=== PATIENT | male | born 1940 | race Caucasian/White ===

== ENCOUNTER 2017-02-10 10:58 | Inpatient (IN) | payer OTHER, BC ==
[2017-02-10 11:03] VITALS: BMI 28.5
[2017-02-10] MEDS ORDERED: SODIUM CHLORIDE 2,000 ML IV STA (11:25)
--- NOTE | 2017-02-10 11:25 | PDOC ---
History of Present Illness - General History Source: Patient Exam Limitations: No Limitations - History of Present Illness Initial Comments: 02/10/17 11:32 The patient is a 76 year old male with a significant past medical history of asthma, and hypertension, sent from Urgent Care center presenting to the Emergency Department with low back pain, low blood pressure, and shortness of breath. The patient reports that he was golfing on Tuesday morning, and started experiencing low back pain afterward. He admits that he could not walk on Tuesday due to the pain. He describes the back pain as at his lower to mid back , nonradiating, and exacerbated by any movement. He reports that the pain has become worse since Tuesday, and that he only slept for two hours last night due to the pain. He also reports shortness of breath. He states going to Urgent Care , where his blood pressure was 70, and was sent here to the ED. He admits that this week he drove down to [place] for a . He states that he has never experienced this type of back pain. The patient denies chest pain, palpitations, and diaphoresis. Patient denies neck pain. Patient denies nausea, vomiting, and diarrhea. Patient denies abdominal pain. Patient denies dizziness, or headache. Patient denies numbness or tingling to the extremities. PCP: Dr. Galeano <Sera Edmonds - Last Filed: 02/10/17 15:25> <Marybel Diallo - Last Filed: 02/10/17 18:21> - General Chief Complaint: Pain Stated Complaint: BACK PAIN Time Seen by Provider: 02/10/17 11:13 Past History <Sera Edmonds - Last Filed: 02/10/17 15:25> - Past Medical History Asthma: Yes HTN: Yes - Surgical History Abdominal Surgery: Yes (HERNIA) - Psycho/Social/Smoking Cessation Hx Suicidal Ideation: No Smoking History: Never smoked Information on smoking cessation initiated: No <Marybel Diallo - Last Filed: 02/10/17 18:21> - Past Medical History Allergies/Adverse Reactions: Allergies Allergy/AdvReac Type Severity Reaction Status Date / Time No Known Allergies Allergy Verified 02/10/17 11:03 Home Medications: Ambulatory Orders Atenolol [Tenormin -] 50 mg PO DAILY 02/10/17 Diltiazem HCl [Diltiazem 24Hr Cd] 300 mg PO DAILY 02/10/17 Fluticasone/Salmeterol [Advair Hfa 230-21 Mcg Inhaler] 1 inh PO BID 02/10/17 Losartan/Hydrochlorothiazide [Hyzaar 50-12.5 Tablet] 2 each PO BID 02/10/17 Montelukast Na [Singulair -] 10 mg PO DAILY 02/10/17 Review of Systems - Review of Systems Able to Perform ROS?: Yes Comments:: 02/10/17 11:33 GENERAL/CONSTITUTIONAL: + low blood pressure. No fever or chills. No weakness. HEAD, EYES, EARS, NOSE AND THROAT: No change in vision. No ear pain or discharge. No sore throat. CARDIOVASCULAR: + shortness of breath. No chest pain. RESPIRATORY: No cough, wheezing, or hemoptysis. GASTROINTESTINAL: No nausea, vomiting, diarrhea or constipation. GENITOURINARY: No dysuria, frequency, or change in urination. MUSCULOSKELETAL: + low back pain. No joint or muscle swelling or pain. No neck pain. SKIN: No rash NEUROLOGIC: No headache, vertigo, loss of consciousness, or change in strength/ sensation. ENDOCRINE: No increased thirst. No abnormal weight change. HEMATOLOGIC/LYMPHATIC: No anemia, easy bleeding, or history of blood clots. ALLERGIC/IMMUNOLOGIC: No hives or skin allergy. <Sera Edmonds - Last Filed: 02/10/17 15:25> *Physical Exam - Vital Signs Last Vital Signs Temp Pulse Resp BP Pulse Ox 97.7 F 87 18 84/62 92 L 02/10/17 10:58 02/10/17 10:58 02/10/17 10:58 02/10/17 10:58 02/10/17 10:58 - Physical Exam Comments: 02/10/17 11:34 GENERAL: Awake, alert, appears uncomfortable. Mild pallor HEAD: No signs of trauma EYES: PERRLA, EOMI, sclera anicteric, conjunctiva clear ENT: Auricles normal inspection, hearing grossly normal, nares patent, oropharynx clear without exudates. Moist mucosa NECK: Normal ROM, supple, no lymphadenopathy, JVD, or masses LUNGS: Breath sounds equal, clear to auscultation bilaterally. No wheezes, and no crackles HEART: Regular rate and rhythm, normal S1 and S2, no murmurs, rubs or gallops ABDOMEN: Soft, nontender, normoactive bowel sounds. No guarding, no rebound. No masses EXTREMITIES: Normal range of motion, no edema. No clubbing or cyanosis. No cords, erythema, or tenderness NEUROLOGICAL: Cranial nerves II through XII grossly intact. Normal speech SKIN: Warm, Dry, normal turgor, no rashes or lesions noted. <Sera Edmonds - Last Filed: 02/10/17 15:25> - Vital Signs Last Vital Signs Temp Pulse Resp BP Pulse Ox 97.7 F 87 18 84/62 92 L 02/10/17 10:58 02/10/17 10:58 02/10/17 10:58 02/10/17 10:58 02/10/17 10:58 <Marybel Diallo - Last Filed: 02/10/17 18:21> ED Treatment Course - LABORATORY CBC & Chemistry Diagram: 02/10/17 11:30 02/10/17 11:30 - RADIOLOGY Radiograph Interpretation: 02/10/17 14:00 Chest XRay As reviewed by Dr. Nikita Carlin IMPRESSION: No acute chest pathology. Weak inspiration. Old skeletal trauma. Elevated right hemidiaphragm. Clear lungs. More prominent heart than 06/21/2016. 02/10/17 15:[address]/ Pelvis CT/ Chest CT As reviewed by Dr. Lona Reyes IMPRESSION: Mild aneurysmal dilation of the ascending and mild aneurysmal dilation of the distal abdominal aorta and right common iliac artery without evidence of dissection. Multiple calcified atheromatous plaques are present. <Sera Edmonds - Last Filed: 02/10/17 15:25> - LABORATORY CBC & Chemistry Diagram: 02/10/17 11:30 02/10/17 11:30 - RADIOLOGY Radiology Studies Ordered: Category Date Time Status CHEST X-RAY PORTABLE* [RAD] Stat Radiology 02/10/17 11:17 Ordered <Marybel Diallo - Last Filed: 02/10/17 18:21> Medical Decision Making - Medical Decision Making 02/10/17 12:48 Dr. Traore was called at his office at 12:41. Awaiting call back. 02/10/17 13:03 Dr. Traore was overhead paged at 12:53. Awaiting call back. 02/10/17 13:06 Dr. Morrow spoke to Dr. Diallo about the patient's care. 02/10/17 13:59 Dr. Traore returned call at 1:[address] Diallo about the patient' s care. <Sera Edmonds - Last Filed: 02/10/17 15:25> - Medical Decision Making Initial presentation concerning for PE vs dissection. Patient with PE risk factors- hypotensive, recent long car trip. However, he is not tachycardic, and pain localizes to low back. He also has history of HTN, which raises risk of dissection. The pain localizes to low back and is not reproducible. I obtained CTA to r/o dissection, as it was more likely based on this presentation. D/w Dr. Traore, will evaluate. CTA negative for dissection. Patient was desatting on arrival back from CT- improved with O2 via nasal cannula. Etiology of symptoms and vital sign findings is unclear at present. D/w Dr. Morrow, will admit. <Marybel Diallo - Last Filed: 02/10/17 18:21> *DC/Admit/Observation/Transfer - Attestations Scribe Attestion: 02/10/17 11:34 Documentation prepared by Sera Edmonds, acting as senior medical transcriptionist for Marybel Diallo MD. <Sera Edmonds - Last Filed: 02/10/17 15:25> - Discharge Dispostion Admit: Yes <Marybel Diallo - Last Filed: 02/10/17 18:21> Diagnosis at time of Disposition: Back pain Qualifiers: Back pain location: low back pain Chronicity: acute Back pain laterality: bilateral Sciatica presence: without sciatica Qualified Code(s): M54.5 - Low back pain Hypotension Qualifiers: Hypotension type: unspecified hypotension type Qualified Code(s): I95.9 - Hypotension, unspecified - Discharge Dispostion Condition at time of disposition: Guarded - Referrals
[2017-02-10 11:47] LABS: BASOPHIL 0.6 % (0-2.0); EOSINOPHIL 0.1 % (0-4.5); MCH 34.4 pg (25.7-33.7); MCHC 33.4 g/dl (32.0-35.9); MEAN PLT VOLUME 8.6 fl (7.5-11.1); NEUTROPHILS 94.6 % (42.8-82.8); PLATELET COUNT 116 K/MM3 (134-434); RDW 13.8 % (11.9-15.9); WHITE BLOOD COUNT 10.5 K/mm3 (4.0-10.0)
[2017-02-10 12:05] LABS: ALBUMIN 3.2 g/dl (3.4-5.0); ANION GAP 18 (8-16); CALCIUM 8.8 mg/dL (8.5-10.1); CO2 22 mmol/L (21-32); COCKROFT - GAULT 44.58; CREATININE 1.8 mg/dL (0.7-1.3); GLUCOSE,RANDOM 91 mg/dL (74-106); SGPT/ALT 36 U/L (12-78); TOT PROT 7.2 g/dl (6.4-8.2)
[2017-02-10 12:07] LABS: INR 1.32 (0.82-1.09); PROTHROMBIN TIME (PATIENT) 14.6 SEC (9.98-11.88)
[2017-02-10 12:08] LABS: ALK PHOS 77 U/L (45-117); SGOT/AST 53 U/L (15-37); TROPONIN I < 0.02 ng/ml (0.00-0.05)
--- NOTE | 2017-02-10 13:08 | EKG ---
Test Reason : Blood Pressure : / mmHG Vent. Rate : 078 BPM Atrial Rate : 078 BPM P-R Int : 192 ms QRS Dur : 098 ms QT Int : 404 ms P-R-T Axes : 031 -23 -01 degrees QTc Int : 460 ms NORMAL SINUS RHYTHM MINIMAL VOLTAGE CRITERIA FOR LVH, MAY BE NORMAL VARIANT BORDERLINE ECG WHEN COMPARED WITH ECG OF 21-JUN-2016 12:21, NO SIGNIFICANT CHANGE WAS FOUND Confirmed by MARIBELL LOPEZ, DARIUS ([id number]) on 02/10/2017 1:08:19 PM Referred By: Confirmed By:DARIUS REYNA MD
[2017-02-10] MEDS ORDERED: SODIUM CHLORIDE 1,000 ML IV STA (13:13)
--- NOTE | 2017-02-10 15:27 | CONSULT ---
Consult Consult Specialty:: Nephrology Reason for Consultation:: elevated creatinine - History of Present Illness Chief Complaint: lower back pain History of Present Illness: Pt is a 76 year old male with pmhx of HTN who presents to the ER with back pain. He has had the pain intermittently for several days. He feels that it is mostly in his lower back. He went on several long car rides over the last week. He went on a [address] for a and few days he went on a 80 mile ride for a family wedding. He went to urgent care to have his back evaluated and he had a blood pressure of about 70 systolic, after which he was sent to the ER. He was taken for CT scan and given contrast to rule out disseciton. I was called to evaluate him for elevated creatinine. He denies dysuria or hematuria. He takes naproxen on a daily basis. - History Source History Provided By: Patient, Medical Record - Past Medical History Cardio/Vascular: Yes: HTN Pulmonary: Yes: Asthma - Smoking History Smoking history: Never smoked Home Medications - Allergies Allergies/Adverse Reactions: Allergies Allergy/AdvReac Type Severity Reaction Status Date / Time No Known Allergies Allergy Verified 02/10/17 11:03 - Home Medications Home Medications: Ambulatory Orders Atenolol [Tenormin -] 50 mg PO DAILY 02/10/17 Diltiazem HCl [Diltiazem 24Hr Cd] 300 mg PO DAILY 02/10/17 Fluticasone/Salmeterol [Advair Hfa 230-21 Mcg Inhaler] 1 inh PO BID 02/10/17 Losartan/Hydrochlorothiazide [Hyzaar 50-12.5 Tablet] 2 each PO BID 02/10/17 Montelukast Na [Singulair -] 10 mg PO DAILY 02/10/17 Family Disease History - Family Disease History Family History: Denies Review of Systems - Review of Systems Constitutional: denies: Chills, Diaphoresis, Fever Eyes: reports: No Symptoms HENT: reports: No Symptoms Neck: reports: No Symptoms Cardiovascular: denies: Edema, Palpitations Respiratory: denies: SOB, SOB on Exertion Gastrointestinal: reports: No Symptoms Genitourinary: reports: No Symptoms Musculoskeletal: reports: Back Pain Integumentary: reports: No Symptoms Neurological: reports: No Symptoms Endocrine: reports: No Symptoms Hematology/Lymphatic: reports: No Symptoms Physical Exam Vital Signs: Vital Signs Temperature 97.7 F 02/10/17 10:58 Pulse Rate 78 02/10/17 15:25 Respiratory Rate 18 02/10/17 15:25 Blood Pressure 118/72 02/10/17 15:25 O2 Sat by Pulse Oximetry (%) 98 02/10/17 15:25 Constitutional: Yes: Calm Eyes: Yes: Conjunctiva Clear HENT: Yes: Atraumatic Neck: Yes: Supple Cardiovascular: Yes: S1, S2 Respiratory: Yes: CTA Bilaterally Gastrointestinal: Yes: Soft Renal/: Yes: WNL Musculoskeletal: Yes: Back Pain Extremities: Yes: WNL Edema: No Neurological: Yes: Oriented Psychiatric: Yes: Oriented Labs: Laboratory Tests 02/10/17 02/10/17 02/10/17 11:30 11:30 11:30 WBC 10.5 H Hgb 14.3 Plt Count 116 L Sodium 134 L Potassium 4.3 Chloride 94 L Carbon Dioxide 22 Anion Gap 18 H BUN 42 H Creatinine 1.8 H Lactic Acid 3.6 H* AST 53 H ALT 36 Alkaline Phosphatase 77 Creatine Kinase 235 Troponin I < 0.02 B-Natriuretic Peptide Total Protein 7.2 Albumin 3.2 L 02/10/17 02/10/17 14:28 15:45 WBC Hgb Plt Count Sodium Potassium Chloride Carbon Dioxide Anion Gap BUN Creatinine Lactic Acid 2.8 H* AST ALT Alkaline Phosphatase Creatine Kinase Troponin I B-Natriuretic Peptide 2359.99 H Total Protein Albumin Imaging - Results Cat Scan: Report Reviewed (abd aneurysm, negative for dissection) Problem List - Problems (1) Back pain Code(s): M54.9 - DORSALGIA, UNSPECIFIED Qualifiers: Back pain location: low back pain Chronicity: acute Back pain laterality: bilateral Sciatica presence: without sciatica Qualified Code(s): M54.5 - Low back pain (2) Hypotension Code(s): I95.9 - HYPOTENSION, UNSPECIFIED Qualifiers: Hypotension type: unspecified hypotension type Qualified Code(s): I95.9 - Hypotension, unspecified (3) ALBERTO (acute kidney injury) Code(s): N17.9 - ACUTE KIDNEY FAILURE, UNSPECIFIED Assessment/Plan Current Medications Generic Name Dose Route Start Last Admin Trade Name Freq PRN Reason Stop Dose Admin Acetaminophen 650 mg 02/10/17 15:43 Tylenol - PO Q4H PRN FEVER OR PAIN Docusate Sodium 100 mg 02/10/17 22:00 Colace - PO BID [facility] Heparin Sodium (Porcine) 5,000 unit 02/10/17 22:00 Heparin - SQ TID DOMITILA Hydromorphone HCl 1 mg 02/10/17 15:43 02/10/17 17:11 Dilaudid Injection - IVPB 1 mg Q4H PRN Administration PAIN Sodium Chloride 1,000 mls @ 75 mls/hr 02/10/17 15:45 02/10/17 17:10 Normal Saline - IV 75 mls/hr ASDIR DOMITILA Administration Montelukast Sodium 10 mg 02/10/17 22:00 Singulair - PO HS DOMITILA Non-Formulary Medication 1 inh 02/10/17 22:00 Fluticasone/Salmeterol [Advair Hfa 230-21 Mcg Inhaler] PO BID DOMITILA Ondansetron HCl 4 mg 02/10/17 15:43 Zofran Injection IVPB Q6H PRN NAUSEA Oxycodone HCl 5 mg 02/10/17 15:43 Roxicodone - PO Q4H PRN PAIN Polyethylene Glycol 17 gm 02/11/17 10:00 Miralax (For Daily Use) - PO DAILY [facility] Zolpidem Tartrate 5 mg 02/10/17 17:39 Ambien - PO HS PRN Impression 1. ALBERTO 2. lactic acidosis 3. hypotension 4. hx of HTN 5. asthma 6. back pain 7. r/o dissection Plan - will need to check renal function at 48 hours - pt came in with back pain and went for ct to r/o dissection. He does have aneurysms. - blood pressure is improving - hold all bp meds for now - lactic acid improving as well - send blood cultures - send urine cultures - renal and bladder ultrasound - check urine lytes and ua - will follow Dr Traore
[2017-02-10] MEDS ORDERED: ONDANSETRON 4 MG/2 ML VIAL IVPB PRN (15:43)
[2017-02-10] MEDS ORDERED: SODIUM CHLORIDE 1,000 ML IV SCH (15:45)
--- NOTE | 2017-02-10 15:48 | HP ---
Admitting History and Physical - Primary Care Physician PCP: Josh Galeano - Admission Chief Complaint: My back is hurting History of Present Illness: Mr Santacruz is a very pleasant 76 year old male who comes in with back pain and hypotension. He recently drove to [facility] and back this past weekend. He was doing well on Tuesday, but on Tuesday he developed severe back pain. The back pain is mainly located on the left side in the middle and lower back. It does not radiated. He took some aleve that day and slept in a chair. On Tuesday he felt fine and carried out his activities of daily living. However today he woke up with severe back pain. He presented to the urgent care center and was found to be hypotensive and was sent to the ER. He says the pain is a dull type of pain. It does not radiate. It is worsened by movements. He does not have incontinence associated with it. He did not have difficulty walking secondary to the back pain, however he said he frequently has difficulty walking secondary to a lesion on his left foot. He did not have trauma to his back recently. He denies fevers, chills, chest pain, shortness of breath, nausea , vomiting, diarrhea, constipation, difficulty or pain on urination, or swelling. He is still having back pain. History Source: Patient Limitations to Obtaining History: No Limitations - Past Medical History Cardiovascular: Yes: HTN Pulmonary: Yes: COPD - Past Surgical History Past Surgical History: Yes: Hernia Repair - Smoking History Smoking history: Never smoked - Alcohol/Substance Use Hx Alcohol Use: No History of Substance Use: reports: None - Social History ADL: Independent History of Recent Travel: Yes (as above) Home Medications - Allergies Allergies/Adverse Reactions: Allergies Allergy/AdvReac Type Severity Reaction Status Date / Time No Known Allergies Allergy Verified 02/10/17 11:03 - Home Medications Home Medications: Ambulatory Orders Atenolol [Tenormin -] 50 mg PO DAILY 02/10/17 Diltiazem HCl [Diltiazem 24Hr Cd] 300 mg PO DAILY 02/10/17 Fluticasone/Salmeterol [Advair Hfa 230-21 Mcg Inhaler] 1 inh PO BID 02/10/17 Losartan/Hydrochlorothiazide [Hyzaar 50-12.5 Tablet] 2 each PO BID 02/10/17 Montelukast Na [Singulair -] 10 mg PO DAILY 02/10/17 Review of Systems Findings/Remarks: full review of systems obtained, as per HPI and otherwise negative Physical Examination Vital Signs: Vital Signs Temperature 98.3 F 02/10/17 15:27 Pulse Rate 63 02/10/17 15:27 Respiratory Rate 18 02/10/17 15:27 Blood Pressure 118/72 02/10/17 15:27 O2 Sat by Pulse Oximetry (%) 100 02/10/17 15:27 Constitutional: Yes: No Distress, Calm, Obese Eyes: Yes: Conjunctiva Clear, EOM Intact, PERRL HENT: Yes: Atraumatic, Normocephalic Cardiovascular: Yes: Regular Rate and Rhythm. No: Gallop, Murmur, Rub Respiratory: Yes: Regular, CTA Bilaterally. No: Rales, Rhonchi, Wheezes Gastrointestinal: Yes: Normal Bowel Sounds, Soft. No: Distention, Tenderness Musculoskeletal: Yes: Back Pain Extremities: Yes: WNL Edema: No Labs: Laboratory Results - last 24 hr 02/10/17 02/10/17 02/10/17 11:30 11:30 11:30 WBC 10.5 H RBC 4.17 Hgb 14.3 Hct 42.9 MCV 103.0 H MCHC 33.4 RDW 13.8 Plt Count 116 L MPV 8.6 Neutrophils % 94.6 H Lymphocytes % 1.2 L Monocytes % 3.5 L Eosinophils % 0.1 Basophils % 0.6 INR 1.32 H Sodium 134 L Potassium 4.3 Chloride 94 L Carbon Dioxide 22 Anion Gap 18 H BUN 42 H Creatinine 1.8 H Creat Clearance w eGFR 37.07 Random Glucose 91 Lactic Acid Calcium 8.8 Total Bilirubin 1.0 AST 53 H ALT 36 Alkaline Phosphatase 77 Creatine Kinase 235 Creatine Kinase Index 2.3 CK-MB (CK-2) 5.217 H CK-MB (CK-2) Rel Index Troponin I < 0.02 B-Natriuretic Peptide Total Protein 7.2 Albumin 3.2 L Urine Color Urine Appearance Urine pH Urine Protein Urine Glucose (UA) Urine Ketones Urine Blood Urine Nitrite Urine Bilirubin Urine Urobilinogen Ur Leukocyte Esterase Urine RBC Urine WBC Ur Epithelial Cells Granular Casts Urine Mucus 02/10/17 02/10/17 02/10/17 11:30 11:30 14:28 WBC RBC Hgb Hct MCV MCHC RDW Plt Count MPV Neutrophils % Lymphocytes % Monocytes % Eosinophils % Basophils % INR Sodium Potassium Chloride Carbon Dioxide Anion Gap BUN Creatinine Creat Clearance w eGFR Random Glucose Lactic Acid 3.6 H* Calcium Total Bilirubin AST ALT Alkaline Phosphatase Creatine Kinase Creatine Kinase Index CK-MB (CK-2) CK-MB (CK-2) Rel Index Cancelled Troponin I B-Natriuretic Peptide 2359.99 H Total Protein Albumin Urine Color Urine Appearance Urine pH Urine Protein Urine Glucose (UA) Urine Ketones Urine Blood Urine Nitrite Urine Bilirubin Urine Urobilinogen Ur Leukocyte Esterase Urine RBC Urine WBC Ur Epithelial Cells Granular Casts Urine Mucus 02/10/17 02/10/17 15:45 18:40 WBC RBC Hgb Hct MCV MCHC RDW Plt Count MPV Neutrophils % Lymphocytes % Monocytes % Eosinophils % Basophils % INR Sodium Potassium Chloride Carbon Dioxide Anion Gap BUN Creatinine Creat Clearance w eGFR Random Glucose Lactic Acid 2.8 H* Calcium Total Bilirubin AST ALT Alkaline Phosphatase Creatine Kinase Creatine Kinase Index CK-MB (CK-2) CK-MB (CK-2) Rel Index Troponin I B-Natriuretic Peptide Total Protein Albumin Urine Color Yellow Urine Appearance Clear Urine pH 5.0 Urine Protein 1+ H Urine Glucose (UA) Negative Urine Ketones Negative Urine Blood 2+ H Urine Nitrite Negative Urine Bilirubin Negative Urine Urobilinogen Negative Ur Leukocyte Esterase 3+ H Urine RBC 4 Urine WBC 24 Ur Epithelial Cells Rare Granular Casts 15 Urine Mucus Rare Imaging - Results Chest X-ray: Report Reviewed, Image Reviewed Cat Scan: Report Reviewed, Image Reviewed Problem List - Problems (1) SIRS (systemic inflammatory response syndrome) Assessment/Plan: -patient presents with signs of SIRS -admit to the hospital -hydrate with IVF -check urinalysis, urine culture, and blood culture -ID consult Code(s): R65.10 - SIRS OF NON-INFECTIOUS ORIGIN W/O ACUTE ORGAN DYSFUNCTION (2) Lactic acidosis Assessment/Plan: -unclear source, ? dehydration if having severe pain -also evaluate for infection -labs as above -CT scan abdomen reviewed and with normal bowel sounds without abdominal pain, low suspicion for ischemic colitis -hydrate with IVF Code(s): E87.2 - ACIDOSIS (3) ALBERTO (acute kidney injury) Assessment/Plan: -secondary to NSAID use -nephrology consulted -hydration Code(s): N17.9 - ACUTE KIDNEY FAILURE, UNSPECIFIED (4) Back pain Assessment/Plan: -consult neurosurgery -appears musculoskeletal -PT consult -pain control Code(s): M54.9 - DORSALGIA, UNSPECIFIED Qualifiers: Back pain location: low back pain Chronicity: acute Back pain laterality: bilateral Sciatica presence: without sciatica Qualified Code(s): M54.5 - Low back pain (5) Hypotension Code(s): I95.9 - HYPOTENSION, UNSPECIFIED Qualifiers: Hypotension type: unspecified hypotension type Qualified Code(s): I95.9 - Hypotension, unspecified
[2017-02-10] MEDS: HYDROmorphone HCL CARPU-JECT 1 MG/1 ML DISP.SYRIN IVPB PRN ×2 (17:11→21:12)
[2017-02-10] MEDS ORDERED: ZOLPIDEM TARTRATE 5 MG TABLET PO PRN (17:39)
[2017-02-10 19:30] LABS: URINE APPEARANCE CLEAR; URINE BILIRUBIN NEGATIVE (NEGATIVE); URINE COLOR YELLOW; URINE GLUCOSE (UA) NEGATIVE (NEGATIVE); URINE KETONE NEGATIVE (NEGATIVE); URINE NITRITE NEGATIVE (NEGATIVE); URINE UROBILINOGEN NEGATIVE E.U./dl (0.2-1.0)
[2017-02-10 19:31] LABS: URINE BLOOD 2+ (NEGATIVE); URINE LEUK ESTERASE 3+ (NEGATIVE); URINE PROTEIN 1+ (NEGATIVE)
[2017-02-10 19:33] LABS: GRANULAR CASTS 15 /lpf; URINE MUCUS RARE; URINE RBC 4 /hpf (0-3); URINE WBC 24 /hpf (3-5)
[2017-02-10] MEDS: MONTELUKAST NA 10 MG TABLET PO SCH (21:09)
[2017-02-10] MEDS: HEPARIN NA (PORCINE) 5,000 UNITS/ML 1ML VIAL SQ SCH (21:09)
[2017-02-10] MEDS: DOCUSATE SODIUM 100 MG CAPSULE (FP) PO SCH (21:09)
[2017-02-10] MEDS ORDERED: PATIENT'S OWN MEDICATION (NON-FORMULARY) (Fluticasone/Salmeterol [Advair Hfa 230-21 Mcg In PO SCH (22:00)
[2017-02-11] MEDS: HEPARIN NA (PORCINE) 5,000 UNITS/ML 1ML VIAL SQ SCH ×3 (05:21→21:38)
[2017-02-11] MEDS: HYDROmorphone HCL CARPU-JECT 1 MG/1 ML DISP.SYRIN IVPB PRN ×4 (05:22→21:46)
--- NOTE | 2017-02-11 07:27 | PN ---
Progress Note (short form) - Note Progress Note: NEUROSURGERY CONSULT DICTATED H/o Htn and COPD c/o 2 days h/o severe back pain and hypotension. Increased gardening, lifting over past week and extensive driving. NO LE pain radiation. Intermittent L foot pain. No B/B/ incontinence, Denies leg weakness/numbness/ tingling. R/O'd for aortic dissection. PE: AF, VSS HEENT- NC/AT; Neck- supple; Cor- RR; Lungs- no wheezes; Abd- obese, benign; Ext - No sign of DVT CN- intact; Motor- 5/5 except L IP 4, L Quad/EHL/TA/gastroc/inv/ev 4-; Sensation - diminished PP/LL L L4-5; DTR- hyporeflexic B Back- tender L > R LS junction CT abd- atelectasis B bases, mild dilatation of abd aorta; ? L4-5 vs L5-S1 DDD/ anterolisthesis on sagittal views WBC 10.5.Hgb 14.3; INR 1.32; BUN 42, Cr 1.8; Lactic acid 3.6 - 2.8; blood and urine culture pending UA- 24 WBC and 3+ josefina esterase Probable L4-5 or L5-S1 spondylolisthesis with mechanical LBP UTI Renal insufficiency (prerenal), f/u BUN/Cr Noncontrast MRI recommended to assess alignment and canal PT Neurontin-lidoderm Consider pain management input
[2017-02-11] MEDS: GABAPENTIN 100 MG CAPSULE (FP) PO SCH ×3 (08:25→21:38)
[2017-02-11] MEDS: LIDOCAINE 5% TOPICAL PATCH TP SCH (09:13)
[2017-02-11] MEDS: DOCUSATE SODIUM 100 MG CAPSULE (FP) PO SCH ×2 (09:13→21:38)
[2017-02-11] MEDS: POLYETHYLENE GLYCOL 3350 119 GM BTL PO SCH (09:14)
--- NOTE | 2017-02-11 09:23 | PN ---
Progress Note, Physician Chief Complaint: Back pain better but he has received Opiod for pain relief. History of Present Illness: Patient with ER visit seemingly for left sided low back pain was noted in Urgent Care to be hypotensive and sent to our ER. past Hx: Hypertension and Choledocholithiasis. Had been taking long trips and doing a lot of gardening in the last week. No cough or nausea or dysuria. Workup in ER revealed non dissecting TAA of 4.1 cm and AAA of 2.8cm. Small lung nodule seen and Cholelithiasis on the scans. Urine: some WBC an RBC and renal lab mildly high on admission and he had contrast; await today's renal lab. Renal and bladder sono OK but a large urine residual noted. Just had both blood C/S reportd as +. ID has been consulted. ??source ?discitis ??UTI or prostatitis causing sepsis. Dr. Mirza suggested MRI. - Current Medication List Current Medications: Active Medications Acetaminophen (Tylenol -) 650 mg PO Q4H PRN PRN Reason: FEVER OR PAIN Docusate Sodium (Colace -) 100 mg PO BID [facility] Last Admin: 02/11/17 09:13 Dose: 100 mg Gabapentin (Neurontin -) 100 mg PO TID [facility] Last Admin: 02/11/17 08:25 Dose: 100 mg Heparin Sodium (Porcine) (Heparin -) 5,000 unit SQ TID [facility] Last Admin: 02/11/17 05:21 Dose: 5,000 unit Hydromorphone HCl (Dilaudid Injection -) 1 mg IVPB Q4H PRN PRN Reason: PAIN Last Admin: 02/11/17 09:14 Dose: 1 mg Sodium Chloride (Normal Saline -) 1,000 mls @ 75 mls/hr IV ASDIR [facility] Last Admin: 02/10/17 17:10 Dose: 75 mls/hr Lidocaine (Lidoderm Patch -) 1 patch TP DAILY [facility] Last Admin: 02/11/17 09:13 Dose: 1 patch Miscellaneous (Lidoderm Patch Removal) 1 each MC DAILY@2200 [facility] Montelukast Sodium (Singulair -) 10 mg PO HS [facility] Last Admin: 02/10/17 21:09 Dose: Not Given Non-Formulary Medication (Fluticasone/Salmeterol [Advair Hfa 230-21 Mcg Inhaler] ) 1 inh PO BID [facility] Ondansetron HCl (Zofran Injection) 4 mg IVPB Q6H PRN PRN Reason: NAUSEA Oxycodone HCl (Roxicodone -) 5 mg PO Q4H PRN PRN Reason: PAIN Polyethylene Glycol (Miralax (For Daily Use) -) 17 gm PO DAILY [facility] Last Admin: 02/11/17 09:14 Dose: 17 gm Zolpidem Tartrate (Ambien -) 5 mg PO HS PRN Last Admin: 02/10/17 21:10 Dose: 5 mg - Objective Vital Signs: Vital Signs Temperature 99.1 F 02/11/17 05:46 Pulse Rate 85 02/11/17 05:46 Respiratory Rate 20 02/11/17 05:46 Blood Pressure 128/81 02/11/17 05:46 O2 Sat by Pulse Oximetry (%) 94 L 02/10/17 21:00 Constitutional: Yes: Calm, Mild Distress (when turning) Eyes: Yes: Conjunctiva Clear Cardiovascular: Yes: Regular Rate and Rhythm Respiratory: Yes: Regular, Rales (at bases) Gastrointestinal: Yes: Soft, Hyperactive Bowel Sounds. No: Tenderness Genitourinary: No: CVA Tenderness - Left Edema: No Neurological: Yes: Alert, Oriented (slightly lethargic due to pain Rx.) Labs: INR, PTT INR 1.32 (0.82-1.09) H 02/10/17 11:30 - ....Imaging Cat Scan: Report Reviewed Problem List - Problems (1) ALBERTO (acute kidney injury) Assessment/Plan: await repeat Renal lab post IV contrast Seen by renal MD Code(s): N17.9 - ACUTE KIDNEY FAILURE, UNSPECIFIED (2) Back pain Assessment/Plan: Acute and persists even with Opiod Rx Code(s): M54.9 - DORSALGIA, UNSPECIFIED Qualifiers: Back pain location: low back pain Chronicity: acute Back pain laterality: bilateral Sciatica presence: without sciatica Qualified Code(s): M54.5 - Low back pain (3) Hypotension Assessment/Plan: Improved on IV fluids but rales now noted; to cut back on IV rate. Code(s): I95.9 - HYPOTENSION, UNSPECIFIED Qualifiers: Hypotension type: unspecified hypotension type Qualified Code(s): I95.9 - Hypotension, unspecified (4) Lactic acidosis Code(s): E87.2 - ACIDOSIS (5) Sepsis associated hypotension Assessment/Plan: Blood C/S X2 positive on preliminary report ID MD has been consulted. Code(s): A41.9 - SEPSIS, UNSPECIFIED ORGANISM (6) AAA (abdominal aortic aneurysm) without rupture Assessment/Plan: 2.8 cm AAA and 4.1CM TAA Code(s): I71.4 - ABDOMINAL AORTIC ANEURYSM, WITHOUT RUPTURE
--- NOTE | 2017-02-11 09:26 | CONS ---
DATE OF CONSULTATION: 02/11/2017 REQUESTING PHYSICIAN: Jeb Morrow MD AUDIT DIRECTOR: Josh Simpson MD, Neurosurgery. CHIEF COMPLAINT: Acute lower back pain. HISTORY OF PRESENT ILLNESS: The patient is a 76-year-old right-handed male with history of hypertension and COPD, who complains of 2-day history of severe sudden onset lower back pain. He has a history of intermittent lower back pain in the past, but it has always been mild and self-containing. He has been doing a lot of gardening work and lifting of bags of mulch for his gardening this past week and has driven long distances. After playing golf Tuesday, he started experiencing severe pain in the evening into the next day. The pain is in the lower back. It is nonradiating. He denies significant shortness of breath, and has no fever or chills. He was found to be hypotensive. Aortic dissection was ruled out by CTA. He was admitted for further management of his pain and evaluation of his condition. He denies any leg weakness, numbness, or tingling, and has no bowel/bladder dysfunction. He did initially have some constipation, which resolved. Pain is rated as 10 out of 1-10 scale. PAST MEDICAL HISTORY: Hypertension, COPD, and obesity. MEDICATIONS: Currently includes Advair, Zofran, Tylenol, subcutaneous heparin, Ambien, Colace, MiraLAX, Singulair, Dilaudid, and oxycodone. ALLERGIES: To ALOE. SOCIAL HISTORY: He used to be a smoker and quit several years ago. He last smoke a cigar about 2 years ago. He drinks alcohol socially. He is retired and lives at home with his . REVIEW OF SYSTEMS: Otherwise negative for other major cardiovascular, pulmonary , gastrointestinal, genitourinary, endocrinologic, neurologic, or psychologic problems except for the above. PHYSICAL EXAMINATION: Vital signs: Temperature is 99.1, blood pressure is 128/81 (upon initial evaluation in the emergency room, blood pressure was 84/62), O2 saturation is 94% on 2 L. HEENT: Examination shows him to be normocephalic, atraumatic, anicteric. Neck: Supple. Coronary: Examination demonstrated a regular rhythm. Lungs: Clear. There are no wheezes. He has decreased breath sounds at the bases. Abdomen: Benign, but obese. Extremities: Examination shows no signs of DVT. Neurologic: He is awake and alert and oriented x4. Cranial nerve examination is intact 2-12. Motor examination shows 5/5 strength except left iliopsoas, which is 4/5, and left quadriceps, tibialis anterior, foot eversion, foot inversion, extensor hallucis longus, and gastrocnemius, which are 4-. Sensory examination shows diminished pinprick and light touch sensation of left L4 and L5 distribution. Distal vibratory sensation is slightly diminished. Deep tendon reflexes are hyporeflexive throughout. There is no pathological long tract sign. Examination of the back shows paraspinal muscle spasm and tenderness at the lumbosacral junction, left greater than right. His gait was not tested for safety reasons. LABORATORY EXAMINATION: Shows sodium to be 134, potassium is 4.3, BUN is 42, creatinine is 1.8. INR is 1.32. White blood cell count is 10,500, hemoglobin is 14.3, and platelet count is 116,000. Initial lactic acid is 3.6 and subsequent followup was 2.8. Troponin was less than 0.02. Urinalysis shows 3+ leukocyte esterase with 24 WBCs and 4 RBCs. CTA of the chest and abdomen demonstrated mild dilatation of the abdominal aorta. There is no aortic dissection or true aortic aneurysm. On the periphery of the abdominal CTA, there appears to be spondylolisthesis either at the L4-L5 or the L5-S1 level with degenerative disc disease. Detail was difficult to visualize because it was at the periphery of the imaging. IMPRESSION: 1. Hypertension. 2. Chronic obstructive pulmonary disease. 3. Urinary tract infection. 4. Elevated BUN/creatinine with possible prerenal azotemia. 5. Probable L4-L5 versus L5-S1 spondylolisthesis with lower back pain exacerbation. RECOMMENDATIONS: The patient presents with 2-day history of acute onset lower back pain. He has had some intermittent lower back pain in the past. He has no fevers or chills, even though he has an abnormal urinalysis. Urine culture is pending. This might be the cause of his recent increase in pain or alternatively, it could be from his increased recent physical exertion. An MRI of the lumbar spine is recommended to assess the lumbosacral junction in terms of possible/probable spondylolisthesis and spinal stenosis. Additionally, Lidoderm patches for his pain management regimen in addition to Neurontin. If his pain persists, pain management consultation could be helpful for possible pain management injections. I did advise the patient to lose weight and to pursue a course of physical therapy with emphasis on core modality treatment and core strengthening exercises. All questions were answered. JOSH ISMPSON M.D. MISHEL/[id number] MTDD
[2017-02-11 09:29] LABS: MCH 34.3 pg (25.7-33.7); MCHC 33.6 g/dl (32.0-35.9); MEAN CELL VOLUME 102.1 fl (80-96); MEAN PLT VOLUME 8.6 fl (7.5-11.1); PLATELET COUNT 91 K/MM3 (134-434); RDW 13.8 % (11.9-15.9); WHITE BLOOD COUNT 8.2 K/mm3 (4.0-10.0)
[2017-02-11 09:55] LABS: CALCIUM 8.2 mg/dL (8.5-10.1); COCKROFT - GAULT 66.87; CREATININE 1.2 mg/dL (0.7-1.3); MAGNESIUM 1.8 mg/dL (1.8-2.4); PHOSPHOROUS 3.5 mg/dL (2.5-4.9)
[2017-02-11] MEDS: SODIUM CHLORIDE 1,000 ML IV SCH ×2 (10:00→21:39)
--- NOTE | 2017-02-11 11:16 | PN ---
Progress Note (short form) - Note Progress Note: ID Consult dictated 76 y/o male admitted with worsening low back pain Blood c/s + GPCCL x 3/4 bottles Staph bacteremia, possible endocarditis Possible discitis/ vertebral osteo/ paraspinal abscess R lower back rash ? portal of entry of staph Lactic acidosis Thrombocytopenia secondary to sepsis Azotemia Await c/s MRI Echo ESR, CRP Empiric vancomycin
[2017-02-11] MEDS ORDERED: POTASSIUM CHLORIDE ORAL LIQUID 20 MEQ/15 ML PO ONE (12:00)
--- NOTE | 2017-02-11 12:08 | CONS ---
DATE OF CONSULTATION: DATE OF DICTATION: 02/11/2017 HISTORY OF PRESENT ILLNESS: A 76-year-old male evaluated for positive blood cultures. The patient presents with worsening low back pain. He reports that over the past 2 to 3 weeks he has significantly increased his activities. He had been working on his 's garden and had been carrying heavy objects. In addition, he was golfing and had driven long distances within the past week. This past Tuesday, February 08, he developed worsening low back pain to the point where he was unable to ambulate. He had presented to an urgent care center where he was found to be hypotensive and was referred to the emergency room. Patient was noted to be hypotensive with an elevated lactic acid level and acute renal failure. He was admitted to the hospital. Blood cultures were obtained and are now positive, gram-positive cocci in clusters in all 4 bottles. He denies any traumatic injuries. He did apply a topical anesthetic to the low back area and had developed a blistering rash above the right buttock. No purulent drainage was reported. He denies any fever or chills. No recent skin infections. No recent dental work. PAST MEDICAL HISTORY: Positive for bronchial asthma, hypertension. ALLERGIES: No known drug allergies. MEDICATIONS: Include Lidoderm, Zofran, Neurontin, Ambien, Colace, Singulair, Dilaudid. SOCIAL HISTORY: He resides at home. He is a nonsmoker, nondrinker. SYSTEMS REVIEW: Neurologic: No loss of consciousness, seizure activity, focal weakness. Cardiac: Negative chest pain or palpitations. Respiratory: Negative cough or sputum production. Gastrointestinal: Negative vomiting or diarrhea. Genitourinary: Negative for urinary tract infection. LABORATORY DATA: White count on admission 10.2, presently 8.2, hematocrit 40.3, platelet count 91. BUN 39, creatinine 1.2. Lactic acid 2.8. Urinalysis: Red cells 4, 24 white cells. Chest x-ray: Negative for acute infiltrate. PHYSICAL EXAMINATION: General: He is out of bed to chair. He is awake and alert. He is in no acute distress. Vital Signs: Temperature 97.9, T-max 99.1, blood pressure 133/87, pulse 94 and regular, respiration 20 per minute. HEENT: Sclerae anicteric. No conjunctival hemorrhages. Cardiac: Heart sounds S1, S2. Tachycardic. No murmur. Lungs: Crepitations, bases bilaterally. Abdomen: Obese, soft, nontender. Extremities: Edema 1+. IMPRESSION: A 76-year-old male admitted with worsening low back pain, now with positive blood cultures for Staphylococcus. 1. Staphylococcal bacteremia, possible endocarditis. 2. Possible diskitis/vertebral osteomyelitis/paraspinal abscess. 3. Lactic acidosis. 4. Thrombocytopenia secondary to sepsis. 5. Azotemia. RECOMMENDATIONS: Source of Staphylococcal bacteremia not clear. He does have a blistering rash present on the right buttock area which may be the portal of entry. Await identification of blood isolate. Start empiric vancomycin. Obtain sedimentation rate, C-reactive protein, MRI of the lumbar spine, echocardiogram. Case discussed with Dr. Josh Mirza. Will follow. Thank you for the kind referral. MARIA TERESA HALL M.D. [id number]
[2017-02-11 12:52] LABS: PLATELET ESTIMATE DECREASED (NORMAL)
--- NOTE | 2017-02-11 13:01 | PN ---
Progress Note, Physician History of Present Illness: Pt seen and examined at bedside. He is awake and alert. He does have shortness of breath today. He was found to have bacteremia. - Current Medication List Current Medications: Active Medications Acetaminophen (Tylenol -) 650 mg PO Q4H PRN PRN Reason: FEVER OR PAIN Docusate Sodium (Colace -) 100 mg PO BID [facility] Last Admin: 02/11/17 09:13 Dose: 100 mg Gabapentin (Neurontin -) 100 mg PO TID [facility] Last Admin: 02/11/17 08:25 Dose: 100 mg Heparin Sodium (Porcine) (Heparin -) 5,000 unit SQ TID [facility] Last Admin: 02/11/17 05:21 Dose: 5,000 unit Hydromorphone HCl (Dilaudid Injection -) 1 mg IVPB Q4H PRN PRN Reason: PAIN Last Admin: 02/11/17 09:14 Dose: 1 mg Sodium Chloride (Normal Saline -) 1,000 mls @ 100 mls/hr IV ASDIR [facility] Last Admin: 02/11/17 10:00 Dose: 100 mls/hr Vancomycin HCl 1,250 mg/ (Dextrose) 250 mls @ 166.667 mls/hr IVPB BID@0100, 1300 [facility] Lidocaine (Lidoderm Patch -) 1 patch TP DAILY [facility] Last Admin: 02/11/17 09:13 Dose: 1 patch Miscellaneous (Lidoderm Patch Removal) 1 each MC DAILY@2200 [facility] Montelukast Sodium (Singulair -) 10 mg PO HS [facility] Last Admin: 02/10/17 21:09 Dose: Not Given Non-Formulary Medication (Fluticasone/Salmeterol [Advair Hfa 230-21 Mcg Inhaler] ) 1 inh PO BID [facility] Ondansetron HCl (Zofran Injection) 4 mg IVPB Q6H PRN PRN Reason: NAUSEA Oxycodone HCl (Roxicodone -) 5 mg PO Q4H PRN PRN Reason: PAIN Polyethylene Glycol (Miralax (For Daily Use) -) 17 gm PO DAILY [facility] Last Admin: 02/11/17 09:14 Dose: 17 gm Zolpidem Tartrate (Ambien -) 5 mg PO HS PRN Last Admin: 02/10/17 21:10 Dose: 5 mg - Objective Vital Signs: Vital Signs Temperature 97.9 F 02/11/17 09:50 Pulse Rate 94 H 02/11/17 09:50 Respiratory Rate 20 02/11/17 09:50 Blood Pressure 133/87 02/11/17 09:50 O2 Sat by Pulse Oximetry (%) 94 L 02/11/17 09:00 Constitutional: Yes: Calm Eyes: Yes: Conjunctiva Clear HENT: Yes: Atraumatic Cardiovascular: Yes: S1, S2 Respiratory: Yes: On Nasal O2, Wheezes Gastrointestinal: Yes: Soft, Abdomen, Obese Genitourinary: Yes: WNL Musculoskeletal: Yes: Back Pain Extremities: Yes: WNL Edema: No Neurological: Yes: Oriented Psychiatric: Yes: Oriented Labs: CBC, BMP 02/11/17 09:15 02/11/17 09:15 INR, PTT INR 1.32 (0.82-1.09) H 02/10/17 11:30 - ....Imaging Ultrasound: Report Reviewed Problem List - Problems (1) Back pain Code(s): M54.9 - DORSALGIA, UNSPECIFIED Qualifiers: Back pain location: low back pain Chronicity: acute Back pain laterality: bilateral Sciatica presence: without sciatica Qualified Code(s): M54.5 - Low back pain (2) Hypotension Code(s): I95.9 - HYPOTENSION, UNSPECIFIED Qualifiers: Hypotension type: unspecified hypotension type Qualified Code(s): I95.9 - Hypotension, unspecified (3) ALBERTO (acute kidney injury) Code(s): N17.9 - ACUTE KIDNEY FAILURE, UNSPECIFIED Assessment/Plan Current Medications Generic Name Dose Route Start Last Admin Trade Name Harshalq PRN Reason Stop Dose Admin Acetaminophen 650 mg 02/10/17 15:43 Tylenol - PO Q4H PRN FEVER OR PAIN Docusate Sodium 100 mg 02/10/17 22:00 02/11/17 09:13 Colace - PO 100 mg BID [facility] Administration Gabapentin 100 mg 02/11/17 08:00 02/11/17 08:25 Neurontin - PO 100 mg TID [facility] Administration Heparin Sodium (Porcine) 5,000 unit 02/10/17 22:00 02/11/17 05:21 Heparin - SQ 5,000 unit TID [facility] Administration Hydromorphone HCl 1 mg 02/10/17 15:43 02/11/17 09:14 Dilaudid Injection - IVPB 1 mg Q4H PRN Administration PAIN Sodium Chloride 1,000 mls @ 100 mls/hr 02/11/17 09:45 02/11/17 10:00 Normal Saline - IV 100 mls/hr ASDIR [facility] Administration Vancomycin HCl 1,250 mg/ 250 mls @ 166.667 mls/hr 02/11/17 13:00 Dextrose IVPB BID@0100,1300 [facility] Lidocaine 1 patch 02/11/17 10:00 02/11/17 09:13 Lidoderm Patch - TP 1 patch DAILY [facility] Administration Miscellaneous 1 each 02/11/17 22:00 Lidoderm Patch Removal MC DAILY@2200 [facility] Montelukast Sodium 10 mg 02/10/17 22:00 02/10/17 21:09 Singulair - PO Not Given HS [facility] Non-Formulary Medication 1 inh 02/10/17 22:00 Fluticasone/Salmeterol [Advair Hfa 230-21 Mcg Inhaler] PO BID [facility] Ondansetron HCl 4 mg 02/10/17 15:43 Zofran Injection IVPB Q6H PRN NAUSEA Oxycodone HCl 5 mg 02/10/17 15:43 Roxicodone - PO Q4H PRN PAIN Polyethylene Glycol 17 gm 02/11/17 10:00 02/11/17 09:14 Miralax (For Daily Use) - PO 17 gm DAILY [facility] Administration Zolpidem Tartrate 5 mg 02/10/17 17:39 02/10/17 21:10 Ambien - PO 5 mg HS PRN Administration Laboratory Tests 02/10/17 18:40 Urine Protein 1+ H Urine Blood 2+ H Ur Leukocyte Esterase 3+ H Impression 1. ALBERTO 2. lactic acidosis 3. hypotension 4. hx of HTN 5. asthma 6. back pain 7. r/o dissection 8. sepsis 9. bacteremia Plan - creatinine is improved - ID input appreciated, agree with abx. Pt is going for imaging to identify a possible source - decrease rate of fluids - replace potassium - check mag level - cont to follow cultures - restart asthma meds - will follow Dr Traore
[2017-02-11] MEDS: VANCOMYCIN 1,250 MG in DEXTROSE 5%-WATER - 250 ML IVPB SCH (13:48)
[2017-02-11] MEDS: ACETAMINOPHEN 325 MG TABLET (FP) PO PRN (14:37)
[2017-02-11] MEDS: oxyCODONE HCL 5 MG TABLET PO PRN (14:38)
[2017-02-11] MEDS: ALBUTEROL SO4 2.5/IPRATROPIUM 0.5 INH SOL 3 ML VIAL.NEB. NEB PRN ×2 (15:00→21:08)
[2017-02-11] MEDS: MONTELUKAST NA 10 MG TABLET PO SCH (21:38)
[2017-02-11] MEDS: LIDOCAINE PATCH REMOVAL MC SCH (22:00)
[2017-02-12] MEDS: VANCOMYCIN 1,250 MG in DEXTROSE 5%-WATER - 250 ML IVPB SCH (01:37)
[2017-02-12] MEDS: HYDROmorphone HCL CARPU-JECT 1 MG/1 ML DISP.SYRIN IVPB PRN ×3 (03:27→20:29)
[2017-02-12] MEDS: HEPARIN NA (PORCINE) 5,000 UNITS/ML 1ML VIAL SQ SCH ×3 (06:08→21:37)
[2017-02-12] MEDS: GABAPENTIN 100 MG CAPSULE (FP) PO SCH ×3 (06:09→21:38)
[2017-02-12] MEDS: oxyCODONE HCL 5 MG TABLET PO PRN ×2 (06:33→23:02)
[2017-02-12] MEDS: ACETAMINOPHEN 325 MG TABLET (FP) PO PRN (06:33)
[2017-02-12] MEDS ORDERED: dilTIAZem HCL 50 MG/10 ML - 10 ML VIAL IVPUSH ONE ×3 (06:51→08:30)
--- NOTE | 2017-02-12 07:23 | HOSP ---
Subjective - Review of Symptoms Events since last encounter: patient develops a new a fib with RVR 130's no chest pain, sob; BP 140's systolic EKG no ACS, afib RVR 130, l axis div, no st changes compared to admission ekg No history of a fib per family A fib RVR -cardizem 10 IV; no effect of heart rate, start toprol xl 25 d and add PRN cardizem -start full dose a/c with Hep -Cardio consult -troponin, TFTs Physical Examination Vital Signs: Vital Signs Temperature 97.8 F 02/12/17 02:09 Pulse Rate 109 H 02/12/17 02:09 Respiratory Rate 20 02/12/17 02:09 Blood Pressure 145/89 02/12/17 02:09 O2 Sat by Pulse Oximetry (%) 94 L 02/11/17 21:00 Visit type - Emergency Visit Emergency Visit: Yes ED Registration Date: 02/10/17 Care time: The patient presented to the Emergency Department on the above date and was hospitalized for further evaluation of their emergent condition. - New Patient This patient is new to me today: Yes Date on this admission: 02/12/17 - Critical Care Critical Care patient: No
[2017-02-12 07:30] LABS: MCH 33.6 pg (25.7-33.7); MEAN CELL VOLUME 101.9 fl (80-96); MEAN PLT VOLUME 9.1 fl (7.5-11.1); PLATELET COUNT 55 K/MM3 (134-434); RDW 14.1 % (11.9-15.9)
[2017-02-12 07:44] LABS: INR 1.2 (0.82-1.09); PROTHROMBIN TIME (PATIENT) 13.2 SEC (9.98-11.88)
--- NOTE | 2017-02-12 08:13 | PN ---
Progress Note (short form) - Note Progress Note: NEUROSURGERY Some LBP ON vanco for gram + bacteremia PE: Tmax 100.2, VSS HEENT- NC/AT; Neck- supple; Cor- RR; Lungs- no wheezes; Abd- obese, benign; Ext - No sign of DVT CN- intact; Motor- 5/5 except L IP 4, L Quad/EHL/TA/gastroc/inv/ev 4-; Sensation - diminished PP/LT L L4-5; DTR- hyporeflexic B Back- tender L > R LS junction CT abd- atelectasis B lung bases, mild dilatation of abd aorta; ? L4-5 vs L5-S1 DDD/anterolisthesis on sagittal views WBC 7; CRP 30.9; ESR pending Blood culture - + staph (gram + cocci in clusters) sensitivity pending Probable L4-5 or L5-S1 spondylolisthesis with mechanical LBP UTI Renal insufficiency (prerenal), f/u BUN/Cr Noncontrast LS spine MRI recommended to assess alignment and canal PT Neurontin-lidoderm D/w Dr Herrera
[2017-02-12] MEDS ORDERED: ALPRAZolam 0.25 MG TABLET PO ONE (08:30)
[2017-02-12] MEDS ORDERED: dilTIAZem HCL 30 MG TABLET (FP) PO ONE (08:30)
[2017-02-12] MEDS: HEPARIN - 25,000 UNIT in SODIUM CHLORIDE 495 ML IV SCH (08:55)
--- NOTE | 2017-02-12 09:29 | PN ---
Progress Note, Physician Chief Complaint: ID IN Severe pain due to low back pain tachcardic Vancomycin Dilaudid - Current Medication List Current Medications: Active Medications Acetaminophen (Tylenol -) 650 mg PO Q4H PRN PRN Reason: FEVER OR PAIN Last Admin: 02/12/17 06:33 Dose: 650 mg Albuterol/Ipratropium (Duoneb -) 1 amp NEB Q6H PRN PRN Reason: SHORTNESS OF BREATH Last Admin: 02/11/17 21:08 Dose: 1 amp Diltiazem HCl (Cardizem Injection -) 10 mg IVPUSH Q4H PRN PRN Reason: TACHYCARDIA Docusate Sodium (Colace -) 100 mg PO BID [facility] Last Admin: 02/11/17 21:38 Dose: 100 mg Gabapentin (Neurontin -) 100 mg PO TID [facility] Last Admin: 02/12/17 06:09 Dose: 100 mg Heparin Sodium (Porcine) (Heparin -) 5,000 unit SQ TID [facility] Last Admin: 02/12/17 06:08 Dose: 5,000 unit Heparin Sodium (Porcine) (Heparin -) 1,000 unit IVPUSH PRN PRN PRN Reason: Heparin Heparin Sodium (Porcine) (Heparin -) 5,000 unit IVPUSH PRN PRN PRN Reason: Heparin Hydromorphone HCl (Dilaudid Injection -) 1 mg IVPB Q4H PRN PRN Reason: PAIN Last Admin: 02/12/17 03:27 Dose: 1 mg Vancomycin HCl 1,250 mg/ (Dextrose) 250 mls @ 166.667 mls/hr IVPB BID@0100, 1300 [facility] Last Admin: 02/12/17 01:37 Dose: 166.667 mls/hr Heparin Sodium (Porcine) 25, (000 unit/ Sodium Chloride) 500 mls @ 20 mls/hr IV TITR [facility]; 1,000 UNIT/HR PRN Reason: Protocol Last Admin: 02/12/17 08:55 Dose: 20 mls/hr Lidocaine (Lidoderm Patch -) 1 patch TP DAILY [facility] Last Admin: 02/11/17 09:13 Dose: 1 patch Metoprolol Succinate (Toprol Xl -) 25 mg PO DAILY [facility] Miscellaneous (Lidoderm Patch Removal) 1 each [facility] DAILY@2200 [facility] Last Admin: 02/11/17 22:00 Dose: Not Given Montelukast Sodium (Singulair -) 10 mg PO HS [facility] Last Admin: 02/11/17 21:38 Dose: 10 mg Non-Formulary Medication (Fluticasone/Salmeterol [Advair Hfa 230-21 Mcg Inhaler] ) 1 inh PO BID [facility] Ondansetron HCl (Zofran Injection) 4 mg IVPB Q6H PRN PRN Reason: NAUSEA Oxycodone HCl (Roxicodone -) 5 mg PO Q4H PRN PRN Reason: PAIN Last Admin: 02/12/17 06:33 Dose: 5 mg Polyethylene Glycol (Miralax (For Daily Use) -) 17 gm PO DAILY [facility] Last Admin: 02/11/17 09:14 Dose: 17 gm Zolpidem Tartrate (Ambien -) 5 mg PO HS PRN Last Admin: 02/10/17 21:10 Dose: 5 mg - Objective Vital Signs: Vital Signs Temperature 97.9 F 02/12/17 06:30 Pulse Rate 135 H 02/12/17 06:30 Respiratory Rate 20 02/12/17 06:30 Blood Pressure 113/69 02/12/17 06:30 O2 Sat by Pulse Oximetry (%) 94 L 02/11/17 21:00 Constitutional: Yes: Moderate Distress, Other (Distress) Eyes: Yes: Other (No petechiae) Neck: Yes: WNL, Supple Cardiovascular: Yes: Tachycardia, S1. No: Murmur Respiratory: Yes: WNL, Regular, CTA Bilaterally Gastrointestinal: Yes: WNL, Normal Bowel Sounds, Soft. No: Tenderness, Tenderness, Epigastrium Edema: No Neurological: Yes: WNL Labs: CBC, BMP 02/12/17 06:00 INR, PTT INR 1.20 (0.82-1.09) H 02/12/17 06:00 Assessment/Plan Microbiology 02/10/17 18:40 Urine - Urine Clean Catch Urine Culture - Final NO GROWTH OBTAINED 02/10/17 20:30 Blood - Peripheral Venous Blood Culture - Preliminary Presumptive Mssa (Pbp2a Neg) 02/10/17 20:25 Blood - Peripheral Venous Blood Culture - Preliminary Presumptive Mssa (Pbp2a Neg) Laboratory Tests 02/10/17 02/11/17 02/11/17 18:40 09:15 09:55 WBC Hgb Plt Count BUN 39 H Creatinine 1.2 D C-Reactive Protein 30.9 H Urine RBC 4 Urine WBC 24 02/12/ 06:00 WBC 7.0 Hgb 13.4 Plt Count 55 L D BUN Creatinine C-Reactive Protein Urine RBC Urine WBC Assessment 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
[2017-02-12 09:42] LABS: ALBUMIN 2.2 g/dl (3.4-5.0); BILIRUBIN,TOTAL 0.7 mg/dL (0.2-1.0); CALCIUM 7.8 mg/dL (8.5-10.1); COCKROFT - GAULT 72.95; CREATININE 1.1 mg/dL (0.7-1.3); GLUCOSE,RANDOM 80 mg/dL (74-106); SGOT/AST 36 U/L (15-37); TOT PROT 5.7 g/dl (6.4-8.2)
--- NOTE | 2017-02-12 09:52 | CON.CARD ---
Consult Consult Specialty:: Cardiology Referred by:: Josh Galeano MD Reason for Consultation:: Rapid afib - History of Present Illness Chief Complaint: Back pain History of Present Illness: Mr Santacruz is a 76 year old male h/o HTN, 4.1 cm TAA admitted with severe lower back pain and hypotension without fevers or chills, noted to have MSSA bacteremia with concern for possible discitis/ vertebral osteo/ paraspinal abscess, he developed rapid afib in 140's, reports dyspnea, but denies chest pain, near or true syncope, palpitations, orthopnea, PND or LE edema, given Cardizem for rate control, started on heparin gtt, reports left foot pain and parasthesias. - History Source History Provided By: Patient Limitations to Obtaining History: No Limitations - Past Medical History Cardio/Vascular: Yes: HTN Pulmonary: Yes: COPD - Past Surgical History Past Surgical History: Yes: Hernia Repair - Alcohol/Substance Use Hx Alcohol Use: No History of Substance Use: reports: None - Smoking History Smoking history: Never smoked - Social History ADL: Independent History of Recent Travel: Yes (as above) Home Medications - Allergies Allergies/Adverse Reactions: Allergies Allergy/AdvReac Type Severity Reaction Status Date / Time aloe Allergy Verified 02/10/17 22:58 aloe vera Allergy Verified 02/10/17 22:58 - Home Medications Home Medications: Ambulatory Orders Atenolol [Tenormin -] 50 mg PO DAILY 02/10/17 Diltiazem HCl [Diltiazem 24Hr Cd] 300 mg PO DAILY 02/10/17 Fluticasone/Salmeterol [Advair Hfa 230-21 Mcg Inhaler] 1 inh PO BID 02/10/17 Losartan/Hydrochlorothiazide [Hyzaar 50-12.5 Tablet] 2 each PO BID 02/10/17 Montelukast Na [Singulair -] 10 mg PO DAILY 02/10/17 Review of Systems - Review of Systems Musculoskeletal: reports: Back Pain Neurological: reports: Parasthesia (Left foot) Vital Signs: Vital Signs Temperature 97.9 F 02/12/17 06:30 Pulse Rate 135 H 02/12/17 06:30 Respiratory Rate 20 02/12/17 06:30 Blood Pressure 113/69 02/12/17 06:30 O2 Sat by Pulse Oximetry (%) 94 L 02/11/17 21:00 Constitutional: Yes: No Distress, Calm Neck: Yes: Supple Respiratory: Yes: Regular, Diminished Gastrointestinal: Yes: Normal Bowel Sounds, Soft Cardiovascular: Yes: Tachycardia, Pulse Irregular JVD: No Carotid Bruit: No Heart Sounds: Yes: S1, S2 Murmur: Yes: Systolic Murmur, Grade 1 Edema: No - Other Data Labs, Other Data: CBC, BMP 02/12/17 06:00 02/12/17 06:00 INR, PTT INR 1.20 (0.82-1.09) H 02/12/17 06:00 Troponin, BNP 02/12/17 06:00 Troponin I Cancelled Troponin, BNP 02/12/17 06:00 Troponin I Cancelled Rapid afib @ 142 Problem List - Problems (1) ALBERTO (acute kidney injury) Code(s): N17.9 - ACUTE KIDNEY FAILURE, UNSPECIFIED (2) Lactic acidosis Code(s): E87.2 - ACIDOSIS (3) Sepsis associated hypotension Code(s): A41.9 - SEPSIS, UNSPECIFIED ORGANISM (4) MSSA (methicillin susceptible Staphylococcus aureus) septicemia Code(s): A41.01 - SEPSIS DUE TO METHICILLIN SUSCEPTIBLE STAPHYLOCOCCUS AUREUS (5) Paroxysmal atrial fibrillation with RVR Code(s): I48.0 - PAROXYSMAL ATRIAL FIBRILLATION (6) Thrombocytopenia Code(s): D69.6 - THROMBOCYTOPENIA, UNSPECIFIED (7) Hypokalemia Code(s): E87.6 - HYPOKALEMIA (8) Back pain Code(s): M54.9 - DORSALGIA, UNSPECIFIED Qualifiers: Back pain location: low back pain Chronicity: acute Back pain laterality: bilateral Sciatica presence: without sciatica Qualified Code(s): M54.5 - Low back pain (9) Thoracic aortic aneurysm without rupture Code(s): I71.2 - THORACIC AORTIC ANEURYSM, WITHOUT RUPTURE Assessment/Plan 02/11/2017 Echo: Mildly decreased LV fxn with mild-mod anterior, anteroseptal HK with mild RV dysfunction, mild MR, TR, AR, ND, mildly dilated ascending aortic root 1. MSSA bacteremia with possible endocarditis, possible discitis/vertebral osteo /paraspinal abscess 2. Paroxysmal atrial fibrillation with RVR [id number] with possible left foot thromboembolism vs septic emboli 3. ALBERTO and lactic acidosis due to hemodynamic alterations improved 4. 4.1 cm TAA 5. Thrombocytopenia due to sepsis P:1. Rate control Toprol XL 25 qd as hemodynamics tolerate, hep gtt with caution given thrombocytropenia pending noncontrast L-S spinal MRI 2. Replete K, analgesia as needed, f/u surveillance bld cx, Ancef per sensitivities, check esr and crp 3. May be candidate for FABIOLA if persistently bacteremic despite abx course 4. Thank you for consultative opportunity
[2017-02-12 10:17] LABS: ANION GAP 14 (8-16); CO2 22 mmol/L (21-32); SGPT/ALT 24 U/L (12-78); URIC ACID 4.7 mg/dL (2.6-7.2)
[2017-02-12 10:24] LABS: ALK PHOS 78 U/L (45-117); FREE T4 1.31 ng/dl (0.76-1.16); THYROID STIMULATING HORMONE 0.85 uIU/ml (0.358-3.74); TROPONIN I < 0.02 ng/ml (0.00-0.05)
[2017-02-12] MEDS ORDERED: POTASSIUM CHLORIDE ORAL LIQUID 20 MEQ/15 ML PO ONE (10:24)
[2017-02-12] MEDS: CEFAZOLIN 2 GM/D5W 50 ML IVPB SCH ×2 (10:31→17:24)
[2017-02-12] MEDS: METOPROLOL SUCCINATE 25 MG TAB.SR.24H (FP) PO SCH (10:31)
[2017-02-12] MEDS: DOCUSATE SODIUM 100 MG CAPSULE (FP) PO SCH ×2 (10:31→21:38)
[2017-02-12] MEDS: LIDOCAINE 5% TOPICAL PATCH TP SCH (10:32)
[2017-02-12] MEDS: POLYETHYLENE GLYCOL 3350 119 GM BTL PO SCH (10:36)
--- NOTE | 2017-02-12 11:06 | PN ---
Progress Note, Physician Chief Complaint: Severe pain dorsum of left foot with paresthesia and low back in oscar of left sacroiliac and LS spine. History of Present Illness: Patient admitted with severe low back pain and left foot pain with hypotension. It was thought that this was an acute low back injury from recent gardening and prolonged travel but with hypotension and severe pain and + Blood C/S the working Dx. is Acute Osteomyelitis/ Discitis; R/O SBE. LS CAT Scan noted and we await todays MRI of LS spine. Also Acute A. Fib and renal failure which was not exacerbated by IV contrast in ER. Seen by Cardiology this AM. PH of hypertension and Choledocholithiasis. - Current Medication List Current Medications: Active Medications Acetaminophen (Tylenol -) 650 mg PO Q4H PRN PRN Reason: FEVER OR PAIN Last Admin: 02/12/17 06:33 Dose: 650 mg Albuterol/Ipratropium (Duoneb -) 1 amp NEB Q6H PRN PRN Reason: SHORTNESS OF BREATH Last Admin: 02/11/17 21:08 Dose: 1 amp Diltiazem HCl (Cardizem Injection -) 10 mg IVPUSH Q4H PRN PRN Reason: TACHYCARDIA Docusate Sodium (Colace -) 100 mg PO BID [facility] Last Admin: 02/12/17 10:31 Dose: 100 mg Gabapentin (Neurontin -) 100 mg PO TID [facility] Last Admin: 02/12/17 06:09 Dose: 100 mg Heparin Sodium (Porcine) (Heparin -) 5,000 unit SQ TID [facility] Last Admin: 02/12/17 06:08 Dose: 5,000 unit Heparin Sodium (Porcine) (Heparin -) 1,000 unit IVPUSH PRN PRN PRN Reason: Heparin Heparin Sodium (Porcine) (Heparin -) 5,000 unit IVPUSH PRN PRN PRN Reason: Heparin Hydromorphone HCl (Dilaudid Injection -) 1 mg IVPB Q4H PRN PRN Reason: PAIN Last Admin: 02/12/17 03:27 Dose: 1 mg Heparin Sodium (Porcine) 25, (000 unit/ Sodium Chloride) 500 mls @ 20 mls/hr IV TITR [facility]; 1,000 UNIT/HR PRN Reason: Protocol Last Admin: 02/12/17 08:55 Dose: 20 mls/hr Cefazolin Sodium/Dextrose (Ancef 2 Gm Premixed Ivpb -) 50 mls @ 100 mls/hr IVPB Q8H-IV [facility] Last Admin: 02/12/17 10:31 Dose: 100 mls/hr Lidocaine (Lidoderm Patch -) 1 patch TP DAILY [facility] Last Admin: 02/12/17 10:32 Dose: 1 patch Metoprolol Succinate (Toprol Xl -) 25 mg PO DAILY [facility] Last Admin: 02/12/17 10:31 Dose: 25 mg Miscellaneous (Lidoderm Patch Removal) 1 each MC DAILY@2200 [facility] Last Admin: 02/11/17 22:00 Dose: Not Given Montelukast Sodium (Singulair -) 10 mg PO HS [facility] Last Admin: 02/11/17 21:38 Dose: 10 mg Non-Formulary Medication (Fluticasone/Salmeterol [Advair Hfa 230-21 Mcg Inhaler] ) 1 inh PO BID [facility] Ondansetron HCl (Zofran Injection) 4 mg IVPB Q6H PRN PRN Reason: NAUSEA Oxycodone HCl (Roxicodone -) 5 mg PO Q4H PRN PRN Reason: PAIN Last Admin: 02/12/17 06:33 Dose: 5 mg Polyethylene Glycol (Miralax (For Daily Use) -) 17 gm PO DAILY [facility] Last Admin: 02/12/17 10:36 Dose: 17 gm Potassium Chloride (Potassium Chloride Oral Liquid) 40 meq PO ONCE ONE Stop: 02/12/17 10:25 Last Admin: 02/12/17 10:36 Dose: 40 meq Zolpidem Tartrate (Ambien -) 5 mg PO HS PRN Last Admin: 02/10/17 21:10 Dose: 5 mg - Objective Vital Signs: Vital Signs Temperature 97.9 F 02/12/17 06:30 Pulse Rate 135 H 02/12/17 06:30 Respiratory Rate 20 02/12/17 06:30 Blood Pressure 113/69 02/12/17 06:30 O2 Sat by Pulse Oximetry (%) 94 L 02/11/17 21:00 Constitutional: Yes: Anxious, Moderate Distress Eyes: Yes: Conjunctiva Clear Cardiovascular: Yes: Tachycardia, Pulse Irregular Respiratory: Yes: Diminished, Rales (left base > right base) Gastrointestinal: Yes: Soft, Abdomen, Obese Genitourinary: No: Bladder Distention Musculoskeletal: Yes: Back Pain Extremities: Yes: Other (Pain dorsum left foot but no redness or warmth noted.) . No: Cold Edema: LLE: Trace, RLE: Trace Wound/Incision: Yes: Other (some excoriations left buttock but I dont think they are blisters) Neurological: Yes: Alert, Oriented (slightly lethargic from IV Meds) Labs: CBC, BMP 02/12/17 06:00 02/12/17 06:00 INR, PTT INR 1.20 (0.82-1.09) H 02/12/17 06:00 - ....Imaging Chest X-ray: Report Reviewed Cat Scan: Report Reviewed Problem List - Problems (1) Atrial fibrillation with rapid ventricular response Assessment/Plan: Seen by Cardiology and on IV Heparin and Cardizem Echo noted. Code(s): I48.91 - UNSPECIFIED ATRIAL FIBRILLATION (2) Back pain Code(s): M54.9 - DORSALGIA, UNSPECIFIED Qualifiers: Back pain location: low back pain Chronicity: acute Back pain laterality: bilateral Sciatica presence: without sciatica Qualified Code(s): M54.5 - Low back pain (3) Sepsis Assessment/Plan: Blood C/S + for MSSA Seen by ID and on IV antibiotics Code(s): A41.9 - SEPSIS, UNSPECIFIED ORGANISM (4) ALBERTO (acute kidney injury) Assessment/Plan: Stable ; will follow Code(s): N17.9 - ACUTE KIDNEY FAILURE, UNSPECIFIED (5) Hypotension Assessment/Plan: Improved with IV fluids Code(s): I95.9 - HYPOTENSION, UNSPECIFIED Qualifiers: Hypotension type: unspecified hypotension type Qualified Code(s): I95.9 - Hypotension, unspecified (6) Lactic acidosis Code(s): E87.2 - ACIDOSIS (7) Sepsis associated hypotension Assessment/Plan: On IV antibiotics and IV fluid Code(s): A41.9 - SEPSIS, UNSPECIFIED ORGANISM (8) AAA (abdominal aortic aneurysm) without rupture Assessment/Plan: Will follow Code(s): I71.4 - ABDOMINAL AORTIC ANEURYSM, WITHOUT RUPTURE (9) Pain Assessment/Plan: On IV and oral opiods and gabapentin for neuropathic effects and Lidoderm. Will consult Pain MD for further advice. Code(s): R52 - PAIN, UNSPECIFIED
[2017-02-12] MEDS ORDERED: FUROSEMIDE 40 MG/4 ML INJECTABLE VIAL IVPUSH ONE ×2 (12:30→23:13)
--- NOTE | 2017-02-12 12:58 | PN ---
Progress Note (short form) - Note Progress Note: RENAL Pt is awake and alert has been weak and says he is dry Asked me to givehim water which I did Last Vital Signs Temp Pulse Resp BP Pulse Ox 97.9 F 135 H 20 113/69 94 L 02/12/17 06:30 02/12/17 06:30 02/12/17 06:30 02/12/17 06:30 02/11/17 21:00 lungs rhonchi cvs s1s2 tachycardic irreg abd soft ext +edema neuro a+ox3 skin has some erythema on left AC area and right arm CBC, BMP 02/12/17 06:00 02/12/17 06:00 Current Medications Generic Name Dose Route Start Last Admin Trade Name Freq PRN Reason Stop Dose Admin Acetaminophen 650 mg 02/10/17 15:43 02/12/17 06:33 Tylenol - PO 650 mg Q4H PRN Administration FEVER OR PAIN Albuterol/Ipratropium 1 amp 02/11/17 14:36 02/11/17 21:08 Duoneb - NEB 1 amp Q6H PRN Administration SHORTNESS OF BREATH Diltiazem HCl 10 mg 02/12/17 07:18 Cardizem Injection - IVPUSH Q4H PRN TACHYCARDIA Docusate Sodium 100 mg 02/10/17 22:00 02/12/17 10:31 Colace - PO 100 mg BID [facility] Administration Gabapentin 100 mg 02/11/17 08:00 02/12/17 06:09 Neurontin - PO 100 mg TID DOM[facility] Administration Heparin Sodium (Porcine) 5,000 unit 02/10/17 22:00 02/12/17 06:08 Heparin - SQ 5,000 unit TID [facility] Administration Heparin Sodium (Porcine) 1,000 unit 02/12/17 06:55 Heparin - IVPUSH PRN PRN Heparin Heparin Sodium (Porcine) 5,000 unit 02/12/17 06:55 Heparin - IVPUSH PRN PRN Heparin Hydromorphone HCl 1 mg 02/10/17 15:43 02/12/17 03:27 Dilaudid Injection - IVPB 1 mg Q4H PRN Administration PAIN Heparin Sodium (Porcine) 25, 500 mls @ 20 mls/hr 02/12/17 07:00 02/12/17 08:55 000 unit/ Sodium Chloride IV 20 mls/hr TITR DOMITIL[facility] Administration Protocol 1,000 UNIT/HR Cefazolin Sodium/Dextrose 50 mls @ 100 mls/hr 02/12/17 10:00 02/12/17 10:31 Ancef 2 Gm Premixed Ivpb - IVPB 100 mls/hr Q8H-IV [facility] Administration Lidocaine 1 patch 02/11/17 10:00 02/12/17 10:32 Lidoderm Patch - TP 1 patch DAILY [facility] Administration Metoprolol Succinate 25 mg 02/12/17 10:00 02/12/17 10:31 Toprol Xl - PO 25 mg DAILY [facility] Administration Miscellaneous 1 each 02/11/17 22:00 02/11/17 22:00 Lidoderm Patch Removal MC Not Given DAILY@2200 [facility] Montelukast Sodium 10 mg 02/10/17 22:00 02/11/17 21:38 Singulair - PO 10 mg HS [facility] Administration Non-Formulary Medication 1 inh 02/10/17 22:00 Fluticasone/Salmeterol [Advair Hfa 230-21 Mcg Inhaler] PO BID [facility] Ondansetron HCl 4 mg 02/10/17 15:43 Zofran Injection IVPB Q6H PRN NAUSEA Oxycodone HCl 5 mg 02/10/17 15:43 02/12/17 06:33 Roxicodone - PO 5 mg Q4H PRN Administration PAIN Polyethylene Glycol 17 gm 02/11/17 10:00 02/12/17 10:36 Miralax (For Daily Use) - PO 17 gm DAILY [facility] Administration Zolpidem Tartrate 5 mg 02/10/17 17:39 02/10/17 21:10 Ambien - PO 5 mg HS PRN Administration Impression 1. ALBERTO 2. lactic acidosis 3. hypotension 4. hx of HTN 5. asthma 6. back pain 7. r/o dissection 8. sepsis, MSSA 9. bacteremia 10 atrial fibrillation on heparin Plan monitor creatinine since he received contrast continue heparin and antibiotics replace k MV
[2017-02-12] MEDS: dilTIAZem HCL 50 MG/10 ML - 10 ML VIAL IVPUSH PRN ×2 (14:39→18:53)
[2017-02-12] MEDS ORDERED: PT OWN MED DRAWER 7, Y5N ONE (17:12)
[2017-02-12] MEDS: HEPARIN NA (PORCINE) 5,000 UNITS/ML 1ML VIAL IVPUSH PRN (17:21)
[2017-02-12] MEDS: MONTELUKAST NA 10 MG TABLET PO SCH (21:38)
[2017-02-12] MEDS: LIDOCAINE PATCH REMOVAL MC SCH (21:38)
[2017-02-12] MEDS ORDERED: METOPROLOL TARTRATE 25 MG TABLET (FP) PO ONE (22:48)
[2017-02-12] MEDS: METOPROLOL TARTRATE 5 MG/5 ML VIAL IVPUSH ONE ×2 (23:02→23:20)
--- NOTE | 2017-02-12 23:16 | HOSP ---
Subjective - Review of Symptoms Events since last encounter: Was called by nurse to assess a 76 year old male with pmh HTN, COPD of admitted for Sepsis with MRSA bacteremia, ALBERTO, new onset afib with RVR now with complaint of shortness and palpitation. Pt has AFIB on monitor with RVR heart rate 140's 150's , pt received Cardizem 10IV 2 hours ago which temprarily controlled the rate but now the rate is up again. In addition pt is having shortness of breath with tachypnea and hypoxemia with O2 sat in Mid 80's. Pt also have orthopnea. ON physical exam pt has trace edema lower ext and b/l lung crackles. Impression AFIB with RVR SOB with volume overload r/o CHF exacerbation and Pulmonary edema Plan Venti-mask EKg Cardiac profile BMP Mg Phos CXR Lopressor PO once Lasix IV 40mg once Metoprolol 5mg IV prn once Duoneb Inh Contact PCP and cardiology. Dr Galeano to follow up all labs, imaging and further care of the patient Pulmonary: Yes: Dyspnea Cardiovascular: Yes: Orthopnea Physical Examination Vital Signs: Vital Signs Temperature 97.9 F 02/12/17 20:35 Pulse Rate 130 H 02/12/17 20:35 Respiratory Rate 24 02/12/17 20:35 Blood Pressure 99/58 02/12/17 20:35 O2 Sat by Pulse Oximetry (%) 94 L 02/12/17 10:00 Constitutional: Yes: Anxious, Mild Distress HENT: Yes: Atraumatic Neck: Yes: Supple Cardiovascular: Yes: Regular Rate and Rhythm, Tachycardia, S1, S2, Varicosities Respiratory: Yes: On Venti-Mask, Orthopnea, Rales, SOB, Tachypnea Gastrointestinal: Yes: Normal Bowel Sounds, Soft, Abdomen, Obese Extremities: Yes: WNL Edema: Yes Edema: LLE: Trace, RLE: Trace Peripheral Pulses WNL: Yes Neurological: Yes: Alert, Oriented Psychiatric: Yes: Alert, Oriented Labs: CBC, BMP 02/12/17 06:00 02/12/17 06:00 Visit type - Emergency Visit Emergency Visit: Yes ED Registration Date: 02/10/17 Care time: The patient presented to the Emergency Department on the above date and was hospitalized for further evaluation of their emergent condition. - New Patient This patient is new to me today: Yes Date on this admission: 02/13/17 - Critical Care Critical Care patient: No
[2017-02-12] MEDS: METOPROLOL TARTRATE 25 MG TABLET (FP) PO ONE ×2 (23:21→23:58)
[2017-02-12] MEDS: ALBUTEROL SO4 2.5/IPRATROPIUM 0.5 INH SOL 3 ML VIAL.NEB. NEB PRN (23:30)
[2017-02-12] MEDS: METOPROLOL TARTRATE 5 MG/5 ML VIAL IVPUSH PRN (23:52)
[2017-02-13 00:32] LABS: ANION GAP 13 (8-16); CO2 23 mmol/L (21-32); COCKROFT - GAULT 50.15; CREATININE 1.6 mg/dL (0.7-1.3); GLUCOSE,RANDOM 83 mg/dL (74-106); MAGNESIUM 1.9 mg/dL (1.8-2.4); PHOSPHOROUS 2.4 mg/dL (2.5-4.9)
[2017-02-13 00:35] LABS: TROPONIN I < 0.02 ng/ml (0.00-0.05)
[2017-02-13] MEDS: HEPARIN NA (PORCINE) 5,000 UNITS/ML 1ML VIAL IVPUSH PRN (01:20)
[2017-02-13] MEDS: CEFAZOLIN 2 GM/D5W 50 ML IVPB SCH ×3 (01:21→17:03)
[2017-02-13] MEDS ORDERED: LEVOFLOXACIN 500 MG IVPB 100 ML IVPB ONE (02:30)
[2017-02-13] MEDS: POTASSIUM CHLORIDE TABS 20 MEQ TABLET.ER (FP) PO SCH ×2 (03:15→09:22)
[2017-02-13] MEDS: dilTIAZem HCL 50 MG/10 ML - 10 ML VIAL IVPUSH PRN ×3 (03:15→12:13)
[2017-02-13] MEDS: HYDROmorphone HCL CARPU-JECT 1 MG/1 ML DISP.SYRIN IVPB PRN ×4 (03:59→22:52)
[2017-02-13] MEDS: ACETAMINOPHEN 325 MG TABLET (FP) PO PRN ×2 (06:17→20:41)
[2017-02-13] MEDS: GABAPENTIN 100 MG CAPSULE (FP) PO SCH ×4 (06:17→22:05)
[2017-02-13] MEDS ORDERED: PT OWN MED DRAWER 7, Y5N ONE ×4 (07:02→16:54)
[2017-02-13] MEDS: HEPARIN - 25,000 UNIT in SODIUM CHLORIDE 495 ML IV SCH (07:04)
[2017-02-13] MEDS: LIDOCAINE 5% TOPICAL PATCH TP SCH (09:18)
[2017-02-13] MEDS: METOPROLOL SUCCINATE 25 MG TAB.SR.24H (FP) PO SCH (09:22)
[2017-02-13] MEDS: DOCUSATE SODIUM 100 MG CAPSULE (FP) PO SCH ×3 (09:22→22:05)
[2017-02-13] MEDS: POLYETHYLENE GLYCOL 3350 119 GM BTL PO SCH (09:40)
--- NOTE | 2017-02-13 10:21 | PN ---
Progress Note, Physician Chief Complaint: Severe pain left foot; also low back. History of Present Illness: Patient admitted with severe low back pain, left foot pain with some numbness there and hypotension after a grueling week of garden work and long distance travel. Also new onset A. Fib yesterday and seen by Cardiology. 4+ blood cultures for MSSA have been reported but the thought that it was an acute discitis or osteomyelitis of the spine are not confirmed by his LS MRI scan. Today he is mor SOB with congestion on his CXR possibly due to CHF and fluid load on admission. Also today the dorsum of his left foot is swollen, warm and very tender. ?? source of infection. Maybe CAT scan of foot and chest and Abd are indicated. Will add uric acid and call Pulmonary consult. - Current Medication List Current Medications: Active Medications Acetaminophen (Tylenol -) 650 mg PO Q4H PRN PRN Reason: FEVER OR PAIN Last Admin: 02/13/17 06:17 Dose: 650 mg Albuterol/Ipratropium (Duoneb -) 1 amp NEB Q6H PRN PRN Reason: SHORTNESS OF BREATH Last Admin: 02/12/17 23:30 Dose: 1 amp Alprazolam (Xanax -) 0.25 mg PO Q6H PRN Diltiazem HCl (Cardizem Injection -) 10 mg IVPUSH Q4H PRN PRN Reason: TACHYCARDIA Last Admin: 02/13/17 07:03 Dose: 10 mg Docusate Sodium (Colace -) 100 mg PO BID [facility] Last Admin: 02/13/17 09:22 Dose: 100 mg Gabapentin (Neurontin -) 100 mg PO TID [facility] Last Admin: 02/13/17 06:17 Dose: 100 mg Heparin Sodium (Porcine) (Heparin -) 1,000 unit IVPUSH PRN PRN PRN Reason: Heparin Last Admin: 02/13/17 01:20 Dose: 1,000 unit Heparin Sodium (Porcine) (Heparin -) 5,000 unit IVPUSH PRN PRN PRN Reason: Heparin Hydromorphone HCl (Dilaudid Injection -) 1 mg IVPB Q4H PRN PRN Reason: PAIN Last Admin: 02/13/17 03:59 Dose: 1 mg Heparin Sodium (Porcine) 25, (000 unit/ Sodium Chloride) 500 mls @ 20 mls/hr IV TITR [facility]IL[facility]; 1,000 UNIT/HR PRN Reason: Protocol Last Admin: 02/13/17 07:04 Dose: 24 mls/hr Cefazolin Sodium/Dextrose (Ancef 2 Gm Premixed Ivpb -) 50 mls @ 100 mls/hr IVPB Q8H-IV [facility] Last Admin: 02/13/17 09:19 Dose: 100 mls/hr Lidocaine (Lidoderm Patch -) 1 patch TP DAILY [facility] Last Admin: 02/13/17 09:18 Dose: 1 patch Metoprolol Succinate (Toprol Xl -) 25 mg PO DAILY [facility] Last Admin: 02/13/17 09:22 Dose: 25 mg Metoprolol Tartrate (Lopressor Injection -) 5 mg IVPUSH Q4H PRN Last Admin: 02/12/17 23:52 Dose: 5 mg Miscellaneous (Lidoderm Patch Removal) 1 each MC DAILY@2200 [facility] Last Admin: 02/12/17 21:38 Dose: 1 each Montelukast Sodium (Singulair -) 10 mg PO HS [facility] Last Admin: 02/12/17 21:38 Dose: 10 mg Non-Formulary Medication (Fluticasone/Salmeterol [Advair Hfa 230-21 Mcg Inhaler] ) 1 inh PO BID [facility] Ondansetron HCl (Zofran Injection) 4 mg IVPB Q6H PRN PRN Reason: NAUSEA Oxycodone HCl (Roxicodone -) 5 mg PO Q4H PRN PRN Reason: PAIN Last Admin: 02/12/17 23:02 Dose: 5 mg Polyethylene Glycol (Miralax (For Daily Use) -) 17 gm PO DAILY [facility] Last Admin: 02/13/17 09:40 Dose: 17 gm Potassium Chloride (K-Dur -) 20 meq PO DAILY [facility] Last Admin: 02/13/17 09:22 Dose: 20 meq Zolpidem Tartrate (Ambien -) 5 mg PO HS PRN Last Admin: 02/10/17 21:10 Dose: 5 mg - Objective Vital Signs: Vital Signs Temperature 98.1 F 02/13/17 06:23 Pulse Rate 116 H 02/13/17 06:23 Respiratory Rate 20 02/13/17 09:00 Blood Pressure 124/70 02/13/17 06:23 O2 Sat by Pulse Oximetry (%) 96 02/13/17 09:00 Constitutional: Yes: Moderate Distress Eyes: Yes: Conjunctiva Clear Cardiovascular: Yes: Tachycardia, Pulse Irregular Respiratory: Yes: Diminished, Rales (bases) Gastrointestinal: Yes: Soft, Abdomen, Obese Musculoskeletal: Yes: Other (Erythema, warmth swelling dorsum of left foot.) Edema: LLE: 1+, RLE: 1+ Peripheral Pulses: Right Femoral: 0 Neurological: Yes: Alert, Oriented Labs: CBC, BMP 02/12/17 06:00 02/12/17 23:45 INR, PTT INR 1.20 (0.82-1.09) H 02/12/17 06:00 Problem List - Problems (1) Atrial fibrillation with rapid ventricular response Assessment/Plan: On Heparin and Cardizem but still tachycardia Cardiology to revisit. Code(s): I48.91 - UNSPECIFIED ATRIAL FIBRILLATION (2) Back pain Assessment/Plan: Still in pain especially on turning. Code(s): M54.9 - DORSALGIA, UNSPECIFIED Qualifiers: Back pain location: low back pain Chronicity: acute Back pain laterality: bilateral Sciatica presence: without sciatica Qualified Code(s): M54.5 - Low back pain (3) Sepsis Assessment/Plan: 4 Blood C/S + MSSA ID MD has prescribed IV antibiotics Code(s): A41.9 - SEPSIS, UNSPECIFIED ORGANISM (4) ALBERTO (acute kidney injury) Assessment/Plan: Slightly higher lab today. will follow Code(s): N17.9 - ACUTE KIDNEY FAILURE, UNSPECIFIED (5) Hypotension Assessment/Plan: BP stable today. Code(s): I95.9 - HYPOTENSION, UNSPECIFIED Qualifiers: Hypotension type: unspecified hypotension type Qualified Code(s): I95.9 - Hypotension, unspecified (6) Lactic acidosis Code(s): E87.2 - ACIDOSIS (7) Sepsis associated hypotension Assessment/Plan: BP stable on on IV antibiotics. Code(s): A41.9 - SEPSIS, UNSPECIFIED ORGANISM (8) AAA (abdominal aortic aneurysm) without rupture Assessment/Plan: Noted on CTA from ER. Code(s): I71.4 - ABDOMINAL AORTIC ANEURYSM, WITHOUT RUPTURE (9) Pain Assessment/Plan: Rx ordered. Code(s): R52 - PAIN, UNSPECIFIED (10) Foot pain, left Assessment/Plan: Erythema and warmth and tender to touch. Code(s): M79.672 - PAIN IN LEFT FOOT
[2017-02-13] MEDS: ALBUTEROL SO4 2.5/IPRATROPIUM 0.5 INH SOL 3 ML VIAL.NEB. NEB PRN (10:51)
--- NOTE | 2017-02-13 11:10 | PN ---
Progress Note, Physician Chief Complaint: ID Remains tachypneic ill appearing SOB Cefazolin now MSSA Repeat blood cultures positive - Current Medication List Current Medications: Active Medications Acetaminophen (Tylenol -) 650 mg PO Q4H PRN PRN Reason: FEVER OR PAIN Last Admin: 02/13/17 06:17 Dose: 650 mg Albuterol/Ipratropium (Duoneb -) 1 amp NEB Q6H PRN PRN Reason: SHORTNESS OF BREATH Last Admin: 02/13/17 10:51 Dose: 1 amp Alprazolam (Xanax -) 0.25 mg PO Q6H PRN Diltiazem HCl (Cardizem Injection -) 10 mg IVPUSH Q4H PRN PRN Reason: TACHYCARDIA Last Admin: 02/13/17 07:03 Dose: 10 mg Docusate Sodium (Colace -) 100 mg PO BID DOMITILA Last Admin: 02/13/17 09:22 Dose: 100 mg Gabapentin (Neurontin -) 100 mg PO TID DOMITILA Last Admin: 02/13/17 06:17 Dose: 100 mg Heparin Sodium (Porcine) (Heparin -) 1,000 unit IVPUSH PRN PRN PRN Reason: Heparin Last Admin: 02/13/17 01:20 Dose: 1,000 unit Heparin Sodium (Porcine) (Heparin -) 5,000 unit IVPUSH PRN PRN PRN Reason: Heparin Hydromorphone HCl (Dilaudid Injection -) 1 mg IVPB Q4H PRN PRN Reason: PAIN Last Admin: 02/13/17 03:59 Dose: 1 mg Heparin Sodium (Porcine) 25, (000 unit/ Sodium Chloride) 500 mls @ 20 mls/hr IV TITR DOMITILA; 1,000 UNIT/HR PRN Reason: Protocol Last Admin: 02/13/17 07:04 Dose: 24 mls/hr Cefazolin Sodium/Dextrose (Ancef 2 Gm Premixed Ivpb -) 50 mls @ 100 mls/hr IVPB Q8H-IV DOMITILA Last Admin: 02/13/17 09:19 Dose: 100 mls/hr Lidocaine (Lidoderm Patch -) 1 patch TP DAILY [facility] Last Admin: 02/13/17 09:18 Dose: 1 patch Metoprolol Succinate (Toprol Xl -) 25 mg PO DAILY DOMITILA Last Admin: 05/28/17 09:22 Dose: 25 mg Metoprolol Tartrate (Lopressor Injection -) 5 mg IVPUSH Q4H PRN Last Admin: 02/12/17 23:52 Dose: 5 mg Miscellaneous (Lidoderm Patch Removal) 1 each MC DAILY@2200 [facility] Last Admin: 02/12/17 21:38 Dose: 1 each Montelukast Sodium (Singulair -) 10 mg PO HS [facility] Last Admin: 02/12/17 21:38 Dose: 10 mg Non-Formulary Medication (Fluticasone/Salmeterol [Advair Hfa 230-21 Mcg Inhaler] ) 1 inh PO BID [facility] Ondansetron HCl (Zofran Injection) 4 mg IVPB Q6H PRN PRN Reason: NAUSEA Oxycodone HCl (Roxicodone -) 5 mg PO Q4H PRN PRN Reason: PAIN Last Admin: 02/12/17 23:02 Dose: 5 mg Polyethylene Glycol (Miralax (For Daily Use) -) 17 gm PO DAILY [facility] Last Admin: 02/13/17 09:40 Dose: 17 gm Potassium Chloride (K-Dur -) 20 meq PO DAILY [facility] Last Admin: 02/13/17 09:22 Dose: 20 meq Zolpidem Tartrate (Ambien -) 5 mg PO HS PRN Last Admin: 02/10/17 21:10 Dose: 5 mg - Objective Vital Signs: Vital Signs Temperature 98.1 F 02/13/17 06:23 Pulse Rate 116 H 02/13/17 06:23 Respiratory Rate 20 02/13/17 09:00 Blood Pressure 124/70 02/13/17 06:23 O2 Sat by Pulse Oximetry (%) 96 02/13/17 09:00 Constitutional: Yes: Moderate Distress Neck: Yes: WNL, Supple Cardiovascular: Yes: S1, S2. No: Murmur Respiratory: Yes: WNL, Regular, CTA Bilaterally. No: Rales Gastrointestinal: Yes: Soft. No: Tenderness Extremities: Yes: Erythema, Other (Left foot erythema dorsum) Labs: CBC, BMP 02/12/17 06:00 02/12/17 23:45 INR, PTT INR 1.20 (0.82-1.09) H 02/12/17 06:00 Assessment/Plan Laboratory Tests 02/10/17 02/11/17 02/12/17 18:40 09:55 06:00 WBC 7.0 Hgb 13.4 Plt Count 55 L D ESR BUN C-Reactive Protein 30.9 H Ur Leukocyte Esterase 3+ H Urine RBC 4 Urine WBC 24 02/12/17 02/12/17 06:00 23:45 WBC Hgb Plt Count ESR 75 H BUN 39 H C-Reactive Protein Ur Leukocyte Esterase Urine RBC Urine WBC Assessment Looks acutely ill. Good news is no evidence for spinal osteomyelitis. However remains bacteremic with possible psoas muscle involvement. He could still have endocarditis. May have hematogenous cellulitis of the left foot. Gout considered Plan Discussed with Dr Galeano and family CT abd look for psoas muscle abscess and CT lung to look for septic pulmonary emboli Continue Cefazolin Blood culture again tomorrow FABIOLA Is patient developing heart failure ?? Krupa LOPEZ
--- NOTE | 2017-02-13 12:07 | PN ---
Progress Note, Physician History of Present Illness: Continued back pain, LS spine negative for spinal osteo or diskitis, but concern for psoas phlegmon. Remains in rapid afib with dyspnea and hypoxia, CXR shows new congestion and pleural effusions. - Current Medication List Current Medications: Active Medications Acetaminophen (Tylenol -) 650 mg PO Q4H PRN PRN Reason: FEVER OR PAIN Last Admin: 02/13/17 06:17 Dose: 650 mg Albuterol/Ipratropium (Duoneb -) 1 amp NEB Q6H PRN PRN Reason: SHORTNESS OF BREATH Last Admin: 02/13/17 10:51 Dose: 1 amp Alprazolam (Xanax -) 0.25 mg PO Q6H PRN Diltiazem HCl (Cardizem Injection -) 10 mg IVPUSH Q4H PRN PRN Reason: TACHYCARDIA Last Admin: 02/13/17 07:03 Dose: 10 mg Docusate Sodium (Colace -) 100 mg PO BID DOMITILA Last Admin: 02/13/17 09:22 Dose: 100 mg Gabapentin (Neurontin -) 100 mg PO TID DOMITILA Last Admin: 02/13/17 06:17 Dose: 100 mg Heparin Sodium (Porcine) (Heparin -) 1,000 unit IVPUSH PRN PRN PRN Reason: Heparin Last Admin: 02/13/17 01:20 Dose: 1,000 unit Heparin Sodium (Porcine) (Heparin -) 5,000 unit IVPUSH PRN PRN PRN Reason: Heparin Hydromorphone HCl (Dilaudid Injection -) 1 mg IVPB Q4H PRN PRN Reason: PAIN Last Admin: 02/13/17 03:59 Dose: 1 mg Heparin Sodium (Porcine) 25, (000 unit/ Sodium Chloride) 500 mls @ 20 mls/hr IV TITR DOMITILA; 1,000 UNIT/HR PRN Reason: Protocol Last Admin: 02/13/17 07:04 Dose: 24 mls/hr Cefazolin Sodium/Dextrose (Ancef 2 Gm Premixed Ivpb -) 50 mls @ 100 mls/hr IVPB Q8H-IV DOMITILA Last Admin: 02/13/17 09:19 Dose: 100 mls/hr Lidocaine (Lidoderm Patch -) 1 patch TP DAILY DOMITILA Last Admin: 02/13/17 09:18 Dose: 1 patch Metoprolol Succinate (Toprol Xl -) 25 mg PO DAILY [facility] Last Admin: 02/13/17 09:22 Dose: 25 mg Metoprolol Tartrate (Lopressor Injection -) 5 mg IVPUSH Q4H PRN Last Admin: 02/12/17 23:52 Dose: 5 mg Miscellaneous (Lidoderm Patch Removal) 1 each MC DAILY@2200 [facility] Last Admin: 02/12/17 21:38 Dose: 1 each Montelukast Sodium (Singulair -) 10 mg PO HS [facility] Last Admin: 02/12/17 21:38 Dose: 10 mg Non-Formulary Medication (Fluticasone/Salmeterol [Advair Hfa 230-21 Mcg Inhaler] ) 1 inh PO BID [facility] Ondansetron HCl (Zofran Injection) 4 mg IVPB Q6H PRN PRN Reason: NAUSEA Oxycodone HCl (Roxicodone -) 5 mg PO Q4H PRN PRN Reason: PAIN Last Admin: 02/12/17 23:02 Dose: 5 mg Polyethylene Glycol (Miralax (For Daily Use) -) 17 gm PO DAILY [facility] Last Admin: 02/13/17 09:40 Dose: 17 gm Potassium Chloride (K-Dur -) 20 meq PO DAILY [facility] Last Admin: 02/13/17 09:22 Dose: 20 meq Zolpidem Tartrate (Ambien -) 5 mg PO HS PRN Last Admin: 02/10/17 21:10 Dose: 5 mg - Objective Vital Signs: Vital Signs Temperature 98.4 F 02/13/17 10:00 Pulse Rate 128 H 02/13/17 10:00 Respiratory Rate 20 02/13/17 10:00 Blood Pressure 142/74 02/13/17 10:00 O2 Sat by Pulse Oximetry (%) 96 02/13/17 09:00 Constitutional: Yes: No Distress, Calm Cardiovascular: Yes: Tachycardia, Pulse Irregular Respiratory: Yes: Regular, Diminished, On Nasal O2 Gastrointestinal: Yes: Normal Bowel Sounds, Soft Edema: No Labs: CBC, BMP 02/12/17 06:00 02/12/17 23:45 INR, PTT INR 1.20 (0.82-1.09) H 02/12/17 06:00 - ....Imaging Chest X-ray: Report Reviewed (CHF) Problem List - Problems (1) ALBERTO (acute kidney injury) Code(s): N17.9 - ACUTE KIDNEY FAILURE, UNSPECIFIED (2) Lactic acidosis Code(s): E87.2 - ACIDOSIS (3) Sepsis associated hypotension Code(s): A41.9 - SEPSIS, UNSPECIFIED ORGANISM (4) MSSA (methicillin susceptible Staphylococcus aureus) septicemia Code(s): A41.01 - SEPSIS DUE TO METHICILLIN SUSCEPTIBLE STAPHYLOCOCCUS AUREUS (5) Paroxysmal atrial fibrillation with RVR Code(s): I48.0 - PAROXYSMAL ATRIAL FIBRILLATION (6) Thrombocytopenia Code(s): D69.6 - THROMBOCYTOPENIA, UNSPECIFIED (7) Hypokalemia Code(s): E87.6 - HYPOKALEMIA (8) Back pain Code(s): M54.9 - DORSALGIA, UNSPECIFIED Qualifiers: Back pain location: low back pain Chronicity: acute Back pain laterality: bilateral Sciatica presence: without sciatica Qualified Code(s): M54.5 - Low back pain (9) Thoracic aortic aneurysm without rupture Code(s): I71.2 - THORACIC AORTIC ANEURYSM, WITHOUT RUPTURE Assessment/Plan 02/11/2017 Echo: Mildly decreased LV fxn with mild-mod anterior, anteroseptal HK with mild RV dysfunction, mild MR, TR, AR, DC, mildly dilated ascending aortic root 1. Persistent MSSA bacteremia with possible endocarditis, possible psoas abscess 2. Paroxysmal atrial fibrillation with RVR [id number] with possible left foot thromboembolism vs septic emboli 3. ALBERTO and lactic acidosis due to hemodynamic alterations 4. 4.1 cm TAA 5. Thrombocytopenia due to sepsis 6. Acute on chronic diastolic failure 7. Possible gout vs septic emboli to left foot P:1. Cardizem and Lopressor as hemodynamics tolerate for rate-control, hep gtt with caution given thrombocytropenia 2. Replete K, analgesia as needed, f/u surveillance bld cx, Ancef per sensitivities 3. May be candidate for FABIOLA if persistently bacteremic despite appropriate abx course 4. F/u CT abd look for psoas muscle abscess and CT lung to look for septic pulmonary emboli 5. Lasix 40 mg IV x 1 now and monitor diuretic response, renal fxn and electrolytes
--- NOTE | 2017-02-13 12:07 | PN ---
Progress Note (short form) - Note Progress Note: RENAL Pt is awake and alert has been very uncomfortable has back and left dorsum of foot pain Last Vital Signs Temp Pulse Resp BP Pulse Ox 98.4 F 128 H 20 142/74 96 02/13/17 10:00 02/13/17 10:00 02/13/17 10:00 02/13/17 10:00 02/13/17 09:00 lungs rhonchi cvs s1s2 tachycardic irreg abd soft ext +edema, left foot is tender and swolllen over left first tarsal metatarsal joint neuro a+ox3 skin has some erythema on left AC area and right arm CBC, BMP 02/12/17 06:00 02/12/17 23:45 Current Medications Generic Name Dose Route Start Last Admin Trade Name Freq PRN Reason Stop Dose Admin Acetaminophen 650 mg 02/10/17 15:43 02/13/17 06:17 Tylenol - PO 650 mg Q4H PRN Administration FEVER OR PAIN Albuterol/Ipratropium 1 amp 02/11/17 14:36 02/13/17 10:51 Duoneb - NEB 1 amp Q6H PRN Administration SHORTNESS OF BREATH Alprazolam 0.25 mg 02/13/17 02:25 Xanax - PO Q6H PRN Diltiazem HCl 10 mg 02/12/17 07:18 02/13/17 07:03 Cardizem Injection - IVPUSH 10 mg Q4H PRN Administration TACHYCARDIA Docusate Sodium 100 mg 02/10/17 22:00 02/13/17 09:22 Colace - PO 100 mg BID DOMITILA Administration Gabapentin 100 mg 02/11/17 08:00 02/13/17 06:17 Neurontin - PO 100 mg TID DOMITILA Administration Heparin Sodium (Porcine) 1,000 unit 02/12/17 06:55 02/13/17 01:20 Heparin - IVPUSH 1,000 unit PRN PRN Administration Heparin Heparin Sodium (Porcine) 5,000 unit 02/12/17 06:55 Heparin - IVPUSH PRN PRN Heparin Hydromorphone HCl 1 mg 02/10/17 15:43 02/13/17 03:59 Dilaudid Injection - IVPB 1 mg Q4H PRN Administration PAIN Heparin Sodium (Porcine) 25, 500 mls @ 20 mls/hr 02/12/17 07:00 02/13/17 07:04 000 unit/ Sodium Chloride IV 24 mls/hr TITR DOMITILA Administration Protocol 1,000 UNIT/HR Cefazolin Sodium/Dextrose 50 mls @ 100 mls/hr 02/12/17 10:00 02/13/17 09:19 Ancef 2 Gm Premixed Ivpb - IVPB 100 mls/hr Q8H-IV DOMITILA Administration Lidocaine 1 patch 02/11/17 10:00 02/13/17 09:18 Lidoderm Patch - TP 1 patch DAILY DOMITILA Administration Metoprolol Succinate 25 mg 02/12/17 10:00 02/13/17 09:22 Toprol Xl - PO 25 mg DAILY DOMITILA Administration Metoprolol Tartrate 5 mg 02/12/17 23:16 02/12/17 23:52 Lopressor Injection - IVPUSH 5 mg Q4H PRN Administration Miscellaneous 1 each 02/11/17 22:00 02/12/17 21:38 Lidoderm Patch Removal MC 1 each DAILY@2200 DOMITILA Administration Montelukast Sodium 10 mg 02/10/17 22:00 02/12/17 21:38 Singulair - PO 10 mg HS DOMITILA Administration Non-Formulary Medication 1 inh 02/10/17 22:00 Fluticasone/Salmeterol [Advair Hfa 230-21 Mcg Inhaler] PO BID DOMITILA Ondansetron HCl 4 mg 02/10/17 15:43 Zofran Injection IVPB Q6H PRN NAUSEA Oxycodone HCl 5 mg 02/10/17 15:43 02/12/17 23:02 Roxicodone - PO 5 mg Q4H PRN Administration PAIN Polyethylene Glycol 17 gm 02/11/17 10:00 02/13/17 09:40 Miralax (For Daily Use) - PO 17 gm DAILY DOMITILA Administration Potassium Chloride 20 meq 02/13/17 02:30 02/13/17 09:22 K-Dur - PO 20 meq DAILY DOMITILA Administration Zolpidem Tartrate 5 mg 02/10/17 17:39 02/10/17 21:10 Ambien - PO 5 mg HS PRN Administration Impression 1. ALBERTO- r/o urine retention. Had a bladder scan that showed 145 cc of urine. May also be due to contrast 2. lactic acidosis 3. hypotension 4. hx of HTN 5. asthma 6. back pain 7. r/o dissection 8. sepsis, MSSA 9. bacteremia 10 atrial fibrillation on heparin 11 r/o gout Plan monitor creatinine since he received contrast continue heparin and antibiotics replace k uric acid level insert guzmán for 24 hours r/o endocarditis MV
[2017-02-13] MEDS ORDERED: FUROSEMIDE 40 MG/4 ML INJECTABLE VIAL ONE (12:26)
[2017-02-13] MEDS ORDERED: dilTIAZem HCL 30 MG TABLET (FP) ONE (12:26)
[2017-02-13 12:35] LABS: CALCIUM 8.1 mg/dL (8.5-10.1); COCKROFT - GAULT 47.2; CREATININE 1.7 mg/dL (0.7-1.3)
[2017-02-13] MEDS ORDERED: dilTIAZem HCL 50 MG/10 ML - 10 ML VIAL IVPUSH ONE (13:00)
[2017-02-13] MEDS ORDERED: FUROSEMIDE 40 MG/4 ML INJECTABLE VIAL IVPB ONE (13:00)
[2017-02-13] MEDS ORDERED: dilTIAZem HCL 30 MG TABLET (FP) PO ONE (13:00)
[2017-02-13 15:27] LABS: MCH 33.3 pg (25.7-33.7); MEAN PLT VOLUME 10.2 fl (7.5-11.1); PLATELET COUNT 63 K/MM3 (134-434); RDW 14.5 % (11.9-15.9); WHITE BLOOD COUNT 13.7 K/mm3 (4.0-10.0)
[2017-02-13 15:55] LABS: DOHLE BODIES 1+; PLATELET ESTIMATE DECREASED (NORMAL); TOXIC GRANULATION 1+
--- NOTE | 2017-02-13 16:03 | CON.PULM ---
Consult Consult Specialty:: PULM/CCM Referred by:: ISAAC Reason for Consultation:: Abnormal CXR - History of Present Illness Chief Complaint: low BP/ SOB/ leg swelling History of Present Illness: 76 M, HTN and a known history of a 4.1 cm TAA. Sent from an urgent care center due to Sepsis like symptoms. Patient noted to have persistently (+) blood cultures for MSSA. No travel history or sick contacts. Called for SOB requiring the use of VM O2 overnight. He is currently awake and alert and mildly tachypneic on 4 L NC O2 saturating 96%. He does report some dry cough. No hemoptysis. He reports back pain along the spine that has gotten worse. He will be going for further CT evaluation. - History Source History Provided By: Patient Limitations to Obtaining History: No Limitations - Past Medical History Cardio/Vascular: Yes: HTN Pulmonary: Yes: COPD - Past Surgical History Past Surgical History: Yes: Hernia Repair - Alcohol/Substance Use Hx Alcohol Use: No History of Substance Use: reports: None - Smoking History Smoking history: Never smoked - Social History ADL: Independent History of Recent Travel: Yes (as above) Home Medications - Allergies Allergies/Adverse Reactions: Allergies Allergy/AdvReac Type Severity Reaction Status Date / Time aloe Allergy Verified 02/10/17 22:58 aloe vera Allergy Verified 02/10/17 22:58 - Home Medications Home Medications: Ambulatory Orders Atenolol [Tenormin -] 50 mg PO DAILY 02/10/17 Diltiazem HCl [Diltiazem 24Hr Cd] 300 mg PO DAILY 02/10/17 Fluticasone/Salmeterol [Advair Hfa 230-21 Mcg Inhaler] 1 inh PO BID 02/10/17 Losartan/Hydrochlorothiazide [Hyzaar 50-12.5 Tablet] 2 each PO BID 02/10/17 Montelukast Na [Singulair -] 10 mg PO DAILY 02/10/17 Review of Systems - Review of Systems Constitutional: reports: Chills, Fever, Lethargy, Malaise, Weakness. denies: Night Sweats, Unintentional Wgt. Loss Eyes: reports: No Symptoms HENT: reports: No Symptoms Neck: reports: No Symptoms Cardiovascular: reports: Edema, Palpitations, Shortness of Breath. denies: Chest Pain Respiratory: reports: Cough, Orthopnea, Snoring, SOB, SOB on Exertion. denies: Hemoptysis, Wheezing Gastrointestinal: reports: No Symptoms Genitourinary: reports: No Symptoms Musculoskeletal: reports: Back Pain, Extremity Pain, Joint Swelling, Muscle Cramps Integumentary: reports: Bruising, Change in Color, Rash Neurological: reports: No Symptoms Endocrine: reports: No Symptoms Hematology/Lymphatic: reports: No Symptoms Psychiatric: reports: No Symptoms Physical Exam Vital Sings: Vital Signs Temperature 98.4 F 02/13/17 10:00 Pulse Rate 104 H 02/13/17 13:34 Respiratory Rate 20 02/13/17 13:34 Blood Pressure 113/67 02/13/17 13:34 O2 Sat by Pulse Oximetry (%) 96 02/13/17 09:00 Constitutional: Yes: Mild Distress Eyes: Yes: Conjunctiva Clear, EOM Intact HENT: Yes: Atraumatic, Normocephalic Neck: Yes: Supple, Trachea Midline Cardiovascular: Yes: Pulse Irregular Respiratory: Yes: Cough, Diminished, On Nasal O2, Rhonchi, Tachypnea. No: Accessory Muscle Use, Rales, Stridor, Wheezes ...Inspection: Yes: WNL ...Clubbing: No Gastrointestinal: Yes: Normal Bowel Sounds, Soft Musculoskeletal: Yes: Back Pain Extremities: Yes: Erythema. No: Cold, Cyanosis Edema: Yes Peripheral Pulses WNL: Yes Integumentary: Yes: Bruising, Erythema, Venous Stasis Changes Neurological: Yes: WNL, Alert, Oriented ...Motor Strength: WNL Psychiatric: Yes: WNL, Alert, Oriented Labs: CBC, BMP 02/13/17 15:20 02/13/17 12:15 Imaging - Results Chest X-ray: Report Reviewed, Image Reviewed Cat Scan: Report Reviewed, Image Reviewed Problem List - Problems (1) AAA (abdominal aortic aneurysm) without rupture Code(s): I71.4 - ABDOMINAL AORTIC ANEURYSM, WITHOUT RUPTURE (2) ALBERTO (acute kidney injury) Code(s): N17.9 - ACUTE KIDNEY FAILURE, UNSPECIFIED (3) Atrial fibrillation with rapid ventricular response Code(s): I48.91 - UNSPECIFIED ATRIAL FIBRILLATION (4) Back pain Code(s): M54.9 - DORSALGIA, UNSPECIFIED Qualifiers: Back pain location: low back pain Chronicity: acute Back pain laterality: bilateral Sciatica presence: without sciatica Qualified Code(s): M54.5 - Low back pain (5) Foot pain, left Code(s): M79.672 - PAIN IN LEFT FOOT (6) Hypotension Code(s): I95.9 - HYPOTENSION, UNSPECIFIED Qualifiers: Hypotension type: unspecified hypotension type Qualified Code(s): I95.9 - Hypotension, unspecified (7) MSSA (methicillin susceptible Staphylococcus aureus) septicemia Code(s): A41.01 - SEPSIS DUE TO METHICILLIN SUSCEPTIBLE STAPHYLOCOCCUS AUREUS (8) Paroxysmal atrial fibrillation with RVR Code(s): I48.0 - PAROXYSMAL ATRIAL FIBRILLATION (9) Sepsis Code(s): A41.9 - SEPSIS, UNSPECIFIED ORGANISM (10) Thoracic aortic aneurysm without rupture Code(s): I71.2 - THORACIC AORTIC ANEURYSM, WITHOUT RUPTURE Assessment/Plan For CT evaluation Need to exclude endocarditis O2 as needed ABX Per ID AC with IV Heparin Strict I&O BD TX If any worsening of his condition -> will move to a higher level of monitoring. Will follow closely Thank you. Dr Montoya
--- NOTE | 2017-02-13 16:08 | PN ---
Progress Note (short form) - Note Progress Note: NEUROSURGERY Some LBP MSSA on blood culture x4 PE: AF, VSS HEENT- NC/AT; Neck- supple; Cor- RR; Lungs- no wheezes; Abd- obese, benign; Ext - No sign of DVT CN- intact; Motor- 5/5 except L IP 4, L Quad/EHL/TA/gastroc/inv/ev 4-; Sensation - diminished PP/LT L L4-5; DTR- hyporeflexic B Back- tender L > R LS junction CT abd- atelectasis B lung bases, mild dilatation of abd aorta; ? 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
[2017-02-13] MEDS ORDERED: POTASSIUM CHLORIDE TABS 20 MEQ TABLET.ER (FP) PO ONE (16:56)
--- NOTE | 2017-02-13 19:04 | CONSULT ---
Consult Consult Specialty:: Hematology Reason for Consultation:: Thrombocytopenia - History of Present Illness Chief Complaint: Patient previously well, presented 3 days ago with back pain and malaise, found to be hypotensive and pre-renal, with MSSA bacteremia, started on Abics. Yesterday found to be in rapid AF, started on heparin gtt. Present consult for thrombocytopenia, progressive over last 3 days. Patient denies any prior hematological issues. No stigmata of bleeding reported. - History Source History Provided By: Patient, Medical Record Limitations to Obtaining History: No Limitations - Past Medical History Cardio/Vascular: Yes: HTN Pulmonary: Yes: COPD - Past Surgical History Past Surgical History: Yes: Hernia Repair - Alcohol/Substance Use Hx Alcohol Use: No History of Substance Use: reports: None - Smoking History Smoking history: Never smoked - Social History ADL: Independent History of Recent Travel: Yes (as above) Home Medications - Allergies Allergies/Adverse Reactions: Allergies Allergy/AdvReac Type Severity Reaction Status Date / Time aloe Allergy Verified 02/10/17 22:58 aloe vera Allergy Verified 02/10/17 22:58 - Home Medications Home Medications: Ambulatory Orders Atenolol [Tenormin -] 50 mg PO DAILY 02/10/17 Diltiazem HCl [Diltiazem 24Hr Cd] 300 mg PO DAILY 02/10/17 Fluticasone/Salmeterol [Advair Hfa 230-21 Mcg Inhaler] 1 inh PO BID 02/10/17 Losartan/Hydrochlorothiazide [Hyzaar 50-12.5 Tablet] 2 each PO BID 02/10/17 Montelukast Na [Singulair -] 10 mg PO DAILY 02/10/17 Physical Exam Vital Signs: Vital Signs Temperature 98.4 F 02/13/17 18:13 Pulse Rate 105 H 02/13/17 18:13 Respiratory Rate 18 02/13/17 18:13 Blood Pressure 117/78 02/13/17 18:13 O2 Sat by Pulse Oximetry (%) 96 02/13/17 09:00 Constitutional: Yes: Well Nourished, Anxious Eyes: Yes: Conjunctiva Clear. No: Sclera Icterus HENT: Yes: Normocephalic Neck: Yes: Supple, Trachea Midline Cardiovascular: Yes: S1, S2. No: Murmur Respiratory: Yes: Regular, CTA Bilaterally Gastrointestinal: Yes: Normal Bowel Sounds, Soft. No: Hepatomegaly Edema: No Neurological: Yes: Alert, Oriented Psychiatric: Yes: Alert, Oriented Labs: CBC, BMP 02/13/17 15:20 02/13/17 12:15 Assessment/Plan Progressive thrombocytopenia over last 3 hospital days likely attributable to sepsis, with documented MSSA bacteremia, possible endocarditis. Today platelet count improved. Pattern of platelet fall precludes HIT. Reasonable to continue anticoagulation with heparin gtt while platelet count > 50K. Would expect ongoing improvement in platelet count with successful treatment of sepsis. Call with questions - will follow with you.
[2017-02-13] MEDS: oxyCODONE HCL 5 MG TABLET PO PRN (20:40)
[2017-02-13] MEDS: MONTELUKAST NA 10 MG TABLET PO SCH ×2 (20:42→22:05)
[2017-02-13] MEDS: METOPROLOL TARTRATE 25 MG TABLET (FP) PO SCH ×2 (20:45→22:05)
[2017-02-13] MEDS: LIDOCAINE PATCH REMOVAL MC SCH (22:53)
[2017-02-13] MEDS: ALPRAZolam 0.25 MG TABLET PO PRN (23:17)
[2017-02-14] MEDS ORDERED: PT OWN MED DRAWER 7, Y5N ONE ×3 (02:05→16:34)
[2017-02-14] MEDS: CEFAZOLIN 2 GM/D5W 50 ML IVPB SCH ×3 (02:17→17:21)
[2017-02-14] MEDS: HYDROmorphone HCL CARPU-JECT 1 MG/1 ML DISP.SYRIN IVPB PRN ×3 (03:32→18:20)
[2017-02-14] MEDS: GABAPENTIN 100 MG CAPSULE (FP) PO SCH ×3 (06:37→21:45)
[2017-02-14] MEDS: oxyCODONE HCL 5 MG TABLET PO PRN ×2 (06:37→21:44)
[2017-02-14] MEDS: ACETAMINOPHEN 325 MG TABLET (FP) PO PRN (06:38)
[2017-02-14 07:16] LABS: MCHC 33.8 g/dl (32.0-35.9); MEAN CELL VOLUME 100.4 fl (80-96); MEAN PLT VOLUME 9.3 fl (7.5-11.1); PLATELET COUNT 67 K/MM3 (134-434); RDW 14.5 % (11.9-15.9); WHITE BLOOD COUNT 16.1 K/mm3 (4.0-10.0)
[2017-02-14 07:22] LABS: MCHC 33.7 g/dl (32.0-35.9); MEAN CELL VOLUME 100.8 fl (80-96); MEAN PLT VOLUME 9.6 fl (7.5-11.1); PLATELET COUNT 67 K/MM3 (134-434); RDW 14.6 % (11.9-15.9); WHITE BLOOD COUNT 17.1 K/mm3 (4.0-10.0)
[2017-02-14 07:34] LABS: ALBUMIN 1.8 g/dl (3.4-5.0); CALCIUM 8.6 mg/dL (8.5-10.1); MAGNESIUM 1.9 mg/dL (1.8-2.4)
[2017-02-14 07:37] LABS: BILIRUBIN,TOTAL 0.5 mg/dL (0.2-1.0); COCKROFT - GAULT 53.49; CREATININE 1.5 mg/dL (0.7-1.3); TOT PROT 5.4 g/dl (6.4-8.2)
[2017-02-14] MEDS: HEPARIN - 25,000 UNIT in SODIUM CHLORIDE 495 ML IV SCH (08:39)
[2017-02-14 09:10] LABS: URIC ACID 6.7 mg/dL (2.6-7.2)
--- NOTE | 2017-02-14 09:35 | PN ---
Progress Note (short form) - Note Progress Note: NEUROSURGERY Some LBP but better today MSSA on blood culture x4 as of 02-12 specimen PE: Tmax 99.2, AF, VSS HEENT- NC/AT; Neck- supple; Cor- RR; Lungs- no wheezes; Abd- obese, benign; Ext - No sign of DVT CN- intact; Motor- 5/5 except L IP 4, L Quad/EHL/TA/gastroc/inv/ev 4-; Sensation - diminished PP/LT L L4-5; DTR- hyporeflexic B MRI- L4-5 grade I spondylolisthesis with facet hypertrophy and moderate canal stenosis and moderate-marked foramenal stenosis; L4-5 disc T2 hyperinstensity; mild L4-5 facet joint effusion/hypertrophy; severe L5-S1 DDD; mild psoas edema B WBC 16.1, platelet 67k; Cr 1.5 L4-5 spondylolisthesis with stenosis and mechanical LBP and L L4-5 radiculopathy Renal insufficiency MSSA bacteremia with possible L4-5 discitis senior care iv abx assuming it is MSSA discitis/psoas inflammation as well Hematology input noted D/W ID yesterday Care d/w family at bedside
[2017-02-14] MEDS: DOCUSATE SODIUM 100 MG CAPSULE (FP) PO SCH ×2 (09:40→21:44)
[2017-02-14] MEDS: LIDOCAINE 5% TOPICAL PATCH TP SCH (09:41)
[2017-02-14] MEDS: METOPROLOL TARTRATE 25 MG TABLET (FP) PO SCH (09:41)
[2017-02-14] MEDS: POTASSIUM CHLORIDE TABS 20 MEQ TABLET.ER (FP) PO SCH (09:41)
[2017-02-14] MEDS: POLYETHYLENE GLYCOL 3350 119 GM BTL PO SCH ×2 (09:42→21:45)
--- NOTE | 2017-02-14 10:25 | EKG ---
Test Reason : Blood Pressure : / mmHG Vent. Rate : 142 BPM Atrial Rate : 156 BPM P-R Int : 000 ms QRS Dur : 098 ms QT Int : 268 ms P-R-T Axes : 000 -24 073 degrees QTc Int : 412 ms ATRIAL FIBRILLATION WITH RAPID VENTRICULAR RESPONSE MINIMAL VOLTAGE CRITERIA FOR LVH, MAY BE NORMAL VARIANT INFERIOR INFARCT , AGE UNDETERMINED ABNORMAL ECG WHEN COMPARED WITH ECG OF 10-FEB-2017 11:19, ATRIAL FIBRILLATION HAS REPLACED SINUS RHYTHM VENT. RATE HAS INCREASED BY 64 BPM NON-SPECIFIC CHANGE IN ST SEGMENT IN LATERAL LEADS Confirmed by JOHN LOPEZ, SHEY ([id number]) on 02/14/2017 10:24:56 AM Referred By: Confirmed By:SHEY LOPEZ MD
[2017-02-14 11:00] LABS: METAMYELOCYTE 3 % (0-2)
[2017-02-14 11:01] LABS: PLATELET ESTIMATE DECREASED (NORMAL)
[2017-02-14] MEDS: HEPARIN NA (PORCINE) 5,000 UNITS/ML 1ML VIAL IVPUSH PRN ×2 (11:09→18:30)
--- NOTE | 2017-02-14 11:14 | PN ---
Progress Note, Physician History of Present Illness: PULMONARY AWAKE,FEELING WEAK,LESS DYSPNEIC - Current Medication List Current Medications: Active Medications Acetaminophen (Tylenol -) 650 mg PO Q4H PRN PRN Reason: FEVER OR PAIN Last Admin: 02/14/17 06:38 Dose: 650 mg Albuterol/Ipratropium (Duoneb -) 1 amp NEB Q6H PRN PRN Reason: SHORTNESS OF BREATH Last Admin: 02/13/17 10:51 Dose: 1 amp Alprazolam (Xanax -) 0.25 mg PO Q6H PRN Last Admin: 02/13/17 23:17 Dose: 0.25 mg Diltiazem HCl (Cardizem Injection -) 10 mg IVPUSH Q4H PRN PRN Reason: TACHYCARDIA Last Admin: 02/13/17 12:13 Dose: 10 mg Docusate Sodium (Colace -) 100 mg PO BID [facility] Last Admin: 02/14/17 09:40 Dose: 100 mg Gabapentin (Neurontin -) 100 mg PO TID [facility] Last Admin: 02/14/17 06:37 Dose: 100 mg Heparin Sodium (Porcine) (Heparin -) 1,000 unit IVPUSH PRN PRN PRN Reason: Heparin Last Admin: 02/13/17 01:20 Dose: 1,000 unit Heparin Sodium (Porcine) (Heparin -) 5,000 unit IVPUSH PRN PRN PRN Reason: Heparin Hydromorphone HCl (Dilaudid Injection -) 1 mg IVPB Q4H PRN PRN Reason: PAIN Last Admin: 02/14/17 03:32 Dose: 1 mg Heparin Sodium (Porcine) 25, (000 unit/ Sodium Chloride) 500 mls @ 20 mls/hr IV TITR DOMITILA; 1,000 UNIT/HR PRN Reason: Protocol Last Admin: 02/14/17 08:39 Dose: 24 mls/hr Cefazolin Sodium/Dextrose (Ancef 2 Gm Premixed Ivpb -) 50 mls @ 100 mls/hr IVPB Q8H-IV DOMITILA Last Admin: 02/14/17 09:53 Dose: 100 mls/hr Lidocaine (Lidoderm Patch -) 1 patch TP DAILY [facility] Last Admin: 02/14/17 09:41 Dose: 1 patch Metoprolol Tartrate (Lopressor Injection -) 5 mg IVPUSH Q4H PRN Last Admin: 02/12/17 23:52 Dose: 5 mg Metoprolol Tartrate (Lopressor -) 25 mg PO BID [facility] Last Admin: 02/14/17 09:41 Dose: 25 mg Miscellaneous (Lidoderm Patch Removal) 1 each MC DAILY@2200 [facility] Last Admin: 02/13/17 22:53 Dose: 1 each Montelukast Sodium (Singulair -) 10 mg PO HS [facility] Last Admin: 02/13/17 22:05 Dose: Not Given Non-Formulary Medication (Fluticasone/Salmeterol [Advair Hfa 230-21 Mcg Inhaler] ) 1 inh PO BID [facility] Ondansetron HCl (Zofran Injection) 4 mg IVPB Q6H PRN PRN Reason: NAUSEA Oxycodone HCl (Roxicodone -) 5 mg PO Q4H PRN PRN Reason: PAIN Last Admin: 02/14/17 06:37 Dose: 5 mg Polyethylene Glycol (Miralax (For Daily Use) -) 17 gm PO DAILY [facility] Last Admin: 02/14/17 09:42 Dose: 17 gm Potassium Chloride (K-Dur -) 20 meq PO DAILY [facility] Last Admin: 02/14/17 09:41 Dose: 20 meq Zolpidem Tartrate (Ambien -) 5 mg PO HS PRN Last Admin: 02/10/17 21:10 Dose: 5 mg - Objective Vital Signs: Vital Signs Temperature 98.4 F 02/14/17 08:42 Pulse Rate 94 H 02/14/17 08:42 Respiratory Rate 20 02/14/17 08:43 Blood Pressure 137/84 02/14/17 08:42 O2 Sat by Pulse Oximetry (%) 97 02/13/17 22:00 Constitutional: Yes: Well Nourished, Other (MILDLY DYSPNEIC) Eyes: Yes: WNL HENT: Yes: WNL Neck: Yes: WNL Cardiovascular: Yes: Pulse Irregular, S1, S2 Respiratory: Yes: Rhonchi (SCATTERED CANDICE RHONCHI) Gastrointestinal: Yes: Normal Bowel Sounds, Soft Extremities: Yes: WNL Edema: No Labs: CBC, BMP 02/14/17 06:00 02/14/17 06:00 INR, PTT INR 1.20 (0.82-1.09) H 02/12/17 06:00 - ....Imaging Cat Scan: Report Reviewed, Image Reviewed (SMALL CANDICE EFFUSIONS,ATELECTASIS) Assessment/Plan Problem List - Problems (1) AAA (abdominal aortic aneurysm) without rupture Code(s): I71.4 - ABDOMINAL AORTIC ANEURYSM, WITHOUT RUPTURE (2) ALBERTO (acute kidney injury) Code(s): N17.9 - ACUTE KIDNEY FAILURE, UNSPECIFIED (3) Atrial fibrillation with rapid ventricular response Code(s): I48.91 - UNSPECIFIED ATRIAL FIBRILLATION (4) Back pain Code(s): M54.9 - DORSALGIA, UNSPECIFIED Qualifiers: Back pain location: low back pain Chronicity: acute Back pain laterality: bilateral Sciatica presence: without sciatica Qualified Code(s): M54.5 - Low back pain (5) Foot pain, left Code(s): M79.672 - PAIN IN LEFT FOOT (6) Hypotension Code(s): I95.9 - HYPOTENSION, UNSPECIFIED Qualifiers: Hypotension type: unspecified hypotension type Qualified Code(s): I95.9 - Hypotension, unspecified (7) MSSA (methicillin susceptible Staphylococcus aureus) septicemia Code(s): A41.01 - SEPSIS DUE TO METHICILLIN SUSCEPTIBLE STAPHYLOCOCCUS AUREUS (8) Paroxysmal atrial fibrillation with RVR Code(s): I48.0 - PAROXYSMAL ATRIAL FIBRILLATION (9) Sepsis Code(s): A41.9 - SEPSIS, UNSPECIFIED ORGANISM (10) Thoracic aortic aneurysm without rupture Code(s): I71.2 - THORACIC AORTIC ANEURYSM, WITHOUT RUPTURE Assessment/Plan Need to exclude endocarditis O2 at maintain sat 90% ABX Per ID Inhaled bronchodilators AC with IV Heparin Strict I&O BD TX FABIOLA DR MARTE
--- NOTE | 2017-02-14 11:28 | PN ---
Progress Note, Physician Chief Complaint: Slept better; less SOB and pain. History of Present Illness: Patient with MSSA Scepticemia and pain in the back and left foot complicated by rapid A. Fibrillation and pleural effusions with acute on chronic renal failure appears improved today with NSR, less pain and SOB. Abdominal,Pelvic and Chest CAT scans noted and there is some psoas muscle inflammation and pleural effusions with enlarged prostate and some pelvic nodes but no acute mass or abscess noted. Patient and family notified. - Current Medication List Current Medications: Active Medications Acetaminophen (Tylenol -) 650 mg PO Q4H PRN PRN Reason: FEVER OR PAIN Last Admin: 02/14/17 06:38 Dose: 650 mg Albuterol/Ipratropium (Duoneb -) 1 amp NEB Q6H PRN PRN Reason: SHORTNESS OF BREATH Last Admin: 02/13/17 10:51 Dose: 1 amp Alprazolam (Xanax -) 0.25 mg PO Q6H PRN Last Admin: 02/13/17 23:17 Dose: 0.25 mg Diltiazem HCl (Cardizem Injection -) 10 mg IVPUSH Q4H PRN PRN Reason: TACHYCARDIA Last Admin: 02/13/17 12:13 Dose: 10 mg Docusate Sodium (Colace -) 100 mg PO BID [facility] Last Admin: 02/14/17 09:40 Dose: 100 mg Gabapentin (Neurontin -) 100 mg PO TID [facility] Last Admin: 02/14/17 06:37 Dose: 100 mg Heparin Sodium (Porcine) (Heparin -) 1,000 unit IVPUSH PRN PRN PRN Reason: Heparin Last Admin: 02/13/17 01:20 Dose: 1,000 unit Heparin Sodium (Porcine) (Heparin -) 5,000 unit IVPUSH PRN PRN PRN Reason: Heparin Last Admin: 02/14/17 11:09 Dose: 5,000 unit Hydromorphone HCl (Dilaudid Injection -) 1 mg IVPB Q4H PRN PRN Reason: PAIN Last Admin: 02/14/17 03:32 Dose: 1 mg Heparin Sodium (Porcine) 25, (000 unit/ Sodium Chloride) 500 mls @ 20 mls/hr IV TITR DOMITILA; 1,000 UNIT/HR PRN Reason: Protocol Last Titration: 02/14/17 11:11 Dose: 1,350 unit/hr Cefazolin Sodium/Dextrose (Ancef 2 Gm Premixed Ivpb -) 50 mls @ 100 mls/hr IVPB Q8H-IV [facility] Last Admin: 02/14/17 09:53 Dose: 100 mls/hr Lidocaine (Lidoderm Patch -) 1 patch TP DAILY [facility] Last Admin: 02/14/17 09:41 Dose: 1 patch Metoprolol Tartrate (Lopressor Injection -) 5 mg IVPUSH Q4H PRN Last Admin: 02/12/17 23:52 Dose: 5 mg Metoprolol Tartrate (Lopressor -) 25 mg PO BID [facility] Last Admin: 02/14/17 09:41 Dose: 25 mg Miscellaneous (Lidoderm Patch Removal) 1 each MC DAILY@2200 [facility] Last Admin: 02/13/17 22:53 Dose: 1 each Montelukast Sodium (Singulair -) 10 mg PO HS [facility] Last Admin: 02/13/17 22:05 Dose: Not Given Non-Formulary Medication (Fluticasone/Salmeterol [Advair Hfa 230-21 Mcg Inhaler] ) 1 inh PO BID [facility] Ondansetron HCl (Zofran Injection) 4 mg IVPB Q6H PRN PRN Reason: NAUSEA Oxycodone HCl (Roxicodone -) 5 mg PO Q4H PRN PRN Reason: PAIN Last Admin: 02/14/17 06:37 Dose: 5 mg Polyethylene Glycol (Miralax (For Daily Use) -) 17 gm PO BID [facility] Potassium Chloride (K-Dur -) 20 meq PO DAILY [facility] Last Admin: 02/14/17 09:41 Dose: 20 meq Zolpidem Tartrate (Ambien -) 5 mg PO HS PRN Last Admin: 02/10/17 21:10 Dose: 5 mg - Objective Vital Signs: Vital Signs Temperature 98.4 F 02/14/17 08:42 Pulse Rate 94 H 02/14/17 08:42 Respiratory Rate 20 02/14/17 08:43 Blood Pressure 137/84 02/14/17 08:42 O2 Sat by Pulse Oximetry (%) 97 02/13/17 22:00 Constitutional: Yes: Calm. No: Pallor Cardiovascular: Yes: Regular Rate and Rhythm Respiratory: Yes: Diminished, Rales (few aty bases) Gastrointestinal: Yes: Soft. No: Tenderness Genitourinary: Yes: Fragoso Present Edema: LLE: Trace Integumentary: Yes: Erythema (dorsum left foot but less tender today.), Rash Neurological: Yes: Alert, Oriented, Weakness Labs: CBC, BMP 02/14/17 06:00 02/14/17 06:00 INR, PTT INR 1.20 (0.82-1.09) H 02/12/17 06:00 - ....Imaging Cat Scan: Report Reviewed Problem List - Problems (1) Atrial fibrillation with rapid ventricular response Assessment/Plan: Back in Sinus Rhythm with addition of beta jacquelin. Code(s): I48.91 - UNSPECIFIED ATRIAL FIBRILLATION (2) Back pain Assessment/Plan: Present but tolerated with the current pain Rx Code(s): M54.9 - DORSALGIA, UNSPECIFIED Qualifiers: Back pain location: low back pain Chronicity: acute Back pain laterality: bilateral Sciatica presence: without sciatica Qualified Code(s): M54.5 - Low back pain (3) Sepsis Assessment/Plan: MSSA in all 4 Blood C/S; On Ancef as per ID MD Code(s): A41.9 - SEPSIS, UNSPECIFIED ORGANISM (4) ALBERTO (acute kidney injury) Assessment/Plan: Stable and followed by Renal MD Code(s): N17.9 - ACUTE KIDNEY FAILURE, UNSPECIFIED (5) Hypotension Assessment/Plan: Stable with NSR. Code(s): I95.9 - HYPOTENSION, UNSPECIFIED Qualifiers: Hypotension type: unspecified hypotension type Qualified Code(s): I95.9 - Hypotension, unspecified (6) Lactic acidosis Code(s): E87.2 - ACIDOSIS (7) Sepsis associated hypotension Assessment/Plan: Improved Code(s): A41.9 - SEPSIS, UNSPECIFIED ORGANISM (8) AAA (abdominal aortic aneurysm) without rupture Code(s): I71.4 - ABDOMINAL AORTIC ANEURYSM, WITHOUT RUPTURE (9) Pain Code(s): R52 - PAIN, UNSPECIFIED (10) Foot pain, left Assessment/Plan: Improved but still some swelling and erythema dorsum of foot. Code(s): M79.672 - PAIN IN LEFT FOOT
--- NOTE | 2017-02-14 12:34 | PN ---
Progress Note (short form) - Note Progress Note: RENAL Pt is awake and alert has been very uncomfortable has back and left dorsum of foot pain more comfortable with guzmán catheter in. Nurse said he had 180 cc in bladder when initially inserted Last Vital Signs Temp Pulse Resp BP Pulse Ox 98.4 F 94 H 20 137/84 97 02/14/17 08:42 02/14/17 08:42 02/14/17 08:43 02/14/17 08:42 02/13/17 22:00 lungs rhonchi cvs s1s2 rr abd soft ext +edema, left foot is tender and swolllen over left first tarsal metatarsal joint neuro a+ox3 skin has some erythema on left AC area and right arm gu guzmán in place CBC, BMP 02/14/17 06:00 02/14/17 06:00 Current Medications Generic Name Dose Route Start Last Admin Trade Name Freq PRN Reason Stop Dose Admin Acetaminophen 650 mg 02/10/17 15:43 02/14/17 06:38 Tylenol - PO 650 mg Q4H PRN Administration FEVER OR PAIN Albuterol/Ipratropium 1 amp 02/11/17 14:36 02/13/17 10:51 Duoneb - NEB 1 amp Q6H PRN Administration SHORTNESS OF BREATH Alprazolam 0.25 mg 02/13/17 02:25 02/13/17 23:17 Xanax - PO 0.25 mg Q6H PRN Administration Diltiazem HCl 10 mg 02/12/17 07:18 02/13/17 12:13 Cardizem Injection - IVPUSH 10 mg Q4H PRN Administration TACHYCARDIA Docusate Sodium 100 mg 02/10/17 22:00 02/14/17 09:40 Colace - PO 100 mg BID DOMITILA Administration Gabapentin 100 mg 02/11/17 08:00 02/14/17 06:37 Neurontin - PO 100 mg TID DOMITILA Administration Heparin Sodium (Porcine) 1,000 unit 02/12/17 06:55 02/13/17 01:20 Heparin - IVPUSH 1,000 unit PRN PRN Administration Heparin Heparin Sodium (Porcine) 5,000 unit 02/12/17 06:55 02/14/17 11:09 Heparin - IVPUSH 5,000 unit PRN PRN Administration Heparin Hydromorphone HCl 1 mg 02/10/17 15:43 02/14/17 03:32 Dilaudid Injection - IVPB 1 mg Q4H PRN Administration PAIN Heparin Sodium (Porcine) 25, 500 mls @ 20 mls/hr 02/12/17 07:00 02/14/17 11:11 000 unit/ Sodium Chloride IV 1,350 unit/hr TITR DOMITILA Titration Protocol 1,000 UNIT/HR Cefazolin Sodium/Dextrose 50 mls @ 100 mls/hr 02/12/17 10:00 02/14/17 09:53 Ancef 2 Gm Premixed Ivpb - IVPB 100 mls/hr Q8H-IV [facility]ILA Administration Lidocaine 1 patch 02/11/17 10:00 02/14/17 09:41 Lidoderm Patch - TP 1 patch DAILY [facility] Administration Metoprolol Tartrate 5 mg 02/12/17 23:16 02/12/17 23:52 Lopressor Injection - IVPUSH 5 mg Q4H PRN Administration Metoprolol Tartrate 25 mg 02/13/17 22:00 02/14/17 09:41 Lopressor - PO 25 mg BID [facility]ILA Administration Miscellaneous 1 each 02/11/17 22:00 02/13/17 22:53 Lidoderm Patch Removal MC 1 each DAILY@2200 [facility] Administration Montelukast Sodium 10 mg 02/10/17 22:00 02/13/17 22:05 Singulair - PO Not Given HS [facility]A Non-Formulary Medication 1 inh 02/10/17 22:00 Fluticasone/Salmeterol [Advair Hfa 230-21 Mcg Inhaler] PO BID [facility] Ondansetron HCl 4 mg 02/10/17 15:43 Zofran Injection IVPB Q6H PRN NAUSEA Oxycodone HCl 5 mg 02/10/17 15:43 02/14/17 06:37 Roxicodone - PO 5 mg Q4H PRN Administration PAIN Polyethylene Glycol 17 gm 02/14/17 22:00 Miralax (For Daily Use) - PO BID [facility] Potassium Chloride 20 meq 02/13/17 02:30 02/14/17 09:41 K-Dur - PO 20 meq DAILY [facility] Administration Zolpidem Tartrate 5 mg 02/10/17 17:39 02/10/17 21:10 Ambien - PO 5 mg HS PRN Administration Impression 1. ALBERTO- r/o urine retention. Had a bladder scan that showed 145 cc of urine. May also be due to contrast 2. lactic acidosis 3. hypotension 4. hx of HTN 5. asthma 6. back pain 7. r/o dissection 8. sepsis, MSSA 9. bacteremia r/o discitis 10 atrial fibrillation on heparin 11 r/o gout Plan continue heparin and antibiotics replace k uric acid level is normal but that does not exclude gout would keep guzmán another 24 hours. If his pain is better would dc guzmán MV
--- NOTE | 2017-02-14 12:42 | PN ---
Progress Note, Physician History of Present Illness: Back pain improved, LS spine negative for spinal osteo or diskitis, CT scan neg for iliopsoas abscess, but does show inflammatory changes. Back in sinus rhythm. Chest CT shows bilateral lower lobe consolidation, trace effusions. - Current Medication List Current Medications: Active Medications Acetaminophen (Tylenol -) 650 mg PO Q4H PRN PRN Reason: FEVER OR PAIN Last Admin: 02/14/17 06:38 Dose: 650 mg Albuterol/Ipratropium (Duoneb -) 1 amp NEB Q6H PRN PRN Reason: SHORTNESS OF BREATH Last Admin: 02/13/17 10:51 Dose: 1 amp Alprazolam (Xanax -) 0.25 mg PO Q6H PRN Last Admin: 02/13/17 23:17 Dose: 0.25 mg Diltiazem HCl (Cardizem Injection -) 10 mg IVPUSH Q4H PRN PRN Reason: TACHYCARDIA Last Admin: 02/13/17 12:13 Dose: 10 mg Docusate Sodium (Colace -) 100 mg PO BID [facility] Last Admin: 02/14/17 09:40 Dose: 100 mg Gabapentin (Neurontin -) 100 mg PO TID [facility] Last Admin: 02/14/17 06:37 Dose: 100 mg Heparin Sodium (Porcine) (Heparin -) 1,000 unit IVPUSH PRN PRN PRN Reason: Heparin Last Admin: 02/13/17 01:20 Dose: 1,000 unit Heparin Sodium (Porcine) (Heparin -) 5,000 unit IVPUSH PRN PRN PRN Reason: Heparin Last Admin: 02/14/17 11:09 Dose: 5,000 unit Hydromorphone HCl (Dilaudid Injection -) 1 mg IVPB Q4H PRN PRN Reason: PAIN Last Admin: 02/14/17 03:32 Dose: 1 mg Heparin Sodium (Porcine) 25, (000 unit/ Sodium Chloride) 500 mls @ 20 mls/hr IV TITR [facility]ILA; 1,000 UNIT/HR PRN Reason: Protocol Last Titration: 02/14/17 11:11 Dose: 1,350 unit/hr Cefazolin Sodium/Dextrose (Ancef 2 Gm Premixed Ivpb -) 50 mls @ 100 mls/hr IVPB Q8H-IV [facility] Last Admin: 02/14/17 09:53 Dose: 100 mls/hr Lidocaine (Lidoderm Patch -) 1 patch TP DAILY [facility] Last Admin: 02/14/17 09:41 Dose: 1 patch Metoprolol Tartrate (Lopressor Injection -) 5 mg IVPUSH Q4H PRN Last Admin: 02/12/17 23:52 Dose: 5 mg Metoprolol Tartrate (Lopressor -) 25 mg PO BID [facility] Last Admin: 02/14/17 09:41 Dose: 25 mg Miscellaneous (Lidoderm Patch Removal) 1 each MC DAILY@2200 [facility] Last Admin: 02/13/17 22:53 Dose: 1 each Montelukast Sodium (Singulair -) 10 mg PO HS [facility] Last Admin: 02/13/17 22:05 Dose: Not Given Non-Formulary Medication (Fluticasone/Salmeterol [Advair Hfa 230-21 Mcg Inhaler] ) 1 inh PO BID [facility] Ondansetron HCl (Zofran Injection) 4 mg IVPB Q6H PRN PRN Reason: NAUSEA Oxycodone HCl (Roxicodone -) 5 mg PO Q4H PRN PRN Reason: PAIN Last Admin: 02/14/17 06:37 Dose: 5 mg Polyethylene Glycol (Miralax (For Daily Use) -) 17 gm PO BID [facility] Potassium Chloride (K-Dur -) 20 meq PO DAILY [facility] Last Admin: 02/14/17 09:41 Dose: 20 meq Zolpidem Tartrate (Ambien -) 5 mg PO HS PRN Last Admin: 02/10/17 21:10 Dose: 5 mg - Objective Vital Signs: Vital Signs Temperature 98.4 F 02/14/17 08:42 Pulse Rate 94 H 02/14/17 08:42 Respiratory Rate 20 02/14/17 08:43 Blood Pressure 137/84 02/14/17 08:42 O2 Sat by Pulse Oximetry (%) 97 02/13/17 22:00 Constitutional: Yes: No Distress, Calm Neck: Yes: Supple Cardiovascular: Yes: Regular Rate and Rhythm Respiratory: Yes: Regular, Diminished, On Nasal O2 Gastrointestinal: Yes: Normal Bowel Sounds, Soft, Abdomen, Obese Edema: No Labs: CBC, BMP 02/14/17 06:00 02/14/17 06:00 INR, PTT INR 1.20 (0.82-1.09) H 02/12/17 06:00 Problem List - Problems (1) ALBERTO (acute kidney injury) Code(s): N17.9 - ACUTE KIDNEY FAILURE, UNSPECIFIED (2) Lactic acidosis Code(s): E87.2 - ACIDOSIS (3) Sepsis associated hypotension Code(s): A41.9 - SEPSIS, UNSPECIFIED ORGANISM (4) MSSA (methicillin susceptible Staphylococcus aureus) septicemia Code(s): A41.01 - SEPSIS DUE TO METHICILLIN SUSCEPTIBLE STAPHYLOCOCCUS AUREUS (5) Paroxysmal atrial fibrillation with RVR Code(s): I48.0 - PAROXYSMAL ATRIAL FIBRILLATION (6) Thrombocytopenia Code(s): D69.6 - THROMBOCYTOPENIA, UNSPECIFIED (7) Hypokalemia Code(s): E87.6 - HYPOKALEMIA (8) Back pain Code(s): M54.9 - DORSALGIA, UNSPECIFIED Qualifiers: Back pain location: low back pain Chronicity: acute Back pain laterality: bilateral Sciatica presence: without sciatica Qualified Code(s): M54.5 - Low back pain (9) Thoracic aortic aneurysm without rupture Code(s): I71.2 - THORACIC AORTIC ANEURYSM, WITHOUT RUPTURE Assessment/Plan 02/11/2017 Echo: Mildly decreased LV fxn with mild-mod anterior, anteroseptal HK with mild RV dysfunction, mild MR, TR, AR, AL, mildly dilated ascending aortic root 1. Persistent MSSA bacteremia with possible endocarditis, early left iliopsoas inflammation 2. Paroxysmal atrial fibrillation with RVR [id number] with possible left foot thromboembolism vs septic emboli 3. ALBERTO and lactic acidosis due to hemodynamic alterations resolving 4. 4.1 cm TAA 5. Thrombocytopenia due to sepsis 6. Acute on chronic diastolic failure improved 7. Possible gout vs septic emboli to left foot P:1. Cardizem IV and Lopressor 50 bid as hemodynamics tolerate for rate-control , hep gtt with caution given thrombocytropenia 2. Replete K as you are, analgesia as needed, f/u surveillance bld cx, Ancef per sensitivities 3. Plan for FABIOLA given persistent bacteremia despite appropriate abx course
--- NOTE | 2017-02-14 12:46 | PN ---
Progress Note, Physician History of Present Illness: No c/o back pain Family at bedside report he is more comfortable today Afebrile WBC remains elevated Repeat BC pending - Current Medication List Current Medications: Active Medications Acetaminophen (Tylenol -) 650 mg PO Q4H PRN PRN Reason: FEVER OR PAIN Last Admin: 02/14/17 06:38 Dose: 650 mg Albuterol/Ipratropium (Duoneb -) 1 amp NEB Q6H PRN PRN Reason: SHORTNESS OF BREATH Last Admin: 02/13/17 10:51 Dose: 1 amp Alprazolam (Xanax -) 0.25 mg PO Q6H PRN Last Admin: 02/13/17 23:17 Dose: 0.25 mg Diltiazem HCl (Cardizem Injection -) 10 mg IVPUSH Q4H PRN PRN Reason: TACHYCARDIA Last Admin: 02/13/17 12:13 Dose: 10 mg Docusate Sodium (Colace -) 100 mg PO BID [facility] Last Admin: 02/14/17 09:40 Dose: 100 mg Gabapentin (Neurontin -) 100 mg PO TID [facility] Last Admin: 02/14/17 06:37 Dose: 100 mg Heparin Sodium (Porcine) (Heparin -) 1,000 unit IVPUSH PRN PRN PRN Reason: Heparin Last Admin: 02/13/17 01:20 Dose: 1,000 unit Heparin Sodium (Porcine) (Heparin -) 5,000 unit IVPUSH PRN PRN PRN Reason: Heparin Last Admin: 02/14/17 11:09 Dose: 5,000 unit Hydromorphone HCl (Dilaudid Injection -) 1 mg IVPB Q4H PRN PRN Reason: PAIN Last Admin: 02/14/17 03:32 Dose: 1 mg Heparin Sodium (Porcine) 25, (000 unit/ Sodium Chloride) 500 mls @ 20 mls/hr IV TITR [facility]; 1,000 UNIT/HR PRN Reason: Protocol Last Titration: 02/14/17 11:11 Dose: 1,350 unit/hr Cefazolin Sodium/Dextrose (Ancef 2 Gm Premixed Ivpb -) 50 mls @ 100 mls/hr IVPB Q8H-IV [facility] Last Admin: 02/14/17 09:53 Dose: 100 mls/hr Lidocaine (Lidoderm Patch -) 1 patch TP DAILY [facility] Last Admin: 02/14/17 09:41 Dose: 1 patch Metoprolol Tartrate (Lopressor Injection -) 5 mg IVPUSH Q4H PRN Last Admin: 02/12/17 23:52 Dose: 5 mg Metoprolol Tartrate (Lopressor -) 25 mg PO BID [facility] Last Admin: 02/14/17 09:41 Dose: 25 mg Miscellaneous (Lidoderm Patch Removal) 1 each MC DAILY@2200 [facility] Last Admin: 02/13/17 22:53 Dose: 1 each Montelukast Sodium (Singulair -) 10 mg PO HS [facility] Last Admin: 02/13/17 22:05 Dose: Not Given Non-Formulary Medication (Fluticasone/Salmeterol [Advair Hfa 230-21 Mcg Inhaler] ) 1 inh PO BID [facility] Ondansetron HCl (Zofran Injection) 4 mg IVPB Q6H PRN PRN Reason: NAUSEA Oxycodone HCl (Roxicodone -) 5 mg PO Q4H PRN PRN Reason: PAIN Last Admin: 02/14/17 06:37 Dose: 5 mg Polyethylene Glycol (Miralax (For Daily Use) -) 17 gm PO BID [facility] Potassium Chloride (K-Dur -) 20 meq PO DAILY [facility] Last Admin: 02/14/17 09:41 Dose: 20 meq Zolpidem Tartrate (Ambien -) 5 mg PO HS PRN Last Admin: 02/10/17 21:10 Dose: 5 mg - Objective Vital Signs: Vital Signs Temperature 98.4 F 02/14/17 08:42 Pulse Rate 94 H 02/14/17 08:42 Respiratory Rate 20 02/14/17 08:43 Blood Pressure 137/84 02/14/17 08:42 O2 Sat by Pulse Oximetry (%) 97 02/13/17 22:00 Constitutional: Yes: No Distress, Obese Cardiovascular: Yes: Regular Rate and Rhythm, S1, S2 Respiratory: Yes: CTA Bilaterally Gastrointestinal: Yes: Normal Bowel Sounds, Soft, Abdomen, Obese. No: Tenderness Extremities: Yes: Other (erythema, dorsum L foot) Edema: Yes Labs: CBC, BMP 02/14/17 06:00 02/14/17 06:00 INR, PTT INR 1.20 (0.82-1.09) H 02/12/17 06:00 Assessment/Plan MSSA bacteremia/possible endocarditis Possible early psoas abscess Possible cellulitis L foot Thrombocytopenia secondary to sepsis Azotemia Check repeat BC Continue cefazolin Discussed with family at bedside
[2017-02-14] MEDS ORDERED: METOPROLOL TARTRATE 25 MG TABLET (FP) PO ONE (12:57)
[2017-02-14] MEDS: LIDOCAINE PATCH REMOVAL MC SCH (21:45)
[2017-02-14] MEDS: MONTELUKAST NA 10 MG TABLET PO SCH (21:45)
[2017-02-14] MEDS: ALPRAZolam 0.25 MG TABLET PO PRN (21:45)
[2017-02-14] MEDS: METOPROLOL TARTRATE 50 MG TABLET (FP) PO SCH (21:45)
[2017-02-15] MEDS ORDERED: PT OWN MED DRAWER 7, Y5N ONE ×5 (00:56→21:49)
[2017-02-15] MEDS: HYDROmorphone HCL CARPU-JECT 1 MG/1 ML DISP.SYRIN IVPB PRN ×4 (01:48→17:51)
[2017-02-15] MEDS: HEPARIN NA (PORCINE) 5,000 UNITS/ML 1ML VIAL IVPUSH PRN ×2 (01:54→21:45)
[2017-02-15] MEDS: HEPARIN - 25,000 UNIT in SODIUM CHLORIDE 495 ML IV SCH ×3 (01:55→21:45)
[2017-02-15] MEDS: METOPROLOL TARTRATE 5 MG/5 ML VIAL IVPUSH PRN (01:55)
[2017-02-15] MEDS: CEFAZOLIN 2 GM/D5W 50 ML IVPB SCH ×3 (02:13→17:09)
[2017-02-15] MEDS: GABAPENTIN 100 MG CAPSULE (FP) PO SCH ×3 (05:56→21:08)
[2017-02-15 07:08] LABS: MCH 33.7 pg (25.7-33.7); MCHC 33.7 g/dl (32.0-35.9); MEAN CELL VOLUME 99.7 fl (80-96); MEAN PLT VOLUME 9.4 fl (7.5-11.1); PLATELET COUNT 86 K/MM3 (134-434); RDW 14.4 % (11.9-15.9)
[2017-02-15 07:29] LABS: CALCIUM 8.7 mg/dL (8.5-10.1); COCKROFT - GAULT 72.95; CREATININE 1.1 mg/dL (0.7-1.3)
[2017-02-15 07:36] LABS: C-REACTIVE PROTEIN 23.8 MG/DL (0.00-0.3)
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
[2017-02-15 08:49] LABS: INR 1.28 (0.82-1.09); PROTHROMBIN TIME (PATIENT) 14.2 SEC (9.98-11.88)
[2017-02-15] MEDS: METOPROLOL TARTRATE 50 MG TABLET (FP) PO SCH ×2 (09:58→21:08)
[2017-02-15] MEDS: LIDOCAINE 5% TOPICAL PATCH TP SCH (09:58)
[2017-02-15] MEDS: DOCUSATE SODIUM 100 MG CAPSULE (FP) PO SCH ×2 (09:58→21:08)
[2017-02-15] MEDS: POLYETHYLENE GLYCOL 3350 119 GM BTL PO SCH ×2 (09:59→21:09)
[2017-02-15] MEDS: POTASSIUM CHLORIDE TABS 20 MEQ TABLET.ER (FP) PO SCH ×2 (09:59→21:08)
--- NOTE | 2017-02-15 10:18 | PN ---
Progress Note, Physician Chief Complaint: Events noted. Spoke with regarding planned FABIOLA today. Risk and benefits informed Patient is NPO History of Present Illness: Patient was seen and examined. Arousable. Chart was reviewed Does not appear to be in distress - Current Medication List Current Medications: Active Medications Acetaminophen (Tylenol -) 650 mg PO Q4H PRN PRN Reason: FEVER OR PAIN Last Admin: 02/14/17 06:38 Dose: 650 mg Albuterol/Ipratropium (Duoneb -) 1 amp NEB Q6H PRN PRN Reason: SHORTNESS OF BREATH Last Admin: 02/13/17 10:51 Dose: 1 amp Alprazolam (Xanax -) 0.25 mg PO Q6H PRN Last Admin: 02/14/17 21:45 Dose: 0.25 mg Diltiazem HCl (Cardizem Injection -) 10 mg IVPUSH Q4H PRN PRN Reason: TACHYCARDIA Last Admin: 02/13/17 12:13 Dose: 10 mg Docusate Sodium (Colace -) 100 mg PO BID [facility] Last Admin: 02/15/17 09:58 Dose: Not Given Gabapentin (Neurontin -) 100 mg PO TID [facility] Last Admin: 02/15/17 05:56 Dose: Not Given Heparin Sodium (Porcine) (Heparin -) 1,000 unit IVPUSH PRN PRN PRN Reason: Heparin Last Admin: 02/15/17 01:54 Dose: 1,000 unit Heparin Sodium (Porcine) (Heparin -) 5,000 unit IVPUSH PRN PRN PRN Reason: Heparin Last Admin: 02/14/17 11:09 Dose: 5,000 unit Hydromorphone HCl (Dilaudid Injection -) 1 mg IVPB Q4H PRN PRN Reason: PAIN Last Admin: 02/15/17 06:58 Dose: 1 mg Heparin Sodium (Porcine) 25, (000 unit/ Sodium Chloride) 500 mls @ 20 mls/hr IV TITR DOMITILA; 1,000 UNIT/HR PRN Reason: Protocol Last Admin: 02/15/17 09:59 Dose: 33 mls/hr Cefazolin Sodium/Dextrose (Ancef 2 Gm Premixed Ivpb -) 50 mls @ 100 mls/hr IVPB Q8H-IV [facility] Last Admin: 02/15/17 02:13 Dose: 100 mls/hr Lidocaine (Lidoderm Patch -) 1 patch TP DAILY [facility] Last Admin: 02/15/17 09:58 Dose: 1 patch Metoprolol Tartrate (Lopressor Injection -) 5 mg IVPUSH Q4H PRN Last Admin: 02/15/17 01:55 Dose: 5 mg Metoprolol Tartrate (Lopressor -) 50 mg PO BID [facility] Last Admin: 02/15/17 09:58 Dose: 50 mg Miscellaneous (Lidoderm Patch Removal) 1 each MC DAILY@2200 [facility] Last Admin: 02/14/17 21:45 Dose: 1 each Montelukast Sodium (Singulair -) 10 mg PO HS [facility] Last Admin: 02/14/17 21:45 Dose: 10 mg Non-Formulary Medication (Fluticasone/Salmeterol [Advair Hfa 230-21 Mcg Inhaler] ) 1 inh PO BID [facility] Ondansetron HCl (Zofran Injection) 4 mg IVPB Q6H PRN PRN Reason: NAUSEA Oxycodone HCl (Roxicodone -) 5 mg PO Q4H PRN PRN Reason: PAIN Last Admin: 02/14/17 21:44 Dose: 5 mg Polyethylene Glycol (Miralax (For Daily Use) -) 17 gm PO BID [facility] Last Admin: 02/15/17 09:59 Dose: Not Given Potassium Chloride (K-Dur -) 20 meq PO DAILY [facility] Last Admin: 02/15/17 09:59 Dose: Not Given Zolpidem Tartrate (Ambien -) 5 mg PO HS PRN Last Admin: 02/10/17 21:10 Dose: 5 mg - Objective Vital Signs: Vital Signs Temperature 98 F 02/15/17 06:42 Pulse Rate 101 H 02/15/17 06:42 Respiratory Rate 22 02/15/17 06:42 Blood Pressure 159/78 02/15/17 06:42 O2 Sat by Pulse Oximetry (%) 94 L 02/14/17 22:00 Neck: Yes: Supple Cardiovascular: Yes: Regular Rate and Rhythm, S1, S2 Respiratory: Yes: CTA Bilaterally Gastrointestinal: Yes: Normal Bowel Sounds, Soft. No: Tenderness Edema: No Labs: 02/15/17 06:00 INR, PTT INR 1.28 (0.82-1.09) H 02/15/17 06:00 Fibrinogen 668.0 mg/dL (238-498) H 02/15/17 06:00 Assessment/Plan 1. Persistent MSSA bacteremia - rule out endocarditis in addition to early left iliopsoas inflammation 2. Paroxysmal atrial fibrillation with RVR [id number] of 2 with possible left foot thromboembolism vs septic emboli 3. ALBERTO and lactic acidosis 4. 4.1 cm TAA 5. Thrombocytopenia due to sepsis 6. Acute on chronic diastolic failure improved 7. Possible gout vs septic emboli to left foot PLAN: 1. Cardizem IV PRN and Lopressor 50 mg bid as hemodynamics tolerate for rate- control. Continue Hepatin drip with caution given thrombocytopenia 2. Replete K and monitor BMP. Continue antibiotic coverage 3. Plan for FABIOLA given persistent bacteremia Further plans are to follow Jaquan Calvert MD
[2017-02-15 11:02] LABS: ERYTHROCYTE SEDIMENTATION RATE 98 mm/hr (0-20)
[2017-02-15 11:43] LABS: PLATELET ESTIMATE DECREASED (NORMAL); TOXIC GRANULATION 4+
[2017-02-15] MEDS ORDERED: LIDOCAINE VISCOUS 2% ORAL/TOP 20 ML UNIT-DOSE CUP MM ONE (12:06)
--- NOTE | 2017-02-15 13:12 | PN ---
Progress Note, Physician History of Present Illness: Pt seen and examined at bedside. He is currently in endoscopy and is still sedated. - Current Medication List Current Medications: Active Medications Acetaminophen (Tylenol -) 650 mg PO Q4H PRN PRN Reason: FEVER OR PAIN Last Admin: 02/14/17 06:38 Dose: 650 mg Albuterol/Ipratropium (Duoneb -) 1 amp NEB Q6H PRN PRN Reason: SHORTNESS OF BREATH Last Admin: 02/13/17 10:51 Dose: 1 amp Alprazolam (Xanax -) 0.25 mg PO Q6H PRN Last Admin: 02/14/17 21:45 Dose: 0.25 mg Diltiazem HCl (Cardizem Injection -) 10 mg IVPUSH Q4H PRN PRN Reason: TACHYCARDIA Last Admin: 02/13/17 12:13 Dose: 10 mg Docusate Sodium (Colace -) 100 mg PO BID [facility] Last Admin: 02/15/17 09:58 Dose: Not Given Gabapentin (Neurontin -) 100 mg PO TID [facility] Last Admin: 02/15/17 05:56 Dose: Not Given Heparin Sodium (Porcine) (Heparin -) 1,000 unit IVPUSH PRN PRN PRN Reason: Heparin Last Admin: 02/15/17 01:54 Dose: 1,000 unit Heparin Sodium (Porcine) (Heparin -) 5,000 unit IVPUSH PRN PRN PRN Reason: Heparin Last Admin: 02/14/17 11:09 Dose: 5,000 unit Hydromorphone HCl (Dilaudid Injection -) 1 mg IVPB Q4H PRN PRN Reason: PAIN Last Admin: 02/15/17 06:58 Dose: 1 mg Heparin Sodium (Porcine) 25, (000 unit/ Sodium Chloride) 500 mls @ 20 mls/hr IV TITR [facility]; 1,000 UNIT/HR PRN Reason: Protocol Last Admin: 02/15/17 09:59 Dose: 33 mls/hr Cefazolin Sodium/Dextrose (Ancef 2 Gm Premixed Ivpb -) 50 mls @ 100 mls/hr IVPB Q8H-IV [facility] Last Admin: 02/15/17 10:17 Dose: 100 mls/hr Lidocaine (Lidoderm Patch -) 1 patch TP DAILY [facility] Last Admin: 02/15/17 09:58 Dose: 1 patch Metoprolol Tartrate (Lopressor Injection -) 5 mg IVPUSH Q4H PRN Last Admin: 02/15/17 01:55 Dose: 5 mg Metoprolol Tartrate (Lopressor -) 50 mg PO BID [facility] Last Admin: 02/15/17 09:58 Dose: 50 mg Miscellaneous (Lidoderm Patch Removal) 1 each MC DAILY@2200 [facility] Last Admin: 02/14/17 21:45 Dose: 1 each Montelukast Sodium (Singulair -) 10 mg PO HS [facility] Last Admin: 02/14/17 21:45 Dose: 10 mg Non-Formulary Medication (Fluticasone/Salmeterol [Advair Hfa 230-21 Mcg Inhaler] ) 1 inh PO BID [facility] Ondansetron HCl (Zofran Injection) 4 mg IVPB Q6H PRN PRN Reason: NAUSEA Oxycodone HCl (Roxicodone -) 5 mg PO Q4H PRN PRN Reason: PAIN Last Admin: 02/14/17 21:44 Dose: 5 mg Polyethylene Glycol (Miralax (For Daily Use) -) 17 gm PO BID [facility] Last Admin: 02/15/17 09:59 Dose: Not Given Potassium Chloride (K-Dur -) 20 meq PO DAILY [facility] Last Admin: 02/15/17 09:59 Dose: Not Given Zolpidem Tartrate (Ambien -) 5 mg PO HS PRN Last Admin: 02/10/17 21:10 Dose: 5 mg - Objective Vital Signs: Vital Signs Temperature 97.8 F 02/15/17 12:50 Pulse Rate 98 H 02/15/17 12:50 Respiratory Rate 20 02/15/17 12:50 Blood Pressure 157/88 02/15/17 12:50 O2 Sat by Pulse Oximetry (%) 95 02/15/17 12:50 Constitutional: Yes: Calm Eyes: Yes: Conjunctiva Clear HENT: Yes: Atraumatic Neck: Yes: Supple Cardiovascular: Yes: S1, S2 Respiratory: Yes: CTA Bilaterally Gastrointestinal: Yes: Normal Bowel Sounds, Soft Genitourinary: Yes: Fragoso Present Musculoskeletal: Yes: WNL Neurological: Yes: Other (sedated) Labs: CBC, BMP 02/15/17 06:00 02/15/17 06:00 INR, PTT INR 1.28 (0.82-1.09) H 02/15/17 06:00 Fibrinogen 668.0 mg/dL (238-498) H 02/15/17 06:00 Problem List - Problems (1) Back pain Code(s): M54.9 - DORSALGIA, UNSPECIFIED Qualifiers: Back pain location: low back pain Chronicity: acute Back pain laterality: bilateral Sciatica presence: without sciatica Qualified Code(s): M54.5 - Low back pain (2) Hypotension Code(s): I95.9 - HYPOTENSION, UNSPECIFIED Qualifiers: Hypotension type: unspecified hypotension type Qualified Code(s): I95.9 - Hypotension, unspecified (3) ALBERTO (acute kidney injury) Code(s): N17.9 - ACUTE KIDNEY FAILURE, UNSPECIFIED Assessment/Plan Current Medications Generic Name Dose Route Start Last Admin Trade Name Freq PRN Reason Stop Dose Admin Acetaminophen 650 mg 02/10/17 15:43 02/14/17 06:38 Tylenol - PO 650 mg Q4H PRN Administration FEVER OR PAIN Albuterol/Ipratropium 1 amp 02/11/17 14:36 02/13/17 10:51 Duoneb - NEB 1 amp Q6H PRN Administration SHORTNESS OF BREATH Alprazolam 0.25 mg 02/13/17 02:25 02/14/17 21:45 Xanax - PO 0.25 mg Q6H PRN Administration Diltiazem HCl 10 mg 02/12/17 07:18 02/13/17 12:13 Cardizem Injection - IVPUSH 10 mg Q4H PRN Administration TACHYCARDIA Docusate Sodium 100 mg 02/10/17 22:00 02/15/17 09:58 Colace - PO Not Given BID [facility] Gabapentin 100 mg 02/11/17 08:00 02/15/17 05:56 Neurontin - PO Not Given TID [facility] Heparin Sodium (Porcine) 1,000 unit 02/12/17 06:55 02/15/17 01:54 Heparin - IVPUSH 1,000 unit PRN PRN Administration Heparin Heparin Sodium (Porcine) 5,000 unit 02/12/17 06:55 02/14/17 11:09 Heparin - IVPUSH 5,000 unit PRN PRN Administration Heparin Hydromorphone HCl 1 mg 02/10/17 15:43 02/15/17 06:58 Dilaudid Injection - IVPB 1 mg Q4H PRN Administration PAIN Heparin Sodium (Porcine) 25, 500 mls @ 20 mls/hr 02/12/17 07:00 02/15/17 09:59 000 unit/ Sodium Chloride IV 33 mls/hr TITR [facility] Administration Protocol 1,000 UNIT/HR Cefazolin Sodium/Dextrose 50 mls @ 100 mls/hr 02/12/17 10:00 02/15/17 10:17 Ancef 2 Gm Premixed Ivpb - IVPB 100 mls/hr Q8H-IV [facility] Administration Lidocaine 1 patch 02/11/17 10:00 02/15/17 09:58 Lidoderm Patch - TP 1 patch DAILY [facility] Administration Metoprolol Tartrate 5 mg 02/12/17 23:16 02/15/17 01:55 Lopressor Injection - IVPUSH 5 mg Q4H PRN Administration Metoprolol Tartrate 50 mg 02/14/17 22:00 02/15/17 09:58 Lopressor - PO 50 mg BID [facility] Administration Miscellaneous 1 each 02/11/17 22:00 02/14/17 21:45 Lidoderm Patch Removal MC 1 each DAILY@2200 [facility] Administration Montelukast Sodium 10 mg 02/10/17 22:00 02/14/17 21:45 Singulair - PO 10 mg HS [facility] Administration Non-Formulary Medication 1 inh 02/10/17 22:00 Fluticasone/Salmeterol [Advair Hfa 230-21 Mcg Inhaler] PO BID [facility] Ondansetron HCl 4 mg 02/10/17 15:43 Zofran Injection IVPB Q6H PRN NAUSEA Oxycodone HCl 5 mg 02/10/17 15:43 02/14/17 21:44 Roxicodone - PO 5 mg Q4H PRN Administration PAIN Polyethylene Glycol 17 gm 02/14/17 22:00 02/15/17 09:59 Miralax (For Daily Use) - PO Not Given BID [facility] Potassium Chloride 20 meq 02/13/17 02:30 02/15/17 09:59 K-Dur - PO Not Given DAILY [facility] Zolpidem Tartrate 5 mg 02/10/17 17:39 02/10/17 21:10 Ambien - PO 5 mg HS PRN Administration Impression 1. ALBERTO 2. lactic acidosis 3. hypotension 4. hx of HTN 5. asthma 6. back pain 7. r/o dissection 8. sepsis 9. bacteremia Plan - renal function is improving - repeat labs in am - replace potassium - check mag and phos - follow up FABIOLA - follow cultures from 02/14. no growth to date - will follow Dr Traore
--- NOTE | 2017-02-15 13:46 | PN ---
Progress Note, Physician Chief Complaint: Patient had FABIOLA this AM. Lethargic due to sedation for the precedure. Still having back and left foot pain. On IV Antibiotics for MSSA bacteremia. On Exam: Vital Signs Temp 97.8 F 02/15/17 12:50 Pulse 98 H 02/15/17 12:50 Resp 20 02/15/17 12:50 BP 157/88 02/15/17 12:50 Pulse Ox 95 02/15/17 12:50 Intake & Output 02/14/17 02/15/17 02/15/17 23:59 11:59 23:59 Intake Total 135 662 Output Total 1100 650 Balance -965 12 Intake: IV 10 612 Heparin - 25,000 Unit In 412 Normal Saline - 495 ml @ 1,000 UNIT/HR 20 mls/hr IV TITR [facility] Rx#: [id number] LH #22 02/13/17 10 IVPB 50 Oral 125 Output: Urine 1100 650 Guzmán 1100 650 Other: Voiding Method Indwelling Catheter Bowel Movement No Lethargic Chest rhonchi Heart; regular Ext: Still erythema and swelling dorsum left foot. Abnormal Lab Results 02/14/17 02/15/17 02/15/17 17:10 00:30 06:00 WBC RBC MCV Plt Count Neutrophils % Lymphocytes % ESR INR PTT (Actin FS) 42.6 H 41.1 H 45.1 H Fibrinogen Potassium BUN C-Reactive Protein 02/15/17 02/15/17 02/15/17 06:00 06:00 06:00 WBC 20.0 H RBC 3.87 L MCV 99.7 H Plt Count 86 L D Neutrophils % 84.0 H Lymphocytes % 6.0 L ESR 98 H INR 1.28 H PTT (Actin FS) Fibrinogen 668.0 H Potassium 3.3 L BUN 44 H C-Reactive Protein 23.8 H D IMP: MSSA Sepsis with probable septic emboli A. Fib - NSR on anticoagulation Low Back and Left Foot Pain Hx: Hypertension Psoas inflammatory changes Cholelithiasis TAA and AAA Plan: Await report of FABIOLA F/U lab Anticoagulation Maintain guzmán cath due to pain when urinating and documenting I and O - Current Medication List Current Medications: Active Medications Acetaminophen (Tylenol -) 650 mg PO Q4H PRN PRN Reason: FEVER OR PAIN Last Admin: 02/14/17 06:38 Dose: 650 mg Albuterol/Ipratropium (Duoneb -) 1 amp NEB Q6H PRN PRN Reason: SHORTNESS OF BREATH Last Admin: 02/13/17 10:51 Dose: 1 amp Alprazolam (Xanax -) 0.25 mg PO Q6H PRN Last Admin: 02/14/17 21:45 Dose: 0.25 mg Diltiazem HCl (Cardizem Injection -) 10 mg IVPUSH Q4H PRN PRN Reason: TACHYCARDIA Last Admin: 02/13/17 12:13 Dose: 10 mg Docusate Sodium (Colace -) 100 mg PO BID [facility] Last Admin: 02/15/17 09:58 Dose: Not Given Gabapentin (Neurontin -) 100 mg PO TID [facility] Last Admin: 02/15/17 13:34 Dose: 100 mg Heparin Sodium (Porcine) (Heparin -) 1,000 unit IVPUSH PRN PRN PRN Reason: Heparin Last Admin: 02/15/17 01:54 Dose: 1,000 unit Heparin Sodium (Porcine) (Heparin -) 5,000 unit IVPUSH PRN PRN PRN Reason: Heparin Last Admin: 02/14/17 11:09 Dose: 5,000 unit Hydromorphone HCl (Dilaudid Injection -) 1 mg IVPB Q4H PRN PRN Reason: PAIN Last Admin: 02/15/17 13:31 Dose: 1 mg Heparin Sodium (Porcine) 25, (000 unit/ Sodium Chloride) 500 mls @ 20 mls/hr IV TITR [facility]; 1,000 UNIT/HR PRN Reason: Protocol Last Admin: 02/15/17 09:59 Dose: 33 mls/hr Cefazolin Sodium/Dextrose (Ancef 2 Gm Premixed Ivpb -) 50 mls @ 100 mls/hr IVPB Q8H-IV [facility] Last Admin: 02/15/17 10:17 Dose: 100 mls/hr Lidocaine (Lidoderm Patch -) 1 patch TP DAILY [facility] Last Admin: 02/15/17 09:58 Dose: 1 patch Metoprolol Tartrate (Lopressor Injection -) 5 mg IVPUSH Q4H PRN Last Admin: 02/15/17 01:55 Dose: 5 mg Metoprolol Tartrate (Lopressor -) 50 mg PO BID [facility] Last Admin: 02/15/17 09:58 Dose: 50 mg Miscellaneous (Lidoderm Patch Removal) 1 each MC DAILY@2200 [facility] Last Admin: 02/14/17 21:45 Dose: 1 each Montelukast Sodium (Singulair -) 10 mg PO HS [facility] Last Admin: 02/14/17 21:45 Dose: 10 mg Non-Formulary Medication (Fluticasone/Salmeterol [Advair Hfa 230-21 Mcg Inhaler] ) 1 inh PO BID [facility] Ondansetron HCl (Zofran Injection) 4 mg IVPB Q6H PRN PRN Reason: NAUSEA Oxycodone HCl (Roxicodone -) 5 mg PO Q4H PRN PRN Reason: PAIN Last Admin: 02/14/17 21:44 Dose: 5 mg Polyethylene Glycol (Miralax (For Daily Use) -) 17 gm PO BID [facility] Last Admin: 02/15/17 09:59 Dose: Not Given Potassium Chloride (K-Dur -) 20 meq PO BID [facility] Zolpidem Tartrate (Ambien -) 5 mg PO HS PRN Last Admin: 02/10/17 21:10 Dose: 5 mg - Objective Vital Signs: Vital Signs Temperature 97.8 F 02/15/17 12:50 Pulse Rate 98 H 02/15/17 12:50 Respiratory Rate 20 02/15/17 12:50 Blood Pressure 157/88 02/15/17 12:50 O2 Sat by Pulse Oximetry (%) 95 02/15/17 12:50 Labs: CBC, BMP 02/15/17 06:00 02/15/17 06:00 INR, PTT INR 1.28 (0.82-1.09) H 02/15/17 06:00 Fibrinogen 668.0 mg/dL (238-498) H 02/15/17 06:00 Problem List - Problems (1) Atrial fibrillation with rapid ventricular response Code(s): I48.91 - UNSPECIFIED ATRIAL FIBRILLATION (2) Back pain Code(s): M54.9 - DORSALGIA, UNSPECIFIED Qualifiers: Back pain location: low back pain Chronicity: acute Back pain laterality: bilateral Sciatica presence: without sciatica Qualified Code(s): M54.5 - Low back pain (3) Sepsis Code(s): A41.9 - SEPSIS, UNSPECIFIED ORGANISM (4) ALBERTO (acute kidney injury) Code(s): N17.9 - ACUTE KIDNEY FAILURE, UNSPECIFIED (5) Hypotension Code(s): I95.9 - HYPOTENSION, UNSPECIFIED Qualifiers: Hypotension type: unspecified hypotension type Qualified Code(s): I95.9 - Hypotension, unspecified (6) Lactic acidosis Code(s): E87.2 - ACIDOSIS (7) Sepsis associated hypotension Code(s): A41.9 - SEPSIS, UNSPECIFIED ORGANISM (8) AAA (abdominal aortic aneurysm) without rupture Code(s): I71.4 - ABDOMINAL AORTIC ANEURYSM, WITHOUT RUPTURE (9) Pain Code(s): R52 - PAIN, UNSPECIFIED (10) Foot pain, left Code(s): M79.672 - PAIN IN LEFT FOOT
--- NOTE | 2017-02-15 14:42 | PN ---
Progress Note, Physician History of Present Illness: S/P FABIOLA Verbal report-no vegetations Lethargic Afebrile WBC increased BC (02/14) prelim no growth - Current Medication List Current Medications: Active Medications Acetaminophen (Tylenol -) 650 mg PO Q4H PRN PRN Reason: FEVER OR PAIN Last Admin: 02/14/17 06:38 Dose: 650 mg Albuterol/Ipratropium (Duoneb -) 1 amp NEB Q6H PRN PRN Reason: SHORTNESS OF BREATH Last Admin: 02/13/17 10:51 Dose: 1 amp Alprazolam (Xanax -) 0.25 mg PO Q6H PRN Last Admin: 02/14/17 21:45 Dose: 0.25 mg Diltiazem HCl (Cardizem Injection -) 10 mg IVPUSH Q4H PRN PRN Reason: TACHYCARDIA Last Admin: 02/13/17 12:13 Dose: 10 mg Docusate Sodium (Colace -) 100 mg PO BID [facility] Last Admin: 02/15/17 09:58 Dose: Not Given Gabapentin (Neurontin -) 100 mg PO TID [facility] Last Admin: 02/15/17 13:34 Dose: 100 mg Heparin Sodium (Porcine) (Heparin -) 1,000 unit IVPUSH PRN PRN PRN Reason: Heparin Last Admin: 02/15/17 01:54 Dose: 1,000 unit Heparin Sodium (Porcine) (Heparin -) 5,000 unit IVPUSH PRN PRN PRN Reason: Heparin Last Admin: 02/14/17 11:09 Dose: 5,000 unit Hydromorphone HCl (Dilaudid Injection -) 1 mg IVPB Q4H PRN PRN Reason: PAIN Last Admin: 02/15/17 13:31 Dose: 1 mg Heparin Sodium (Porcine) 25, (000 unit/ Sodium Chloride) 500 mls @ 20 mls/hr IV TITR [facility]; 1,000 UNIT/HR PRN Reason: Protocol Last Admin: 02/15/17 09:59 Dose: 33 mls/hr Cefazolin Sodium/Dextrose (Ancef 2 Gm Premixed Ivpb -) 50 mls @ 100 mls/hr IVPB Q8H-IV [facility] Last Admin: 02/15/17 10:17 Dose: 100 mls/hr Lidocaine (Lidoderm Patch -) 1 patch TP DAILY [facility] Last Admin: 02/15/17 09:58 Dose: 1 patch Metoprolol Tartrate (Lopressor Injection -) 5 mg IVPUSH Q4H PRN Last Admin: 02/15/17 01:55 Dose: 5 mg Metoprolol Tartrate (Lopressor -) 50 mg PO BID [facility] Last Admin: 02/15/17 09:58 Dose: 50 mg Miscellaneous (Lidoderm Patch Removal) 1 each MC DAILY@2200 [facility] Last Admin: 02/14/17 21:45 Dose: 1 each Montelukast Sodium (Singulair -) 10 mg PO HS [facility] Last Admin: 02/14/17 21:45 Dose: 10 mg Non-Formulary Medication (Fluticasone/Salmeterol [Advair Hfa 230-21 Mcg Inhaler] ) 1 inh PO BID [facility] Ondansetron HCl (Zofran Injection) 4 mg IVPB Q6H PRN PRN Reason: NAUSEA Oxycodone HCl (Roxicodone -) 5 mg PO Q4H PRN PRN Reason: PAIN Last Admin: 02/14/17 21:44 Dose: 5 mg Polyethylene Glycol (Miralax (For Daily Use) -) 17 gm PO BID [facility] Last Admin: 02/15/17 09:59 Dose: Not Given Potassium Chloride (K-Dur -) 20 meq PO BID [facility] Zolpidem Tartrate (Ambien -) 5 mg PO HS PRN Last Admin: 02/10/17 21:10 Dose: 5 mg - Objective Vital Signs: Vital Signs Temperature 97.8 F 02/15/17 12:50 Pulse Rate 98 H 02/15/17 12:50 Respiratory Rate 20 02/15/17 12:50 Blood Pressure 157/88 02/15/17 12:50 O2 Sat by Pulse Oximetry (%) 95 02/15/17 12:50 Constitutional: Yes: No Distress Cardiovascular: Yes: Regular Rate and Rhythm, S1, S2 Respiratory: Yes: CTA Bilaterally Gastrointestinal: Yes: Normal Bowel Sounds, Soft, Abdomen, Obese Extremities: Yes: Other (+ erythema, dorsum L foot) Labs: CBC, BMP 02/15/17 06:00 02/15/17 06:00 INR, PTT INR 1.28 (0.82-1.09) H 02/15/17 06:00 Fibrinogen 668.0 mg/dL (238-498) H 02/15/17 06:00 Assessment/Plan MSSA bacteremia/possible endocarditis Possible early psoas abscess Possible cellulitis L foot Leukocytosis- worsened Thrombocytopenia secondary to sepsis Azotemia- resolved Check repeat BC Continue cefazolin
[2017-02-15] MEDS: oxyCODONE HCL 5 MG TABLET PO PRN (21:08)
[2017-02-15] MEDS: MONTELUKAST NA 10 MG TABLET PO SCH (21:08)
[2017-02-15] MEDS: ALPRAZolam 0.25 MG TABLET PO PRN (21:09)
[2017-02-15] MEDS: LIDOCAINE PATCH REMOVAL MC SCH (21:10)
[2017-02-15] MEDS: ALBUTEROL SO4 2.5/IPRATROPIUM 0.5 INH SOL 3 ML VIAL.NEB. NEB PRN (23:52)
[2017-02-16] MEDS: HYDROmorphone HCL CARPU-JECT 1 MG/1 ML DISP.SYRIN IVPB PRN ×2 (00:12→16:41)
[2017-02-16] MEDS ORDERED: PT OWN MED DRAWER 7, Y5N ONE ×4 (02:25→18:49)
[2017-02-16] MEDS: CEFAZOLIN 2 GM/D5W 50 ML IVPB SCH ×3 (02:26→18:54)
[2017-02-16] MEDS: HEPARIN NA (PORCINE) 5,000 UNITS/ML 1ML VIAL IVPUSH PRN (05:00)
[2017-02-16] MEDS: HEPARIN - 25,000 UNIT in SODIUM CHLORIDE 495 ML IV SCH ×2 (05:02→22:19)
[2017-02-16] MEDS: oxyCODONE HCL 5 MG TABLET PO PRN ×2 (05:03→22:17)
[2017-02-16] MEDS: ALBUTEROL SO4 2.5/IPRATROPIUM 0.5 INH SOL 3 ML VIAL.NEB. NEB PRN (05:13)
[2017-02-16] MEDS: GABAPENTIN 100 MG CAPSULE (FP) PO SCH ×3 (05:36→22:20)
[2017-02-16] MEDS: METOPROLOL TARTRATE 5 MG/5 ML VIAL IVPUSH PRN (05:48)
[2017-02-16 07:23] LABS: MCHC 33.5 g/dl (32.0-35.9); MEAN CELL VOLUME 101.3 fl (80-96); MEAN PLT VOLUME 9.3 fl (7.5-11.1); PLATELET COUNT 128 K/MM3 (134-434); RDW 14.8 % (11.9-15.9); WHITE BLOOD COUNT 21.2 K/mm3 (4.0-10.0)
[2017-02-16 08:25] LABS: CALCIUM 8.8 mg/dL (8.5-10.1); COCKROFT - GAULT 89.16; CREATININE 0.9 mg/dL (0.7-1.3); MAGNESIUM 2.2 mg/dL (1.8-2.4); PHOSPHOROUS 2.6 mg/dL (2.5-4.9)
--- NOTE | 2017-02-16 08:38 | PN ---
Progress Note (short form) - Note Progress Note: Patient lethargic but occ delirious during the nite shift. FABIOLA: No vegetations. Still with higher WBC 21,000 but platelets better. Pain: mostly left foot and back. On Exam: Vital Signs Period Temp Pulse Resp BP Sys/Cat Pulse Ox Last 24 Hr 97.5 F-99 F 97-104 18-20 135-168/74-114 94-98 Vital Signs Temp 99 F 02/16/17 01:46 Pulse 103 H 02/16/17 05:48 Resp 18 02/16/17 01:46 BP 166/114 02/16/17 05:48 Pulse Ox 94 L 02/15/17 21:21 Intake & Output 02/15/17 02/15/17 02/16/17 11:59 23:59 11:59 Intake Total 662 35 402 Output Total 650 1250 550 Balance 121 -148 Intake: IV 612 10 352 Heparin - 25,000 Unit In 412 352 Normal Saline - 495 ml @ 1,000 UNIT/HR 20 mls/hr IV TITR [facility] Rx#: [id number] LH #22 02/13/17 10 IVPB 50 50 Oral 25 Output: Urine 650 1250 550 Fragoso 650 1250 550 Other: Voiding Method Indwelling Catheter Indwelling Catheter Bowel Movement No Lethargic Pupils equal Chest: Rhonchi And : Soft Left foot: Still erythema and tender dorsum Blister right buttock Abnormal Lab Results 02/15/17 02/15/17 02/15/17 06:00 06:00 19:40 WBC RBC MCV Plt Count Neutrophils % 84.0 H Lymphocytes % 6.0 L ESR 98 H INR 1.28 H PTT (Actin FS) 43.8 H Fibrinogen 668.0 H Sodium Potassium Chloride BUN 02/16/17 02/16/17 02/16/17 04:00 06:20 06:20 WBC 21.2 H RBC 3.82 L MCV 101.3 H Plt Count 128 L D Neutrophils % Lymphocytes % ESR INR PTT (Actin FS) 46.8 H Fibrinogen Sodium 147 H Potassium 3.2 L Chloride 108 H BUN 46 H IMP: MSSA Sepsis Hypertension A. Fib now in NSR Probable septic Emboli Lethargy ? Pain Meds and sepsis Hypokalemia Plan: CAT Head ?Drain Blister right Buttock K replacement F/U lab and ID MD's Plan Problem List - Problems (1) Atrial fibrillation with rapid ventricular response Code(s): I48.91 - UNSPECIFIED ATRIAL FIBRILLATION (2) Back pain Code(s): M54.9 - DORSALGIA, UNSPECIFIED Qualifiers: Back pain location: low back pain Chronicity: acute Back pain laterality: bilateral Sciatica presence: without sciatica Qualified Code(s): M54.5 - Low back pain (3) Sepsis Code(s): A41.9 - SEPSIS, UNSPECIFIED ORGANISM (4) ALBERTO (acute kidney injury) Code(s): N17.9 - ACUTE KIDNEY FAILURE, UNSPECIFIED (5) Hypotension Code(s): I95.9 - HYPOTENSION, UNSPECIFIED Qualifiers: Hypotension type: unspecified hypotension type Qualified Code(s): I95.9 - Hypotension, unspecified (6) Lactic acidosis Code(s): E87.2 - ACIDOSIS (7) Sepsis associated hypotension Code(s): A41.9 - SEPSIS, UNSPECIFIED ORGANISM (8) AAA (abdominal aortic aneurysm) without rupture Code(s): I71.4 - ABDOMINAL AORTIC ANEURYSM, WITHOUT RUPTURE (9) Pain Code(s): R52 - PAIN, UNSPECIFIED (10) Foot pain, left Code(s): M79.672 - PAIN IN LEFT FOOT
[2017-02-16 08:58] LABS: METAMYELOCYTE 1 % (0-2)
[2017-02-16 08:59] LABS: PLATELET ESTIMATE DECREASED (NORMAL)
[2017-02-16] MEDS ORDERED: POTASSIUM CHLORIDE 20 MEQ in DEXTROSE 5%-WATER - 1,000 ML IVPB SCH (09:00)
[2017-02-16] MEDS: LIDOCAINE 5% TOPICAL PATCH TP SCH (09:10)
[2017-02-16] MEDS: METOPROLOL TARTRATE 50 MG TABLET (FP) PO SCH ×2 (09:11→22:18)
[2017-02-16] MEDS: POLYETHYLENE GLYCOL 3350 119 GM BTL PO SCH ×2 (09:11→22:20)
[2017-02-16] MEDS: DOCUSATE SODIUM 100 MG CAPSULE (FP) PO SCH ×2 (09:11→22:19)
[2017-02-16] MEDS: POTASSIUM CHLORIDE TABS 20 MEQ TABLET.ER (FP) PO SCH ×2 (09:11→22:18)
--- NOTE | 2017-02-16 10:39 | PN ---
Progress Note, Physician Chief Complaint: ID Confused Ill appearing Back pain severe Cefazolin 2 grs q 8 maximal dose - Current Medication List Current Medications: Active Medications Acetaminophen (Tylenol -) 650 mg PO Q4H PRN PRN Reason: FEVER OR PAIN Last Admin: 02/14/17 06:38 Dose: 650 mg Albuterol/Ipratropium (Duoneb -) 1 amp NEB Q6H PRN PRN Reason: SHORTNESS OF BREATH Last Admin: 02/16/17 05:13 Dose: 1 amp Alprazolam (Xanax -) 0.25 mg PO Q6H PRN Last Admin: 02/15/17 21:09 Dose: 0.25 mg Diltiazem HCl (Cardizem Injection -) 10 mg IVPUSH Q4H PRN PRN Reason: TACHYCARDIA Last Admin: 02/13/17 12:13 Dose: 10 mg Diltiazem HCl (Cardizem Cd -) 180 mg PO DAILY DOMITILA Last Admin: 02/16/17 09:11 Dose: 180 mg Docusate Sodium (Colace -) 100 mg PO BID DOM[facility]A Last Admin: 02/16/17 09:11 Dose: 100 mg Gabapentin (Neurontin -) 100 mg PO TID [facility] Last Admin: 02/16/17 05:36 Dose: 100 mg Heparin Sodium (Porcine) (Heparin -) 1,000 unit IVPUSH PRN PRN PRN Reason: Heparin Last Admin: 02/16/17 05:00 Dose: 1,000 unit Heparin Sodium (Porcine) (Heparin -) 5,000 unit IVPUSH PRN PRN PRN Reason: Heparin Last Admin: 02/14/17 11:09 Dose: 5,000 unit Hydromorphone HCl (Dilaudid Injection -) 1 mg IVPB Q4H PRN PRN Reason: PAIN Last Admin: 02/16/17 00:12 Dose: 1 mg Heparin Sodium (Porcine) 25, (000 unit/ Sodium Chloride) 500 mls @ 20 mls/hr IV TITR DOMITILA; 1,000 UNIT/HR PRN Reason: Protocol Last Admin: 02/16/17 05:02 Dose: 37 mls/hr Cefazolin Sodium/Dextrose (Ancef 2 Gm Premixed Ivpb -) 50 mls @ 100 mls/hr IVPB Q8H-IV DOMITILA Last Admin: 02/16/17 09:10 Dose: 100 mls/hr Potassium Chloride 20 meq/ (Dextrose) 1,010 mls @ 42 mls/hr IVPB Q24H [facility] Last Admin: 02/16/17 09:21 Dose: 42 mls/hr Lidocaine (Lidoderm Patch -) 1 patch TP DAILY [facility] Last Admin: 02/16/17 09:10 Dose: 1 patch Metoprolol Tartrate (Lopressor Injection -) 5 mg IVPUSH Q4H PRN Last Admin: 02/16/17 05:48 Dose: 5 mg Metoprolol Tartrate (Lopressor -) 50 mg PO BID [facility] Last Admin: 02/16/17 09:11 Dose: 50 mg Miscellaneous (Lidoderm Patch Removal) 1 each MC DAILY@2200 [facility] Last Admin: 02/15/17 21:10 Dose: 1 each Montelukast Sodium (Singulair -) 10 mg PO HS [facility] Last Admin: 02/15/17 21:08 Dose: 10 mg Non-Formulary Medication (Fluticasone/Salmeterol [Advair Hfa 230-21 Mcg Inhaler] ) 1 inh PO BID [facility] Ondansetron HCl (Zofran Injection) 4 mg IVPB Q6H PRN PRN Reason: NAUSEA Oxycodone HCl (Roxicodone -) 5 mg PO Q4H PRN PRN Reason: PAIN Last Admin: 02/16/17 05:03 Dose: 5 mg Polyethylene Glycol (Miralax (For Daily Use) -) 17 gm PO BID [facility] Last Admin: 02/16/17 09:11 Dose: 17 gm Potassium Chloride (K-Dur -) 20 meq PO BID [facility] Last Admin: 02/16/17 09:11 Dose: 20 meq Zolpidem Tartrate (Ambien -) 5 mg PO HS PRN Last Admin: 02/10/17 21:10 Dose: 5 mg - Objective Vital Signs: Vital Signs Temperature 99 F 02/16/17 01:46 Pulse Rate 103 H 02/16/17 05:48 Respiratory Rate 18 02/16/17 01:46 Blood Pressure 166/114 02/16/17 05:48 O2 Sat by Pulse Oximetry (%) 94 L 02/15/17 21:21 Constitutional: Yes: Moderate Distress, Other (Confused) Neck: Yes: WNL, Supple Cardiovascular: Yes: Regular Rate and Rhythm, S1, S2. No: Murmur Respiratory: Yes: WNL, Regular, CTA Bilaterally Gastrointestinal: Yes: WNL, Normal Bowel Sounds, Soft. No: Tenderness, Tenderness, Epigastrium Edema: No Integumentary: Yes: Other (Blistering rash right flank) Labs: CBC, BMP 02/16/17 06:20 02/16/17 06:20 INR, PTT INR 1.28 (0.82-1.09) H 02/15/17 06:00 Fibrinogen 668.0 mg/dL (238-498) H 02/15/17 06:00 Assessment/Plan Microbiology 02/12/17 10:58 Blood - Peripheral Venous Blood Culture - Final Staphylococcus Aureus 02/12/17 10:48 Blood - Peripheral Venous Blood Culture - Final Staphylococcus Aureus 02/10/17 20:30 Blood - Peripheral Venous Blood Culture - Final Staphylococcus Aureus 02/10/17 20:25 Blood - Peripheral Venous Blood Culture - Final Staphylococcus Aureus 02/14/17 11:15 Blood - Peripheral Venous Blood Culture - Preliminary Presumptive Mssa (Pbp2a Neg) Laboratory Tests 02/15/17 02/16/17 02/16/17 06:00 06:20 06:20 WBC 21.2 H Hgb 13.0 Hct 38.7 MCV 101.3 H Plt Count 128 L D ESR 98 H BUN 46 H Creatinine 0.9 Assessment MSSA bacteremia NO evidence for endocarditits Patent foramen ovale noted 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 Persistent WBC elevation suggests focus of infection I would guess the psoas muscle. Additionally still bacteremic as of 02/14. INcidentally he has shingles that his rash. Confusion ? stroke related Plan Continue Cefazolin Repeat blood cultures Discuss with Dr Guardado drainage of collection psoas though no discrete abscess seen Add Valtrex [address] Contact isolation Krupa LOPEZ
[2017-02-16] MEDS ORDERED: valACYclovir HCL 1000 MG TABLET PO SCH (10:45)
[2017-02-16] MEDS ORDERED: valACYclovir HCL 500 MG TABLET (FP) PO SCH (10:59)
--- NOTE | 2017-02-16 11:35 | PN ---
Progress Note, Physician History of Present Illness: Pt seen and examined at bedside. Pt complains of back pain and is not talkative. - Current Medication List Current Medications: Active Medications Acetaminophen (Tylenol -) 650 mg PO Q4H PRN PRN Reason: FEVER OR PAIN Last Admin: 02/14/17 06:38 Dose: 650 mg Albuterol/Ipratropium (Duoneb -) 1 amp NEB Q6H PRN PRN Reason: SHORTNESS OF BREATH Last Admin: 02/16/17 05:13 Dose: 1 amp Alprazolam (Xanax -) 0.25 mg PO Q6H PRN Last Admin: 02/15/17 21:09 Dose: 0.25 mg Diltiazem HCl (Cardizem Injection -) 10 mg IVPUSH Q4H PRN PRN Reason: TACHYCARDIA Last Admin: 02/13/17 12:13 Dose: 10 mg Diltiazem HCl (Cardizem Cd -) 180 mg PO DAILY [facility] Last Admin: 02/16/17 09:11 Dose: 180 mg Docusate Sodium (Colace -) 100 mg PO BID [facility] Last Admin: 02/16/17 09:11 Dose: 100 mg Gabapentin (Neurontin -) 100 mg PO TID [facility] Last Admin: 02/16/17 05:36 Dose: 100 mg Heparin Sodium (Porcine) (Heparin -) 1,000 unit IVPUSH PRN PRN PRN Reason: Heparin Last Admin: 02/16/17 05:00 Dose: 1,000 unit Heparin Sodium (Porcine) (Heparin -) 5,000 unit IVPUSH PRN PRN PRN Reason: Heparin Last Admin: 02/14/17 11:09 Dose: 5,000 unit Hydromorphone HCl (Dilaudid Injection -) 1 mg IVPB Q4H PRN PRN Reason: PAIN Last Admin: 02/16/17 00:12 Dose: 1 mg Heparin Sodium (Porcine) 25, (000 unit/ Sodium Chloride) 500 mls @ 20 mls/hr IV TITR DOMITILA; 1,000 UNIT/HR PRN Reason: Protocol Last Admin: 02/16/17 05:02 Dose: 37 mls/hr Cefazolin Sodium/Dextrose (Ancef 2 Gm Premixed Ivpb -) 50 mls @ 100 mls/hr IVPB Q8H-IV [facility] Last Admin: 02/16/17 09:10 Dose: 100 mls/hr Potassium Chloride 20 meq/ (Dextrose) 1,010 mls @ 42 mls/hr IVPB Q24H [facility] Last Admin: 02/16/17 09:21 Dose: 42 mls/hr Lidocaine (Lidoderm Patch -) 1 patch TP DAILY [facility] Last Admin: 02/16/17 09:10 Dose: 1 patch Metoprolol Tartrate (Lopressor Injection -) 5 mg IVPUSH Q4H PRN Last Admin: 02/16/17 05:48 Dose: 5 mg Metoprolol Tartrate (Lopressor -) 50 mg PO BID [facility] Last Admin: 02/16/17 09:11 Dose: 50 mg Miscellaneous (Lidoderm Patch Removal) 1 each MC DAILY@2200 [facility] Last Admin: 02/15/17 21:10 Dose: 1 each Montelukast Sodium (Singulair -) 10 mg PO HS [facility] Last Admin: 02/15/17 21:08 Dose: 10 mg Non-Formulary Medication (Fluticasone/Salmeterol [Advair Hfa 230-21 Mcg Inhaler] ) 1 inh PO BID [facility] Ondansetron HCl (Zofran Injection) 4 mg IVPB Q6H PRN PRN Reason: NAUSEA Oxycodone HCl (Roxicodone -) 5 mg PO Q4H PRN PRN Reason: PAIN Last Admin: 02/16/17 05:03 Dose: 5 mg Polyethylene Glycol (Miralax (For Daily Use) -) 17 gm PO BID [facility] Last Admin: 02/16/17 09:11 Dose: 17 gm Potassium Chloride (K-Dur -) 20 meq PO BID [facility] Last Admin: 02/16/17 09:11 Dose: 20 meq Valacyclovir HCl (Valtrex -) 1,000 mg PO BID [facility] Zolpidem Tartrate (Ambien -) 5 mg PO HS PRN Last Admin: 02/10/17 21:10 Dose: 5 mg - Objective Vital Signs: Vital Signs Temperature 99 F 02/16/17 01:46 Pulse Rate 103 H 02/16/17 05:48 Respiratory Rate 18 02/16/17 01:46 Blood Pressure 166/114 02/16/17 05:48 O2 Sat by Pulse Oximetry (%) 94 L 02/15/17 21:21 Constitutional: Yes: Anxious Eyes: Yes: Conjunctiva Clear HENT: Yes: Atraumatic Neck: Yes: Supple Cardiovascular: Yes: S1, S2 Respiratory: Yes: On Nasal O2, Tachypnea Gastrointestinal: Yes: Soft, Abdomen, Obese Genitourinary: Yes: Fragoso Present Musculoskeletal: Yes: Muscle Weakness Edema: No Neurological: Yes: Confusion Labs: CBC, BMP 02/16/17 06:20 02/16/17 06:20 INR, PTT INR 1.28 (0.82-1.09) H 02/15/17 06:00 Fibrinogen 668.0 mg/dL (238-498) H 02/15/17 06:00 - ....Imaging Other: Report Reviewed (fabiola shows PFO) Problem List - Problems (1) Back pain Code(s): M54.9 - DORSALGIA, UNSPECIFIED Qualifiers: Back pain location: low back pain Chronicity: acute Back pain laterality: bilateral Sciatica presence: without sciatica Qualified Code(s): M54.5 - Low back pain (2) Hypotension Code(s): I95.9 - HYPOTENSION, UNSPECIFIED Qualifiers: Hypotension type: unspecified hypotension type Qualified Code(s): I95.9 - Hypotension, unspecified (3) ALBERTO (acute kidney injury) Code(s): N17.9 - ACUTE KIDNEY FAILURE, UNSPECIFIED Assessment/Plan Current Medications Generic Name Dose Route Start Last Admin Trade Name Freq PRN Reason Stop Dose Admin Acetaminophen 650 mg 02/10/17 15:43 02/14/17 06:38 Tylenol - PO 650 mg Q4H PRN Administration FEVER OR PAIN Albuterol/Ipratropium 1 amp 02/11/17 14:36 02/16/17 05:13 Duoneb - NEB 1 amp Q6H PRN Administration SHORTNESS OF BREATH Alprazolam 0.25 mg 02/13/17 02:25 02/15/17 21:09 Xanax - PO 0.25 mg Q6H PRN Administration Diltiazem HCl 10 mg 02/12/17 07:18 02/13/17 12:13 Cardizem Injection - IVPUSH 10 mg Q4H PRN Administration TACHYCARDIA Diltiazem HCl 180 mg 02/16/17 10:00 02/16/17 09:11 Cardizem Cd - PO 180 mg DAILY DOMITILA Administration Docusate Sodium 100 mg 02/10/17 22:00 02/16/17 09:11 Colace - PO 100 mg BID [facility] Administration Gabapentin 100 mg 02/11/17 08:00 02/16/17 05:36 Neurontin - PO 100 mg TID [facility] Administration Heparin Sodium (Porcine) 1,000 unit 02/12/17 06:55 02/16/17 05:00 Heparin - IVPUSH 1,000 unit PRN PRN Administration Heparin Heparin Sodium (Porcine) 5,000 unit 02/12/17 06:55 02/14/17 11:09 Heparin - IVPUSH 5,000 unit PRN PRN Administration Heparin Hydromorphone HCl 1 mg 02/10/17 15:43 02/16/17 00:12 Dilaudid Injection - IVPB 1 mg Q4H PRN Administration PAIN Heparin Sodium (Porcine) 25, 500 mls @ 20 mls/hr 02/12/17 07:00 02/16/17 05:02 000 unit/ Sodium Chloride IV 37 mls/hr TITR DOM[facility]ILA Administration Protocol 1,000 UNIT/HR Cefazolin Sodium/Dextrose 50 mls @ 100 mls/hr 02/12/17 10:00 02/16/17 09:10 Ancef 2 Gm Premixed Ivpb - IVPB 100 mls/hr Q8H-IV [facility] Administration Potassium Chloride 20 meq/ 1,010 mls @ 42 mls/hr 02/16/17 09:00 02/16/17 09:21 Dextrose IVPB 42 mls/hr Q24H [facility] Administration Lidocaine 1 patch 02/11/17 10:00 02/16/17 09:10 Lidoderm Patch - TP 1 patch DAILY [facility] Administration Metoprolol Tartrate 5 mg 02/12/17 23:16 02/16/17 05:48 Lopressor Injection - IVPUSH 5 mg Q4H PRN Administration Metoprolol Tartrate 50 mg 02/14/17 22:00 02/16/17 09:11 Lopressor - PO 50 mg BID [facility] Administration Miscellaneous 1 each 02/11/17 22:00 02/15/17 21:10 Lidoderm Patch Removal MC 1 each DAILY@2200 [facility] Administration Montelukast Sodium 10 mg 02/10/17 22:00 02/15/17 21:08 Singulair - PO 10 mg HS [facility] Administration Non-Formulary Medication 1 inh 05/25/17 22:00 Fluticasone/Salmeterol [Advair Hfa 230-21 Mcg Inhaler] PO BID [facility] Ondansetron HCl 4 mg 02/10/17 15:43 Zofran Injection IVPB Q6H PRN NAUSEA Oxycodone HCl 5 mg 02/10/17 15:43 02/16/17 05:03 Roxicodone - PO 5 mg Q4H PRN Administration PAIN Polyethylene Glycol 17 gm 02/14/17 22:00 02/16/17 09:11 Miralax (For Daily Use) - PO 17 gm BID [facility] Administration Potassium Chloride 20 meq 02/15/17 22:00 02/16/17 09:11 K-Dur - PO 20 meq BID [facility] Administration Potassium Chloride 40 meq 02/16/17 11:29 K-Dur - PO 02/16/17 11:30 ONCE ONE Valacyclovir HCl 1,000 mg 02/16/17 11:00 Valtrex - PO BID [facility] Zolpidem Tartrate 5 mg 02/10/17 17:39 02/10/17 21:10 Ambien - PO 5 mg HS PRN Administration Laboratory Tests 02/16/17 06:20 Potassium 3.2 L Phosphorus 2.6 Magnesium 2.2 Impression 1. ALBERTO 2. lactic acidosis 3. hypotension 4. hx of HTN 5. asthma 6. back pain 7. r/o dissection 8. sepsis 9. bacteremia 10. PFO Plan - replace potassium - gentle hydration with hypotonic fluid - one of the bottles is positive from 02/14 - ID follow up - FABIOLA report reviewed, no obvious vegitations, there was a PFO - mag is normal range - will follow Dr Traore
[2017-02-16] MEDS ORDERED: POTASSIUM CHLORIDE TABS 20 MEQ TABLET.ER (FP) PO ONE (12:00)
[2017-02-16] MEDS ORDERED: HEPARIN INFUSION - 500 ML IVPB ONE (12:31)
[2017-02-16] MEDS: valACYclovir HCL 500 MG TABLET (FP) PO SCH ×2 (13:24→22:17)
--- NOTE | 2017-02-16 13:32 | PN ---
Progress Note, Physician History of Present Illness: pulmonary lethargic,confused,dyspneic,+mild congestion,. echo no evidence of endocarditis - Current Medication List Current Medications: Active Medications Acetaminophen (Tylenol -) 650 mg PO Q4H PRN PRN Reason: FEVER OR PAIN Last Admin: 02/14/17 06:38 Dose: 650 mg Albuterol/Ipratropium (Duoneb -) 1 amp NEB Q6H PRN PRN Reason: SHORTNESS OF BREATH Last Admin: 02/16/17 05:13 Dose: 1 amp Alprazolam (Xanax -) 0.25 mg PO Q6H PRN Last Admin: 02/15/17 21:09 Dose: 0.25 mg Diltiazem HCl (Cardizem Injection -) 10 mg IVPUSH Q4H PRN PRN Reason: TACHYCARDIA Last Admin: 02/13/17 12:13 Dose: 10 mg Diltiazem HCl (Cardizem Cd -) 180 mg PO DAILY [facility] Last Admin: 02/16/17 09:11 Dose: 180 mg Docusate Sodium (Colace -) 100 mg PO BID [facility] Last Admin: 02/16/17 09:11 Dose: 100 mg Gabapentin (Neurontin -) 100 mg PO TID [facility] Last Admin: 02/16/17 13:24 Dose: 100 mg Heparin Sodium (Porcine) (Heparin -) 1,000 unit IVPUSH PRN PRN PRN Reason: Heparin Last Admin: 02/16/17 05:00 Dose: 1,000 unit Heparin Sodium (Porcine) (Heparin -) 5,000 unit IVPUSH PRN PRN PRN Reason: Heparin Last Admin: 02/14/17 11:09 Dose: 5,000 unit Hydromorphone HCl (Dilaudid Injection -) 1 mg IVPB Q4H PRN PRN Reason: PAIN Last Admin: 02/16/17 00:12 Dose: 1 mg Heparin Sodium (Porcine) 25, (000 unit/ Sodium Chloride) 500 mls @ 20 mls/hr IV TITR [facility]ILA; 1,000 UNIT/HR PRN Reason: Protocol Last Admin: 02/16/17 05:02 Dose: 37 mls/hr Cefazolin Sodium/Dextrose (Ancef 2 Gm Premixed Ivpb -) 50 mls @ 100 mls/hr IVPB Q8H-IV [facility] Last Admin: 02/16/17 09:10 Dose: 100 mls/hr Potassium Chloride 20 meq/ (Dextrose) 1,010 mls @ 42 mls/hr IVPB Q24H [facility] Last Admin: 02/16/17 09:21 Dose: 42 mls/hr Lidocaine (Lidoderm Patch -) 1 patch TP DAILY [facility] Last Admin: 02/16/17 09:10 Dose: 1 patch Metoprolol Tartrate (Lopressor Injection -) 5 mg IVPUSH Q4H PRN Last Admin: 02/16/17 05:48 Dose: 5 mg Metoprolol Tartrate (Lopressor -) 50 mg PO BID [facility] Last Admin: 02/16/17 09:11 Dose: 50 mg Miscellaneous (Lidoderm Patch Removal) 1 each MC DAILY@2200 [facility] Last Admin: 02/15/17 21:10 Dose: 1 each Montelukast Sodium (Singulair -) 10 mg PO HS [facility] Last Admin: 02/15/17 21:08 Dose: 10 mg Non-Formulary Medication (Fluticasone/Salmeterol [Advair Hfa 230-21 Mcg Inhaler] ) 1 inh PO BID [facility] Ondansetron HCl (Zofran Injection) 4 mg IVPB Q6H PRN PRN Reason: NAUSEA Oxycodone HCl (Roxicodone -) 5 mg PO Q4H PRN PRN Reason: PAIN Last Admin: 02/16/17 05:03 Dose: 5 mg Polyethylene Glycol (Miralax (For Daily Use) -) 17 gm PO BID [facility] Last Admin: 02/16/17 09:11 Dose: 17 gm Potassium Chloride (K-Dur -) 20 meq PO BID [facility] Last Admin: 02/16/17 09:11 Dose: 20 meq Valacyclovir HCl (Valtrex -) 1,000 mg PO BID [facility] Last Admin: 02/16/17 13:24 Dose: 1,000 mg Zolpidem Tartrate (Ambien -) 5 mg PO HS PRN Last Admin: 02/10/17 21:10 Dose: 5 mg - Objective Vital Signs: Vital Signs Temperature 98.9 F 02/16/17 09:00 Pulse Rate 104 H 02/16/17 09:00 Respiratory Rate 18 02/16/17 09:00 Blood Pressure 161/93 02/16/17 09:00 O2 Sat by Pulse Oximetry (%) 95 02/16/17 09:00 Constitutional: Yes: Well Nourished, Other (confused) Eyes: Yes: WNL HENT: Yes: WNL Neck: Yes: WNL Cardiovascular: Yes: Pulse Irregular, S1, S2 Respiratory: Yes: Rhonchi (jes rhonchi) Gastrointestinal: Yes: Normal Bowel Sounds, Soft Extremities: Yes: WNL Edema: No Labs: CBC, BMP 02/16/17 06:20 02/16/17 06:20 INR, PTT INR 1.28 (0.82-1.09) H 02/15/17 06:00 Fibrinogen 668.0 mg/dL (238-498) H 02/15/17 06:00 Assessment/Plan Problem List - Problems (1) AAA (abdominal aortic aneurysm) without rupture Code(s): I71.4 - ABDOMINAL AORTIC ANEURYSM, WITHOUT RUPTURE (2) ALBERTO (acute kidney injury) Code(s): N17.9 - ACUTE KIDNEY FAILURE, UNSPECIFIED (3) Atrial fibrillation with rapid ventricular response Code(s): I48.91 - UNSPECIFIED ATRIAL FIBRILLATION (4) Back pain Code(s): M54.9 - DORSALGIA, UNSPECIFIED Qualifiers: Back pain location: low back pain Chronicity: acute Back pain laterality: bilateral Sciatica presence: without sciatica Qualified Code(s): M54.5 - Low back pain (5) Foot pain, left Code(s): M79.672 - PAIN IN LEFT FOOT (6) Hypotension Code(s): I95.9 - HYPOTENSION, UNSPECIFIED Qualifiers: Hypotension type: unspecified hypotension type Qualified Code(s): I95.9 - Hypotension, unspecified (7) MSSA (methicillin susceptible Staphylococcus aureus) septicemia Code(s): A41.01 - SEPSIS DUE TO METHICILLIN SUSCEPTIBLE STAPHYLOCOCCUS AUREUS (8) Paroxysmal atrial fibrillation with RVR Code(s): I48.0 - PAROXYSMAL ATRIAL FIBRILLATION (9) Sepsis Code(s): A41.9 - SEPSIS, UNSPECIFIED ORGANISM (10) Thoracic aortic aneurysm without rupture Code(s): I71.2 - THORACIC AORTIC ANEURYSM, WITHOUT RUPTURE Assessment/Plan O2 at maintain sat 90% ABX Per ID Inhaled bronchodilators AC with IV Heparin Strict I&O BD TX chest x-ray today DR MARTE
--- NOTE | 2017-02-16 14:10 | PN ---
Progress Note, Physician History of Present Illness: Persistent back pain, FABIOLA neg for vegetations, reveals PFO. - Current Medication List Current Medications: Active Medications Acetaminophen (Tylenol -) 650 mg PO Q4H PRN PRN Reason: FEVER OR PAIN Last Admin: 02/14/17 06:38 Dose: 650 mg Albuterol/Ipratropium (Duoneb -) 1 amp NEB Q6H PRN PRN Reason: SHORTNESS OF BREATH Last Admin: 02/16/17 05:13 Dose: 1 amp Alprazolam (Xanax -) 0.25 mg PO Q6H PRN Last Admin: 02/15/17 21:09 Dose: 0.25 mg Diltiazem HCl (Cardizem Injection -) 10 mg IVPUSH Q4H PRN PRN Reason: TACHYCARDIA Last Admin: 02/13/17 12:13 Dose: 10 mg Diltiazem HCl (Cardizem Cd -) 180 mg PO DAILY [facility] Last Admin: 02/16/17 09:11 Dose: 180 mg Docusate Sodium (Colace -) 100 mg PO BID [facility] Last Admin: 02/16/17 09:11 Dose: 100 mg Gabapentin (Neurontin -) 100 mg PO TID [facility] Last Admin: 02/16/17 13:24 Dose: 100 mg Heparin Sodium (Porcine) (Heparin -) 1,000 unit IVPUSH PRN PRN PRN Reason: Heparin Last Admin: 02/16/17 05:00 Dose: 1,000 unit Heparin Sodium (Porcine) (Heparin -) 5,000 unit IVPUSH PRN PRN PRN Reason: Heparin Last Admin: 02/14/17 11:09 Dose: 5,000 unit Hydromorphone HCl (Dilaudid Injection -) 1 mg IVPB Q4H PRN PRN Reason: PAIN Last Admin: 02/16/17 00:12 Dose: 1 mg Heparin Sodium (Porcine) 25, (000 unit/ Sodium Chloride) 500 mls @ 20 mls/hr IV TITR DOMITILA; 1,000 UNIT/HR PRN Reason: Protocol Last Admin: 02/16/17 05:02 Dose: 37 mls/hr Cefazolin Sodium/Dextrose (Ancef 2 Gm Premixed Ivpb -) 50 mls @ 100 mls/hr IVPB Q8H-IV [facility] Last Admin: 02/16/17 09:10 Dose: 100 mls/hr Potassium Chloride 20 meq/ (Dextrose) 1,010 mls @ 42 mls/hr IVPB Q24H [facility] Last Admin: 02/16/17 09:21 Dose: 42 mls/hr Lidocaine (Lidoderm Patch -) 1 patch TP DAILY [facility] Last Admin: 02/16/17 09:10 Dose: 1 patch Metoprolol Tartrate (Lopressor Injection -) 5 mg IVPUSH Q4H PRN Last Admin: 02/16/17 05:48 Dose: 5 mg Metoprolol Tartrate (Lopressor -) 50 mg PO BID [facility] Last Admin: 02/16/17 09:11 Dose: 50 mg Miscellaneous (Lidoderm Patch Removal) 1 each MC DAILY@2200 [facility] Last Admin: 02/15/17 21:10 Dose: 1 each Montelukast Sodium (Singulair -) 10 mg PO HS [facility] Last Admin: 02/15/17 21:08 Dose: 10 mg Non-Formulary Medication (Fluticasone/Salmeterol [Advair Hfa 230-21 Mcg Inhaler] ) 1 inh PO BID [facility] Ondansetron HCl (Zofran Injection) 4 mg IVPB Q6H PRN PRN Reason: NAUSEA Oxycodone HCl (Roxicodone -) 5 mg PO Q4H PRN PRN Reason: PAIN Last Admin: 02/16/17 05:03 Dose: 5 mg Polyethylene Glycol (Miralax (For Daily Use) -) 17 gm PO BID [facility] Last Admin: 02/16/17 09:11 Dose: 17 gm Potassium Chloride (K-Dur -) 20 meq PO BID [facility] Last Admin: 02/16/17 09:11 Dose: 20 meq Valacyclovir HCl (Valtrex -) 1,000 mg PO BID [facility] Last Admin: 02/16/17 13:24 Dose: 1,000 mg Zolpidem Tartrate (Ambien -) 5 mg PO HS PRN Last Admin: 02/10/17 21:10 Dose: 5 mg - Objective Vital Signs: Vital Signs Temperature 98.9 F 02/16/17 09:00 Pulse Rate 104 H 02/16/17 09:00 Respiratory Rate 18 02/16/17 09:00 Blood Pressure 161/93 02/16/17 09:00 O2 Sat by Pulse Oximetry (%) 95 02/16/17 09:00 Constitutional: Yes: No Distress, Calm Neck: Yes: Supple Cardiovascular: Yes: Regular Rate and Rhythm Respiratory: Yes: Regular, Diminished, On Nasal O2 Gastrointestinal: Yes: Normal Bowel Sounds, Soft, Abdomen, Obese Edema: No Labs: CBC, BMP 02/16/17 06:20 02/16/17 06:20 INR, PTT INR 1.28 (0.82-1.09) H 02/15/17 06:00 Fibrinogen 668.0 mg/dL (238-498) H 02/15/17 06:00 Problem List - Problems (1) ALBERTO (acute kidney injury) Code(s): N17.9 - ACUTE KIDNEY FAILURE, UNSPECIFIED (2) Lactic acidosis Code(s): E87.2 - ACIDOSIS (3) Sepsis associated hypotension Code(s): A41.9 - SEPSIS, UNSPECIFIED ORGANISM (4) MSSA (methicillin susceptible Staphylococcus aureus) septicemia Code(s): A41.01 - SEPSIS DUE TO METHICILLIN SUSCEPTIBLE STAPHYLOCOCCUS AUREUS (5) Paroxysmal atrial fibrillation with RVR Code(s): I48.0 - PAROXYSMAL ATRIAL FIBRILLATION (6) Thrombocytopenia Code(s): D69.6 - THROMBOCYTOPENIA, UNSPECIFIED (7) Hypokalemia Code(s): E87.6 - HYPOKALEMIA (8) Back pain Code(s): M54.9 - DORSALGIA, UNSPECIFIED Qualifiers: Back pain location: low back pain Chronicity: acute Back pain laterality: bilateral Sciatica presence: without sciatica Qualified Code(s): M54.5 - Low back pain (9) Thoracic aortic aneurysm without rupture Code(s): I71.2 - THORACIC AORTIC ANEURYSM, WITHOUT RUPTURE Assessment/Plan 02/11/2017 Echo: Mildly decreased LV fxn with mild-mod anterior, anteroseptal HK with mild RV dysfunction, mild MR, [place], [place], [place], mildly dilated ascending aortic root 02/15/2017 FABIOLA: Normal LV fxn, no clots LIANNA, mild-mod MR, [place], no vegetations, PFO seen 1. Persistent MSSA bacteremia with early left iliopsoas phlegmon 2. Paroxysmal atrial fibrillation with RVR [id number] with possible left foot thromboembolism vs septic emboli 3. ALBERTO and lactic acidosis due to hemodynamic alterations resolving 4. 4.1 cm TAA 5. Thrombocytopenia due to sepsis improving 6. Acute on chronic diastolic failure improved 7. Possible gout vs septic emboli to left foot P:1. Continue Cardizem IV, Cardizem CD 180 qd and Lopressor 50 bid as hemodynamics tolerate for rate-control, hep gtt with caution given thrombocytropenia 2. Replete K as you are, analgesia as needed, f/u surveillance bld cx, Ancef per sensitivities, possible drainage attempt?
--- NOTE | 2017-02-16 15:01 | PN ---
Progress Note (short form) - Note Progress Note: NEUROSURGERY MSSA on blood culture + 1/2 as of 02-16 specimen new blood culture pending PE: Tmax 99, VSS HEENT- NC/AT; Neck- supple; Cor- RR; Lungs- no wheezes; Abd- obese, benign; Ext - No sign of DVT CN- intact; Motor- 5/5 except L IP 4-, L Quad/EHL/TA/gastroc/inv/ev 3-4-; Sensation- diminished PP/LT L L4-5; DTR- hyporeflexic B MRI- L4-5 grade I spondylolisthesis with facet hypertrophy and moderate canal stenosis and moderate-marked foramenal stenosis; L4-5 disc T2 hyperinstensity; mild L4-5 facet joint effusion/hypertrophy; severe L5-S1 DDD; mild psoas edema B WBC 21.2k and trending up still L4-5 spondylolisthesis with stenosis and mechanical LBP and L L4-5 radiculopathy MSSA bacteremia with possible L4-5 discitis/psoas inflammatory changes MCFP iv abx assuming it is MSSA discitis/psoas inflammation Care d/w ID Re-image with claude if no improvement or temp spike and GFR acceptable
[2017-02-16] MEDS: ALPRAZolam 0.25 MG TABLET PO PRN (22:17)
[2017-02-16] MEDS: MONTELUKAST NA 10 MG TABLET PO SCH (22:18)
[2017-02-17] MEDS: HYDROmorphone HCL CARPU-JECT 1 MG/1 ML DISP.SYRIN IVPB PRN ×2 (00:52→22:22)
[2017-02-17] MEDS: LIDOCAINE PATCH REMOVAL MC SCH ×2 (00:53→22:21)
[2017-02-17] MEDS ORDERED: PT OWN MED DRAWER 7, Y5N ONE (01:25)
[2017-02-17] MEDS: CEFAZOLIN 2 GM/D5W 50 ML IVPB SCH ×3 (02:06→17:38)
[2017-02-17] MEDS ORDERED: HEPARIN INFUSION - 500 ML IVPB ONE ×2 (06:30→22:16)
[2017-02-17] MEDS: HEPARIN - 25,000 UNIT in SODIUM CHLORIDE 495 ML IV SCH ×2 (06:38→20:14)
[2017-02-17] MEDS: GABAPENTIN 100 MG CAPSULE (FP) PO SCH ×3 (06:39→22:21)
[2017-02-17 07:11] LABS: MCH 33.6 pg (25.7-33.7); MCHC 33.4 g/dl (32.0-35.9); MEAN CELL VOLUME 100.7 fl (80-96); MEAN PLT VOLUME 9.6 fl (7.5-11.1); PLATELET COUNT 163 K/MM3 (134-434); RDW 14.5 % (11.9-15.9); WHITE BLOOD COUNT 17.6 K/mm3 (4.0-10.0)
[2017-02-17 07:36] LABS: CALCIUM 8.2 mg/dL (8.5-10.1); COCKROFT - GAULT 89.16; CREATININE 0.9 mg/dL (0.7-1.3)
[2017-02-17] MEDS ORDERED: HALOPERIDOL LACTATE 5 MG/ML IM PRN (08:22)
--- NOTE | 2017-02-17 08:32 | PN ---
Progress Note (short form) - Note Progress Note: Patient able to talk to me this AM; knows he is in hospital but restless and delirious off and on during the nite and may need more 1 on1 nursing if this is not improved.. He tells me he has no pain this AM and I dont think giving opiods for delirium is helping if his pain is improved. Will order PRN haldol. Today at least his WBC is improved to 17,600 and he is afebrile. I spoke to Dr. Krupa Polo about his visit to Radiology to review the Scans the patient has had. Seen by multiple consultants. On Exam: Vital Signs Temp 98 F 02/17/17 05:54 Pulse 72 02/17/17 05:54 Resp 20 02/17/17 05:54 BP 142/84 02/17/17 05:54 Pulse Ox 94 L 02/16/17 21:00 Intake & Output 02/16/17 02/16/17 02/17/17 11:59 23:59 11:59 Intake Total 402 Output Total 550 1400 600 Balance -148 -1400 -600 Intake: IV 352 Heparin - 25,000 Unit In 352 Normal Saline - 495 ml @ 1,000 UNIT/HR 20 mls/hr IV TITR DOMITILA Rx#: [id number] IVPB 50 Output: Urine 550 1400 600 Fragoso 550 1400 600 Other: Voiding Method Indwelling Catheter Indwelling Catheter Bowel Movement Yes No More aware Chest: Decreased breath sounds Heart regular Abd: Soft Slightly less erythema and swelling dorsum of left foot. Abnormal Lab Results 02/16/17 02/16/17 02/17/17 06:20 11:20 05:35 WBC RBC MCV Nucleated RBCs 1 H PTT (Actin FS) 50.8 H 42.2 H Sodium Potassium Chloride BUN Random Glucose Calcium 02/17/17 02/17/17 05:35 05:35 WBC 17.6 H RBC 3.60 L MCV 100.7 H Nucleated RBCs PTT (Actin FS) Sodium 150 H Potassium 3.2 L Chloride 109 H BUN 35 H D Random Glucose 121 H Calcium 8.2 L IMP: MSSA Bacteremia Atrial Fib: Now NSR Probable Septic Embole Delirium Pain improved Hypokalemia Plan: F/U Lab Rx: prn for delirium Continue Antibiotics ? tranfer to ICU for monitoring and management of acute symptoms Problem List - Problems (1) Atrial fibrillation with rapid ventricular response Code(s): I48.91 - UNSPECIFIED ATRIAL FIBRILLATION (2) Back pain Code(s): M54.9 - DORSALGIA, UNSPECIFIED Qualifiers: Back pain location: low back pain Chronicity: acute Back pain laterality: bilateral Sciatica presence: without sciatica Qualified Code(s): M54.5 - Low back pain (3) Sepsis Code(s): A41.9 - SEPSIS, UNSPECIFIED ORGANISM (4) ALBERTO (acute kidney injury) Code(s): N17.9 - ACUTE KIDNEY FAILURE, UNSPECIFIED (5) Hypotension Code(s): I95.9 - HYPOTENSION, UNSPECIFIED Qualifiers: Hypotension type: unspecified hypotension type Qualified Code(s): I95.9 - Hypotension, unspecified (6) Lactic acidosis Code(s): E87.2 - ACIDOSIS (7) Sepsis associated hypotension Code(s): A41.9 - SEPSIS, UNSPECIFIED ORGANISM (8) AAA (abdominal aortic aneurysm) without rupture Code(s): I71.4 - ABDOMINAL AORTIC ANEURYSM, WITHOUT RUPTURE (9) Pain Code(s): R52 - PAIN, UNSPECIFIED (10) Foot pain, left Code(s): M79.672 - PAIN IN LEFT FOOT
[2017-02-17 09:15] LABS: METAMYELOCYTE 1 % (0-2)
[2017-02-17 09:16] LABS: PLATELET ESTIMATE ADEQUATE (NORMAL)
--- NOTE | 2017-02-17 09:27 | PN ---
Progress Note (short form) - Note Progress Note: NEUROSURGERY at bedside MSSA on blood culture + 1/2 from 02/14; 02-16 specimen still negative/pending PE: Tmax 98.6, VSS HEENT- NC/AT; Neck- supple; Cor- RR; Lungs- no wheezes; Abd- obese, benign; Ext - No sign of DVT CN- intact; Motor- 5/5 except L IP/Quad/EHL/TA/gastroc/inv/ev 4-; Sensation- diminished LT L L4-5 MRI- L4-5 grade I spondylolisthesis with facet hypertrophy and moderate canal stenosis and moderate-marked foramenal stenosis; L4-5 disc T2 hyperinstensity; mild L4-5 facet joint effusion/hypertrophy; severe L5-S1 DDD; mild psoas edema B WBC 17.6, trending lower L4-5 spondylolisthesis with stenosis and mechanical LBP and L L4-5 radiculopathy MSSA bacteremia with possible L4-5 discitis/psoas inflammatory changes retirement iv abx assuming it is MSSA discitis/psoas inflammation Care d/w Dr Gentile
[2017-02-17] MEDS: LIDOCAINE 5% TOPICAL PATCH TP SCH (10:06)
[2017-02-17] MEDS: POTASSIUM CHLORIDE TABS 20 MEQ TABLET.ER (FP) PO SCH ×2 (10:06→22:21)
[2017-02-17] MEDS: DOCUSATE SODIUM 100 MG CAPSULE (FP) PO SCH ×2 (10:07→22:24)
[2017-02-17] MEDS: valACYclovir HCL 500 MG TABLET (FP) PO SCH ×2 (10:07→22:21)
[2017-02-17] MEDS: METOPROLOL TARTRATE 50 MG TABLET (FP) PO SCH ×2 (10:07→22:21)
[2017-02-17] MEDS: POLYETHYLENE GLYCOL 3350 119 GM BTL PO SCH ×2 (10:09→22:24)
[2017-02-17] MEDS: HEPARIN NA (PORCINE) 5,000 UNITS/ML 1ML VIAL IVPUSH PRN ×2 (10:13→20:13)
--- NOTE | 2017-02-17 11:22 | PN ---
Progress Note, Physician History of Present Illness: Awake, more responsive today No c/o back pain Afebrile WBC sligthly lower today @17K - Current Medication List Current Medications: Active Medications Acetaminophen (Tylenol -) 650 mg PO Q4H PRN PRN Reason: FEVER OR PAIN Last Admin: 02/14/17 06:38 Dose: 650 mg Albuterol/Ipratropium (Duoneb -) 1 amp NEB Q6H PRN PRN Reason: SHORTNESS OF BREATH Last Admin: 02/16/17 05:13 Dose: 1 amp Alprazolam (Xanax -) 0.25 mg PO Q6H PRN Last Admin: 02/16/17 22:17 Dose: 0.25 mg Diltiazem HCl (Cardizem Injection -) 10 mg IVPUSH Q4H PRN PRN Reason: TACHYCARDIA Last Admin: 02/13/17 12:13 Dose: 10 mg Diltiazem HCl (Cardizem Cd -) 180 mg PO DAILY [facility] Last Admin: 02/17/17 10:07 Dose: 180 mg Docusate Sodium (Colace -) 100 mg PO BID [facility] Last Admin: 02/17/17 10:07 Dose: 100 mg Gabapentin (Neurontin -) 100 mg PO TID [facility] Last Admin: 02/17/17 06:39 Dose: 100 mg Haloperidol (Haldol Injection (Fast Acting) -) 2 mg IM Q4H PRN PRN Reason: AGITATION Heparin Sodium (Porcine) (Heparin -) 1,000 unit IVPUSH PRN PRN PRN Reason: Heparin Last Admin: 02/17/17 10:13 Dose: 1,000 unit Heparin Sodium (Porcine) (Heparin -) 5,000 unit IVPUSH PRN PRN PRN Reason: Heparin Last Admin: 02/14/17 11:09 Dose: 5,000 unit Hydromorphone HCl (Dilaudid Injection -) 1 mg IVPB Q4H PRN PRN Reason: PAIN Last Admin: 02/17/17 00:52 Dose: 1 mg Heparin Sodium (Porcine) 25, (000 unit/ Sodium Chloride) 500 mls @ 20 mls/hr IV TITR DOM[facility]A; 1,000 UNIT/HR PRN Reason: Protocol Last Titration: 02/17/17 10:12 Dose: 1,950 unit/hr Cefazolin Sodium/Dextrose (Ancef 2 Gm Premixed Ivpb -) 50 mls @ 100 mls/hr IVPB Q8H-IV [facility] Last Admin: 02/17/17 10:05 Dose: 100 mls/hr Potassium Chloride 20 meq/ (Dextrose) 1,010 mls @ 100 mls/hr IVPB Q10H [facility] Lidocaine (Lidoderm Patch -) 1 patch TP DAILY [facility] Last Admin: 02/17/17 10:06 Dose: 1 patch Metoprolol Tartrate (Lopressor Injection -) 5 mg IVPUSH Q4H PRN Last Admin: 02/16/17 05:48 Dose: 5 mg Metoprolol Tartrate (Lopressor -) 50 mg PO BID [facility] Last Admin: 02/17/17 10:07 Dose: 50 mg Miscellaneous (Lidoderm Patch Removal) 1 each MC DAILY@2200 [facility] Last Admin: 02/17/17 00:53 Dose: 1 each Montelukast Sodium (Singulair -) 10 mg PO HS [facility] Last Admin: 02/16/17 22:18 Dose: 10 mg Non-Formulary Medication (Fluticasone/Salmeterol [Advair Hfa 230-21 Mcg Inhaler] ) 1 inh PO BID [facility] Ondansetron HCl (Zofran Injection) 4 mg IVPB Q6H PRN PRN Reason: NAUSEA Oxycodone HCl (Roxicodone -) 5 mg PO Q4H PRN PRN Reason: PAIN Last Admin: 02/16/17 22:17 Dose: 5 mg Polyethylene Glycol (Miralax (For Daily Use) -) 17 gm PO BID [facility] Last Admin: 02/17/17 10:09 Dose: 17 gm Potassium Chloride (K-Dur -) 20 meq PO BID [facility] Last Admin: 02/17/17 10:06 Dose: 20 meq Valacyclovir HCl (Valtrex -) 1,000 mg PO BID [facility] Last Admin: 02/17/17 10:07 Dose: 1,000 mg - Objective Vital Signs: Vital Signs Temperature 98.6 F 02/17/17 10:00 Pulse Rate 78 02/17/17 10:00 Respiratory Rate 20 02/17/17 10:00 Blood Pressure 143/84 02/17/17 10:00 O2 Sat by Pulse Oximetry (%) 94 L 02/16/17 21:00 Constitutional: Yes: No Distress Eyes: Yes: Conjunctiva Clear Cardiovascular: Yes: Regular Rate and Rhythm, S1, S2 Respiratory: Yes: CTA Bilaterally Gastrointestinal: Yes: Normal Bowel Sounds, Soft, Abdomen, Obese. No: Tenderness Extremities: Yes: Other (decreased erythema/ warmth , dorsum L foot) Labs: CBC, BMP 02/17/17 05:35 02/17/17 05:35 INR, PTT INR 1.28 (0.82-1.09) H 02/15/17 06:00 Fibrinogen 668.0 mg/dL (238-498) H 02/15/17 06:00 Assessment/Plan MSSA bacteremia/possible endocarditis Possible early psoas abscess Possible cellulitis L foot Leukocytosis- improved Thrombocytopenia resolved Azotemia- resolved Check repeat BC Continue cefazolin Repeat imaging to R/O development of psoas abscess/ drainable collection
[2017-02-17] MEDS: POTASSIUM CHLORIDE 20 MEQ in DEXTROSE 5%-WATER - 1,000 ML IVPB SCH ×2 (12:00→22:24)
--- NOTE | 2017-02-17 12:28 | PN ---
Progress Note, Physician History of Present Illness: Back and left foot pain improved, FABIOLA neg for vegetations, reveals PFO. Remains in SR. - Current Medication List Current Medications: Active Medications Acetaminophen (Tylenol -) 650 mg PO Q4H PRN PRN Reason: FEVER OR PAIN Last Admin: 02/14/17 06:38 Dose: 650 mg Albuterol/Ipratropium (Duoneb -) 1 amp NEB Q6H PRN PRN Reason: SHORTNESS OF BREATH Last Admin: 02/16/17 05:13 Dose: 1 amp Alprazolam (Xanax -) 0.25 mg PO Q6H PRN Last Admin: 02/16/17 22:17 Dose: 0.25 mg Diltiazem HCl (Cardizem Injection -) 10 mg IVPUSH Q4H PRN PRN Reason: TACHYCARDIA Last Admin: 02/13/17 12:13 Dose: 10 mg Diltiazem HCl (Cardizem Cd -) 180 mg PO DAILY [facility] Last Admin: 02/17/17 10:07 Dose: 180 mg Docusate Sodium (Colace -) 100 mg PO BID [facility] Last Admin: 02/17/17 10:07 Dose: 100 mg Gabapentin (Neurontin -) 100 mg PO TID [facility] Last Admin: 02/17/17 06:39 Dose: 100 mg Haloperidol (Haldol Injection (Fast Acting) -) 2 mg IM Q4H PRN PRN Reason: AGITATION Heparin Sodium (Porcine) (Heparin -) 1,000 unit IVPUSH PRN PRN PRN Reason: Heparin Last Admin: 02/17/17 10:13 Dose: 1,000 unit Heparin Sodium (Porcine) (Heparin -) 5,000 unit IVPUSH PRN PRN PRN Reason: Heparin Last Admin: 02/14/17 11:09 Dose: 5,000 unit Hydromorphone HCl (Dilaudid Injection -) 1 mg IVPB Q4H PRN PRN Reason: PAIN Last Admin: 02/17/17 00:52 Dose: 1 mg Heparin Sodium (Porcine) 25, (000 unit/ Sodium Chloride) 500 mls @ 20 mls/hr IV TITR [facility]A; 1,000 UNIT/HR PRN Reason: Protocol Last Titration: 02/17/17 10:12 Dose: 1,950 unit/hr Cefazolin Sodium/Dextrose (Ancef 2 Gm Premixed Ivpb -) 50 mls @ 100 mls/hr IVPB Q8H-IV [facility] Last Admin: 02/17/17 10:05 Dose: 100 mls/hr Potassium Chloride 20 meq/ (Dextrose) 1,010 mls @ 100 mls/hr IVPB Q10H [facility] Last Admin: 02/17/17 12:00 Dose: 100 mls/hr Lidocaine (Lidoderm Patch -) 1 patch TP DAILY [facility] Last Admin: 02/17/17 10:06 Dose: 1 patch Metoprolol Tartrate (Lopressor Injection -) 5 mg IVPUSH Q4H PRN Last Admin: 02/16/17 05:48 Dose: 5 mg Metoprolol Tartrate (Lopressor -) 50 mg PO BID [facility] Last Admin: 02/17/17 10:07 Dose: 50 mg Miscellaneous (Lidoderm Patch Removal) 1 each MC DAILY@2200 [facility] Last Admin: 02/17/17 00:53 Dose: 1 each Montelukast Sodium (Singulair -) 10 mg PO HS [facility] Last Admin: 02/16/17 22:18 Dose: 10 mg Non-Formulary Medication (Fluticasone/Salmeterol [Advair Hfa 230-21 Mcg Inhaler] ) 1 inh PO BID [facility] Ondansetron HCl (Zofran Injection) 4 mg IVPB Q6H PRN PRN Reason: NAUSEA Oxycodone HCl (Roxicodone -) 5 mg PO Q4H PRN PRN Reason: PAIN Last Admin: 02/16/17 22:17 Dose: 5 mg Polyethylene Glycol (Miralax (For Daily Use) -) 17 gm PO BID [facility] Last Admin: 02/17/17 10:09 Dose: 17 gm Potassium Chloride (K-Dur -) 20 meq PO BID [facility] Last Admin: 02/17/17 10:06 Dose: 20 meq Valacyclovir HCl (Valtrex -) 1,000 mg PO BID [facility] Last Admin: 02/17/17 10:07 Dose: 1,000 mg - Objective Vital Signs: Vital Signs Temperature 98.6 F 02/17/17 10:00 Pulse Rate 78 02/17/17 10:00 Respiratory Rate 20 02/17/17 10:00 Blood Pressure 143/84 02/17/17 10:00 O2 Sat by Pulse Oximetry (%) 94 L 02/16/17 21:00 Constitutional: Yes: No Distress, Calm Neck: Yes: Supple Cardiovascular: Yes: Regular Rate and Rhythm Respiratory: Yes: Regular, Diminished, On Nasal O2 Gastrointestinal: Yes: Normal Bowel Sounds, Soft, Abdomen, Obese Edema: No Labs: CBC, BMP 02/17/17 05:35 02/17/17 05:35 INR, PTT INR 1.28 (0.82-1.09) H 02/15/17 06:00 Fibrinogen 668.0 mg/dL (238-498) H 02/15/17 06:00 Problem List - Problems (1) ALBERTO (acute kidney injury) Code(s): N17.9 - ACUTE KIDNEY FAILURE, UNSPECIFIED (2) Lactic acidosis Code(s): E87.2 - ACIDOSIS (3) Sepsis associated hypotension Code(s): A41.9 - SEPSIS, UNSPECIFIED ORGANISM (4) MSSA (methicillin susceptible Staphylococcus aureus) septicemia Code(s): A41.01 - SEPSIS DUE TO METHICILLIN SUSCEPTIBLE STAPHYLOCOCCUS AUREUS (5) Paroxysmal atrial fibrillation with RVR Code(s): I48.0 - PAROXYSMAL ATRIAL FIBRILLATION (6) Thrombocytopenia Code(s): D69.6 - THROMBOCYTOPENIA, UNSPECIFIED (7) Hypokalemia Code(s): E87.6 - HYPOKALEMIA (8) Back pain Code(s): M54.9 - DORSALGIA, UNSPECIFIED Qualifiers: Back pain location: low back pain Chronicity: acute Back pain laterality: bilateral Sciatica presence: without sciatica Qualified Code(s): M54.5 - Low back pain (9) Thoracic aortic aneurysm without rupture Code(s): I71.2 - THORACIC AORTIC ANEURYSM, WITHOUT RUPTURE Assessment/Plan 02/11/2017 Echo: Mildly decreased LV fxn with mild-mod anterior, anteroseptal HK with mild RV dysfunction, mild MR, [place], [place], [place], mildly dilated ascending aortic root 02/15/2017 FABIOLA: Normal LV fxn, no clots LIANNA, mild-mod MR, [place], no vegetations, PFO seen 1. Persistent MSSA bacteremia with early left iliopsoas phlegmon with improved leukocytosis 2. Paroxysmal atrial fibrillation with RVR [id number] with possible left foot thromboembolism vs septic emboli, cellulitis 3. ALBERTO and lactic acidosis due to hemodynamic alterations resolving 4. 4.1 cm TAA 5. Thrombocytopenia due to sepsis improving 6. Acute on chronic diastolic failure improved 7. Hypernatremia P:1. Continue Cardizem CD 180 qd and Lopressor 50 bid as hemodynamics tolerate for rate-control, hep gtt pending procedures 2. Replete K as you are, free water repletion analgesia as needed, f/u surveillance bld cx, Ancef per sensitivities, repeat imaging to R/O development of psoas abscess/ drainable collection
[2017-02-17] MEDS ORDERED: POTASSIUM CHLORIDE TABS 20 MEQ TABLET.ER (FP) PO ONE (14:27)
--- NOTE | 2017-02-17 14:27 | PN ---
Progress Note, Physician History of Present Illness: Pt seen and examined at bedside. He is more awake and alert today. He denies shortness of breath. - Current Medication List Current Medications: Active Medications Acetaminophen (Tylenol -) 650 mg PO Q4H PRN PRN Reason: FEVER OR PAIN Last Admin: 02/14/17 06:38 Dose: 650 mg Albuterol/Ipratropium (Duoneb -) 1 amp NEB Q6H PRN PRN Reason: SHORTNESS OF BREATH Last Admin: 02/16/17 05:13 Dose: 1 amp Alprazolam (Xanax -) 0.25 mg PO Q6H PRN Last Admin: 02/16/17 22:17 Dose: 0.25 mg Diltiazem HCl (Cardizem Injection -) 10 mg IVPUSH Q4H PRN PRN Reason: TACHYCARDIA Last Admin: 02/13/17 12:13 Dose: 10 mg Diltiazem HCl (Cardizem Cd -) 180 mg PO DAILY [facility] Last Admin: 02/17/17 10:07 Dose: 180 mg Docusate Sodium (Colace -) 100 mg PO BID [facility] Last Admin: 02/17/17 10:07 Dose: 100 mg Gabapentin (Neurontin -) 100 mg PO TID [facility] Last Admin: 02/17/17 06:39 Dose: 100 mg Haloperidol (Haldol Injection (Fast Acting) -) 2 mg IM Q4H PRN PRN Reason: AGITATION Heparin Sodium (Porcine) (Heparin -) 1,000 unit IVPUSH PRN PRN PRN Reason: Heparin Last Admin: 02/17/17 10:13 Dose: 1,000 unit Heparin Sodium (Porcine) (Heparin -) 5,000 unit IVPUSH PRN PRN PRN Reason: Heparin Last Admin: 02/14/17 11:09 Dose: 5,000 unit Hydromorphone HCl (Dilaudid Injection -) 1 mg IVPB Q4H PRN PRN Reason: PAIN Last Admin: 02/17/17 00:52 Dose: 1 mg Heparin Sodium (Porcine) 25, (000 unit/ Sodium Chloride) 500 mls @ 20 mls/hr IV TITR [facility]; 1,000 UNIT/HR PRN Reason: Protocol Last Titration: 02/17/17 10:12 Dose: 1,950 unit/hr Cefazolin Sodium/Dextrose (Ancef 2 Gm Premixed Ivpb -) 50 mls @ 100 mls/hr IVPB Q8H-IV [facility] Last Admin: 02/17/17 10:05 Dose: 100 mls/hr Potassium Chloride 20 meq/ (Dextrose) 1,010 mls @ 100 mls/hr IVPB Q10H [facility] Last Admin: 02/17/17 12:00 Dose: 100 mls/hr Lidocaine (Lidoderm Patch -) 1 patch TP DAILY [facility] Last Admin: 02/17/17 10:06 Dose: 1 patch Metoprolol Tartrate (Lopressor Injection -) 5 mg IVPUSH Q4H PRN Last Admin: 02/16/17 05:48 Dose: 5 mg Metoprolol Tartrate (Lopressor -) 50 mg PO BID [facility] Last Admin: 02/17/17 10:07 Dose: 50 mg Miscellaneous (Lidoderm Patch Removal) 1 each MC DAILY@2200 [facility] Last Admin: 02/17/17 00:53 Dose: 1 each Montelukast Sodium (Singulair -) 10 mg PO HS [facility] Last Admin: 02/16/17 22:18 Dose: 10 mg Non-Formulary Medication (Fluticasone/Salmeterol [Advair Hfa 230-21 Mcg Inhaler] ) 1 inh PO BID [facility] Ondansetron HCl (Zofran Injection) 4 mg IVPB Q6H PRN PRN Reason: NAUSEA Oxycodone HCl (Roxicodone -) 5 mg PO Q4H PRN PRN Reason: PAIN Last Admin: 02/16/17 22:17 Dose: 5 mg Polyethylene Glycol (Miralax (For Daily Use) -) 17 gm PO BID [facility] Last Admin: 02/17/17 10:09 Dose: 17 gm Potassium Chloride (K-Dur -) 20 meq PO BID [facility] Last Admin: 02/17/17 10:06 Dose: 20 meq Valacyclovir HCl (Valtrex -) 1,000 mg PO BID [facility] Last Admin: 02/17/17 10:07 Dose: 1,000 mg - Objective Vital Signs: Vital Signs Temperature 98.6 F 02/17/17 10:00 Pulse Rate 78 02/17/17 10:00 Respiratory Rate 20 02/17/17 10:00 Blood Pressure 143/84 02/17/17 10:00 O2 Sat by Pulse Oximetry (%) 94 L 02/17/17 09:00 Constitutional: Yes: Calm Eyes: Yes: Conjunctiva Clear HENT: Yes: Atraumatic Neck: Yes: Supple Cardiovascular: Yes: S1, S2 Respiratory: Yes: On Nasal O2, Tachypnea Gastrointestinal: Yes: Soft, Abdomen, Obese Genitourinary: Yes: Fragoso Present Musculoskeletal: Yes: Muscle Weakness Edema: No Neurological: Yes: Oriented Psychiatric: Yes: Oriented Labs: CBC, BMP 02/17/17 05:35 02/17/17 05:35 INR, PTT INR 1.28 (0.82-1.09) H 02/15/17 06:00 Fibrinogen 668.0 mg/dL (238-498) H 02/15/17 06:00 Problem List - Problems (1) Back pain Code(s): M54.9 - DORSALGIA, UNSPECIFIED Qualifiers: Back pain location: low back pain Chronicity: acute Back pain laterality: bilateral Sciatica presence: without sciatica Qualified Code(s): M54.5 - Low back pain (2) Hypotension Code(s): I95.9 - HYPOTENSION, UNSPECIFIED Qualifiers: Hypotension type: unspecified hypotension type Qualified Code(s): I95.9 - Hypotension, unspecified (3) ALBERTO (acute kidney injury) Code(s): N17.9 - ACUTE KIDNEY FAILURE, UNSPECIFIED Assessment/Plan Current Medications Generic Name Dose Route Start Last Admin Trade Name Freq PRN Reason Stop Dose Admin Acetaminophen 650 mg 02/10/17 15:43 02/14/17 06:38 Tylenol - PO 650 mg Q4H PRN Administration FEVER OR PAIN Albuterol/Ipratropium 1 amp 02/11/17 14:36 02/16/17 05:13 Duoneb - NEB 1 amp Q6H PRN Administration SHORTNESS OF BREATH Alprazolam 0.25 mg 02/13/17 02:25 02/16/17 22:17 Xanax - PO 0.25 mg Q6H PRN Administration Diltiazem HCl 10 mg 02/12/17 07:18 02/13/17 12:13 Cardizem Injection - IVPUSH 10 mg Q4H PRN Administration TACHYCARDIA Diltiazem HCl 180 mg 02/16/17 10:00 02/17/17 10:07 Cardizem Cd - PO 180 mg DAILY [facility] Administration Docusate Sodium 100 mg 02/10/17 22:00 02/17/17 10:07 Colace - PO 100 mg BID [facility] Administration Gabapentin 100 mg 02/11/17 08:00 02/17/17 06:39 Neurontin - PO 100 mg TID [facility] Administration Haloperidol 2 mg 02/17/17 08:22 Haldol Injection (Fast Acting) - IM Q4H PRN AGITATION Heparin Sodium (Porcine) 1,000 unit 02/12/17 06:55 02/17/17 10:13 Heparin - IVPUSH 1,000 unit PRN PRN Administration Heparin Heparin Sodium (Porcine) 5,000 unit 02/12/17 06:55 02/14/17 11:09 Heparin - IVPUSH 5,000 unit PRN PRN Administration Heparin Hydromorphone HCl 1 mg 02/10/17 15:43 02/17/17 00:52 Dilaudid Injection - IVPB 1 mg Q4H PRN Administration PAIN Heparin Sodium (Porcine) 25, 500 mls @ 20 mls/hr 02/12/17 07:00 02/17/17 10:12 000 unit/ Sodium Chloride IV 1,950 unit/hr TITR DOM[facility] Titration Protocol 1,000 UNIT/HR Cefazolin Sodium/Dextrose 50 mls @ 100 mls/hr 02/12/17 10:00 02/17/17 10:05 Ancef 2 Gm Premixed Ivpb - IVPB 100 mls/hr Q8H-IV [facility] Administration Potassium Chloride 20 meq/ 1,010 mls @ 100 mls/hr 02/17/17 10:15 02/17/17 12:00 Dextrose IVPB 100 mls/hr Q10H [facility] Administration Lidocaine 1 patch 02/11/17 10:00 02/17/17 10:06 Lidoderm Patch - TP 1 patch DAILY [facility] Administration Metoprolol Tartrate 5 mg 02/12/17 23:16 02/16/17 05:48 Lopressor Injection - IVPUSH 5 mg Q4H PRN Administration Metoprolol Tartrate 50 mg 02/14/17 22:00 02/17/17 10:07 Lopressor - PO 50 mg BID [facility] Administration Miscellaneous 1 each 02/11/17 22:00 02/17/17 00:53 Lidoderm Patch Removal MC 1 each DAILY@2200 [facility] Administration Montelukast Sodium 10 mg 05/25/17 22:00 02/16/17 22:18 Singulair - PO 10 mg HS [facility] Administration Non-Formulary Medication 1 inh 02/10/17 22:00 Fluticasone/Salmeterol [Advair Hfa 230-21 Mcg Inhaler] PO BID [facility] Ondansetron HCl 4 mg 02/10/17 15:43 Zofran Injection IVPB Q6H PRN NAUSEA Oxycodone HCl 5 mg 02/10/17 15:43 02/16/17 22:17 Roxicodone - PO 5 mg Q4H PRN Administration PAIN Polyethylene Glycol 17 gm 02/14/17 22:00 02/17/17 10:09 Miralax (For Daily Use) - PO 17 gm BID [facility] Administration Potassium Chloride 20 meq 02/15/17 22:00 02/17/17 10:06 K-Dur - PO 20 meq BID [facility] Administration Valacyclovir HCl 1,000 mg 02/16/17 11:00 02/17/17 10:07 Valtrex - PO 1,000 mg BID [facility] Administration Impression 1. ALBERTO 2. lactic acidosis 3. hypotension 4. hx of HTN 5. asthma 6. back pain 7. r/o dissection 8. sepsis 9. bacteremia 10. PFO Plan - cont with d5 with potassium - replace potassium - check mag - encourage free water intake - pt had all of his breakfast today - follow up blood cultures - abx per ID - will follow Dr Traore
[2017-02-17] MEDS: oxyCODONE HCL 5 MG TABLET PO PRN (16:14)
[2017-02-17] MEDS ORDERED: ALBUTEROL SO4 0.083% IH SOL 2.5 MG/3 ML VIAL.NEB. NEB PRN (16:46)
--- NOTE | 2017-02-17 16:48 | PN ---
Progress Note (short form) - Note Progress Note: PULMONARY Lethargic but arousable, falls asleep easily. Confused when awake. Last Vital Signs Temp Pulse Resp BP Pulse Ox 99.9 F H 85 20 161/102 94 L 02/17/17 14:24 02/17/17 14:24 02/17/17 14:24 02/17/17 14:24 02/17/17 09:00 Gen: lethargic, arousable Heart: RRR Lung: scattered rhonchi, wheezes Abd: soft, nontender Ext: no edema CBC, BMP 02/17/17 05:35 02/17/17 05:35 Active Medications Acetaminophen (Tylenol -) 650 mg PO Q4H PRN PRN Reason: FEVER OR PAIN Last Admin: 02/14/17 06:38 Dose: 650 mg Albuterol/Ipratropium (Duoneb -) 1 amp NEB Q6H PRN PRN Reason: SHORTNESS OF BREATH Last Admin: 02/16/17 05:13 Dose: 1 amp Alprazolam (Xanax -) 0.25 mg PO Q6H PRN Last Admin: 02/16/17 22:17 Dose: 0.25 mg Diltiazem HCl (Cardizem Injection -) 10 mg IVPUSH Q4H PRN PRN Reason: TACHYCARDIA Last Admin: 02/13/17 12:13 Dose: 10 mg Diltiazem HCl (Cardizem Cd -) 180 mg PO DAILY [facility] Last Admin: 02/17/17 10:07 Dose: 180 mg Docusate Sodium (Colace -) 100 mg PO BID [facility] Last Admin: 02/17/17 10:07 Dose: 100 mg Gabapentin (Neurontin -) 100 mg PO TID [facility] Last Admin: 02/17/17 15:22 Dose: 100 mg Haloperidol (Haldol Injection (Fast Acting) -) 2 mg IM Q4H PRN PRN Reason: AGITATION Heparin Sodium (Porcine) (Heparin -) 1,000 unit IVPUSH PRN PRN PRN Reason: Heparin Last Admin: 02/17/17 10:13 Dose: 1,000 unit Heparin Sodium (Porcine) (Heparin -) 5,000 unit IVPUSH PRN PRN PRN Reason: Heparin Last Admin: 02/14/17 11:09 Dose: 5,000 unit Hydromorphone HCl (Dilaudid Injection -) 1 mg IVPB Q4H PRN PRN Reason: PAIN Last Admin: 02/17/17 00:52 Dose: 1 mg Heparin Sodium (Porcine) 25, (000 unit/ Sodium Chloride) 500 mls @ 20 mls/hr IV TITR [facility]; 1,000 UNIT/HR PRN Reason: Protocol Last Titration: 02/17/17 10:12 Dose: 1,950 unit/hr Cefazolin Sodium/Dextrose (Ancef 2 Gm Premixed Ivpb -) 50 mls @ 100 mls/hr IVPB Q8H-IV [facility] Last Admin: 02/17/17 10:05 Dose: 100 mls/hr Potassium Chloride 20 meq/ (Dextrose) 1,010 mls @ 100 mls/hr IVPB Q10H [facility] Last Admin: 02/17/17 12:00 Dose: 100 mls/hr Lidocaine (Lidoderm Patch -) 1 patch TP DAILY [facility] Last Admin: 02/17/17 10:06 Dose: 1 patch Metoprolol Tartrate (Lopressor Injection -) 5 mg IVPUSH Q4H PRN Last Admin: 02/16/17 05:48 Dose: 5 mg Metoprolol Tartrate (Lopressor -) 50 mg PO BID [facility] Last Admin: 02/17/17 10:07 Dose: 50 mg Miscellaneous (Lidoderm Patch Removal) 1 each MC DAILY@2200 [facility] Last Admin: 02/17/17 00:53 Dose: 1 each Montelukast Sodium (Singulair -) 10 mg PO HS [facility] Last Admin: 02/16/17 22:18 Dose: 10 mg Non-Formulary Medication (Fluticasone/Salmeterol [Advair Hfa 230-21 Mcg Inhaler] ) 1 inh PO BID [facility] Ondansetron HCl (Zofran Injection) 4 mg IVPB Q6H PRN PRN Reason: NAUSEA Oxycodone HCl (Roxicodone -) 5 mg PO Q4H PRN PRN Reason: PAIN Last Admin: 02/17/17 16:14 Dose: 5 mg Polyethylene Glycol (Miralax (For Daily Use) -) 17 gm PO BID [facility] Last Admin: 02/17/17 10:09 Dose: 17 gm Potassium Chloride (K-Dur -) 20 meq PO BID [facility] Last Admin: 02/17/17 10:06 Dose: 20 meq Valacyclovir HCl (Valtrex -) 1,000 mg PO BID [facility] Last Admin: 02/17/17 10:07 Dose: 1,000 mg A/P Altered Mental Status Toxic-Metabolic Encephalopathy Persistent MSSA Bacteremia Sepsis r/o Psoas Abscess Paroxysmal Atrial Fibrillation r/o Septic Emboli Acute Kidney Injury improving LV Diastolic Dysfunction - continue antibiotics - replete lytes - increase free water - f/u pending cultures, if positive would repeat CT A/P - aspiration precuations - will make bronchodilators standing - rate controlled - continue anticoagulation - minimize sedatives - aspiration precautions - will monitor closely on telemetry, if any changes can transfer to ICU for closer monitoring
[2017-02-17] MEDS: ALPRAZolam 0.25 MG TABLET PO PRN (22:21)
[2017-02-17] MEDS: MONTELUKAST NA 10 MG TABLET PO SCH (22:21)
[2017-02-17] MEDS: ALBUTEROL SO4 2.5/IPRATROPIUM 0.5 INH SOL 3 ML VIAL.NEB. NEB SCH (22:34)
[2017-02-18] MEDS: CEFAZOLIN 2 GM/D5W 50 ML IVPB SCH ×3 (01:39→17:08)
[2017-02-18] MEDS: GABAPENTIN 100 MG CAPSULE (FP) PO SCH ×3 (06:03→22:25)
[2017-02-18] MEDS: POTASSIUM CHLORIDE 20 MEQ in DEXTROSE 5%-WATER - 1,000 ML IVPB SCH ×2 (06:03→15:50)
[2017-02-18 06:06] LABS: MCH 32.8 pg (25.7-33.7); MCHC 32.7 g/dl (32.0-35.9); MEAN CELL VOLUME 100.4 fl (80-96); MEAN PLT VOLUME 9.6 fl (7.5-11.1); PLATELET COUNT 219 K/MM3 (134-434); RDW 14.9 % (11.9-15.9); WHITE BLOOD COUNT 17.6 K/mm3 (4.0-10.0)
[2017-02-18] MEDS: ALBUTEROL SO4 2.5/IPRATROPIUM 0.5 INH SOL 3 ML VIAL.NEB. NEB SCH ×3 (06:57→22:35)
[2017-02-18 07:07] LABS: ALBUMIN 1.8 g/dl (3.4-5.0); ALK PHOS 90 U/L (45-117); ANION GAP 8 (8-16); BILIRUBIN,TOTAL 0.7 mg/dL (0.2-1.0); CO2 29 mmol/L (21-32); COCKROFT - GAULT 87.81; CREATININE 0.9 mg/dL (0.7-1.3); GLUCOSE,RANDOM 103 mg/dL (74-106); MAGNESIUM 1.8 mg/dL (1.8-2.4); SGOT/AST 35 U/L (15-37); SGPT/ALT 11 U/L (12-78); TOT PROT 6.3 g/dl (6.4-8.2)
--- NOTE | 2017-02-18 07:39 | PN ---
Progress Note (short form) - Note Progress Note: NEUROSURGERY Back pain "better" PE: Tmax 99.9, VSS Still sleepy HEENT- NC/AT; Neck- supple; Cor- RR; Lungs- no wheezes; Abd- obese, benign; Ext - No sign of DVT CN- intact; Motor- 4/5 B UE/LE except L IP/Quad/EHL/TA/gastroc/inv/ev 3 pain/ sleepines limited; Sensation- diminished LT L L4-5 WBC 17.6 last MSSA on blood culture + 1/2 from 02/14; 02-16 specimen negative x 4 days L4-5 spondylolisthesis with stenosis and mechanical LBP and L L4-5 radiculopathy MSSA bacteremia with possible L4-5 discitis/psoas inflammatory changes Temperature trend, blood culture, WBC trend, and pain all have improved somewhat On Ancef per ID Further diagnostic study per medical team
[2017-02-18 08:42] LABS: METAMYELOCYTE 1 % (0-2)
[2017-02-18 08:43] LABS: PLATELET ESTIMATE ADEQUATE (NORMAL)
[2017-02-18] MEDS: HEPARIN - 25,000 UNIT in SODIUM CHLORIDE 495 ML IV SCH ×2 (09:00→23:43)
[2017-02-18] MEDS ORDERED: PT OWN MED DRAWER 7, Y5N ONE ×3 (09:01→22:17)
[2017-02-18] MEDS: valACYclovir HCL 500 MG TABLET (FP) PO SCH ×2 (09:03→22:26)
[2017-02-18] MEDS: DOCUSATE SODIUM 100 MG CAPSULE (FP) PO SCH ×2 (09:03→22:26)
[2017-02-18] MEDS: POTASSIUM CHLORIDE TABS 20 MEQ TABLET.ER (FP) PO SCH ×2 (09:03→22:25)
[2017-02-18] MEDS: METOPROLOL TARTRATE 50 MG TABLET (FP) PO SCH ×2 (09:04→22:26)
[2017-02-18] MEDS: oxyCODONE HCL 5 MG TABLET PO PRN (09:09)
[2017-02-18] MEDS: ACETAMINOPHEN 325 MG TABLET (FP) PO PRN (09:17)
[2017-02-18] MEDS: POLYETHYLENE GLYCOL 3350 119 GM BTL PO SCH ×2 (09:18→23:42)
[2017-02-18] MEDS: LIDOCAINE 5% TOPICAL PATCH TP SCH (09:18)
--- NOTE | 2017-02-18 10:31 | PN ---
Progress Note (short form) - Note Progress Note: Patient seen and examined. Patient is smiling and talking more coherently this morning. Still having pain in his back and his left foot. Unfortunately blood cultures even from February 16 are now showing MSSA. Being followed by infectious disease cardiology and pulmonary physicians. White count 17,600 similar to yesterday. On exam: Vital Signs Temp 99.0 F 02/18/17 14:00 Pulse 78 02/18/17 14:00 Resp 22 02/18/17 14:00 BP 113/67 02/18/17 14:00 Pulse Ox 92 L 02/18/17 09:00 Intake & Output 02/17/17 02/18/17 02/18/17 23:59 11:59 23:59 Intake Total 1040 Output Total 900 400 Balance 140 -400 Intake: IV 750 Heparin - 25,000 Unit In 250 Normal Saline - 495 ml @ 1,000 UNIT/HR 20 mls/hr IV TITR [facility] Rx#: [id number] LH #22 02/13/17 500 IVPB 50 Oral 240 Output: Urine 900 400 Fragoso 900 400 Other: Voiding Method Indwelling Catheter Indwelling Catheter Bowel Movement Yes # Bowel Movements 1 patient more alert Tongue dry and speech a little difficult Neck supple. Chest decreased breath sounds and a few rales. Heart tachycardia but regular. Abdomen soft Erythema or and swelling left foot looks improved. Abnormal Lab Results 02/18/17 02/18/17 02/18/17 02:00 05:35 05:35 WBC 17.6 H RBC 3.47 L Hgb 11.4 L Hct 34.8 L MCV 100.4 H Neutrophils % 89.0 H Lymphocytes % 3.0 L D PTT (Actin FS) 54.5 H 74.2 H D BUN Calcium ALT Total Protein Albumin 02/18/17 05:35 WBC RBC Hgb Hct MCV Neutrophils % Lymphocytes % PTT (Actin FS) BUN 28 H Calcium 8.0 L ALT 11 L D Total Protein 6.3 L Albumin 1.8 L impression: Persistent bacteremia with MSSA. Low back pain and left foot pain continues. Elevated WBC 17,600 Atrial fibrillation to normal sinus rhythm on anticoagulant. Periods of confusion slightly improved. Plan: MRI with contrast as kidney lab is improved. Followup lab and multiple consultants. Problem List - Problems (1) Atrial fibrillation with rapid ventricular response Code(s): I48.91 - UNSPECIFIED ATRIAL FIBRILLATION (2) Back pain Code(s): M54.9 - DORSALGIA, UNSPECIFIED Qualifiers: Back pain location: low back pain Chronicity: acute Back pain laterality: bilateral Sciatica presence: without sciatica Qualified Code(s): M54.5 - Low back pain (3) Sepsis Code(s): A41.9 - SEPSIS, UNSPECIFIED ORGANISM (4) ALBERTO (acute kidney injury) Code(s): N17.9 - ACUTE KIDNEY FAILURE, UNSPECIFIED (5) Hypotension Code(s): I95.9 - HYPOTENSION, UNSPECIFIED Qualifiers: Hypotension type: unspecified hypotension type Qualified Code(s): I95.9 - Hypotension, unspecified (6) Lactic acidosis Code(s): E87.2 - ACIDOSIS (7) Sepsis associated hypotension Code(s): A41.9 - SEPSIS, UNSPECIFIED ORGANISM (8) AAA (abdominal aortic aneurysm) without rupture Code(s): I71.4 - ABDOMINAL AORTIC ANEURYSM, WITHOUT RUPTURE (9) Pain Code(s): R52 - PAIN, UNSPECIFIED (10) Foot pain, left Code(s): M79.672 - PAIN IN LEFT FOOT
--- NOTE | 2017-02-18 11:48 | PN ---
Progress Note, Physician History of Present Illness: Lethargic, persistently bacteremic. Remains in SR. - Current Medication List Current Medications: Active Medications Acetaminophen (Tylenol -) 650 mg PO Q4H PRN PRN Reason: FEVER OR PAIN Last Admin: 02/18/17 09:17 Dose: 650 mg Albuterol Sulfate (Ventolin 0.083% Nebulizer Soln -) 1 amp NEB Q4H PRN PRN Reason: SHORT OF BREATH/WHEEZING Albuterol/Ipratropium (Duoneb -) 1 amp NEB TIDR [facility] Last Admin: 02/18/17 06:57 Dose: 1 amp Alprazolam (Xanax -) 0.25 mg PO Q6H PRN Last Admin: 02/17/17 22:21 Dose: 0.25 mg Diltiazem HCl (Cardizem Injection -) 10 mg IVPUSH Q4H PRN PRN Reason: TACHYCARDIA Last Admin: 02/13/17 12:13 Dose: 10 mg Diltiazem HCl (Cardizem Cd -) 180 mg PO DAILY [facility] Last Admin: 02/18/17 09:03 Dose: 180 mg Docusate Sodium (Colace -) 100 mg PO BID [facility] Last Admin: 02/18/17 09:03 Dose: 100 mg Gabapentin (Neurontin -) 100 mg PO TID [facility] Last Admin: 02/18/17 06:03 Dose: 100 mg Haloperidol (Haldol Injection (Fast Acting) -) 2 mg IM Q4H PRN PRN Reason: AGITATION Heparin Sodium (Porcine) (Heparin -) 1,000 unit IVPUSH PRN PRN PRN Reason: Heparin Last Admin: 02/17/17 20:13 Dose: 1,000 unit Heparin Sodium (Porcine) (Heparin -) 5,000 unit IVPUSH PRN PRN PRN Reason: Heparin Last Admin: 02/14/17 11:09 Dose: 5,000 unit Hydromorphone HCl (Dilaudid Injection -) 1 mg IVPB Q4H PRN PRN Reason: PAIN Last Admin: 02/17/17 22:22 Dose: 1 mg Heparin Sodium (Porcine) 25, (000 unit/ Sodium Chloride) 500 mls @ 20 mls/hr IV TITR [facility]; 1,000 UNIT/HR PRN Reason: Protocol Last Admin: 02/18/17 09:00 Dose: 41 mls/hr Cefazolin Sodium/Dextrose (Ancef 2 Gm Premixed Ivpb -) 50 mls @ 100 mls/hr IVPB Q8H-IV [facility] Last Admin: 02/18/17 09:04 Dose: 100 mls/hr Potassium Chloride 20 meq/ (Dextrose) 1,010 mls @ 100 mls/hr IVPB Q10H [facility] Last Admin: 02/18/17 06:03 Dose: 100 mls/hr Lidocaine (Lidoderm Patch -) 1 patch TP DAILY [facility] Last Admin: 02/18/17 09:18 Dose: 1 patch Metoprolol Tartrate (Lopressor Injection -) 5 mg IVPUSH Q4H PRN Last Admin: 02/16/17 05:48 Dose: 5 mg Metoprolol Tartrate (Lopressor -) 50 mg PO BID [facility] Last Admin: 02/18/17 09:04 Dose: 50 mg Miscellaneous (Lidoderm Patch Removal) 1 each MC DAILY@2200 [facility] Last Admin: 02/17/17 22:21 Dose: 1 each Montelukast Sodium (Singulair -) 10 mg PO HS [facility] Last Admin: 02/17/17 22:21 Dose: 10 mg Non-Formulary Medication (Fluticasone/Salmeterol [Advair Hfa 230-21 Mcg Inhaler] ) 1 inh PO BID [facility] Ondansetron HCl (Zofran Injection) 4 mg IVPB Q6H PRN PRN Reason: NAUSEA Oxycodone HCl (Roxicodone -) 5 mg PO Q4H PRN PRN Reason: PAIN Last Admin: 02/18/17 09:09 Dose: 5 mg Polyethylene Glycol (Miralax (For Daily Use) -) 17 gm PO BID [facility] Last Admin: 02/18/17 09:18 Dose: 17 gm Potassium Chloride (K-Dur -) 20 meq PO BID [facility] Last Admin: 02/18/17 09:03 Dose: 20 meq Valacyclovir HCl (Valtrex -) 1,000 mg PO BID [facility] Last Admin: 02/18/17 09:03 Dose: 1,000 mg - Objective Vital Signs: Vital Signs Temperature 99.2 F 02/18/17 09:00 Pulse Rate 80 02/18/17 09:00 Respiratory Rate 22 02/18/17 09:00 Blood Pressure 137/80 02/18/17 09:00 O2 Sat by Pulse Oximetry (%) 92 L 02/18/17 09:00 Constitutional: Yes: No Distress, Calm Neck: Yes: Supple Cardiovascular: Yes: Regular Rate and Rhythm Respiratory: Yes: Regular, Diminished, On Nasal O2 Gastrointestinal: Yes: Normal Bowel Sounds, Soft, Abdomen, Obese Edema: No Labs: CBC, BMP 02/18/17 05:35 02/18/17 05:35 INR, PTT INR 1.28 (0.82-1.09) H 02/15/17 06:00 Fibrinogen 668.0 mg/dL (238-498) H 02/15/17 06:00 Problem List - Problems (1) MSSA (methicillin susceptible Staphylococcus aureus) septicemia Code(s): A41.01 - SEPSIS DUE TO METHICILLIN SUSCEPTIBLE STAPHYLOCOCCUS AUREUS (2) Paroxysmal atrial fibrillation with RVR Code(s): I48.0 - PAROXYSMAL ATRIAL FIBRILLATION (3) Back pain Code(s): M54.9 - DORSALGIA, UNSPECIFIED Qualifiers: Back pain location: low back pain Chronicity: acute Back pain laterality: bilateral Sciatica presence: without sciatica Qualified Code(s): M54.5 - Low back pain (4) Thoracic aortic aneurysm without rupture Code(s): I71.2 - THORACIC AORTIC ANEURYSM, WITHOUT RUPTURE (5) 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 Code(s): K68.12 - PSOAS MUSCLE ABSCESS (6) Toxic metabolic encephalopathy Code(s): G92 - TOXIC ENCEPHALOPATHY Assessment/Plan 02/11/2017 Echo: Mildly decreased LV fxn with mild-mod anterior, anteroseptal HK with mild RV dysfunction, mild MR, [place], [place], [place], mildly dilated ascending aortic root 02/15/2017 FABIOLA: Normal LV fxn, no clots LIANNA, mild-mod MR, AR, no vegetations, PFO seen 1. Persistent MSSA bacteremia with early left iliopsoas phlegmon with improved leukocytosis 2. Paroxysmal atrial fibrillation with RVR [id number] with possible left foot thromboembolism vs septic emboli, cellulitis 3. ALBERTO and lactic acidosis due to hemodynamic alterations resolved 4. 4.1 cm TAA 5. Thrombocytopenia due to sepsis resolved 6. Acute on chronic diastolic failure resolved 7. Hypernatremia resolved 8. Toxic metabolic encephelopathy P:1. Continue Cardizem CD 180 qd and Lopressor 50 bid as hemodynamics tolerate for rate-control, hep gtt pending procedures 2. Replete K as you are, free water repletion, analgesia as needed, f/u surveillance bld cx, Ancef per sensitivities, plan for repeat imaging to R/O interval development of psoas abscess/ drainable collection
--- NOTE | 2017-02-18 13:14 | PN ---
Progress Note, Physician History of Present Illness: pulmonary alert,feeling better,-resp distress - Current Medication List Current Medications: Active Medications Acetaminophen (Tylenol -) 650 mg PO Q4H PRN PRN Reason: FEVER OR PAIN Last Admin: 02/18/17 09:17 Dose: 650 mg Albuterol Sulfate (Ventolin 0.083% Nebulizer Soln -) 1 amp NEB Q4H PRN PRN Reason: SHORT OF BREATH/WHEEZING Albuterol/Ipratropium (Duoneb -) 1 amp NEB TIDR [facility] Last Admin: 02/18/17 06:57 Dose: 1 amp Alprazolam (Xanax -) 0.25 mg PO Q6H PRN Last Admin: 02/17/17 22:21 Dose: 0.25 mg Diltiazem HCl (Cardizem Injection -) 10 mg IVPUSH Q4H PRN PRN Reason: TACHYCARDIA Last Admin: 02/13/17 12:13 Dose: 10 mg Diltiazem HCl (Cardizem Cd -) 180 mg PO DAILY [facility] Last Admin: 02/18/17 09:03 Dose: 180 mg Docusate Sodium (Colace -) 100 mg PO BID [facility] Last Admin: 02/18/17 09:03 Dose: 100 mg Gabapentin (Neurontin -) 100 mg PO TID [facility] Last Admin: 02/18/17 06:03 Dose: 100 mg Haloperidol (Haldol Injection (Fast Acting) -) 2 mg IM Q4H PRN PRN Reason: AGITATION Heparin Sodium (Porcine) (Heparin -) 1,000 unit IVPUSH PRN PRN PRN Reason: Heparin Last Admin: 02/17/17 20:13 Dose: 1,000 unit Heparin Sodium (Porcine) (Heparin -) 5,000 unit IVPUSH PRN PRN PRN Reason: Heparin Last Admin: 02/14/17 11:09 Dose: 5,000 unit Hydromorphone HCl (Dilaudid Injection -) 1 mg IVPB Q4H PRN PRN Reason: PAIN Last Admin: 02/17/17 22:22 Dose: 1 mg Heparin Sodium (Porcine) 25, (000 unit/ Sodium Chloride) 500 mls @ 20 mls/hr IV TITR [facility]; 1,000 UNIT/HR PRN Reason: Protocol Last Admin: 02/18/17 09:00 Dose: 41 mls/hr Cefazolin Sodium/Dextrose (Ancef 2 Gm Premixed Ivpb -) 50 mls @ 100 mls/hr IVPB Q8H-IV [facility] Last Admin: 02/18/17 09:04 Dose: 100 mls/hr Potassium Chloride 20 meq/ (Dextrose) 1,010 mls @ 100 mls/hr IVPB Q10H [facility] Last Admin: 02/18/17 06:03 Dose: 100 mls/hr Lidocaine (Lidoderm Patch -) 1 patch TP DAILY [facility] Last Admin: 02/18/17 09:18 Dose: 1 patch Metoprolol Tartrate (Lopressor Injection -) 5 mg IVPUSH Q4H PRN Last Admin: 02/16/17 05:48 Dose: 5 mg Metoprolol Tartrate (Lopressor -) 50 mg PO BID [facility] Last Admin: 02/18/17 09:04 Dose: 50 mg Miscellaneous (Lidoderm Patch Removal) 1 each MC DAILY@2200 [facility] Last Admin: 02/17/17 22:21 Dose: 1 each Montelukast Sodium (Singulair -) 10 mg PO HS [facility] Last Admin: 02/17/17 22:21 Dose: 10 mg Non-Formulary Medication (Fluticasone/Salmeterol [Advair Hfa 230-21 Mcg Inhaler] ) 1 inh PO BID [facility] Ondansetron HCl (Zofran Injection) 4 mg IVPB Q6H PRN PRN Reason: NAUSEA Oxycodone HCl (Roxicodone -) 5 mg PO Q4H PRN PRN Reason: PAIN Last Admin: 02/18/17 09:09 Dose: 5 mg Polyethylene Glycol (Miralax (For Daily Use) -) 17 gm PO BID [facility] Last Admin: 02/18/17 09:18 Dose: 17 gm Potassium Chloride (K-Dur -) 20 meq PO BID [facility] Last Admin: 02/18/17 09:03 Dose: 20 meq Valacyclovir HCl (Valtrex -) 1,000 mg PO BID [facility] Last Admin: 02/18/17 09:03 Dose: 1,000 mg - Objective Vital Signs: Vital Signs Temperature 99.2 F 02/18/17 09:00 Pulse Rate 80 02/18/17 09:00 Respiratory Rate 22 02/18/17 09:00 Blood Pressure 137/80 02/18/17 09:00 O2 Sat by Pulse Oximetry (%) 92 L 02/18/17 09:00 Constitutional: Yes: Well Nourished, Calm Eyes: Yes: WNL HENT: Yes: WNL Neck: Yes: WNL Cardiovascular: Yes: Pulse Irregular, S1, S2 Respiratory: Yes: Rhonchi (few scttered rhonchi) Gastrointestinal: Yes: Normal Bowel Sounds, Soft Extremities: Yes: WNL Edema: No Labs: CBC, BMP 02/18/17 05:35 02/18/17 05:35 INR, PTT INR 1.28 (0.82-1.09) H 02/15/17 06:00 Fibrinogen 668.0 mg/dL (238-498) H 02/15/17 06:00 Assessment/Plan Problem List - Problems (1) AAA (abdominal aortic aneurysm) without rupture Code(s): I71.4 - ABDOMINAL AORTIC ANEURYSM, WITHOUT RUPTURE (2) ALBERTO (acute kidney injury) Code(s): N17.9 - ACUTE KIDNEY FAILURE, UNSPECIFIED (3) Atrial fibrillation with rapid ventricular response Code(s): I48.91 - UNSPECIFIED ATRIAL FIBRILLATION (4) Back pain Code(s): M54.9 - DORSALGIA, UNSPECIFIED Qualifiers: Back pain location: low back pain Chronicity: acute Back pain laterality: bilateral Sciatica presence: without sciatica Qualified Code(s): M54.5 - Low back pain (5) Foot pain, left Code(s): M79.672 - PAIN IN LEFT FOOT (6) Hypotension Code(s): I95.9 - HYPOTENSION, UNSPECIFIED Qualifiers: Hypotension type: unspecified hypotension type Qualified Code(s): I95.9 - Hypotension, unspecified (7) MSSA (methicillin susceptible Staphylococcus aureus) septicemia Code(s): A41.01 - SEPSIS DUE TO METHICILLIN SUSCEPTIBLE STAPHYLOCOCCUS AUREUS (8) Paroxysmal atrial fibrillation with RVR Code(s): I48.0 - PAROXYSMAL ATRIAL FIBRILLATION (9) Sepsis Code(s): A41.9 - SEPSIS, UNSPECIFIED ORGANISM (10) Thoracic aortic aneurysm without rupture Code(s): I71.2 - THORACIC AORTIC ANEURYSM, WITHOUT RUPTURE Assessment/Plan O2 at maintain sat 90% ABX Per ID Inhaled bronchodilators AC with IV Heparin Strict I&O BD TX DR MARTE
--- NOTE | 2017-02-18 15:10 | PN ---
Progress Note, Physician History of Present Illness: Pt seen and examined at bedside. He is awake and alert. He says that he feels better than he did yesterday. - Current Medication List Current Medications: Active Medications Acetaminophen (Tylenol -) 650 mg PO Q4H PRN PRN Reason: FEVER OR PAIN Last Admin: 02/18/17 09:17 Dose: 650 mg Albuterol Sulfate (Ventolin 0.083% Nebulizer Soln -) 1 amp NEB Q4H PRN PRN Reason: SHORT OF BREATH/WHEEZING Albuterol/Ipratropium (Duoneb -) 1 amp NEB TIDR [facility] Last Admin: 02/18/17 06:57 Dose: 1 amp Alprazolam (Xanax -) 0.25 mg PO Q6H PRN Last Admin: 02/17/17 22:21 Dose: 0.25 mg Diltiazem HCl (Cardizem Injection -) 10 mg IVPUSH Q4H PRN PRN Reason: TACHYCARDIA Last Admin: 02/13/17 12:13 Dose: 10 mg Diltiazem HCl (Cardizem Cd -) 180 mg PO DAILY [facility] Last Admin: 02/18/17 09:03 Dose: 180 mg Docusate Sodium (Colace -) 100 mg PO BID [facility] Last Admin: 02/18/17 09:03 Dose: 100 mg Gabapentin (Neurontin -) 100 mg PO TID [facility] Last Admin: 02/18/17 13:14 Dose: 100 mg Haloperidol (Haldol Injection (Fast Acting) -) 2 mg IM Q4H PRN PRN Reason: AGITATION Heparin Sodium (Porcine) (Heparin -) 1,000 unit IVPUSH PRN PRN PRN Reason: Heparin Last Admin: 02/17/17 20:13 Dose: 1,000 unit Heparin Sodium (Porcine) (Heparin -) 5,000 unit IVPUSH PRN PRN PRN Reason: Heparin Last Admin: 02/14/17 11:09 Dose: 5,000 unit Hydromorphone HCl (Dilaudid Injection -) 1 mg IVPB Q4H PRN PRN Reason: PAIN Last Admin: 02/17/17 22:22 Dose: 1 mg Heparin Sodium (Porcine) 25, (000 unit/ Sodium Chloride) 500 mls @ 20 mls/hr IV TITR DOMITILA; 1,000 UNIT/HR PRN Reason: Protocol Last Admin: 02/18/17 09:00 Dose: 41 mls/hr Cefazolin Sodium/Dextrose (Ancef 2 Gm Premixed Ivpb -) 50 mls @ 100 mls/hr IVPB Q8H-IV [facility] Last Admin: 02/18/17 09:04 Dose: 100 mls/hr Potassium Chloride 20 meq/ (Dextrose) 1,010 mls @ 100 mls/hr IVPB Q10H [facility] Last Admin: 02/18/17 06:03 Dose: 100 mls/hr Lidocaine (Lidoderm Patch -) 1 patch TP DAILY [facility] Last Admin: 02/18/17 09:18 Dose: 1 patch Metoprolol Tartrate (Lopressor Injection -) 5 mg IVPUSH Q4H PRN Last Admin: 02/16/17 05:48 Dose: 5 mg Metoprolol Tartrate (Lopressor -) 50 mg PO BID [facility] Last Admin: 02/18/17 09:04 Dose: 50 mg Miscellaneous (Lidoderm Patch Removal) 1 each MC DAILY@2200 [facility] Last Admin: 02/17/17 22:21 Dose: 1 each Montelukast Sodium (Singulair -) 10 mg PO HS [facility] Last Admin: 02/17/17 22:21 Dose: 10 mg Non-Formulary Medication (Fluticasone/Salmeterol [Advair Hfa 230-21 Mcg Inhaler] ) 1 inh PO BID [facility] Ondansetron HCl (Zofran Injection) 4 mg IVPB Q6H PRN PRN Reason: NAUSEA Oxycodone HCl (Roxicodone -) 5 mg PO Q4H PRN PRN Reason: PAIN Last Admin: 02/18/17 09:09 Dose: 5 mg Polyethylene Glycol (Miralax (For Daily Use) -) 17 gm PO BID [facility] Last Admin: 02/18/17 09:18 Dose: 17 gm Potassium Chloride (K-Dur -) 20 meq PO BID [facility] Last Admin: 02/18/17 09:03 Dose: 20 meq Valacyclovir HCl (Valtrex -) 1,000 mg PO BID [facility] Last Admin: 02/18/17 09:03 Dose: 1,000 mg - Objective Vital Signs: Vital Signs Temperature 99.2 F 02/18/17 09:00 Pulse Rate 80 02/18/17 09:00 Respiratory Rate 22 02/18/17 09:00 Blood Pressure 137/80 02/18/17 09:00 O2 Sat by Pulse Oximetry (%) 92 L 02/18/17 09:00 Constitutional: Yes: Calm Eyes: Yes: Conjunctiva Clear HENT: Yes: Atraumatic Neck: Yes: Supple Cardiovascular: Yes: S1, S2 Respiratory: Yes: On Nasal O2 Gastrointestinal: Yes: Normal Bowel Sounds, Soft Genitourinary: Yes: Fragoso Present Musculoskeletal: Yes: Muscle Weakness Edema: No Neurological: Yes: Oriented Psychiatric: Yes: Oriented Labs: CBC, BMP 02/18/17 05:35 02/18/17 05:35 INR, PTT INR 1.28 (0.82-1.09) H 02/15/17 06:00 Fibrinogen 668.0 mg/dL (238-498) H 02/15/17 06:00 Problem List - Problems (1) Back pain Code(s): M54.9 - DORSALGIA, UNSPECIFIED Qualifiers: Back pain location: low back pain Chronicity: acute Back pain laterality: bilateral Sciatica presence: without sciatica Qualified Code(s): M54.5 - Low back pain (2) Hypotension Code(s): I95.9 - HYPOTENSION, UNSPECIFIED Qualifiers: Hypotension type: unspecified hypotension type Qualified Code(s): I95.9 - Hypotension, unspecified (3) ALBERTO (acute kidney injury) Code(s): N17.9 - ACUTE KIDNEY FAILURE, UNSPECIFIED Assessment/Plan Current Medications Generic Name Dose Route Start Last Admin Trade Name Freq PRN Reason Stop Dose Admin Acetaminophen 650 mg 02/10/17 15:43 02/18/17 09:17 Tylenol - PO 650 mg Q4H PRN Administration FEVER OR PAIN Albuterol Sulfate 1 amp 02/17/17 16:46 Ventolin 0.083% Nebulizer Soln - NEB Q4H PRN SHORT OF BREATH/WHEEZING Albuterol/Ipratropium 1 amp 02/17/17 22:00 02/18/17 06:57 Duoneb - NEB 1 amp TIDR DOMITILA Administration Alprazolam 0.25 mg 02/13/17 02:25 02/17/17 22:21 Xanax - PO 0.25 mg Q6H PRN Administration Diltiazem HCl 10 mg 02/12/17 07:18 02/13/17 12:13 Cardizem Injection - IVPUSH 10 mg Q4H PRN Administration TACHYCARDIA Diltiazem HCl 180 mg 02/16/17 10:00 02/18/17 09:03 Cardizem Cd - PO 180 mg DAILY [facility] Administration Docusate Sodium 100 mg 02/10/17 22:00 02/18/17 09:03 Colace - PO 100 mg BID [facility] Administration Gabapentin 100 mg 02/11/17 08:00 02/18/17 13:14 Neurontin - PO 100 mg TID [facility] Administration Haloperidol 2 mg 02/17/17 08:22 Haldol Injection (Fast Acting) - IM Q4H PRN AGITATION Heparin Sodium (Porcine) 1,000 unit 02/12/17 06:55 02/17/17 20:13 Heparin - IVPUSH 1,000 unit PRN PRN Administration Heparin Heparin Sodium (Porcine) 5,000 unit 02/12/17 06:55 02/14/17 11:09 Heparin - IVPUSH 5,000 unit PRN PRN Administration Heparin Hydromorphone HCl 1 mg 02/10/17 15:43 02/17/17 22:22 Dilaudid Injection - IVPB 1 mg Q4H PRN Administration PAIN Heparin Sodium (Porcine) 25, 500 mls @ 20 mls/hr 02/12/17 07:00 02/18/17 09:00 000 unit/ Sodium Chloride IV 41 mls/hr TITR [facility] Administration Protocol 1,000 UNIT/HR Cefazolin Sodium/Dextrose 50 mls @ 100 mls/hr 02/12/17 10:00 02/18/17 09:04 Ancef 2 Gm Premixed Ivpb - IVPB 100 mls/hr Q8H-IV [facility] Administration Potassium Chloride 20 meq/ 1,010 mls @ 100 mls/hr 02/17/17 10:15 02/18/17 06:03 Dextrose IVPB 100 mls/hr Q10H [facility] Administration Lidocaine 1 patch 02/11/17 10:00 02/18/17 09:18 Lidoderm Patch - TP 1 patch DAILY [facility] Administration Metoprolol Tartrate 5 mg 02/12/17 23:16 02/16/17 05:48 Lopressor Injection - IVPUSH 5 mg Q4H PRN Administration Metoprolol Tartrate 50 mg 02/14/17 22:00 02/18/17 09:04 Lopressor - PO 50 mg BID [facility] Administration Miscellaneous 1 each 02/11/17 22:00 02/17/17 22:21 Lidoderm Patch Removal MC 1 each DAILY@2200 [facility] Administration Montelukast Sodium 10 mg 02/10/17 22:00 02/17/17 22:21 Singulair - PO 10 mg HS [facility] Administration Non-Formulary Medication 1 inh 02/10/17 22:00 Fluticasone/Salmeterol [Advair Hfa 230-21 Mcg Inhaler] PO BID [facility] Ondansetron HCl 4 mg 02/10/17 15:43 Zofran Injection IVPB Q6H PRN NAUSEA Oxycodone HCl 5 mg 02/10/17 15:43 02/18/17 09:09 Roxicodone - PO 5 mg Q4H PRN Administration PAIN Polyethylene Glycol 17 gm 02/14/17 22:00 02/18/17 09:18 Miralax (For Daily Use) - PO 17 gm BID [facility] Administration Potassium Chloride 20 meq 02/15/17 22:00 02/18/17 09:03 K-Dur - PO 20 meq BID [facility] Administration Valacyclovir HCl 1,000 mg 02/16/17 11:00 02/18/17 09:03 Valtrex - PO 1,000 mg BID [facility] Administration Impression 1. ALBERTO 2. lactic acidosis 3. hypotension 4. hx of HTN 5. asthma 6. back pain 7. r/o dissection 8. sepsis 9. bacteremia 10. PFO 11. hypernatremia - resolving Plan - renal function is stabilizing - potassium improved - sodium is improved - pt is tolerating diet - can decrease rate of fluids - repeat labs in am Dr Traore
--- NOTE | 2017-02-18 16:22 | PN ---
Progress Note, Physician History of Present Illness: More awake and responsive Slightly confused No c/o back pain Afebrile WBC 17.6 BC (02/16)+ Follow up MRI ordered - Current Medication List Current Medications: Active Medications Acetaminophen (Tylenol -) 650 mg PO Q4H PRN PRN Reason: FEVER OR PAIN Last Admin: 02/18/17 09:17 Dose: 650 mg Albuterol Sulfate (Ventolin 0.083% Nebulizer Soln -) 1 amp NEB Q4H PRN PRN Reason: SHORT OF BREATH/WHEEZING Albuterol/Ipratropium (Duoneb -) 1 amp NEB TIDR [facility] Last Admin: 02/18/17 13:45 Dose: 1 amp Alprazolam (Xanax -) 0.25 mg PO Q6H PRN Last Admin: 02/17/17 22:21 Dose: 0.25 mg Diltiazem HCl (Cardizem Injection -) 10 mg IVPUSH Q4H PRN PRN Reason: TACHYCARDIA Last Admin: 02/13/17 12:13 Dose: 10 mg Diltiazem HCl (Cardizem Cd -) 180 mg PO DAILY [facility] Last Admin: 02/18/17 09:03 Dose: 180 mg Docusate Sodium (Colace -) 100 mg PO BID [facility] Last Admin: 02/18/17 09:03 Dose: 100 mg Gabapentin (Neurontin -) 100 mg PO TID [facility] Last Admin: 02/18/17 13:14 Dose: 100 mg Haloperidol (Haldol Injection (Fast Acting) -) 2 mg IM Q4H PRN PRN Reason: AGITATION Heparin Sodium (Porcine) (Heparin -) 1,000 unit IVPUSH PRN PRN PRN Reason: Heparin Last Admin: 02/17/17 20:13 Dose: 1,000 unit Heparin Sodium (Porcine) (Heparin -) 5,000 unit IVPUSH PRN PRN PRN Reason: Heparin Last Admin: 02/14/17 11:09 Dose: 5,000 unit Hydromorphone HCl (Dilaudid Injection -) 1 mg IVPB Q4H PRN PRN Reason: PAIN Last Admin: 02/17/17 22:22 Dose: 1 mg Heparin Sodium (Porcine) 25, (000 unit/ Sodium Chloride) 500 mls @ 20 mls/hr IV TITR [facility]; 1,000 UNIT/HR PRN Reason: Protocol Last Admin: 02/18/17 09:00 Dose: 41 mls/hr Cefazolin Sodium/Dextrose (Ancef 2 Gm Premixed Ivpb -) 50 mls @ 100 mls/hr IVPB Q8H-IV [facility] Last Admin: 02/18/17 09:04 Dose: 100 mls/hr Potassium Chloride 20 meq/ (Dextrose) 1,010 mls @ 42 mls/hr IVPB Q24H [facility] Lidocaine (Lidoderm Patch -) 1 patch TP DAILY [facility] Last Admin: 02/18/17 09:18 Dose: 1 patch Metoprolol Tartrate (Lopressor Injection -) 5 mg IVPUSH Q4H PRN Last Admin: 02/16/17 05:48 Dose: 5 mg Metoprolol Tartrate (Lopressor -) 50 mg PO BID [facility] Last Admin: 02/18/17 09:04 Dose: 50 mg Miscellaneous (Lidoderm Patch Removal) 1 each MC DAILY@2200 [facility] Last Admin: 02/17/17 22:21 Dose: 1 each Montelukast Sodium (Singulair -) 10 mg PO HS [facility] Last Admin: 02/17/17 22:21 Dose: 10 mg Non-Formulary Medication (Fluticasone/Salmeterol [Advair Hfa 230-21 Mcg Inhaler] ) 1 inh PO BID [facility] Ondansetron HCl (Zofran Injection) 4 mg IVPB Q6H PRN PRN Reason: NAUSEA Oxycodone HCl (Roxicodone -) 5 mg PO Q4H PRN PRN Reason: PAIN Last Admin: 02/18/17 09:09 Dose: 5 mg Polyethylene Glycol (Miralax (For Daily Use) -) 17 gm PO BID [facility] Last Admin: 02/18/17 09:18 Dose: 17 gm Potassium Chloride (K-Dur -) 20 meq PO BID [facility] Last Admin: 02/18/17 09:03 Dose: 20 meq Valacyclovir HCl (Valtrex -) 1,000 mg PO BID [facility] Last Admin: 02/18/17 09:03 Dose: 1,000 mg - Objective Vital Signs: Vital Signs Temperature 99.0 F 02/18/17 14:00 Pulse Rate 78 02/18/17 14:00 Respiratory Rate 22 02/18/17 14:00 Blood Pressure 113/67 02/18/17 14:00 O2 Sat by Pulse Oximetry (%) 92 L 02/18/17 09:00 Constitutional: Yes: No Distress Eyes: Yes: Conjunctiva Clear Cardiovascular: Yes: Regular Rate and Rhythm, S1, S2 Respiratory: Yes: CTA Bilaterally Gastrointestinal: Yes: Normal Bowel Sounds, Soft. No: Tenderness Extremities: Yes: Other (decreased erythema/ warmth, dorsum L foot) Labs: CBC, BMP 02/18/17 05:35 02/18/17 05:35 INR, PTT INR 1.28 (0.82-1.09) H 02/15/17 06:00 Fibrinogen 668.0 mg/dL (238-498) H 02/15/17 06:00 Assessment/Plan MSSA bacteremia/possible endocarditis Possible early psoas abscess Possible cellulitis L foot Leukocytosis- improved Thrombocytopenia resolved Azotemia- resolved Check repeat BC am Continue cefazolin Repeat imaging to R/O development of psoas abscess/ drainable collection ordered
[2017-02-18] MEDS: ALPRAZolam 0.25 MG TABLET PO PRN (22:25)
[2017-02-18] MEDS: MONTELUKAST NA 10 MG TABLET PO SCH (22:26)
[2017-02-18] MEDS: LIDOCAINE PATCH REMOVAL MC SCH (23:42)
[2017-02-19] MEDS: CEFAZOLIN 2 GM/D5W 50 ML IVPB SCH ×3 (02:28→17:52)
[2017-02-19] MEDS: ALBUTEROL SO4 2.5/IPRATROPIUM 0.5 INH SOL 3 ML VIAL.NEB. NEB SCH ×3 (05:28→22:15)
[2017-02-19] MEDS: GABAPENTIN 100 MG CAPSULE (FP) PO SCH ×3 (06:13→23:05)
[2017-02-19] MEDS ORDERED: PT OWN MED DRAWER 7, Y5N ONE ×3 (06:51→16:23)
[2017-02-19 07:19] LABS: MCH 33.7 pg (25.7-33.7); MCHC 33.5 g/dl (32.0-35.9); MEAN CELL VOLUME 100.7 fl (80-96); PLATELET COUNT 241 K/MM3 (134-434); RDW 14.5 % (11.9-15.9); WHITE BLOOD COUNT 19.5 K/mm3 (4.0-10.0)
[2017-02-19 07:53] LABS: PLATELET ESTIMATE ADEQUATE (NORMAL)
[2017-02-19 07:54] LABS: POLYCHROMASIA 1+
[2017-02-19 09:08] LABS: ALBUMIN 1.8 g/dl (3.4-5.0); ALK PHOS 90 U/L (45-117); ANION GAP 11 (8-16); BILIRUBIN,TOTAL 0.9 mg/dL (0.2-1.0); CALCIUM 7.9 mg/dL (8.5-10.1); CO2 26 mmol/L (21-32); COCKROFT - GAULT 87.81; CREATININE 0.9 mg/dL (0.7-1.3); GLUCOSE,RANDOM 83 mg/dL (74-106); MAGNESIUM 1.9 mg/dL (1.8-2.4); SGOT/AST 32 U/L (15-37); SGPT/ALT 13 U/L (12-78); TOT PROT 6.3 g/dl (6.4-8.2)
--- NOTE | 2017-02-19 09:09 | PN ---
Progress Note (short form) - Note Progress Note: NEUROSURGERY Back pain unchanged PE: Tmax 99.5, VSS Still sleepy Being cleaned by aides HEENT- NC/AT; Neck- supple; Cor- RR; Lungs- no wheezes; Abd- obese, benign; Ext - No sign of DVT CN- intact; Motor- 4/5 B UE/LE except L IP/Quad/EHL/TA/gastroc/inv/ev 3 pain/ sleepines limited; Sensation- diminished LT L L4-5 WBC 19.5 MSSA on blood culture + 1/2 from 02/14; 02-16 specimen + 1/2 MSSA L4-5 spondylolisthesis with stenosis and mechanical LBP and L L4-5 radiculopathy MSSA bacteremia with possible L4-5 discitis/psoas inflammatory changes Care d/w Dr Herrera On Ancef per ID Repeat MRI ordered to assess potentially psoas collection?
[2017-02-19] MEDS: HEPARIN - 25,000 UNIT in SODIUM CHLORIDE 495 ML IV SCH ×2 (09:27→13:15)
[2017-02-19] MEDS: METOPROLOL TARTRATE 50 MG TABLET (FP) PO SCH ×2 (09:29→23:05)
[2017-02-19] MEDS: LIDOCAINE 5% TOPICAL PATCH TP SCH (09:29)
[2017-02-19] MEDS: POTASSIUM CHLORIDE TABS 20 MEQ TABLET.ER (FP) PO SCH ×2 (09:29→23:05)
[2017-02-19] MEDS: DOCUSATE SODIUM 100 MG CAPSULE (FP) PO SCH ×2 (09:29→22:42)
[2017-02-19] MEDS: valACYclovir HCL 500 MG TABLET (FP) PO SCH ×2 (09:30→23:05)
[2017-02-19] MEDS: POLYETHYLENE GLYCOL 3350 119 GM BTL PO SCH ×2 (09:30→22:42)
--- NOTE | 2017-02-19 11:40 | PN ---
Progress Note (short form) - Note Progress Note: Patient seen and examined. Chart reviewed at length. Events reviewed. Currently sitting up in bed, nasal O2 in place. Alert and responsive, but appears mildly lethargic with some persistence of confusion. Denies new chest discomfort or palpitations. Labs, telemetry and internal controls consultant notes reviewed. Selected Entries 02/19/17 02/19/17 08:57 09:04 Temperature 98.2 F Pulse Rate 79 Respiratory 20 Rate Blood Pressure 144/8 O2 Sat by Pulse 94 L Oximetry (%) Oxygen Delivery Nasal Cannula Method Oxygen Flow 3 Rate Laboratory Tests 02/19/17 02/19/17 02/19/17 06:00 06:00 06:00 WBC 19.5 H Hgb 10.9 L Hct 32.5 L Plt Count 241 PTT (Actin FS) 60.9 H Sodium 137 Potassium 4.3 Chloride 100 Carbon Dioxide 26 BUN 20 H D Creatinine 0.9 Random Glucose 83 Calcium 7.9 L Magnesium 1.9 Total Bilirubin 0.9 D AST 32 ALT 13 Alkaline Phosphatase 90 Total Protein 6.3 L Albumin 1.8 L Chest Clear No wheezing noted No rhonchi Cor Irregular with occasional ectopic Telemetry Sinus rhythm with unifocal PVCs Abd Obese No mass or tenderness BS positive Ext No edema No phlebitis Neuro No new focal deficit Periods of confusion Fragoso catheter in place Assessment and Plan MSSA septicemia On Rx Back Pain Possible discitis or psoas muscle abscess Reassess Leukocytosis Noted Recheck Anemia 10.9/32.5 Likely multifactorial with contribution of acute/chronic disease Hypoalbuminemia Severe 1.8 Multifactorial related to acute/chronic disease and nutritional factors On Heparin PTT noted Osteoarthritis H/O L4-5 radiculitis H/O Left foot pain and cellulitis Stable Thrombocytopenia 241K Resolved Likely related to septicemia Monitor while on heparin Hypotension H/O Hypertension Monitor fluid status Renal insufficiency 20/0.9 Monitor Diastolic CHF Stable Toxic/metabolic Encephalopathy Still demonstrating periods of confusion but improved according to daily notes AAA and TAA Monitor carefully as patient is on A/C H/O Afib with RVR Currently in NSR with PVCs Hypernatremia Stable 137 COPD As described in previous notes Stable On O2 PFO Seen on FABIOLA Discussed with Dr Calvert No new Rx required H/O Hernia repair Continue current Rx as outlined Case discussed at length with patient's .
--- NOTE | 2017-02-19 12:08 | PN ---
Progress Note, Physician Chief Complaint: Events noted. Periods of confusion History of Present Illness: Patient was seen and examined. Awake. Chart was reviewed Spoke with his by bedside regarding his intermittent confusion - Current Medication List Current Medications: Active Medications Acetaminophen (Tylenol -) 650 mg PO Q4H PRN PRN Reason: FEVER OR PAIN Last Admin: 02/18/17 09:17 Dose: 650 mg Albuterol Sulfate (Ventolin 0.083% Nebulizer Soln -) 1 amp NEB Q4H PRN PRN Reason: SHORT OF BREATH/WHEEZING Albuterol/Ipratropium (Duoneb -) 1 amp NEB TIDR [facility] Last Admin: 02/19/17 05:28 Dose: 1 amp Alprazolam (Xanax -) 0.25 mg PO Q6H PRN Last Admin: 02/18/17 22:25 Dose: 0.25 mg Diltiazem HCl (Cardizem Injection -) 10 mg IVPUSH Q4H PRN PRN Reason: TACHYCARDIA Last Admin: 02/13/17 12:13 Dose: 10 mg Diltiazem HCl (Cardizem Cd -) 180 mg PO DAILY [facility] Last Admin: 02/19/17 09:29 Dose: 180 mg Docusate Sodium (Colace -) 100 mg PO BID [facility] Last Admin: 02/19/17 09:29 Dose: 100 mg Gabapentin (Neurontin -) 100 mg PO TID [facility] Last Admin: 02/19/17 06:13 Dose: 100 mg Haloperidol (Haldol Injection (Fast Acting) -) 2 mg IM Q4H PRN PRN Reason: AGITATION Heparin Sodium (Porcine) (Heparin -) 1,000 unit IVPUSH PRN PRN PRN Reason: Heparin Last Admin: 02/17/17 20:13 Dose: 1,000 unit Heparin Sodium (Porcine) (Heparin -) 5,000 unit IVPUSH PRN PRN PRN Reason: Heparin Last Admin: 02/14/17 11:09 Dose: 5,000 unit Hydromorphone HCl (Dilaudid Injection -) 1 mg IVPB Q4H PRN PRN Reason: PAIN Last Admin: 02/17/17 22:22 Dose: 1 mg Heparin Sodium (Porcine) 25, (000 unit/ Sodium Chloride) 500 mls @ 20 mls/hr IV TITR [facility]; 1,000 UNIT/HR PRN Reason: Protocol Last Admin: 02/19/17 09:27 Dose: 41 mls/hr Cefazolin Sodium/Dextrose (Ancef 2 Gm Premixed Ivpb -) 50 mls @ 100 mls/hr IVPB Q8H-IV [facility] Last Admin: 02/19/17 09:28 Dose: 100 mls/hr Potassium Chloride 20 meq/ (Dextrose) 1,010 mls @ 42 mls/hr IVPB Q24H [facility] Last Admin: 02/18/17 15:50 Dose: 42 mls/hr Lidocaine (Lidoderm Patch -) 1 patch TP DAILY [facility] Last Admin: 02/19/17 09:29 Dose: 1 patch Metoprolol Tartrate (Lopressor Injection -) 5 mg IVPUSH Q4H PRN Last Admin: 02/16/17 05:48 Dose: 5 mg Metoprolol Tartrate (Lopressor -) 50 mg PO BID [facility] Last Admin: 02/19/17 09:29 Dose: 50 mg Miscellaneous (Lidoderm Patch Removal) 1 each MC DAILY@2200 [facility] Last Admin: 02/18/17 23:42 Dose: 1 each Montelukast Sodium (Singulair -) 10 mg PO HS [facility] Last Admin: 02/18/17 22:26 Dose: 10 mg Non-Formulary Medication (Fluticasone/Salmeterol [Advair Hfa 230-21 Mcg Inhaler] ) 1 inh PO BID [facility] Ondansetron HCl (Zofran Injection) 4 mg IVPB Q6H PRN PRN Reason: NAUSEA Oxycodone HCl (Roxicodone -) 5 mg PO Q4H PRN PRN Reason: PAIN Last Admin: 02/18/17 09:09 Dose: 5 mg Polyethylene Glycol (Miralax (For Daily Use) -) 17 gm PO BID [facility] Last Admin: 02/19/17 09:30 Dose: Not Given Potassium Chloride (K-Dur -) 20 meq PO BID [facility] Last Admin: 02/19/17 09:29 Dose: 20 meq Valacyclovir HCl (Valtrex -) 1,000 mg PO BID [facility] Last Admin: 02/19/17 09:30 Dose: 1,000 mg - Objective Vital Signs: Vital Signs Temperature 98.2 F 02/19/17 09:04 Pulse Rate 79 02/19/17 09:04 Respiratory Rate 20 02/19/17 09:04 Blood Pressure 144/80 02/19/17 09:04 O2 Sat by Pulse Oximetry (%) 94 L 02/19/17 08:57 Neck: Yes: Supple Cardiovascular: Yes: Regular Rate and Rhythm, S1, S2 Respiratory: Yes: Diminished Gastrointestinal: Yes: Normal Bowel Sounds, Soft. 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 Code(s): K68.12 - PSOAS MUSCLE ABSCESS (4) Lactic acidosis Code(s): E87.2 - ACIDOSIS (5) MSSA (methicillin susceptible Staphylococcus aureus) septicemia Code(s): A41.01 - SEPSIS DUE TO METHICILLIN SUSCEPTIBLE STAPHYLOCOCCUS AUREUS (6) SIRS (systemic inflammatory response syndrome) Code(s): R65.10 - SIRS OF NON-INFECTIOUS ORIGIN W/O ACUTE ORGAN DYSFUNCTION (7) Sepsis Code(s): A41.9 - SEPSIS, UNSPECIFIED ORGANISM (8) Thoracic aortic aneurysm without rupture Code(s): I71.2 - THORACIC AORTIC ANEURYSM, WITHOUT RUPTURE (9) Thrombocytopenia Code(s): D69.6 - THROMBOCYTOPENIA, UNSPECIFIED (10) Toxic metabolic encephalopathy Code(s): G92 - TOXIC ENCEPHALOPATHY Assessment/Plan 1. Persistent MSSA bacteremia - rule out endocarditis in addition to early left iliopsoas inflammation 2. Paroxysmal atrial fibrillation [id number] of 2 with possible left foot thromboembolism vs septic emboli 3. ALBERTO and lactic acidosis 4. 4.1 cm TAA 5. Thrombocytopenia due to sepsis 6. Acute on chronic diastolic failure improved 7. Toxic metabolic encephalopathy 8. PFO PLAN: 1. Cardizem CD and Lopressor as hemodynamics tolerate for rate-control. Continue Heparin drip with caution given thrombocytopenia. Eventually oral anticoagulation is to be started if not contraindicated 2. Monitor BMP. Continue antibiotic coverage 3. Await repeat imaging to rule out psoas abscess. 4. Follow mental status Further plans are to follow Jaquan Calvert MD
--- NOTE | 2017-02-19 12:40 | PN ---
Progress Note, Physician History of Present Illness: Renal f/u Pt c/o some back pain For MRI to R/O a Discitis since pt has a bacteremia - Current Medication List Current Medications: Active Medications Acetaminophen (Tylenol -) 650 mg PO Q4H PRN PRN Reason: FEVER OR PAIN Last Admin: 02/18/17 09:17 Dose: 650 mg Albuterol Sulfate (Ventolin 0.083% Nebulizer Soln -) 1 amp NEB Q4H PRN PRN Reason: SHORT OF BREATH/WHEEZING Albuterol/Ipratropium (Duoneb -) 1 amp NEB TIDR [facility] Last Admin: 02/19/17 05:28 Dose: 1 amp Alprazolam (Xanax -) 0.25 mg PO Q6H PRN Last Admin: 02/18/17 22:25 Dose: 0.25 mg Diltiazem HCl (Cardizem Injection -) 10 mg IVPUSH Q4H PRN PRN Reason: TACHYCARDIA Last Admin: 02/13/17 12:13 Dose: 10 mg Diltiazem HCl (Cardizem Cd -) 180 mg PO DAILY [facility] Last Admin: 02/19/17 09:29 Dose: 180 mg Docusate Sodium (Colace -) 100 mg PO BID [facility] Last Admin: 02/19/17 09:29 Dose: 100 mg Gabapentin (Neurontin -) 100 mg PO TID [facility] Last Admin: 02/19/17 06:13 Dose: 100 mg Haloperidol (Haldol Injection (Fast Acting) -) 2 mg IM Q4H PRN PRN Reason: AGITATION Heparin Sodium (Porcine) (Heparin -) 1,000 unit IVPUSH PRN PRN PRN Reason: Heparin Last Admin: 02/17/17 20:13 Dose: 1,000 unit Heparin Sodium (Porcine) (Heparin -) 5,000 unit IVPUSH PRN PRN PRN Reason: Heparin Last Admin: 02/14/17 11:09 Dose: 5,000 unit Hydromorphone HCl (Dilaudid Injection -) 1 mg IVPB Q4H PRN PRN Reason: PAIN Last Admin: 02/17/17 22:22 Dose: 1 mg Heparin Sodium (Porcine) 25, (000 unit/ Sodium Chloride) 500 mls @ 20 mls/hr IV TITR [facility]A; 1,000 UNIT/HR PRN Reason: Protocol Last Admin: 02/19/17 09:27 Dose: 41 mls/hr Cefazolin Sodium/Dextrose (Ancef 2 Gm Premixed Ivpb -) 50 mls @ 100 mls/hr IVPB Q8H-IV [facility] Last Admin: 02/19/17 09:28 Dose: 100 mls/hr Potassium Chloride 20 meq/ (Dextrose) 1,010 mls @ 42 mls/hr IVPB Q24H [facility] Last Admin: 02/18/17 15:50 Dose: 42 mls/hr Lidocaine (Lidoderm Patch -) 1 patch TP DAILY [facility] Last Admin: 02/19/17 09:29 Dose: 1 patch Metoprolol Tartrate (Lopressor Injection -) 5 mg IVPUSH Q4H PRN Last Admin: 02/16/17 05:48 Dose: 5 mg Metoprolol Tartrate (Lopressor -) 50 mg PO BID [facility] Last Admin: 02/19/17 09:29 Dose: 50 mg Miscellaneous (Lidoderm Patch Removal) 1 each MC DAILY@2200 [facility] Last Admin: 02/18/17 23:42 Dose: 1 each Montelukast Sodium (Singulair -) 10 mg PO HS [facility] Last Admin: 02/18/17 22:26 Dose: 10 mg Non-Formulary Medication (Fluticasone/Salmeterol [Advair Hfa 230-21 Mcg Inhaler] ) 1 inh PO BID [facility] Ondansetron HCl (Zofran Injection) 4 mg IVPB Q6H PRN PRN Reason: NAUSEA Oxycodone HCl (Roxicodone -) 5 mg PO Q4H PRN PRN Reason: PAIN Last Admin: 02/18/17 09:09 Dose: 5 mg Polyethylene Glycol (Miralax (For Daily Use) -) 17 gm PO BID [facility] Last Admin: 02/19/17 09:30 Dose: Not Given Potassium Chloride (K-Dur -) 20 meq PO BID [facility] Last Admin: 02/19/17 09:29 Dose: 20 meq Valacyclovir HCl (Valtrex -) 1,000 mg PO BID [facility] Last Admin: 02/19/17 09:30 Dose: 1,000 mg - Objective Vital Signs: Vital Signs Temperature 98.2 F 02/19/17 09:04 Pulse Rate 79 02/19/17 09:04 Respiratory Rate 20 02/19/17 09:04 Blood Pressure 144/8 02/19/17 09:04 O2 Sat by Pulse Oximetry (%) 94 L 02/19/17 08:57 Constitutional: Yes: No Distress Cardiovascular: Yes: S1, S2. No: JVD Respiratory: Yes: CTA Bilaterally Gastrointestinal: Yes: Soft. No: Tenderness, Rebound Genitourinary: No: Bladder Distention Edema: LLE: Trace, RLE: Trace Labs: CBC, BMP 02/19/17 06:00 02/19/17 06:00 INR, PTT INR 1.28 (0.82-1.09) H 02/15/17 06:00 Fibrinogen 668.0 mg/dL (238-498) H 02/15/17 06:00 Assessment/Plan Impression 1. ALBERTO resolved as has the hypernatremia 2. Back pain R/O Discitis 3. Hypotension 4. Hx of HTN 5. Asthma 6. PAF 7. S/P Hypernatremia Plan - Taper off the IVF - MRI of LSS to be done - Abx as per ID - Anticoagulation as per PMD - Rpt labs in am as ordered Dr Nunez
--- NOTE | 2017-02-19 13:03 | PN ---
Progress Note, Physician History of Present Illness: Afebrile No c/o back pain No c/o fever/ chills Alternating episodes of confusion and lucency per - Current Medication List Current Medications: Active Medications Acetaminophen (Tylenol -) 650 mg PO Q4H PRN PRN Reason: FEVER OR PAIN Last Admin: 02/18/17 09:17 Dose: 650 mg Albuterol Sulfate (Ventolin 0.083% Nebulizer Soln -) 1 amp NEB Q4H PRN PRN Reason: SHORT OF BREATH/WHEEZING Albuterol/Ipratropium (Duoneb -) 1 amp NEB TIDR [facility] Last Admin: 02/19/17 05:28 Dose: 1 amp Alprazolam (Xanax -) 0.25 mg PO Q6H PRN Last Admin: 02/18/17 22:25 Dose: 0.25 mg Diltiazem HCl (Cardizem Injection -) 10 mg IVPUSH Q4H PRN PRN Reason: TACHYCARDIA Last Admin: 02/13/17 12:13 Dose: 10 mg Diltiazem HCl (Cardizem Cd -) 180 mg PO DAILY [facility] Last Admin: 02/19/17 09:29 Dose: 180 mg Docusate Sodium (Colace -) 100 mg PO BID [facility] Last Admin: 02/19/17 09:29 Dose: 100 mg Gabapentin (Neurontin -) 100 mg PO TID [facility] Last Admin: 02/19/17 06:13 Dose: 100 mg Haloperidol (Haldol Injection (Fast Acting) -) 2 mg IM Q4H PRN PRN Reason: AGITATION Heparin Sodium (Porcine) (Heparin -) 1,000 unit IVPUSH PRN PRN PRN Reason: Heparin Last Admin: 02/17/17 20:13 Dose: 1,000 unit Heparin Sodium (Porcine) (Heparin -) 5,000 unit IVPUSH PRN PRN PRN Reason: Heparin Last Admin: 02/14/17 11:09 Dose: 5,000 unit Hydromorphone HCl (Dilaudid Injection -) 1 mg IVPB Q4H PRN PRN Reason: PAIN Last Admin: 02/17/17 22:22 Dose: 1 mg Heparin Sodium (Porcine) 25, (000 unit/ Sodium Chloride) 500 mls @ 20 mls/hr IV TITR [facility]; 1,000 UNIT/HR PRN Reason: Protocol Last Admin: 02/19/17 09:27 Dose: 41 mls/hr Cefazolin Sodium/Dextrose (Ancef 2 Gm Premixed Ivpb -) 50 mls @ 100 mls/hr IVPB Q8H-IV [facility] Last Admin: 02/19/17 09:28 Dose: 100 mls/hr Potassium Chloride 20 meq/ (Dextrose) 1,010 mls @ 42 mls/hr IVPB Q24H [facility] Last Admin: 02/18/17 15:50 Dose: 42 mls/hr Lidocaine (Lidoderm Patch -) 1 patch TP DAILY [facility] Last Admin: 02/19/17 09:29 Dose: 1 patch Metoprolol Tartrate (Lopressor Injection -) 5 mg IVPUSH Q4H PRN Last Admin: 02/16/17 05:48 Dose: 5 mg Metoprolol Tartrate (Lopressor -) 50 mg PO BID [facility] Last Admin: 02/19/17 09:29 Dose: 50 mg Miscellaneous (Lidoderm Patch Removal) 1 each MC DAILY@2200 [facility] Last Admin: 02/18/17 23:42 Dose: 1 each Montelukast Sodium (Singulair -) 10 mg PO HS [facility] Last Admin: 02/18/17 22:26 Dose: 10 mg Non-Formulary Medication (Fluticasone/Salmeterol [Advair Hfa 230-21 Mcg Inhaler] ) 1 inh PO BID [facility] Ondansetron HCl (Zofran Injection) 4 mg IVPB Q6H PRN PRN Reason: NAUSEA Oxycodone HCl (Roxicodone -) 5 mg PO Q4H PRN PRN Reason: PAIN Last Admin: 02/18/17 09:09 Dose: 5 mg Polyethylene Glycol (Miralax (For Daily Use) -) 17 gm PO BID [facility] Last Admin: 02/19/17 09:30 Dose: Not Given Potassium Chloride (K-Dur -) 20 meq PO BID [facility] Last Admin: 02/19/17 09:29 Dose: 20 meq Valacyclovir HCl (Valtrex -) 1,000 mg PO BID [facility] Last Admin: 02/19/17 09:30 Dose: 1,000 mg - Objective Vital Signs: Vital Signs Temperature 98.2 F 02/19/17 09:04 Pulse Rate 79 02/19/17 09:04 Respiratory Rate 20 02/19/17 09:04 Blood Pressure 144/8 02/19/17 09:04 O2 Sat by Pulse Oximetry (%) 94 L 02/19/17 08:57 Constitutional: Yes: No Distress Eyes: Yes: Conjunctiva Clear Cardiovascular: Yes: Regular Rate and Rhythm, S1, S2 Respiratory: Yes: CTA Bilaterally Gastrointestinal: Yes: Normal Bowel Sounds, Soft, Abdomen, Obese. No: Tenderness Labs: CBC, BMP 02/19/17 06:00 02/19/17 06:00 INR, PTT INR 1.28 (0.82-1.09) H 02/15/17 06:00 Fibrinogen 668.0 mg/dL (238-498) H 02/15/17 06:00 Assessment/Plan MSSA bacteremia/probable endocarditis Possible early psoas abscess Possible cellulitis L foot Leukocytosis- improved Thrombocytopenia resolved Azotemia- resolved Check repeat BC Continue cefazolin Repeat imaging to R/O development of psoas abscess/ drainable collection ordered
[2017-02-19] MEDS: POTASSIUM CHLORIDE 20 MEQ in DEXTROSE 5%-WATER - 1,000 ML IVPB SCH ×2 (13:14→15:25)
--- NOTE | 2017-02-19 21:57 | HOSP ---
Subjective - Review of Symptoms Events since last encounter: Rapid response called duet o patient found kneeling on floor at side of bed. Nurse states she did not her a thump or loud noise that would indicate a fall. Nurse states patient was attempting to walk tot he bathroom, although patient has not been ambulating and has not been able to stand up on his own. Upon entering room patient was kneeling on floor asking for help to get up. Patient denies loss of consciousness, tripping, head injury or any other bodily injury. Patient denies chest pain, shortness of breath, [place], lightheadedness. General: No: Chills, Night Sweats, Fatigue, Malaise, Appetite HEENT: No: Head Aches, Visual Changes, Eye Pain, Ear Pain, Post Nasal Drip Pulmonary: No: Dyspnea, Cough Cardiovascular: No: Chest Pain, Palpitations, Orthopnea, Light Headedness Gastrointestinal: No: Nausea, Vomiting, Abdominal Pain Genitourinary: No: Dysuria, Frequency Musculoskeletal: Yes: Back Pain, Decreased ROM, Joint Pain, Muscle Weakness ( bilateral leg weakness) Neurological: Yes: Weakness, Confusion (nurse states that he has been confused since been in hospital ), Other (unsteady gait) Physical Examination Vital Signs: Vital Signs Temperature 98.8 F 02/19/17 14:00 Pulse Rate 84 02/19/17 14:00 Respiratory Rate 20 02/19/17 14:00 Blood Pressure 133/78 02/19/17 14:00 O2 Sat by Pulse Oximetry (%) 94 L 02/19/17 08:57 Findings/Remarks: Patient kneeling on floor, actively having a BM. No acute distress Constitutional: Yes: No Distress, Calm Eyes: Yes: Conjunctiva Clear, EOM Intact HENT: Yes: Atraumatic, Normocephalic Neck: Yes: WNL Cardiovascular: Yes: Regular Rate and Rhythm Respiratory: Yes: Regular, CTA Bilaterally Gastrointestinal: Yes: Normal Bowel Sounds Extremities: Yes: Erythema. No: Calf Tenderness Edema: No Peripheral Pulses: Left Doralis Pedis: 0, Right Dorsalis Pedis: 0 Labs: CBC, BMP 02/19/17 06:00 02/19/17 06:00 Hospitalist Encounter Assessment: 77 year old male with HTN, new onset paroxysmal a fib, with L4-5 spondylolisthesis with stenosis and mechanical LBP and L L4-5 radiculopathy, and MSSA + bacteremia with bilateral leg weakness, fell on knees after attempting to got he the bathroom. THer was not any head trauma or bodily injury. Upon examination patient was at mental baseline since he has been in hospital, ( not oriented to place), no head trauma or other bodily injury. There were not any skin lacerations or tenderness to palpation extremity exam. #s/p fall: -CT/other imaging not indicated -initiate fall precaution/ bed alarm -secondary fall protocol -restrain mittens ordered due to patient pulling at lines/catheters -vital signs wnl; glucose normal Outcome: 77 year old male with PMHx HTN, paroxysmal afib, admitted Visit type - Emergency Visit Emergency Visit: Yes ED Registration Date: 02/10/17 Care time: The patient presented to the Emergency Department on the above date and was hospitalized for further evaluation of their emergent condition. - New Patient This patient is new to me today: Yes Date on this admission: 02/19/17 - Critical Care Critical Care patient: No
[2017-02-19] MEDS: LIDOCAINE PATCH REMOVAL MC SCH (22:42)
[2017-02-19] MEDS: ALPRAZolam 0.25 MG TABLET PO PRN (23:05)
[2017-02-19] MEDS: MONTELUKAST NA 10 MG TABLET PO SCH (23:05)
[2017-02-20] MEDS ORDERED: PT OWN MED DRAWER 7, Y5N ONE ×3 (02:06→17:09)
[2017-02-20] MEDS: CEFAZOLIN 2 GM/D5W 50 ML IVPB SCH ×3 (02:08→17:47)
[2017-02-20] MEDS: HEPARIN - 25,000 UNIT in SODIUM CHLORIDE 495 ML IV SCH ×3 (05:00→17:48)
[2017-02-20] MEDS: NYSTATIN 100,000 UNIT/GM TOPICAL CREAM 15 GM TUBE TP SCH ×3 (06:12→21:08)
[2017-02-20] MEDS: GABAPENTIN 100 MG CAPSULE (FP) PO SCH ×3 (06:12→21:08)
[2017-02-20] MEDS: ALBUTEROL SO4 2.5/IPRATROPIUM 0.5 INH SOL 3 ML VIAL.NEB. NEB SCH ×3 (06:24→21:22)
[2017-02-20 08:10] LABS: ALBUMIN 1.7 g/dl (3.4-5.0); ANION GAP 6 (8-16); CALCIUM 7.7 mg/dL (8.5-10.1); CO2 30 mmol/L (21-32); COCKROFT - GAULT 98.78; CREATININE 0.8 mg/dL (0.7-1.3); GLUCOSE,RANDOM 85 mg/dL (74-106); MAGNESIUM 1.9 mg/dL (1.8-2.4); SGOT/AST 26 U/L (15-37); SGPT/ALT 9 U/L (12-78)
[2017-02-20 08:12] LABS: ALK PHOS 79 U/L (45-117); BILIRUBIN,TOTAL 0.7 mg/dL (0.2-1.0); TOT PROT 6.2 g/dl (6.4-8.2)
[2017-02-20 08:22] LABS: BASOPHIL 0.2 % (0-2.0); EOSINOPHIL 0.8 % (0-4.5); MCH 33.8 pg (25.7-33.7); MCHC 33.5 g/dl (32.0-35.9); MEAN CELL VOLUME 101.1 fl (80-96); NEUTROPHILS 86.2 % (42.8-82.8); PLATELET COUNT 269 K/MM3 (134-434); RDW 14.5 % (11.9-15.9); WHITE BLOOD COUNT 15.7 K/mm3 (4.0-10.0)
[2017-02-20] MEDS: DOCUSATE SODIUM 100 MG CAPSULE (FP) PO SCH ×2 (09:37→21:07)
[2017-02-20] MEDS: POTASSIUM CHLORIDE TABS 20 MEQ TABLET.ER (FP) PO SCH (09:37)
[2017-02-20] MEDS: LIDOCAINE 5% TOPICAL PATCH TP SCH (09:38)
[2017-02-20] MEDS: METOPROLOL TARTRATE 50 MG TABLET (FP) PO SCH ×2 (09:38→21:07)
[2017-02-20] MEDS: POLYETHYLENE GLYCOL 3350 119 GM BTL PO SCH ×2 (09:38→21:07)
[2017-02-20] MEDS: valACYclovir HCL 500 MG TABLET (FP) PO SCH ×2 (09:39→21:08)
--- NOTE | 2017-02-20 10:05 | PN ---
Progress Note, Physician Chief Complaint: Events noted. More awake Episode of confusion last night. Resident note reviewed History of Present Illness: Patient was seen and examined. Awake. Chart was reviewed Spoke with his by bedside regarding his intermittent confusion MRI report reviewed - Current Medication List Current Medications: Active Medications Acetaminophen (Tylenol -) 650 mg PO Q4H PRN PRN Reason: FEVER OR PAIN Last Admin: 02/18/17 09:17 Dose: 650 mg Albuterol Sulfate (Ventolin 0.083% Nebulizer Soln -) 1 amp NEB Q4H PRN PRN Reason: SHORT OF BREATH/WHEEZING Albuterol/Ipratropium (Duoneb -) 1 amp NEB TIDR DOMITILA Last Admin: 02/20/17 06:24 Dose: 1 amp Alprazolam (Xanax -) 0.25 mg PO Q6H PRN Last Admin: 02/19/17 23:05 Dose: 0.25 mg Diltiazem HCl (Cardizem Injection -) 10 mg IVPUSH Q4H PRN PRN Reason: TACHYCARDIA Last Admin: 02/13/17 12:13 Dose: 10 mg Diltiazem HCl (Cardizem Cd -) 180 mg PO DAILY [facility] Last Admin: 02/20/17 09:37 Dose: 180 mg Docusate Sodium (Colace -) 100 mg PO BID [facility] Last Admin: 02/20/17 09:37 Dose: Not Given Gabapentin (Neurontin -) 100 mg PO TID [facility] Last Admin: 02/20/17 06:12 Dose: Not Given Haloperidol (Haldol Injection (Fast Acting) -) 2 mg IM Q4H PRN PRN Reason: AGITATION Heparin Sodium (Porcine) (Heparin -) 1,000 unit IVPUSH PRN PRN PRN Reason: Heparin Last Admin: 02/17/17 20:13 Dose: 1,000 unit Heparin Sodium (Porcine) (Heparin -) 5,000 unit IVPUSH PRN PRN PRN Reason: Heparin Last Admin: 02/14/17 11:09 Dose: 5,000 unit Hydromorphone HCl (Dilaudid Injection -) 1 mg IVPB Q4H PRN PRN Reason: PAIN Last Admin: 02/17/17 22:22 Dose: 1 mg Heparin Sodium (Porcine) 25, (000 unit/ Sodium Chloride) 500 mls @ 20 mls/hr IV TITR [facility]; 1,000 UNIT/HR PRN Reason: Protocol Last Admin: 02/20/17 05:00 Dose: 41 mls/hr Cefazolin Sodium/Dextrose (Ancef 2 Gm Premixed Ivpb -) 50 mls @ 100 mls/hr IVPB Q8H-IV [facility] Last Admin: 02/20/17 09:35 Dose: 100 mls/hr Potassium Chloride 20 meq/ (Dextrose) 1,010 mls @ 42 mls/hr IVPB Q24H [facility] Last Admin: 02/19/17 15:25 Dose: Not Given Lidocaine (Lidoderm Patch -) 1 patch TP DAILY [facility] Last Admin: 02/20/17 09:38 Dose: 1 patch Metoprolol Tartrate (Lopressor Injection -) 5 mg IVPUSH Q4H PRN Last Admin: 02/16/17 05:48 Dose: 5 mg Metoprolol Tartrate (Lopressor -) 50 mg PO BID [facility] Last Admin: 02/20/17 09:38 Dose: 50 mg Miscellaneous (Lidoderm Patch Removal) 1 each MC DAILY@2200 [facility] Last Admin: 02/19/17 22:42 Dose: 1 each Montelukast Sodium (Singulair -) 10 mg PO HS [facility] Last Admin: 02/19/17 23:05 Dose: 10 mg Non-Formulary Medication (Fluticasone/Salmeterol [Advair Hfa 230-21 Mcg Inhaler] ) 1 inh PO BID [facility] Nystatin (Mycostatin Cream -) 1 applic TP BID [facility] Last Admin: 02/20/17 09:38 Dose: 1 applic Ondansetron HCl (Zofran Injection) 4 mg IVPB Q6H PRN PRN Reason: NAUSEA Oxycodone HCl (Roxicodone -) 5 mg PO Q4H PRN PRN Reason: PAIN Last Admin: 02/18/17 09:09 Dose: 5 mg Polyethylene Glycol (Miralax (For Daily Use) -) 17 gm PO BID [facility] Last Admin: 02/20/17 09:38 Dose: Not Given Potassium Chloride (K-Dur -) 20 meq PO BID [facility] Last Admin: 02/20/17 09:37 Dose: 20 meq Valacyclovir HCl (Valtrex -) 1,000 mg PO BID [facility] Last Admin: 02/20/17 09:39 Dose: 1,000 mg - Objective Vital Signs: Vital Signs Temperature 97.4 F L 02/20/17 05:30 Pulse Rate 82 02/20/17 05:30 Respiratory Rate 20 02/20/17 05:30 Blood Pressure 148/84 02/20/17 05:30 O2 Sat by Pulse Oximetry (%) 99 02/19/17 21:00 Neck: Yes: Supple Cardiovascular: Yes: Regular Rate and Rhythm, S1, S2 Respiratory: Yes: Diminished Gastrointestinal: Yes: Normal Bowel Sounds, Soft. 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 Code(s): K68.12 - PSOAS MUSCLE ABSCESS (4) Lactic acidosis Code(s): E87.2 - ACIDOSIS (5) MSSA (methicillin susceptible Staphylococcus aureus) septicemia Code(s): A41.01 - SEPSIS DUE TO METHICILLIN SUSCEPTIBLE STAPHYLOCOCCUS AUREUS (6) SIRS (systemic inflammatory response syndrome) Code(s): R65.10 - SIRS OF NON-INFECTIOUS ORIGIN W/O ACUTE ORGAN DYSFUNCTION (7) Sepsis Code(s): A41.9 - SEPSIS, UNSPECIFIED ORGANISM (8) Thoracic aortic aneurysm without rupture Code(s): I71.2 - THORACIC AORTIC ANEURYSM, WITHOUT RUPTURE (9) Thrombocytopenia Code(s): D69.6 - THROMBOCYTOPENIA, UNSPECIFIED (10) Toxic metabolic encephalopathy Code(s): G92 - TOXIC ENCEPHALOPATHY Assessment/Plan 1. Persistent MSSA bacteremia - septic discitis, osteomyelitis and eipural abscess lumbar spine 2. Paroxysmal atrial fibrillation [id number] of 2 with possible left foot thromboembolism vs septic emboli 3. ALBERTO and lactic acidosis 4. 4.1 cm TAA 5. Thrombocytopenia due to sepsis 6. Acute on chronic diastolic failure improved 7. Toxic metabolic encephalopathy 8. PFO PLAN: 1. Cardizem CD and Lopressor as hemodynamics tolerate for rate-control. Continue Heparin drip with caution given thrombocytopenia. Eventually oral anticoagulation is to be considered. Consider NOAC such as Eliquis if tolerated. Fall precaution is a concern and should be closely assessed 2. Monitor BMP. Continue antibiotic coverage 3. MRI report was reviewed. ID input to follow 4. Follow neuro status Further plans are to follow Jaquan Calvert MD
--- NOTE | 2017-02-20 10:08 | PN ---
Progress Note (short form) - Note Progress Note: NEUROSURGERY Back pain better overall More awake than previously PE: Tmax 97.8, VSS HEENT- NC/AT; Neck- supple; Cor- RR; Lungs- no wheezes; Abd- obese, benign; Ext - No sign of DVT except mild chronic B edema CN- intact; Motor- 4/5 B UE/LE except L IP/Quad/EHL/TA/gastroc/inv/ev 3 pain/ sleepines limited; Sensation- diminished LT L L4-5 WBC 15.1 MSSA on blood culture + 1/2 from 02/14; 02-16 specimen + 1/2 MSSA; 6-3 cultures pending MRI- L4-5 discitis/osteomyelitis; anterior epidural enhancement w/ mild anterior thecal sac impingement; L4-5 spondylolisthesis with underlying stenosis ; no distinctively drainable fluid collection L4-5 spondylolisthesis with stenosis and mechanical LBP and L L4-5 radiculopathy L4-5 discitis/osteomyelitis and not easily drainable anterior epidural soft tissue infection Clinically somewhat improved (radiographic findings lag behind clinical progress ) On Ancef per ID Pros and cons of tx approaches d/w pt and does not wish for him to have any surgery anyway (which will necessarily be extremely high risk)
--- NOTE | 2017-02-20 10:45 | PN ---
Progress Note, Physician History of Present Illness: Renal f/u Still has some back pain Discitis confirmed by the MRI Has some nausea but no vomiting or diarrhea Serum Na now 135 on D5W - Current Medication List Current Medications: Active Medications Acetaminophen (Tylenol -) 650 mg PO Q4H PRN PRN Reason: FEVER OR PAIN Last Admin: 02/18/17 09:17 Dose: 650 mg Albuterol Sulfate (Ventolin 0.083% Nebulizer Soln -) 1 amp NEB Q4H PRN PRN Reason: SHORT OF BREATH/WHEEZING Albuterol/Ipratropium (Duoneb -) 1 amp NEB TIDR [facility] Last Admin: 02/20/17 06:24 Dose: 1 amp Alprazolam (Xanax -) 0.25 mg PO Q6H PRN Last Admin: 02/19/17 23:05 Dose: 0.25 mg Diltiazem HCl (Cardizem Injection -) 10 mg IVPUSH Q4H PRN PRN Reason: TACHYCARDIA Last Admin: 02/13/17 12:13 Dose: 10 mg Diltiazem HCl (Cardizem Cd -) 180 mg PO DAILY [facility] Last Admin: 02/20/17 09:37 Dose: 180 mg Docusate Sodium (Colace -) 100 mg PO BID [facility] Last Admin: 02/20/17 09:37 Dose: Not Given Gabapentin (Neurontin -) 100 mg PO TID [facility] Last Admin: 02/20/17 06:12 Dose: Not Given Haloperidol (Haldol Injection (Fast Acting) -) 2 mg IM Q4H PRN PRN Reason: AGITATION Heparin Sodium (Porcine) (Heparin -) 1,000 unit IVPUSH PRN PRN PRN Reason: Heparin Last Admin: 02/17/17 20:13 Dose: 1,000 unit Heparin Sodium (Porcine) (Heparin -) 5,000 unit IVPUSH PRN PRN PRN Reason: Heparin Last Admin: 02/14/17 11:09 Dose: 5,000 unit Hydromorphone HCl (Dilaudid Injection -) 1 mg IVPB Q4H PRN PRN Reason: PAIN Last Admin: 02/17/17 22:22 Dose: 1 mg Heparin Sodium (Porcine) 25, (000 unit/ Sodium Chloride) 500 mls @ 20 mls/hr IV TITR [facility]; 1,000 UNIT/HR PRN Reason: Protocol Last Admin: 02/20/17 10:32 Dose: 44 mls/hr Cefazolin Sodium/Dextrose (Ancef 2 Gm Premixed Ivpb -) 50 mls @ 100 mls/hr IVPB Q8H-IV [facility] Last Admin: 02/20/17 09:35 Dose: 100 mls/hr Potassium Chloride 20 meq/ (Dextrose) 1,010 mls @ 42 mls/hr IVPB Q24H [facility] Last Admin: 02/19/17 15:25 Dose: Not Given Lidocaine (Lidoderm Patch -) 1 patch TP DAILY [facility] Last Admin: 02/20/17 09:38 Dose: 1 patch Metoprolol Tartrate (Lopressor Injection -) 5 mg IVPUSH Q4H PRN Last Admin: 02/16/17 05:48 Dose: 5 mg Metoprolol Tartrate (Lopressor -) 50 mg PO BID [facility] Last Admin: 02/20/17 09:38 Dose: 50 mg Miscellaneous (Lidoderm Patch Removal) 1 each MC DAILY@2200 [facility] Last Admin: 02/19/17 22:42 Dose: 1 each Montelukast Sodium (Singulair -) 10 mg PO HS [facility] Last Admin: 02/19/17 23:05 Dose: 10 mg Non-Formulary Medication (Fluticasone/Salmeterol [Advair Hfa 230-21 Mcg Inhaler] ) 1 inh PO BID [facility] Nystatin (Mycostatin Cream -) 1 applic TP BID [facility] Last Admin: 02/20/17 09:38 Dose: 1 applic Ondansetron HCl (Zofran Injection) 4 mg IVPB Q6H PRN PRN Reason: NAUSEA Oxycodone HCl (Roxicodone -) 5 mg PO Q4H PRN PRN Reason: PAIN Last Admin: 02/18/17 09:09 Dose: 5 mg Polyethylene Glycol (Miralax (For Daily Use) -) 17 gm PO BID [facility] Last Admin: 02/20/17 09:38 Dose: Not Given Potassium Chloride (K-Dur -) 20 meq PO BID [facility] Last Admin: 02/20/17 09:37 Dose: 20 meq Valacyclovir HCl (Valtrex -) 1,000 mg PO BID [facility] Last Admin: 02/20/17 09:39 Dose: 1,000 mg - Objective Vital Signs: Vital Signs Temperature 97.4 F L 06/04/17 05:30 Pulse Rate 82 02/20/17 05:30 Respiratory Rate 20 02/20/17 05:30 Blood Pressure 148/84 02/20/17 05:30 O2 Sat by Pulse Oximetry (%) 99 02/19/17 21:00 Constitutional: Yes: No Distress Cardiovascular: Yes: S1, S2 Respiratory: Yes: CTA Bilaterally Gastrointestinal: Yes: Soft, Abdomen, Obese. No: Tenderness, Rebound Edema: LLE: 2+, RLE: Trace Labs: CBC, BMP 02/20/17 06:20 02/20/17 06:20 INR, PTT INR 1.28 (0.82-1.09) H 02/15/17 06:00 Fibrinogen 668.0 mg/dL (238-498) H 02/15/17 06:00 Laboratory Tests 02/20/17 06:20 PTT (Actin FS) 37.5 H D - ....Imaging MRI: Report Reviewed Assessment/Plan Impression 1. ALBERTO resolved as has the hypernatremia- pt now with borderline hyponatremia 2. Back pain R/O Discitis 3. Hypotension 4. Hx of HTN 5. Asthma 6. PAF Plan - D/C the IVF - Abx as per ID - Anticoagulation as per protocol - Rpt labs in am as ordered Discussed with PMD Dr Nunez
--- NOTE | 2017-02-20 10:55 | PN ---
Progress Note (short form) - Note Progress Note: Patient seen and examined. Chart reviewed at length. Events reviewed. Currently lying supine in bed, nasal O2 in place. Remains lethargic with some periods of clarity. Mental status improved overall based on reports of , nurses and physicians who have seen him more frequently. Denies new chest discomfort or palpitations. Labs, telemetry and staffing consultant notes reviewed. MRI report reviewed and discussed with Dr Mirza Evidence of septic discitis with osteomyelitis and anterior epidural abscess, described by Dr Mirza as more of a" phlegmon" at L3 - L5 and not likely able to be successfully or effectively incised and drained Patient sustained a fall and was found kneeling at the side of the bed Assessed by Hospital MD No obvious injury Fall precautions reviewed Selected Entries 02/20/17 05:30 Temperature 97.4 F L Pulse Rate 82 Respiratory 20 Rate Blood Pressure 148/84 Laboratory Tests 02/20/17 02/20/17 02/20/17 06:20 06:20 06:20 WBC 15.7 H Hgb 10.5 L Hct 31.4 L Plt Count 269 PTT (Actin FS) 37.5 H D Sodium 135 L Potassium 4.6 Chloride 99 Carbon Dioxide 30 BUN 17 Creatinine 0.8 Random Glucose 85 Calcium 7.7 L Magnesium 1.9 Total Bilirubin 0.7 D AST 26 ALT 9 L D Alkaline Phosphatase 79 Total Protein 6.2 L Albumin 1.7 L Chest Clear No wheezing noted No rhonchi Some cough noted Cor Irregular with occasional ectopic Telemetry Sinus rhythm with unifocal PVCs Occasional couplet Abd Obese No mass or tenderness BS positive Ext No edema No phlebitis Open area right elbow and right lower back/upper buttock area Fullness distal to left elbow extensor surface Neuro No new focal deficit Periods of confusion and lethargy Fragoso catheter in place Skin Open area right elbow area Fullness lest elbow area Open areas right low back aobve waistline Assessment and Plan MSSA septicemia On Rx Will require treatment c/w SBE/Endovascular focus Back Pain Possible discitis or psoas muscle abscess Reassessed with MRI as discussed above No obvious abscess Discitis with osteomyelitis L3-5 felt not to be amenable to I+D Leukocytosis Noted Recheck Fall Observe Anemia 10.9/32.5>>10.5/31.4 Likely multifactorial with contribution of acute/ chronic disease Hypoalbuminemia Severe 1.8>>1.7 Multifactorial related to acute/chronic disease and nutritional factors On Heparin PTT noted Now that he will not be a candidate for I+D, we can transition to warfarin or a NOAC for embolic and DVT precautions Dr Calvert notified Osteoarthritis H/O L4-5 radiculitis Chronic See recent MRI H/O Left foot pain and cellulitis Stable Doppler study at bedside revealed adequate pedal pulses on left foot Open areas on skin Bacitracin Empiric treatment previously started for HVZ ( renal dosing) Thrombocytopenia 241K>>269K Resolved Likely related to septicemia Monitor while on heparin Hypotension H/O Hypertension Monitor fluid status Renal insufficiency 20/0.9 Monitor Diastolic CHF Stable Toxic/metabolic Encephalopathy Still demonstrating periods of confusion but improved according to daily notes AAA and TAA Monitor carefully as patient is on A/C H/O Afib with RVR Currently in NSR with PVCs On heparin To transition to oral Rx Hypernatremia Stable 137>>135 Now trending to Hyponatremia on D5W (hypotonic ) replacement D/C iv Discussed with Dr Nunez COPD As described in previous notes Stable On O2 PFO Seen on FABIOLA Discussed with Dr Calvert No new Rx required H/O Hernia repair Continue current Rx as outlined Case discussed at length with patient's .
[2017-02-20] MEDS: BACITRACIN 30 GM TUBE TOPICAL OINTMENT TP SCH ×2 (12:18→21:07)
[2017-02-20] MEDS: ACETAMINOPHEN 325 MG TABLET (FP) PO PRN ×2 (13:40→20:51)
[2017-02-20] MEDS: ALPRAZolam 0.25 MG TABLET PO PRN (20:51)
[2017-02-20] MEDS: LIDOCAINE PATCH REMOVAL MC SCH (21:07)
[2017-02-20] MEDS: MONTELUKAST NA 10 MG TABLET PO SCH (21:08)
[2017-02-21] MEDS ORDERED: PT OWN MED DRAWER 7, Y5N ONE ×2 (00:38→08:36)
[2017-02-21] MEDS: CEFAZOLIN 2 GM/D5W 50 ML IVPB SCH ×3 (01:20→18:30)
[2017-02-21] MEDS: GABAPENTIN 100 MG CAPSULE (FP) PO SCH ×3 (05:11→21:08)
[2017-02-21] MEDS: HEPARIN - 25,000 UNIT in SODIUM CHLORIDE 495 ML IV SCH ×2 (06:01→23:43)
[2017-02-21] MEDS: ALBUTEROL SO4 2.5/IPRATROPIUM 0.5 INH SOL 3 ML VIAL.NEB. NEB SCH ×3 (06:20→22:10)
[2017-02-21 07:15] LABS: BASOPHIL 0.2 % (0-2.0); EOSINOPHIL 0.4 % (0-4.5); MCH 33.9 pg (25.7-33.7); MCHC 33.5 g/dl (32.0-35.9); MEAN CELL VOLUME 101.2 fl (80-96); MEAN PLT VOLUME 10.1 fl (7.5-11.1); NEUTROPHILS 87.4 % (42.8-82.8); PLATELET COUNT 321 K/MM3 (134-434); RDW 14.1 % (11.9-15.9); WHITE BLOOD COUNT 16.4 K/mm3 (4.0-10.0)
[2017-02-21 07:44] LABS: ALBUMIN 1.7 g/dl (3.4-5.0); ALK PHOS 84 U/L (45-117); ANION GAP 10 (8-16); BILIRUBIN,TOTAL 0.8 mg/dL (0.2-1.0); CO2 28 mmol/L (21-32); CREATININE 0.7 mg/dL (0.7-1.3); GLUCOSE,RANDOM 74 mg/dL (74-106); SGOT/AST 24 U/L (15-37); SGPT/ALT 9 U/L (12-78); TOT PROT 6.6 g/dl (6.4-8.2)
--- NOTE | 2017-02-21 07:58 | PN ---
Progress Note (short form) - Note Progress Note: NEUROSURGERY Back pain better More awake PE: Tmax 99.7, VSS HEENT- NC/AT; Neck- supple; Cor- RR; Lungs- no wheezes; Abd- obese, benign; Ext - No sign of DVT except mild chronic B edema CN- intact; Motor- 4+/5 B UE/LE except L IP/Quad/EHL/TA/gastroc/inv/ev 4- pain; Sensation- diminished LT L L4-5 WBC 16.4 MSSA on blood culture + 1/2 from 02/14; 02-16 specimen + 1/2 MSSA; 6-3 cultures negative to date L4-5 spondylolisthesis with stenosis and mechanical LBP and L L4-5 radiculopathy L4-5 discitis/osteomyelitis with anterior epidural soft tissue infection Clinically somewhat improved (radiographic findings tend to lag behind clinical progress) On Ancef per ID D/w Dr Gentile
[2017-02-21] MEDS: HEPARIN NA (PORCINE) 5,000 UNITS/ML 1ML VIAL IVPUSH PRN ×3 (08:45→23:43)
[2017-02-21] MEDS: valACYclovir HCL 500 MG TABLET (FP) PO SCH ×2 (09:48→21:08)
[2017-02-21] MEDS: ACETAMINOPHEN 325 MG TABLET (FP) PO PRN ×2 (09:49→21:08)
[2017-02-21] MEDS: METOPROLOL TARTRATE 50 MG TABLET (FP) PO SCH ×2 (09:49→21:08)
[2017-02-21] MEDS: DOCUSATE SODIUM 100 MG CAPSULE (FP) PO SCH ×2 (09:49→21:06)
[2017-02-21] MEDS: NYSTATIN 100,000 UNIT/GM TOPICAL CREAM 15 GM TUBE TP SCH ×2 (09:51→21:08)
[2017-02-21] MEDS: LIDOCAINE 5% TOPICAL PATCH TP SCH (09:51)
[2017-02-21] MEDS: BACITRACIN 30 GM TUBE TOPICAL OINTMENT TP SCH ×2 (09:52→21:07)
--- NOTE | 2017-02-21 10:14 | PN ---
Progress Note (short form) - Note Progress Note: Patient had repeat MRI spine and it showed Osteomyelitis and possible psoas abscess. Dr. Mirza has seen patient; I still question when there is a need for IR or Neurosurgery drainage. Blood C/S from 02/19/17 are also +. Patient more alert but periods of confusion and he also slipped to floor on weekend but no obvious injury. Continues in pain especially in back and foot. On Exam: Vital Signs Temp 101.6 F H 02/21/17 09:46 Pulse 102 H 02/21/17 09:46 Resp 22 02/21/17 09:46 BP 172/85 02/21/17 09:46 Pulse Ox 98 02/20/17 21:00 Intake & Output 02/20/17 02/20/17 02/21/17 11:59 23:59 11:59 Intake Total 631 460 358 Output Total 600 600 600 Balance 31 -140 -242 Intake: IV 581 210 308 Heparin - 25,000 Unit In 287 308 Normal Saline - 495 ml @ 1,000 UNIT/HR 20 mls/hr IV TITR [facility] Rx#: [id number] D5 with 20meq KCL @42 294 210 IVPB 50 50 50 Oral 200 Output: Urine 600 600 600 Fragoso 600 600 600 Other: Voiding Method Indwelling Catheter Indwelling Catheter # Unmeasured Voids Void 2 Bowel Movement No No # Bowel Movements 0 Alert now Cor regular Chest: decreased antibiotics Ext: Large corn left foot which is also bothering him Erythema left foot with tenderness and swelling. IMP: MSSA Sepsis Acute Osteomyelitis of Spine Psoas Abscess VS inflammation A. Fib to NSR Mild hypokalemia cute Pain on rx. PLan: Have IR MD review MRI F/U lab F/U ID MD Foot Doctor to evaluate patient. Pepeat Blood C/S. Problem List - Problems (1) Atrial fibrillation with rapid ventricular response Code(s): I48.91 - UNSPECIFIED ATRIAL FIBRILLATION (2) Back pain Code(s): M54.9 - DORSALGIA, UNSPECIFIED Qualifiers: Back pain location: low back pain Chronicity: acute Back pain laterality: bilateral Sciatica presence: without sciatica Qualified Code(s): M54.5 - Low back pain (3) Sepsis Code(s): A41.9 - SEPSIS, UNSPECIFIED ORGANISM (4) ALBERTO (acute kidney injury) Code(s): N17.9 - ACUTE KIDNEY FAILURE, UNSPECIFIED (5) Hypotension Code(s): I95.9 - HYPOTENSION, UNSPECIFIED Qualifiers: Hypotension type: unspecified hypotension type Qualified Code(s): I95.9 - Hypotension, unspecified (6) Lactic acidosis Code(s): E87.2 - ACIDOSIS (7) Sepsis associated hypotension Code(s): A41.9 - SEPSIS, UNSPECIFIED ORGANISM (8) AAA (abdominal aortic aneurysm) without rupture Code(s): I71.4 - ABDOMINAL AORTIC ANEURYSM, WITHOUT RUPTURE (9) Pain Code(s): R52 - PAIN, UNSPECIFIED (10) Foot pain, left Code(s): M79.672 - PAIN IN LEFT FOOT
[2017-02-21] MEDS: POLYETHYLENE GLYCOL 3350 119 GM BTL PO SCH ×2 (10:23→21:06)
--- NOTE | 2017-02-21 10:38 | PN ---
Progress Note, Physician Chief Complaint: Events noted. More awake and alert History of Present Illness: Patient was seen and examined. Awake. Chart was reviewedn Neurosurgery and ID input noted Febrile Blood cultures sent - Current Medication List Current Medications: Active Medications Acetaminophen (Tylenol -) 650 mg PO Q4H PRN PRN Reason: FEVER OR PAIN Last Admin: 02/21/17 09:49 Dose: 650 mg Acetaminophen (Tylenol -) 650 mg PO Q4H PRN PRN Reason: PAIN Albuterol Sulfate (Ventolin 0.083% Nebulizer Soln -) 1 amp NEB Q4H PRN PRN Reason: SHORT OF BREATH/WHEEZING Albuterol/Ipratropium (Duoneb -) 1 amp NEB TIDR [facility] Last Admin: 02/21/17 06:20 Dose: 1 amp Alprazolam (Xanax -) 0.25 mg PO Q6H PRN Last Admin: 02/20/17 20:51 Dose: 0.25 mg Bacitracin (Bacitracin -) 1 applic TP BID [facility] Last Admin: 02/21/17 09:52 Dose: 1 applic Diltiazem HCl (Cardizem Injection -) 10 mg IVPUSH Q4H PRN PRN Reason: TACHYCARDIA Last Admin: 02/13/17 12:13 Dose: 10 mg Diltiazem HCl (Cardizem Cd -) 180 mg PO DAILY [facility] Last Admin: 02/21/17 09:49 Dose: 180 mg Docusate Sodium (Colace -) 100 mg PO BID [facility] Last Admin: 02/21/17 09:49 Dose: 100 mg Gabapentin (Neurontin -) 100 mg PO TID [facility] Last Admin: 02/21/17 05:11 Dose: 100 mg Haloperidol (Haldol Injection (Fast Acting) -) 2 mg IM Q4H PRN PRN Reason: AGITATION Heparin Sodium (Porcine) (Heparin -) 1,000 unit IVPUSH PRN PRN PRN Reason: Heparin Last Admin: 02/17/17 20:13 Dose: 1,000 unit Heparin Sodium (Porcine) (Heparin -) 5,000 unit IVPUSH PRN PRN PRN Reason: Heparin Last Admin: 02/21/17 08:45 Dose: 5,000 unit Hydromorphone HCl (Dilaudid Injection -) 1 mg IVPB Q4H PRN PRN Reason: PAIN Last Admin: 02/17/17 22:22 Dose: 1 mg Heparin Sodium (Porcine) 25, (000 unit/ Sodium Chloride) 500 mls @ 20 mls/hr IV TITR DOMITILA; 1,000 UNIT/HR PRN Reason: Protocol Last Titration: 02/21/17 08:45 Dose: 2,350 unit/hr Cefazolin Sodium/Dextrose (Ancef 2 Gm Premixed Ivpb -) 50 mls @ 100 mls/hr IVPB Q8H-IV [facility] Last Admin: 02/21/17 01:20 Dose: 100 mls/hr Lidocaine (Lidoderm Patch -) 1 patch TP DAILY [facility] Last Admin: 02/21/17 09:51 Dose: 1 patch Metoprolol Tartrate (Lopressor Injection -) 5 mg IVPUSH Q4H PRN Last Admin: 02/16/17 05:48 Dose: 5 mg Metoprolol Tartrate (Lopressor -) 50 mg PO BID [facility] Last Admin: 02/21/17 09:49 Dose: 50 mg Miscellaneous (Lidoderm Patch Removal) 1 each MC DAILY@2200 [facility] Last Admin: 02/20/17 21:07 Dose: 1 each Montelukast Sodium (Singulair -) 10 mg PO HS [facility] Last Admin: 02/20/17 21:08 Dose: 10 mg Non-Formulary Medication (Fluticasone/Salmeterol [Advair Hfa 230-21 Mcg Inhaler] ) 1 inh PO BID [facility] Nystatin (Mycostatin Cream -) 1 applic TP BID [facility] Last Admin: 02/21/17 09:51 Dose: 1 applic Ondansetron HCl (Zofran Injection) 4 mg IVPB Q6H PRN PRN Reason: NAUSEA Oxycodone HCl (Roxicodone -) 5 mg PO Q4H PRN PRN Reason: PAIN Last Admin: 02/18/17 09:09 Dose: 5 mg Polyethylene Glycol (Miralax (For Daily Use) -) 17 gm PO BID [facility] Last Admin: 02/21/17 10:23 Dose: Not Given Valacyclovir HCl (Valtrex -) 1,000 mg PO BID [facility] Last Admin: 02/21/17 09:48 Dose: 1,000 mg - Objective Vital Signs: Vital Signs Temperature 101.6 F H 02/21/17 09:46 Pulse Rate 102 H 02/21/17 09:46 Respiratory Rate 22 02/21/17 09:46 Blood Pressure 172/85 02/21/17 09:46 O2 Sat by Pulse Oximetry (%) 98 02/20/17 21:00 Neck: Yes: Supple Cardiovascular: Yes: Regular Rate and Rhythm, S1, S2 Respiratory: Yes: Diminished Gastrointestinal: Yes: Normal Bowel Sounds, Soft. 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 Code(s): K68.12 - PSOAS MUSCLE ABSCESS (4) Lactic acidosis Code(s): E87.2 - ACIDOSIS (5) MSSA (methicillin susceptible Staphylococcus aureus) septicemia Code(s): A41.01 - SEPSIS DUE TO METHICILLIN SUSCEPTIBLE STAPHYLOCOCCUS AUREUS (6) SIRS (systemic inflammatory response syndrome) Code(s): R65.10 - SIRS OF NON-INFECTIOUS ORIGIN W/O ACUTE ORGAN DYSFUNCTION (7) Sepsis Code(s): A41.9 - SEPSIS, UNSPECIFIED ORGANISM (8) Thoracic aortic aneurysm without rupture Code(s): I71.2 - THORACIC AORTIC ANEURYSM, WITHOUT RUPTURE (9) Thrombocytopenia Code(s): D69.6 - THROMBOCYTOPENIA, UNSPECIFIED (10) Toxic metabolic encephalopathy Code(s): G92 - TOXIC ENCEPHALOPATHY Assessment/Plan 1. Persistent MSSA bacteremia - septic discitis, osteomyelitis and eipural abscess lumbar spine 2. Paroxysmal atrial fibrillation [id number] of 2 with possible left foot thromboembolism vs septic emboli 3. ALBERTO and lactic acidosis 4. 4.1 cm TAA 5. Thrombocytopenia due to sepsis 6. Acute on chronic diastolic failure improved 7. Toxic metabolic encephalopathy 8. PFO PLAN: 1. Cardizem CD and Lopressor as hemodynamics tolerate for rate-control. Continue Heparin drip with caution given thrombocytopenia. Eventually oral anticoagulation is to be considered. Consider NOAC such as Eliquis if tolerated. Fall precaution may limit its use. Decision is to be followed 2. Monitor BMP. Continue antibiotic coverage. Blood culture pending 3. ID input noted 4. Follow neuro status Further plans are to follow Sang H. Nehal MD
--- NOTE | 2017-02-21 10:40 | PN ---
Progress Note, Physician Chief Complaint: ID Subjective improvement pain and mental status. However now febrile 101 and his last set of blood cultures still positive ! Cefazolin - Current Medication List Current Medications: Active Medications Acetaminophen (Tylenol -) 650 mg PO Q4H PRN PRN Reason: FEVER OR PAIN Last Admin: 02/21/17 09:49 Dose: 650 mg Acetaminophen (Tylenol -) 650 mg PO Q4H PRN PRN Reason: PAIN Albuterol Sulfate (Ventolin 0.083% Nebulizer Soln -) 1 amp NEB Q4H PRN PRN Reason: SHORT OF BREATH/WHEEZING Albuterol/Ipratropium (Duoneb -) 1 amp NEB TIDR [facility] Last Admin: 02/21/17 06:20 Dose: 1 amp Alprazolam (Xanax -) 0.25 mg PO Q6H PRN Last Admin: 02/20/17 20:51 Dose: 0.25 mg Bacitracin (Bacitracin -) 1 applic TP BID [facility] Last Admin: 02/21/17 09:52 Dose: 1 applic Diltiazem HCl (Cardizem Injection -) 10 mg IVPUSH Q4H PRN PRN Reason: TACHYCARDIA Last Admin: 02/13/17 12:13 Dose: 10 mg Diltiazem HCl (Cardizem Cd -) 180 mg PO DAILY [facility] Last Admin: 02/21/17 09:49 Dose: 180 mg Docusate Sodium (Colace -) 100 mg PO BID [facility] Last Admin: 02/21/17 09:49 Dose: 100 mg Gabapentin (Neurontin -) 100 mg PO TID [facility] Last Admin: 02/21/17 05:11 Dose: 100 mg Haloperidol (Haldol Injection (Fast Acting) -) 2 mg IM Q4H PRN PRN Reason: AGITATION Heparin Sodium (Porcine) (Heparin -) 1,000 unit IVPUSH PRN PRN PRN Reason: Heparin Last Admin: 02/17/17 20:13 Dose: 1,000 unit Heparin Sodium (Porcine) (Heparin -) 5,000 unit IVPUSH PRN PRN PRN Reason: Heparin Last Admin: 02/21/17 08:45 Dose: 5,000 unit Hydromorphone HCl (Dilaudid Injection -) 1 mg IVPB Q4H PRN PRN Reason: PAIN Last Admin: 02/17/17 22:22 Dose: 1 mg Heparin Sodium (Porcine) 25, (000 unit/ Sodium Chloride) 500 mls @ 20 mls/hr IV TITR DOMITILA; 1,000 UNIT/HR PRN Reason: Protocol Last Titration: 02/21/17 08:45 Dose: 2,350 unit/hr Cefazolin Sodium/Dextrose (Ancef 2 Gm Premixed Ivpb -) 50 mls @ 100 mls/hr IVPB Q8H-IV [facility] Last Admin: 02/21/17 01:20 Dose: 100 mls/hr Lidocaine (Lidoderm Patch -) 1 patch TP DAILY [facility] Last Admin: 02/21/17 09:51 Dose: 1 patch Metoprolol Tartrate (Lopressor Injection -) 5 mg IVPUSH Q4H PRN Last Admin: 02/16/17 05:48 Dose: 5 mg Metoprolol Tartrate (Lopressor -) 50 mg PO BID [facility] Last Admin: 02/21/17 09:49 Dose: 50 mg Miscellaneous (Lidoderm Patch Removal) 1 each MC DAILY@2200 [facility] Last Admin: 02/20/17 21:07 Dose: 1 each Montelukast Sodium (Singulair -) 10 mg PO HS [facility] Last Admin: 02/20/17 21:08 Dose: 10 mg Non-Formulary Medication (Fluticasone/Salmeterol [Advair Hfa 230-21 Mcg Inhaler] ) 1 inh PO BID [facility] Nystatin (Mycostatin Cream -) 1 applic TP BID [facility] Last Admin: 02/21/17 09:51 Dose: 1 applic Ondansetron HCl (Zofran Injection) 4 mg IVPB Q6H PRN PRN Reason: NAUSEA Oxycodone HCl (Roxicodone -) 5 mg PO Q4H PRN PRN Reason: PAIN Last Admin: 02/18/17 09:09 Dose: 5 mg Polyethylene Glycol (Miralax (For Daily Use) -) 17 gm PO BID [facility] Last Admin: 02/21/17 10:23 Dose: Not Given Valacyclovir HCl (Valtrex -) 1,000 mg PO BID [facility] Last Admin: 02/21/17 09:48 Dose: 1,000 mg - Objective Vital Signs: Vital Signs Temperature 101.6 F H 02/21/17 09:46 Pulse Rate 102 H 02/21/17 09:46 Respiratory Rate 22 02/21/17 09:46 Blood Pressure 172/85 02/21/17 09:46 O2 Sat by Pulse Oximetry (%) 98 02/20/17 21:00 Constitutional: Yes: No Distress HENT: Yes: WNL, Atraumatic Neck: Yes: WNL, Supple Cardiovascular: Yes: Regular Rate and Rhythm, S1, S2. No: Murmur Respiratory: Yes: WNL, Regular, CTA Bilaterally Gastrointestinal: Yes: WNL, Normal Bowel Sounds, Soft. No: Tenderness, Tenderness, Epigastrium Extremities: Yes: Erythema, Other (Right foot and toe middle tender) Labs: CBC, BMP 02/21/17 05:38 02/21/17 05:38 INR, PTT INR 1.28 (0.82-1.09) H 02/15/17 06:00 Fibrinogen 668.0 mg/dL (238-498) H 02/15/17 06:00 Assessment/Plan Microbiology 02/16/17 13:15 Blood - Peripheral Venous Blood Culture - Final Staphylococcus Aureus 02/14/17 11:15 Blood - Peripheral Venous Blood Culture - Final Staphylococcus Aureus 02/12/17 10:58 Blood - Peripheral Venous Blood Culture - Final Staphylococcus Aureus 02/12/17 10:48 Blood - Peripheral Venous Blood Culture - Final Staphylococcus Aureus 02/10/17 20:30 Blood - Peripheral Venous Blood Culture - Final Staphylococcus Aureus 02/10/17 20:25 Blood - Peripheral Venous Blood Culture - Final Staphylococcus Aureus 02/19/17 06:00 Blood - Peripheral Venous Blood Culture - Preliminary Pending Organism 02/19/17 06:00 Blood - Peripheral Venous Blood Culture - Preliminary NO GROWTH OBTAINED AFTER 48 HOURS, INCUBATION TO CONTINUE FOR 3 DAYS. Laboratory Tests 02/21/17 02/21/17 05:38 05:38 WBC 16.4 H Hgb 10.7 L Hct 32.0 L Plt Count 321 BUN 15 Creatinine 0.7 Creat Clearance w eGFR > 60 Assessment MSSA bacteremia persistant Refractory bacteremia !! Plan Based on literature will add synergy from combination of Cefazolin and Ertepenem Repeat blood cultures tomorrow Krupa LOPEZ
--- NOTE | 2017-02-21 12:14 | PN ---
Progress Note, Physician History of Present Illness: pulmononary alert,-resp distress,remains febrile,bacteremic - Current Medication List Current Medications: Active Medications Acetaminophen (Tylenol -) 650 mg PO Q4H PRN PRN Reason: FEVER OR PAIN Last Admin: 02/21/17 09:49 Dose: 650 mg Acetaminophen (Tylenol -) 650 mg PO Q4H PRN PRN Reason: PAIN Albuterol Sulfate (Ventolin 0.083% Nebulizer Soln -) 1 amp NEB Q4H PRN PRN Reason: SHORT OF BREATH/WHEEZING Albuterol/Ipratropium (Duoneb -) 1 amp NEB TIDR [facility] Last Admin: 02/21/17 06:20 Dose: 1 amp Alprazolam (Xanax -) 0.25 mg PO Q6H PRN Last Admin: 02/20/17 20:51 Dose: 0.25 mg Bacitracin (Bacitracin -) 1 applic TP BID [facility] Last Admin: 02/21/17 09:52 Dose: 1 applic Diltiazem HCl (Cardizem Injection -) 10 mg IVPUSH Q4H PRN PRN Reason: TACHYCARDIA Last Admin: 02/13/17 12:13 Dose: 10 mg Diltiazem HCl (Cardizem Cd -) 180 mg PO DAILY [facility] Last Admin: 02/21/17 09:49 Dose: 180 mg Docusate Sodium (Colace -) 100 mg PO BID [facility] Last Admin: 02/21/17 09:49 Dose: 100 mg Gabapentin (Neurontin -) 100 mg PO TID [facility] Last Admin: 02/21/17 05:11 Dose: 100 mg Haloperidol (Haldol Injection (Fast Acting) -) 2 mg IM Q4H PRN PRN Reason: AGITATION Heparin Sodium (Porcine) (Heparin -) 1,000 unit IVPUSH PRN PRN PRN Reason: Heparin Last Admin: 02/17/17 20:13 Dose: 1,000 unit Heparin Sodium (Porcine) (Heparin -) 5,000 unit IVPUSH PRN PRN PRN Reason: Heparin Last Admin: 02/21/17 08:45 Dose: 5,000 unit Hydromorphone HCl (Dilaudid Injection -) 1 mg IVPB Q4H PRN PRN Reason: PAIN Last Admin: 02/17/17 22:22 Dose: 1 mg Heparin Sodium (Porcine) 25, (000 unit/ Sodium Chloride) 500 mls @ 20 mls/hr IV TITR [facility]; 1,000 UNIT/HR PRN Reason: Protocol Last Titration: 02/21/17 08:45 Dose: 2,350 unit/hr Cefazolin Sodium/Dextrose (Ancef 2 Gm Premixed Ivpb -) 50 mls @ 100 mls/hr IVPB Q8H-IV [facility] Last Admin: 02/21/17 11:31 Dose: 100 mls/hr Ertapenem 1 gm/ Sodium (Chloride) 50 mls @ 50 mls/hr IVPB DAILY [facility] PRN Reason: Protocol Lidocaine (Lidoderm Patch -) 1 patch TP DAILY [facility] Last Admin: 02/21/17 09:51 Dose: 1 patch Metoprolol Tartrate (Lopressor Injection -) 5 mg IVPUSH Q4H PRN Last Admin: 02/16/17 05:48 Dose: 5 mg Metoprolol Tartrate (Lopressor -) 50 mg PO BID [facility] Last Admin: 02/21/17 09:49 Dose: 50 mg Miscellaneous (Lidoderm Patch Removal) 1 each MC DAILY@2200 [facility] Last Admin: 02/20/17 21:07 Dose: 1 each Montelukast Sodium (Singulair -) 10 mg PO HS [facility] Last Admin: 02/20/17 21:08 Dose: 10 mg Non-Formulary Medication (Fluticasone/Salmeterol [Advair Hfa 230-21 Mcg Inhaler] ) 1 inh PO BID [facility] Nystatin (Mycostatin Cream -) 1 applic TP BID [facility] Last Admin: 02/21/17 09:51 Dose: 1 applic Ondansetron HCl (Zofran Injection) 4 mg IVPB Q6H PRN PRN Reason: NAUSEA Oxycodone HCl (Roxicodone -) 5 mg PO Q4H PRN PRN Reason: PAIN Last Admin: 02/18/17 09:09 Dose: 5 mg Polyethylene Glycol (Miralax (For Daily Use) -) 17 gm PO BID [facility] Last Admin: 02/21/17 10:23 Dose: Not Given Valacyclovir HCl (Valtrex -) 1,000 mg PO BID [facility] Last Admin: 02/21/17 09:48 Dose: 1,000 mg - Objective Vital Signs: Vital Signs Temperature 101.6 F H 02/21/17 09:46 Pulse Rate 102 H 02/21/17 09:46 Respiratory Rate 22 02/21/17 09:46 Blood Pressure 172/85 02/21/17 09:46 O2 Sat by Pulse Oximetry (%) 98 02/20/17 21:00 Constitutional: Yes: Well Nourished, Calm Eyes: Yes: WNL HENT: Yes: WNL Neck: Yes: WNL Cardiovascular: Yes: Pulse Irregular, S1, S2 Respiratory: Yes: Diminished Gastrointestinal: Yes: Normal Bowel Sounds, Soft Extremities: Yes: WNL Edema: No Labs: CBC, BMP 02/21/17 05:38 02/21/17 05:38 INR, PTT INR 1.28 (0.82-1.09) H 02/15/17 06:00 Fibrinogen 668.0 mg/dL (238-498) H 02/15/17 06:00 Assessment/Plan Problem List - Problems (1) AAA (abdominal aortic aneurysm) without rupture Code(s): I71.4 - ABDOMINAL AORTIC ANEURYSM, WITHOUT RUPTURE (2) ALBERTO (acute kidney injury) Code(s): N17.9 - ACUTE KIDNEY FAILURE, UNSPECIFIED (3) Atrial fibrillation with rapid ventricular response Code(s): I48.91 - UNSPECIFIED ATRIAL FIBRILLATION (4) Back pain Code(s): M54.9 - DORSALGIA, UNSPECIFIED Qualifiers: Back pain location: low back pain Chronicity: acute Back pain laterality: bilateral Sciatica presence: without sciatica Qualified Code(s): M54.5 - Low back pain (5) Foot pain, left Code(s): M79.672 - PAIN IN LEFT FOOT (6) Hypotension Code(s): I95.9 - HYPOTENSION, UNSPECIFIED Qualifiers: Hypotension type: unspecified hypotension type Qualified Code(s): I95.9 - Hypotension, unspecified (7) MSSA (methicillin susceptible Staphylococcus aureus) septicemia Code(s): A41.01 - SEPSIS DUE TO METHICILLIN SUSCEPTIBLE STAPHYLOCOCCUS AUREUS (8) Paroxysmal atrial fibrillation with RVR Code(s): I48.0 - PAROXYSMAL ATRIAL FIBRILLATION (9) Sepsis Code(s): A41.9 - SEPSIS, UNSPECIFIED ORGANISM (10) Thoracic aortic aneurysm without rupture Code(s): I71.2 - THORACIC AORTIC ANEURYSM, WITHOUT RUPTURE Assessment/Plan O2 at maintain sat 90% ABX Per ID Inhaled bronchodilators AC with IV Heparin Strict I&O BD TX chest x-ray today DR MARTE
[2017-02-21] MEDS: ERTAPENEM SODIUM 1 GM in SODIUM CHLORIDE 50 ML IVPB SCH (13:36)
[2017-02-21] MEDS ORDERED: FUROSEMIDE 40 MG TABLET (FP) PO ONE (16:23)
--- NOTE | 2017-02-21 16:23 | PN ---
Progress Note, Physician History of Present Illness: Pt seen and examined at bedside. He is awake and alert. He does have some shortness of breath and lower extremity edema. - Current Medication List Current Medications: Active Medications Acetaminophen (Tylenol -) 650 mg PO Q4H PRN PRN Reason: FEVER OR PAIN Last Admin: 02/21/17 09:49 Dose: 650 mg Acetaminophen (Tylenol -) 650 mg PO Q4H PRN PRN Reason: PAIN Albuterol Sulfate (Ventolin 0.083% Nebulizer Soln -) 1 amp NEB Q4H PRN PRN Reason: SHORT OF BREATH/WHEEZING Albuterol/Ipratropium (Duoneb -) 1 amp NEB TIDR [facility]ITILA Last Admin: 02/21/17 14:20 Dose: 1 amp Alprazolam (Xanax -) 0.25 mg PO Q6H PRN Last Admin: 02/20/17 20:51 Dose: 0.25 mg Bacitracin (Bacitracin -) 1 applic TP BID [facility] Last Admin: 02/21/17 09:52 Dose: 1 applic Diltiazem HCl (Cardizem Injection -) 10 mg IVPUSH Q4H PRN PRN Reason: TACHYCARDIA Last Admin: 02/13/17 12:13 Dose: 10 mg Diltiazem HCl (Cardizem Cd -) 180 mg PO DAILY [facility] Last Admin: 02/21/17 09:49 Dose: 180 mg Docusate Sodium (Colace -) 100 mg PO BID [facility] Last Admin: 02/21/17 09:49 Dose: 100 mg Gabapentin (Neurontin -) 100 mg PO TID [facility] Last Admin: 02/21/17 13:36 Dose: 100 mg Haloperidol (Haldol Injection (Fast Acting) -) 2 mg IM Q4H PRN PRN Reason: AGITATION Heparin Sodium (Porcine) (Heparin -) 1,000 unit IVPUSH PRN PRN PRN Reason: Heparin Last Admin: 02/17/17 20:13 Dose: 1,000 unit Heparin Sodium (Porcine) (Heparin -) 5,000 unit IVPUSH PRN PRN PRN Reason: Heparin Last Admin: 02/21/17 08:45 Dose: 5,000 unit Hydromorphone HCl (Dilaudid Injection -) 1 mg IVPB Q4H PRN PRN Reason: PAIN Last Admin: 02/17/17 22:22 Dose: 1 mg Heparin Sodium (Porcine) 25, (000 unit/ Sodium Chloride) 500 mls @ 20 mls/hr IV TITR DOMITILA; 1,000 UNIT/HR PRN Reason: Protocol Last Titration: 02/21/17 08:45 Dose: 2,350 unit/hr Cefazolin Sodium/Dextrose (Ancef 2 Gm Premixed Ivpb -) 50 mls @ 100 mls/hr IVPB Q8H-IV [facility]A Last Admin: 02/21/17 11:31 Dose: 100 mls/hr Ertapenem 1 gm/ Sodium (Chloride) 50 mls @ 50 mls/hr IVPB DAILY [facility] PRN Reason: Protocol Last Admin: 02/21/17 13:36 Dose: 50 mls/hr Lidocaine (Lidoderm Patch -) 1 patch TP DAILY [facility] Last Admin: 02/21/17 09:51 Dose: 1 patch Metoprolol Tartrate (Lopressor Injection -) 5 mg IVPUSH Q4H PRN Last Admin: 02/16/17 05:48 Dose: 5 mg Metoprolol Tartrate (Lopressor -) 50 mg PO BID [facility] Last Admin: 02/21/17 09:49 Dose: 50 mg Miscellaneous (Lidoderm Patch Removal) 1 each MC DAILY@2200 [facility] Last Admin: 02/20/17 21:07 Dose: 1 each Montelukast Sodium (Singulair -) 10 mg PO HS [facility] Last Admin: 02/20/17 21:08 Dose: 10 mg Non-Formulary Medication (Fluticasone/Salmeterol [Advair Hfa 230-21 Mcg Inhaler] ) 1 inh PO BID [facility] Nystatin (Mycostatin Cream -) 1 applic TP BID [facility] Last Admin: 02/21/17 09:51 Dose: 1 applic Ondansetron HCl (Zofran Injection) 4 mg IVPB Q6H PRN PRN Reason: NAUSEA Oxycodone HCl (Roxicodone -) 5 mg PO Q4H PRN PRN Reason: PAIN Last Admin: 02/18/17 09:09 Dose: 5 mg Polyethylene Glycol (Miralax (For Daily Use) -) 17 gm PO BID [facility] Last Admin: 02/21/17 10:23 Dose: Not Given Valacyclovir HCl (Valtrex -) 1,000 mg PO BID [facility] Last Admin: 02/21/17 09:48 Dose: 1,000 mg - Objective Vital Signs: Vital Signs Temperature 99.5 F 02/21/17 14:30 Pulse Rate 87 02/21/17 14:30 Respiratory Rate 20 02/21/17 14:30 Blood Pressure 142/79 02/21/17 14:30 O2 Sat by Pulse Oximetry (%) 98 02/20/17 21:00 Constitutional: Yes: Calm Eyes: Yes: Conjunctiva Clear Cardiovascular: Yes: S1, S2 Respiratory: Yes: On Nasal O2, Rhonchi Gastrointestinal: Yes: Soft, Abdomen, Obese Genitourinary: Yes: Fragoso Present Musculoskeletal: Yes: WNL Edema: Yes Edema: LLE: 1+, RLE: 1+ Neurological: Yes: Oriented Psychiatric: Yes: Oriented Labs: CBC, BMP 02/21/17 05:38 02/21/17 05:38 INR, PTT INR 1.28 (0.82-1.09) H 02/15/17 06:00 Fibrinogen 668.0 mg/dL (238-498) H 02/15/17 06:00 Problem List - Problems (1) Back pain Code(s): M54.9 - DORSALGIA, UNSPECIFIED Qualifiers: Back pain location: low back pain Chronicity: acute Back pain laterality: bilateral Sciatica presence: without sciatica Qualified Code(s): M54.5 - Low back pain (2) Hypotension Code(s): I95.9 - HYPOTENSION, UNSPECIFIED Qualifiers: Hypotension type: unspecified hypotension type Qualified Code(s): I95.9 - Hypotension, unspecified (3) ALBERTO (acute kidney injury) Code(s): N17.9 - ACUTE KIDNEY FAILURE, UNSPECIFIED Assessment/Plan Current Medications Generic Name Dose Route Start Last Admin Trade Name Freq PRN Reason Stop Dose Admin Acetaminophen 650 mg 02/10/17 15:43 02/21/17 09:49 Tylenol - PO 650 mg Q4H PRN Administration FEVER OR PAIN Acetaminophen 650 mg 02/20/17 13:25 Tylenol - PO Q4H PRN PAIN Albuterol Sulfate 1 amp 02/17/17 16:46 Ventolin 0.083% Nebulizer Soln - NEB Q4H PRN SHORT OF BREATH/WHEEZING Albuterol/Ipratropium 1 amp 02/17/17 22:00 02/21/17 14:20 Duoneb - NEB 1 amp TIDR DOMITILA Administration Alprazolam 0.25 mg 02/13/17 02:25 02/20/17 20:51 Xanax - PO 0.25 mg Q6H PRN Administration Bacitracin 1 applic 02/20/17 12:00 02/21/17 09:52 Bacitracin - TP 1 applic BID DOMITILA Administration Diltiazem HCl 10 mg 02/12/17 07:18 02/13/17 12:13 Cardizem Injection - IVPUSH 10 mg Q4H PRN Administration TACHYCARDIA Diltiazem HCl 180 mg 02/16/17 10:00 02/21/17 09:49 Cardizem Cd - PO 180 mg DAILY [facility]ILA Administration Docusate Sodium 100 mg 02/10/17 22:00 02/21/17 09:49 Colace - PO 100 mg BID DOM[facility]ILA Administration Gabapentin 100 mg 02/11/17 08:00 02/21/17 13:36 Neurontin - PO 100 mg TID [facility]ILA Administration Haloperidol 2 mg 02/17/17 08:22 Haldol Injection (Fast Acting) - IM Q4H PRN AGITATION Heparin Sodium (Porcine) 1,000 unit 02/12/17 06:55 02/17/17 20:13 Heparin - IVPUSH 1,000 unit PRN PRN Administration Heparin Heparin Sodium (Porcine) 5,000 unit 02/12/17 06:55 02/21/17 08:45 Heparin - IVPUSH 5,000 unit PRN PRN Administration Heparin Hydromorphone HCl 1 mg 02/10/17 15:43 02/17/17 22:22 Dilaudid Injection - IVPB 1 mg Q4H PRN Administration PAIN Heparin Sodium (Porcine) 25, 500 mls @ 20 mls/hr 02/12/17 07:00 02/21/17 08:45 000 unit/ Sodium Chloride IV 2,350 unit/hr TITR DOMITILA Titration Protocol 1,000 UNIT/HR Cefazolin Sodium/Dextrose 50 mls @ 100 mls/hr 02/12/17 10:00 02/21/17 11:31 Ancef 2 Gm Premixed Ivpb - IVPB 100 mls/hr Q8H-IV DOMITILA Administration Ertapenem 1 gm/ Sodium 50 mls @ 50 mls/hr 02/21/17 12:00 02/21/17 13:36 Chloride IVPB 50 mls/hr DAILY [facility]ILA Administration Protocol Lidocaine 1 patch 02/11/17 10:00 02/21/17 09:51 Lidoderm Patch - TP 1 patch DAILY [facility] Administration Metoprolol Tartrate 5 mg 02/12/17 23:16 02/16/17 05:48 Lopressor Injection - IVPUSH 5 mg Q4H PRN Administration Metoprolol Tartrate 50 mg 02/14/17 22:00 02/21/17 09:49 Lopressor - PO 50 mg BID [facility] Administration Miscellaneous 1 each 02/11/17 22:00 02/20/17 21:07 Lidoderm Patch Removal MC 1 each DAILY@2200 [facility] Administration Montelukast Sodium 10 mg 02/10/17 22:00 02/20/17 21:08 Singulair - PO 10 mg HS [facility]A Administration Non-Formulary Medication 1 inh 02/10/17 22:00 Fluticasone/Salmeterol [Advair Hfa 230-21 Mcg Inhaler] PO BID [facility] Nystatin 1 applic 02/19/17 23:00 02/21/17 09:51 Mycostatin Cream - TP 1 applic BID [facility] Administration Ondansetron HCl 4 mg 02/10/17 15:43 Zofran Injection IVPB Q6H PRN NAUSEA Oxycodone HCl 5 mg 02/10/17 15:43 02/18/17 09:09 Roxicodone - PO 5 mg Q4H PRN Administration PAIN Polyethylene Glycol 17 gm 02/14/17 22:00 02/21/17 10:23 Miralax (For Daily Use) - PO Not Given BID [facility] Valacyclovir HCl 1,000 mg 02/16/17 11:00 02/21/17 09:48 Valtrex - PO 1,000 mg BID [facility] Administration Impression 1. ALEBRTO 2. lactic acidosis 3. hypotension 4. hx of HTN 5. asthma 6. back pain 7. r/o dissection 8. sepsis 9. bacteremia 10. PFO 11. hypernatremia - resolving Plan - renal function is stable - will give 40 mg of furosemide PO - repeat labs in am - abx per ID - monitor cultures - pt is now off of fluids and tolerating diet Dr Traore
[2017-02-21] MEDS: LIDOCAINE PATCH REMOVAL MC SCH (21:08)
[2017-02-21] MEDS: MONTELUKAST NA 10 MG TABLET PO SCH (21:08)
[2017-02-22] MEDS ORDERED: PT OWN MED DRAWER 7, Y5N ONE ×3 (01:06→17:43)
[2017-02-22] MEDS: CEFAZOLIN 2 GM/D5W 50 ML IVPB SCH ×3 (01:08→18:07)
[2017-02-22] MEDS: oxyCODONE HCL 5 MG TABLET PO PRN ×2 (04:42→21:38)
[2017-02-22] MEDS: ACETAMINOPHEN 325 MG TABLET (FP) PO PRN ×2 (04:44→20:21)
[2017-02-22] MEDS: GABAPENTIN 100 MG CAPSULE (FP) PO SCH ×3 (05:05→21:23)
[2017-02-22] MEDS: ALBUTEROL SO4 2.5/IPRATROPIUM 0.5 INH SOL 3 ML VIAL.NEB. NEB SCH ×3 (06:15→21:42)
[2017-02-22 06:52] LABS: MCH 33.6 pg (25.7-33.7); MCHC 33.4 g/dl (32.0-35.9); MEAN CELL VOLUME 100.7 fl (80-96); MEAN PLT VOLUME 9.5 fl (7.5-11.1); PLATELET COUNT 371 K/MM3 (134-434); RDW 14.4 % (11.9-15.9); WHITE BLOOD COUNT 20.1 K/mm3 (4.0-10.0)
[2017-02-22 07:20] LABS: ALBUMIN 1.6 g/dl (3.4-5.0); ANION GAP 8 (8-16); CALCIUM 7.7 mg/dL (8.5-10.1); CO2 32 mmol/L (21-32); CREATININE 0.7 mg/dL (0.7-1.3); GLUCOSE,RANDOM 73 mg/dL (74-106); SGOT/AST 23 U/L (15-37); SGPT/ALT 8 U/L (12-78)
[2017-02-22 07:22] LABS: ALK PHOS 85 U/L (45-117); BILIRUBIN,TOTAL 1.1 mg/dL (0.2-1.0); TOT PROT 6.4 g/dl (6.4-8.2)
--- NOTE | 2017-02-22 07:34 | PN ---
Progress Note (short form) - Note Progress Note: Chief Complaint: Events noted, notes reviewed, denies any chest pain or dyspnea History of Present Illness: Seen and examined on telemetry. Events noted, notes reviewed, denies any chest pain or dyspnea Sub-therapeutic Heparin - Current Medication List Current Medications Acetaminophen (Tylenol -) 650 mg PO Q4H PRN PRN Reason: FEVER OR PAIN Last Admin: 02/22/17 04:44 Dose: 650 mg Acetaminophen (Tylenol -) 650 mg PO Q4H PRN PRN Reason: PAIN Albuterol Sulfate (Ventolin 0.083% Nebulizer Soln -) 1 amp NEB Q4H PRN PRN Reason: SHORT OF BREATH/WHEEZING Albuterol/Ipratropium (Duoneb -) 1 amp NEB TIDR ON LICENSE OF [facility] Last Admin: 02/22/17 06:15 Dose: 1 amp Alprazolam (Xanax -) 0.25 mg PO Q6H PRN Last Admin: 02/20/17 20:51 Dose: 0.25 mg Bacitracin (Bacitracin -) 1 applic TP BID [facility] Last Admin: 02/21/17 21:07 Dose: 1 applic Diltiazem HCl (Cardizem Injection -) 10 mg IVPUSH Q4H PRN PRN Reason: TACHYCARDIA Last Admin: 02/13/17 12:13 Dose: 10 mg Diltiazem HCl (Cardizem Cd -) 180 mg PO DAILY [facility] Last Admin: 02/21/17 09:49 Dose: 180 mg Docusate Sodium (Colace -) 100 mg PO BID [facility] Last Admin: 02/21/17 21:06 Dose: Not Given Gabapentin (Neurontin -) 100 mg PO TID [facility] Last Admin: 02/22/17 05:05 Dose: 100 mg Haloperidol (Haldol Injection (Fast Acting) -) 2 mg IM Q4H PRN PRN Reason: AGITATION Heparin Sodium (Porcine) (Heparin -) 1,000 unit IVPUSH PRN PRN PRN Reason: Heparin Last Admin: 02/21/17 17:35 Dose: 1,000 unit Heparin Sodium (Porcine) (Heparin -) 5,000 unit IVPUSH PRN PRN PRN Reason: Heparin Last Admin: 02/22/17 07:44 Dose: 5,000 unit Hydromorphone HCl (Dilaudid Injection -) 1 mg IVPB Q4H PRN PRN Reason: PAIN Last Admin: 02/17/17 22:22 Dose: 1 mg Heparin Sodium (Porcine) 25, (000 unit/ Sodium Chloride) 500 mls @ 20 mls/hr IV TITR DOMITILA; 1,000 UNIT/HR PRN Reason: Protocol Last Admin: 02/21/17 23:43 Dose: 52 mls/hr Cefazolin Sodium/Dextrose (Ancef 2 Gm Premixed Ivpb -) 50 mls @ 100 mls/hr IVPB Q8H-IV [facility] Last Admin: 02/22/17 01:08 Dose: 100 mls/hr Ertapenem 1 gm/ Sodium (Chloride) 50 mls @ 50 mls/hr IVPB DAILY [facility] PRN Reason: Protocol Last Admin: 02/21/17 13:36 Dose: 50 mls/hr Lidocaine (Lidoderm Patch -) 1 patch TP DAILY [facility] Last Admin: 02/21/17 09:51 Dose: 1 patch Metoprolol Tartrate (Lopressor Injection -) 5 mg IVPUSH Q4H PRN Last Admin: 02/16/17 05:48 Dose: 5 mg Metoprolol Tartrate (Lopressor -) 50 mg PO BID [facility] Last Admin: 02/21/17 21:08 Dose: 50 mg Miscellaneous (Lidoderm Patch Removal) 1 each MC DAILY@2200 [facility] Last Admin: 02/21/17 21:08 Dose: 1 each Montelukast Sodium (Singulair -) 10 mg PO HS [facility] Last Admin: 02/21/17 21:08 Dose: 10 mg Non-Formulary Medication (Fluticasone/Salmeterol [Advair Hfa 230-21 Mcg Inhaler] ) 1 inh PO BID [facility] Nystatin (Mycostatin Cream -) 1 applic TP BID [facility] Last Admin: 02/21/17 21:08 Dose: 1 applic Ondansetron HCl (Zofran Injection) 4 mg IVPB Q6H PRN PRN Reason: NAUSEA Oxycodone HCl (Roxicodone -) 5 mg PO Q4H PRN PRN Reason: PAIN Last Admin: 02/22/17 04:42 Dose: 5 mg Polyethylene Glycol (Miralax (For Daily Use) -) 17 gm PO BID [facility] Last Admin: 02/21/17 21:06 Dose: Not Given Valacyclovir HCl (Valtrex -) 1,000 mg PO BID [facility] Last Admin: 02/21/17 21:08 Dose: 1,000 mg Review of Systems Cardiovascular: As noted above Respiratory: denies: Cough or Sputum Production Gastrointestinal: denies: Nausea, Vomiting, Diarrhea, Constipation or Abdominal Discomfort Musculoskeletal: Back Pain Endocrine: No Symptoms Reported - Objective Vital Signs: Last Vital Signs Temp Pulse Resp BP Pulse Ox 98.2 F 83 20 141/83 95 02/22/17 06:00 02/22/17 06:00 02/22/17 06:00 02/22/17 06:00 02/21/17 21:00 Neck: Supple Negative JVD Cardiovascular: S1 S2 Regular Rate and Rhythm Respiratory: Diminished Breath Sounds at the Bases Gastrointestinal: Soft Benign Normal Bowel Sounds Ext: Edema Labs: CBC, BMP 02/22/17 05:35 02/22/17 05:35 Hepatic Panel Total Bilirubin 1.1 mg/dL (0.2-1.0) H D 02/22/17 05:35 AST 23 U/L (15-37) 02/22/17 05:35 ALT 8 U/L (12-78) L 02/22/17 05:35 Alkaline Phosphatase 85 U/L (45-117) 02/22/17 05:35 Albumin 1.6 g/dl (3.4-5.0) L 02/22/17 05:35 Assessment/Plan ASSESSMENT: 1. Persistent MSSA bacteremia - septic discitis, osteomyelitis and epidural abscess lumbar spine 2. Paroxysmal atrial fibrillation [id number] of 2 with possible left foot thrombo-embolism vs septic emboli, Heparin sub-therapeutic dose 3. Acute on chronic exacerbation of diastolic failure, improved 4. Thoracic aortic aneurysm 5. Toxic metabolic encephalopathy, resolved 6. ALBERTO and lactic acidosis, resolved 7. Thrombocytopenia due to sepsis, resolved 8. Acute on chronic diastolic failure improved PLAN: 1. Continue Cardizem CD, hemodynamics permitting 2. Continue Lopressor, hemodynamics permitting 3. Continue Heparin drip with caution given recent thrombocytopenia and if no intervention is planned recommend initiating NOAC's, considering patient has already had an embolic event ([id number] score is probably 4) 4. Continue antibiotic coverage as per the primary/ID teams Grayson Burkett MD
--- NOTE | 2017-02-22 07:42 | PN ---
Progress Note (short form) - Note Progress Note: NEUROSURGERY "A lot better" More awake PE: Tmax 101.6 now 98.2, VSS HEENT- NC/AT; Neck- supple; Cor- RR; Lungs- no wheezes; Abd- obese, benign; Ext - No sign of DVT except mild chronic B edema CN- intact; Motor- 4+/5 B UE/LE except L IP/Quad/EHL/TA/gastroc/inv/ev 4- pain; Sensation- diminished LT L L4-5 WBC 20K MSSA on blood culture + 1/2 from 02/14; 02-16 specimen + 1/2 MSSA; 6-3 cultures 1 /2 +; re-cultured L4-5 spondylolisthesis with stenosis and mechanical LBP and L L4-5 radiculopathy L4-5 discitis/osteomyelitis with anterior epidural soft tissue infection Clinically somewhat improved, though re-spiked yesterday On combination iv abx tx (inc ertepenem) per ID D/w Dr Genitle yesterday not interested in surgical intervention (laminectomies unlikely to adequately debride the phlegmon anterior to thecal sac L3-5 anyway)
[2017-02-22] MEDS: HEPARIN NA (PORCINE) 5,000 UNITS/ML 1ML VIAL IVPUSH PRN (07:44)
[2017-02-22] MEDS: HEPARIN - 25,000 UNIT in SODIUM CHLORIDE 495 ML IV SCH (07:50)
[2017-02-22 08:51] LABS: PLATELET ESTIMATE ADEQUATE (NORMAL)
[2017-02-22] MEDS: POLYETHYLENE GLYCOL 3350 119 GM BTL PO SCH ×2 (09:55→21:21)
[2017-02-22] MEDS: DOCUSATE SODIUM 100 MG CAPSULE (FP) PO SCH ×2 (09:56→21:21)
[2017-02-22] MEDS ORDERED: ERTAPENEM SODIUM 1 GM in SODIUM CHLORIDE 50 ML IVPB SCH (10:00)
[2017-02-22] MEDS: ERTAPENEM SODIUM 1 GM in SODIUM CHLORIDE 50 ML IVPB SCH (10:00)
[2017-02-22] MEDS: valACYclovir HCL 500 MG TABLET (FP) PO SCH ×2 (10:01→21:22)
[2017-02-22] MEDS: METOPROLOL TARTRATE 50 MG TABLET (FP) PO SCH ×2 (10:01→21:22)
[2017-02-22] MEDS: LIDOCAINE 5% TOPICAL PATCH TP SCH (10:03)
[2017-02-22] MEDS: NYSTATIN 100,000 UNIT/GM TOPICAL CREAM 15 GM TUBE TP SCH ×2 (10:04→21:22)
[2017-02-22] MEDS: BACITRACIN 30 GM TUBE TOPICAL OINTMENT TP SCH ×2 (10:04→21:22)
--- NOTE | 2017-02-22 11:34 | PN ---
Progress Note, Physician History of Present Illness: pulmonary alert,-resp distress,afebrile - Current Medication List Current Medications: Active Medications Acetaminophen (Tylenol -) 650 mg PO Q4H PRN PRN Reason: FEVER OR PAIN Last Admin: 02/22/17 04:44 Dose: 650 mg Acetaminophen (Tylenol -) 650 mg PO Q4H PRN PRN Reason: PAIN Albuterol Sulfate (Ventolin 0.083% Nebulizer Soln -) 1 amp NEB Q4H PRN PRN Reason: SHORT OF BREATH/WHEEZING Albuterol/Ipratropium (Duoneb -) 1 amp NEB TIDR [facility] Last Admin: 02/22/17 06:15 Dose: 1 amp Alprazolam (Xanax -) 0.25 mg PO Q6H PRN Last Admin: 02/20/17 20:51 Dose: 0.25 mg Bacitracin (Bacitracin -) 1 applic TP BID [facility] Last Admin: 02/22/17 10:04 Dose: 1 applic Diltiazem HCl (Cardizem Injection -) 10 mg IVPUSH Q4H PRN PRN Reason: TACHYCARDIA Last Admin: 02/13/17 12:13 Dose: 10 mg Diltiazem HCl (Cardizem Cd -) 180 mg PO DAILY [facility] Last Admin: 02/22/17 10:01 Dose: 180 mg Docusate Sodium (Colace -) 100 mg PO BID [facility] Last Admin: 02/22/17 09:56 Dose: Not Given Gabapentin (Neurontin -) 100 mg PO TID [facility] Last Admin: 02/22/17 05:05 Dose: 100 mg Haloperidol (Haldol Injection (Fast Acting) -) 2 mg IM Q4H PRN PRN Reason: AGITATION Heparin Sodium (Porcine) (Heparin -) 1,000 unit IVPUSH PRN PRN PRN Reason: Heparin Last Admin: 02/21/17 17:35 Dose: 1,000 unit Heparin Sodium (Porcine) (Heparin -) 5,000 unit IVPUSH PRN PRN PRN Reason: Heparin Last Admin: 02/22/17 07:44 Dose: 5,000 unit Hydromorphone HCl (Dilaudid Injection -) 1 mg IVPB Q4H PRN PRN Reason: PAIN Last Admin: 02/17/17 22:22 Dose: 1 mg Heparin Sodium (Porcine) 25, (000 unit/ Sodium Chloride) 500 mls @ 20 mls/hr IV TITR DOMITILA; 1,000 UNIT/HR PRN Reason: Protocol Last Admin: 02/22/17 07:50 Dose: 55 mls/hr Cefazolin Sodium/Dextrose (Ancef 2 Gm Premixed Ivpb -) 50 mls @ 100 mls/hr IVPB Q8H-IV [facility] Last Admin: 02/22/17 01:08 Dose: 100 mls/hr Ertapenem 1 gm/ Sodium (Chloride) 50 mls @ 50 mls/hr IVPB DAILY [facility] PRN Reason: Protocol Last Admin: 02/22/17 10:00 Dose: 50 mls/hr Lidocaine (Lidoderm Patch -) 1 patch TP DAILY [facility] Last Admin: 02/22/17 10:03 Dose: 1 patch Metoprolol Tartrate (Lopressor Injection -) 5 mg IVPUSH Q4H PRN Last Admin: 02/16/17 05:48 Dose: 5 mg Metoprolol Tartrate (Lopressor -) 50 mg PO BID [facility] Last Admin: 02/22/17 10:01 Dose: 50 mg Miscellaneous (Lidoderm Patch Removal) 1 each MC DAILY@2200 [facility] Last Admin: 02/21/17 21:08 Dose: 1 each Montelukast Sodium (Singulair -) 10 mg PO HS [facility] Last Admin: 02/21/17 21:08 Dose: 10 mg Non-Formulary Medication (Fluticasone/Salmeterol [Advair Hfa 230-21 Mcg Inhaler] ) 1 inh PO BID [facility] Nystatin (Mycostatin Cream -) 1 applic TP BID [facility] Last Admin: 02/22/17 10:04 Dose: 1 applic Ondansetron HCl (Zofran Injection) 4 mg IVPB Q6H PRN PRN Reason: NAUSEA Oxycodone HCl (Roxicodone -) 5 mg PO Q4H PRN PRN Reason: PAIN Last Admin: 02/22/17 04:42 Dose: 5 mg Polyethylene Glycol (Miralax (For Daily Use) -) 17 gm PO BID [facility] Last Admin: 02/22/17 09:55 Dose: Not Given Valacyclovir HCl (Valtrex -) 1,000 mg PO BID [facility] Last Admin: 02/22/17 10:01 Dose: 1,000 mg - Objective Vital Signs: Vital Signs Temperature 98.2 F 02/22/17 06:00 Pulse Rate 83 02/22/17 06:00 Respiratory Rate 20 02/22/17 06:00 Blood Pressure 141/83 02/22/17 06:00 O2 Sat by Pulse Oximetry (%) 95 02/21/17 21:00 Constitutional: Yes: Well Nourished, Calm Eyes: Yes: WNL HENT: Yes: WNL Neck: Yes: WNL Cardiovascular: Yes: Pulse Irregular, S1, S2 Respiratory: Yes: Rhonchi (few scattered jes rhonchi) Gastrointestinal: Yes: Normal Bowel Sounds, Soft Extremities: Yes: WNL Edema: Yes Labs: CBC, BMP 02/22/17 05:35 02/22/17 05:35 INR, PTT INR 1.28 (0.82-1.09) H 02/15/17 06:00 Fibrinogen 668.0 mg/dL (238-498) H 02/15/17 06:00 Assessment/Plan Problem List - Problems (1) AAA (abdominal aortic aneurysm) without rupture Code(s): I71.4 - ABDOMINAL AORTIC ANEURYSM, WITHOUT RUPTURE (2) ALBERTO (acute kidney injury) Code(s): N17.9 - ACUTE KIDNEY FAILURE, UNSPECIFIED improved (3) Atrial fibrillation with rapid ventricular response Code(s): I48.91 - UNSPECIFIED ATRIAL FIBRILLATION (4) Back pain Code(s): M54.9 - DORSALGIA, UNSPECIFIED Qualifiers: Back pain location: low back pain Chronicity: acute Back pain laterality: bilateral Sciatica presence: without sciatica Qualified Code(s): M54.5 - Low back pain (5) Foot pain, left Code(s): M79.672 - PAIN IN LEFT FOOT (6) Hypotension Code(s): I95.9 - HYPOTENSION, UNSPECIFIED Qualifiers: Hypotension type: unspecified hypotension type Qualified Code(s): I95.9 - Hypotension, unspecified (7) MSSA (methicillin susceptible Staphylococcus aureus) septicemia Code(s): A41.01 - SEPSIS DUE TO METHICILLIN SUSCEPTIBLE STAPHYLOCOCCUS AUREUS (8) Paroxysmal atrial fibrillation with RVR Code(s): I48.0 - PAROXYSMAL ATRIAL FIBRILLATION (9) Sepsis Code(s): A41.9 - SEPSIS, UNSPECIFIED ORGANISM (10) Thoracic aortic aneurysm without rupture Code(s): I71.2 - THORACIC AORTIC ANEURYSM, WITHOUT RUPTURE Assessment/Plan O2 at maintain sat 90% ABX Per ID Inhaled bronchodilators AC with IV Heparin Strict I&O BD TX monitor wbc DR MARTE
--- NOTE | 2017-02-22 13:06 | PN ---
Progress Note, Physician History of Present Illness: Pt seen and examined at bedside. He feels that his breathing is a little better today. He denies chest pain. - Current Medication List Current Medications: Active Medications Acetaminophen (Tylenol -) 650 mg PO Q4H PRN PRN Reason: FEVER OR PAIN Last Admin: 02/22/17 04:44 Dose: 650 mg Acetaminophen (Tylenol -) 650 mg PO Q4H PRN PRN Reason: PAIN Albuterol Sulfate (Ventolin 0.083% Nebulizer Soln -) 1 amp NEB Q4H PRN PRN Reason: SHORT OF BREATH/WHEEZING Albuterol/Ipratropium (Duoneb -) 1 amp NEB TIDR [facility] Last Admin: 02/22/17 06:15 Dose: 1 amp Alprazolam (Xanax -) 0.25 mg PO Q6H PRN Last Admin: 02/20/17 20:51 Dose: 0.25 mg Bacitracin (Bacitracin -) 1 applic TP BID [facility] Last Admin: 02/22/17 10:04 Dose: 1 applic Diltiazem HCl (Cardizem Injection -) 10 mg IVPUSH Q4H PRN PRN Reason: TACHYCARDIA Last Admin: 02/13/17 12:13 Dose: 10 mg Diltiazem HCl (Cardizem Cd -) 180 mg PO DAILY [facility] Last Admin: 02/22/17 10:01 Dose: 180 mg Docusate Sodium (Colace -) 100 mg PO BID [facility] Last Admin: 02/22/17 09:56 Dose: Not Given Gabapentin (Neurontin -) 100 mg PO TID [facility] Last Admin: 02/22/17 05:05 Dose: 100 mg Haloperidol (Haldol Injection (Fast Acting) -) 2 mg IM Q4H PRN PRN Reason: AGITATION Heparin Sodium (Porcine) (Heparin -) 1,000 unit IVPUSH PRN PRN PRN Reason: Heparin Last Admin: 02/21/17 17:35 Dose: 1,000 unit Heparin Sodium (Porcine) (Heparin -) 5,000 unit IVPUSH PRN PRN PRN Reason: Heparin Last Admin: 02/22/17 07:44 Dose: 5,000 unit Hydromorphone HCl (Dilaudid Injection -) 1 mg IVPB Q4H PRN PRN Reason: PAIN Last Admin: 02/17/17 22:22 Dose: 1 mg Heparin Sodium (Porcine) 25, (000 unit/ Sodium Chloride) 500 mls @ 20 mls/hr IV TITR [facility]; 1,000 UNIT/HR PRN Reason: Protocol Last Admin: 02/22/17 07:50 Dose: 55 mls/hr Cefazolin Sodium/Dextrose (Ancef 2 Gm Premixed Ivpb -) 50 mls @ 100 mls/hr IVPB Q8H-IV [facility] Last Admin: 02/22/17 12:08 Dose: 100 mls/hr Ertapenem 1 gm/ Sodium (Chloride) 50 mls @ 50 mls/hr IVPB DAILY [facility] PRN Reason: Protocol Last Admin: 02/22/17 10:00 Dose: 50 mls/hr Lidocaine (Lidoderm Patch -) 1 patch TP DAILY [facility] Last Admin: 02/22/17 10:03 Dose: 1 patch Metoprolol Tartrate (Lopressor Injection -) 5 mg IVPUSH Q4H PRN Last Admin: 02/16/17 05:48 Dose: 5 mg Metoprolol Tartrate (Lopressor -) 50 mg PO BID [facility] Last Admin: 02/22/17 10:01 Dose: 50 mg Miscellaneous (Lidoderm Patch Removal) 1 each MC DAILY@2200 [facility] Last Admin: 02/21/17 21:08 Dose: 1 each Montelukast Sodium (Singulair -) 10 mg PO HS [facility] Last Admin: 02/21/17 21:08 Dose: 10 mg Non-Formulary Medication (Fluticasone/Salmeterol [Advair Hfa 230-21 Mcg Inhaler] ) 1 inh PO BID [facility] Nystatin (Mycostatin Cream -) 1 applic TP BID [facility] Last Admin: 02/22/17 10:04 Dose: 1 applic Ondansetron HCl (Zofran Injection) 4 mg IVPB Q6H PRN PRN Reason: NAUSEA Oxycodone HCl (Roxicodone -) 5 mg PO Q4H PRN PRN Reason: PAIN Last Admin: 02/22/17 04:42 Dose: 5 mg Polyethylene Glycol (Miralax (For Daily Use) -) 17 gm PO BID [facility] Last Admin: 02/22/17 09:55 Dose: Not Given Valacyclovir HCl (Valtrex -) 1,000 mg PO BID [facility] Last Admin: 02/22/17 10:01 Dose: 1,000 mg - Objective Vital Signs: Vital Signs Temperature 98.2 F 02/22/17 06:00 Pulse Rate 83 02/22/17 06:00 Respiratory Rate 20 02/22/17 06:00 Blood Pressure 141/83 02/22/17 06:00 O2 Sat by Pulse Oximetry (%) 95 02/21/17 21:00 Constitutional: Yes: Calm Eyes: Yes: Conjunctiva Clear HENT: Yes: Atraumatic Neck: Yes: Supple Cardiovascular: Yes: S1, S2 Respiratory: Yes: On Nasal O2 Gastrointestinal: Yes: Soft, Abdomen, Obese Genitourinary: Yes: Fragoso Present Musculoskeletal: Yes: Muscle Weakness Edema: Yes Edema: LLE: 1+, RLE: 1+ Neurological: Yes: Oriented Psychiatric: Yes: Oriented Labs: CBC, BMP 02/22/17 05:35 02/22/17 05:35 INR, PTT INR 1.28 (0.82-1.09) H 02/15/17 06:00 Fibrinogen 668.0 mg/dL (238-498) H 02/15/17 06:00 Problem List - Problems (1) Back pain Code(s): M54.9 - DORSALGIA, UNSPECIFIED Qualifiers: Back pain location: low back pain Chronicity: acute Back pain laterality: bilateral Sciatica presence: without sciatica Qualified Code(s): M54.5 - Low back pain (2) Hypotension Code(s): I95.9 - HYPOTENSION, UNSPECIFIED Qualifiers: Hypotension type: unspecified hypotension type Qualified Code(s): I95.9 - Hypotension, unspecified (3) ALBERTO (acute kidney injury) Code(s): N17.9 - ACUTE KIDNEY FAILURE, UNSPECIFIED Assessment/Plan Current Medications Generic Name Dose Route Start Last Admin Trade Name Freq PRN Reason Stop Dose Admin Acetaminophen 650 mg 02/10/17 15:43 02/22/17 04:44 Tylenol - PO 650 mg Q4H PRN Administration FEVER OR PAIN Acetaminophen 650 mg 02/20/17 13:25 Tylenol - PO Q4H PRN PAIN Albuterol Sulfate 1 amp 02/17/17 16:46 Ventolin 0.083% Nebulizer Soln - NEB Q4H PRN SHORT OF BREATH/WHEEZING Albuterol/Ipratropium 1 amp 02/17/17 22:00 02/22/17 06:15 Duoneb - NEB 1 amp TIDR [facility] Administration Alprazolam 0.25 mg 02/13/17 02:25 02/20/17 20:51 Xanax - PO 0.25 mg Q6H PRN Administration Bacitracin 1 applic 02/20/17 12:00 02/22/17 10:04 Bacitracin - TP 1 applic BID [facility] Administration Diltiazem HCl 10 mg 02/12/17 07:18 02/13/17 12:13 Cardizem Injection - IVPUSH 10 mg Q4H PRN Administration TACHYCARDIA Diltiazem HCl 180 mg 02/16/17 10:00 02/22/17 10:01 Cardizem Cd - PO 180 mg DAILY [facility] Administration Docusate Sodium 100 mg 02/10/17 22:00 02/22/17 09:56 Colace - PO Not Given BID [facility] Gabapentin 100 mg 02/11/17 08:00 02/22/17 05:05 Neurontin - PO 100 mg TID [facility] Administration Haloperidol 2 mg 02/17/17 08:22 Haldol Injection (Fast Acting) - IM Q4H PRN AGITATION Heparin Sodium (Porcine) 1,000 unit 02/12/17 06:55 02/21/17 17:35 Heparin - IVPUSH 1,000 unit PRN PRN Administration Heparin Heparin Sodium (Porcine) 5,000 unit 02/12/17 06:55 02/22/17 07:44 Heparin - IVPUSH 5,000 unit PRN PRN Administration Heparin Hydromorphone HCl 1 mg 02/10/17 15:43 02/17/17 22:22 Dilaudid Injection - IVPB 1 mg Q4H PRN Administration PAIN Heparin Sodium (Porcine) 25, 500 mls @ 20 mls/hr 02/12/17 07:00 02/22/17 07:50 000 unit/ Sodium Chloride IV 55 mls/hr TITR [facility] Administration Protocol 1,000 UNIT/HR Cefazolin Sodium/Dextrose 50 mls @ 100 mls/hr 02/12/17 10:00 02/22/17 12:08 Ancef 2 Gm Premixed Ivpb - IVPB 100 mls/hr Q8H-IV [facility] Administration Ertapenem 1 gm/ Sodium 50 mls @ 50 mls/hr 02/21/17 12:00 02/22/17 10:00 Chloride IVPB 50 mls/hr DAILY [facility] Administration Protocol Lidocaine 1 patch 02/11/17 10:00 02/22/17 10:03 Lidoderm Patch - TP 1 patch DAILY [facility] Administration Metoprolol Tartrate 5 mg 02/12/17 23:16 02/16/17 05:48 Lopressor Injection - IVPUSH 5 mg Q4H PRN Administration Metoprolol Tartrate 50 mg 02/14/17 22:00 02/22/17 10:01 Lopressor - PO 50 mg BID [facility] Administration Miscellaneous 1 each 02/11/17 22:00 02/21/17 21:08 Lidoderm Patch Removal MC 1 each DAILY@2200 [facility] Administration Montelukast Sodium 10 mg 02/10/17 22:00 02/21/17 21:08 Singulair - PO 10 mg HS [facility] Administration Non-Formulary Medication 1 inh 02/10/17 22:00 Fluticasone/Salmeterol [Advair Hfa 230-21 Mcg Inhaler] PO BID [facility] Nystatin 1 applic 02/19/17 23:00 02/22/17 10:04 Mycostatin Cream - TP 1 applic BID [facility] Administration Ondansetron HCl 4 mg 02/10/17 15:43 Zofran Injection IVPB Q6H PRN NAUSEA Oxycodone HCl 5 mg 02/10/17 15:43 02/22/17 04:42 Roxicodone - PO 5 mg Q4H PRN Administration PAIN Polyethylene Glycol 17 gm 02/14/17 22:00 02/22/17 09:55 Miralax (For Daily Use) - PO Not Given BID [facility] Valacyclovir HCl 1,000 mg 02/16/17 11:00 02/22/17 10:01 Valtrex - PO 1,000 mg BID [facility] Administration Impression 1. ALBRETO 2. lactic acidosis 3. hypotension 4. hx of HTN 5. asthma 6. back pain 7. r/o dissection 8. sepsis 9. bacteremia 10. PFO 11. hypernatremia - resolving Plan - repeat bmp in am - follow up cultures - will give another dose of lasix today - will follow pt - follow up cxr, pulmonary input appreciated Dr Traore
--- NOTE | 2017-02-22 13:32 | PN ---
Progress Note (short form) - Note Progress Note: Patient was on his cell phone this AM but off and on sleepy and lethargic. I reviewed his most recent MRI scan with radiology today and there is inflammation of vertebral bodies, discs and an epidural collection. The latter collection was not something IR could drain. I reviewed Dr. Mirza's note today and although he seems skeptical about a surgical procedure helping the patient , with a rising WBC count of 20,000, 8+ blood cultures and sed rate of 100 and CRP of 39 we are at at crossroad of decision making. He iis clinically more alert and aware but I believe we have to think of an alternative or additional mode of treatment. ??Tertiary care center. On Exam: Vital Signs Temp 98.2 F 02/22/17 06:00 Pulse 83 02/22/17 06:00 Resp 20 02/22/17 06:00 BP 141/83 02/22/17 06:00 Pulse Ox 95 02/21/17 21:00 Intake & Output 02/21/17 02/22/17 02/22/17 23:59 11:59 23:59 Intake Total 925 764 Output Total 2600 450 Balance -1675 314 Intake: IV 805 364 Heparin - 25,000 Unit In 560 Normal Saline - 495 ml @ 1,000 UNIT/HR 20 mls/hr IV TITR [facility] Rx#: [id number] Lft Hand #22 02/21/17 364 Rt Wrist #22 02/21/17 245 IVPB 50 Oral 120 350 Output: Urine 2600 450 Fragoso 2600 450 Other: Voiding Method Indwelling Catheter Indwelling Catheter Bowel Movement Yes Alert Chest: decreased breath sounds Cor: Reg Abdomen soft Ext: Left foot still has erythema and swelling especially in dorsum of foot. 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 Fib to NSR Acute pain on Rx Intermittent Delirium Hypertension IMP: Continue both IV antibiotics F/U Neurosurgeon and ID F/U CBC and basic and sed rate.profile Problem List - Problems (1) Atrial fibrillation with rapid ventricular response Code(s): I48.91 - UNSPECIFIED ATRIAL FIBRILLATION (2) Back pain Code(s): M54.9 - DORSALGIA, UNSPECIFIED Qualifiers: Back pain location: low back pain Chronicity: acute Back pain laterality: bilateral Sciatica presence: without sciatica Qualified Code(s): M54.5 - Low back pain (3) Sepsis Code(s): A41.9 - SEPSIS, UNSPECIFIED ORGANISM (4) ALBERTO (acute kidney injury) Code(s): N17.9 - ACUTE KIDNEY FAILURE, UNSPECIFIED (5) Hypotension Code(s): I95.9 - HYPOTENSION, UNSPECIFIED Qualifiers: Hypotension type: unspecified hypotension type Qualified Code(s): I95.9 - Hypotension, unspecified (6) Lactic acidosis Code(s): E87.2 - ACIDOSIS (7) Sepsis associated hypotension Code(s): A41.9 - SEPSIS, UNSPECIFIED ORGANISM (8) AAA (abdominal aortic aneurysm) without rupture Code(s): I71.4 - ABDOMINAL AORTIC ANEURYSM, WITHOUT RUPTURE (9) Pain Code(s): R52 - PAIN, UNSPECIFIED (10) Foot pain, left Code(s): M79.672 - PAIN IN LEFT FOOT
[2017-02-22] MEDS ORDERED: FUROSEMIDE 40 MG TABLET (FP) PO ONE (14:30)
--- NOTE | 2017-02-22 16:22 | CONSULT ---
Consult - text type - Consultation Consultation Note: Podiatry Consultation: 77 year old M presents to hospital for admission for severe back, foot pain of several days duration. Patient has been inpatient for almost two weeks. He is noted to have discitis and osteomyelitis lower back. Podiatry consultation requested for severe L foot pain/redness/swelling. Patient denies trauma to the foot. He denies stepping on a foreign body. Has had intermittent fevers, however currently is afebrile. PMHx: HTN, asthma Meds: noted in chart ALL: aloe SEN: Pedal pulses palpable, TG wnl, CFT brisk to all toes bilaterally. On the right foot, there is a 4th digit distal tuft ulcer with hyperkeratotic borders, mixed fibrogranular base, no probing to bone, no purulence, no fluctuance, no periwound erythema, no ascending cellulitis, no signs of active infection. On the left foot, there is moderate edema and erythema to the rearfoot and ankle. There is no appreciable fluctuant collection on palpation. There is no open wound noted. There is no signficant tenderness on ROM of ankle and subtalar joint. There is no soft tissue crepitus appreciated. WBC: 20.1 Blood Cx: staph aureus, most recently no growth x 24 hrs Imp: 77 year old M with R 4th digit ulcer, L foot swelling 1. No acute infectious process appreciated in the foot to suggest source of sepsis. 2. There is swelling/redness to the left foot, however given clinical impression I do not suspect an acute process such as abscess or septic arthritis. 3. Would continue with IV abx per ID. 4. L foot XR ordered. 5. Thank you for the courtesy of this consultation. Mini Lugo DPM
--- NOTE | 2017-02-22 17:32 | PN ---
Progress Note, Physician History of Present Illness: Awake, responsive No c/o back pain Temp spike, elevated WBC noted Ertapenem added to cefazolin - Current Medication List Current Medications: Active Medications Acetaminophen (Tylenol -) 650 mg PO Q4H PRN PRN Reason: FEVER OR PAIN Last Admin: 02/22/17 04:44 Dose: 650 mg Acetaminophen (Tylenol -) 650 mg PO Q4H PRN PRN Reason: PAIN Albuterol Sulfate (Ventolin 0.083% Nebulizer Soln -) 1 amp NEB Q4H PRN PRN Reason: SHORT OF BREATH/WHEEZING Albuterol/Ipratropium (Duoneb -) 1 amp NEB TIDR [facility] Last Admin: 02/22/17 14:37 Dose: 1 amp Alprazolam (Xanax -) 0.25 mg PO Q6H PRN Last Admin: 02/20/17 20:51 Dose: 0.25 mg Amino Acids (Prosource No Carb Liquid Pkt) 30 ml PO BID@0800,1730 [facility] Bacitracin (Bacitracin -) 1 applic TP BID [facility] Last Admin: 02/22/17 10:04 Dose: 1 applic Diltiazem HCl (Cardizem Injection -) 10 mg IVPUSH Q4H PRN PRN Reason: TACHYCARDIA Last Admin: 02/13/17 12:13 Dose: 10 mg Diltiazem HCl (Cardizem Cd -) 180 mg PO DAILY [facility] Last Admin: 02/22/17 10:01 Dose: 180 mg Docusate Sodium (Colace -) 100 mg PO BID [facility] Last Admin: 02/22/17 09:56 Dose: Not Given Gabapentin (Neurontin -) 100 mg PO TID [facility] Last Admin: 02/22/17 14:48 Dose: 100 mg Haloperidol (Haldol Injection (Fast Acting) -) 2 mg IM Q4H PRN PRN Reason: AGITATION Heparin Sodium (Porcine) (Heparin -) 1,000 unit IVPUSH PRN PRN PRN Reason: Heparin Last Admin: 02/21/17 17:35 Dose: 1,000 unit Heparin Sodium (Porcine) (Heparin -) 5,000 unit IVPUSH PRN PRN PRN Reason: Heparin Last Admin: 02/22/17 07:44 Dose: 5,000 unit Hydromorphone HCl (Dilaudid Injection -) 1 mg IVPB Q4H PRN PRN Reason: PAIN Last Admin: 02/17/17 22:22 Dose: 1 mg Heparin Sodium (Porcine) 25, (000 unit/ Sodium Chloride) 500 mls @ 20 mls/hr IV TITR [facility]; 1,000 UNIT/HR PRN Reason: Protocol Last Admin: 02/22/17 07:50 Dose: 55 mls/hr Cefazolin Sodium/Dextrose (Ancef 2 Gm Premixed Ivpb -) 50 mls @ 100 mls/hr IVPB Q8H-IV [facility] Last Admin: 02/22/17 12:08 Dose: 100 mls/hr Ertapenem 1 gm/ Sodium (Chloride) 50 mls @ 50 mls/hr IVPB DAILY [facility] PRN Reason: Protocol Last Admin: 02/22/17 10:00 Dose: 50 mls/hr Lidocaine (Lidoderm Patch -) 1 patch TP DAILY [facility] Last Admin: 02/22/17 10:03 Dose: 1 patch Metoprolol Tartrate (Lopressor Injection -) 5 mg IVPUSH Q4H PRN Last Admin: 02/16/17 05:48 Dose: 5 mg Metoprolol Tartrate (Lopressor -) 50 mg PO BID [facility] Last Admin: 02/22/17 10:01 Dose: 50 mg Miscellaneous (Lidoderm Patch Removal) 1 each MC DAILY@2200 [facility] Last Admin: 02/21/17 21:08 Dose: 1 each Montelukast Sodium (Singulair -) 10 mg PO HS [facility] Last Admin: 02/21/17 21:08 Dose: 10 mg Non-Formulary Medication (Fluticasone/Salmeterol [Advair Hfa 230-21 Mcg Inhaler] ) 1 inh PO BID [facility] Nystatin (Mycostatin Cream -) 1 applic TP BID [facility] Last Admin: 02/22/17 10:04 Dose: 1 applic Ondansetron HCl (Zofran Injection) 4 mg IVPB Q6H PRN PRN Reason: NAUSEA Oxycodone HCl (Roxicodone -) 5 mg PO Q4H PRN PRN Reason: PAIN Last Admin: 02/22/17 04:42 Dose: 5 mg Polyethylene Glycol (Miralax (For Daily Use) -) 17 gm PO BID [facility] Last Admin: 02/22/17 09:55 Dose: Not Given Valacyclovir HCl (Valtrex -) 1,000 mg PO BID [facility] Last Admin: 02/22/17 10:01 Dose: 1,000 mg - Objective Vital Signs: Vital Signs Temperature 99.1 F 02/22/17 14:15 Pulse Rate 92 H 02/22/17 14:37 Respiratory Rate 22 02/22/17 14:15 Blood Pressure 144/63 02/22/17 14:15 O2 Sat by Pulse Oximetry (%) 93 L 02/22/17 14:37 Constitutional: Yes: No Distress Cardiovascular: Yes: Regular Rate and Rhythm, S1, S2 Respiratory: Yes: CTA Bilaterally Gastrointestinal: Yes: Normal Bowel Sounds, Soft. 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
[2017-02-22] MEDS: AMINO ACIDS/PROTEIN HYDROLYS 30 ML LIQUID.PKT PO SCH (18:10)
[2017-02-22] MEDS: MONTELUKAST NA 10 MG TABLET PO SCH (21:23)
[2017-02-22] MEDS: LIDOCAINE PATCH REMOVAL MC SCH (21:23)
[2017-02-23] MEDS: ALBUTEROL SO4 2.5/IPRATROPIUM 0.5 INH SOL 3 ML VIAL.NEB. NEB SCH ×3 (01:00→22:11)
[2017-02-23] MEDS: CEFAZOLIN 2 GM/D5W 50 ML IVPB SCH ×3 (01:37→17:22)
[2017-02-23] MEDS: GABAPENTIN 100 MG CAPSULE (FP) PO SCH ×3 (05:12→22:25)
[2017-02-23 07:14] LABS: BASOPHIL 0.4 % (0-2.0); EOSINOPHIL 1.3 % (0-4.5); MCHC 33.4 g/dl (32.0-35.9); MEAN CELL VOLUME 101.6 fl (80-96); MEAN PLT VOLUME 9.4 fl (7.5-11.1); NEUTROPHILS 82.4 % (42.8-82.8); PLATELET COUNT 417 K/MM3 (134-434); RDW 14.3 % (11.9-15.9); WHITE BLOOD COUNT 15.7 K/mm3 (4.0-10.0)
[2017-02-23 07:44] LABS: CALCIUM 7.5 mg/dL (8.5-10.1); COCKROFT - GAULT 98.78; CREATININE 0.8 mg/dL (0.7-1.3)
--- NOTE | 2017-02-23 08:51 | PN ---
Progress Note (short form) - Note Progress Note: Very aware and alert today with improved WBC to 15,700 and less back pain. On IV Ancef and Ertapenem. Still temp to 100.6 overnite. Able to take some steps with PT sideways. Seen by ID, Neurosurgery and Foot Doctors. Tolerated diet better and protein supplement ordered. On Exam: Vital Signs Temp 89.0 F L 02/23/17 06:00 Pulse 79 02/23/17 06:00 Resp 20 02/23/17 06:00 BP 127/71 02/23/17 06:00 Pulse Ox 94 L 02/22/17 21:00 Intake & Output 02/22/17 02/22/17 02/23/17 11:59 23:59 11:59 Intake Total 1014 935 435 Output Total 450 500 Balance 564 435 435 Intake: IV 364 935 385 Lft Hand #22 02/21/17 364 935 385 IVPB 50 50 Oral 600 Output: Urine 450 500 Fragoso 450 500 Other: Voiding Method Indwelling Catheter Incontinent # Unmeasured Voids Void 1 2 Bowel Movement No Alert tongue slightly coated Chest: Few rhonchi at both bases Cor Reg Ext: Still some edema but less erythema dorsum left foot. Abnormal Lab Results 02/22/17 02/22/17 02/23/17 05:35 13:50 05:38 WBC 15.7 H RBC 2.90 L Hgb 9.9 L Hct 29.5 L MCV 101.6 H Neutrophils % 84.0 H Lymphocytes % 6.0 L PTT (Actin FS) 70.8 H D Chloride Calcium 02/23/17 02/23/17 05:38 05:38 WBC RBC Hgb Hct MCV Neutrophils % Lymphocytes % PTT (Actin FS) 123.7 H D Chloride 97 L Calcium 7.5 L IMP: Acute Osteomyelitis Acute Discitis L3-5 Epidural collection R/O abscess Hypertension Acute Sepsis Hypertension A. Fib to NSR Thrush Improved acute delirium Plan: Continue IV Antibiotics F/U Lab PT at bedside Problem List - Problems (1) Atrial fibrillation with rapid ventricular response Code(s): I48.91 - UNSPECIFIED ATRIAL FIBRILLATION (2) Back pain Code(s): M54.9 - DORSALGIA, UNSPECIFIED Qualifiers: Back pain location: low back pain Chronicity: acute Back pain laterality: bilateral Sciatica presence: without sciatica Qualified Code(s): M54.5 - Low back pain (3) Sepsis Code(s): A41.9 - SEPSIS, UNSPECIFIED ORGANISM (4) ALBERTO (acute kidney injury) Code(s): N17.9 - ACUTE KIDNEY FAILURE, UNSPECIFIED (5) Hypotension Code(s): I95.9 - HYPOTENSION, UNSPECIFIED Qualifiers: Hypotension type: unspecified hypotension type Qualified Code(s): I95.9 - Hypotension, unspecified (6) Lactic acidosis Code(s): E87.2 - ACIDOSIS (7) Sepsis associated hypotension Code(s): A41.9 - SEPSIS, UNSPECIFIED ORGANISM (8) AAA (abdominal aortic aneurysm) without rupture Code(s): I71.4 - ABDOMINAL AORTIC ANEURYSM, WITHOUT RUPTURE (9) Pain Code(s): R52 - PAIN, UNSPECIFIED (10) Foot pain, left Code(s): M79.672 - PAIN IN LEFT FOOT
--- NOTE | 2017-02-23 09:01 | PN ---
Progress Note, Physician Chief Complaint: ID Cefazolin Ertepenem day 2 Rx Looks much better today - Current Medication List Current Medications: Active Medications Acetaminophen (Tylenol -) 650 mg PO Q4H PRN PRN Reason: FEVER OR PAIN Last Admin: 02/22/17 04:44 Dose: 650 mg Acetaminophen (Tylenol -) 650 mg PO Q4H PRN PRN Reason: PAIN Last Admin: 02/22/17 20:21 Dose: 650 mg Albuterol Sulfate (Ventolin 0.083% Nebulizer Soln -) 1 amp NEB Q4H PRN PRN Reason: SHORT OF BREATH/WHEEZING Albuterol/Ipratropium (Duoneb -) 1 amp NEB TIDR [facility] Last Admin: 02/23/17 06:25 Dose: 1 amp Alprazolam (Xanax -) 0.25 mg PO Q6H PRN Last Admin: 02/20/17 20:51 Dose: 0.25 mg Amino Acids (Prosource No Carb Liquid Pkt) 30 ml PO BID@0800,1730 [facility] Last Admin: 02/22/17 18:10 Dose: 30 ml Bacitracin (Bacitracin -) 1 applic TP BID [facility] Last Admin: 02/22/17 21:22 Dose: 1 applic Diltiazem HCl (Cardizem Injection -) 10 mg IVPUSH Q4H PRN PRN Reason: TACHYCARDIA Last Admin: 02/13/17 12:13 Dose: 10 mg Diltiazem HCl (Cardizem Cd -) 180 mg PO DAILY [facility] Last Admin: 02/22/17 10:01 Dose: 180 mg Docusate Sodium (Colace -) 100 mg PO BID [facility] Last Admin: 02/22/17 21:21 Dose: Not Given Gabapentin (Neurontin -) 100 mg PO TID [facility] Last Admin: 02/23/17 05:12 Dose: 100 mg Haloperidol (Haldol Injection (Fast Acting) -) 2 mg IM Q4H PRN PRN Reason: AGITATION Heparin Sodium (Porcine) (Heparin -) 1,000 unit IVPUSH PRN PRN PRN Reason: Heparin Last Admin: 02/21/17 17:35 Dose: 1,000 unit Heparin Sodium (Porcine) (Heparin -) 5,000 unit IVPUSH PRN PRN PRN Reason: Heparin Last Admin: 02/22/17 07:44 Dose: 5,000 unit Hydromorphone HCl (Dilaudid Injection -) 1 mg IVPB Q4H PRN PRN Reason: PAIN Last Admin: 02/17/17 22:22 Dose: 1 mg Heparin Sodium (Porcine) 25, (000 unit/ Sodium Chloride) 500 mls @ 20 mls/hr IV TITR [facility]; 1,000 UNIT/HR PRN Reason: Protocol Last Admin: 02/22/17 07:50 Dose: 55 mls/hr Cefazolin Sodium/Dextrose (Ancef 2 Gm Premixed Ivpb -) 50 mls @ 100 mls/hr IVPB Q8H-IV [facility] Last Admin: 02/23/17 01:37 Dose: 100 mls/hr Ertapenem 1 gm/ Sodium (Chloride) 50 mls @ 50 mls/hr IVPB DAILY [facility] PRN Reason: Protocol Last Admin: 02/22/17 10:00 Dose: 50 mls/hr Lidocaine (Lidoderm Patch -) 1 patch TP DAILY [facility] Last Admin: 02/22/17 10:03 Dose: 1 patch Metoprolol Tartrate (Lopressor Injection -) 5 mg IVPUSH Q4H PRN Last Admin: 02/16/17 05:48 Dose: 5 mg Metoprolol Tartrate (Lopressor -) 50 mg PO BID [facility] Last Admin: 02/22/17 21:22 Dose: 50 mg Miscellaneous (Lidoderm Patch Removal) 1 each MC DAILY@2200 [facility] Last Admin: 02/22/17 21:23 Dose: 1 each Montelukast Sodium (Singulair -) 10 mg PO HS [facility] Last Admin: 02/22/17 21:23 Dose: 10 mg Non-Formulary Medication (Fluticasone/Salmeterol [Advair Hfa 230-21 Mcg Inhaler] ) 1 inh PO BID [facility] Nystatin (Mycostatin Cream -) 1 applic TP BID [facility] Last Admin: 02/22/17 21:22 Dose: 1 applic Ondansetron HCl (Zofran Injection) 4 mg IVPB Q6H PRN PRN Reason: NAUSEA Oxycodone HCl (Roxicodone -) 5 mg PO Q4H PRN PRN Reason: PAIN Last Admin: 02/22/17 21:38 Dose: 5 mg Polyethylene Glycol (Miralax (For Daily Use) -) 17 gm PO BID [facility] Last Admin: 02/22/17 21:21 Dose: Not Given Valacyclovir HCl (Valtrex -) 1,000 mg PO BID [facility] Last Admin: 02/22/17 21:22 Dose: 1,000 mg - Objective Vital Signs: Vital Signs Temperature 89.0 F L 02/23/17 06:00 Pulse Rate 79 02/23/17 06:00 Respiratory Rate 20 02/23/17 06:00 Blood Pressure 127/71 02/23/17 06:00 O2 Sat by Pulse Oximetry (%) 94 L 02/22/17 21:00 Constitutional: Yes: Well Nourished, No Distress HENT: Yes: WNL, Atraumatic Neck: Yes: WNL, Supple Cardiovascular: Yes: S1, S2 Respiratory: Yes: WNL, Regular, CTA Bilaterally Gastrointestinal: Yes: WNL, Normal Bowel Sounds, Soft Labs: CBC, BMP 02/23/17 05:38 02/23/17 05:38 INR, PTT INR 1.28 (0.82-1.09) H 02/15/17 06:00 Fibrinogen 668.0 mg/dL (238-498) H 02/15/17 06:00 Assessment/Plan Laboratory Tests 02/23/17 05:38 WBC 15.7 H Hgb 9.9 L Hct 29.5 L Plt Count 417 ASsessment MSSA bacteremia refractory with disciiitis and psoas abscesses Plan Nay be turning the corner for the better Check ESR and CRP Last positive blood culture 02/19 as of this notation Discussed with Dr Waleska Gentile MD
[2017-02-23] MEDS: HEPARIN - 25,000 UNIT in SODIUM CHLORIDE 495 ML IV SCH ×3 (09:35→18:54)
[2017-02-23] MEDS: BACITRACIN 30 GM TUBE TOPICAL OINTMENT TP SCH ×2 (09:38→22:26)
[2017-02-23] MEDS: AMINO ACIDS/PROTEIN HYDROLYS 30 ML LIQUID.PKT PO SCH ×2 (09:38→16:52)
[2017-02-23] MEDS: METOPROLOL TARTRATE 50 MG TABLET (FP) PO SCH ×2 (09:39→22:26)
[2017-02-23] MEDS: DOCUSATE SODIUM 100 MG CAPSULE (FP) PO SCH ×2 (09:39→22:25)
[2017-02-23] MEDS: LIDOCAINE 5% TOPICAL PATCH TP SCH (09:39)
[2017-02-23] MEDS: POLYETHYLENE GLYCOL 3350 119 GM BTL PO SCH ×2 (09:40→22:27)
[2017-02-23] MEDS: valACYclovir HCL 500 MG TABLET (FP) PO SCH ×2 (09:40→22:26)
[2017-02-23] MEDS: NYSTATIN 100,000 UNIT/GM TOPICAL CREAM 15 GM TUBE TP SCH ×2 (09:40→22:27)
[2017-02-23] MEDS: ERTAPENEM SODIUM 1 GM in SODIUM CHLORIDE 50 ML IVPB SCH (09:45)
--- NOTE | 2017-02-23 10:15 | PN ---
Progress Note (short form) - Note Progress Note: S: 77 year old male, with history of hypertension and aneurismal dilation of the ascending aorta, distal abdominal aorta, admitted with severe back pain associated with hypotension and parosyxmal atrial fibrillation. 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 Which extends to the psoas muscle on the left. Currently on intravenous antibiotics. Patient continues to have low grade fever. No recurrence of palpitations have been reported, no chest pain or discomfort, no history of shortness of breath. Patient has difficulty in ambulating. Active Medications Generic Name Dose Route Start Last Admin Trade Name Freq PRN Reason Stop Dose Admin Acetaminophen 650 mg 02/10/17 15:43 02/22/17 04:44 Tylenol - PO 650 mg Q4H PRN Administration FEVER OR PAIN Acetaminophen 650 mg 02/20/17 13:25 02/22/17 20:21 Tylenol - PO 650 mg Q4H PRN Administration PAIN Albuterol Sulfate 1 amp 02/17/17 16:46 Ventolin 0.083% Nebulizer Soln - NEB Q4H PRN SHORT OF BREATH/WHEEZING Albuterol/Ipratropium 1 amp 02/17/17 22:00 02/23/17 06:25 Duoneb - NEB 1 amp TIDR [facility] Administration Alprazolam 0.25 mg 02/13/17 02:25 02/20/17 20:51 Xanax - PO 0.25 mg Q6H PRN Administration Amino Acids 30 ml 02/22/17 17:30 02/23/17 09:38 Prosource No Carb Liquid Pkt PO 30 ml BID@0800,1730 [facility] Administration Bacitracin 1 applic 02/20/17 12:00 02/23/17 09:38 Bacitracin - TP 1 applic BID [facility] Administration Diltiazem HCl 10 mg 02/12/17 07:18 02/13/17 12:13 Cardizem Injection - IVPUSH 10 mg Q4H PRN Administration TACHYCARDIA Diltiazem HCl 180 mg 02/16/17 10:00 02/23/17 09:38 Cardizem Cd - PO 180 mg DAILY [facility] Administration Docusate Sodium 100 mg 02/10/17 22:00 02/23/17 09:39 Colace - PO Not Given BID [facility] Gabapentin 100 mg 02/11/17 08:00 02/23/17 05:12 Neurontin - PO 100 mg TID [facility] Administration Haloperidol 2 mg 02/17/17 08:22 Haldol Injection (Fast Acting) - IM Q4H PRN AGITATION Heparin Sodium (Porcine) 1,000 unit 02/12/17 06:55 02/21/17 17:35 Heparin - IVPUSH 1,000 unit PRN PRN Administration Heparin Heparin Sodium (Porcine) 5,000 unit 02/12/17 06:55 02/22/17 07:44 Heparin - IVPUSH 5,000 unit PRN PRN Administration Heparin Hydromorphone HCl 1 mg 02/10/17 15:43 02/17/17 22:22 Dilaudid Injection - IVPB 1 mg Q4H PRN Administration PAIN Heparin Sodium (Porcine) 25, 500 mls @ 20 mls/hr 02/12/17 07:00 02/23/17 09:35 000 unit/ Sodium Chloride IV 52 mls/hr TITR [facility] Administration Protocol 1,000 UNIT/HR Cefazolin Sodium/Dextrose 50 mls @ 100 mls/hr 02/12/17 10:00 02/23/17 09:45 Ancef 2 Gm Premixed Ivpb - IVPB 100 mls/hr Q8H-IV [facility] Administration Ertapenem 1 gm/ Sodium 50 mls @ 50 mls/hr 02/21/17 12:00 02/23/17 09:45 Chloride IVPB 50 mls/hr DAILY [facility] Administration Protocol Lidocaine 1 patch 02/11/17 10:00 02/23/17 09:39 Lidoderm Patch - TP 1 patch DAILY [facility] Administration Metoprolol Tartrate 5 mg 02/12/17 23:16 02/16/17 05:48 Lopressor Injection - IVPUSH 5 mg Q4H PRN Administration Metoprolol Tartrate 50 mg 02/14/17 22:00 02/23/17 09:39 Lopressor - PO 50 mg BID [facility] Administration Miscellaneous 1 each 02/11/17 22:00 02/22/17 21:23 Lidoderm Patch Removal MC 1 each DAILY@2200 [facility] Administration Montelukast Sodium 10 mg 02/10/17 22:00 02/22/17 21:23 Singulair - PO 10 mg HS [facility] Administration Non-Formulary Medication 1 inh 02/10/17 22:00 Fluticasone/Salmeterol [Advair Hfa 230-21 Mcg Inhaler] PO BID [facility] Nystatin 1 applic 02/19/17 23:00 02/23/17 09:40 Mycostatin Cream - TP 1 applic BID [facility] Administration Ondansetron HCl 4 mg 02/10/17 15:43 Zofran Injection IVPB Q6H PRN NAUSEA Oxycodone HCl 5 mg 02/10/17 15:43 02/22/17 21:38 Roxicodone - PO 5 mg Q4H PRN Administration PAIN Polyethylene Glycol 17 gm 02/14/17 22:00 02/23/17 09:40 Miralax (For Daily Use) - PO Not Given BID [facility] Valacyclovir HCl 1,000 mg 02/16/17 11:00 02/23/17 09:40 Valtrex - PO 1,000 mg BID [facility] Administration O: 77 year old male was in no acute distress, no pallor, cyanosis, clubbing, or jaundice. Last Vital Signs Temp Pulse Resp BP Pulse Ox 89.0 F L 79 20 127/71 94 L 02/23/17 06:00 02/23/17 06:00 02/23/17 06:00 02/23/17 06:00 02/22/17 21:00 Neck: Supple, no JVD, negative HJR, carotids were equal and upstrokes were normal, no thyromegaly appreciated. Heart: PMI was in the 5th intercostal space, no heaves or thrills, S1 and S2 were normal. No murmurs or gallops were appreciated. Lungs: Clear on auscultation bilaterally. Abdomen: Soft, obese and nontender, no hepatosplenomegaly appreciated, and no palpable masses were felt. Extremities: No calf tenderness or dependent edema. Pulses are normal. CBC, BMP 02/23/17 05:38 02/23/17 05:38 Laboratory Results - last 24 hr 02/22/17 02/23/17 02/23/17 13:50 05:38 05:38 WBC 15.7 H RBC 2.90 L Hgb 9.9 L Hct 29.5 L MCV 101.6 H MCHC 33.4 RDW 14.3 Plt Count 417 MPV 9.4 Neutrophils % 82.4 Lymphocytes % 8.1 D Monocytes % 7.8 Eosinophils % 1.3 D Basophils % 0.4 PTT (Actin FS) 70.8 H D Sodium 136 Potassium 3.5 Chloride 97 L Carbon Dioxide 31 Anion Gap 8 BUN 16 Creatinine 0.8 Random Glucose 86 Calcium 7.5 L 02/23/17 05:38 WBC RBC Hgb Hct MCV MCHC RDW Plt Count MPV Neutrophils % Lymphocytes % Monocytes % Eosinophils % Basophils % PTT (Actin FS) 123.7 H D Sodium Potassium Chloride Carbon Dioxide Anion Gap BUN Creatinine Random Glucose Calcium Impression: (1) Atrial fibrillation with rapid ventricular response Code(s): I48.91 - UNSPECIFIED ATRIAL FIBRILLATION (2) MSSA (methicillin susceptible Staphylococcus aureus) septicemia Code(s): A41.01 - SEPSIS DUE TO METHICILLIN SUSCEPTIBLE STAPHYLOCOCCUS AUREUS (3) Osteomyolitis of the lumbar spine Code(s): M86.9 - OSTEOMYELITIS, UNSPECIFIED (3) 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 Close neurological follow up and evaluation. 2. Close follow up of PTT especially as patient has epidural (abscess) involvement. Prognosis: Critical Attestation: Documentation prepared by Braulio Vance, acting as medical assisting instructor for Mack Noland MD.
[2017-02-23] MEDS ORDERED: FUROSEMIDE 20 MG TABLET (FP) PO ONE (10:57)
--- NOTE | 2017-02-23 10:57 | PN ---
Progress Note, Physician History of Present Illness: Pt seen and examined at bedside. He is awake and alert. - Current Medication List Current Medications: Active Medications Acetaminophen (Tylenol -) 650 mg PO Q4H PRN PRN Reason: FEVER OR PAIN Last Admin: 02/22/17 04:44 Dose: 650 mg Acetaminophen (Tylenol -) 650 mg PO Q4H PRN PRN Reason: PAIN Last Admin: 02/22/17 20:21 Dose: 650 mg Albuterol Sulfate (Ventolin 0.083% Nebulizer Soln -) 1 amp NEB Q4H PRN PRN Reason: SHORT OF BREATH/WHEEZING Albuterol/Ipratropium (Duoneb -) 1 amp NEB TIDR [facility] Last Admin: 02/23/17 06:25 Dose: 1 amp Alprazolam (Xanax -) 0.25 mg PO Q6H PRN Last Admin: 02/20/17 20:51 Dose: 0.25 mg Amino Acids (Prosource No Carb Liquid Pkt) 30 ml PO BID@0800,1730 [facility] Last Admin: 02/23/17 09:38 Dose: 30 ml Bacitracin (Bacitracin -) 1 applic TP BID [facility] Last Admin: 02/23/17 09:38 Dose: 1 applic Diltiazem HCl (Cardizem Injection -) 10 mg IVPUSH Q4H PRN PRN Reason: TACHYCARDIA Last Admin: 02/13/17 12:13 Dose: 10 mg Diltiazem HCl (Cardizem Cd -) 180 mg PO DAILY [facility] Last Admin: 02/23/17 09:38 Dose: 180 mg Docusate Sodium (Colace -) 100 mg PO BID [facility] Last Admin: 02/23/17 09:39 Dose: Not Given Gabapentin (Neurontin -) 100 mg PO TID [facility] Last Admin: 02/23/17 05:12 Dose: 100 mg Haloperidol (Haldol Injection (Fast Acting) -) 2 mg IM Q4H PRN PRN Reason: AGITATION Heparin Sodium (Porcine) (Heparin -) 1,000 unit IVPUSH PRN PRN PRN Reason: Heparin Last Admin: 02/21/17 17:35 Dose: 1,000 unit Heparin Sodium (Porcine) (Heparin -) 5,000 unit IVPUSH PRN PRN PRN Reason: Heparin Last Admin: 02/22/17 07:44 Dose: 5,000 unit Hydromorphone HCl (Dilaudid Injection -) 1 mg IVPB Q4H PRN PRN Reason: PAIN Last Admin: 02/17/17 22:22 Dose: 1 mg Heparin Sodium (Porcine) 25, (000 unit/ Sodium Chloride) 500 mls @ 20 mls/hr IV TITR [facility]; 1,000 UNIT/HR PRN Reason: Protocol Last Admin: 02/23/17 09:35 Dose: 52 mls/hr Cefazolin Sodium/Dextrose (Ancef 2 Gm Premixed Ivpb -) 50 mls @ 100 mls/hr IVPB Q8H-IV [facility] Last Admin: 02/23/17 09:45 Dose: 100 mls/hr Ertapenem 1 gm/ Sodium (Chloride) 50 mls @ 50 mls/hr IVPB DAILY [facility] PRN Reason: Protocol Last Admin: 02/23/17 09:45 Dose: 50 mls/hr Lidocaine (Lidoderm Patch -) 1 patch TP DAILY [facility] Last Admin: 02/23/17 09:39 Dose: 1 patch Metoprolol Tartrate (Lopressor Injection -) 5 mg IVPUSH Q4H PRN Last Admin: 02/16/17 05:48 Dose: 5 mg Metoprolol Tartrate (Lopressor -) 50 mg PO BID [facility] Last Admin: 02/23/17 09:39 Dose: 50 mg Miscellaneous (Lidoderm Patch Removal) 1 each MC DAILY@2200 [facility] Last Admin: 02/22/17 21:23 Dose: 1 each Montelukast Sodium (Singulair -) 10 mg PO HS [facility] Last Admin: 02/22/17 21:23 Dose: 10 mg Non-Formulary Medication (Fluticasone/Salmeterol [Advair Hfa 230-21 Mcg Inhaler] ) 1 inh PO BID [facility] Nystatin (Mycostatin Cream -) 1 applic TP BID [facility] Last Admin: 02/23/17 09:40 Dose: 1 applic Ondansetron HCl (Zofran Injection) 4 mg IVPB Q6H PRN PRN Reason: NAUSEA Oxycodone HCl (Roxicodone -) 5 mg PO Q4H PRN PRN Reason: PAIN Last Admin: 02/22/17 21:38 Dose: 5 mg Polyethylene Glycol (Miralax (For Daily Use) -) 17 gm PO BID [facility] Last Admin: 02/23/17 09:40 Dose: Not Given Valacyclovir HCl (Valtrex -) 1,000 mg PO BID [facility] Last Admin: 02/23/17 09:40 Dose: 1,000 mg - Objective Vital Signs: Vital Signs Temperature 89.0 F L 02/23/17 06:00 Pulse Rate 79 02/23/17 06:00 Respiratory Rate 20 02/23/17 06:00 Blood Pressure 127/71 02/23/17 06:00 O2 Sat by Pulse Oximetry (%) 94 L 02/22/17 21:00 Constitutional: Yes: Calm Eyes: Yes: Conjunctiva Clear HENT: Yes: Atraumatic Neck: Yes: Supple Cardiovascular: Yes: S1, S2 Respiratory: Yes: Diminished, On Nasal O2 Gastrointestinal: Yes: Soft, Abdomen, Obese Genitourinary: Yes: Incontinence Musculoskeletal: Yes: Muscle Weakness Edema: Yes Edema: LLE: Trace, RLE: Trace Neurological: Yes: Oriented Psychiatric: Yes: Oriented Labs: CBC, BMP 02/23/17 05:38 02/23/17 05:38 INR, PTT INR 1.28 (0.82-1.09) H 02/15/17 06:00 Fibrinogen 668.0 mg/dL (238-498) H 02/15/17 06:00 Problem List - Problems (1) Back pain Code(s): M54.9 - DORSALGIA, UNSPECIFIED Qualifiers: Qualified Code(s): M54.5 - Low back pain (2) Hypotension Code(s): I95.9 - HYPOTENSION, UNSPECIFIED Qualifiers: Qualified Code(s): I95.9 - Hypotension, unspecified (3) ALBERTO (acute kidney injury) Code(s): N17.9 - ACUTE KIDNEY FAILURE, UNSPECIFIED Assessment/Plan Current Medications Generic Name Dose Route Start Last Admin Trade Name Freq PRN Reason Stop Dose Admin Acetaminophen 650 mg 02/10/17 15:43 02/22/17 04:44 Tylenol - PO 650 mg Q4H PRN Administration FEVER OR PAIN Acetaminophen 650 mg 02/20/17 13:25 02/22/17 20:21 Tylenol - PO 650 mg Q4H PRN Administration PAIN Albuterol Sulfate 1 amp 02/17/17 16:46 Ventolin 0.083% Nebulizer Soln - NEB Q4H PRN SHORT OF BREATH/WHEEZING Albuterol/Ipratropium 1 amp 02/17/17 22:00 02/23/17 06:25 Duoneb - NEB 1 amp TIDR [facility] Administration Alprazolam 0.25 mg 02/13/17 02:25 02/20/17 20:51 Xanax - PO 0.25 mg Q6H PRN Administration Amino Acids 30 ml 02/22/17 17:30 02/23/17 09:38 Prosource No Carb Liquid Pkt PO 30 ml BID@0800,1730 [facility] Administration Bacitracin 1 applic 02/20/17 12:00 02/23/17 09:38 Bacitracin - TP 1 applic BID [facility] Administration Diltiazem HCl 10 mg 02/12/17 07:18 02/13/17 12:13 Cardizem Injection - IVPUSH 10 mg Q4H PRN Administration TACHYCARDIA Diltiazem HCl 180 mg 02/16/17 10:00 02/23/17 09:38 Cardizem Cd - PO 180 mg DAILY [facility] Administration Docusate Sodium 100 mg 02/10/17 22:00 02/23/17 09:39 Colace - PO Not Given BID [facility] Gabapentin 100 mg 02/11/17 08:00 02/23/17 05:12 Neurontin - PO 100 mg TID [facility] Administration Haloperidol 2 mg 02/17/17 08:22 Haldol Injection (Fast Acting) - IM Q4H PRN AGITATION Heparin Sodium (Porcine) 1,000 unit 02/12/17 06:55 02/21/17 17:35 Heparin - IVPUSH 1,000 unit PRN PRN Administration Heparin Heparin Sodium (Porcine) 5,000 unit 02/12/17 06:55 02/22/17 07:44 Heparin - IVPUSH 5,000 unit PRN PRN Administration Heparin Hydromorphone HCl 1 mg 02/10/17 15:43 02/17/17 22:22 Dilaudid Injection - IVPB 1 mg Q4H PRN Administration PAIN Heparin Sodium (Porcine) 25, 500 mls @ 20 mls/hr 02/12/17 07:00 02/23/17 09:35 000 unit/ Sodium Chloride IV 52 mls/hr TITR [facility] Administration Protocol 1,000 UNIT/HR Cefazolin Sodium/Dextrose 50 mls @ 100 mls/hr 02/12/17 10:00 02/23/17 09:45 Ancef 2 Gm Premixed Ivpb - IVPB 100 mls/hr Q8H-IV [facility] Administration Ertapenem 1 gm/ Sodium 50 mls @ 50 mls/hr 02/21/17 12:00 02/23/17 09:45 Chloride IVPB 50 mls/hr DAILY [facility] Administration Protocol Lidocaine 1 patch 02/11/17 10:00 02/23/17 09:39 Lidoderm Patch - TP 1 patch DAILY [facility] Administration Metoprolol Tartrate 5 mg 02/12/17 23:16 02/16/17 05:48 Lopressor Injection - IVPUSH 5 mg Q4H PRN Administration Metoprolol Tartrate 50 mg 02/14/17 22:00 02/23/17 09:39 Lopressor - PO 50 mg BID [facility] Administration Miscellaneous 1 each 02/11/17 22:00 02/22/17 21:23 Lidoderm Patch Removal MC 1 each DAILY@2200 [facility] Administration Montelukast Sodium 10 mg 02/10/17 22:00 02/22/17 21:23 Singulair - PO 10 mg HS [facility] Administration Non-Formulary Medication 1 inh 02/10/17 22:00 Fluticasone/Salmeterol [Advair Hfa 230-21 Mcg Inhaler] PO BID [facility] Nystatin 1 applic 02/19/17 23:00 02/23/17 09:40 Mycostatin Cream - TP 1 applic BID [facility] Administration Ondansetron HCl 4 mg 02/10/17 15:43 Zofran Injection IVPB Q6H PRN NAUSEA Oxycodone HCl 5 mg 02/10/17 15:43 02/22/17 21:38 Roxicodone - PO 5 mg Q4H PRN Administration PAIN Polyethylene Glycol 17 gm 02/14/17 22:00 02/23/17 09:40 Miralax (For Daily Use) - PO Not Given BID [facility] Valacyclovir HCl 1,000 mg 02/16/17 11:00 02/23/17 09:40 Valtrex - PO 1,000 mg BID [facility] Administration Impression 1. ALBERTO 2. lactic acidosis 3. hypotension 4. hx of HTN 5. asthma 6. back pain 7. r/o dissection 8. sepsis 9. bacteremia 10. PFO 11. hypernatremia - resolving Plan - renal function is stabilizing - will give a dose of lasix - will supplement potassium as it is on the low side - ID follow up - follow up cxr report - monitor pulse ox Dr Traore
[2017-02-23] MEDS ORDERED: POTASSIUM CHLORIDE TABS 20 MEQ TABLET.ER (FP) PO ONE (12:00)
[2017-02-23 12:35] LABS: ERYTHROCYTE SEDIMENTATION RATE 126 mm/hr (0-20)
[2017-02-23] MEDS ORDERED: PT OWN MED DRAWER 7, Y5N ONE (16:48)
[2017-02-23] MEDS: LIDOCAINE PATCH REMOVAL MC SCH (22:00)
[2017-02-23] MEDS: ALPRAZolam 0.25 MG TABLET PO PRN (22:25)
[2017-02-23] MEDS: MONTELUKAST NA 10 MG TABLET PO SCH (22:26)
[2017-02-23] MEDS: ACETAMINOPHEN 325 MG TABLET (FP) PO PRN (22:26)
[2017-02-24] MEDS ORDERED: PT OWN MED DRAWER 7, Y5N ONE ×4 (01:07→18:54)
[2017-02-24] MEDS: CEFAZOLIN 2 GM/D5W 50 ML IVPB SCH ×3 (01:28→17:01)
[2017-02-24] MEDS: GABAPENTIN 100 MG CAPSULE (FP) PO SCH ×3 (06:21→22:29)
[2017-02-24] MEDS: ALBUTEROL SO4 2.5/IPRATROPIUM 0.5 INH SOL 3 ML VIAL.NEB. NEB SCH ×3 (06:26→22:00)
[2017-02-24] MEDS: HEPARIN - 25,000 UNIT in SODIUM CHLORIDE 495 ML IV SCH ×2 (06:29→14:34)
[2017-02-24 07:22] LABS: MCH 33.6 pg (25.7-33.7); MCHC 33.1 g/dl (32.0-35.9); MEAN CELL VOLUME 101.5 fl (80-96); MEAN PLT VOLUME 8.7 fl (7.5-11.1); PLATELET COUNT 492 K/MM3 (134-434); RDW 14.2 % (11.9-15.9); WHITE BLOOD COUNT 12.8 K/mm3 (4.0-10.0)
[2017-02-24 07:41] LABS: CALCIUM 7.9 mg/dL (8.5-10.1)
[2017-02-24 07:45] LABS: COCKROFT - GAULT 112.9; CREATININE 0.7 mg/dL (0.7-1.3)
--- NOTE | 2017-02-24 08:52 | PN ---
Progress Note (short form) - Note Progress Note: Patient woke up with some confusion this AM and wasn't aware he was in the hospital. Now more alert and clearheaded. Not complaining as much about back or left foot pain. WBC lower to 12,800 and All blood C/S since 02/19/17 are negative to this point but he still has low grade temps and sed was higher at 125 yesterday. On Exam: Vital Signs Temp 98.6 F 02/24/17 06:00 Pulse 89 02/24/17 06:00 Resp 18 02/24/17 08:32 BP 152/87 02/24/17 06:00 Pulse Ox 96 02/24/17 08:32 Intake & Output 02/23/17 02/23/17 02/24/17 11:59 23:59 11:59 Intake Total 435 554 408 Output Total 450 Balance 435 554 -42 Intake: IV 385 204 408 Lft Hand #22 02/21/17 385 LFA #22 02/22/17 204 408 IVPB 50 100 Oral 250 Output: Urine 450 Fragoso 450 Other: Voiding Method Incontinent Diaper Diaper # Unmeasured Voids Void 2 Fragoso 2 Bowel Movement Yes Yes: 3 # Bowel Movements 1 3 Alert slightly confused Tongue dry but not coated today. Chest:Decreased breath sounds and some rhonchi Cor Reg Abd: slightly distended but non tender Ext; No edema and less erythema left foot Abnormal Lab Results 02/23/17 02/23/17 02/24/17 05:38 16:30 05:35 WBC 12.8 H RBC 2.97 L Hgb 10.0 L Hct 30.2 L MCV 101.5 H Plt Count 492 H ESR 126 H PTT (Actin FS) 80.9 H D Chloride Calcium 02/24/17 02/24/17 05:35 05:35 WBC RBC Hgb Hct MCV Plt Count ESR PTT (Actin FS) 73.5 H Chloride 97 L Calcium 7.9 L IMP: Acute septicemia Acute Discitis LS spine Acute Osteomyelitis L3-5 A. Fib to NSR Delirium acute Epidural collection/abscess Hypertension Plan: Continue both IV antibiotics F/U Lab F/U ID Saliva Substiute PT to continue Problem List - Problems (1) Atrial fibrillation with rapid ventricular response Code(s): I48.91 - UNSPECIFIED ATRIAL FIBRILLATION (2) Back pain Code(s): M54.9 - DORSALGIA, UNSPECIFIED Qualifiers: Back pain location: low back pain Chronicity: acute Back pain laterality: bilateral Sciatica presence: without sciatica Qualified Code(s): M54.5 - Low back pain (3) Sepsis Code(s): A41.9 - SEPSIS, UNSPECIFIED ORGANISM (4) ALBERTO (acute kidney injury) Code(s): N17.9 - ACUTE KIDNEY FAILURE, UNSPECIFIED (5) Hypotension Code(s): I95.9 - HYPOTENSION, UNSPECIFIED Qualifiers: Hypotension type: unspecified hypotension type Qualified Code(s): I95.9 - Hypotension, unspecified (6) Lactic acidosis Code(s): E87.2 - ACIDOSIS (7) Sepsis associated hypotension Code(s): A41.9 - SEPSIS, UNSPECIFIED ORGANISM (8) AAA (abdominal aortic aneurysm) without rupture Code(s): I71.4 - ABDOMINAL AORTIC ANEURYSM, WITHOUT RUPTURE (9) Pain Code(s): R52 - PAIN, UNSPECIFIED (10) Foot pain, left Code(s): M79.672 - PAIN IN LEFT FOOT
[2017-02-24 09:03] LABS: PLATELET ESTIMATE ADEQUATE (NORMAL)
[2017-02-24] MEDS: AMINO ACIDS/PROTEIN HYDROLYS 30 ML LIQUID.PKT PO SCH ×2 (09:22→17:01)
[2017-02-24] MEDS: NYSTATIN 100,000 UNIT/GM TOPICAL CREAM 15 GM TUBE TP SCH ×2 (09:22→22:39)
[2017-02-24] MEDS: valACYclovir HCL 500 MG TABLET (FP) PO SCH ×2 (09:22→22:29)
[2017-02-24] MEDS: METOPROLOL TARTRATE 50 MG TABLET (FP) PO SCH ×2 (09:23→22:28)
[2017-02-24] MEDS: LIDOCAINE 5% TOPICAL PATCH TP SCH (09:23)
[2017-02-24] MEDS: DOCUSATE SODIUM 100 MG CAPSULE (FP) PO SCH ×2 (09:23→22:29)
[2017-02-24] MEDS: BACITRACIN 30 GM TUBE TOPICAL OINTMENT TP SCH ×2 (09:23→22:29)
[2017-02-24] MEDS: ERTAPENEM SODIUM 1 GM in SODIUM CHLORIDE 50 ML IVPB SCH (09:48)
[2017-02-24] MEDS: POLYETHYLENE GLYCOL 3350 119 GM BTL PO SCH ×2 (09:49→22:29)
--- NOTE | 2017-02-24 10:12 | PN ---
Progress Note, Physician History of Present Illness: Low grade fevers, MSSA bacteremia has cleared, LBP and left foot pain improved. Remains in SR. - Current Medication List Current Medications: Active Medications Acetaminophen (Tylenol -) 650 mg PO Q4H PRN PRN Reason: FEVER OR PAIN Last Admin: 02/23/17 22:26 Dose: 650 mg Acetaminophen (Tylenol -) 650 mg PO Q4H PRN PRN Reason: PAIN Last Admin: 02/22/17 20:21 Dose: 650 mg Albuterol Sulfate (Ventolin 0.083% Nebulizer Soln -) 1 amp NEB Q4H PRN PRN Reason: SHORT OF BREATH/WHEEZING Last Admin: 02/23/17 17:17 Dose: 1 amp Albuterol/Ipratropium (Duoneb -) 1 amp NEB TIDR [facility] Last Admin: 02/24/17 06:26 Dose: 1 amp Alprazolam (Xanax -) 0.25 mg PO Q6H PRN Last Admin: 02/23/17 22:25 Dose: 0.25 mg Amino Acids (Prosource No Carb Liquid Pkt) 30 ml PO BID@0800,1730 [facility] Last Admin: 02/24/17 09:22 Dose: 30 ml Bacitracin (Bacitracin -) 1 applic TP BID [facility] Last Admin: 02/24/17 09:23 Dose: 1 applic Diltiazem HCl (Cardizem Injection -) 10 mg IVPUSH Q4H PRN PRN Reason: TACHYCARDIA Last Admin: 02/13/17 12:13 Dose: 10 mg Diltiazem HCl (Cardizem Cd -) 180 mg PO DAILY [facility] Last Admin: 02/24/17 09:22 Dose: 180 mg Docusate Sodium (Colace -) 100 mg PO BID [facility] Last Admin: 02/24/17 09:23 Dose: 100 mg Gabapentin (Neurontin -) 100 mg PO TID [facility] Last Admin: 02/24/17 06:21 Dose: 100 mg Haloperidol (Haldol Injection (Fast Acting) -) 2 mg IM Q4H PRN PRN Reason: AGITATION Heparin Sodium (Porcine) (Heparin -) 1,000 unit IVPUSH PRN PRN PRN Reason: Heparin Last Admin: 02/21/17 17:35 Dose: 1,000 unit Heparin Sodium (Porcine) (Heparin -) 5,000 unit IVPUSH PRN PRN PRN Reason: Heparin Last Admin: 02/22/17 07:44 Dose: 5,000 unit Hydromorphone HCl (Dilaudid Injection -) 1 mg IVPB Q4H PRN PRN Reason: PAIN Last Admin: 02/17/17 22:22 Dose: 1 mg Heparin Sodium (Porcine) 25, (000 unit/ Sodium Chloride) 500 mls @ 20 mls/hr IV TITR [facility]; 1,000 UNIT/HR PRN Reason: Protocol Last Titration: 02/24/17 09:27 Dose: 2,550 unit/hr Cefazolin Sodium/Dextrose (Ancef 2 Gm Premixed Ivpb -) 50 mls @ 100 mls/hr IVPB Q8H-IV [facility] Last Admin: 02/24/17 09:48 Dose: 100 mls/hr Ertapenem 1 gm/ Sodium (Chloride) 50 mls @ 50 mls/hr IVPB DAILY [facility] PRN Reason: Protocol Last Admin: 02/24/17 09:48 Dose: 50 mls/hr Lidocaine (Lidoderm Patch -) 1 patch TP DAILY [facility] Last Admin: 02/24/17 09:23 Dose: 1 patch Metoprolol Tartrate (Lopressor Injection -) 5 mg IVPUSH Q4H PRN Last Admin: 02/16/17 05:48 Dose: 5 mg Metoprolol Tartrate (Lopressor -) 50 mg PO BID [facility] Last Admin: 02/24/17 09:23 Dose: 50 mg Miscellaneous (Lidoderm Patch Removal) 1 each MC DAILY@2200 [facility] Last Admin: 02/23/17 22:00 Dose: 1 each Montelukast Sodium (Singulair -) 10 mg PO HS [facility] Last Admin: 02/23/17 22:26 Dose: 10 mg Non-Formulary Medication (Fluticasone/Salmeterol [Advair Hfa 230-21 Mcg Inhaler] ) 1 inh PO BID [facility] Nystatin (Mycostatin Cream -) 1 applic TP BID [facility] Last Admin: 02/24/17 09:22 Dose: 1 applic Ondansetron HCl (Zofran Injection) 4 mg IVPB Q6H PRN PRN Reason: NAUSEA Oxycodone HCl (Roxicodone -) 5 mg PO Q4H PRN PRN Reason: PAIN Last Admin: 02/22/17 21:38 Dose: 5 mg Polyethylene Glycol (Miralax (For Daily Use) -) 17 gm PO BID [facility] Last Admin: 02/24/17 09:49 Dose: 17 gm Saliva Substitute (Mouthkote Solution -) 1 applic MM DAILY [facility] Valacyclovir HCl (Valtrex -) 1,000 mg PO BID [facility] Last Admin: 02/24/17 09:22 Dose: 1,000 mg - Objective Vital Signs: Vital Signs Temperature 98.6 F 02/24/17 06:00 Pulse Rate 89 02/24/17 06:00 Respiratory Rate 18 02/24/17 08:32 Blood Pressure 152/87 02/24/17 06:00 O2 Sat by Pulse Oximetry (%) 96 02/24/17 08:32 Constitutional: Yes: No Distress, Calm Neck: Yes: Supple Cardiovascular: Yes: Regular Rate and Rhythm Respiratory: Yes: Regular, Diminished Gastrointestinal: Yes: Normal Bowel Sounds, Soft Edema: No Labs: CBC, BMP 02/24/17 05:35 02/24/17 05:35 INR, PTT INR 1.28 (0.82-1.09) H 02/15/17 06:00 Fibrinogen 668.0 mg/dL (238-498) H 02/15/17 06:00 Problem List - Problems (1) MSSA (methicillin susceptible Staphylococcus aureus) septicemia Code(s): A41.01 - SEPSIS DUE TO METHICILLIN SUSCEPTIBLE STAPHYLOCOCCUS AUREUS (2) Paroxysmal atrial fibrillation with RVR Code(s): I48.0 - PAROXYSMAL ATRIAL FIBRILLATION (3) Back pain Code(s): M54.9 - DORSALGIA, UNSPECIFIED Qualifiers: Back pain location: low back pain Chronicity: acute Back pain laterality: bilateral Sciatica presence: without sciatica Qualified Code(s): M54.5 - Low back pain (4) Thoracic aortic aneurysm without rupture Code(s): I71.2 - THORACIC AORTIC ANEURYSM, WITHOUT RUPTURE (5) Toxic metabolic encephalopathy Code(s): G92 - TOXIC ENCEPHALOPATHY (6) Osteomyelitis Code(s): M86.9 - OSTEOMYELITIS, UNSPECIFIED Qualifiers: Osteomyelitis type: acute hematogenous Osteomyelitis location: unspecified site Qualified Code(s): M86.00 - Acute hematogenous osteomyelitis, unspecified site (7) Epidural abscess Code(s): G06.2 - EXTRADURAL AND SUBDURAL ABSCESS, UNSPECIFIED (8) Septic discitis of lumbosacral region Code(s): M46.46 - DISCITIS, UNSPECIFIED, LUMBAR REGION Assessment/Plan 1. Improving MSSA bacteremia - septic discitis, osteomyelitis and epidural abscess lumbar spine with improving WBC 2. Paroxysmal atrial fibrillation [id number] of 2 with possible left foot thrombo-embolism vs septic emboli, PTT therapeutic 3. Acute on chronic exacerbation of diastolic failure, improved 4. Thoracic aortic aneurysm 5. Toxic metabolic encephalopathy, resolved 6. ALBERTO and lactic acidosis, resolved 7. Thrombocytopenia due to sepsis, resolved 8. Acute on chronic diastolic failure improved PLAN: 1. Continue Cardizem CD 180 qd, hemodynamics permitting 2. Continue Lopressor 50 bid, hemodynamics permitting 3. Continue Heparin drip and if no intervention is planned recommend initiating NOAC's, considering patient has already had an embolic event ([id number] score is probably 4) 4. Ancef/ertapanem course as per the primary/ID teams
[2017-02-24 11:14] LABS: ERYTHROCYTE SEDIMENTATION RATE > 130 mm/hr (0-20)
--- NOTE | 2017-02-24 12:27 | PN ---
Progress Note (short form) - Note Progress Note: NEUROSURGERY Pain "A lot better" More awake at bedside PE: Tmax 100.5, VSS HEENT- NC/AT; Neck- supple; Cor- RR; Lungs- no wheezes; Abd- obese, benign; Ext - No sign of DVT except mild chronic B edema CN- intact; Motor- 4+/5 B UE/LE except L IP/Quad/EHL/TA/gastroc/inv/ev 4- pain; Sensation- diminished LT L L4-5 WBC 12.8 MSSA on blood culture + 1/2 from 02/14; 02-16 specimen + 1/2 MSSA; 6-3 cultures 1 /2 + Blood culture 6-5 and 6-6 no growth as yet L4-5 spondylolisthesis with stenosis and mechanical LBP and L L4-5 radiculopathy L4-5 discitis/osteomyelitis with anterior epidural soft tissue infection Clinically improved, though with low grade temp On combination iv abx tx (inc ertepenem) per ID Care and pt progress d/w Dr Gentile yesterday, including tx to tertiary institution if persistent bacteremia
--- NOTE | 2017-02-24 13:10 | PN ---
Progress Note, Physician History of Present Illness: Awake but lethargic No c/o back pain at rest in bed Low grade temps WBC improved - Current Medication List Current Medications: Active Medications Acetaminophen (Tylenol -) 650 mg PO Q4H PRN PRN Reason: FEVER OR PAIN Last Admin: 02/23/17 22:26 Dose: 650 mg Acetaminophen (Tylenol -) 650 mg PO Q4H PRN PRN Reason: PAIN Last Admin: 02/22/17 20:21 Dose: 650 mg Albuterol Sulfate (Ventolin 0.083% Nebulizer Soln -) 1 amp NEB Q4H PRN PRN Reason: SHORT OF BREATH/WHEEZING Last Admin: 02/23/17 17:17 Dose: 1 amp Albuterol/Ipratropium (Duoneb -) 1 amp NEB TIDR [facility] Last Admin: 02/24/17 06:26 Dose: 1 amp Alprazolam (Xanax -) 0.25 mg PO Q6H PRN Last Admin: 02/23/17 22:25 Dose: 0.25 mg Amino Acids (Prosource No Carb Liquid Pkt) 30 ml PO BID@0800,1730 [facility] Last Admin: 02/24/17 09:22 Dose: 30 ml Bacitracin (Bacitracin -) 1 applic TP BID [facility] Last Admin: 02/24/17 09:23 Dose: 1 applic Diltiazem HCl (Cardizem Injection -) 10 mg IVPUSH Q4H PRN PRN Reason: TACHYCARDIA Last Admin: 02/13/17 12:13 Dose: 10 mg Diltiazem HCl (Cardizem Cd -) 180 mg PO DAILY [facility] Last Admin: 02/24/17 09:22 Dose: 180 mg Docusate Sodium (Colace -) 100 mg PO BID [facility] Last Admin: 02/24/17 09:23 Dose: 100 mg Gabapentin (Neurontin -) 100 mg PO TID [facility] Last Admin: 02/24/17 06:21 Dose: 100 mg Haloperidol (Haldol Injection (Fast Acting) -) 2 mg IM Q4H PRN PRN Reason: AGITATION Heparin Sodium (Porcine) (Heparin -) 1,000 unit IVPUSH PRN PRN PRN Reason: Heparin Last Admin: 02/21/17 17:35 Dose: 1,000 unit Heparin Sodium (Porcine) (Heparin -) 5,000 unit IVPUSH PRN PRN PRN Reason: Heparin Last Admin: 02/22/17 07:44 Dose: 5,000 unit Hydromorphone HCl (Dilaudid Injection -) 1 mg IVPB Q4H PRN PRN Reason: PAIN Last Admin: 02/17/17 22:22 Dose: 1 mg Heparin Sodium (Porcine) 25, (000 unit/ Sodium Chloride) 500 mls @ 20 mls/hr IV TITR [facility]; 1,000 UNIT/HR PRN Reason: Protocol Last Titration: 02/24/17 09:27 Dose: 2,550 unit/hr Cefazolin Sodium/Dextrose (Ancef 2 Gm Premixed Ivpb -) 50 mls @ 100 mls/hr IVPB Q8H-IV [facility] Last Admin: 02/24/17 09:48 Dose: 100 mls/hr Ertapenem 1 gm/ Sodium (Chloride) 50 mls @ 50 mls/hr IVPB DAILY [facility] PRN Reason: Protocol Last Admin: 02/24/17 09:48 Dose: 50 mls/hr Lidocaine (Lidoderm Patch -) 1 patch TP DAILY [facility] Last Admin: 02/24/17 09:23 Dose: 1 patch Metoprolol Tartrate (Lopressor Injection -) 5 mg IVPUSH Q4H PRN Last Admin: 02/16/17 05:48 Dose: 5 mg Metoprolol Tartrate (Lopressor -) 50 mg PO BID [facility] Last Admin: 02/24/17 09:23 Dose: 50 mg Miscellaneous (Lidoderm Patch Removal) 1 each MC DAILY@2200 [facility] Last Admin: 02/23/17 22:00 Dose: 1 each Montelukast Sodium (Singulair -) 10 mg PO HS [facility] Last Admin: 02/23/17 22:26 Dose: 10 mg Non-Formulary Medication (Fluticasone/Salmeterol [Advair Hfa 230-21 Mcg Inhaler] ) 1 inh PO BID [facility] Nystatin (Mycostatin Cream -) 1 applic TP BID [facility] Last Admin: 02/24/17 09:22 Dose: 1 applic Ondansetron HCl (Zofran Injection) 4 mg IVPB Q6H PRN PRN Reason: NAUSEA Oxycodone HCl (Roxicodone -) 5 mg PO Q4H PRN PRN Reason: PAIN Last Admin: 02/22/17 21:38 Dose: 5 mg Polyethylene Glycol (Miralax (For Daily Use) -) 17 gm PO BID [facility] Last Admin: 02/24/17 09:49 Dose: 17 gm Saliva Substitute (Mouthkote Solution -) 1 applic MM DAILY [facility] Valacyclovir HCl (Valtrex -) 1,000 mg PO BID [facility] Last Admin: 02/24/17 09:22 Dose: 1,000 mg - Objective Vital Signs: Vital Signs Temperature 98.4 F 02/24/17 10:00 Pulse Rate 98 H 02/24/17 10:00 Respiratory Rate 18 02/24/17 10:00 Blood Pressure 151/86 02/24/17 10:00 O2 Sat by Pulse Oximetry (%) 96 02/24/17 08:32 Constitutional: Yes: No Distress Eyes: Yes: Conjunctiva Clear Cardiovascular: Yes: Regular Rate and Rhythm, S1, S2 Respiratory: Yes: CTA Bilaterally Gastrointestinal: Yes: Normal Bowel Sounds, Soft. No: Tenderness Edema: Yes Edema: LLE: 1+, RLE: 1+ Labs: CBC, BMP 02/24/17 05:35 02/24/17 05:35 INR, PTT INR 1.28 (0.82-1.09) H 02/15/17 06:00 Fibrinogen 668.0 mg/dL (238-498) H 02/15/17 06:00 Assessment/Plan MSSA bacteremia/probable endocarditis Possible early psoas abscess Leukocytosis -improved Thrombocytopenia resolved Azotemia- resolved repeat BC ( 02/21, 02/22 ) no growth Continue cefazolin/ ertapenem
[2017-02-24] MEDS: LYTES/YERBA SANTA 240 ML BOTTLE MM SCH (14:33)
--- NOTE | 2017-02-24 14:36 | CONSULT ---
Consult Consult Specialty:: PM&R Reason for Consultation:: LBP - History of Present Illness Chief Complaint: LBP History of Present Illness: This is a 77 year old man with a medical history of obesity, HTN, COPD, who presented to the ED 02/10/17 with 2 days worsening LBP. He's had a prolonged hospitalization now for MSSA bacteremia and possible endocarditis, with MRI lumbar spine showing L4-5 spondylolisthesis with stenosis, as well as L4-5 disciitis/ osteomyelitis and anterior epidural soft tissue infection. Neurosurgery and ID have been managing the LBP. Physiatry is being consulted for further recommendations. - History Source History Provided By: Patient, Medical Record - Past Medical History Cardio/Vascular: Yes: HTN Pulmonary: Yes: COPD - Past Surgical History Past Surgical History: Yes: Hernia Repair - Alcohol/Substance Use Hx Alcohol Use: No History of Substance Use: reports: None - Smoking History Smoking history: Never smoked - Social History Usual Living Arrangement: With Spouse (lives in house with , 2 steps to enter and 1 step inside) ADL: Independent History of Recent Travel: Yes (as above) Home Medications - Allergies Allergies/Adverse Reactions: Allergies Allergy/AdvReac Type Severity Reaction Status Date / Time aloe Allergy Verified 02/10/17 22:58 aloe vera Allergy Verified 02/10/17 22:58 - Home Medications Home Medications: Ambulatory Orders Atenolol [Tenormin -] 50 mg PO DAILY 02/10/17 Diltiazem HCl [Diltiazem 24Hr Cd] 300 mg PO DAILY 02/10/17 Fluticasone/Salmeterol [Advair Hfa 230-21 Mcg Inhaler] 1 inh PO BID 02/10/17 Losartan/Hydrochlorothiazide [Hyzaar 50-12.5 Tablet] 2 each PO BID 02/10/17 Montelukast Na [Singulair -] 10 mg PO DAILY 02/10/17 Review of Systems Findings/Remarks: denies fevers, chills, changes in vision/ hearing/ mood, CP, SOB on supplemental O2, abdominal pain, nausea, vomiting, constipation, diarrhea, dysuria, numbness/ paresthesias. He notes ongoing LBP down LLE which is improving. Physical Exam Vital Signs: Vital Signs Temperature 98.4 F 02/24/17 10:00 Pulse Rate 98 H 02/24/17 10:00 Respiratory Rate 18 02/24/17 10:00 Blood Pressure 151/86 02/24/17 10:00 O2 Sat by Pulse Oximetry (%) 96 02/24/17 08:32 Musculoskeletal: Yes: Other (General: calm elderly M sitting in bed, continuously falling asleep but easily awoken N/M: B shoulder flexion to 100 degrees, 4+/5 BUE; 4-/5 R HF, 2/5 L HF, 4/5 B KE then 4+/5 B DF; Pinprick Intact BUE/ BLE, diffusely hyporeflexic BUE/ BLE, negative B Castro's sign, B plantars equivocal Extremities: 2+ BLE pitting edema, no B calf tenderness) Labs: CBC, BMP 02/24/17 05:35 02/24/17 05:35 Imaging - Results MRI: Report Reviewed (per HPI) Assessment/Plan Impression: 1) Deficits mobility/ ADLs 2) Deconditioning 3) Gait abnormality 4) LBP 2/2 disciitis/ OM 5) L L4-5 radiculopathy 6) MSSA bacteremia and possible endocarditis 7) Anemia 8) Thrombocytosis 9) ALEBRTO and lactic acidosis, improving 10) pA fib and acute on chronic heart failure 11) Overweight 12) Up to date flu/ pneumovax Recommendations: 1) PT for core/ BLE stretching strengthening ROM bed mobility transfers balance ambulation, stairs if tolerated 2) Falls, safety precautions 3) Cardiopulmonary precautions: breathing techniques, energy conservation, endurance 4) Heat/ ice low back prn, no US given infection 5) Trial lumbar corset prn 6) DVT ppx: on hep 7) Continue gabapentin and Lidoderm- would not increase gabapentin as pt falling asleep continuously during exam 8) Denies constipation on current bowel regimen 9) Skin protection: float heels, frequent turning 10) Nutrition consult for overweight 11) Discharge planning: depends on improvement in mental status and progress with therapy, but will benefit from inpatient rehabilitation at discharge Thank you for this referral.
--- NOTE | 2017-02-24 15:05 | PN ---
Progress Note (short form) - Note Progress Note: PULMONARY Much more alert, awake. Low grade temp overnight. Last Vital Signs Temp Pulse Resp BP Pulse Ox 98.4 F 98 H 18 151/86 96 02/24/17 10:00 02/24/17 10:00 02/24/17 10:00 02/24/17 10:00 02/24/17 08:32 Gen: NAD at rest Heart: RRR Lung: distant breath sounds Abd: soft, nontender Ext: no edema CBC, BMP 02/24/17 05:35 02/24/17 05:35 Active Medications Acetaminophen (Tylenol -) 650 mg PO Q4H PRN PRN Reason: FEVER OR PAIN Last Admin: 02/23/17 22:26 Dose: 650 mg Acetaminophen (Tylenol -) 650 mg PO Q4H PRN PRN Reason: PAIN Last Admin: 02/22/17 20:21 Dose: 650 mg Albuterol Sulfate (Ventolin 0.083% Nebulizer Soln -) 1 amp NEB Q4H PRN PRN Reason: SHORT OF BREATH/WHEEZING Last Admin: 02/23/17 17:17 Dose: 1 amp Albuterol/Ipratropium (Duoneb -) 1 amp NEB TIDR [facility] Last Admin: 02/24/17 14:11 Dose: 1 amp Alprazolam (Xanax -) 0.25 mg PO Q6H PRN Last Admin: 02/23/17 22:25 Dose: 0.25 mg Amino Acids (Prosource No Carb Liquid Pkt) 30 ml PO BID@0800,1730 [facility] Last Admin: 02/24/17 09:22 Dose: 30 ml Bacitracin (Bacitracin -) 1 applic TP BID [facility] Last Admin: 02/24/17 09:23 Dose: 1 applic Diltiazem HCl (Cardizem Injection -) 10 mg IVPUSH Q4H PRN PRN Reason: TACHYCARDIA Last Admin: 02/13/17 12:13 Dose: 10 mg Diltiazem HCl (Cardizem Cd -) 180 mg PO DAILY [facility] Last Admin: 02/24/17 09:22 Dose: 180 mg Docusate Sodium (Colace -) 100 mg PO BID [facility] Last Admin: 02/24/17 09:23 Dose: 100 mg Gabapentin (Neurontin -) 100 mg PO TID [facility] Last Admin: 02/24/17 14:33 Dose: 100 mg Haloperidol (Haldol Injection (Fast Acting) -) 2 mg IM Q4H PRN PRN Reason: AGITATION Heparin Sodium (Porcine) (Heparin -) 1,000 unit IVPUSH PRN PRN PRN Reason: Heparin Last Admin: 02/21/17 17:35 Dose: 1,000 unit Heparin Sodium (Porcine) (Heparin -) 5,000 unit IVPUSH PRN PRN PRN Reason: Heparin Last Admin: 02/22/17 07:44 Dose: 5,000 unit Hydromorphone HCl (Dilaudid Injection -) 1 mg IVPB Q4H PRN PRN Reason: PAIN Last Admin: 02/17/17 22:22 Dose: 1 mg Heparin Sodium (Porcine) 25, (000 unit/ Sodium Chloride) 500 mls @ 20 mls/hr IV TITR [facility]; 1,000 UNIT/HR PRN Reason: Protocol Last Admin: 02/24/17 14:34 Dose: 51 mls/hr Cefazolin Sodium/Dextrose (Ancef 2 Gm Premixed Ivpb -) 50 mls @ 100 mls/hr IVPB Q8H-IV [facility] Last Admin: 02/24/17 09:48 Dose: 100 mls/hr Ertapenem 1 gm/ Sodium (Chloride) 50 mls @ 50 mls/hr IVPB DAILY [facility] PRN Reason: Protocol Last Admin: 02/24/17 09:48 Dose: 50 mls/hr Lidocaine (Lidoderm Patch -) 1 patch TP DAILY [facility] Last Admin: 02/24/17 09:23 Dose: 1 patch Metoprolol Tartrate (Lopressor Injection -) 5 mg IVPUSH Q4H PRN Last Admin: 02/16/17 05:48 Dose: 5 mg Metoprolol Tartrate (Lopressor -) 50 mg PO BID [facility] Last Admin: 02/24/17 09:23 Dose: 50 mg Miscellaneous (Lidoderm Patch Removal) 1 each MC DAILY@2200 [facility] Last Admin: 02/23/17 22:00 Dose: 1 each Montelukast Sodium (Singulair -) 10 mg PO HS [facility] Last Admin: 02/23/17 22:26 Dose: 10 mg Non-Formulary Medication (Fluticasone/Salmeterol [Advair Hfa 230-21 Mcg Inhaler] ) 1 inh PO BID [facility] Nystatin (Mycostatin Cream -) 1 applic TP BID [facility] Last Admin: 02/24/17 09:22 Dose: 1 applic Ondansetron HCl (Zofran Injection) 4 mg IVPB Q6H PRN PRN Reason: NAUSEA Oxycodone HCl (Roxicodone -) 5 mg PO Q4H PRN PRN Reason: PAIN Last Admin: 02/22/17 21:38 Dose: 5 mg Polyethylene Glycol (Miralax (For Daily Use) -) 17 gm PO BID [facility] Last Admin: 02/24/17 09:49 Dose: 17 gm Saliva Substitute (Mouthkote Solution -) 1 applic MM DAILY [facility] Last Admin: 02/24/17 14:33 Dose: 1 applic Valacyclovir HCl (Valtrex -) 1,000 mg PO BID [facility] Last Admin: 02/24/17 09:22 Dose: 1,000 mg A/P Altered Mental Status improving Toxic-Metabolic Encephalopathy Persistent MSSA Bacteremia Sepsis Psoas Abscess Paroxysmal Atrial Fibrillation r/o Septic Emboli Acute Kidney Injury improving LV Diastolic Dysfunction - continue antibiotics - aspiration precuations - inhaled bronchodilators as needed - rate controlled - continue anticoagulation - minimize sedatives - aspiration precautions
--- NOTE | 2017-02-24 15:22 | PN ---
Progress Note, Physician History of Present Illness: Pt seen and examined at bedside. He is awake and alert. He denies shortness of breath. - Current Medication List Current Medications: Active Medications Acetaminophen (Tylenol -) 650 mg PO Q4H PRN PRN Reason: FEVER OR PAIN Last Admin: 02/23/17 22:26 Dose: 650 mg Acetaminophen (Tylenol -) 650 mg PO Q4H PRN PRN Reason: PAIN Last Admin: 02/22/17 20:21 Dose: 650 mg Albuterol Sulfate (Ventolin 0.083% Nebulizer Soln -) 1 amp NEB Q4H PRN PRN Reason: SHORT OF BREATH/WHEEZING Last Admin: 02/23/17 17:17 Dose: 1 amp Albuterol/Ipratropium (Duoneb -) 1 amp NEB TIDR [facility] Last Admin: 02/24/17 14:11 Dose: 1 amp Alprazolam (Xanax -) 0.25 mg PO Q6H PRN Last Admin: 02/23/17 22:25 Dose: 0.25 mg Amino Acids (Prosource No Carb Liquid Pkt) 30 ml PO BID@0800,1730 [facility] Last Admin: 02/24/17 09:22 Dose: 30 ml Bacitracin (Bacitracin -) 1 applic TP BID [facility] Last Admin: 02/24/17 09:23 Dose: 1 applic Diltiazem HCl (Cardizem Injection -) 10 mg IVPUSH Q4H PRN PRN Reason: TACHYCARDIA Last Admin: 02/13/17 12:13 Dose: 10 mg Diltiazem HCl (Cardizem Cd -) 180 mg PO DAILY [facility] Last Admin: 02/24/17 09:22 Dose: 180 mg Docusate Sodium (Colace -) 100 mg PO BID [facility] Last Admin: 02/24/17 09:23 Dose: 100 mg Gabapentin (Neurontin -) 100 mg PO TID [facility] Last Admin: 02/24/17 14:33 Dose: 100 mg Haloperidol (Haldol Injection (Fast Acting) -) 2 mg IM Q4H PRN PRN Reason: AGITATION Heparin Sodium (Porcine) (Heparin -) 1,000 unit IVPUSH PRN PRN PRN Reason: Heparin Last Admin: 02/21/17 17:35 Dose: 1,000 unit Heparin Sodium (Porcine) (Heparin -) 5,000 unit IVPUSH PRN PRN PRN Reason: Heparin Last Admin: 02/22/17 07:44 Dose: 5,000 unit Hydromorphone HCl (Dilaudid Injection -) 1 mg IVPB Q4H PRN PRN Reason: PAIN Last Admin: 02/17/17 22:22 Dose: 1 mg Heparin Sodium (Porcine) 25, (000 unit/ Sodium Chloride) 500 mls @ 20 mls/hr IV TITR [facility]; 1,000 UNIT/HR PRN Reason: Protocol Last Admin: 02/24/17 14:34 Dose: 51 mls/hr Cefazolin Sodium/Dextrose (Ancef 2 Gm Premixed Ivpb -) 50 mls @ 100 mls/hr IVPB Q8H-IV [facility] Last Admin: 02/24/17 09:48 Dose: 100 mls/hr Ertapenem 1 gm/ Sodium (Chloride) 50 mls @ 50 mls/hr IVPB DAILY [facility] PRN Reason: Protocol Last Admin: 02/24/17 09:48 Dose: 50 mls/hr Lidocaine (Lidoderm Patch -) 1 patch TP DAILY [facility] Last Admin: 02/24/17 09:23 Dose: 1 patch Metoprolol Tartrate (Lopressor Injection -) 5 mg IVPUSH Q4H PRN Last Admin: 02/16/17 05:48 Dose: 5 mg Metoprolol Tartrate (Lopressor -) 50 mg PO BID [facility] Last Admin: 02/24/17 09:23 Dose: 50 mg Miscellaneous (Lidoderm Patch Removal) 1 each MC DAILY@2200 [facility] Last Admin: 02/23/17 22:00 Dose: 1 each Montelukast Sodium (Singulair -) 10 mg PO HS [facility] Last Admin: 02/23/17 22:26 Dose: 10 mg Non-Formulary Medication (Fluticasone/Salmeterol [Advair Hfa 230-21 Mcg Inhaler] ) 1 inh PO BID [facility] Nystatin (Mycostatin Cream -) 1 applic TP BID [facility] Last Admin: 02/24/17 09:22 Dose: 1 applic Ondansetron HCl (Zofran Injection) 4 mg IVPB Q6H PRN PRN Reason: NAUSEA Oxycodone HCl (Roxicodone -) 5 mg PO Q4H PRN PRN Reason: PAIN Last Admin: 02/22/17 21:38 Dose: 5 mg Polyethylene Glycol (Miralax (For Daily Use) -) 17 gm PO BID [facility] Last Admin: 02/24/17 09:49 Dose: 17 gm Saliva Substitute (Mouthkote Solution -) 1 applic MM DAILY [facility] Last Admin: 02/24/17 14:33 Dose: 1 applic Valacyclovir HCl (Valtrex -) 1,000 mg PO BID [facility] Last Admin: 02/24/17 09:22 Dose: 1,000 mg - Objective Vital Signs: Vital Signs Temperature 98.2 F 02/24/17 14:18 Pulse Rate 85 02/24/17 14:18 Respiratory Rate 22 02/24/17 14:18 Blood Pressure 147/86 02/24/17 14:18 O2 Sat by Pulse Oximetry (%) 96 02/24/17 08:32 Constitutional: Yes: Calm Eyes: Yes: Conjunctiva Clear HENT: Yes: Atraumatic Neck: Yes: Supple Cardiovascular: Yes: S1, S2 Respiratory: Yes: On Nasal O2 Gastrointestinal: Yes: Soft Genitourinary: Yes: Incontinence Musculoskeletal: Yes: Back Pain Edema: Yes Edema: LLE: Trace, RLE: Trace Neurological: Yes: Oriented Psychiatric: Yes: Oriented Labs: CBC, BMP 02/24/17 05:35 02/24/17 05:35 INR, PTT INR 1.28 (0.82-1.09) H 02/15/17 06:00 Fibrinogen 668.0 mg/dL (238-498) H 02/15/17 06:00 Problem List - Problems (1) Back pain Code(s): M54.9 - DORSALGIA, UNSPECIFIED Qualifiers: Back pain location: low back pain Chronicity: acute Back pain laterality: bilateral Sciatica presence: without sciatica Qualified Code(s): M54.5 - Low back pain (2) Hypotension Code(s): I95.9 - HYPOTENSION, UNSPECIFIED Qualifiers: Hypotension type: unspecified hypotension type Qualified Code(s): I95.9 - Hypotension, unspecified (3) ALBERTO (acute kidney injury) Code(s): N17.9 - ACUTE KIDNEY FAILURE, UNSPECIFIED Assessment/Plan Current Medications Generic Name Dose Route Start Last Admin Trade Name Freq PRN Reason Stop Dose Admin Acetaminophen 650 mg 02/10/17 15:43 02/23/17 22:26 Tylenol - PO 650 mg Q4H PRN Administration FEVER OR PAIN Acetaminophen 650 mg 02/20/17 13:25 02/22/17 20:21 Tylenol - PO 650 mg Q4H PRN Administration PAIN Albuterol Sulfate 1 amp 02/17/17 16:46 02/23/17 17:17 Ventolin 0.083% Nebulizer Soln - NEB 1 amp Q4H PRN Administration SHORT OF BREATH/WHEEZING Albuterol/Ipratropium 1 amp 02/17/17 22:00 02/24/17 14:11 Duoneb - NEB 1 amp TIDR [facility] Administration Alprazolam 0.25 mg 02/13/17 02:25 02/23/17 22:25 Xanax - PO 0.25 mg Q6H PRN Administration Amino Acids 30 ml 02/22/17 17:30 02/24/17 09:22 Prosource No Carb Liquid Pkt PO 30 ml BID@0800,1730 [facility] Administration Bacitracin 1 applic 02/20/17 12:00 02/24/17 09:23 Bacitracin - TP 1 applic BID [facility] Administration Diltiazem HCl 10 mg 02/12/17 07:18 02/13/17 12:13 Cardizem Injection - IVPUSH 10 mg Q4H PRN Administration TACHYCARDIA Diltiazem HCl 180 mg 02/16/17 10:00 02/24/17 09:22 Cardizem Cd - PO 180 mg DAILY [facility] Administration Docusate Sodium 100 mg 02/10/17 22:00 02/24/17 09:23 Colace - PO 100 mg BID [facility] Administration Gabapentin 100 mg 02/11/17 08:00 02/24/17 14:33 Neurontin - PO 100 mg TID [facility] Administration Haloperidol 2 mg 02/17/17 08:22 Haldol Injection (Fast Acting) - IM Q4H PRN AGITATION Heparin Sodium (Porcine) 1,000 unit 02/12/17 06:55 02/21/17 17:35 Heparin - IVPUSH 1,000 unit PRN PRN Administration Heparin Heparin Sodium (Porcine) 5,000 unit 02/12/17 06:55 02/22/17 07:44 Heparin - IVPUSH 5,000 unit PRN PRN Administration Heparin Hydromorphone HCl 1 mg 02/10/17 15:43 02/17/17 22:22 Dilaudid Injection - IVPB 1 mg Q4H PRN Administration PAIN Heparin Sodium (Porcine) 25, 500 mls @ 20 mls/hr 02/12/17 07:00 02/24/17 14:34 000 unit/ Sodium Chloride IV 51 mls/hr TITR [facility] Administration Protocol 1,000 UNIT/HR Cefazolin Sodium/Dextrose 50 mls @ 100 mls/hr 02/12/17 10:00 02/24/17 09:48 Ancef 2 Gm Premixed Ivpb - IVPB 100 mls/hr Q8H-IV [facility] Administration Ertapenem 1 gm/ Sodium 50 mls @ 50 mls/hr 02/21/17 12:00 02/24/17 09:48 Chloride IVPB 50 mls/hr DAILY [facility] Administration Protocol Lidocaine 1 patch 02/11/17 10:00 02/24/17 09:23 Lidoderm Patch - TP 1 patch DAILY [facility] Administration Metoprolol Tartrate 5 mg 02/12/17 23:16 02/16/17 05:48 Lopressor Injection - IVPUSH 5 mg Q4H PRN Administration Metoprolol Tartrate 50 mg 02/14/17 22:00 02/24/17 09:23 Lopressor - PO 50 mg BID [facility] Administration Miscellaneous 1 each 02/11/17 22:00 02/23/17 22:00 Lidoderm Patch Removal MC 1 each DAILY@2200 [facility] Administration Montelukast Sodium 10 mg 02/10/17 22:00 02/23/17 22:26 Singulair - PO 10 mg HS [facility] Administration Non-Formulary Medication 1 inh 02/10/17 22:00 Fluticasone/Salmeterol [Advair Hfa 230-21 Mcg Inhaler] PO BID [facility] Nystatin 1 applic 02/19/17 23:00 02/24/17 09:22 Mycostatin Cream - TP 1 applic BID [facility] Administration Ondansetron HCl 4 mg 02/10/17 15:43 Zofran Injection IVPB Q6H PRN NAUSEA Oxycodone HCl 5 mg 02/10/17 15:43 02/22/17 21:38 Roxicodone - PO 5 mg Q4H PRN Administration PAIN Polyethylene Glycol 17 gm 02/14/17 22:00 02/24/17 09:49 Miralax (For Daily Use) - PO 17 gm BID [facility] Administration Saliva Substitute 1 applic 02/24/17 10:00 02/24/17 14:33 Mouthkote Solution - MM 1 applic DAILY [facility] Administration Valacyclovir HCl 1,000 mg 02/16/17 11:00 02/24/17 09:22 Valtrex - PO 1,000 mg BID [facility] Administration Impression 1. ALBERTO 2. lactic acidosis 3. hypotension 4. hx of HTN 5. asthma 6. back pain 7. r/o dissection 8. sepsis 9. bacteremia 10. PFO 11. hypernatremia - resolving Plan - renal function is stabilizing, continue to monitor - he tolerated dose of lasix yesterday - volumes status is improved - will follow PRN - cxr report reviewed Dr Traore
[2017-02-24] MEDS: MONTELUKAST NA 10 MG TABLET PO SCH (22:28)
[2017-02-24] MEDS: LIDOCAINE PATCH REMOVAL MC SCH (22:29)
[2017-02-25] MEDS: CEFAZOLIN 2 GM/D5W 50 ML IVPB SCH ×3 (01:30→17:17)
[2017-02-25] MEDS: GABAPENTIN 100 MG CAPSULE (FP) PO SCH ×3 (05:48→22:47)
[2017-02-25] MEDS: ALBUTEROL SO4 2.5/IPRATROPIUM 0.5 INH SOL 3 ML VIAL.NEB. NEB SCH ×3 (06:40→21:37)
[2017-02-25 06:49] LABS: MCH 33.9 pg (25.7-33.7); MCHC 33.4 g/dl (32.0-35.9); MEAN CELL VOLUME 101.3 fl (80-96); MEAN PLT VOLUME 8.3 fl (7.5-11.1); PLATELET COUNT 501 K/MM3 (134-434); RDW 14.1 % (11.9-15.9); WHITE BLOOD COUNT 12.5 K/mm3 (4.0-10.0)
[2017-02-25 07:17] LABS: CALCIUM 8.2 mg/dL (8.5-10.1); COCKROFT - GAULT 131.71; CREATININE 0.6 mg/dL (0.7-1.3); MAGNESIUM 1.7 mg/dL (1.8-2.4)
--- NOTE | 2017-02-25 07:39 | PN ---
Progress Note (short form) - Note Progress Note: NEUROSURGERY Pain "A lot better" PE: AF, VSS Sleepy but easily arousable HEENT- NC/AT; Neck- supple; Cor- RR; Lungs- no wheezes; Abd- obese, benign; Ext - No sign of DVT except mild chronic B edema CN- intact; Motor- 4+/5 B UE/LE except L IP/Quad/EHL/TA/gastroc/inv/ev 4- pain; Sensation- diminished LT L L4-5 WBC 12.5 MSSA on blood culture + 1/2 from 02/14; 02-16 specimen + 1/2 MSSA; 6-3 cultures 1 /2 +; Blood culture 6-5 and 6-6 no growth as yet L4-5 spondylolisthesis with stenosis and mechanical LBP and L L4-5 radiculopathy L4-5 discitis/osteomyelitis with anterior epidural soft tissue infection Clinically improved On combination iv abx tx (inc ertepenem) per ID Care and pt progress d/w Dr Gentile yesterday
[2017-02-25] MEDS: AMINO ACIDS/PROTEIN HYDROLYS 30 ML LIQUID.PKT PO SCH ×2 (08:39→17:16)
[2017-02-25] MEDS: NYSTATIN 100,000 UNIT/GM TOPICAL CREAM 15 GM TUBE TP SCH ×2 (09:03→23:03)
[2017-02-25] MEDS ORDERED: PT OWN MED DRAWER 7, Y5N ONE ×5 (09:15→22:59)
[2017-02-25 09:18] LABS: ERYTHROCYTE SEDIMENTATION RATE > 130 mm/hr (0-20)
[2017-02-25 09:26] LABS: HYPOCHROMIA 1+; PLATELET ESTIMATE INCREASED (NORMAL); POLYCHROMASIA FEW
[2017-02-25] MEDS: valACYclovir HCL 500 MG TABLET (FP) PO SCH ×2 (09:37→22:47)
[2017-02-25] MEDS: LYTES/YERBA SANTA 240 ML BOTTLE MM SCH (09:37)
[2017-02-25] MEDS: METOPROLOL TARTRATE 50 MG TABLET (FP) PO SCH ×2 (09:37→22:47)
[2017-02-25] MEDS: ERTAPENEM SODIUM 1 GM in SODIUM CHLORIDE 50 ML IVPB SCH (09:37)
[2017-02-25] MEDS: DOCUSATE SODIUM 100 MG CAPSULE (FP) PO SCH ×2 (09:37→22:47)
[2017-02-25] MEDS: BACITRACIN 30 GM TUBE TOPICAL OINTMENT TP SCH ×2 (09:38→23:03)
[2017-02-25] MEDS: POLYETHYLENE GLYCOL 3350 119 GM BTL PO SCH ×2 (09:38→23:03)
[2017-02-25] MEDS: LIDOCAINE 5% TOPICAL PATCH TP SCH (09:38)
[2017-02-25] MEDS: HEPARIN - 25,000 UNIT in SODIUM CHLORIDE 495 ML IV SCH ×2 (09:40→11:47)
--- NOTE | 2017-02-25 09:54 | PN ---
Progress Note (short form) - Note Progress Note: Patient is more alert today and anxious to see if he is better with PT. Back and left foot pain are noted more when he stands so the nurse will medicate before the PT session. WBC 12,500 and Blood C/S all negative since the positive 02/19 blood cultures. On Exam: Vital Signs Temp 97.9 F 02/25/17 05:56 Pulse 95 H 02/25/17 09:16 Resp 20 02/25/17 09:00 BP 155/81 02/25/17 05:56 Pulse Ox 94 L 02/25/17 09:16 Intake & Output 02/24/17 02/24/17 02/25/17 11:59 23:59 11:59 Intake Total 608 150 600 Output Total 450 Balance 158 150 600 Intake: IV 408 550 LFA #22 02/22/17 408 550 IVPB 50 Oral 200 150 Output: Urine 450 Fragoso 450 Other: Voiding Method Incontinent Incontinent Incontinent # Unmeasured Voids Void 2 Fragoso 2 Bowel Movement Yes No # Bowel Movements 1 Alert Chest: Few rhonchi at the bases Cor Reg Ext: 1+ edema with erythema left leg about the same. Abd: slightly distended; no tender. Abnormal Lab Results 02/24/17 02/25/17 02/25/17 05:35 05:35 05:35 WBC 12.5 H RBC 2.89 L Hgb 9.8 L Hct 29.3 L MCV 101.3 H Plt Count 501 H Neutrophils % 84.0 H ESR > 130 H > 130 H PTT (Actin FS) Chloride 97 L Creatinine 0.6 L Calcium 8.2 L Magnesium 1.7 L 02/25/17 05:35 WBC RBC Hgb Hct MCV Plt Count Neutrophils % ESR PTT (Actin FS) 54.4 H Chloride Creatinine Calcium Magnesium IMP: MSSA Sepsis acute Acute Discitis Lumbar spine Acute Osteomyelitis L3-L5 Epidural abscess A. Fib to NSR Hypertension Deconditioned Acute Pain Plan: Continue both IV antibiotics PT Incentive spirometry nutritional support F/U Lab Pain Rx Problem List - Problems (1) Atrial fibrillation with rapid ventricular response Code(s): I48.91 - UNSPECIFIED ATRIAL FIBRILLATION (2) Back pain Code(s): M54.9 - DORSALGIA, UNSPECIFIED Qualifiers: Back pain location: low back pain Chronicity: acute Back pain laterality: bilateral Sciatica presence: without sciatica Qualified Code(s): M54.5 - Low back pain (3) Sepsis Code(s): A41.9 - SEPSIS, UNSPECIFIED ORGANISM (4) ALBERTO (acute kidney injury) Code(s): N17.9 - ACUTE KIDNEY FAILURE, UNSPECIFIED (5) Hypotension Code(s): I95.9 - HYPOTENSION, UNSPECIFIED Qualifiers: Hypotension type: unspecified hypotension type Qualified Code(s): I95.9 - Hypotension, unspecified (6) Lactic acidosis Code(s): E87.2 - ACIDOSIS (7) Sepsis associated hypotension Code(s): A41.9 - SEPSIS, UNSPECIFIED ORGANISM (8) AAA (abdominal aortic aneurysm) without rupture Code(s): I71.4 - ABDOMINAL AORTIC ANEURYSM, WITHOUT RUPTURE (9) Pain Code(s): R52 - PAIN, UNSPECIFIED (10) Foot pain, left Code(s): M79.672 - PAIN IN LEFT FOOT
--- NOTE | 2017-02-25 11:36 | PN ---
Progress Note, Physician History of Present Illness: Awake and alert C/O back pain with movement Was able to stand today Temps, WBC improved Blood c/s 02/21, 02/22 no growth - Current Medication List Current Medications: Active Medications Acetaminophen (Tylenol -) 650 mg PO Q4H PRN PRN Reason: FEVER OR PAIN Last Admin: 02/23/17 22:26 Dose: 650 mg Acetaminophen (Tylenol -) 650 mg PO Q4H PRN PRN Reason: PAIN Last Admin: 02/22/17 20:21 Dose: 650 mg Albuterol Sulfate (Ventolin 0.083% Nebulizer Soln -) 1 amp NEB Q4H PRN PRN Reason: SHORT OF BREATH/WHEEZING Last Admin: 02/23/17 17:17 Dose: 1 amp Albuterol/Ipratropium (Duoneb -) 1 amp NEB TIDR [facility] Last Admin: 02/25/17 06:40 Dose: 1 amp Alprazolam (Xanax -) 0.25 mg PO Q6H PRN Last Admin: 02/23/17 22:25 Dose: 0.25 mg Amino Acids (Prosource No Carb Liquid Pkt) 30 ml PO BID@0800,1730 [facility] Last Admin: 02/25/17 08:39 Dose: 30 ml Bacitracin (Bacitracin -) 1 applic TP BID [facility] Last Admin: 02/25/17 09:38 Dose: 1 applic Diltiazem HCl (Cardizem Injection -) 10 mg IVPUSH Q4H PRN PRN Reason: TACHYCARDIA Last Admin: 02/13/17 12:13 Dose: 10 mg Diltiazem HCl (Cardizem Cd -) 180 mg PO DAILY [facility] Last Admin: 02/25/17 09:37 Dose: 180 mg Docusate Sodium (Colace -) 100 mg PO BID [facility] Last Admin: 02/25/17 09:37 Dose: 100 mg Gabapentin (Neurontin -) 100 mg PO TID [facility] Last Admin: 02/25/17 05:48 Dose: 100 mg Haloperidol (Haldol Injection (Fast Acting) -) 2 mg IM Q4H PRN PRN Reason: AGITATION Heparin Sodium (Porcine) (Heparin -) 1,000 unit IVPUSH PRN PRN PRN Reason: Heparin Last Admin: 02/21/17 17:35 Dose: 1,000 unit Heparin Sodium (Porcine) (Heparin -) 5,000 unit IVPUSH PRN PRN PRN Reason: Heparin Last Admin: 02/22/17 07:44 Dose: 5,000 unit Hydromorphone HCl (Dilaudid Injection -) 1 mg IVPB Q4H PRN PRN Reason: PAIN Last Admin: 02/17/17 22:22 Dose: 1 mg Heparin Sodium (Porcine) 25, (000 unit/ Sodium Chloride) 500 mls @ 20 mls/hr IV TITR [facility]; 1,000 UNIT/HR PRN Reason: Protocol Last Titration: 02/25/17 09:40 Dose: 2,550 unit/hr Cefazolin Sodium/Dextrose (Ancef 2 Gm Premixed Ivpb -) 50 mls @ 100 mls/hr IVPB Q8H-IV [facility] Last Admin: 02/25/17 09:37 Dose: 100 mls/hr Ertapenem 1 gm/ Sodium (Chloride) 50 mls @ 50 mls/hr IVPB DAILY [facility] PRN Reason: Protocol Last Admin: 02/25/17 09:37 Dose: 50 mls/hr Lidocaine (Lidoderm Patch -) 1 patch TP DAILY [facility] Last Admin: 02/25/17 09:38 Dose: 1 patch Magnesium Sulfate (Magnesium Sulfate) 1 gm IVPB ONCE ONE Stop: 02/25/17 09:55 Metoprolol Tartrate (Lopressor Injection -) 5 mg IVPUSH Q4H PRN Last Admin: 02/16/17 05:48 Dose: 5 mg Metoprolol Tartrate (Lopressor -) 50 mg PO BID [facility] Last Admin: 02/25/17 09:37 Dose: 50 mg Miscellaneous (Lidoderm Patch Removal) 1 each MC DAILY@2200 [facility] Last Admin: 02/24/17 22:29 Dose: 1 each Montelukast Sodium (Singulair -) 10 mg PO HS [facility] Last Admin: 02/24/17 22:28 Dose: 10 mg Non-Formulary Medication (Fluticasone/Salmeterol [Advair Hfa 230-21 Mcg Inhaler] ) 1 inh PO BID [facility] Nystatin (Mycostatin Cream -) 1 applic TP BID [facility] Last Admin: 02/24/17 22:39 Dose: 1 applic Ondansetron HCl (Zofran Injection) 4 mg IVPB Q6H PRN PRN Reason: NAUSEA Oxycodone HCl (Roxicodone -) 5 mg PO Q4H PRN PRN Reason: PAIN Last Admin: 02/22/17 21:38 Dose: 5 mg Polyethylene Glycol (Miralax (For Daily Use) -) 17 gm PO BID [facility] Last Admin: 02/25/17 09:38 Dose: Not Given Saliva Substitute (Mouthkote Solution -) 1 applic MM DAILY [facility] Last Admin: 02/25/17 09:37 Dose: 1 applic Valacyclovir HCl (Valtrex -) 1,000 mg PO BID [facility] Last Admin: 02/25/17 09:37 Dose: 1,000 mg - Objective Vital Signs: Vital Signs Temperature 98.2 F 02/25/17 10:00 Pulse Rate 95 H 02/25/17 10:00 Respiratory Rate 18 02/25/17 10:00 Blood Pressure 143/84 02/25/17 10:00 O2 Sat by Pulse Oximetry (%) 94 L 02/25/17 09:16 Constitutional: Yes: No Distress Eyes: Yes: Conjunctiva Clear Cardiovascular: Yes: Regular Rate and Rhythm, S1, S2 Respiratory: Yes: CTA Bilaterally Gastrointestinal: Yes: Normal Bowel Sounds, Soft, Abdomen, Obese. No: Tenderness Extremities: Yes: Other (decreased erythema, dorsum L foot) Edema: Yes Edema: LLE: 2+, RLE: 2+ Integumentary: Yes: Other (dry rash R buttock) Labs: CBC, BMP 02/25/17 05:35 02/25/17 05:35 INR, PTT INR 1.28 (0.82-1.09) H 02/15/17 06:00 Fibrinogen 668.0 mg/dL (238-498) H 02/15/17 06:00 Assessment/Plan MSSA bacteremia/probable endocarditis Possible early psoas abscess Leukocytosis -improved Thrombocytopenia resolved Azotemia- resolved repeat BC ( 02/21, 02/22 ) no growth Continue cefazolin/ ertapenem
[2017-02-25] MEDS: oxyCODONE HCL 5 MG TABLET PO PRN ×2 (11:41→22:48)
[2017-02-25] MEDS: ACETAMINOPHEN 325 MG TABLET (FP) PO PRN ×2 (11:42→22:48)
[2017-02-25] MEDS ORDERED: MAGNESIUM SULF 50% (8.12 MEQ/2 ML-1 GM VIAL) IVPB ONE (12:45)
--- NOTE | 2017-02-25 13:06 | PN ---
Progress Note, Physician History of Present Illness: Low grade fevers, MSSA bacteremia has cleared, LBP and left foot pain improved. Remains in SR. - Current Medication List Current Medications: Active Medications Acetaminophen (Tylenol -) 650 mg PO Q4H PRN PRN Reason: FEVER OR PAIN Last Admin: 02/25/17 11:42 Dose: 650 mg Acetaminophen (Tylenol -) 650 mg PO Q4H PRN PRN Reason: PAIN Last Admin: 02/22/17 20:21 Dose: 650 mg Albuterol Sulfate (Ventolin 0.083% Nebulizer Soln -) 1 amp NEB Q4H PRN PRN Reason: SHORT OF BREATH/WHEEZING Last Admin: 02/23/17 17:17 Dose: 1 amp Albuterol/Ipratropium (Duoneb -) 1 amp NEB TIDR [facility] Last Admin: 02/25/17 06:40 Dose: 1 amp Alprazolam (Xanax -) 0.25 mg PO Q6H PRN Last Admin: 02/23/17 22:25 Dose: 0.25 mg Amino Acids (Prosource No Carb Liquid Pkt) 30 ml PO BID@0800,1730 [facility] Last Admin: 02/25/17 08:39 Dose: 30 ml Bacitracin (Bacitracin -) 1 applic TP BID [facility] Last Admin: 02/25/17 09:38 Dose: 1 applic Diltiazem HCl (Cardizem Injection -) 10 mg IVPUSH Q4H PRN PRN Reason: TACHYCARDIA Last Admin: 02/13/17 12:13 Dose: 10 mg Diltiazem HCl (Cardizem Cd -) 180 mg PO DAILY [facility] Last Admin: 02/25/17 09:37 Dose: 180 mg Docusate Sodium (Colace -) 100 mg PO BID [facility] Last Admin: 02/25/17 09:37 Dose: 100 mg Gabapentin (Neurontin -) 100 mg PO TID [facility] Last Admin: 02/25/17 05:48 Dose: 100 mg Haloperidol (Haldol Injection (Fast Acting) -) 2 mg IM Q4H PRN PRN Reason: AGITATION Heparin Sodium (Porcine) (Heparin -) 1,000 unit IVPUSH PRN PRN PRN Reason: Heparin Last Admin: 02/21/17 17:35 Dose: 1,000 unit Heparin Sodium (Porcine) (Heparin -) 5,000 unit IVPUSH PRN PRN PRN Reason: Heparin Last Admin: 02/22/17 07:44 Dose: 5,000 unit Hydromorphone HCl (Dilaudid Injection -) 1 mg IVPB Q4H PRN PRN Reason: PAIN Last Admin: 02/17/17 22:22 Dose: 1 mg Heparin Sodium (Porcine) 25, (000 unit/ Sodium Chloride) 500 mls @ 20 mls/hr IV TITR [facility]; 1,000 UNIT/HR PRN Reason: Protocol Last Admin: 02/25/17 11:47 Dose: 51 mls/hr Cefazolin Sodium/Dextrose (Ancef 2 Gm Premixed Ivpb -) 50 mls @ 100 mls/hr IVPB Q8H-IV [facility] Last Admin: 02/25/17 09:37 Dose: 100 mls/hr Ertapenem 1 gm/ Sodium (Chloride) 50 mls @ 50 mls/hr IVPB DAILY [facility] PRN Reason: Protocol Last Admin: 02/25/17 09:37 Dose: 50 mls/hr Lidocaine (Lidoderm Patch -) 1 patch TP DAILY [facility] Last Admin: 02/25/17 09:38 Dose: 1 patch Metoprolol Tartrate (Lopressor Injection -) 5 mg IVPUSH Q4H PRN Last Admin: 02/16/17 05:48 Dose: 5 mg Metoprolol Tartrate (Lopressor -) 50 mg PO BID [facility] Last Admin: 02/25/17 09:37 Dose: 50 mg Miscellaneous (Lidoderm Patch Removal) 1 each MC DAILY@2200 [facility] Last Admin: 02/24/17 22:29 Dose: 1 each Montelukast Sodium (Singulair -) 10 mg PO HS [facility] Last Admin: 02/24/17 22:28 Dose: 10 mg Non-Formulary Medication (Fluticasone/Salmeterol [Advair Hfa 230-21 Mcg Inhaler] ) 1 inh PO BID [facility] Nystatin (Mycostatin Cream -) 1 applic TP BID [facility] Last Admin: 02/24/17 22:39 Dose: 1 applic Ondansetron HCl (Zofran Injection) 4 mg IVPB Q6H PRN PRN Reason: NAUSEA Oxycodone HCl (Roxicodone -) 5 mg PO Q4H PRN PRN Reason: PAIN Last Admin: 02/25/17 11:41 Dose: 5 mg Polyethylene Glycol (Miralax (For Daily Use) -) 17 gm PO BID [facility] Last Admin: 02/25/17 09:38 Dose: Not Given Saliva Substitute (Mouthkote Solution -) 1 applic MM DAILY [facility] Last Admin: 02/25/17 09:37 Dose: 1 applic Valacyclovir HCl (Valtrex -) 1,000 mg PO BID [facility] Last Admin: 02/25/17 09:37 Dose: 1,000 mg - Objective Vital Signs: Vital Signs Temperature 98.2 F 02/25/17 10:00 Pulse Rate 95 H 02/25/17 10:00 Respiratory Rate 18 02/25/17 10:00 Blood Pressure 143/84 02/25/17 10:00 O2 Sat by Pulse Oximetry (%) 94 L 02/25/17 09:16 Constitutional: Yes: No Distress, Calm Neck: Yes: Supple Cardiovascular: Yes: Regular Rate and Rhythm Respiratory: Yes: Regular, Diminished Gastrointestinal: Yes: Normal Bowel Sounds, Soft Edema: Yes Edema: LLE: 2+, RLE: 1+ Labs: CBC, BMP 02/25/17 05:35 02/25/17 05:35 INR, PTT INR 1.28 (0.82-1.09) H 02/15/17 06:00 Fibrinogen 668.0 mg/dL (238-498) H 02/15/17 06:00 - ....Imaging EKG: Report Reviewed (Tele: SR) Problem List - Problems (1) MSSA (methicillin susceptible Staphylococcus aureus) septicemia Code(s): A41.01 - SEPSIS DUE TO METHICILLIN SUSCEPTIBLE STAPHYLOCOCCUS AUREUS (2) Paroxysmal atrial fibrillation with RVR Code(s): I48.0 - PAROXYSMAL ATRIAL FIBRILLATION (3) Back pain Code(s): M54.9 - DORSALGIA, UNSPECIFIED Qualifiers: Back pain location: low back pain Chronicity: acute Back pain laterality: bilateral Sciatica presence: without sciatica Qualified Code(s): M54.5 - Low back pain (4) Thoracic aortic aneurysm without rupture Code(s): I71.2 - THORACIC AORTIC ANEURYSM, WITHOUT RUPTURE (5) Toxic metabolic encephalopathy Code(s): G92 - TOXIC ENCEPHALOPATHY (6) Osteomyelitis Code(s): M86.9 - OSTEOMYELITIS, UNSPECIFIED Qualifiers: Osteomyelitis type: acute hematogenous Osteomyelitis location: unspecified site Qualified Code(s): M86.00 - Acute hematogenous osteomyelitis, unspecified site (7) Epidural abscess Code(s): G06.2 - EXTRADURAL AND SUBDURAL ABSCESS, UNSPECIFIED (8) Septic discitis of lumbosacral region Code(s): M46.46 - DISCITIS, UNSPECIFIED, LUMBAR REGION Assessment/Plan 1. Improving MSSA bacteremia - septic discitis, osteomyelitis and epidural abscess lumbar spine with improving WBC 2. Paroxysmal atrial fibrillation [id number] of 2 with possible left foot thrombo-embolism vs septic emboli, PTT therapeutic 3. Acute on chronic exacerbation of diastolic failure, resolved 4. Thoracic aortic aneurysm 5. Toxic metabolic encephalopathy, resolved 6. ALBERTO and lactic acidosis, resolved 7. Thrombocytopenia due to sepsis, resolved 8. Acute on chronic diastolic failure improved PLAN: 1. Continue Cardizem CD 180 qd, hemodynamics permitting 2. Continue Lopressor 50 bid, hemodynamics permitting 3. Continue Heparin drip and if no intervention is planned recommend initiating NOAC's, considering patient has already had an embolic event ([id number] score is probably 4) 4. Ancef/ertapanem course as per the primary/ID teams
--- NOTE | 2017-02-25 13:28 | PN ---
Progress Note, Physician History of Present Illness: pulmonary awake,more confused today,-resp distress,+c/o back pain - Current Medication List Current Medications: Active Medications Acetaminophen (Tylenol -) 650 mg PO Q4H PRN PRN Reason: FEVER OR PAIN Last Admin: 02/25/17 11:42 Dose: 650 mg Acetaminophen (Tylenol -) 650 mg PO Q4H PRN PRN Reason: PAIN Last Admin: 02/22/17 20:21 Dose: 650 mg Albuterol Sulfate (Ventolin 0.083% Nebulizer Soln -) 1 amp NEB Q4H PRN PRN Reason: SHORT OF BREATH/WHEEZING Last Admin: 02/23/17 17:17 Dose: 1 amp Albuterol/Ipratropium (Duoneb -) 1 amp NEB TIDR [facility] Last Admin: 02/25/17 06:40 Dose: 1 amp Alprazolam (Xanax -) 0.25 mg PO Q6H PRN Last Admin: 02/23/17 22:25 Dose: 0.25 mg Amino Acids (Prosource No Carb Liquid Pkt) 30 ml PO BID@0800,1730 [facility] Last Admin: 02/25/17 08:39 Dose: 30 ml Bacitracin (Bacitracin -) 1 applic TP BID [facility] Last Admin: 02/25/17 09:38 Dose: 1 applic Diltiazem HCl (Cardizem Injection -) 10 mg IVPUSH Q4H PRN PRN Reason: TACHYCARDIA Last Admin: 02/13/17 12:13 Dose: 10 mg Diltiazem HCl (Cardizem Cd -) 180 mg PO DAILY [facility] Last Admin: 02/25/17 09:37 Dose: 180 mg Docusate Sodium (Colace -) 100 mg PO BID [facility] Last Admin: 02/25/17 09:37 Dose: 100 mg Gabapentin (Neurontin -) 100 mg PO TID [facility] Last Admin: 02/25/17 05:48 Dose: 100 mg Haloperidol (Haldol Injection (Fast Acting) -) 2 mg IM Q4H PRN PRN Reason: AGITATION Heparin Sodium (Porcine) (Heparin -) 1,000 unit IVPUSH PRN PRN PRN Reason: Heparin Last Admin: 02/21/17 17:35 Dose: 1,000 unit Heparin Sodium (Porcine) (Heparin -) 5,000 unit IVPUSH PRN PRN PRN Reason: Heparin Last Admin: 02/22/17 07:44 Dose: 5,000 unit Hydromorphone HCl (Dilaudid Injection -) 1 mg IVPB Q4H PRN PRN Reason: PAIN Last Admin: 02/17/17 22:22 Dose: 1 mg Heparin Sodium (Porcine) 25, (000 unit/ Sodium Chloride) 500 mls @ 20 mls/hr IV TITR [facility]; 1,000 UNIT/HR PRN Reason: Protocol Last Admin: 02/25/17 11:47 Dose: 51 mls/hr Cefazolin Sodium/Dextrose (Ancef 2 Gm Premixed Ivpb -) 50 mls @ 100 mls/hr IVPB Q8H-IV [facility] Last Admin: 02/25/17 09:37 Dose: 100 mls/hr Ertapenem 1 gm/ Sodium (Chloride) 50 mls @ 50 mls/hr IVPB DAILY [facility] PRN Reason: Protocol Last Admin: 02/25/17 09:37 Dose: 50 mls/hr Lidocaine (Lidoderm Patch -) 1 patch TP DAILY [facility] Last Admin: 02/25/17 09:38 Dose: 1 patch Metoprolol Tartrate (Lopressor Injection -) 5 mg IVPUSH Q4H PRN Last Admin: 02/16/17 05:48 Dose: 5 mg Metoprolol Tartrate (Lopressor -) 50 mg PO BID [facility] Last Admin: 02/25/17 09:37 Dose: 50 mg Miscellaneous (Lidoderm Patch Removal) 1 each MC DAILY@2200 [facility] Last Admin: 02/24/17 22:29 Dose: 1 each Montelukast Sodium (Singulair -) 10 mg PO HS [facility] Last Admin: 02/24/17 22:28 Dose: 10 mg Non-Formulary Medication (Fluticasone/Salmeterol [Advair Hfa 230-21 Mcg Inhaler] ) 1 inh PO BID [facility] Nystatin (Mycostatin Cream -) 1 applic TP BID [facility] Last Admin: 02/24/17 22:39 Dose: 1 applic Ondansetron HCl (Zofran Injection) 4 mg IVPB Q6H PRN PRN Reason: NAUSEA Oxycodone HCl (Roxicodone -) 5 mg PO Q4H PRN PRN Reason: PAIN Last Admin: 02/25/17 11:41 Dose: 5 mg Polyethylene Glycol (Miralax (For Daily Use) -) 17 gm PO BID [facility] Last Admin: 02/25/17 09:38 Dose: Not Given Saliva Substitute (Mouthkote Solution -) 1 applic MM DAILY [facility] Last Admin: 02/25/17 09:37 Dose: 1 applic Valacyclovir HCl (Valtrex -) 1,000 mg PO BID [facility] Last Admin: 02/25/17 09:37 Dose: 1,000 mg - Objective Vital Signs: Vital Signs Temperature 98.2 F 02/25/17 10:00 Pulse Rate 95 H 02/25/17 10:00 Respiratory Rate 18 02/25/17 10:00 Blood Pressure 143/84 02/25/17 10:00 O2 Sat by Pulse Oximetry (%) 94 L 02/25/17 09:16 Constitutional: Yes: Well Nourished, Calm, Other (confused) Eyes: Yes: WNL HENT: Yes: WNL Neck: Yes: WNL Cardiovascular: Yes: Pulse Irregular, S1, S2 Respiratory: Yes: Rhonchi (few scattered rhonchi) Gastrointestinal: Yes: Normal Bowel Sounds, Soft Extremities: Yes: WNL Edema: Yes Labs: CBC, BMP 02/25/17 05:35 02/25/17 05:35 INR, PTT INR 1.28 (0.82-1.09) H 02/15/17 06:00 Fibrinogen 668.0 mg/dL (238-498) H 02/15/17 06:00 Assessment/Plan Problem List - Problems (1) AAA (abdominal aortic aneurysm) without rupture Code(s): I71.4 - ABDOMINAL AORTIC ANEURYSM, WITHOUT RUPTURE (2) ALBERTO (acute kidney injury) Code(s): N17.9 - ACUTE KIDNEY FAILURE, UNSPECIFIED improved (3) Atrial fibrillation with rapid ventricular response Code(s): I48.91 - UNSPECIFIED ATRIAL FIBRILLATION (4) Back pain Code(s): M54.9 - DORSALGIA, UNSPECIFIED Qualifiers: Back pain location: low back pain Chronicity: acute Back pain laterality: bilateral Sciatica presence: without sciatica Qualified Code(s): M54.5 - Low back pain (5) Foot pain, left Code(s): M79.672 - PAIN IN LEFT FOOT (6) Hypotension Code(s): I95.9 - HYPOTENSION, UNSPECIFIED Qualifiers: Hypotension type: unspecified hypotension type Qualified Code(s): I95.9 - Hypotension, unspecified (7) MSSA (methicillin susceptible Staphylococcus aureus) septicemia Code(s): A41.01 - SEPSIS DUE TO METHICILLIN SUSCEPTIBLE STAPHYLOCOCCUS AUREUS (8) Paroxysmal atrial fibrillation with RVR Code(s): I48.0 - PAROXYSMAL ATRIAL FIBRILLATION (9) Sepsis Code(s): A41.9 - SEPSIS, UNSPECIFIED ORGANISM (10) Thoracic aortic aneurysm without rupture Code(s): I71.2 - THORACIC AORTIC ANEURYSM, WITHOUT RUPTURE Assessment/Plan O2 at maintain sat 90% continue ABX Per ID Inhaled bronchodilators AC with IV Heparin Strict I&O BD TX monitor wbc DR MARTE
[2017-02-25] MEDS: MONTELUKAST NA 10 MG TABLET PO SCH (22:47)
[2017-02-25] MEDS: ALPRAZolam 0.25 MG TABLET PO PRN (22:47)
[2017-02-25] MEDS: LIDOCAINE PATCH REMOVAL MC SCH (23:03)
[2017-02-26] MEDS ORDERED: PT OWN MED DRAWER 7, Y5N ONE ×2 (01:10→08:48)
[2017-02-26] MEDS: CEFAZOLIN 2 GM/D5W 50 ML IVPB SCH ×3 (01:50→17:32)
[2017-02-26] MEDS: ALBUTEROL SO4 2.5/IPRATROPIUM 0.5 INH SOL 3 ML VIAL.NEB. NEB SCH ×3 (06:36→22:40)
[2017-02-26] MEDS: HEPARIN - 25,000 UNIT in SODIUM CHLORIDE 495 ML IV SCH (06:59)
[2017-02-26] MEDS: GABAPENTIN 100 MG CAPSULE (FP) PO SCH ×3 (06:59→22:08)
[2017-02-26 07:32] LABS: MCH 33.5 pg (25.7-33.7); MCHC 32.9 g/dl (32.0-35.9); MEAN CELL VOLUME 101.7 fl (80-96); MEAN PLT VOLUME 8.3 fl (7.5-11.1); PLATELET COUNT 477 K/MM3 (134-434); WHITE BLOOD COUNT 13.6 K/mm3 (4.0-10.0)
[2017-02-26] MEDS: AMINO ACIDS/PROTEIN HYDROLYS 30 ML LIQUID.PKT PO SCH ×2 (08:31→17:32)
[2017-02-26] MEDS: oxyCODONE HCL 5 MG TABLET PO PRN ×2 (08:35→15:33)
[2017-02-26] MEDS: ACETAMINOPHEN 325 MG TABLET (FP) PO PRN ×2 (08:36→15:32)
[2017-02-26 08:55] LABS: ANISOCYTOSIS 1+; PLATELET ESTIMATE INCREASED (NORMAL)
[2017-02-26] MEDS: valACYclovir HCL 500 MG TABLET (FP) PO SCH ×2 (09:11→22:23)
[2017-02-26] MEDS: METOPROLOL TARTRATE 50 MG TABLET (FP) PO SCH ×2 (09:11→22:08)
[2017-02-26] MEDS: LYTES/YERBA SANTA 240 ML BOTTLE MM SCH (09:11)
[2017-02-26] MEDS: ERTAPENEM SODIUM 1 GM in SODIUM CHLORIDE 50 ML IVPB SCH (09:11)
[2017-02-26] MEDS: LIDOCAINE 5% TOPICAL PATCH TP SCH (09:12)
[2017-02-26] MEDS: BACITRACIN 30 GM TUBE TOPICAL OINTMENT TP SCH ×2 (09:12→22:13)
[2017-02-26] MEDS: DOCUSATE SODIUM 100 MG CAPSULE (FP) PO SCH ×2 (09:12→22:05)
[2017-02-26] MEDS ORDERED: ZOLPIDEM TARTRATE 5 MG TABLET PO PRN (09:21)
--- NOTE | 2017-02-26 09:21 | PN ---
Progress Note (short form) - Note Progress Note: NEUROSURGERY SOme LBP with movement PE: Tmax 99, AF, VSS Sleepy but easily arousable HEENT- NC/AT; Neck- supple; Cor- RR; Lungs- no wheezes; Abd- obese, benign; Ext - No sign of DVT except mild chronic B edema CN- intact; Motor- 4+/5 B UE/LE except L IP/Quad/EHL/TA/gastroc/inv/ev 4 ( chronic); Sensation- diminished LT L L4-5 WBC 13.6 MSSA on blood culture + 1/2 from 02/14; 02-16 specimen + 1/2 MSSA; 6-3 cultures 1 /2 +; Blood cultures 6-5 and 6-6 no growth L4-5 spondylolisthesis with stenosis and mechanical LBP and chronic L L4-5 radiculopathy L4-5 discitis/osteomyelitis with anterior epidural soft tissue infection Clinically stable On combination iv abx tx (cefazolin and ertepenem) per ID Medical tx only
[2017-02-26 09:30] LABS: ERYTHROCYTE SEDIMENTATION RATE > 130 mm/hr (0-20)
--- NOTE | 2017-02-26 10:08 | PN ---
Progress Note, Physician History of Present Illness: Notes back pain that comes and goes, but leg pain feeling OK. No fevers overnight. Notes unable to sleep at night, would like something for sleep. - Current Medication List Current Medications: Active Medications Acetaminophen (Tylenol -) 650 mg PO Q4H PRN PRN Reason: FEVER OR PAIN Last Admin: 02/26/17 08:36 Dose: 650 mg Acetaminophen (Tylenol -) 650 mg PO Q4H PRN PRN Reason: PAIN Last Admin: 02/22/17 20:21 Dose: 650 mg Albuterol Sulfate (Ventolin 0.083% Nebulizer Soln -) 1 amp NEB Q4H PRN PRN Reason: SHORT OF BREATH/WHEEZING Last Admin: 02/23/17 17:17 Dose: 1 amp Albuterol/Ipratropium (Duoneb -) 1 amp NEB TIDR [facility] Last Admin: 02/26/17 06:36 Dose: 1 amp Alprazolam (Xanax -) 0.25 mg PO Q6H PRN Last Admin: 02/25/17 22:47 Dose: 0.25 mg Amino Acids (Prosource No Carb Liquid Pkt) 30 ml PO BID@0800,1730 [facility] Last Admin: 02/26/17 08:31 Dose: 30 ml Bacitracin (Bacitracin -) 1 applic TP BID [facility] Last Admin: 02/26/17 09:12 Dose: 1 applic Diltiazem HCl (Cardizem Injection -) 10 mg IVPUSH Q4H PRN PRN Reason: TACHYCARDIA Last Admin: 02/13/17 12:13 Dose: 10 mg Diltiazem HCl (Cardizem Cd -) 180 mg PO DAILY [facility] Last Admin: 02/26/17 09:11 Dose: 180 mg Docusate Sodium (Colace -) 100 mg PO BID [facility] Last Admin: 02/26/17 09:12 Dose: 100 mg Gabapentin (Neurontin -) 100 mg PO TID [facility] Last Admin: 02/26/17 06:59 Dose: Not Given Haloperidol (Haldol Injection (Fast Acting) -) 2 mg IM Q4H PRN PRN Reason: AGITATION Heparin Sodium (Porcine) (Heparin -) 1,000 unit IVPUSH PRN PRN PRN Reason: Heparin Last Admin: 02/21/17 17:35 Dose: 1,000 unit Heparin Sodium (Porcine) (Heparin -) 5,000 unit IVPUSH PRN PRN PRN Reason: Heparin Last Admin: 02/22/17 07:44 Dose: 5,000 unit Hydromorphone HCl (Dilaudid Injection -) 1 mg IVPB Q4H PRN PRN Reason: PAIN Last Admin: 02/17/17 22:22 Dose: 1 mg Heparin Sodium (Porcine) 25, (000 unit/ Sodium Chloride) 500 mls @ 20 mls/hr IV TITR [facility]; 1,000 UNIT/HR PRN Reason: Protocol Last Admin: 02/26/17 06:59 Dose: Not Given Cefazolin Sodium/Dextrose (Ancef 2 Gm Premixed Ivpb -) 50 mls @ 100 mls/hr IVPB Q8H-IV [facility] Last Admin: 02/26/17 09:12 Dose: 100 mls/hr Ertapenem 1 gm/ Sodium (Chloride) 50 mls @ 50 mls/hr IVPB DAILY [facility] PRN Reason: Protocol Last Admin: 02/26/17 09:11 Dose: 50 mls/hr Lidocaine (Lidoderm Patch -) 1 patch TP DAILY [facility] Last Admin: 02/26/17 09:12 Dose: 1 patch Metoprolol Tartrate (Lopressor Injection -) 5 mg IVPUSH Q4H PRN Last Admin: 02/16/17 05:48 Dose: 5 mg Metoprolol Tartrate (Lopressor -) 50 mg PO BID [facility] Last Admin: 02/26/17 09:11 Dose: 50 mg Miscellaneous (Lidoderm Patch Removal) 1 each MC DAILY@2200 [facility] Last Admin: 02/25/17 23:03 Dose: 1 each Montelukast Sodium (Singulair -) 10 mg PO HS [facility] Last Admin: 02/25/17 22:47 Dose: 10 mg Nystatin (Mycostatin Cream -) 1 applic TP BID [facility] Last Admin: 02/25/17 23:03 Dose: 1 applic Ondansetron HCl (Zofran Injection) 4 mg IVPB Q6H PRN PRN Reason: NAUSEA Oxycodone HCl (Roxicodone -) 5 mg PO Q4H PRN PRN Reason: PAIN Last Admin: 02/26/17 08:35 Dose: 5 mg Polyethylene Glycol (Miralax (For Daily Use) -) 17 gm PO BID [facility] Last Admin: 02/25/17 23:03 Dose: 17 gm Saliva Substitute (Mouthkote Solution -) 1 applic MM DAILY [facility] Last Admin: 02/26/17 09:11 Dose: 1 applic Valacyclovir HCl (Valtrex -) 1,000 mg PO BID [facility] Last Admin: 02/26/17 09:11 Dose: 1,000 mg Zolpidem Tartrate (Ambien -) 5 mg PO HS PRN PRN Reason: INSOMNIA - Objective Vital Signs: Vital Signs Temperature 97.5 F L 02/26/17 06:21 Pulse Rate 77 02/26/17 06:21 Respiratory Rate 18 02/26/17 06:21 Blood Pressure 140/71 02/26/17 06:21 O2 Sat by Pulse Oximetry (%) 94 L 02/25/17 21:42 Constitutional: Yes: No Distress, Calm Neck: Yes: Supple, Trachea Midline Cardiovascular: Yes: Regular Rate and Rhythm, Murmur, S1, S2 Respiratory: Yes: Regular, CTA Bilaterally. No: Rales, Rhonchi, Wheezes Gastrointestinal: Yes: Normal Bowel Sounds, Soft. 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
[2017-02-26] MEDS: POLYETHYLENE GLYCOL 3350 119 GM BTL PO SCH ×2 (11:26→22:05)
[2017-02-26] MEDS: HYDROmorphone HCL CARPU-JECT 1 MG/1 ML DISP.SYRIN IVPB PRN (11:47)
--- NOTE | 2017-02-26 11:58 | PN ---
Progress Note (short form) - Note Progress Note: Chief Complaint: Events noted, notes reviewed, denies any chest pain or dyspnea , complaining of weakness and joint and muscle stiffness History of Present Illness: Seen and examined on telemetry. Events noted, notes reviewed, denies any chest pain or dyspnea, complaining of weakness and joint and muscle stiffness Since no additional intervention is planned recommend transitioning to NOAC's from Heparin discussed with the primary team, Dr. Prem Nieves - Current Medication List Current Medications Acetaminophen (Tylenol -) 650 mg PO Q4H PRN PRN Reason: FEVER OR PAIN Last Admin: 02/26/17 08:36 Dose: 650 mg Acetaminophen (Tylenol -) 650 mg PO Q4H PRN PRN Reason: PAIN Last Admin: 02/22/17 20:21 Dose: 650 mg Albuterol Sulfate (Ventolin 0.083% Nebulizer Soln -) 1 amp NEB Q4H PRN PRN Reason: SHORT OF BREATH/WHEEZING Last Admin: 02/23/17 17:17 Dose: 1 amp Albuterol/Ipratropium (Duoneb -) 1 amp NEB TIDR [facility] Last Admin: 02/26/17 06:36 Dose: 1 amp Alprazolam (Xanax -) 0.25 mg PO Q6H PRN Last Admin: 02/25/17 22:47 Dose: 0.25 mg Amino Acids (Prosource No Carb Liquid Pkt) 30 ml PO BID@0800,1730 [facility] Last Admin: 02/26/17 08:31 Dose: 30 ml Bacitracin (Bacitracin -) 1 applic TP BID [facility] Last Admin: 02/26/17 09:12 Dose: 1 applic Diltiazem HCl (Cardizem Injection -) 10 mg IVPUSH Q4H PRN PRN Reason: TACHYCARDIA Last Admin: 02/13/17 12:13 Dose: 10 mg Diltiazem HCl (Cardizem Cd -) 180 mg PO DAILY [facility] Last Admin: 02/26/17 09:11 Dose: 180 mg Docusate Sodium (Colace -) 100 mg PO BID [facility] Last Admin: 02/26/17 09:12 Dose: 100 mg Gabapentin (Neurontin -) 100 mg PO TID [facility] Last Admin: 02/26/17 06:59 Dose: Not Given Haloperidol (Haldol Injection (Fast Acting) -) 2 mg IM Q4H PRN PRN Reason: AGITATION Heparin Sodium (Porcine) (Heparin -) 1,000 unit IVPUSH PRN PRN PRN Reason: Heparin Last Admin: 02/21/17 17:35 Dose: 1,000 unit Heparin Sodium (Porcine) (Heparin -) 5,000 unit IVPUSH PRN PRN PRN Reason: Heparin Last Admin: 02/22/17 07:44 Dose: 5,000 unit Hydromorphone HCl (Dilaudid Injection -) 1 mg IVPB Q4H PRN PRN Reason: PAIN Last Admin: 02/26/17 11:47 Dose: 1 mg Heparin Sodium (Porcine) 25, (000 unit/ Sodium Chloride) 500 mls @ 20 mls/hr IV TITR [facility]; 1,000 UNIT/HR PRN Reason: Protocol Last Admin: 02/26/17 06:59 Dose: Not Given Cefazolin Sodium/Dextrose (Ancef 2 Gm Premixed Ivpb -) 50 mls @ 100 mls/hr IVPB Q8H-IV [facility] Last Admin: 02/26/17 09:12 Dose: 100 mls/hr Ertapenem 1 gm/ Sodium (Chloride) 50 mls @ 50 mls/hr IVPB DAILY [facility] PRN Reason: Protocol Last Admin: 02/26/17 09:11 Dose: 50 mls/hr Lidocaine (Lidoderm Patch -) 1 patch TP DAILY [facility] Last Admin: 02/26/17 09:12 Dose: 1 patch Metoprolol Tartrate (Lopressor Injection -) 5 mg IVPUSH Q4H PRN Last Admin: 02/16/17 05:48 Dose: 5 mg Metoprolol Tartrate (Lopressor -) 50 mg PO BID [facility] Last Admin: 02/26/17 09:11 Dose: 50 mg Miscellaneous (Lidoderm Patch Removal) 1 each MC DAILY@2200 [facility] Last Admin: 02/25/17 23:03 Dose: 1 each Montelukast Sodium (Singulair -) 10 mg PO HS [facility] Last Admin: 02/25/17 22:47 Dose: 10 mg Nystatin (Mycostatin Cream -) 1 applic TP BID [facility] Last Admin: 02/25/17 23:03 Dose: 1 applic Ondansetron HCl (Zofran Injection) 4 mg IVPB Q6H PRN PRN Reason: NAUSEA Oxycodone HCl (Roxicodone -) 5 mg PO Q4H PRN PRN Reason: PAIN Last Admin: 02/26/17 08:35 Dose: 5 mg Polyethylene Glycol (Miralax (For Daily Use) -) 17 gm PO BID [facility] Last Admin: 02/26/17 11:26 Dose: Not Given Saliva Substitute (Mouthkote Solution -) 1 applic MM DAILY [facility] Last Admin: 02/26/17 09:11 Dose: 1 applic Valacyclovir HCl (Valtrex -) 1,000 mg PO BID [facility] Last Admin: 02/26/17 09:11 Dose: 1,000 mg Zolpidem Tartrate (Ambien -) 5 mg PO HS PRN PRN Reason: INSOMNIA Review of Systems Cardiovascular: As noted above Respiratory: denies: Cough or Sputum Production Gastrointestinal: denies: Nausea, Vomiting, Diarrhea, Constipation or Abdominal Discomfort Musculoskeletal: Back Pain Endocrine: No Symptoms Reported - Objective Vital Signs: Last Vital Signs Temp Pulse Resp BP Pulse Ox 97.5 F L 77 18 140/71 95 02/26/17 06:21 02/26/17 06:21 02/26/17 09:00 02/26/17 06:21 02/26/17 09:00 Neck: Supple Negative JVD Cardiovascular: S1 S2 Regular Rate and Rhythm Respiratory: Diminished Breath Sounds at the Bases Gastrointestinal: Soft Benign Normal Bowel Sounds Ext: Trace Edema Labs: CBC, BMP 02/26/17 06:00 02/25/17 05:35 Assessment/Plan ASSESSMENT: 1. Persistent MSSA bacteremia - septic discitis, osteomyelitis and epidural abscess lumbar spine 2. Paroxysmal atrial fibrillation [id number] of 24 with possible left foot thrombo-embolism vs septic emboli 3. Acute on chronic exacerbation of diastolic failure, improved 4. Thoracic aortic aneurysm 5. Toxic metabolic encephalopathy, resolved 6. ALBERTO and lactic acidosis, resolved 7. Thrombocytopenia due to sepsis, resolved PLAN: 1. Continue Cardizem CD, hemodynamics permitting 2. Continue Lopressor, hemodynamics permitting 3. Initiate Eliquis at 5 mg twice daily and D/C Heparin drip since no intervention is planned, considering patient has already had an embolic event [id number] score is probably 4 4. Continue antibiotic coverage as per the primary/ID teams Grayson Burkett MD
[2017-02-26] MEDS ORDERED: APIXABAN 5 MG TABLET PO SCH (13:30)
--- NOTE | 2017-02-26 13:52 | PN ---
Progress Note (short form) - Note Progress Note: PULMONARY Somnolent but arousable. Denies shortness of breath or chest pain. Last Vital Signs Temp Pulse Resp BP Pulse Ox 97.9 F 90 18 138/76 95 02/26/17 10:00 02/26/17 10:00 02/26/17 10:00 02/26/17 10:00 02/26/17 09:00 Gen: NAD at rest Heart: RRR Lung: distant breath sounds Abd: soft, nontender Ext: no edema CBC, BMP 02/26/17 06:00 02/25/17 05:35 Active Medications Acetaminophen (Tylenol -) 650 mg PO Q4H PRN PRN Reason: FEVER OR PAIN Last Admin: 02/26/17 08:36 Dose: 650 mg Acetaminophen (Tylenol -) 650 mg PO Q4H PRN PRN Reason: PAIN Last Admin: 02/22/17 20:21 Dose: 650 mg Albuterol Sulfate (Ventolin 0.083% Nebulizer Soln -) 1 amp NEB Q4H PRN PRN Reason: SHORT OF BREATH/WHEEZING Last Admin: 02/23/17 17:17 Dose: 1 amp Albuterol/Ipratropium (Duoneb -) 1 amp NEB TIDR [facility] Last Admin: 02/26/17 13:47 Dose: 1 amp Alprazolam (Xanax -) 0.25 mg PO Q6H PRN Last Admin: 02/25/17 22:47 Dose: 0.25 mg Amino Acids (Prosource No Carb Liquid Pkt) 30 ml PO BID@0800,1730 [facility] Last Admin: 02/26/17 08:31 Dose: 30 ml Apixaban (Eliquis -) 5 mg PO BID [facility] Bacitracin (Bacitracin -) 1 applic TP BID [facility] Last Admin: 02/26/17 09:12 Dose: 1 applic Diltiazem HCl (Cardizem Injection -) 10 mg IVPUSH Q4H PRN PRN Reason: TACHYCARDIA Last Admin: 02/13/17 12:13 Dose: 10 mg Diltiazem HCl (Cardizem Cd -) 180 mg PO DAILY [facility] Last Admin: 02/26/17 09:11 Dose: 180 mg Docusate Sodium (Colace -) 100 mg PO BID [facility] Last Admin: 02/26/17 09:12 Dose: 100 mg Gabapentin (Neurontin -) 100 mg PO TID [facility] Last Admin: 02/26/17 06:59 Dose: Not Given Haloperidol (Haldol Injection (Fast Acting) -) 2 mg IM Q4H PRN PRN Reason: AGITATION Heparin Sodium (Porcine) (Heparin -) 1,000 unit IVPUSH PRN PRN PRN Reason: Heparin Last Admin: 02/21/17 17:35 Dose: 1,000 unit Heparin Sodium (Porcine) (Heparin -) 5,000 unit IVPUSH PRN PRN PRN Reason: Heparin Last Admin: 02/22/17 07:44 Dose: 5,000 unit Hydromorphone HCl (Dilaudid Injection -) 1 mg IVPB Q4H PRN PRN Reason: PAIN Last Admin: 02/26/17 11:47 Dose: 1 mg Heparin Sodium (Porcine) 25, (000 unit/ Sodium Chloride) 500 mls @ 20 mls/hr IV TITR [facility]; 1,000 UNIT/HR PRN Reason: Protocol Last Admin: 02/26/17 06:59 Dose: Not Given Cefazolin Sodium/Dextrose (Ancef 2 Gm Premixed Ivpb -) 50 mls @ 100 mls/hr IVPB Q8H-IV [facility] Last Admin: 02/26/17 09:12 Dose: 100 mls/hr Ertapenem 1 gm/ Sodium (Chloride) 50 mls @ 50 mls/hr IVPB DAILY [facility] PRN Reason: Protocol Last Admin: 02/26/17 09:11 Dose: 50 mls/hr Lidocaine (Lidoderm Patch -) 1 patch TP DAILY [facility] Last Admin: 02/26/17 09:12 Dose: 1 patch Metoprolol Tartrate (Lopressor Injection -) 5 mg IVPUSH Q4H PRN Last Admin: 02/16/17 05:48 Dose: 5 mg Metoprolol Tartrate (Lopressor -) 50 mg PO BID [facility] Last Admin: 02/26/17 09:11 Dose: 50 mg Miscellaneous (Lidoderm Patch Removal) 1 each MC DAILY@2200 [facility] Last Admin: 02/25/17 23:03 Dose: 1 each Montelukast Sodium (Singulair -) 10 mg PO HS [facility] Last Admin: 02/25/17 22:47 Dose: 10 mg Nystatin (Mycostatin Cream -) 1 applic TP BID [facility] Last Admin: 02/25/17 23:03 Dose: 1 applic Ondansetron HCl (Zofran Injection) 4 mg IVPB Q6H PRN PRN Reason: NAUSEA Oxycodone HCl (Roxicodone -) 5 mg PO Q4H PRN PRN Reason: PAIN Last Admin: 02/26/17 08:35 Dose: 5 mg Polyethylene Glycol (Miralax (For Daily Use) -) 17 gm PO BID [facility] Last Admin: 02/26/17 11:26 Dose: Not Given Saliva Substitute (Mouthkote Solution -) 1 applic MM DAILY [facility] Last Admin: 02/26/17 09:11 Dose: 1 applic Valacyclovir HCl (Valtrex -) 1,000 mg PO BID [facility] Last Admin: 02/26/17 09:11 Dose: 1,000 mg Zolpidem Tartrate (Ambien -) 5 mg PO HS PRN PRN Reason: INSOMNIA A/P Altered Mental Status improving Toxic-Metabolic Encephalopathy resolving Persistent MSSA Bacteremia Sepsis Psoas Abscess Paroxysmal Atrial Fibrillation r/o Septic Emboli Acute Kidney Injury improving LV Diastolic Dysfunction - continue antibiotics - aspiration precuations - inhaled bronchodilators as needed - rate controlled - continue anticoagulation - minimize sedatives - aspiration precautions
--- NOTE | 2017-02-26 13:56 | CONSULT ---
Consult Consult Specialty:: Hematology-onclology Referred by:: Dr. Galeano Reason for Consultation:: Anemia, leucocytosis,thrombocytosis - History of Present Illness Chief Complaint: MSSA bacteremia , possible endocarditis - History Source History Provided By: Medical Record Limitations to Obtaining History: No Limitations - Past Medical History Cardio/Vascular: Yes: HTN Pulmonary: Yes: COPD Infectious Disease: Yes: Other (MSSA, discitis) - Past Surgical History Past Surgical History: Yes: Hernia Repair - Alcohol/Substance Use Hx Alcohol Use: No History of Substance Use: reports: None - Smoking History Smoking history: Never smoked - Social History Usual Living Arrangement: With Spouse (lives in house with , 2 steps to enter and 1 step inside) ADL: Independent History of Recent Travel: Yes (as above) Home Medications - Allergies Allergies/Adverse Reactions: Allergies Allergy/AdvReac Type Severity Reaction Status Date / Time aloe Allergy Verified 02/10/17 22:58 aloe vera Allergy Verified 02/10/17 22:58 - Home Medications Home Medications: Ambulatory Orders Atenolol [Tenormin -] 50 mg PO DAILY 02/10/17 Diltiazem HCl [Diltiazem 24Hr Cd] 300 mg PO DAILY 02/10/17 Fluticasone/Salmeterol [Advair Hfa 230-21 Mcg Inhaler] 1 inh PO BID 02/10/17 Losartan/Hydrochlorothiazide [Hyzaar 50-12.5 Tablet] 2 each PO BID 02/10/17 Montelukast Na [Singulair -] 10 mg PO DAILY 02/10/17 Review of Systems - Review of Systems Constitutional: reports: Lethargy, Loss of Appetite, Weakness Eyes: denies: Blind Spots, Double Vision, Eye Pain HENT: denies: Epistaxis, Hearing Loss, Nasal Congestion, Throat Pain Neck: denies: Pain on Movement, Stiffness, Tenderness Cardiovascular: denies: Chest Pain, Shortness of Breath Respiratory: denies: SOB, SOB on Exertion Gastrointestinal: denies: Constipation, Diarrhea, Melena, Nausea, Vomiting Genitourinary: denies: Dysuria, Flank Pain Musculoskeletal: reports: Back Pain Integumentary: denies: Eczema, Erythema Neurological: reports: Weakness Endocrine: reports: No Symptoms Hematology/Lymphatic: denies: Easily Bruised, Excessive Bleeding, Swollen Glands Psychiatric: reports: No Symptoms Physical Exam Vital Signs: Vital Signs Temperature 97.9 F 02/26/17 10:00 Pulse Rate 90 02/26/17 10:00 Respiratory Rate 18 02/26/17 10:00 Blood Pressure 138/76 02/26/17 10:00 O2 Sat by Pulse Oximetry (%) 95 02/26/17 09:00 Constitutional: Yes: Moderate Distress Eyes: Yes: PERRL. No: Ptosis, Sclera Icterus HENT: Yes: Normocephalic. No: Hoarseness, Thrush Neck: Yes: Trachea Midline. No: Lymphadenopathy, Tenderness Cardiovascular: Yes: Regular Rate and Rhythm Respiratory: Yes: Diminished Gastrointestinal: Yes: Normal Bowel Sounds, Soft. No: Hepatomegaly, Splenomegaly Renal/: No: CVA Tenderness - Left, CVA Tenderness - Right Musculoskeletal: Yes: Back Pain, Muscle Pain, Muscle Weakness Extremities: Yes: Other (scd). No: Calf Tenderness Edema: LLE: 2+, RLE: 2+ Integumentary: No: Erythema, Jaundice Neurological: Yes: Weakness ...Motor Strength: WNL Psychiatric: Yes: WNL Labs: CBC, BMP 02/26/17 06:00 02/25/17 05:35 Assessment/Plan Impression: MSSA bacteremia/probable endocarditis sepsis-improved psoas abscess discitis thrombocytopenia Anemia likely multifactorial - with chronic disease /reverse A/G ratio and with macrocytosis leucocytosis and thrombocytosis- likely reactive Plan: Screening tests, protein studies
[2017-02-26] MEDS: NYSTATIN 100,000 UNIT/GM TOPICAL CREAM 15 GM TUBE TP SCH ×2 (14:38→22:13)
[2017-02-26] MEDS: APIXABAN 5 MG TABLET PO SCH ×2 (14:38→22:08)
--- NOTE | 2017-02-26 16:38 | PN ---
Progress Note (short form) - Note Progress Note: no complaints Vital Signs Period Temp Pulse Resp BP Sys/Cat Pulse Ox Last 24 Hr 97.5 F-99.0 F 77-96 18-18 129-145/71-78 94-95 cor-rrr lungs clear abd soft,nt ext no edema CBC, BMP 02/26/17 06:00 02/25/17 05:35 Microbiology 02/21/17 10:30 Blood - Peripheral Venous Blood Culture - Final NO GROWTH AFTER 5 DAYS INCUBATION 02/21/17 10:42 Blood - Peripheral Venous Blood Culture - Final NO GROWTH AFTER 5 DAYS INCUBATION 02/22/17 10:44 Blood - Peripheral Venous Blood Culture - Preliminary NO GROWTH OBTAINED AFTER 96 HOURS, INCUBATION TO CONTINUE FOR 1 DAYS. 02/22/17 10:32 Blood - Peripheral Venous Blood Culture - Preliminary NO GROWTH OBTAINED AFTER 96 HOURS, INCUBATION TO CONTINUE FOR 1 DAYS. Current Medications Acetaminophen (Tylenol -) 650 mg PO Q4H PRN PRN Reason: FEVER OR PAIN Last Admin: 02/26/17 15:32 Dose: 650 mg Acetaminophen (Tylenol -) 650 mg PO Q4H PRN PRN Reason: PAIN Last Admin: 02/22/17 20:21 Dose: 650 mg Albuterol Sulfate (Ventolin 0.083% Nebulizer Soln -) 1 amp NEB Q4H PRN PRN Reason: SHORT OF BREATH/WHEEZING Last Admin: 02/23/17 17:17 Dose: 1 amp Albuterol/Ipratropium (Duoneb -) 1 amp NEB TIDR [facility] Last Admin: 02/26/17 13:47 Dose: 1 amp Alprazolam (Xanax -) 0.25 mg PO Q6H PRN Last Admin: 02/25/17 22:47 Dose: 0.25 mg Amino Acids (Prosource No Carb Liquid Pkt) 30 ml PO BID@0800,1730 [facility] Last Admin: 02/26/17 08:31 Dose: 30 ml Apixaban (Eliquis -) 5 mg PO BID [facility] Last Admin: 02/26/17 14:38 Dose: 5 mg Bacitracin (Bacitracin -) 1 applic TP BID [facility] Last Admin: 02/26/17 09:12 Dose: 1 applic Diltiazem HCl (Cardizem Injection -) 10 mg IVPUSH Q4H PRN PRN Reason: TACHYCARDIA Last Admin: 02/13/17 12:13 Dose: 10 mg Diltiazem HCl (Cardizem Cd -) 180 mg PO DAILY [facility] Last Admin: 02/26/17 09:11 Dose: 180 mg Docusate Sodium (Colace -) 100 mg PO BID [facility] Last Admin: 02/26/17 09:12 Dose: 100 mg Gabapentin (Neurontin -) 100 mg PO TID [facility] Last Admin: 02/26/17 14:38 Dose: 100 mg Haloperidol (Haldol Injection (Fast Acting) -) 2 mg IM Q4H PRN PRN Reason: AGITATION Heparin Sodium (Porcine) (Heparin -) 1,000 unit IVPUSH PRN PRN PRN Reason: Heparin Stop: 02/26/17 18:00 Last Admin: 02/21/17 17:35 Dose: 1,000 unit Heparin Sodium (Porcine) (Heparin -) 5,000 unit IVPUSH PRN PRN PRN Reason: Heparin Stop: 02/26/17 18:00 Last Admin: 02/22/17 07:44 Dose: 5,000 unit Hydromorphone HCl (Dilaudid Injection -) 1 mg IVPB Q4H PRN PRN Reason: PAIN Last Admin: 02/26/17 11:47 Dose: 1 mg Heparin Sodium (Porcine) 25, (000 unit/ Sodium Chloride) 500 mls @ 20 mls/hr IV TITR [facility]; 1,000 UNIT/HR PRN Reason: Protocol Stop: 02/26/17 18:00 Last Admin: 02/26/17 06:59 Dose: Not Given Cefazolin Sodium/Dextrose (Ancef 2 Gm Premixed Ivpb -) 50 mls @ 100 mls/hr IVPB Q8H-IV [facility] Last Admin: 02/26/17 09:12 Dose: 100 mls/hr Ertapenem 1 gm/ Sodium (Chloride) 50 mls @ 50 mls/hr IVPB DAILY [facility] PRN Reason: Protocol Last Admin: 02/26/17 09:11 Dose: 50 mls/hr Lidocaine (Lidoderm Patch -) 1 patch TP DAILY [facility] Last Admin: 02/26/17 09:12 Dose: 1 patch Metoprolol Tartrate (Lopressor Injection -) 5 mg IVPUSH Q4H PRN Last Admin: 02/16/17 05:48 Dose: 5 mg Metoprolol Tartrate (Lopressor -) 50 mg PO BID [facility] Last Admin: 02/26/17 09:11 Dose: 50 mg Miscellaneous (Lidoderm Patch Removal) 1 each MC DAILY@2200 [facility] Last Admin: 02/25/17 23:03 Dose: 1 each Montelukast Sodium (Singulair -) 10 mg PO HS [facility] Last Admin: 02/25/17 22:47 Dose: 10 mg Nystatin (Mycostatin Cream -) 1 applic TP BID [facility] Last Admin: 02/26/17 14:38 Dose: 1 applic Ondansetron HCl (Zofran Injection) 4 mg IVPB Q6H PRN PRN Reason: NAUSEA Oxycodone HCl (Roxicodone -) 5 mg PO Q4H PRN PRN Reason: PAIN Last Admin: 02/26/17 15:33 Dose: 5 mg Polyethylene Glycol (Miralax (For Daily Use) -) 17 gm PO BID [facility] Last Admin: 02/26/17 11:26 Dose: Not Given Saliva Substitute (Mouthkote Solution -) 1 applic MM DAILY [facility] Last Admin: 02/26/17 09:11 Dose: 1 applic Valacyclovir HCl (Valtrex -) 1,000 mg PO BID [facility] Last Admin: 02/26/17 09:11 Dose: 1,000 mg Zolpidem Tartrate (Ambien -) 5 mg PO HS PRN PRN Reason: INSOMNIA a/p MSSA bacteremia iliopsoas abscesses/phlegmon L4-5 discitis/osteomyelitis continue cefazolin/ertapenem repeat bloood cultures 02/21 and 02/22 are negative repeat crp -
[2017-02-26] MEDS: MONTELUKAST NA 10 MG TABLET PO SCH (22:08)
[2017-02-26] MEDS: ALPRAZolam 0.25 MG TABLET PO PRN (22:08)
[2017-02-26] MEDS: LIDOCAINE PATCH REMOVAL MC SCH (22:09)
[2017-02-27] MEDS ORDERED: PT OWN MED DRAWER 7, Y5N ONE ×3 (01:40→09:28)
[2017-02-27] MEDS: CEFAZOLIN 2 GM/D5W 50 ML IVPB SCH ×3 (01:50→17:20)
[2017-02-27] MEDS: oxyCODONE HCL 5 MG TABLET PO PRN ×2 (03:58→14:10)
[2017-02-27] MEDS: ACETAMINOPHEN 325 MG TABLET (FP) PO PRN ×2 (03:58→14:10)
[2017-02-27] MEDS: ALBUTEROL SO4 2.5/IPRATROPIUM 0.5 INH SOL 3 ML VIAL.NEB. NEB SCH ×3 (05:27→22:17)
[2017-02-27] MEDS: GABAPENTIN 100 MG CAPSULE (FP) PO SCH ×3 (05:57→22:50)
[2017-02-27 07:29] LABS: MCH 34.2 pg (25.7-33.7); MCHC 33.7 g/dl (32.0-35.9); MEAN CELL VOLUME 101.7 fl (80-96); MEAN PLT VOLUME 7.8 fl (7.5-11.1); PLATELET COUNT 469 K/MM3 (134-434); WHITE BLOOD COUNT 12.9 K/mm3 (4.0-10.0)
[2017-02-27 08:28] LABS: METAMYELOCYTE 2 % (0-2)
[2017-02-27 08:29] LABS: PLATELET ESTIMATE SLT INCREASED (NORMAL)
[2017-02-27 08:45] LABS: ALBUMIN 1.4 g/dl (3.4-5.0); ALK PHOS 75 U/L (45-117); ANION GAP 5 (8-16); BILIRUBIN,TOTAL 0.4 mg/dL (0.2-1.0); C-REACTIVE PROTEIN 23.3 MG/DL (0.00-0.3); CALCIUM 8.4 mg/dL (8.5-10.1); CO2 34 mmol/L (21-32); COCKROFT - GAULT 131.71; CREATININE 0.6 mg/dL (0.7-1.3); GLUCOSE,RANDOM 87 mg/dL (74-106); LDH 152 U/L (87-241); SGOT/AST 15 U/L (15-37); SGPT/ALT < 6 U/L (12-78); THYROID STIMULATING HORMONE 2.95 uIU/ml (0.358-3.74); TOT PROT 6.6 g/dl (6.4-8.2)
[2017-02-27] MEDS: AMINO ACIDS/PROTEIN HYDROLYS 30 ML LIQUID.PKT PO SCH ×2 (08:54→17:20)
[2017-02-27] MEDS: METOPROLOL TARTRATE 50 MG TABLET (FP) PO SCH ×2 (09:13→22:50)
[2017-02-27] MEDS: valACYclovir HCL 500 MG TABLET (FP) PO SCH ×2 (09:13→22:50)
[2017-02-27] MEDS: APIXABAN 5 MG TABLET PO SCH ×2 (09:13→22:51)
[2017-02-27] MEDS: LYTES/YERBA SANTA 240 ML BOTTLE MM SCH (09:14)
[2017-02-27] MEDS: BACITRACIN 30 GM TUBE TOPICAL OINTMENT TP SCH ×2 (09:14→22:49)
[2017-02-27] MEDS: LIDOCAINE 5% TOPICAL PATCH TP SCH (09:14)
[2017-02-27] MEDS: POLYETHYLENE GLYCOL 3350 119 GM BTL PO SCH ×2 (09:14→22:50)
[2017-02-27] MEDS: DOCUSATE SODIUM 100 MG CAPSULE (FP) PO SCH ×2 (09:14→22:49)
[2017-02-27] MEDS: NYSTATIN 100,000 UNIT/GM TOPICAL CREAM 15 GM TUBE TP SCH ×2 (09:15→22:51)
--- NOTE | 2017-02-27 09:56 | PN ---
Progress Note (short form) - Note Progress Note: Chief Complaint: Events noted, notes reviewed, denies any chest pain or dyspnea , complaining of persistent weakness and joint and muscle stiffness History of Present Illness: Seen and examined on telemetry. Events noted, notes reviewed, denies any chest pain or dyspnea, complaining of persistent weakness and joint and muscle stiffness NOAC's therapy initiated since no intervention is planned - Current Medication List Current Medications Acetaminophen (Tylenol -) 650 mg PO Q4H PRN PRN Reason: FEVER OR PAIN Last Admin: 02/27/17 03:58 Dose: 650 mg Acetaminophen (Tylenol -) 650 mg PO Q4H PRN PRN Reason: PAIN Last Admin: 02/22/17 20:21 Dose: 650 mg Albuterol Sulfate (Ventolin 0.083% Nebulizer Soln -) 1 amp NEB Q4H PRN PRN Reason: SHORT OF BREATH/WHEEZING Last Admin: 02/23/17 17:17 Dose: 1 amp Albuterol/Ipratropium (Duoneb -) 1 amp NEB TIDR [facility] Last Admin: 02/27/17 05:27 Dose: 1 amp Alprazolam (Xanax -) 0.25 mg PO Q6H PRN Last Admin: 02/26/17 22:08 Dose: 0.25 mg Amino Acids (Prosource No Carb Liquid Pkt) 30 ml PO BID@0800,1730 [facility] Last Admin: 02/27/17 08:54 Dose: 30 ml Apixaban (Eliquis -) 5 mg PO BID [facility] Last Admin: 02/27/17 09:13 Dose: 5 mg Bacitracin (Bacitracin -) 1 applic TP BID [facility] Last Admin: 02/27/17 09:14 Dose: 1 applic Diltiazem HCl (Cardizem Injection -) 10 mg IVPUSH Q4H PRN PRN Reason: TACHYCARDIA Last Admin: 02/13/17 12:13 Dose: 10 mg Diltiazem HCl (Cardizem Cd -) 180 mg PO DAILY [facility] Last Admin: 02/27/17 09:14 Dose: 180 mg Docusate Sodium (Colace -) 100 mg PO BID [facility] Last Admin: 02/27/17 09:14 Dose: Not Given Gabapentin (Neurontin -) 100 mg PO TID [facility] Last Admin: 02/27/17 05:57 Dose: 100 mg Haloperidol (Haldol Injection (Fast Acting) -) 2 mg IM Q4H PRN PRN Reason: AGITATION Hydromorphone HCl (Dilaudid Injection -) 1 mg IVPB Q4H PRN PRN Reason: PAIN Last Admin: 02/26/17 11:47 Dose: 1 mg Cefazolin Sodium/Dextrose (Ancef 2 Gm Premixed Ivpb -) 50 mls @ 100 mls/hr IVPB Q8H-IV [facility] Last Admin: 02/27/17 01:50 Dose: 100 mls/hr Ertapenem 1 gm/ Sodium (Chloride) 50 mls @ 50 mls/hr IVPB DAILY [facility] PRN Reason: Protocol Last Admin: 02/26/17 09:11 Dose: 50 mls/hr Lidocaine (Lidoderm Patch -) 1 patch TP DAILY [facility] Last Admin: 02/27/17 09:14 Dose: 1 patch Metoprolol Tartrate (Lopressor Injection -) 5 mg IVPUSH Q4H PRN Last Admin: 02/16/17 05:48 Dose: 5 mg Metoprolol Tartrate (Lopressor -) 50 mg PO BID [facility] Last Admin: 02/27/17 09:13 Dose: 50 mg Miscellaneous (Lidoderm Patch Removal) 1 each MC DAILY@2200 [facility] Last Admin: 02/26/17 22:09 Dose: 1 each Montelukast Sodium (Singulair -) 10 mg PO HS [facility] Last Admin: 02/26/17 22:08 Dose: 10 mg Nystatin (Mycostatin Cream -) 1 applic TP BID [facility] Last Admin: 02/27/17 09:15 Dose: 1 applic Ondansetron HCl (Zofran Injection) 4 mg IVPB Q6H PRN PRN Reason: NAUSEA Oxycodone HCl (Roxicodone -) 5 mg PO Q4H PRN PRN Reason: PAIN Last Admin: 02/27/17 03:58 Dose: 5 mg Polyethylene Glycol (Miralax (For Daily Use) -) 17 gm PO BID [facility] Last Admin: 02/27/17 09:14 Dose: Not Given Saliva Substitute (Mouthkote Solution -) 1 applic MM DAILY [facility] Last Admin: 02/27/17 09:14 Dose: 1 applic Valacyclovir HCl (Valtrex -) 1,000 mg PO BID [facility] Last Admin: 02/27/17 09:13 Dose: 1,000 mg Zolpidem Tartrate (Ambien -) 5 mg PO HS PRN PRN Reason: INSOMNIA Review of Systems Cardiovascular: As noted above Respiratory: denies: Cough or Sputum Production Gastrointestinal: denies: Nausea, Vomiting, Diarrhea, Constipation or Abdominal Discomfort Musculoskeletal: Back Pain Endocrine: No Symptoms Reported - Objective Vital Signs: Last Vital Signs Temp Pulse Resp BP Pulse Ox 97.2 F L 99 H 18 149/77 92 L 02/27/17 05:52 02/27/17 05:52 02/27/17 05:52 02/27/17 05:52 02/26/17 21:00 Neck: Supple Negative JVD Cardiovascular: S1 S2 Regular Rate and Rhythm Respiratory: Diminished Breath Sounds at the Bases Gastrointestinal: Soft Benign Normal Bowel Sounds Ext: Trace to 1+ Edema Labs: CBC, BMP 02/27/17 07:15 02/27/17 07:15 INR, PTT INR 1.28 (0.82-1.09) H 02/15/17 06:00 Fibrinogen 668.0 mg/dL (238-498) H 02/15/17 06:00 Assessment/Plan ASSESSMENT: 1. MSSA bacteremia - septic discitis, osteomyelitis and epidural abscess lumbar spine 2. Paroxysmal atrial fibrillation [id number] of 4 with possible left foot thrombo-embolism vs septic emboli 3. Acute on chronic exacerbation of diastolic failure, improved 4. Thoracic aortic aneurysm 5. Toxic metabolic encephalopathy, resolved 6. ALBERTO and lactic acidosis, resolved 7. Thrombocytopenia due to sepsis, resolved PLAN: 1. Continue Cardizem CD, hemodynamics permitting 2. Continue Lopressor, hemodynamics permitting 3. Continue Eliquis with close monitoring of H/H 4. Continue antibiotic coverage as per the primary/ID teams Grayson Burkett MD
--- NOTE | 2017-02-27 10:16 | PN ---
Progress Note, Physician History of Present Illness: Was slightly confused this morning, but re-oriented (did not take Ambien last night). Feels a little frustrated at not being able to get up out of bed yet. Back pain still comes and goes, but leg pain is improved - Current Medication List Current Medications: Active Medications Acetaminophen (Tylenol -) 650 mg PO Q4H PRN PRN Reason: FEVER OR PAIN Last Admin: 02/27/17 03:58 Dose: 650 mg Acetaminophen (Tylenol -) 650 mg PO Q4H PRN PRN Reason: PAIN Last Admin: 02/22/17 20:21 Dose: 650 mg Albuterol Sulfate (Ventolin 0.083% Nebulizer Soln -) 1 amp NEB Q4H PRN PRN Reason: SHORT OF BREATH/WHEEZING Last Admin: 02/23/17 17:17 Dose: 1 amp Albuterol/Ipratropium (Duoneb -) 1 amp NEB TIDR [facility] Last Admin: 02/27/17 05:27 Dose: 1 amp Alprazolam (Xanax -) 0.25 mg PO Q6H PRN Last Admin: 02/26/17 22:08 Dose: 0.25 mg Amino Acids (Prosource No Carb Liquid Pkt) 30 ml PO BID@0800,1730 [facility] Last Admin: 02/27/17 08:54 Dose: 30 ml Apixaban (Eliquis -) 5 mg PO BID [facility] Last Admin: 02/27/17 09:13 Dose: 5 mg Bacitracin (Bacitracin -) 1 applic TP BID [facility] Last Admin: 02/27/17 09:14 Dose: 1 applic Diltiazem HCl (Cardizem Injection -) 10 mg IVPUSH Q4H PRN PRN Reason: TACHYCARDIA Last Admin: 02/13/17 12:13 Dose: 10 mg Diltiazem HCl (Cardizem Cd -) 180 mg PO DAILY [facility] Last Admin: 02/27/17 09:14 Dose: 180 mg Docusate Sodium (Colace -) 100 mg PO BID [facility] Last Admin: 02/27/17 09:14 Dose: Not Given Gabapentin (Neurontin -) 100 mg PO TID [facility] Last Admin: 02/27/17 05:57 Dose: 100 mg Haloperidol (Haldol Injection (Fast Acting) -) 2 mg IM Q4H PRN PRN Reason: AGITATION Hydromorphone HCl (Dilaudid Injection -) 1 mg IVPB Q4H PRN PRN Reason: PAIN Last Admin: 02/26/17 11:47 Dose: 1 mg Cefazolin Sodium/Dextrose (Ancef 2 Gm Premixed Ivpb -) 50 mls @ 100 mls/hr IVPB Q8H-IV [facility] Last Admin: 02/27/17 01:50 Dose: 100 mls/hr Ertapenem 1 gm/ Sodium (Chloride) 50 mls @ 50 mls/hr IVPB DAILY [facility] PRN Reason: Protocol Last Admin: 02/26/17 09:11 Dose: 50 mls/hr Lidocaine (Lidoderm Patch -) 1 patch TP DAILY [facility] Last Admin: 02/27/17 09:14 Dose: 1 patch Metoprolol Tartrate (Lopressor Injection -) 5 mg IVPUSH Q4H PRN Last Admin: 02/16/17 05:48 Dose: 5 mg Metoprolol Tartrate (Lopressor -) 50 mg PO BID [facility] Last Admin: 02/27/17 09:13 Dose: 50 mg Miscellaneous (Lidoderm Patch Removal) 1 each MC DAILY@2200 [facility] Last Admin: 02/26/17 22:09 Dose: 1 each Montelukast Sodium (Singulair -) 10 mg PO HS [facility] Last Admin: 02/26/17 22:08 Dose: 10 mg Nystatin (Mycostatin Cream -) 1 applic TP BID [facility] Last Admin: 02/27/17 09:15 Dose: 1 applic Ondansetron HCl (Zofran Injection) 4 mg IVPB Q6H PRN PRN Reason: NAUSEA Oxycodone HCl (Roxicodone -) 5 mg PO Q4H PRN PRN Reason: PAIN Last Admin: 02/27/17 03:58 Dose: 5 mg Polyethylene Glycol (Miralax (For Daily Use) -) 17 gm PO BID [facility] Last Admin: 02/27/17 09:14 Dose: Not Given Saliva Substitute (Mouthkote Solution -) 1 applic MM DAILY [facility] Last Admin: 02/27/17 09:14 Dose: 1 applic Valacyclovir HCl (Valtrex -) 1,000 mg PO BID [facility] Last Admin: 02/27/17 09:13 Dose: 1,000 mg Zolpidem Tartrate (Ambien -) 5 mg PO HS PRN PRN Reason: INSOMNIA - Objective Vital Signs: Vital Signs Temperature 97.2 F L 02/27/17 05:52 Pulse Rate 99 H 02/27/17 05:52 Respiratory Rate 18 02/27/17 05:52 Blood Pressure 149/77 02/27/17 05:52 O2 Sat by Pulse Oximetry (%) 92 L 02/26/17 21:00 Constitutional: Yes: No Distress, Calm Eyes: Yes: Conjunctiva Clear, EOM Intact Cardiovascular: Yes: Regular Rate and Rhythm, S1, S2. No: Murmur Respiratory: Yes: Regular, CTA Bilaterally. No: Rales, Rhonchi, Wheezes Gastrointestinal: Yes: Normal Bowel Sounds, Soft. No: Distention, Tenderness Edema: Yes Edema: LUE: Trace, RUE: Trace, LLE: Trace, RLE: Trace Neurological: Yes: Alert, Oriented Labs: CBC, BMP 02/27/17 07:15 02/27/17 07:15 INR, PTT INR 1.28 (0.82-1.09) H 02/15/17 06:00 Fibrinogen 668.0 mg/dL (238-498) H 02/15/17 06:00 Assessment/Plan Current Active Problems AAA (abdominal aortic aneurysm) without rupture (Acute) ALBERTO (acute kidney injury) (Acute) Anemia (Acute) Atrial fibrillation with rapid ventricular response (Acute) Back pain (Acute) Epidural abscess (Acute) Exogenous obesity (Acute) Foot pain, left (Acute) Hypokalemia (Acute) Hypotension (Acute) 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
[2017-02-27] MEDS: ERTAPENEM SODIUM 1 GM in SODIUM CHLORIDE 50 ML IVPB SCH (10:31)
--- NOTE | 2017-02-27 14:40 | PN ---
Progress Note (short form) - Note Progress Note: PULMONARY Denies shortness of breath or chest pain. Last Vital Signs Temp Pulse Resp BP Pulse Ox 99.4 F 82 20 156/78 95 02/27/17 13:41 02/27/17 13:41 02/27/17 13:41 02/27/17 13:41 02/27/17 09:00 Gen: NAD at rest Heart: RRR Lung: distant breath sounds Abd: soft, nontender Ext: no edema CBC, BMP 02/27/17 07:15 02/27/17 07:15 Active Medications Acetaminophen (Tylenol -) 650 mg PO Q4H PRN PRN Reason: FEVER OR PAIN Last Admin: 02/27/17 14:10 Dose: 650 mg Acetaminophen (Tylenol -) 650 mg PO Q4H PRN PRN Reason: PAIN Last Admin: 02/22/17 20:21 Dose: 650 mg Albuterol Sulfate (Ventolin 0.083% Nebulizer Soln -) 1 amp NEB Q4H PRN PRN Reason: SHORT OF BREATH/WHEEZING Last Admin: 02/23/17 17:17 Dose: 1 amp Albuterol/Ipratropium (Duoneb -) 1 amp NEB TIDR [facility] Last Admin: 02/27/17 05:27 Dose: 1 amp Alprazolam (Xanax -) 0.25 mg PO Q6H PRN Last Admin: 02/26/17 22:08 Dose: 0.25 mg Amino Acids (Prosource No Carb Liquid Pkt) 30 ml PO BID@0800,1730 [facility] [place] Last Admin: 02/27/17 08:54 Dose: 30 ml Apixaban (Eliquis -) 5 mg PO BID [facility] [place] Last Admin: 02/27/17 09:13 Dose: 5 mg Bacitracin (Bacitracin -) 1 applic TP BID [facility] [place] Last Admin: 02/27/17 09:14 Dose: 1 applic Diltiazem HCl (Cardizem Injection -) 10 mg IVPUSH Q4H PRN PRN Reason: TACHYCARDIA Last Admin: 02/13/17 12:13 Dose: 10 mg Diltiazem HCl (Cardizem Cd -) 180 mg PO DAILY [facility] [place] Last Admin: 02/27/17 09:14 Dose: 180 mg Docusate Sodium (Colace -) 100 mg PO BID [facility] [place] Last Admin: 02/27/17 09:14 Dose: Not Given Gabapentin (Neurontin -) 100 mg PO TID [facility] Last Admin: 02/27/17 14:10 Dose: 100 mg Haloperidol (Haldol Injection (Fast Acting) -) 2 mg IM Q4H PRN PRN Reason: AGITATION Hydromorphone HCl (Dilaudid Injection -) 1 mg IVPB Q4H PRN PRN Reason: PAIN Last Admin: 02/26/17 11:47 Dose: 1 mg Cefazolin Sodium/Dextrose (Ancef 2 Gm Premixed Ivpb -) 50 mls @ 100 mls/hr IVPB Q8H-IV [facility] Last Admin: 02/27/17 10:31 Dose: 100 mls/hr Ertapenem 1 gm/ Sodium (Chloride) 50 mls @ 50 mls/hr IVPB DAILY [facility] PRN Reason: Protocol Last Admin: 02/27/17 10:31 Dose: 50 mls/hr Lidocaine (Lidoderm Patch -) 1 patch TP DAILY [facility] [place] Last Admin: 02/27/17 09:14 Dose: 1 patch Metoprolol Tartrate (Lopressor Injection -) 5 mg IVPUSH Q4H PRN Last Admin: 02/16/17 05:48 Dose: 5 mg Metoprolol Tartrate (Lopressor -) 50 mg PO BID [facility] [place] Last Admin: 02/27/17 09:13 Dose: 50 mg Miscellaneous (Lidoderm Patch Removal) 1 each MC DAILY@2200 [facility] [place] Last Admin: 02/26/17 22:09 Dose: 1 each Montelukast Sodium (Singulair -) 10 mg PO HS [facility] [place] Last Admin: 02/26/17 22:08 Dose: 10 mg Nystatin (Mycostatin Cream -) 1 applic TP BID [facility] [place] Last Admin: 02/27/17 09:15 Dose: 1 applic Ondansetron HCl (Zofran Injection) 4 mg IVPB Q6H PRN PRN Reason: NAUSEA Oxycodone HCl (Roxicodone -) 5 mg PO Q4H PRN PRN Reason: PAIN Last Admin: 02/27/17 14:10 Dose: 5 mg Polyethylene Glycol (Miralax (For Daily Use) -) 17 gm PO BID [facility] [place] Last Admin: 02/27/17 09:14 Dose: Not Given Saliva Substitute (Mouthkote Solution -) 1 applic MM DAILY [facility] [place] Last Admin: 02/27/17 09:14 Dose: 1 applic Valacyclovir HCl (Valtrex -) 1,000 mg PO BID [facility] [place] Last Admin: 02/27/17 09:13 Dose: 1,000 mg A/P Altered Mental Status improving Toxic-Metabolic Encephalopathy resolving Persistent MSSA Bacteremia Sepsis Psoas Abscess Paroxysmal Atrial Fibrillation r/o Septic Emboli Acute Kidney Injury improving LV Diastolic Dysfunction - continue antibiotics - aspiration precautions - inhaled bronchodilators as needed - rate controlled - continue anticoagulation - minimize sedatives - aspiration precautions
[2017-02-27] MEDS: LIDOCAINE PATCH REMOVAL MC SCH (22:49)
[2017-02-27] MEDS: ALPRAZolam 0.25 MG TABLET PO PRN (22:50)
[2017-02-27] MEDS: MONTELUKAST NA 10 MG TABLET PO SCH (22:50)
[2017-02-28] MEDS: CEFAZOLIN 2 GM/D5W 50 ML IVPB SCH ×3 (01:44→18:10)
[2017-02-28] MEDS: GABAPENTIN 100 MG CAPSULE (FP) PO SCH ×3 (05:50→21:42)
[2017-02-28] MEDS: ALBUTEROL SO4 2.5/IPRATROPIUM 0.5 INH SOL 3 ML VIAL.NEB. NEB SCH ×3 (06:35→22:10)
[2017-02-28 07:29] LABS: MCHC 33.5 g/dl (32.0-35.9); MEAN CELL VOLUME 101.2 fl (80-96); MEAN PLT VOLUME 7.8 fl (7.5-11.1); PLATELET COUNT 454 K/MM3 (134-434); RDW 13.8 % (11.9-15.9); WHITE BLOOD COUNT 13.4 K/mm3 (4.0-10.0)
[2017-02-28 08:09] LABS: ALBUMIN 1.4 g/dl (3.4-5.0); ALK PHOS 68 U/L (45-117); ANION GAP 11 (8-16); BILIRUBIN,TOTAL 0.6 mg/dL (0.2-1.0); CALCIUM 8.6 mg/dL (8.5-10.1); CO2 31 mmol/L (21-32); COCKROFT - GAULT 131.71; CREATININE 0.6 mg/dL (0.7-1.3); GLUCOSE,RANDOM 91 mg/dL (74-106); SGOT/AST 16 U/L (15-37); SGPT/ALT < 6 U/L (12-78); TOT PROT 6.5 g/dl (6.4-8.2)
--- NOTE | 2017-02-28 08:21 | PN ---
Progress Note (short form) - Note Progress Note: NEUROSURGERY Some LBP and leg pain mostly with movement PE: Tmax 98.6, AF, VSS Awake/alert HEENT- NC/AT; Neck- supple; Cor- RR; Lungs- no wheezes; Abd- obese, benign; Ext - No sign of DVT except mild chronic B edema CN- intact; Motor- 4+/5 B UE/LE except L IP/Quad/EHL/TA/gastroc/inv/ev 4 ( chronic); Sensation- diminished LT L L4-5 WBC 13.4 Blood cultures 6-5 and 6-6 no growth L4-5 spondylolisthesis with stenosis and mechanical LBP and chronic L L4-5 radiculopathy L4-5 discitis/osteomyelitis with anterior epidural soft tissue infection Clinically stable On combination iv abx tx per ID Medical tx only
[2017-02-28] MEDS ORDERED: PT OWN MED DRAWER 7, Y5N ONE ×3 (08:57→19:23)
[2017-02-28] MEDS: AMINO ACIDS/PROTEIN HYDROLYS 30 ML LIQUID.PKT PO SCH ×2 (09:07→18:10)
[2017-02-28] MEDS: LIDOCAINE 5% TOPICAL PATCH TP SCH (09:07)
[2017-02-28] MEDS: LYTES/YERBA SANTA 240 ML BOTTLE MM SCH (09:07)
[2017-02-28] MEDS: METOPROLOL TARTRATE 50 MG TABLET (FP) PO SCH ×2 (09:08→21:43)
[2017-02-28] MEDS: valACYclovir HCL 500 MG TABLET (FP) PO SCH (09:08)
[2017-02-28] MEDS: APIXABAN 5 MG TABLET PO SCH (09:08)
[2017-02-28] MEDS: DOCUSATE SODIUM 100 MG CAPSULE (FP) PO SCH ×2 (09:08→21:43)
[2017-02-28 09:09] LABS: PLATELET ESTIMATE ADEQUATE (NORMAL)
[2017-02-28] MEDS: POLYETHYLENE GLYCOL 3350 119 GM BTL PO SCH ×2 (09:10→21:42)
[2017-02-28] MEDS: BACITRACIN 30 GM TUBE TOPICAL OINTMENT TP SCH ×2 (09:10→21:44)
[2017-02-28] MEDS: NYSTATIN 100,000 UNIT/GM TOPICAL CREAM 15 GM TUBE TP SCH ×2 (09:11→21:45)
--- NOTE | 2017-02-28 09:58 | PN ---
Progress Note, Physician History of Present Illness: Sensorium improving, LBP improved, remains afebrile. - Current Medication List Current Medications: Active Medications Acetaminophen (Tylenol -) 650 mg PO Q4H PRN PRN Reason: FEVER OR PAIN Last Admin: 02/27/17 14:10 Dose: 650 mg Acetaminophen (Tylenol -) 650 mg PO Q4H PRN PRN Reason: PAIN Last Admin: 02/22/17 20:21 Dose: 650 mg Albuterol Sulfate (Ventolin 0.083% Nebulizer Soln -) 1 amp NEB Q4H PRN PRN Reason: SHORT OF BREATH/WHEEZING Last Admin: 02/23/17 17:17 Dose: 1 amp Albuterol/Ipratropium (Duoneb -) 1 amp NEB TIDR [facility] Last Admin: 02/28/17 06:35 Dose: 1 amp Alprazolam (Xanax -) 0.25 mg PO Q6H PRN Last Admin: 02/27/17 22:50 Dose: 0.25 mg Amino Acids (Prosource No Carb Liquid Pkt) 30 ml PO BID@0800,1730 [facility] Last Admin: 02/28/17 09:07 Dose: 30 ml Apixaban (Eliquis -) 5 mg PO BID [facility] Last Admin: 02/28/17 09:08 Dose: 5 mg Bacitracin (Bacitracin -) 1 applic TP BID [facility] Last Admin: 02/28/17 09:10 Dose: 1 applic Diltiazem HCl (Cardizem Injection -) 10 mg IVPUSH Q4H PRN PRN Reason: TACHYCARDIA Last Admin: 02/13/17 12:13 Dose: 10 mg Diltiazem HCl (Cardizem Cd -) 180 mg PO DAILY [facility] Last Admin: 02/28/17 09:08 Dose: 180 mg Docusate Sodium (Colace -) 100 mg PO BID [facility] Last Admin: 02/28/17 09:08 Dose: 100 mg Gabapentin (Neurontin -) 100 mg PO TID [facility] Last Admin: 02/28/17 05:50 Dose: 100 mg Haloperidol (Haldol Injection (Fast Acting) -) 2 mg IM Q4H PRN PRN Reason: AGITATION Hydromorphone HCl (Dilaudid Injection -) 1 mg IVPB Q4H PRN PRN Reason: PAIN Last Admin: 02/26/17 11:47 Dose: 1 mg Cefazolin Sodium/Dextrose (Ancef 2 Gm Premixed Ivpb -) 50 mls @ 100 mls/hr IVPB Q8H-IV [facility] Last Admin: 02/28/17 01:44 Dose: 100 mls/hr Ertapenem 1 gm/ Sodium (Chloride) 50 mls @ 50 mls/hr IVPB DAILY [facility] PRN Reason: Protocol Last Admin: 02/27/17 10:31 Dose: 50 mls/hr Lidocaine (Lidoderm Patch -) 1 patch TP DAILY [facility] Last Admin: 02/28/17 09:07 Dose: 1 patch Metoprolol Tartrate (Lopressor Injection -) 5 mg IVPUSH Q4H PRN Last Admin: 02/16/17 05:48 Dose: 5 mg Metoprolol Tartrate (Lopressor -) 50 mg PO BID [facility] Last Admin: 02/28/17 09:08 Dose: 50 mg Miscellaneous (Lidoderm Patch Removal) 1 each MC DAILY@2200 [facility] Last Admin: 02/27/17 22:49 Dose: 1 each Montelukast Sodium (Singulair -) 10 mg PO HS [facility] Last Admin: 02/27/17 22:50 Dose: 10 mg Nystatin (Mycostatin Cream -) 1 applic TP BID [facility] Last Admin: 02/28/17 09:11 Dose: 1 applic Ondansetron HCl (Zofran Injection) 4 mg IVPB Q6H PRN PRN Reason: NAUSEA Oxycodone HCl (Roxicodone -) 5 mg PO Q4H PRN PRN Reason: PAIN Last Admin: 02/27/17 14:10 Dose: 5 mg Polyethylene Glycol (Miralax (For Daily Use) -) 17 gm PO BID [facility] Last Admin: 02/28/17 09:10 Dose: Not Given Saliva Substitute (Mouthkote Solution -) 1 applic MM DAILY [facility] Last Admin: 02/28/17 09:07 Dose: 1 applic Valacyclovir HCl (Valtrex -) 1,000 mg PO BID [facility] Last Admin: 02/28/17 09:08 Dose: 1,000 mg - Objective Vital Signs: Vital Signs Temperature 98.3 F 02/28/17 05:52 Pulse Rate 109 H 02/28/17 05:52 Respiratory Rate 24 02/28/17 05:52 Blood Pressure 128/76 02/28/17 05:52 O2 Sat by Pulse Oximetry (%) 92 L 02/27/17 20:26 Constitutional: Yes: No Distress, Calm Neck: Yes: Supple Cardiovascular: Yes: Regular Rate and Rhythm Respiratory: Yes: Regular, Diminished, On Nasal O2 Gastrointestinal: Yes: Normal Bowel Sounds, Soft, Abdomen, Obese Edema: Yes Edema: LLE: 1+, RLE: 1+ Labs: CBC, BMP 02/28/17 06:20 02/28/17 06:20 INR, PTT INR 1.28 (0.82-1.09) H 02/15/17 06:00 Fibrinogen 668.0 mg/dL (238-498) H 02/15/17 06:00 - ....Imaging EKG: Report Reviewed (Tele: NSR) Problem List - Problems (1) MSSA (methicillin susceptible Staphylococcus aureus) septicemia Code(s): A41.01 - SEPSIS DUE TO METHICILLIN SUSCEPTIBLE STAPHYLOCOCCUS AUREUS (2) Paroxysmal atrial fibrillation with RVR Code(s): I48.0 - PAROXYSMAL ATRIAL FIBRILLATION (3) Back pain Code(s): M54.9 - DORSALGIA, UNSPECIFIED Qualifiers: Back pain location: low back pain Chronicity: acute Back pain laterality: bilateral Sciatica presence: without sciatica Qualified Code(s): M54.5 - Low back pain (4) Thoracic aortic aneurysm without rupture Code(s): I71.2 - THORACIC AORTIC ANEURYSM, WITHOUT RUPTURE (5) Toxic metabolic encephalopathy Code(s): G92 - TOXIC ENCEPHALOPATHY (6) Osteomyelitis Code(s): M86.9 - OSTEOMYELITIS, UNSPECIFIED Qualifiers: Osteomyelitis type: acute hematogenous Osteomyelitis location: unspecified site Qualified Code(s): M86.00 - Acute hematogenous osteomyelitis, unspecified site (7) Epidural abscess Code(s): G06.2 - EXTRADURAL AND SUBDURAL ABSCESS, UNSPECIFIED (8) Septic discitis of lumbosacral region Code(s): M46.46 - DISCITIS, UNSPECIFIED, LUMBAR REGION Assessment/Plan 1. MSSA bacteremia - L4-L5 septic discitis, osteomyelitis and epidural abscess lumbar spine, iliopsoas abscesses/phlegmon 2. Paroxysmal atrial fibrillation [id number] of 4 with possible left foot thrombo-embolism vs septic emboli 3. Acute on chronic exacerbation of diastolic failure, improved 4. Thoracic aortic aneurysm 5. Toxic metabolic encephalopathy, resolving 6. ALBERTO and lactic acidosis, resolved 7. Thrombocytopenia due to sepsis, resolved PLAN: 1. Continue Cardizem CD 180 qd, hemodynamics permitting 2. Continue Lopressor 50 bid, hemodynamics permitting 3. Holding Eliquis today pending PICC tomorrow 4. Continue Ancef/ertapenem with neg surveillance cx, plan for PICC 5. D/c planning to SNF, PT
[2017-02-28] MEDS: ERTAPENEM SODIUM 1 GM in SODIUM CHLORIDE 50 ML IVPB SCH (10:09)
--- NOTE | 2017-02-28 10:12 | PN ---
Progress Note (short form) - Note Progress Note: Patient seen and examined. Patient was again confused this morning. Still questioning whether it's just that it delirium from the long hospital stay and the sepsis versus medication. I will stop the hydromorphones and Xanax. I will renew the oxycodone PRN for his back pain. a previous brain scan was normal. Blood cultures have all been negative since February 20, 2016 Afebrile Still an issue with range of motion and physical therapy. [facility] has accepted him for tomorrow. Interventional radiologyJaqui can do a PICC line on Eliis but we will hold the morning dose. On exam: Vital Signs Temp 98.3 F 02/28/17 05:52 Pulse 109 H 02/28/17 05:52 Resp 24 02/28/17 05:52 BP 128/76 02/28/17 05:52 Pulse Ox 92 L 02/27/17 20:26 Intake & Output 02/27/17 02/28/17 02/28/17 23:59 11:59 23:59 Intake Total 340 220 Balance 340 220 Intake: IVPB 100 100 Oral 240 120 Other: Voiding Method Diaper # Unmeasured Voids Void 1 1 Bowel Movement Yes Yes # Bowel Movements 1 1 patient confused intermittently with his present and me in the room. Chest decreased breath sounds. Heart regular. Abdomen distended but soft. Extremities 2+ pedal edema bilaterally. Still some erythema left dorsum of the foot. Abnormal Lab Results 02/28/17 02/28/17 06:20 06:20 WBC 13.4 H RBC 2.89 L Hgb 9.8 L Hct 29.2 L MCV 101.2 H Plt Count 454 H Neutrophils % 83.0 H Chloride 95 L Creatinine 0.6 L ALT < 6 L Albumin 1.4 L impression: MSSA septicemia. Acute lumbar discitis Acute osteomyelitis L3-L5. Epidural collection. Hypertension. Deconditioning. Delirium. Acute and chronic pain Plan: Reeval by PT physician and physical therapy. PICC line placement. Followup lab Possible transfer to [facility] tomorrow Problem List - Problems (1) Atrial fibrillation with rapid ventricular response Code(s): I48.91 - UNSPECIFIED ATRIAL FIBRILLATION (2) Back pain Code(s): M54.9 - DORSALGIA, UNSPECIFIED Qualifiers: Back pain location: low back pain Chronicity: acute Back pain laterality: bilateral Sciatica presence: without sciatica Qualified Code(s): M54.5 - Low back pain (3) Sepsis Code(s): A41.9 - SEPSIS, UNSPECIFIED ORGANISM (4) ALBERTO (acute kidney injury) Code(s): N17.9 - ACUTE KIDNEY FAILURE, UNSPECIFIED (5) Hypotension Code(s): I95.9 - HYPOTENSION, UNSPECIFIED Qualifiers: Hypotension type: unspecified hypotension type Qualified Code(s): I95.9 - Hypotension, unspecified (6) Lactic acidosis Code(s): E87.2 - ACIDOSIS (7) Sepsis associated hypotension Code(s): A41.9 - SEPSIS, UNSPECIFIED ORGANISM (8) AAA (abdominal aortic aneurysm) without rupture Code(s): I71.4 - ABDOMINAL AORTIC ANEURYSM, WITHOUT RUPTURE (9) Pain Code(s): R52 - PAIN, UNSPECIFIED (10) Foot pain, left Code(s): M79.672 - PAIN IN LEFT FOOT
[2017-02-28] MEDS ORDERED: FUROSEMIDE 40 MG/4 ML INJECTABLE VIAL IVPUSH ONE (10:30)
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
[2017-02-28] MEDS: FOLIC ACID 1 MG TABLET (FP) PO SCH (13:55)
--- NOTE | 2017-02-28 13:58 | PN ---
Progress Note, Physician History of Present Illness: pulmonary alert,more confused,dyspneic,tacycardic - Current Medication List Current Medications: Active Medications Acetaminophen (Tylenol -) 650 mg PO Q4H PRN PRN Reason: FEVER OR PAIN Last Admin: 02/27/17 14:10 Dose: 650 mg Acetaminophen (Tylenol -) 650 mg PO Q4H PRN PRN Reason: PAIN Last Admin: 02/22/17 20:21 Dose: 650 mg Albuterol Sulfate (Ventolin 0.083% Nebulizer Soln -) 1 amp NEB Q4H PRN PRN Reason: SHORT OF BREATH/WHEEZING Last Admin: 02/23/17 17:17 Dose: 1 amp Albuterol/Ipratropium (Duoneb -) 1 amp NEB TIDR [facility] Last Admin: 02/28/17 06:35 Dose: 1 amp Amino Acids (Prosource No Carb Liquid Pkt) 30 ml PO BID@0800,1730 [facility] Last Admin: 02/28/17 09:07 Dose: 30 ml Bacitracin (Bacitracin -) 1 applic TP BID [facility] Last Admin: 02/28/17 09:10 Dose: 1 applic Diltiazem HCl (Cardizem Injection -) 10 mg IVPUSH Q4H PRN PRN Reason: TACHYCARDIA Last Admin: 02/13/17 12:13 Dose: 10 mg Diltiazem HCl (Cardizem Cd -) 180 mg PO DAILY [facility] Last Admin: 02/28/17 09:08 Dose: 180 mg Docusate Sodium (Colace -) 100 mg PO BID [facility] Last Admin: 02/28/17 09:08 Dose: 100 mg Folic Acid (Folic Acid -) 1 mg PO DAILY [facility] Last Admin: 02/28/17 13:55 Dose: 1 mg Gabapentin (Neurontin -) 100 mg PO TID [facility] Last Admin: 02/28/17 13:55 Dose: 100 mg Haloperidol (Haldol Injection (Fast Acting) -) 2 mg IM Q4H PRN PRN Reason: AGITATION Cefazolin Sodium/Dextrose (Ancef 2 Gm Premixed Ivpb -) 50 mls @ 100 mls/hr IVPB Q8H-IV [facility] Last Admin: 02/28/17 10:08 Dose: 100 mls/hr Ertapenem 1 gm/ Sodium (Chloride) 50 mls @ 50 mls/hr IVPB DAILY [facility] PRN Reason: Protocol Last Admin: 02/28/17 10:09 Dose: 50 mls/hr Lidocaine (Lidoderm Patch -) 1 patch TP DAILY [facility] Last Admin: 02/28/17 09:07 Dose: 1 patch Metoprolol Tartrate (Lopressor Injection -) 5 mg IVPUSH Q4H PRN Last Admin: 02/16/17 05:48 Dose: 5 mg Metoprolol Tartrate (Lopressor -) 50 mg PO BID [facility] Last Admin: 02/28/17 09:08 Dose: 50 mg Miscellaneous (Lidoderm Patch Removal) 1 each MC DAILY@2200 [facility] Last Admin: 02/27/17 22:49 Dose: 1 each Montelukast Sodium (Singulair -) 10 mg PO HS [facility] Last Admin: 02/27/17 22:50 Dose: 10 mg Nystatin (Mycostatin Cream -) 1 applic TP BID [facility] Last Admin: 02/28/17 09:11 Dose: 1 applic Ondansetron HCl (Zofran Injection) 4 mg IVPB Q6H PRN PRN Reason: NAUSEA Oxycodone HCl (Roxicodone -) 5 mg PO Q4H PRN PRN Reason: PAIN Last Admin: 02/27/17 14:10 Dose: 5 mg Polyethylene Glycol (Miralax (For Daily Use) -) 17 gm PO BID [facility] Last Admin: 02/28/17 09:10 Dose: Not Given Saliva Substitute (Mouthkote Solution -) 1 applic MM DAILY [facility] Last Admin: 02/28/17 09:07 Dose: 1 applic Valacyclovir HCl (Valtrex -) 1,000 mg PO BID [facility] Last Admin: 02/28/17 09:08 Dose: 1,000 mg - Objective Vital Signs: Vital Signs Temperature 98.7 F 02/28/17 10:00 Pulse Rate 102 H 02/28/17 10:00 Respiratory Rate 20 02/28/17 10:00 Blood Pressure 154/89 02/28/17 10:00 O2 Sat by Pulse Oximetry (%) 92 L 02/27/17 20:26 Constitutional: Yes: Well Nourished, Mild Distress Eyes: Yes: WNL HENT: Yes: WNL Neck: Yes: WNL Cardiovascular: Yes: Pulse Irregular, S1, S2 Respiratory: Yes: Rhonchi (few scttered jes rhonchi) Gastrointestinal: Yes: Normal Bowel Sounds, Soft Extremities: Yes: WNL Edema: Yes Labs: CBC, BMP 02/28/17 06:20 02/28/17 06:20 INR, PTT INR 1.28 (0.82-1.09) H 02/15/17 06:00 Fibrinogen 668.0 mg/dL (238-498) H 02/15/17 06:00 Assessment/Plan Problem List - Problems (1) AAA (abdominal aortic aneurysm) without rupture Code(s): I71.4 - ABDOMINAL AORTIC ANEURYSM, WITHOUT RUPTURE (2) ALBERTO (acute kidney injury) Code(s): N17.9 - ACUTE KIDNEY FAILURE, UNSPECIFIED improved (3) Atrial fibrillation with rapid ventricular response Code(s): I48.91 - UNSPECIFIED ATRIAL FIBRILLATION (4) Back pain Code(s): M54.9 - DORSALGIA, UNSPECIFIED Qualifiers: Back pain location: low back pain Chronicity: acute Back pain laterality: bilateral Sciatica presence: without sciatica Qualified Code(s): M54.5 - Low back pain (5) Foot pain, left Code(s): M79.672 - PAIN IN LEFT FOOT (6) Hypotension Code(s): I95.9 - HYPOTENSION, UNSPECIFIED Qualifiers: Hypotension type: unspecified hypotension type Qualified Code(s): I95.9 - Hypotension, unspecified (7) MSSA (methicillin susceptible Staphylococcus aureus) septicemia Code(s): A41.01 - SEPSIS DUE TO METHICILLIN SUSCEPTIBLE STAPHYLOCOCCUS AUREUS (8) Paroxysmal atrial fibrillation with RVR Code(s): I48.0 - PAROXYSMAL ATRIAL FIBRILLATION (9) Sepsis Code(s): A41.9 - SEPSIS, UNSPECIFIED ORGANISM (10) Thoracic aortic aneurysm without rupture Code(s): I71.2 - THORACIC AORTIC ANEURYSM, WITHOUT RUPTURE Assessment/Plan O2 at maintain sat 90% continue ABX Per ID Inhaled bronchodilators AC Strict I&O BD TX monitor wbc chest x-ray abg DR MARTE
--- NOTE | 2017-02-28 14:06 | PN ---
Progress Note, Physician History of Present Illness: More confused today offers no complaints Afebrile WBC slightly elevated - Current Medication List Current Medications: Active Medications Acetaminophen (Tylenol -) 650 mg PO Q4H PRN PRN Reason: FEVER OR PAIN Last Admin: 02/27/17 14:10 Dose: 650 mg Acetaminophen (Tylenol -) 650 mg PO Q4H PRN PRN Reason: PAIN Last Admin: 02/22/17 20:21 Dose: 650 mg Albuterol Sulfate (Ventolin 0.083% Nebulizer Soln -) 1 amp NEB Q4H PRN PRN Reason: SHORT OF BREATH/WHEEZING Last Admin: 02/23/17 17:17 Dose: 1 amp Albuterol/Ipratropium (Duoneb -) 1 amp NEB TIDR [facility] Last Admin: 02/28/17 06:35 Dose: 1 amp Amino Acids (Prosource No Carb Liquid Pkt) 30 ml PO BID@0800,1730 [facility] Last Admin: 02/28/17 09:07 Dose: 30 ml Bacitracin (Bacitracin -) 1 applic TP BID [facility] Last Admin: 02/28/17 09:10 Dose: 1 applic Diltiazem HCl (Cardizem Injection -) 10 mg IVPUSH Q4H PRN PRN Reason: TACHYCARDIA Last Admin: 02/13/17 12:13 Dose: 10 mg Diltiazem HCl (Cardizem Cd -) 180 mg PO DAILY [facility] Last Admin: 02/28/17 09:08 Dose: 180 mg Docusate Sodium (Colace -) 100 mg PO BID [facility] Last Admin: 02/28/17 09:08 Dose: 100 mg Folic Acid (Folic Acid -) 1 mg PO DAILY [facility] Last Admin: 02/28/17 13:55 Dose: 1 mg Gabapentin (Neurontin -) 100 mg PO TID [facility] Last Admin: 02/28/17 13:55 Dose: 100 mg Haloperidol (Haldol Injection (Fast Acting) -) 2 mg IM Q4H PRN PRN Reason: AGITATION Cefazolin Sodium/Dextrose (Ancef 2 Gm Premixed Ivpb -) 50 mls @ 100 mls/hr IVPB Q8H-IV [facility] Last Admin: 02/28/17 10:08 Dose: 100 mls/hr Ertapenem 1 gm/ Sodium (Chloride) 50 mls @ 50 mls/hr IVPB DAILY [facility] PRN Reason: Protocol Last Admin: 02/28/17 10:09 Dose: 50 mls/hr Lidocaine (Lidoderm Patch -) 1 patch TP DAILY [facility] Last Admin: 02/28/17 09:07 Dose: 1 patch Metoprolol Tartrate (Lopressor Injection -) 5 mg IVPUSH Q4H PRN Last Admin: 02/16/17 05:48 Dose: 5 mg Metoprolol Tartrate (Lopressor -) 50 mg PO BID [facility] Last Admin: 02/28/17 09:08 Dose: 50 mg Miscellaneous (Lidoderm Patch Removal) 1 each MC DAILY@2200 [facility] Last Admin: 02/27/17 22:49 Dose: 1 each Montelukast Sodium (Singulair -) 10 mg PO HS [facility] Last Admin: 02/27/17 22:50 Dose: 10 mg Nystatin (Mycostatin Cream -) 1 applic TP BID [facility] Last Admin: 02/28/17 09:11 Dose: 1 applic Ondansetron HCl (Zofran Injection) 4 mg IVPB Q6H PRN PRN Reason: NAUSEA Oxycodone HCl (Roxicodone -) 5 mg PO Q4H PRN PRN Reason: PAIN Last Admin: 02/27/17 14:10 Dose: 5 mg Polyethylene Glycol (Miralax (For Daily Use) -) 17 gm PO BID [facility] Last Admin: 02/28/17 09:10 Dose: Not Given Saliva Substitute (Mouthkote Solution -) 1 applic MM DAILY [facility] Last Admin: 02/28/17 09:07 Dose: 1 applic - Objective Vital Signs: Vital Signs Temperature 98.7 F 02/28/17 10:00 Pulse Rate 102 H 02/28/17 10:00 Respiratory Rate 20 02/28/17 10:00 Blood Pressure 154/89 02/28/17 10:00 O2 Sat by Pulse Oximetry (%) 92 L 02/27/17 20:26 Constitutional: Yes: No Distress, Obese Eyes: Yes: Conjunctiva Clear Cardiovascular: Yes: Regular Rate and Rhythm, Tachycardia, S1, S2 Respiratory: Yes: Diminished Gastrointestinal: Yes: Normal Bowel Sounds, Soft, Abdomen, Obese. 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
[2017-02-28 15:30] LABS: ARTERIAL BLD GAS O2 SATURATION 97.5 % (90-98.9); ARTERIAL BLOOD GAS BASE EXCESS 13.3 meq/l (-2-2); ARTERIAL BLOOD GAS HCO3 36.6 meq/L (22-26); ARTERIAL BLOOD GAS PO2 81.4 mmHg (70-100)
[2017-02-28 15:31] LABS: ALLENS TEST POSITIVE; ART PUNCT SITE RIGHT RADIAL; ARTERIAL BLOOD GAS pH 7.59 (7.35-7.45); LPM/O2% 3L; PT. ON O2? YES; TYPE OF O2 NASAL O2
[2017-02-28] MEDS: MONTELUKAST NA 10 MG TABLET PO SCH (21:43)
[2017-02-28] MEDS: LIDOCAINE PATCH REMOVAL MC SCH (21:43)
[2017-03-01] MEDS: CEFAZOLIN 2 GM/D5W 50 ML IVPB SCH ×3 (02:32→17:09)
[2017-03-01] MEDS ORDERED: PT OWN MED DRAWER 7, Y5N ONE ×3 (03:30→09:08)
[2017-03-01] MEDS: GABAPENTIN 100 MG CAPSULE (FP) PO SCH ×3 (05:07→21:58)
[2017-03-01] MEDS: ALBUTEROL SO4 2.5/IPRATROPIUM 0.5 INH SOL 3 ML VIAL.NEB. NEB SCH ×3 (06:35→22:35)
[2017-03-01 06:53] LABS: MCH 33.3 pg (25.7-33.7); MCHC 33.5 g/dl (32.0-35.9); MEAN CELL VOLUME 99.4 fl (80-96); MEAN PLT VOLUME 7.4 fl (7.5-11.1); PLATELET COUNT 431 K/MM3 (134-434); WHITE BLOOD COUNT 12.7 K/mm3 (4.0-10.0)
--- NOTE | 2017-03-01 07:08 | PN ---
Progress Note (short form) - Note Progress Note: Chief Complaint: Events noted, notes reviewed, lethargic but easily arousable, denies any chest pain or dyspnea History of Present Illness: Seen and examined on telemetry. Events noted, notes reviewed, lethargic but easily arousable, denies any chest pain or dyspnea NOAC/Eliquis therapy on hold pending PICC insertion - Current Medication List Current Medications Acetaminophen (Tylenol -) 650 mg PO Q4H PRN PRN Reason: FEVER OR PAIN Last Admin: 02/27/17 14:10 Dose: 650 mg Acetaminophen (Tylenol -) 650 mg PO Q4H PRN PRN Reason: PAIN Last Admin: 02/22/17 20:21 Dose: 650 mg Albuterol Sulfate (Ventolin 0.083% Nebulizer Soln -) 1 amp NEB Q4H PRN PRN Reason: SHORT OF BREATH/WHEEZING Last Admin: 02/23/17 17:17 Dose: 1 amp Albuterol/Ipratropium (Duoneb -) 1 amp NEB TIDR [facility] Last Admin: 03/01/17 06:35 Dose: 1 amp Amino Acids (Prosource No Carb Liquid Pkt) 30 ml PO BID@0800,1730 [facility] Last Admin: 02/28/17 18:10 Dose: 30 ml Bacitracin (Bacitracin -) 1 applic TP BID [facility] Last Admin: 02/28/17 21:44 Dose: 1 applic Diltiazem HCl (Cardizem Injection -) 10 mg IVPUSH Q4H PRN PRN Reason: TACHYCARDIA Last Admin: 02/13/17 12:13 Dose: 10 mg Diltiazem HCl (Cardizem Cd -) 180 mg PO DAILY [facility] Last Admin: 02/28/17 09:08 Dose: 180 mg Docusate Sodium (Colace -) 100 mg PO BID [facility] Last Admin: 02/28/17 21:43 Dose: Not Given Folic Acid (Folic Acid -) 1 mg PO DAILY [facility] Last Admin: 02/28/17 13:55 Dose: 1 mg Gabapentin (Neurontin -) 100 mg PO TID [facility] Last Admin: 03/01/17 05:07 Dose: 100 mg Haloperidol (Haldol Injection (Fast Acting) -) 2 mg IM Q4H PRN PRN Reason: AGITATION Cefazolin Sodium/Dextrose (Ancef 2 Gm Premixed Ivpb -) 50 mls @ 100 mls/hr IVPB Q8H-IV [facility] Last Admin: 03/01/17 02:32 Dose: 100 mls/hr Ertapenem 1 gm/ Sodium (Chloride) 50 mls @ 50 mls/hr IVPB DAILY [facility] PRN Reason: Protocol Last Admin: 02/28/17 10:09 Dose: 50 mls/hr Lidocaine (Lidoderm Patch -) 1 patch TP DAILY [facility] Last Admin: 02/28/17 09:07 Dose: 1 patch Metoprolol Tartrate (Lopressor Injection -) 5 mg IVPUSH Q4H PRN Last Admin: 02/16/17 05:48 Dose: 5 mg Metoprolol Tartrate (Lopressor -) 50 mg PO BID [facility] Last Admin: 02/28/17 21:43 Dose: 50 mg Miscellaneous (Lidoderm Patch Removal) 1 each MC DAILY@2200 [facility] Last Admin: 02/28/17 21:43 Dose: 1 each Montelukast Sodium (Singulair -) 10 mg PO HS [facility] Last Admin: 02/28/17 21:43 Dose: 10 mg Nystatin (Mycostatin Cream -) 1 applic TP BID [facility] Last Admin: 02/28/17 21:45 Dose: 1 applic Ondansetron HCl (Zofran Injection) 4 mg IVPB Q6H PRN PRN Reason: NAUSEA Oxycodone HCl (Roxicodone -) 5 mg PO Q4H PRN PRN Reason: PAIN Last Admin: 02/27/17 14:10 Dose: 5 mg Polyethylene Glycol (Miralax (For Daily Use) -) 17 gm PO BID [facility] Last Admin: 02/28/17 21:42 Dose: Not Given Saliva Substitute (Mouthkote Solution -) 1 applic MM DAILY [facility] Last Admin: 02/28/17 09:07 Dose: 1 applic Review of Systems Cardiovascular: As noted above Respiratory: denies: Cough or Sputum Production Gastrointestinal: denies: Nausea, Vomiting, Diarrhea, Constipation or Abdominal Discomfort Musculoskeletal: Back Pain Endocrine: No Symptoms Reported - Objective Vital Signs: Last Vital Signs Temp Pulse Resp BP Pulse Ox 98.3 F 89 20 143/84 92 L 03/01/17 05:49 03/01/17 05:49 03/01/17 05:49 03/01/17 05:49 02/27/17 20:26 Neck: Supple Negative JVD Cardiovascular: S1 S2 Regular Rate and Rhythm Respiratory: Diminished Breath Sounds at the Bases Gastrointestinal: Soft Benign Normal Bowel Sounds Ext: Trace to 1+ Edema Labs: Blood test from this AM pending Assessment/Plan ASSESSMENT: 1. MSSA bacteremia - septic discitis, osteomyelitis and epidural abscess lumbar spine 2. Paroxysmal atrial fibrillation [id number] of 4 with possible left foot thrombo-embolism vs septic emboli 3. Acute on chronic exacerbation of diastolic LV failure, improved 4. Thoracic aortic aneurysm 5. Toxic metabolic encephalopathy, resolved 6. ALBERTO and lactic acidosis, resolved 7. Thrombocytopenia due to sepsis, resolved PLAN: 1. Continue Cardizem CD, hemodynamics permitting 2. Continue Lopressor, hemodynamics permitting 3. Resume Eliquis post PICC insertion with close monitoring of H/H 4. Continue antibiotic coverage as per the primary/ID teams Grayson Burkett MD
[2017-03-01 07:27] LABS: CALCIUM 8.5 mg/dL (8.5-10.1); COCKROFT - GAULT 158.06; CREATININE 0.5 mg/dL (0.7-1.3)
--- NOTE | 2017-03-01 07:37 | PN ---
Progress Note (short form) - Note Progress Note: NEUROSURGERY Daughter at bedside - progress reviewed LBP "a lot better" per daughter, mostly with movement PE: Tmax 99.2, AF, VSS Awake/alert HEENT- NC/AT; Neck- supple; Cor- RR; Lungs- no wheezes; Abd- obese, benign; Ext - No sign of DVT except mild chronic B edema CN- intact; Motor- 4+/5 B UE/LE except L IP/Quad/EHL/TA/gastroc/inv/ev 4 ( chronic); Sensation- diminished LT L L4-5 WBC 12.7 Blood cultures 6-5 and 6-6 no growth to date L4-5 spondylolisthesis with stenosis and mechanical LBP and chronic L L4-5 radiculopathy L4-5 discitis/osteomyelitis with anterior epidural soft tissue infection Clinically improving slowly On combination iv abx tx per ID Reportedly for picc line then rehab today
[2017-03-01 09:23] LABS: PLATELET ESTIMATE ADEQUATE (NORMAL)
[2017-03-01] MEDS: FOLIC ACID 1 MG TABLET (FP) PO SCH (10:03)
[2017-03-01] MEDS: AMINO ACIDS/PROTEIN HYDROLYS 30 ML LIQUID.PKT PO SCH ×2 (10:03→17:09)
[2017-03-01] MEDS: ERTAPENEM SODIUM 1 GM in SODIUM CHLORIDE 50 ML IVPB SCH (10:03)
[2017-03-01] MEDS: LIDOCAINE 5% TOPICAL PATCH TP SCH (10:04)
[2017-03-01] MEDS: BACITRACIN 30 GM TUBE TOPICAL OINTMENT TP SCH ×2 (10:04→21:58)
[2017-03-01] MEDS: METOPROLOL TARTRATE 50 MG TABLET (FP) PO SCH ×2 (10:04→21:58)
[2017-03-01] MEDS: POLYETHYLENE GLYCOL 3350 119 GM BTL PO SCH ×2 (10:04→22:02)
[2017-03-01] MEDS: DOCUSATE SODIUM 100 MG CAPSULE (FP) PO SCH ×2 (10:04→21:58)
[2017-03-01] MEDS: NYSTATIN 100,000 UNIT/GM TOPICAL CREAM 15 GM TUBE TP SCH ×2 (10:05→22:28)
[2017-03-01] MEDS: LYTES/YERBA SANTA 240 ML BOTTLE MM SCH (10:08)
[2017-03-01] MEDS ORDERED: oxyCODONE HCL 5 MG TABLET PO PRN (10:26)
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
--- NOTE | 2017-03-01 15:12 | PN ---
Progress Note, Physician History of Present Illness: Less confused today No complaints of pain No fever/ chills R UE doppler no DVT - Current Medication List Current Medications: Active Medications Acetaminophen (Tylenol -) 650 mg PO Q4H PRN PRN Reason: PAIN Last Admin: 02/22/17 20:21 Dose: 650 mg Albuterol Sulfate (Ventolin 0.083% Nebulizer Soln -) 1 amp NEB Q4H PRN PRN Reason: SHORT OF BREATH/WHEEZING Last Admin: 02/23/17 17:17 Dose: 1 amp Albuterol/Ipratropium (Duoneb -) 1 amp NEB TIDR [facility] Last Admin: 03/01/17 14:40 Dose: 1 amp Amino Acids (Prosource No Carb Liquid Pkt) 30 ml PO BID@0800,1730 [facility] Last Admin: 03/01/17 10:03 Dose: 30 ml Bacitracin (Bacitracin -) 1 applic TP BID [facility] Last Admin: 03/01/17 10:04 Dose: 1 applic Bupropion HCl (Wellbutrin Xl -) 150 mg PO DAILY [facility] Diltiazem HCl (Cardizem Cd -) 180 mg PO DAILY [facility] Last Admin: 03/01/17 10:04 Dose: 180 mg Docusate Sodium (Colace -) 100 mg PO BID [facility] Last Admin: 03/01/17 10:04 Dose: 100 mg Folic Acid (Folic Acid -) 1 mg PO DAILY [facility] Last Admin: 03/01/17 10:03 Dose: 1 mg Gabapentin (Neurontin -) 200 mg PO TID [facility] Last Admin: 03/01/17 11:55 Dose: 200 mg Haloperidol (Haldol Injection (Fast Acting) -) 2 mg IM Q4H PRN PRN Reason: AGITATION Cefazolin Sodium/Dextrose (Ancef 2 Gm Premixed Ivpb -) 50 mls @ 100 mls/hr IVPB Q8H-IV [facility] Last Admin: 03/01/17 10:03 Dose: 100 mls/hr Ertapenem 1 gm/ Sodium (Chloride) 50 mls @ 50 mls/hr IVPB DAILY [facility] PRN Reason: Protocol Last Admin: 03/01/17 10:03 Dose: 50 mls/hr Lidocaine (Lidoderm Patch -) 1 patch TP DAILY [facility] Last Admin: 03/01/17 10:04 Dose: 1 patch Metoprolol Tartrate (Lopressor -) 50 mg PO BID [facility] Last Admin: 03/01/17 10:04 Dose: 50 mg Miscellaneous (Lidoderm Patch Removal) 1 each MC DAILY@2200 [facility] Last Admin: 02/28/17 21:43 Dose: 1 each Montelukast Sodium (Singulair -) 10 mg PO HS [facility] Last Admin: 02/28/17 21:43 Dose: 10 mg Nystatin (Mycostatin Cream -) 1 applic TP BID [facility] Last Admin: 03/01/17 10:05 Dose: 1 applic Ondansetron HCl (Zofran Injection) 4 mg IVPB Q6H PRN PRN Reason: NAUSEA Oxycodone HCl (Roxicodone -) 10 mg PO Q4H PRN PRN Reason: PAIN Polyethylene Glycol (Miralax (For Daily Use) -) 17 gm PO BID [facility] Last Admin: 03/01/17 10:04 Dose: 17 gm Saliva Substitute (Mouthkote Solution -) 1 applic MM DAILY [facility] Last Admin: 03/01/17 10:08 Dose: 1 applic - Objective Vital Signs: Vital Signs Temperature 99.1 F 03/01/17 14:33 Pulse Rate 86 03/01/17 14:39 Respiratory Rate 20 03/01/17 14:33 Blood Pressure 150/79 03/01/17 14:33 O2 Sat by Pulse Oximetry (%) 93 L 03/01/17 14:39 Constitutional: Yes: No Distress Cardiovascular: Yes: Regular Rate and Rhythm, S2 Respiratory: Yes: Diminished Gastrointestinal: Yes: Normal Bowel Sounds, Soft. 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 Day #9 Continue cefazolin/ ertapenen x 14, then cefazolin alone for additional 4w
[2017-03-01] MEDS: MONTELUKAST NA 10 MG TABLET PO SCH (21:58)
[2017-03-01] MEDS: LIDOCAINE PATCH REMOVAL MC SCH (22:01)
[2017-03-02 00:07] LABS: A/G RATIO 0.4 (0.7-1.7); ALBUMIN 1.6 g/dL (2.9-4.4); ALPHA-1-GLOBULIN 0.5 g/dL (0.0-0.4); BETA GLOBULIN 1.3 g/dL (0.7-1.3); GAMMA GLOBULIN 1.9 g/dL (0.4-1.8); GLOBULIN, TOTAL 4.8 g/dL (2.2-3.9); M-SPIKE Not Observed g/dL (Not Observed); TOTAL PROTEIN 6.4 g/dL (6.0-8.5)
[2017-03-02] MEDS ORDERED: PT OWN MED DRAWER 7, Y5N ONE (01:46)
[2017-03-02] MEDS: CEFAZOLIN 2 GM/D5W 50 ML IVPB SCH ×2 (02:15→10:33)
[2017-03-02] MEDS: GABAPENTIN 100 MG CAPSULE (FP) PO SCH (04:59)
[2017-03-02] MEDS: ALBUTEROL SO4 2.5/IPRATROPIUM 0.5 INH SOL 3 ML VIAL.NEB. NEB SCH (06:45)
--- NOTE | 2017-03-02 08:24 | PN ---
Progress Note (short form) - Note Progress Note: NEUROSURGERY No new complaint PE: Tmax 98.8, AF, VSS Awake/alert HEENT- NC/AT; Neck- supple; Cor- RR; Lungs- no wheezes; Abd- obese, benign; Ext - No sign of DVT except mild chronic B edema CN- intact; Motor- 4+/5 B UE/LE except L IP/Quad/EHL/TA/gastroc/inv/ev 4 ( chronic) somewhat pain limited ; Sensation- diminished LT L L4-5 WBC 12.7 6-13 Blood cultures 6-5 and 6-6 no growth L4-5 spondylolisthesis with stenosis and mechanical LBP and chronic L L4-5 radiculopathy L4-5 discitis/osteomyelitis with anterior epidural soft tissue infection Clinically improving slowly On combination iv abx tx x 2 weeks then more weeks of cephalosporin alone per ID Reportedly for picc line then rehab Will sign off, reconsult prn
--- NOTE | 2017-03-02 08:44 | DS ---
Physical Examination Vital Signs: Vital Signs Temperature 98.6 F 03/02/17 06:00 Pulse Rate 83 03/02/17 06:00 Respiratory Rate 20 03/02/17 06:00 Blood Pressure 150/88 03/02/17 06:00 O2 Sat by Pulse Oximetry (%) 95 03/01/17 21:00 Constitutional: Yes: Calm Neck: Yes: Supple Cardiovascular: Yes: Regular Rate and Rhythm Respiratory: Yes: Diminished Gastrointestinal: Yes: Soft, Hyperactive Bowel Sounds Edema: LLE: 1+, RLE: 1+ Integumentary: Yes: Other (right buttock blister healing) Neurological: Yes: Alert (periods of confusion but more clear conversation this AM.) Labs: CBC, BMP 03/01/17 05:35 03/01/17 05:35 Discharge Summary Reason For Visit: BACK PAIN,HYPOTENSION Current Active Problems AAA (abdominal aortic aneurysm) without rupture (Acute) ALBERTO (acute kidney injury) (Acute) Anemia (Acute) Atrial fibrillation with rapid ventricular response (Acute) Back pain (Acute) Epidural abscess (Acute) Exogenous obesity (Acute) Foot pain, left (Acute) Hypokalemia (Acute) Hypotension (Acute) 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 Hospital Course: Still slow to improve with pain from osteomyelitis of spine and discs and epidural collection. Condition: Guarded - Instructions Diet, Activity, Other Instructions: Regular diet as tolerated. Periods of confusion and IV Hydrocodone D/Chad but PO oxycodone increased to 10mg PRN. Continued pain in back and left foot with Osteomyelitis documented on MRI Spine and Acute Discitis L3-5. Pain limits ability to perform PT. Antibiotics Ivanz thru 2015 Ancef thru March cbc and Basic twice a week. Referrals: Ky Gentile MD [Staff Physician] - Josh Galeano MD [Primary Care Provider] - Josh Mirza MD [Staff Physician] - Disposition: TRANSFER ACUTE CARE/OTHER HOSP - Home Medications Comprehensive Discharge Medication List: Ambulatory Orders Montelukast Na [Singulair -] 10 mg PO DAILY 02/10/17 Acetaminophen [Tylenol .Regular Strength -] 650 mg PO Q4H PRN #0 tablet Albuterol 0.083% Nebulizer Bing [Ventolin 0.083% Nebulizer Soln -] 1 amp NEB Q4H PRN #30 amp 03/01/17 Albuterol 2.5/Ipratropium 0.5 [Duoneb -] 1 amp NEB TIDR #30 amp 03/01/17 Amino Acids/Protein Hydrolys [Prosource No Carb Liquid Pkt] 30 ml PO BID@0800, 1730 packet 03/01/17 Apixaban [Eliquis -] 5 mg PO BID tablet 03/01/17 Bacitracin - [Bacitracin Topical Ointment -] 1 applic TP BID tube 03/01/17 Cefazolin 2 gm/D5w [Ancef 2 gm Premixed Ivpb -] 50 ml IVPB Q8H-IV ml 03/01/17 Diltiazem Cd [Cardizem Cd -] 180 mg PO DAILY cap 03/01/17 Docusate Sodium [Colace -] 100 mg PO BID cap 03/01/17 Ertapenem Sodium [Invanz -] 1 gm IVPB DAILY vial 03/01/17 Folic Acid - 1 mg PO DAILY tablet 03/01/17 Gabapentin [Neurontin -] 200 mg PO TID cap 03/01/17 Haloperidol Injection [Haldol Injection (Fast Acting) -] 2 mg IM Q4H PRN #1 ml 03/01/17 Lidocaine 5% Patch [Lidoderm -] 1 patch TP DAILY patch 03/01/17 Lidocaine Patch Removal [Lidoderm Patch Removal] 1 each MC DAILY@2200 each Lytes/Yerba Seda [Mouthkote Solution -] 1 applic MM DAILY applic 03/01/17 Metoprolol Tartrate [Lopressor -] 50 mg PO BID tablet 03/01/17 Nystatin Cream [Mycostatin Cream -] 1 applic TP BID applic 03/01/17 Oxycodone HCl [Roxicodone -] 10 mg PO Q4H PRN #0 tablet MDD 12 03/01/17 Polyethylene Glycol 3350 [Miralax 119 gm Btl -] 17 gm PO BID #1 bottle 03/01/17 Sodium Chloride [Normal Saline -] 50 ml IVPB DAILY ml 03/01/17
--- NOTE | 2017-03-02 08:47 | PN ---
Progress Note, Physician History of Present Illness: Lethargic yet arousable, remains in SR. - Current Medication List Current Medications: Active Medications Acetaminophen (Tylenol -) 650 mg PO Q4H PRN PRN Reason: PAIN Last Admin: 02/22/17 20:21 Dose: 650 mg Albuterol Sulfate (Ventolin 0.083% Nebulizer Soln -) 1 amp NEB Q4H PRN PRN Reason: SHORT OF BREATH/WHEEZING Last Admin: 02/23/17 17:17 Dose: 1 amp Albuterol/Ipratropium (Duoneb -) 1 amp NEB TIDR [facility] Last Admin: 03/02/17 06:45 Dose: 1 amp Amino Acids (Prosource No Carb Liquid Pkt) 30 ml PO BID@0800,1730 [facility] Last Admin: 03/01/17 17:09 Dose: 30 ml Bacitracin (Bacitracin -) 1 applic TP BID [facility] Last Admin: 03/01/17 21:58 Dose: 1 applic Bupropion HCl (Wellbutrin Xl -) 150 mg PO DAILY [facility] Last Admin: 03/01/17 16:03 Dose: 150 mg Diltiazem HCl (Cardizem Cd -) 180 mg PO DAILY [facility] Last Admin: 03/01/17 10:04 Dose: 180 mg Docusate Sodium (Colace -) 100 mg PO BID [facility] Last Admin: 03/01/17 21:58 Dose: 100 mg Folic Acid (Folic Acid -) 1 mg PO DAILY [facility] Last Admin: 03/01/17 10:03 Dose: 1 mg Gabapentin (Neurontin -) 200 mg PO TID [facility] Last Admin: 03/02/17 04:59 Dose: 200 mg Haloperidol (Haldol Injection (Fast Acting) -) 2 mg IM Q4H PRN PRN Reason: AGITATION Cefazolin Sodium/Dextrose (Ancef 2 Gm Premixed Ivpb -) 50 mls @ 100 mls/hr IVPB Q8H-IV [facility] Last Admin: 03/02/17 02:15 Dose: 100 mls/hr Ertapenem 1 gm/ Sodium (Chloride) 50 mls @ 50 mls/hr IVPB DAILY [facility] PRN Reason: Protocol Last Admin: 03/01/17 10:03 Dose: 50 mls/hr Lidocaine (Lidoderm Patch -) 1 patch TP DAILY [facility] Last Admin: 03/01/17 10:04 Dose: 1 patch Metoprolol Tartrate (Lopressor -) 50 mg PO BID [facility] Last Admin: 03/01/17 21:58 Dose: 50 mg Miscellaneous (Lidoderm Patch Removal) 1 each MC DAILY@2200 [facility] Last Admin: 03/01/17 22:01 Dose: 1 each Montelukast Sodium (Singulair -) 10 mg PO HS [facility] Last Admin: 03/01/17 21:58 Dose: 10 mg Nystatin (Mycostatin Cream -) 1 applic TP BID [facility] Last Admin: 03/01/17 22:28 Dose: 1 applic Ondansetron HCl (Zofran Injection) 4 mg IVPB Q6H PRN PRN Reason: NAUSEA Oxycodone HCl (Roxicodone -) 10 mg PO Q4H PRN PRN Reason: PAIN Polyethylene Glycol (Miralax (For Daily Use) -) 17 gm PO BID [facility] Last Admin: 03/01/17 22:02 Dose: Not Given Saliva Substitute (Mouthkote Solution -) 1 applic MM DAILY [facility] Last Admin: 03/01/17 10:08 Dose: 1 applic - Objective Vital Signs: Vital Signs Temperature 98.6 F 03/02/17 06:00 Pulse Rate 83 03/02/17 06:00 Respiratory Rate 20 03/02/17 06:00 Blood Pressure 150/88 03/02/17 06:00 O2 Sat by Pulse Oximetry (%) 95 03/01/17 21:00 Constitutional: Yes: No Distress, Calm Neck: Yes: Supple Cardiovascular: Yes: Regular Rate and Rhythm Respiratory: Yes: Regular, Diminished, On Nasal O2 Gastrointestinal: Yes: Normal Bowel Sounds, Soft, Abdomen, Obese Edema: No Labs: CBC, BMP 03/01/17 05:35 03/01/17 05:35 INR, PTT INR 1.28 (0.82-1.09) H 02/15/17 06:00 Fibrinogen 668.0 mg/dL (238-498) H 02/15/17 06:00 - ....Imaging EKG: Report Reviewed (Tele: [facility]) Problem List - Problems (1) MSSA (methicillin susceptible Staphylococcus aureus) septicemia Code(s): A41.01 - SEPSIS DUE TO METHICILLIN SUSCEPTIBLE STAPHYLOCOCCUS AUREUS (2) Paroxysmal atrial fibrillation with RVR Code(s): I48.0 - PAROXYSMAL ATRIAL FIBRILLATION (3) Back pain Code(s): M54.9 - DORSALGIA, UNSPECIFIED Qualifiers: Back pain location: low back pain Chronicity: acute Back pain laterality: bilateral Sciatica presence: without sciatica Qualified Code(s): M54.5 - Low back pain (4) Thoracic aortic aneurysm without rupture Code(s): I71.2 - THORACIC AORTIC ANEURYSM, WITHOUT RUPTURE (5) Toxic metabolic encephalopathy Code(s): G92 - TOXIC ENCEPHALOPATHY (6) Osteomyelitis Code(s): M86.9 - OSTEOMYELITIS, UNSPECIFIED Qualifiers: Osteomyelitis type: acute hematogenous Osteomyelitis location: unspecified site Qualified Code(s): M86.00 - Acute hematogenous osteomyelitis, unspecified site (7) Epidural abscess Code(s): G06.2 - EXTRADURAL AND SUBDURAL ABSCESS, UNSPECIFIED (8) Septic discitis of lumbosacral region Code(s): M46.46 - DISCITIS, UNSPECIFIED, LUMBAR REGION Assessment/Plan 1. MSSA bacteremia - septic discitis, osteomyelitis and epidural abscess lumbar spine 2. Paroxysmal atrial fibrillation [id number] of 4 with possible left foot thromboembolism vs septic emboli 3. Acute on chronic exacerbation of diastolic LV failure, improved 4. Thoracic aortic aneurysm 5. Toxic metabolic encephalopathy, resolved 6. ALBERTO and lactic acidosis, resolved 7. Thrombocytopenia due to sepsis, resolved PLAN: 1. Continue Cardizem CD 180 qd hemodynamics permitting 2. Continue Lopressor 50 bid, hemodynamics permitting 3. Resume Eliquis 5 bid post PICC insertion once hemostasis has been achieved 4. Complete antibiotic course as per the primary/ID teams in rehab
[2017-03-02] MEDS: ERTAPENEM SODIUM 1 GM in SODIUM CHLORIDE 50 ML IVPB SCH (10:33)
[2017-03-02] MEDS: FOLIC ACID 1 MG TABLET (FP) PO SCH (10:37)
[2017-03-02] MEDS: POLYETHYLENE GLYCOL 3350 119 GM BTL PO SCH (10:38)
[2017-03-02] MEDS: DOCUSATE SODIUM 100 MG CAPSULE (FP) PO SCH (10:38)
[2017-03-02] MEDS: METOPROLOL TARTRATE 50 MG TABLET (FP) PO SCH (10:38)
[2017-03-02] MEDS: LIDOCAINE 5% TOPICAL PATCH TP SCH (10:38)
[2017-03-02] MEDS: NYSTATIN 100,000 UNIT/GM TOPICAL CREAM 15 GM TUBE TP SCH (10:40)
[2017-03-02] MEDS: LYTES/YERBA SANTA 240 ML BOTTLE MM SCH (10:40)
[2017-03-02] MEDS: ACETAMINOPHEN 325 MG TABLET (FP) PO PRN (10:42)
[2017-03-02] MEDS: AMINO ACIDS/PROTEIN HYDROLYS 30 ML LIQUID.PKT PO SCH (11:10)
[2017-03-02] MEDS: BACITRACIN 30 GM TUBE TOPICAL OINTMENT TP SCH (11:10)
[2017-03-02 11:37] VITALS: PULSE 89
[2017-03-02 12:02] VITALS: BP 141/82; TEMP 97.8
--- NOTE | 2017-03-02 12:05 | PN ---
Progress Note, Physician History of Present Illness: Awake, alert Oriented C/O back pain with movement No fever/ chills Tolerating antibiotics - Current Medication List Current Medications: Active Medications Acetaminophen (Tylenol -) 650 mg PO Q4H PRN PRN Reason: PAIN Last Admin: 03/02/17 10:42 Dose: 650 mg Albuterol Sulfate (Ventolin 0.083% Nebulizer Soln -) 1 amp NEB Q4H PRN PRN Reason: SHORT OF BREATH/WHEEZING Last Admin: 02/23/17 17:17 Dose: 1 amp Albuterol/Ipratropium (Duoneb -) 1 amp NEB TIDR [facility] Last Admin: 03/02/17 06:45 Dose: 1 amp Amino Acids (Prosource No Carb Liquid Pkt) 30 ml PO BID@0800,1730 [facility] Last Admin: 03/02/17 11:10 Dose: 30 ml Bacitracin (Bacitracin -) 1 applic TP BID [facility] Last Admin: 03/02/17 11:10 Dose: 1 applic Bupropion HCl (Wellbutrin Xl -) 150 mg PO DAILY [facility] Last Admin: 03/02/17 10:37 Dose: 150 mg Diltiazem HCl (Cardizem Cd -) 180 mg PO DAILY [facility] Last Admin: 03/02/17 11:11 Dose: 180 mg Docusate Sodium (Colace -) 100 mg PO BID [facility] Last Admin: 03/02/17 10:38 Dose: 100 mg Folic Acid (Folic Acid -) 1 mg PO DAILY [facility] Last Admin: 03/02/17 10:37 Dose: 1 mg Gabapentin (Neurontin -) 200 mg PO TID [facility] Last Admin: 03/02/17 04:59 Dose: 200 mg Haloperidol (Haldol Injection (Fast Acting) -) 2 mg IM Q4H PRN PRN Reason: AGITATION Cefazolin Sodium/Dextrose (Ancef 2 Gm Premixed Ivpb -) 50 mls @ 100 mls/hr IVPB Q8H-IV [facility] Last Admin: 03/02/17 10:33 Dose: 100 mls/hr Ertapenem 1 gm/ Sodium (Chloride) 50 mls @ 50 mls/hr IVPB DAILY [facility] PRN Reason: Protocol Last Admin: 03/02/17 10:33 Dose: 50 mls/hr Lidocaine (Lidoderm Patch -) 1 patch TP DAILY [facility] Last Admin: 03/02/17 10:38 Dose: 1 patch Metoprolol Tartrate (Lopressor -) 50 mg PO BID [facility] Last Admin: 03/02/17 10:38 Dose: 50 mg Miscellaneous (Lidoderm Patch Removal) 1 each MC DAILY@2200 [facility] Last Admin: 03/01/17 22:01 Dose: 1 each Montelukast Sodium (Singulair -) 10 mg PO HS [facility] Last Admin: 03/01/17 21:58 Dose: 10 mg Nystatin (Mycostatin Cream -) 1 applic TP BID [facility] Last Admin: 03/02/17 10:40 Dose: 1 applic Ondansetron HCl (Zofran Injection) 4 mg IVPB Q6H PRN PRN Reason: NAUSEA Oxycodone HCl (Roxicodone -) 10 mg PO Q4H PRN PRN Reason: PAIN Last Admin: 03/02/17 10:38 Dose: 10 mg Polyethylene Glycol (Miralax (For Daily Use) -) 17 gm PO BID [facility] Last Admin: 03/02/17 10:38 Dose: Not Given Saliva Substitute (Mouthkote Solution -) 1 applic MM DAILY [facility] Last Admin: 03/02/17 10:40 Dose: 1 applic - Objective Vital Signs: Vital Signs Temperature 98.6 F 03/02/17 06:00 Pulse Rate 89 03/02/17 11:28 Respiratory Rate 20 03/02/17 06:00 Blood Pressure 150/88 03/02/17 06:00 O2 Sat by Pulse Oximetry (%) 92 L 03/02/17 11:28 Constitutional: Yes: No Distress Eyes: Yes: Conjunctiva Clear Cardiovascular: Yes: Regular Rate and Rhythm, S1, S2 Respiratory: Yes: CTA Bilaterally Gastrointestinal: Yes: Normal Bowel Sounds, Soft. 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 Day #9 Continue cefazolin/ ertapenen x 14, then cefazolin alone for additional 4w
== END 2017-03-02 12:31 | DRG 94 ==
LOC: JER 10:58 → JERBED 15:07 → J4S 16:35
PROVIDERS: ADMIT Internal Medicine; ATTEND Internal Medicine
PROC: B245ZZ4 Ultrasonography of Left Heart, Transesophageal (ICD-10-PCS; 2017-02-15)
PROC: 02HV33Z Insertion of Infusion Device into Superior Vena Cava, Percutaneous Approach (ICD-10-PCS; principal; 2017-03-02)
DX: G06.1 Intraspinal abscess and granuloma (principal); A41.9 Sepsis, unspecified organism; G92 Toxic encephalopathy; I50.33 Acute on chronic diastolic (congestive) heart failure; K68.12 Psoas muscle abscess; I33.9 Acute and subacute endocarditis, unspecified; E87.2 Acidosis; N17.9 Acute kidney failure, unspecified; E87.0 Hyperosmolality and hypernatremia; M46.20 Osteomyelitis of vertebra, site unspecified; J98.11 Atelectasis; M54.5 Low back pain; I95.9 Hypotension, unspecified; D72.829 Elevated white blood cell count, unspecified; D69.6 Thrombocytopenia, unspecified; M46.46 Discitis, unspecified, lumbar region; I48.0 Paroxysmal atrial fibrillation; I71.2 Thoracic aortic aneurysm, without rupture; M43.16 Spondylolisthesis, lumbar region; M48.06 Spinal stenosis, lumbar region; I11.0 Hypertensive heart disease with heart failure; R41.82 Altered mental status, unspecified; D64.9 Anemia, unspecified; R26.9 Unspecified abnormalities of gait and mobility; B37.9 Candidiasis, unspecified; R41.0 Disorientation, unspecified; E87.6 Hypokalemia; J44.9 Chronic obstructive pulmonary disease, unspecified; M19.91 Primary osteoarthritis, unspecified site; M79.672 Pain in left foot
CPT/HCPCS: 36415; 36569; 36600; 70450-TC; 71010-TC; 71250-TC; 71275-TC; 72148-TC; 72158-TC; 72192-TC; 73610-TC-LT; 73630-TC-LT; 74150-TC; 74174-TC; 76775-TC; 76856-TC; 77001-TC; 80048; 80053; 81003; 81015; 82272; 82436; 82550; 82553; 82570; 82607; 82746; 82784; 82803; 83605; 83615; 83735; 83880; 84100; 84133; 84153; 84155; 84165; 84300; 84439; 84443; 84484; 84550; 85025; 85027; 85044; 85384; 85610; 85651; 85730; 86140; 86334; 86618; 87040; 87086; 87186; 93005; 93010; 93306-TC; 93312; 93325; 93971; 94010; 94640; 97116-GP; 97162-PG; 99285-25; C1751; J1644

== ENCOUNTER 2017-03-21 14:03 | Inpatient (IN) | payer OTHER, BC ==
[2017-03-21 14:26] VITALS: BMI 25.8
--- NOTE | 2017-03-21 15:09 | PDOC ---
History of Present Illness - General Chief Complaint: SIRS, Suspected/Possible Stated Complaint: SEPSIS Time Seen by Provider: 03/21/17 14:45 History Source: Patient, Family Exam Limitations: No Limitations - History of Present Illness Initial Comments: 03/21/17 15:02 77 yo male presents via EMS from [facility] for low-grade fever and chills onset this morning. He has complicated recent medical history. He was admitted here at [facility] for complicated spinal epidural abscess and MSSA bacteremia. He was started on cefazolin and Invanz and eventually discharged to the rehabilitation facility with PICC line in mid-February. Cefazolin was continued , but Invanz was stopped around 03/06. This morning the patient had just finished his physical therapy session when he had an abrupt onset of rigors, after which time he was evaluated by the onsite MD and found to have low-grade fever as well. Given his recent history, EMS was called and he was transferred here to the ED. The patient endorses recent cough, but denies any headache, vision change, chest pain, shortness of breath, painful urination, dizziness, rash, pain as the PICC line site, or any other new symptoms. Timing/Duration: other (this morning) Associated Symptoms: reports: cough, fever/chills. denies: chest pain, headaches, loss of appetite, nausea/vomiting, rash, shortness of breath Past History - Past Medical History Allergies/Adverse Reactions: Allergies Allergy/AdvReac Type Severity Reaction Status Date / Time aloe Allergy Severe Rash Verified 03/21/17 14:21 aloe vera Allergy Severe Rash Verified 03/21/17 14:21 Home Medications: Ambulatory Orders Montelukast Na [Singulair -] 10 mg PO DAILY 02/10/17 Acetaminophen [Tylenol .Regular Strength -] 650 mg PO Q4H PRN #0 tablet Apixaban [Eliquis -] 5 mg PO BID tablet 03/01/17 Diltiazem Cd [Cardizem Cd -] 180 mg PO DAILY cap 03/01/17 Docusate Sodium [Colace -] 100 mg PO BID cap 03/01/17 Ertapenem Sodium [Invanz -] 1 gm IVPB DAILY vial 03/01/17 Folic Acid - 1 mg PO DAILY tablet 03/01/17 Gabapentin [Neurontin -] 200 mg PO TID cap 03/01/17 Metoprolol Tartrate [Lopressor -] 50 mg PO BID tablet 03/01/17 Nystatin Cream [Mycostatin Cream -] 1 applic TP BID applic 03/01/17 Polyethylene Glycol 3350 [Miralax 119 gm Btl -] 17 gm PO BID #1 bottle 03/01/17 Ipratropium/Albuterol Sulfate [Iprat-Albut 0.5-3(2.5) mg/3 ml] 3 ml IH Q4H 03/21 Melatonin 3 mg PO HS 03/21/17 Asthma: Yes HTN: Yes Other medical history: LEFT PICC, ON INVANZ & CEFAZOLIN, FOR MSSABACTEREMIA - Surgical History Abdominal Surgery: Yes (HERNIA) - Psycho/Social/Smoking Cessation Hx Suicidal Ideation: No Smoking History: Never smoked Hx Alcohol Use: No Drug/Substance Use Hx: No Substance Use Type: None Hx Substance Use Treatment: No Review of Systems - Review of Systems Constitutional: Yes: Chills, Fever HEENTM: No: Nose Congestion Respiratory: Yes: Cough. No: Shortness of Breath Cardiac (ROS): No: Chest Pain, Edema, Palpitations ABD/GI: No: Diarrhea, Nausea, Vomiting : No: Dysuria Musculoskeletal: No: Back Pain, Neck Pain Integumentary: No: Erythema, Rash Neurological: Yes: Pre-Existing Deficit. No: Headache, Numbness, Tingling, Dizziness *Physical Exam - Vital Signs Last Vital Signs Temp Pulse Resp BP Pulse Ox 102.7 F H 109 H 22 135/76 97 03/21/17 14:25 03/21/17 14:03/21/17 14:22 03/21/17 14:03/21/17 14:03/21/17 16:56 - Physical Exam General Appearance: Yes: Nourished, Other (well nourished older male who is conversive and alert). No: Apparent Distress HEENT: positive: MARJAN, Normal Voice. negative: Pale Conjunctivae, Photophobia, Muffled/Hoarse voice, Pharyngeal Erythema Neck: positive: Trachea midline, Supple. negative: Rigid, Tender midline Respiratory/Chest: positive: Lungs Clear, Normal Breath Sounds. negative: Respiratory Distress, Crackles, Rhonchi Cardiovascular: positive: Regular Rhythm, Regular Rate. negative: Edema Gastrointestinal/Abdominal: positive: Normal Bowel Sounds, Soft, Protuberent. negative: Tender Extremity: positive: Normal Capillary Refill, Normal Inspection. negative: Tender Integumentary: positive: Dry, Warm, Other (PICC line to LUE without surrounding erythema or drainage) Neurologic: positive: body maker II-XII NML intact, Fully Oriented, Alert, Normal Mood/ Affect, Other (chronic BLE weakness with left worse than right (LLE 3/5 strength , RLE 4/5 strength)) ED Treatment Course - LABORATORY CBC & Chemistry Diagram: 03/21/17 15:14 03/21/17 15:14 Comment: Lactate 2.9 noted - ADDITIONAL ORDERS Additional order review: 03/21/17 17:07 EKG show sinus tachycardia without significant ST-T changes - RADIOLOGY Chest X-Ray Result: No Infiltrates (no acute cardiopulmonary process), Other ( PICC line tip appears to be in the atrium) Medical Decision Making - Medical Decision Making 03/21/17 17:15 77 yo male with recent admission to [facility] for MSSA bacteremia, spinal epidural abscess. Per Dr. Jacobo, the patient had been started on cefazolin+irtapenem combo because bacteremia was not clearing up with cefazolin alone. Irtapenem discontinued in February, cefazolin continued through today. Lactate is 2.9. Most likely this is a PICC line-associated infection, other possibilities include recurrence of epidural abscess, endocarditis, drug reaction, UTI, PNA, etc. CXR not concerning for PNA. UA not concerning for UTI. No typical endocarditis findings on exam, no murmur. Pt's recent history and risk factors are concerning for possibility of bacteremia. Sepsis protocol followed, Dr. Morrow kindly admits to Med/Surg *DC/Admit/Observation/Transfer Diagnosis at time of Disposition: Epidural abscess Sepsis Qualifiers: Sepsis type: sepsis due to unspecified organism Qualified Code(s): A41.9 - Sepsis, unspecified organism Sepsis associated with vascular access catheter Qualifiers: Encounter type: initial encounter Qualified Code(s): T82.7XXA - Infection and inflammatory reaction due to other cardiac and vascular devices, implants and grafts, initial encounter - Discharge Dispostion Condition at time of disposition: Stable Admit: Yes - Referrals Referrals: Josh Galeano MD [Primary Care Provider] - - Transfer to Acute Care Facility Accepting Physician:: Jeb Morrow MD - Attestations Physician Attestion: 03/21/17 15:37 I, Dr. Eliana Thompson, attest that this document has been prepared under my direction and personally reviewed by me in its entirety. I further attest, that it accurately reflects all work, treatment, procedures and medical decision -making performed by me. 03/21/17 17:45
[2017-03-21 15:27] LABS: BASOPHIL 0.6 % (0-2.0); MCH 31.6 pg (25.7-33.7); MCHC 32.9 g/dl (32.0-35.9); MEAN CELL VOLUME 96.2 fl (80-96); NEUTROPHILS 82.3 % (42.8-82.8); PLATELET COUNT 370 K/MM3 (134-434); RDW 14.9 % (11.9-15.9); WHITE BLOOD COUNT 10.2 K/mm3 (4.0-10.0)
[2017-03-21] MEDS ORDERED: ACETAMINOPHEN INJECTION 100 ML IVPB ONE (15:38)
[2017-03-21] MEDS ORDERED: ACETAMINOPHEN 1000 MG/100 ML VIAL (NON FORMULARY) IVPB ONE (15:40)
[2017-03-21 15:48] LABS: ALBUMIN 1.9 g/dl (3.4-5.0); ANION GAP 8 (8-16); BILIRUBIN,TOTAL 0.6 mg/dL (0.2-1.0); CALCIUM 8.9 mg/dL (8.5-10.1); CO2 33 mmol/L (21-32); CREATININE 0.7 mg/dL (0.7-1.3); GLUCOSE,RANDOM 86 mg/dL (74-106); SGPT/ALT 12 U/L (12-78); TOT PROT 7.8 g/dl (6.4-8.2)
[2017-03-21 15:49] LABS: ALK PHOS 110 U/L (45-117); SGOT/AST 36 U/L (15-37)
[2017-03-21 16:11] LABS: URINE APPEARANCE CLEAR; URINE BILIRUBIN NEGATIVE (NEGATIVE); URINE BLOOD NEGATIVE (NEGATIVE); URINE COLOR YELLOW; URINE GLUCOSE (UA) NEGATIVE (NEGATIVE); URINE KETONE NEGATIVE (NEGATIVE); URINE LEUK ESTERASE NEGATIVE (NEGATIVE); URINE NITRITE NEGATIVE (NEGATIVE); URINE UROBILINOGEN NEGATIVE E.U./dl (0.2-1.0)
[2017-03-21 16:13] LABS: TROPONIN I < 0.02 ng/ml (0.00-0.05)
[2017-03-21 16:17] LABS: URINE PROTEIN 1+ (NEGATIVE)
[2017-03-21 16:20] LABS: URINE HYALINE CAST 1 /lpf; URINE MUCUS RARE; URINE RBC 1 /hpf (0-3); URINE WBC 2 /hpf (3-5)
[2017-03-21] MEDS ORDERED: CEFEPIME HCL 2 GM VIAL (RESTRICTED TO ID) IVPB ONE (16:32)
[2017-03-21] MEDS ORDERED: ONDANSETRON 4 MG/2 ML VIAL IVPB PRN (16:36)
[2017-03-21 16:37] LABS: INR 2.18 (0.82-1.09); PROTHROMBIN TIME (PATIENT) 24.4 SEC (9.98-11.88)
[2017-03-21 16:39] LABS: ACTIVATED PTT 32.9 SECONDS (26.9-34.4)
[2017-03-21] MEDS ORDERED: VANCOMYCIN 1 GRAM (PRE-DOCKED) 250 ML IVPB ONE ×2 (16:45→17:36)
[2017-03-21] MEDS ORDERED: CEFEPIME 2 GM/100 ML BAG PRE-DOCKED IVPB ONE (16:45)
--- NOTE | 2017-03-21 16:45 | HP ---
Admitting History and Physical - Primary Care Physician PCP: Josh Galeano - Admission Chief Complaint: I am having fevers History of Present Illness: Mr Santacruz is a very pleasant 77 year old male who was sent in from [facility] for concern for sepsis. Patient says he has been doing well with PT. He was in his second PT evaluation when he began to feel weak and have chills. Rehab was stopped and when he returned to his room his temperature was taken and he was found to be febrile. He was sent in for concern for sepsis. Otherwise he says he is doing well and is without complaint. He has chronic cough and this is unchanged. He denies lightheadedness, dizziness, chest pain, shortness of breath, nausea, vomiting, abdominal pain, loss of appetite, diarrhea, constipation, difficulty or pain on urination, swelling, or rashes. Daughter at bedside states patient was supposed to be on cefazolin and invanz for 8 weeks, but the invanz was stopped two weeks prior. History Source: Patient Limitations to Obtaining History: No Limitations - Past Medical History Cardiovascular: Yes: HTN Pulmonary: Yes: COPD Infectious Disease: Yes: Other (MSSA, discitis) - Past Surgical History Past Surgical History: Yes: Hernia Repair - Smoking History Smoking history: Never smoked - Alcohol/Substance Use Hx Alcohol Use: No History of Substance Use: reports: None - Social History Usual Living Arrangement: Yes: With Spouse ADL: Independent History of Recent Travel: Yes (as above) Home Medications - Allergies Allergies/Adverse Reactions: Allergies Allergy/AdvReac Type Severity Reaction Status Date / Time aloe Allergy Severe Rash Verified 03/21/17 14:21 aloe vera Allergy Severe Rash Verified 03/21/17 14:21 - Home Medications Home Medications: Ambulatory Orders Montelukast Na [Singulair -] 10 mg PO DAILY 02/10/17 Acetaminophen [Tylenol .Regular Strength -] 650 mg PO Q4H PRN #0 tablet Apixaban [Eliquis -] 5 mg PO BID tablet 03/01/17 Diltiazem Cd [Cardizem Cd -] 180 mg PO DAILY cap 03/01/17 Docusate Sodium [Colace -] 100 mg PO BID cap 03/01/17 Ertapenem Sodium [Invanz -] 1 gm IVPB DAILY vial 03/01/17 Folic Acid - 1 mg PO DAILY tablet 03/01/17 Gabapentin [Neurontin -] 200 mg PO TID cap 03/01/17 Metoprolol Tartrate [Lopressor -] 50 mg PO BID tablet 03/01/17 Nystatin Cream [Mycostatin Cream -] 1 applic TP BID applic 03/01/17 Polyethylene Glycol 3350 [Miralax 119 gm Btl -] 17 gm PO BID #1 bottle 03/01/17 Ipratropium/Albuterol Sulfate [Iprat-Albut 0.5-3(2.5) mg/3 ml] 3 ml IH Q4H 03/21 Melatonin 3 mg PO HS 03/21/17 Family Disease History - Family Disease History Family History: Unremarkable Review of Systems Findings/Remarks: Full review of systems obtained, as per HPI and otherwise negative Physical Examination Vital Signs: Vital Signs Temperature 102.5 F H 03/21/17 15:31 Pulse Rate 106 H 03/21/17 15:31 Respiratory Rate 22 03/21/17 15:31 Blood Pressure 135/78 03/21/17 15:31 O2 Sat by Pulse Oximetry (%) 97 03/21/17 14:22 Constitutional: Yes: Well Nourished, No Distress, Calm Eyes: Yes: Conjunctiva Clear, EOM Intact, PERRL HENT: Yes: Atraumatic, Normocephalic Cardiovascular: Yes: Regular Rate and Rhythm. No: Gallop, Murmur, Rub Respiratory: Yes: Regular, CTA Bilaterally. No: Rales, Rhonchi, Wheezes Gastrointestinal: Yes: Normal Bowel Sounds, Soft. No: Distention, Tenderness Extremities: Yes: WNL Edema: No Labs: CBC, BMP 03/21/17 15:14 03/21/17 15:14 Imaging - Results Chest X-ray: Image Reviewed Problem List - Problems (1) Sepsis Assessment/Plan: -patient presents with high fevers and concern for sepsis -did not finish course of invanz -case d/w ID -will check ECHO since staph was found in blood on last admission -give vancomycin and cefepime -remove PICC line and send tip for culture -follow up blood cultures Code(s): A41.9 - SEPSIS, UNSPECIFIED ORGANISM (2) Anemia Assessment/Plan: -decreased from last admission -no complaints of bleeding or melena -? AOCD -check stool for occult blood since anticoagulated -check iron studies Code(s): D64.9 - ANEMIA, UNSPECIFIED (3) Atrial fibrillation Assessment/Plan: -sounds in sinus rhythm on exam -continue diltiazem and eliquis Code(s): I48.91 - UNSPECIFIED ATRIAL FIBRILLATION Qualifiers: Atrial fibrillation type: paroxysmal Qualified Code(s): I48.0 - Paroxysmal atrial fibrillation (4) Epidural abscess Assessment/Plan: -consult neurosurgery to evaluate -antibiotics as above Code(s): G06.2 - EXTRADURAL AND SUBDURAL ABSCESS, UNSPECIFIED (5) Lactic acidosis Assessment/Plan: -concern for sepsis -hydration -IVF -recheck in am Code(s): E87.2 - ACIDOSIS (6) Thoracic aortic aneurysm without rupture Assessment/Plan: -medical management Code(s): I71.2 - THORACIC AORTIC ANEURYSM, WITHOUT RUPTURE
--- NOTE | 2017-03-21 16:53 | PDOC ---
Attending Attestation - Resident Resident Name: Eliana hTompson - HPI HPI: 03/21/17 16:50 Pt presents to the Ed after found to be febrile in his NH. Febrile on arrival to the ED to 102. History of bacteremia and epidural abscess. Uncertain if patient was supposed to be on ertapenem still. Recurrent abscess vs pna vs picc line infection vs UTI. Will start broad spectrum abx, page ID and admit to Dr. Morrow. - Physicial Exam PE: 03/26/17 07:34 alert, in NAD, no new neurologic findings. - Medical Decision Making 03/26/17 07:35 Pt presents to the ED with fever. Recent history of epidural abscess and bacteremia, on IV cetriaxone and impienem. Imipenem stopped in NH--unclear whether patient finished entire course. Patient is hemodyamically stable. Will do septic work up and admit to medicine.
[2017-03-21] MEDS: ALBUTEROL SO4 2.5/IPRATROPIUM 0.5 INH SOL 3 ML VIAL.NEB. NEB SCH ×2 (17:08→22:21)
[2017-03-21] MEDS: SODIUM CHLORIDE 1,000 ML IV SCH (17:08)
[2017-03-21] MEDS ORDERED: ALBUTEROL SO4 2.5/IPRATROPIUM 0.5 INH SOL 3 ML VIAL.NEB. NEB ONE (17:11)
[2017-03-21] MEDS ORDERED: CEFEPIME 100 ML IVPB ONE (17:11)
--- NOTE | 2017-03-21 17:41 | PDOC ---
*Physical Exam - Vital Signs Last Vital Signs Temp Pulse Resp BP Pulse Ox 102.5 F H 106 H 22 135/78 97 03/21/17 15:31 03/21/17 15:31 03/21/17 15:31 03/21/17 15:31 03/21/17 14:22 ED Treatment Course - LABORATORY CBC & Chemistry Diagram: 03/21/17 15:14 03/21/17 15:14 - ADDITIONAL ORDERS Additional order review: Laboratory Results 03/21/17 03/21/17 03/21/17 15:30 15:30 15:14 INR 2.18 H D PTT (Actin FS) 32.9 D Sodium Potassium Chloride Carbon Dioxide Anion Gap BUN Creatinine Creat Clearance w eGFR Random Glucose Lactic Acid 2.9 H* Calcium Total Bilirubin AST ALT Alkaline Phosphatase Creatine Kinase Troponin I Total Protein Albumin Urine Color Yellow Urine Appearance Clear Urine pH 6.0 Urine Protein 1+ H Urine Glucose (UA) Negative Urine Ketones Negative Urine Blood Negative Urine Nitrite Negative Urine Bilirubin Negative Urine Urobilinogen Negative Ur Leukocyte Esterase Negative Urine RBC 1 Urine WBC 2 Ur Epithelial Cells Rare Hyaline Casts 1 Urine Mucus Rare 03/21/17 15:14 INR PTT (Actin FS) Sodium 135 L Potassium 5.1 D Chloride 94 L Carbon Dioxide 33 H Anion Gap 8 BUN 15 Creatinine 0.7 D Creat Clearance w eGFR > 60 Random Glucose 86 Lactic Acid Calcium 8.9 Total Bilirubin 0.6 AST 36 D ALT 12 D Alkaline Phosphatase 110 D Creatine Kinase 50 Troponin I < 0.02 Total Protein 7.8 Albumin 1.9 L D Urine Color Urine Appearance Urine pH Urine Protein Urine Glucose (UA) Urine Ketones Urine Blood Urine Nitrite Urine Bilirubin Urine Urobilinogen Ur Leukocyte Esterase Urine RBC Urine WBC Ur Epithelial Cells Hyaline Casts Urine Mucus 03/21/17 15:14 RBC 2.54 L MCV 96.2 H MCHC 32.9 RDW 14.9 MPV 8.0 Neutrophils % 82.3 Lymphocytes % 7.0 L D Monocytes % 9.1 Eosinophils % 1.0 Basophils % 0.6 D - RADIOLOGY Chest X-Ray Result: No Infiltrates (no acute cardiopulmonary process), Other ( PICC line tip appears to be in the atrium) - Medications Given in the ED: ED Medications Discontinued Medications Generic Name Dose Route Start Last Admin Trade Name Freq PRN Reason Stop Dose Admin Acetaminophen 1,000 mg 03/21/17 15:40 03/21/17 15:45 Ofirmev Injection - IVPB 03/21/17 15:41 1,000 mg ONCE ONE Administration Cefepime HCl 2 gm 03/21/17 16:45 03/21/17 17:08 Maxipime 2gm Ivpb (Pre-Docked) IVPB 03/21/17 16:46 2 gm ONCE ONE Administration Protocol *DC/Admit/Observation/Transfer Diagnosis at time of Disposition: Epidural abscess Sepsis Qualifiers: Sepsis type: sepsis due to unspecified organism Qualified Code(s): A41.9 - Sepsis, unspecified organism Sepsis associated with vascular access catheter Qualifiers: Encounter type: initial encounter Qualified Code(s): T82.7XXA - Infection and inflammatory reaction due to other cardiac and vascular devices, implants and grafts, initial encounter; A41.9 - Sepsis, unspecified organism - Discharge Dispostion Condition at time of disposition: Stable Admit: Yes - Referrals Referrals: Josh Galeano MD [Primary Care Provider] - - Patient Instructions - Post Discharge Activity
--- NOTE | 2017-03-21 17:45 | PN ---
Progress Note (short form) - Note Progress Note: ID consult dictated imp/reccd 77 year old man
--- NOTE | 2017-03-21 17:53 | PN ---
Progress Note (short form) - Note Progress Note: ID consult dictated d/w patient and daughter in the ED he is waiting for a bed imp/reccd 77 year old man recently hospitalized for MSSA bacteremia- L4-L5 discitis- echo and FABIOLA negative- discharged after stay 02/10/ to 03/02 to [facility] on ertapenem and cefazolin- he is curently on cefazolin, ertapenem was d/latrice he has been doing well with PT- no more back pain! he has been walking with walker has chronic knee pain no diarrhea or dysuria last Tuesday he felt fatigued and missed 2 PT sessions- he was felt to be dehydrated and po intake was encouraged, he had a urine culture sent that was no growth This am he went to PT and started shaking-he was sent to the ED with fever of 102/ no cough, no nausea or vomiting wants to eat dinner no pain other then chronic knee pain picc line site without tenderness or erythema CBC, BMP 03/21/17 15:14 03/21/17 15:14 sepsis- Picc line, ?recurrent staph bacteremia- he no longer has back pain and is ambulating in PT BLood cultures, esr, crp remove picc line IVF vancomycin/zosyn- to cover MRSA and GNR d/w Dr Morrow further reccd to follow based on clinical course
[2017-03-21] MEDS ORDERED: CEFEPIME 2 GM/100 ML BAG PRE-DOCKED IVPB SCH (18:30)
--- NOTE | 2017-03-21 19:29 | PN ---
Progress Note (short form) - Note Progress Note: NEUROSURGERY Admitted with MSSA bacteremia 5-6 weeks earlier in late January Was in Afib On Cefazolin and Ertepenam previously Has been at [facility] and has been improving/doing well clinically Found to be febrile earlier to 102 LBP significantly better; no sciatica Was getting up with wheelchair and started walker training PMH: COPD, Afib, HTN, OA, LBP Meds: Duoneb, gabapentin, metroprolol, diltiazem, Singulair, miralax, Eliquis ALL: Aloe ROS- negative otherwise for constitutional, CV, pulmonary (mild baseline cough) , GI, , endrocrine, oncological, neurological, psych Family Hx; non-contributory PE: Tmax 102.5, now 100.9;VSS HEENT- NC/AT; Neck- supple; Cor- RR; Lungs- no wheezes; Abd- obese, benign; Ext - No sign of DVT CN- intact; Motor- 5/5 except L IP 4, L Quad/EHL/TA/gastroc/inv/ev 4-; Sensation - diminished PP/LT L L4-5; DTR- hyporeflexic B Back- minimal tenderness CT abd (02-12)- atelectasis B lung bases, mild dilatation of abd aorta; L4-5 anterolisthesis on sagittal views MRI (02-19)- L4-5 spondylolisthesis with facet hypertrophy and moderate canal stenosis and moderate-marked foramenal stenosis; L4-5 disc T2 hyperinstensity/ fluid; mild L4-5 facet joint effusion/hypertrophy; mild psoas edema L > R; osteomyelitis L4-5; anterior [id number] enhancement c/w phlegmon WBC 10.2, Hgb 8.0; Cr 0.7 Blood and urine culture pending Chronic L4-5 spondylolisthesis with stenosis and mechanical LBP and L L4-5 radiculopathy Prior mild renal insufficiency, normalized MSSA bacteremia with L4-5 discitis/osteomyelitis s/p 5-6 weeks of iv abx - on Cefazolin, now switched to Vanco and Zosyn per ID Clinically improved c/w 3 weeks earlier Could repeat lumbar imaging PRN, though interim worsening c/w prior MRI/CT expected given natural evolution of imaging findings with osteo/discitis Pt, and daughter had declined surgical debridement given pt age and COPD and once again today, also infection was phlegmonous and not effectively debrided DVT prophylaxis- SCD when in bed PT-OOB for stamina and strength training Care d/w ID Spent 65 minutes at bedside
[2017-03-21] MEDS: PIPERACILLIN/TAZOB 4.5 GM/100 ML PRE-DOCKED IVPB SCH (19:54)
[2017-03-21 21:19] LABS: BILIRUBIN,DIRECT 0.2 mg/dL (0.0-0.2)
[2017-03-21] MEDS: VANCOMYCIN 1 GRAM (PRE-DOCKED) 1,000 MG/250 ML BAG IVPB SCH (21:51)
[2017-03-21] MEDS: GABAPENTIN 100 MG CAPSULE (FP) PO SCH (22:21)
[2017-03-21] MEDS: METOPROLOL TARTRATE 50 MG TABLET (FP) PO SCH (22:22)
[2017-03-21] MEDS: DOCUSATE SODIUM 100 MG CAPSULE (FP) PO SCH (22:22)
[2017-03-21] MEDS: APIXABAN 5 MG TABLET PO SCH (22:22)
[2017-03-21] MEDS: POLYETHYLENE GLYCOL 3350 119 GM BTL PO SCH (22:24)
[2017-03-21] MEDS: NYSTATIN 100,000 UNIT/GM TOPICAL CREAM 15 GM TUBE TP SCH (22:26)
[2017-03-21] MEDS ORDERED: TEMAZEPAM 15 MG CAPSULE PO ONE (22:45)
[2017-03-22] MEDS: ALBUTEROL SO4 2.5/IPRATROPIUM 0.5 INH SOL 3 ML VIAL.NEB. NEB SCH ×5 (00:50→22:33)
--- NOTE | 2017-03-22 01:39 | CONS ---
DATE OF CONSULTATION: DATE OF DICTATION: 03/21/2017 INFECTIOUS DISEASE CONSULTATION REQUESTING PHYSICIAN: Jeb Morrow M.D. CONSULTING PHYSICIAN: Jessy Kevin M.D. HISTORY OF PRESENT ILLNESS: This is a 77-year-old man who is status post a recent admission to [facility] from February 10 to March 02. At that time he was diagnosed with MSSA sepsis. During that admission, he developed MSSA sepsis. He had an echo and a FABIOLA done that were unremarkable for gross vegetation. He developed back pain. He presented with severe back pain and was found to have vertebral osteo and small psoas abscesses. He was treated with ultimately cephazolin and ertapenem, and his blood cultures cleared. His last batch of blood cultures were February 19. He was discharged on cephazolin and ertapenem. He was to complete 2 more weeks of ertapenem and another 6 more weeks of cephazolin. He was discharged to [facility]. He has been at [facility] where he has been doing very well. His back pain has resolved, he has gotten up out of bed, he has been up out of bed. He has been doing therapy 4 times a day, he has been walking with a walker . His only limitations are chronic knee pain, which he states he has had for years due to playing soccer as a child. One week ago, he developed at [facility] acute fatigue. He was felt to be dehydrated. They asked him to increase his oral intake. He had a urine culture done that was negative. He has had no dysuria, he has had no cough . He has had no diarrhea . He has had no pain at the PICC line site. Over the weekend on Tuesday morning he did not feel well and he missed mass again; he felt well later that day and was fine. This morning he went to physical therapy and while at therapy he began to feel weak and have chills. Rehabilitation was stopped. He returned to his room, and he was found to have fever, and he was sent in for concerns of sepsis. He currently is resting comfortably. He has no abdominal pain. He has no chest pain. He has no diarrhea. He has no difficulty urinating. He has no shortness of breath. PAST MEDICAL HISTORY: Notable for hypertension, COPD. A recent diagnosis of MSSA bacteremia with vertebral diskitis. He has had a hernia repair in the past. There is no history of any cigarette use. He lives at home with his spouse, but currently he is at [facility]. ALLERGIES: He is allergic to ALOE VERA. MEDICATION: As an outpatient include Singulair, Eliquis, Cardizem, Colace, folic acid, Neurontin, Lopressor, and cefazolin which he has been getting in the [facility] as well as albuterol nebulizers p.r.n. REVIEW OF SYSTEMS: As per HPI. PHYSICAL EXAMINATION: General: He is awake and alert, he is resting comfortably. Vital signs: Current temperature is 100.9, T-max was 102.7, pulse is 104, blood pressure 116/66. HEENT: Normocephalic. Eyes are anicteric. He has no conjunctival hemorrhages. He has dry oral mucosa. Neck: Supple. Lungs: Clear to auscultation. Heart: Regular rate and rhythm. Abdomen: Soft, nontender. He has no rash. Back: He has no back pain on palpation. Extremities: Without edema. He has no rash on his feet. His PICC line site is without erythema or induration. LABORATORY: Notable for a white count of 10.2, hemoglobin is 8, platelets are 370. His BUN and creatinine are 15 and 0.7. LFTs are normal. His urinalysis is negative. He had 2 white cells and blood cultures and urine cultures have been sent . Chest x-ray was done which was negative for infiltrate. IMPRESSION: In summary, this is a 77-year-old man with sepsis, possibly the PICC line, possibly recurrent staphylococcus bacteremia. He no longer has back pain and is ambulating in physical therapy. Would obtain blood cultures, sedimentation rate, C-reactive protein . Remove his PICC line. Intravenous fluids. Would treat him with vancomycin and cefepime to cover methicillin resistant Staphylococcus aureus and gram-negative rods with pseudomonas at this time. Will discuss with Dr. Morrow and make further recommendations to follow based on his clinical course. Treat him with vancomycin and Zosyn to cover methicillin resistant Staphylococcus aureus and gram-negative rods. He received a dose of vancomycin and cefepime in the emergency room. This was all discussed with Dr. Morrow. Further recommendations to follow based on his clinical course. JESSY KEVIN M.D. [id number]
[2017-03-22] MEDS: PIPERACILLIN/TAZOB 4.5 GM/100 ML PRE-DOCKED IVPB SCH ×3 (03:28→18:03)
[2017-03-22] MEDS: VANCOMYCIN 1 GRAM (PRE-DOCKED) 1,000 MG/250 ML BAG IVPB SCH ×2 (06:31→19:03)
[2017-03-22] MEDS: GABAPENTIN 100 MG CAPSULE (FP) PO SCH ×3 (06:31→21:15)
[2017-03-22 08:22] LABS: BASOPHIL 0.7 % (0-2.0); EOSINOPHIL 4.3 % (0-4.5); MCH 31.8 pg (25.7-33.7); MCHC 33.1 g/dl (32.0-35.9); MEAN CELL VOLUME 96.1 fl (80-96); MEAN PLT VOLUME 7.2 fl (7.5-11.1); PLATELET COUNT 361 K/MM3 (134-434); RDW 14.7 % (11.9-15.9); WHITE BLOOD COUNT 8.4 K/mm3 (4.0-10.0)
[2017-03-22 08:44] LABS: ANION GAP 3 (8-16); CALCIUM 8.7 mg/dL (8.5-10.1); CO2 34 mmol/L (21-32); GLUCOSE,RANDOM 105 mg/dL (74-106); MAGNESIUM 1.6 mg/dL (1.8-2.4)
[2017-03-22 08:45] LABS: CREATININE 0.7 mg/dL (0.7-1.3); PHOSPHOROUS 3.8 mg/dL (2.5-4.9)
[2017-03-22] MEDS: LACTOBACILLUS ACIDOPHILUS 1 EACH TAB (FP) PO SCH (09:13)
[2017-03-22] MEDS: APIXABAN 5 MG TABLET PO SCH ×2 (09:13→21:16)
[2017-03-22] MEDS: METOPROLOL TARTRATE 50 MG TABLET (FP) PO SCH ×2 (09:13→21:16)
[2017-03-22] MEDS: DOCUSATE SODIUM 100 MG CAPSULE (FP) PO SCH ×2 (09:13→21:16)
[2017-03-22] MEDS: FOLIC ACID 1 MG TABLET (FP) PO SCH (09:13)
[2017-03-22] MEDS: NYSTATIN 100,000 UNIT/GM TOPICAL CREAM 15 GM TUBE TP SCH ×3 (09:14→21:16)
[2017-03-22] MEDS: POLYETHYLENE GLYCOL 3350 119 GM BTL PO SCH ×2 (09:14→21:16)
[2017-03-22] MEDS: MONTELUKAST NA 10 MG TABLET PO SCH (09:14)
--- NOTE | 2017-03-22 10:22 | PN ---
Progress Note, Physician Chief Complaint: ID Subjective improvement Vancomycin and Zosyn - Current Medication List Current Medications: Active Medications Acetaminophen (Tylenol -) 650 mg PO Q4H PRN PRN Reason: PAIN Albuterol/Ipratropium (Duoneb -) 1 amp NEB Q4H [facility] Last Admin: 03/22/17 06:10 Dose: 1 amp Apixaban (Eliquis -) 5 mg PO BID [facility] Last Admin: 03/22/17 09:13 Dose: 5 mg Diltiazem HCl (Cardizem Cd -) 180 mg PO DAILY [facility] Last Admin: 03/22/17 09:13 Dose: 180 mg Docusate Sodium (Colace -) 100 mg PO BID [facility] Last Admin: 03/22/17 09:13 Dose: 100 mg Folic Acid (Folic Acid -) 1 mg PO DAILY [facility] Last Admin: 03/22/17 09:13 Dose: 1 mg Gabapentin (Neurontin -) 200 mg PO TID [facility] Last Admin: 03/22/17 06:31 Dose: 200 mg Sodium Chloride (Normal Saline -) 1,000 mls @ 75 mls/hr IV ASDIR [facility] Last Admin: 03/21/17 17:08 Dose: 75 mls/hr Lactobacillus Acidophilus (Bacid -) 1 tab PO DAILY [facility] Last Admin: 03/22/17 09:13 Dose: 1 tab Melatonin (Melatonin) 3 mg PO HS [facility] Metoprolol Tartrate (Lopressor -) 50 mg PO BID [facility] Last Admin: 03/22/17 09:13 Dose: 50 mg Montelukast Sodium (Singulair -) 10 mg PO DAILY [facility] Last Admin: 03/22/17 09:14 Dose: 10 mg Nystatin (Mycostatin Cream -) 1 applic TP BID [facility] Last Admin: 03/22/17 09:14 Dose: 1 applic Ondansetron HCl (Zofran Injection) 4 mg IVPB Q6H PRN PRN Reason: NAUSEA Piperacillin Sod/Tazobactam Sod (Zosyn 4.5gm Ivpb (Pre-Docked)) 4.5 gm IVPB Q8H -IV [facility] Last Admin: 03/22/17 10:06 Dose: 4.5 gm Polyethylene Glycol (Miralax (For Daily Use) -) 17 gm PO BID [facility] Last Admin: 03/22/17 09:14 Dose: 17 gm Vancomycin HCl (Vancomycin (Pre-Docked)) 1,000 mg IVPB BID@0700,1900 DOMITILA PRN Reason: Protocol Last Admin: 03/22/17 06:31 Dose: 1,000 mg - Objective Vital Signs: Vital Signs Temperature 98.4 F 03/22/17 06:00 Pulse Rate 87 03/22/17 06:00 Respiratory Rate 20 03/22/17 06:00 Blood Pressure 128/84 03/22/17 06:00 O2 Sat by Pulse Oximetry (%) 95 03/21/17 19:30 Constitutional: Yes: Well Nourished, No Distress HENT: Yes: WNL, Atraumatic Neck: Yes: WNL, Supple Cardiovascular: Yes: Regular Rate and Rhythm, S1, S2. No: Murmur Respiratory: Yes: WNL, Regular, CTA Bilaterally Gastrointestinal: Yes: WNL, Normal Bowel Sounds, Soft. No: Tenderness Extremities: Yes: Other (PICC line) Edema: No Labs: CBC, BMP 03/22/17 07:40 03/22/17 07:40 INR, PTT INR 2.18 (0.82-1.09) H D 03/21/17 15:30 Assessment/Plan Microbiology 03/21/17 15:14 Blood - Picc Line Blood Culture - Preliminary Pending Organism Laboratory Tests 03/21/17 03/21/17 03/22/17 15:15 15:30 07:40 WBC 8.4 Hgb 7.6 L Plt Count 361 ESR > 130 H BUN Creatinine Urine RBC 1 Urine WBC 2 03/22/17 07:40 WBC Hgb Plt Count ESR BUN 13 Creatinine 0.7 Urine RBC Urine WBC Assessment Fever ? PICC line related. So far does not look like recurrent bacteremia. Gram pos bacillus 1 bottle ? contaminant. Disciitis with epidural abscess involving psoas MSSA bacteremia( last positive 02/19) CRP coming down from previous. Blood cultures final pending Plan Continue current antibiotics Vanco trough Remove PICC line Krupa LOPEZ
[2017-03-22] MEDS ORDERED: MAGNESIUM SULF 50% (8.12 MEQ/2 ML-1 GM VIAL) IVPB ONE (12:30)
--- NOTE | 2017-03-22 12:35 | PN ---
Progress Note, Physician Chief Complaint: Feeling better but still weak. No back pain. History of Present Illness: Patient readmitted from [facility] for temps and fatigue thought to be a possible recurrence of his recent MSSA sepsis. He had been diagnosed with Acute osteomyelitis, Acute Discitis and Epidural Collection and was scheduled to complete 4 weeks of Invanz on March and 8 weeks of IV Ancef on April 16, 2017 which were 4 and 8 week markers from the date of his last + MSSA blood culture. So far only 1 blood culture from PICC line has been posotive on this admission and PICC line removed. Will request IR to reinsert PICC. He will need apprx. 24 more days of IV Rx.. Overall much better with back pain while in [place] and PT to come tomorrow. Hb 7.6; to evaluate and Magnesium low: will order Rx. - Current Medication List Current Medications: Active Medications Acetaminophen (Tylenol -) 650 mg PO Q4H PRN PRN Reason: PAIN Albuterol/Ipratropium (Duoneb -) 1 amp NEB Q4H [facility] Last Admin: 03/22/17 06:10 Dose: 1 amp Apixaban (Eliquis -) 5 mg PO BID [facility] Last Admin: 03/22/17 09:13 Dose: 5 mg Diltiazem HCl (Cardizem Cd -) 180 mg PO DAILY [facility] Last Admin: 03/22/17 09:13 Dose: 180 mg Docusate Sodium (Colace -) 100 mg PO BID [facility] Last Admin: 03/22/17 09:13 Dose: 100 mg Folic Acid (Folic Acid -) 1 mg PO DAILY [facility] Last Admin: 03/22/17 09:13 Dose: 1 mg Gabapentin (Neurontin -) 200 mg PO TID [facility] Last Admin: 03/22/17 06:31 Dose: 200 mg Sodium Chloride (Normal Saline -) 1,000 mls @ 75 mls/hr IV ASDIR [facility] Last Admin: 03/21/17 17:08 Dose: 75 mls/hr Lactobacillus Acidophilus (Bacid -) 1 tab PO DAILY [facility] Last Admin: 03/22/17 09:13 Dose: 1 tab Magnesium Sulfate (Magnesium Sulfate) 2 gm IVPB ONCE ONE Stop: 03/22/17 12:21 Melatonin (Melatonin) 3 mg PO [facility] Metoprolol Tartrate (Lopressor -) 50 mg PO BID [facility] Last Admin: 03/22/17 09:13 Dose: 50 mg Montelukast Sodium (Singulair -) 10 mg PO DAILY [facility] Last Admin: 03/22/17 09:14 Dose: 10 mg Nystatin (Mycostatin Cream -) 1 applic TP BID [facility] Last Admin: 03/22/17 09:14 Dose: 1 applic Ondansetron HCl (Zofran Injection) 4 mg IVPB Q6H PRN PRN Reason: NAUSEA Piperacillin Sod/Tazobactam Sod (Zosyn 4.5gm Ivpb (Pre-Docked)) 4.5 gm IVPB Q8H -IV [facility] Last Admin: 03/22/17 10:06 Dose: 4.5 gm Polyethylene Glycol (Miralax (For Daily Use) -) 17 gm PO BID [facility] Last Admin: 03/22/17 09:14 Dose: 17 gm Vancomycin HCl (Vancomycin (Pre-Docked)) 1,000 mg IVPB BID@0700,1900 [facility] PRN Reason: Protocol Last Admin: 03/22/17 06:31 Dose: 1,000 mg - Objective Vital Signs: Vital Signs Temperature 98.4 F 03/22/17 06:00 Pulse Rate 87 03/22/17 06:00 Respiratory Rate 20 03/22/17 06:00 Blood Pressure 128/84 03/22/17 06:00 O2 Sat by Pulse Oximetry (%) 95 03/21/17 19:30 Constitutional: Yes: Calm, Pallor Eyes: Yes: Conjunctiva Clear Cardiovascular: Yes: Regular Rate and Rhythm Respiratory: Yes: Diminished. No: Rales, Wheezes Gastrointestinal: Yes: Normal Bowel Sounds, Soft. No: Tenderness Genitourinary: No: Fragoso Present Edema: LLE: Trace (ESTEFANI'S on), RLE: Trace Neurological: Yes: Alert, Oriented Labs: CBC, BMP 03/22/17 07:40 03/22/17 07:40 INR, PTT INR 2.18 (0.82-1.09) H D 03/21/17 15:30 - ....Imaging Chest X-ray: Report Reviewed Problem List - Problems (1) Sepsis associated with vascular access catheter Assessment/Plan: Only 1 blood C/S + from PICC line; venous samples negative so far. Code(s): T82.7XXA - INFECT/INFLM REACT D/T OTH CARDI/VASC DEV/IMPLNT/GRFT, INIT A41.9 - SEPSIS, UNSPECIFIED ORGANISM Qualifiers: Encounter type: initial encounter Qualified Code(s): T82.7XXA - Infection and inflammatory reaction due to other cardiac and vascular devices, implants and grafts, initial encounter; A41.9 - Sepsis, unspecified organism (2) Atrial fibrillation Assessment/Plan: On Eliquis. Code(s): I48.91 - UNSPECIFIED ATRIAL FIBRILLATION Qualifiers: Atrial fibrillation type: paroxysmal Qualified Code(s): I48.0 - Paroxysmal atrial fibrillation (3) Anemia Assessment/Plan: Hb 7.6 GM today Fe level and stool guiacs ordered Code(s): D64.9 - ANEMIA, UNSPECIFIED (4) Osteomyelitis Assessment/Plan: Has had 4 weeks on Invanz and 4 of 8 weeks of Ancef IV as per ID MD orders. Code(s): M86.9 - OSTEOMYELITIS, UNSPECIFIED Qualifiers: Osteomyelitis type: acute hematogenous Osteomyelitis location: unspecified site Qualified Code(s): M86.00 - Acute hematogenous osteomyelitis, unspecified site (5) Hypomagnesemia Assessment/Plan: Mag 1.6 Rx with 2GM IV Mag Sulfate today. F/U lab ordered Code(s): E83.42 - HYPOMAGNESEMIA
--- NOTE | 2017-03-22 14:31 | EKG ---
Test Reason : Blood Pressure : / mmHG Vent. Rate : 104 BPM Atrial Rate : 104 BPM P-R Int : 162 ms QRS Dur : 088 ms QT Int : 342 ms P-R-T Axes : 031 -26 -06 degrees QTc Int : 449 ms SINUS TACHYCARDIA WITH IACD MINIMAL VOLTAGE CRITERIA FOR LVH, MAY BE NORMAL VARIANT BORDERLINE ECG WHEN COMPARED WITH ECG OF 12-FEB-2017 23:49, SINUS RHYTHM HAS REPLACED ATRIAL FIBRILLATION T WAVE INVERSION NOW EVIDENT IN INFERIOR LEADS NONSPECIFIC T WAVE ABNORMALITY NO LONGER EVIDENT IN LATERAL LEADS CORELATE CLINICALLY Confirmed by VANDANA GUTIERREZ MD ([id number]) on 03/22/2017 2:31:41 PM Referred By: Confirmed By:VANDANA GUTIERREZ MD
--- NOTE | 2017-03-22 15:04 | PN ---
Progress Note (short form) - Note Progress Note: NEUROSURGERY Minimal pain Fatigued L arm PICC line out PE: Tmax 100.0, now 98.8;VSS HEENT- NC/AT; Neck- supple; Cor- RR; Lungs- no wheezes; Abd- obese, benign; Ext - No sign of DVT CN- intact; Motor- 5/5 except L IP 4+, L Quad/EHL/TA/gastroc/inv/ev 4; Sensation - diminished PP/LT L L4-5; DTR- hyporeflexic B Back- minimal tenderness WBC 8.4; Hgb 7,6, ESR 130, CRP 13.9 Blood culture- gram + baccili from PICC line samples; regular peripheral BC negative x2 to date Chronic L4-5 spondylolisthesis with stenosis and mechanical LBP and L L4-5 radiculopathy MSSA bacteremia with L4-5 discitis/osteomyelitis s/p 5-6 weeks of iv abx - on Vanco and Zosyn per ID Clinically improved till 2 days ago with new febrile episode Minimal symptoms referrable to LS spine DVT prophylaxis- SCD when in bed PT-OOB for stamina and strength training, and eventually back to rehab ID f/u and tx accordingly No neurosurgical intervention indicated Will be away till Tuesday, though available by phone if any questions
[2017-03-22] MEDS ORDERED: ONDANSETRON 4 MG/2 ML VIAL IVPB PRN (17:42)
[2017-03-22] MEDS ORDERED: PIPERACILLIN/TAZOB 4.5 GM/100 ML PRE-DOCKED IVPB SCH (18:00)
[2017-03-22] MEDS: SODIUM CHLORIDE 1,000 ML IV SCH (18:22)
[2017-03-22] MEDS: PIPERACILLIN/TAZOB 4.5 GM 4.5 GM in DEXTROSE 5%-WATER - 100 ML IVPB SCH (19:03)
[2017-03-22] MEDS ORDERED: PT OWN MED DRAWER 7, Y5N ONE (21:13)
[2017-03-22] MEDS: MELATONIN 1 MG TABLET PO SCH (21:17)
[2017-03-23] MEDS: ALBUTEROL SO4 2.5/IPRATROPIUM 0.5 INH SOL 3 ML VIAL.NEB. NEB SCH ×6 (01:40→22:05)
[2017-03-23] MEDS ORDERED: PT OWN MED DRAWER 7, Y5N ONE ×4 (01:59→21:01)
[2017-03-23] MEDS: PIPERACILLIN/TAZOB 4.5 GM 4.5 GM in DEXTROSE 5%-WATER - 100 ML IVPB SCH ×3 (02:09→17:23)
[2017-03-23] MEDS: GABAPENTIN 100 MG CAPSULE (FP) PO SCH ×3 (05:59→21:05)
[2017-03-23] MEDS: VANCOMYCIN 1 GRAM (PRE-DOCKED) 1,000 MG/250 ML BAG IVPB SCH ×2 (06:00→18:36)
[2017-03-23 06:05] LABS: SERUM IRON 19 ug/dL (38-169); TOTAL IRON BINDING CAPACITY 119 ug/dL (250-450); UIBC 100 ug/dL (111-343)
[2017-03-23] MEDS: SODIUM CHLORIDE 1,000 ML IV SCH (06:09)
[2017-03-23 06:48] LABS: BASOPHIL 0.7 % (0-2.0); EOSINOPHIL 6.5 % (0-4.5); MCH 31.1 pg (25.7-33.7); MCHC 32.7 g/dl (32.0-35.9); MEAN CELL VOLUME 95.2 fl (80-96); MEAN PLT VOLUME 7.5 fl (7.5-11.1); NEUTROPHILS 68.2 % (42.8-82.8); PLATELET COUNT 320 K/MM3 (134-434); RDW 14.9 % (11.9-15.9); WHITE BLOOD COUNT 7.3 K/mm3 (4.0-10.0)
[2017-03-23 07:09] LABS: MAGNESIUM 1.7 mg/dL (1.8-2.4)
[2017-03-23] MEDS ORDERED: MAGNESIUM SULF 50% (8.12 MEQ/2 ML-1 GM VIAL) IVPB ONE (08:29)
--- NOTE | 2017-03-23 08:43 | PN ---
Progress Note (short form) - Note Progress Note: Patient's Hb fell to 6.7 GM today after being lower at 7.6 GM yesterday. No obvious source but Serum Fe is low. I did a rectal exam and there is soft brown stool; Guiac was done this AM. IF guiac is negative will call Noni LOPEZ. He feels OK with a slight cough non productive. No nausea or abdominal pain. PT to resume today. On Exam: Vital Signs Temp 98.9 F 03/23/17 06:00 Pulse 99 H 03/23/17 06:00 Resp 18 03/23/17 06:00 BP 124/65 03/23/17 06:00 Pulse Ox 94 L 03/22/17 20:53 Intake & Output 03/22/17 03/22/17 03/23/17 11:59 23:59 11:59 Intake Total 1350 1500 825 Output Total 1400 700 350 Balance -50 800 475 Weight 170 lb Intake: IV 900 600 825 Normal Saline - 1,000 ml 900 600 825 @ 75 mls/hr IV ASDIR DOMITILA Rx#:[id number] IVPB 200 200 Oral 250 700 Output: Urine 1400 700 350 Void 1400 700 350 Other: Voiding Method Urinal Bedpan Bowel Movement Yes Yes # Bowel Movements 1 Weight Measurement Method Patient Lift Scale Alert Pale Chest: a few rales at bases Cor; Reg Abd: Soft; no distention or tenderness Bowels sounds normal Ext:ESTEFANI's and SCD's Abnormal Lab Results 03/22/17 03/22/17 03/22/17 07:40 07:40 07:40 RBC Hgb Hct Monocytes % Eosinophils % Carbon Dioxide 34 H Anion Gap 3 L Magnesium 1.6 L D Iron 19 L TIBC 119 L Ferritin 512.260 H Serum Folate Vancomycin Pre-Dose 03/22/17 03/23/17 03/23/17 10:45 05:48 05:48 RBC 2.15 L Hgb 6.7 L* D Hct 20.5 L Monocytes % 11.3 H Eosinophils % 6.5 H Carbon Dioxide Anion Gap Magnesium Iron TIBC Ferritin Serum Folate Vancomycin Pre-Dose 16.456 H* 12.428 H D 03/23/17 05:48 RBC Hgb Hct Monocytes % Eosinophils % Carbon Dioxide Anion Gap Magnesium 1.7 L Iron TIBC Ferritin Serum Folate 19 H Vancomycin Pre-Dose IMP: Acute anemia probably due to Fe deficiency R/O Occult GI Bleed Sepsis PICC Line Removed; await timing to reinsert Acute Osteomyelitis and Discitis Improved but on IV Antibiotics Paroxysmal Atrial Fibrillation Hypertension Hypomagnesemia Plan: Stool Guiac done Transfuse 1 unit PC Follow with Lasix 40mg IV D/C IV saline F/U Lab Continue IV antibiotics; previous goal was Ancef IV TID thru 04/16/17. Will need reinsertion of PICC line Mag IV 2 GM Problem List - Problems (1) Sepsis associated with vascular access catheter Code(s): T82.7XXA - INFECT/INFLM REACT D/T OTH CARDI/VASC DEV/IMPLNT/GRFT, INIT A41.9 - SEPSIS, UNSPECIFIED ORGANISM Qualifiers: Encounter type: initial encounter Qualified Code(s): T82.7XXA - Infection and inflammatory reaction due to other cardiac and vascular devices, implants and grafts, initial encounter; A41.9 - Sepsis, unspecified organism (2) Atrial fibrillation Code(s): I48.91 - UNSPECIFIED ATRIAL FIBRILLATION Qualifiers: Atrial fibrillation type: paroxysmal Qualified Code(s): I48.0 - Paroxysmal atrial fibrillation (3) Anemia Code(s): D64.9 - ANEMIA, UNSPECIFIED (4) Osteomyelitis Code(s): M86.9 - OSTEOMYELITIS, UNSPECIFIED Qualifiers: Osteomyelitis type: acute hematogenous Osteomyelitis location: unspecified site Qualified Code(s): M86.00 - Acute hematogenous osteomyelitis, unspecified site (5) Hypomagnesemia Code(s): E83.42 - HYPOMAGNESEMIA
[2017-03-23] MEDS: FOLIC ACID 1 MG TABLET (FP) PO SCH (10:23)
[2017-03-23] MEDS: LACTOBACILLUS ACIDOPHILUS 1 EACH TAB (FP) PO SCH (10:23)
[2017-03-23] MEDS: METOPROLOL TARTRATE 50 MG TABLET (FP) PO SCH ×2 (10:23→21:05)
[2017-03-23] MEDS: MONTELUKAST NA 10 MG TABLET PO SCH (10:23)
[2017-03-23] MEDS: APIXABAN 5 MG TABLET PO SCH ×2 (10:23→21:05)
[2017-03-23] MEDS: DOCUSATE SODIUM 100 MG CAPSULE (FP) PO SCH ×2 (10:23→21:02)
[2017-03-23] MEDS: POLYETHYLENE GLYCOL 3350 119 GM BTL PO SCH ×2 (10:24→21:02)
[2017-03-23] MEDS: NYSTATIN 100,000 UNIT/GM TOPICAL CREAM 15 GM TUBE TP SCH ×2 (14:01→21:06)
[2017-03-23] MEDS ORDERED: ALBUTEROL SO4 2.5/IPRATROPIUM 0.5 INH SOL 3 ML VIAL.NEB. NEB SCH (15:41)
[2017-03-23] MEDS ORDERED: FUROSEMIDE 40 MG/4 ML INJECTABLE VIAL IVPUSH ONE (16:00)
--- NOTE | 2017-03-23 16:12 | PN ---
Progress Note (short form) - Note Progress Note: feels well no more rigors or fever picc line is out Vital Signs Period Temp Pulse Resp BP Sys/Cat Pulse Ox Last 24 Hr 98.7 F-100.0 F 85-116 18-20 123-140/65-80 94-98 cor-rrr lungs clear abd soft,nt ext no edema CBC, BMP 03/23/17 05:48 03/22/17 07:40 Laboratory Tests 03/23/17 05:48 Vancomycin Pre-Dose 12.428 H D Microbiology 03/21/17 15:13 Blood - Peripheral Venous Blood Culture - Preliminary NO GROWTH OBTAINED AFTER 48 HOURS, INCUBATION TO CONTINUE FOR 3 DAYS. 03/21/17 15:14 Blood - Peripheral Venous Blood Culture - Preliminary NO GROWTH OBTAINED AFTER 48 HOURS, INCUBATION TO CONTINUE FOR 3 DAYS. 03/22/17 10:30 Catheter Tip - Picc Line Foreign Body Culture - Preliminary NO GROWTH OBTAINED AFTER 24 HOURS INCUBATION, REINCUBATED. 03/21/17 15:30 Urine - Urine - Catheterized Urine Culture - Final NO GROWTH OBTAINED 03/21/17 15:14 Blood - Picc Line Blood Culture - Preliminary Bacillus Species a/p fever- ?picc line infection-await final cultures continue vanco/zosyn-?switch tomorrow to cefazolin MSSA bacteremia-discitis- psoas abscesses- crp improving, last positive blood culture 02/19 needs another 4 weeks of iv cefazolin anemia- w/u per primary
[2017-03-23] MEDS ORDERED: INSULIN (NOVOLOG) ASPART 100 UNITS/ML 10ML VIAL ONE (16:32)
[2017-03-23] MEDS: ACETAMINOPHEN 325 MG TABLET (FP) PO PRN (20:02)
[2017-03-23] MEDS: MELATONIN 1 MG TABLET PO SCH (21:05)
[2017-03-24] MEDS ORDERED: PT OWN MED DRAWER 7, Y5N ONE ×5 (00:59→22:13)
[2017-03-24] MEDS: PIPERACILLIN/TAZOB 4.5 GM 4.5 GM in DEXTROSE 5%-WATER - 100 ML IVPB SCH ×2 (01:05→09:15)
[2017-03-24] MEDS: ALBUTEROL SO4 2.5/IPRATROPIUM 0.5 INH SOL 3 ML VIAL.NEB. NEB SCH ×6 (02:00→22:28)
[2017-03-24] MEDS: GABAPENTIN 100 MG CAPSULE (FP) PO SCH ×3 (05:37→22:15)
[2017-03-24] MEDS: VANCOMYCIN 1 GRAM (PRE-DOCKED) 1,000 MG/250 ML BAG IVPB SCH (06:04)
[2017-03-24 07:40] LABS: BASOPHIL 0.6 % (0-2.0); EOSINOPHIL 6.4 % (0-4.5); MCH 31.8 pg (25.7-33.7); MCHC 33.9 g/dl (32.0-35.9); MEAN CELL VOLUME 93.6 fl (80-96); MEAN PLT VOLUME 7.4 fl (7.5-11.1); NEUTROPHILS 65.8 % (42.8-82.8); PLATELET COUNT 359 K/MM3 (134-434); RDW 15.9 % (11.9-15.9); WHITE BLOOD COUNT 7.7 K/mm3 (4.0-10.0)
[2017-03-24 08:27] LABS: ANION GAP 7 (8-16); CALCIUM 8.4 mg/dL (8.5-10.1); CO2 34 mmol/L (21-32); CREATININE 0.7 mg/dL (0.7-1.3); GLUCOSE,RANDOM 82 mg/dL (74-106); MAGNESIUM 1.8 mg/dL (1.8-2.4)
--- NOTE | 2017-03-24 08:58 | PN ---
Progress Note (short form) - Note Progress Note: Patient feeling better but no PT yesterday due to blood transfusion. Hb 6.7 to 8.9 GM. Ist stool guiac was negative. On IV antibiotics and only 1 PICC line Blood C/S from admission is +. Await decision from ID Re:antibiotic followup because previous plan was Ancef thru . He had been on Invanz for 4 weeks. Also we will have to time PICC line on day of transfer back to [place]. On Exam: Vital Signs Temp 98.1 F 03/24/17 05:59 Pulse 94 H 03/24/17 05:59 Resp 20 03/24/17 05:59 BP 143/76 03/24/17 05:59 Pulse Ox 95 03/23/17 21:00 Intake & Output 03/23/17 03/23/17 03/24/17 11:59 23:59 11:59 Intake Total 1175 2355 Output Total 700 4035 600 Balance 475 -1680 -600 Intake: IV 825 300 Normal Saline - 1,000 ml 825 300 @ 75 mls/hr IV ASDIR DOMITILA Rx#:[id number] IVPB 450 Oral 350 1255 Packed Cells 350 Output: Urine 700 4035 600 Void 700 4035 600 Other: Voiding Method Urinal Urinal Bowel Movement Yes # Bowel Movements 1 Alert Chest: Few rales at bases Cor ; Reg Abd: Soft and nontender ExT: No edema Joss's and SCD's in place. Abnormal Lab Results 03/22/17 03/23/17 03/24/17 07:40 09:10 05:35 RBC 2.79 L D Hgb 8.9 L D Hct 26.1 L D MPV 7.4 L Monocytes % 11.4 H Eosinophils % 6.4 H Chloride Carbon Dioxide Anion Gap Calcium Transferrin 96 L Crossmatch See Detail 03/24/17 05:35 RBC Hgb Hct MPV Monocytes % Eosinophils % Chloride 97 L Carbon Dioxide 34 H Anion Gap 7 L Calcium 8.4 L Transferrin Crossmatch IMP: Anemia corrected with 1 unit PC ? Source Acute Osteomyelitis and Discitis A. Fib to NSR on NOAC Hypertension Sepsis due to MSSA Plan: Continue stool Guiac F/U CBC PT Decision on Antibiotics whe back to [place] PICC line on day of discharge Problem List - Problems (1) Sepsis associated with vascular access catheter Code(s): T82.7XXA - INFECT/INFLM REACT D/T OTH CARDI/VASC DEV/IMPLNT/GRFT, INIT A41.9 - SEPSIS, UNSPECIFIED ORGANISM Qualifiers: Encounter type: initial encounter Qualified Code(s): T82.7XXA - Infection and inflammatory reaction due to other cardiac and vascular devices, implants and grafts, initial encounter; A41.9 - Sepsis, unspecified organism (2) Atrial fibrillation Code(s): I48.91 - UNSPECIFIED ATRIAL FIBRILLATION Qualifiers: Atrial fibrillation type: paroxysmal Qualified Code(s): I48.0 - Paroxysmal atrial fibrillation (3) Anemia Code(s): D64.9 - ANEMIA, UNSPECIFIED (4) Osteomyelitis Code(s): M86.9 - OSTEOMYELITIS, UNSPECIFIED Qualifiers: Osteomyelitis type: acute hematogenous Osteomyelitis location: unspecified site Qualified Code(s): M86.00 - Acute hematogenous osteomyelitis, unspecified site (5) Hypomagnesemia Code(s): E83.42 - HYPOMAGNESEMIA
[2017-03-24] MEDS: METOPROLOL TARTRATE 50 MG TABLET (FP) PO SCH ×2 (09:19→22:15)
[2017-03-24] MEDS: LACTOBACILLUS ACIDOPHILUS 1 EACH TAB (FP) PO SCH (09:20)
[2017-03-24] MEDS: FOLIC ACID 1 MG TABLET (FP) PO SCH (09:20)
[2017-03-24] MEDS: MONTELUKAST NA 10 MG TABLET PO SCH (09:20)
[2017-03-24] MEDS: APIXABAN 5 MG TABLET PO SCH ×2 (09:20→22:15)
[2017-03-24] MEDS: DOCUSATE SODIUM 100 MG CAPSULE (FP) PO SCH ×3 (09:20→22:28)
[2017-03-24] MEDS: POLYETHYLENE GLYCOL 3350 119 GM BTL PO SCH ×2 (09:22→22:16)
--- NOTE | 2017-03-24 09:28 | PN ---
Progress Note, Physician Chief Complaint: ID Alert NAD Dry couph Vanco and Zosyn - Current Medication List Current Medications: Active Medications Acetaminophen (Tylenol -) 650 mg PO Q4H PRN PRN Reason: PAIN Last Admin: 03/23/17 20:02 Dose: 650 mg Albuterol/Ipratropium (Duoneb -) 1 amp NEB Q4HPO [facility] Last Admin: 03/24/17 06:48 Dose: 1 amp Apixaban (Eliquis -) 5 mg PO BID [facility] Last Admin: 03/24/17 09:20 Dose: 5 mg Diltiazem HCl (Cardizem Cd -) 180 mg PO DAILY [facility] Last Admin: 03/24/17 09:20 Dose: 180 mg Docusate Sodium (Colace -) 100 mg PO BID [facility] Last Admin: 03/24/17 09:20 Dose: 100 mg Folic Acid (Folic Acid -) 1 mg PO DAILY [facility] Last Admin: 03/24/17 09:20 Dose: 1 mg Gabapentin (Neurontin -) 200 mg PO TID [facility] Last Admin: 03/24/17 05:37 Dose: 200 mg Piperacillin Sod/Tazobactam (Sod 4.5 gm/ Dextrose) 100 mls @ 200 mls/hr IVPB Q8H-IV [facility] Last Admin: 03/24/17 09:15 Dose: 200 mls/hr Lactobacillus Acidophilus (Bacid -) 1 tab PO DAILY [facility] Last Admin: 03/24/17 09:20 Dose: 1 tab Melatonin (Melatonin) 3 mg PO HS [facility] Last Admin: 03/23/17 21:05 Dose: 3 mg Metoprolol Tartrate (Lopressor -) 50 mg PO BID [facility] Last Admin: 03/24/17 09:19 Dose: 50 mg Montelukast Sodium (Singulair -) 10 mg PO DAILY [facility] Last Admin: 03/24/17 09:20 Dose: 10 mg Nystatin (Mycostatin Cream -) 1 applic TP BID [facility] Last Admin: 03/23/17 21:06 Dose: 1 applic Ondansetron HCl (Zofran Injection) 4 mg IVPB Q6H PRN PRN Reason: NAUSEA Polyethylene Glycol (Miralax (For Daily Use) -) 17 gm PO BID [facility] Last Admin: 03/24/17 09:22 Dose: Not Given Vancomycin HCl (Vancomycin (Pre-Docked)) 1,000 mg IVPB BID@0700,1900 DOMITILA PRN Reason: Protocol Last Admin: 03/24/17 06:04 Dose: 1,000 mg - Objective Vital Signs: Vital Signs Temperature 98.1 F 03/24/17 05:59 Pulse Rate 94 H 03/24/17 05:59 Respiratory Rate 20 03/24/17 05:59 Blood Pressure 143/76 03/24/17 05:59 O2 Sat by Pulse Oximetry (%) 95 03/23/17 21:00 Constitutional: Yes: No Distress Neck: Yes: WNL, Supple Cardiovascular: Yes: Regular Rate and Rhythm, S1, S2. No: Murmur Respiratory: Yes: WNL, Regular, CTA Bilaterally, Rales, Other (Bibasilar rales) Gastrointestinal: Yes: WNL, Normal Bowel Sounds, Soft. No: Tenderness, Tenderness, Epigastrium Edema: No Labs: CBC, BMP 03/24/17 05:35 03/24/17 05:35 INR, PTT INR 2.18 (0.82-1.09) H D 03/21/17 15:30 Assessment/Plan Microbiology 03/21/17 15:30 Urine - Urine - Catheterized Urine Culture - Final NO GROWTH OBTAINED 03/22/17 10:30 Catheter Tip - Picc Line Foreign Body Culture - Preliminary NO GROWTH OBTAINED AFTER 24 HOURS INCUBATION, REINCUBATED. 03/21/17 15:14 Blood - Picc Line Blood Culture - Preliminary Bacillus Species 03/21/17 15:14 Blood - Peripheral Venous Blood Culture - Preliminary NO GROWTH OBTAINED AFTER 48 HOURS, INCUBATION TO CONTINUE FOR 3 DAYS. 03/21/17 15:13 Blood - Peripheral Venous Blood Culture - Preliminary NO GROWTH OBTAINED AFTER 48 HOURS, INCUBATION TO CONTINUE FOR 3 DAYS. Laboratory Tests 03/24/17 05:35 WBC 7.7 Plt Count 359 Assessment MSSA bacteremia with osteo and psoas abscesses Fever assume PICC line related although a drug Cefazolin fever a possibility Blood for Bacillus contaminant Anemia Plan Stop antibiotic Vanco and Zosyn Resume Cefazolin Krupa LOPEZ
[2017-03-24] MEDS: ACETAMINOPHEN 325 MG TABLET (FP) PO PRN (10:58)
[2017-03-24] MEDS: CEFAZOLIN 2 GM/D5W 50 ML IVPB SCH ×2 (11:24→17:28)
[2017-03-24] MEDS: NYSTATIN 100,000 UNIT/GM TOPICAL CREAM 15 GM TUBE TP SCH ×2 (11:30→22:16)
[2017-03-24] MEDS: MELATONIN 1 MG TABLET PO SCH (22:17)
[2017-03-25] MEDS: CEFAZOLIN 2 GM/D5W 50 ML IVPB SCH ×3 (01:29→17:52)
[2017-03-25] MEDS ORDERED: PT OWN MED DRAWER 7, Y5N ONE ×2 (01:29→21:41)
[2017-03-25] MEDS: ALBUTEROL SO4 2.5/IPRATROPIUM 0.5 INH SOL 3 ML VIAL.NEB. NEB SCH ×6 (02:16→22:00)
[2017-03-25] MEDS: GABAPENTIN 100 MG CAPSULE (FP) PO SCH ×3 (06:07→21:50)
[2017-03-25 06:47] LABS: BASOPHIL 0.8 % (0-2.0); EOSINOPHIL 6.6 % (0-4.5); MCH 31.5 pg (25.7-33.7); MCHC 33.5 g/dl (32.0-35.9); MEAN CELL VOLUME 93.9 fl (80-96); MEAN PLT VOLUME 7.3 fl (7.5-11.1); NEUTROPHILS 69.9 % (42.8-82.8); PLATELET COUNT 355 K/MM3 (134-434); RDW 15.6 % (11.9-15.9); WHITE BLOOD COUNT 8.6 K/mm3 (4.0-10.0)
[2017-03-25] MEDS: MONTELUKAST NA 10 MG TABLET PO SCH (09:19)
[2017-03-25] MEDS: LACTOBACILLUS ACIDOPHILUS 1 EACH TAB (FP) PO SCH (09:19)
[2017-03-25] MEDS: METOPROLOL TARTRATE 50 MG TABLET (FP) PO SCH ×2 (09:19→21:50)
[2017-03-25] MEDS: APIXABAN 5 MG TABLET PO SCH ×2 (09:20→21:50)
[2017-03-25] MEDS: FOLIC ACID 1 MG TABLET (FP) PO SCH (09:20)
[2017-03-25] MEDS: DOCUSATE SODIUM 100 MG CAPSULE (FP) PO SCH ×2 (09:20→21:52)
[2017-03-25] MEDS: NYSTATIN 100,000 UNIT/GM TOPICAL CREAM 15 GM TUBE TP SCH ×2 (09:21→22:15)
[2017-03-25] MEDS: POLYETHYLENE GLYCOL 3350 119 GM BTL PO SCH ×2 (09:21→21:52)
--- NOTE | 2017-03-25 09:40 | PN ---
Progress Note (short form) - Note Progress Note: Patient with admission for fevers noted at [facility] thought to be secondary to PICC line issue as only 1 Blood C/S from PICC line was +. Patient now returned to IV Ancef 2 GM Q 8H which previously had been scheduled thru . He was also on 4 weeks of Invanz . He didn't do well with PT yesterday but is anxious to resume today. Major issue with a drop in HB to 6.7GM 2 days ago and given 1 unit packed cells. 1st stool neg: await F/U samples. Fe low but B12 and Folate OK. Hb 8.5 GM today. On Exam: Vital Signs Temp 98.0 F 03/25/17 06:00 Pulse 93 H 03/25/17 06:00 Resp 18 03/25/17 06:00 BP 140/84 03/25/17 06:00 Pulse Ox 95 03/24/17 21:00 Intake & Output 03/24/17 03/24/17 03/25/17 11:59 23:59 11:59 Intake Total 300 1030 250 Output Total 600 1300 Balance -300 -270 250 Intake: IVPB 50 50 Oral 300 980 200 Output: Urine 600 1300 Void 600 1300 Other: Voiding Method Urinal Urinal Bowel Movement Yes Alert Chest: Few rales at bases Cor: Rg Abd: Soft and nontender Ext: ESTEFANI's but some edema left foot Abnormal Lab Results 03/25/17 05:35 RBC 2.71 L Hgb 8.5 L Hct 25.4 L MPV 7.3 L Monocytes % 10.6 H Eosinophils % 6.6 H IMP: Acute Osteomyelitis, Discitis and Epidural Collection from MSSA Temps and + Blood C/S from previous PICC line Paroxysmal A. Fib Hypertension Acute Anemia probably Iron Def Hx: Choledocholithiasis Plan: PT F/U Lab Stool Guiacs PICC line when ready to go back to [facility] F/U ID MD's Problem List - Problems (1) Sepsis associated with vascular access catheter Code(s): T82.7XXA - INFECT/INFLM REACT D/T OTH CARDI/VASC DEV/IMPLNT/GRFT, INIT A41.9 - SEPSIS, UNSPECIFIED ORGANISM Qualifiers: Encounter type: initial encounter Qualified Code(s): T82.7XXA - Infection and inflammatory reaction due to other cardiac and vascular devices, implants and grafts, initial encounter; A41.9 - Sepsis, unspecified organism (2) Atrial fibrillation Code(s): I48.91 - UNSPECIFIED ATRIAL FIBRILLATION Qualifiers: Atrial fibrillation type: paroxysmal Qualified Code(s): I48.0 - Paroxysmal atrial fibrillation (3) Anemia Code(s): D64.9 - ANEMIA, UNSPECIFIED (4) Osteomyelitis Code(s): M86.9 - OSTEOMYELITIS, UNSPECIFIED Qualifiers: Osteomyelitis type: acute hematogenous Osteomyelitis location: unspecified site Qualified Code(s): M86.00 - Acute hematogenous osteomyelitis, unspecified site (5) Hypomagnesemia Code(s): E83.42 - HYPOMAGNESEMIA
--- NOTE | 2017-03-25 15:37 | PN ---
Progress Note, Physician History of Present Illness: OOB in chair No c/o back pain No fever/ chills Back on cefazolin - Current Medication List Current Medications: Active Medications Acetaminophen (Tylenol -) 650 mg PO Q4H PRN PRN Reason: PAIN Last Admin: 03/24/17 10:58 Dose: 650 mg Albuterol/Ipratropium (Duoneb -) 1 amp NEB Q4HPO [facility] Last Admin: 03/25/17 14:18 Dose: 1 amp Apixaban (Eliquis -) 5 mg PO BID [facility] Last Admin: 03/25/17 09:20 Dose: 5 mg Diltiazem HCl (Cardizem Cd -) 180 mg PO DAILY [facility] Last Admin: 03/25/17 14:32 Dose: 180 mg Docusate Sodium (Colace -) 100 mg PO BID [facility] Last Admin: 03/25/17 09:20 Dose: 100 mg Folic Acid (Folic Acid -) 1 mg PO DAILY [facility] Last Admin: 03/25/17 09:20 Dose: 1 mg Gabapentin (Neurontin -) 200 mg PO TID [facility] Last Admin: 03/25/17 14:30 Dose: 200 mg Cefazolin Sodium/Dextrose (Ancef 2 Gm Premixed Ivpb -) 50 mls @ 100 mls/hr IVPB Q8H-IV [facility] Last Admin: 03/25/17 09:19 Dose: 100 mls/hr Lactobacillus Acidophilus (Bacid -) 1 tab PO DAILY [facility] Last Admin: 03/25/17 09:19 Dose: 1 tab Melatonin (Melatonin) 3 mg PO HS [facility] Last Admin: 03/24/17 22:17 Dose: 3 mg Metoprolol Tartrate (Lopressor -) 50 mg PO BID [facility] Last Admin: 03/25/17 09:19 Dose: 50 mg Montelukast Sodium (Singulair -) 10 mg PO DAILY [facility] Last Admin: 03/25/17 09:19 Dose: 10 mg Nystatin (Mycostatin Cream -) 1 applic TP BID [facility] Last Admin: 03/25/17 09:21 Dose: 1 applic Ondansetron HCl (Zofran Injection) 4 mg IVPB Q6H PRN PRN Reason: NAUSEA Polyethylene Glycol (Miralax (For Daily Use) -) 17 gm PO BID [facility] Last Admin: 03/25/17 09:21 Dose: Not Given - Objective Vital Signs: Vital Signs Temperature 98.2 F 03/25/17 10:00 Pulse Rate 90 03/25/17 10:15 Respiratory Rate 19 03/25/17 10:00 Blood Pressure 144/86 03/25/17 10:00 O2 Sat by Pulse Oximetry (%) 96 03/25/17 10:15 Constitutional: Yes: No Distress Eyes: Yes: Conjunctiva Clear Cardiovascular: Yes: Regular Rate and Rhythm, S1, S2 Respiratory: Yes: Other (+ crepiations at bases bilaterally) Gastrointestinal: Yes: Normal Bowel Sounds, Soft, Abdomen, Obese. No: Tenderness Edema: Yes Labs: CBC, BMP 03/25/17 05:35 03/24/17 05:35 INR, PTT INR 2.18 (0.82-1.09) H D 03/21/17 15:30 Assessment/Plan MSSA bacteremia/ vertebral osteomyelitis S/P fever ? PICC related Tolerating cefazolin Will need new PICC to complete additional 4w IV antibiotic therapy
[2017-03-25] MEDS: MELATONIN 1 MG TABLET PO SCH (21:52)
[2017-03-26] MEDS: CEFAZOLIN 2 GM/D5W 50 ML IVPB SCH ×3 (01:42→17:50)
[2017-03-26] MEDS: ALBUTEROL SO4 2.5/IPRATROPIUM 0.5 INH SOL 3 ML VIAL.NEB. NEB SCH ×6 (01:57→22:45)
[2017-03-26] MEDS: GABAPENTIN 100 MG CAPSULE (FP) PO SCH ×3 (06:28→21:56)
[2017-03-26 07:43] LABS: BASOPHIL 0.7 % (0-2.0); EOSINOPHIL 5.8 % (0-4.5); MCHC 34.2 g/dl (32.0-35.9); MEAN CELL VOLUME 93.6 fl (80-96); MEAN PLT VOLUME 7.4 fl (7.5-11.1); NEUTROPHILS 73.5 % (42.8-82.8); PLATELET COUNT 379 K/MM3 (134-434); RDW 15.6 % (11.9-15.9); WHITE BLOOD COUNT 8.7 K/mm3 (4.0-10.0)
[2017-03-26 08:22] LABS: ANION GAP 8 (8-16); CO2 36 mmol/L (21-32); GLUCOSE,RANDOM 83 mg/dL (74-106)
[2017-03-26 08:25] LABS: CREATININE 0.5 mg/dL (0.7-1.3); MAGNESIUM 1.8 mg/dL (1.8-2.4)
[2017-03-26] MEDS ORDERED: PT OWN MED DRAWER 7, Y5N ONE ×5 (09:58→21:53)
[2017-03-26] MEDS: DOCUSATE SODIUM 100 MG CAPSULE (FP) PO SCH ×2 (10:03→21:57)
[2017-03-26] MEDS: APIXABAN 5 MG TABLET PO SCH ×2 (10:03→21:57)
[2017-03-26] MEDS: METOPROLOL TARTRATE 50 MG TABLET (FP) PO SCH ×2 (10:03→21:57)
[2017-03-26] MEDS: FOLIC ACID 1 MG TABLET (FP) PO SCH (10:03)
[2017-03-26] MEDS: LACTOBACILLUS ACIDOPHILUS 1 EACH TAB (FP) PO SCH (10:03)
[2017-03-26] MEDS: MONTELUKAST NA 10 MG TABLET PO SCH (10:03)
[2017-03-26] MEDS: POLYETHYLENE GLYCOL 3350 119 GM BTL PO SCH ×3 (10:04→22:00)
[2017-03-26] MEDS: NYSTATIN 100,000 UNIT/GM TOPICAL CREAM 15 GM TUBE TP SCH ×2 (10:05→22:00)
[2017-03-26] MEDS: FLUTICASONE/SALMETEROL 100 MCG/50 MCG DISKUS IH SCH ×2 (10:05→21:57)
--- NOTE | 2017-03-26 10:46 | PN ---
Progress Note, Physician History of Present Illness: Patient notes occasional dry cough (had been on advair in the past, but not using now). With coughing notes that back tightens up, but otherwise feeling OK. Anxious to get back to physical therapy. - Current Medication List Current Medications: Active Medications Acetaminophen (Tylenol -) 650 mg PO Q4H PRN PRN Reason: PAIN Last Admin: 03/24/17 10:58 Dose: 650 mg Albuterol/Ipratropium (Duoneb -) 1 amp NEB Q4HPO [facility] Last Admin: 03/26/17 10:08 Dose: 1 amp Apixaban (Eliquis -) 5 mg PO BID [facility] Last Admin: 03/26/17 10:03 Dose: 5 mg Diltiazem HCl (Cardizem Cd -) 180 mg PO DAILY [facility] Last Admin: 03/26/17 10:03 Dose: 180 mg Docusate Sodium (Colace -) 100 mg PO BID [facility] Last Admin: 03/26/17 10:03 Dose: 100 mg Folic Acid (Folic Acid -) 1 mg PO DAILY [facility] Last Admin: 03/26/17 10:03 Dose: 1 mg Gabapentin (Neurontin -) 200 mg PO TID [facility] Last Admin: 03/26/17 06:28 Dose: 200 mg Cefazolin Sodium/Dextrose (Ancef 2 Gm Premixed Ivpb -) 50 mls @ 100 mls/hr IVPB Q8H-IV [facility] Last Admin: 03/26/17 10:03 Dose: 100 mls/hr Lactobacillus Acidophilus (Bacid -) 1 tab PO DAILY [facility] Last Admin: 03/26/17 10:03 Dose: 1 tab Melatonin (Melatonin) 3 mg PO HS [facility] Last Admin: 03/25/17 21:52 Dose: 3 mg Metoprolol Tartrate (Lopressor -) 50 mg PO BID [facility] Last Admin: 03/26/17 10:03 Dose: 50 mg Montelukast Sodium (Singulair -) 10 mg PO DAILY [facility] Last Admin: 03/26/17 10:03 Dose: 10 mg Nystatin (Mycostatin Cream -) 1 applic TP BID [facility] Last Admin: 03/26/17 10:05 Dose: Not Given Ondansetron HCl (Zofran Injection) 4 mg IVPB Q6H PRN PRN Reason: NAUSEA Polyethylene Glycol (Miralax (For Daily Use) -) 17 gm PO BID [facility] Last Admin: 03/26/17 10:04 Dose: Not Given Fluticasone/Salmeterol (Advair 100mcg/50mcg -) 1 puff IH BID [facility] Last Admin: 03/26/17 10:05 Dose: Not Given - Objective Vital Signs: Vital Signs Temperature 999.0 F H 03/26/17 06:31 Pulse Rate 95 H 03/26/17 10:08 Respiratory Rate 16 03/26/17 06:31 Blood Pressure 156/83 03/26/17 06:31 O2 Sat by Pulse Oximetry (%) 99 03/26/17 10:08 Constitutional: Yes: No Distress, Calm Neck: Yes: Supple, Trachea Midline Cardiovascular: Yes: Regular Rate and Rhythm, S1, S2. No: Murmur Respiratory: Yes: Regular, CTA Bilaterally. No: Rales, Rhonchi, Wheezes Gastrointestinal: Yes: Normal Bowel Sounds, Soft. No: Distention, Tenderness Edema: No Neurological: Yes: Alert, Oriented Labs: CBC, BMP 03/26/17 06:00 03/26/17 06:00 INR, PTT INR 2.18 (0.82-1.09) H D 03/21/17 15:30 Assessment/Plan Current Active Problems Atrial fibrillation (Acute) Epidural abscess (Acute) Hypomagnesemia (Acute) Sepsis (Acute) Sepsis associated with vascular access catheter (Acute) h/o asthma -resume Advair -cont IV abx, PT
[2017-03-26] MEDS: FERROUS SO4 325 MG TABLET (FP) PO SCH (12:15)
[2017-03-26] MEDS: ASCORBIC ACID 500 MG TABLET (FP) PO SCH (12:15)
[2017-03-26] MEDS: MELATONIN 1 MG TABLET PO SCH (21:58)
[2017-03-26] MEDS ORDERED: diphenhydrAMINE HCL 25 MG CAPSULE (FP) PO ONE (23:00)
[2017-03-27] MEDS ORDERED: PT OWN MED DRAWER 7, Y5N ONE ×4 (01:28→21:26)
[2017-03-27] MEDS: CEFAZOLIN 2 GM/D5W 50 ML IVPB SCH ×3 (01:38→17:17)
[2017-03-27] MEDS: ALBUTEROL SO4 2.5/IPRATROPIUM 0.5 INH SOL 3 ML VIAL.NEB. NEB SCH ×6 (02:10→22:38)
[2017-03-27] MEDS: GABAPENTIN 100 MG CAPSULE (FP) PO SCH ×3 (06:03→21:27)
[2017-03-27 07:24] LABS: ALBUMIN 1.8 g/dl (3.4-5.0); ANION GAP 8 (8-16); CO2 35 mmol/L (21-32); CREATININE 0.5 mg/dL (0.7-1.3); GLUCOSE,RANDOM 85 mg/dL (74-106); SGOT/AST 17 U/L (15-37); SGPT/ALT 8 U/L (12-78)
[2017-03-27 07:26] LABS: ALK PHOS 83 U/L (45-117); BILIRUBIN,TOTAL 0.2 mg/dL (0.2-1.0); TOT PROT 7.2 g/dl (6.4-8.2)
[2017-03-27] MEDS: FOLIC ACID 1 MG TABLET (FP) PO SCH (10:46)
[2017-03-27] MEDS: ASCORBIC ACID 500 MG TABLET (FP) PO SCH (10:47)
[2017-03-27] MEDS: MONTELUKAST NA 10 MG TABLET PO SCH (10:47)
[2017-03-27] MEDS: METOPROLOL TARTRATE 50 MG TABLET (FP) PO SCH ×2 (10:47→21:28)
[2017-03-27] MEDS: APIXABAN 5 MG TABLET PO SCH ×2 (10:47→21:27)
[2017-03-27] MEDS: LACTOBACILLUS ACIDOPHILUS 1 EACH TAB (FP) PO SCH (10:47)
[2017-03-27] MEDS: FERROUS SO4 325 MG TABLET (FP) PO SCH (10:47)
[2017-03-27] MEDS: DOCUSATE SODIUM 100 MG CAPSULE (FP) PO SCH ×2 (10:47→21:27)
[2017-03-27] MEDS: NYSTATIN 100,000 UNIT/GM TOPICAL CREAM 15 GM TUBE TP SCH ×2 (10:48→21:31)
[2017-03-27] MEDS: FLUTICASONE/SALMETEROL 100 MCG/50 MCG DISKUS IH SCH ×2 (10:48→21:28)
[2017-03-27] MEDS: POLYETHYLENE GLYCOL 3350 119 GM BTL PO SCH ×2 (10:48→21:31)
--- NOTE | 2017-03-27 10:57 | PN ---
Progress Note, Physician History of Present Illness: Had some insomnia last night, otherwise feels OK. Notes continued constipation , even though getting Miralax. Started Advair yesterday, still notes dry cough occasionally. - Current Medication List Current Medications: Active Medications Acetaminophen (Tylenol -) 650 mg PO Q4H PRN PRN Reason: PAIN Last Admin: 03/24/17 10:58 Dose: 650 mg Albuterol/Ipratropium (Duoneb -) 1 amp NEB Q4HPO [facility] Last Admin: 03/27/17 10:16 Dose: 1 amp Apixaban (Eliquis -) 5 mg PO BID [facility] Last Admin: 03/27/17 10:47 Dose: 5 mg Ascorbic Acid (Vitamin C -) 500 mg PO DAILY [facility] Last Admin: 03/27/17 10:47 Dose: 500 mg Diltiazem HCl (Cardizem Cd -) 180 mg PO DAILY [facility] Last Admin: 03/27/17 10:47 Dose: 180 mg Diphenhydramine HCl (Benadryl -) 25 mg PO HS PRN PRN Reason: INSOMNIA Docusate Sodium (Colace -) 100 mg PO BID [facility] Last Admin: 03/27/17 10:47 Dose: 100 mg Ferrous Sulfate (Feosol -) 325 mg PO DAILY [facility] Last Admin: 03/27/17 10:47 Dose: 325 mg Folic Acid (Folic Acid -) 1 mg PO DAILY [facility] Last Admin: 03/27/17 10:46 Dose: 1 mg Gabapentin (Neurontin -) 200 mg PO TID [facility] Last Admin: 03/27/17 06:03 Dose: 200 mg Cefazolin Sodium/Dextrose (Ancef 2 Gm Premixed Ivpb -) 50 mls @ 100 mls/hr IVPB Q8H-IV [facility] Last Admin: 03/27/17 10:47 Dose: 100 mls/hr Lactobacillus Acidophilus (Bacid -) 1 tab PO DAILY [facility] Last Admin: 03/27/17 10:47 Dose: 1 tab Melatonin (Melatonin) 3 mg PO HS [facility] Last Admin: 03/26/17 21:58 Dose: Not Given Metoprolol Tartrate (Lopressor -) 50 mg PO BID [facility] Last Admin: 03/27/17 10:47 Dose: 50 mg Montelukast Sodium (Singulair -) 10 mg PO DAILY [facility] Last Admin: 03/27/17 10:47 Dose: 10 mg Nystatin (Mycostatin Cream -) 1 applic TP BID [facility] Last Admin: 03/27/17 10:48 Dose: 1 applic Ondansetron HCl (Zofran Injection) 4 mg IVPB Q6H PRN PRN Reason: NAUSEA Polyethylene Glycol (Miralax (For Daily Use) -) 17 gm PO BID [facility] Last Admin: 03/27/17 10:48 Dose: 17 gm Fluticasone/Salmeterol (Advair 100mcg/50mcg -) 1 puff IH BID [facility] Last Admin: 03/27/17 10:48 Dose: Not Given Senna (Senna -) 2 tab PO HS [facility] - Objective Vital Signs: Vital Signs Temperature 98.7 F 03/27/17 06:00 Pulse Rate 90 03/27/17 10:15 Respiratory Rate 18 03/27/17 06:00 Blood Pressure 154/90 03/27/17 06:00 O2 Sat by Pulse Oximetry (%) 100 03/27/17 10:15 Constitutional: Yes: No Distress, Calm Eyes: Yes: Conjunctiva Clear, EOM Intact HENT: Yes: Atraumatic, Normocephalic Neck: Yes: Supple, Trachea Midline Cardiovascular: Yes: Regular Rate and Rhythm, S1, S2. No: Murmur Respiratory: Yes: Regular, CTA Bilaterally. No: Rales, Rhonchi, Wheezes Gastrointestinal: Yes: Normal Bowel Sounds, Soft. No: Distention, Tenderness Edema: No Labs: CBC, BMP 03/27/17 05:45 INR, PTT INR 2.18 (0.82-1.09) H D 03/21/17 15:30 Assessment/Plan Current Active Problems Atrial fibrillation (Acute) Epidural abscess (Acute) Hypomagnesemia (Acute) Sepsis (Acute) Sepsis associated with vascular access catheter (Acute) h/o asthma -cont IV abx -plan for PICC line for continued IV abx
[2017-03-27 16:43] LABS: BASOPHIL 0.7 % (0-2.0); EOSINOPHIL 6.1 % (0-4.5); MCH 30.9 pg (25.7-33.7); MCHC 32.2 g/dl (32.0-35.9); MEAN CELL VOLUME 96.1 fl (80-96); MEAN PLT VOLUME 7.6 fl (7.5-11.1); NEUTROPHILS 71.1 % (42.8-82.8); PLATELET COUNT 368 K/MM3 (134-434); RDW 15.8 % (11.9-15.9); WHITE BLOOD COUNT 8.3 K/mm3 (4.0-10.0)
[2017-03-27] MEDS: diphenhydrAMINE HCL 25 MG CAPSULE (FP) PO PRN (21:27)
[2017-03-27] MEDS: SENNOSIDES 8.6MG TABLET (FP) PO SCH (21:27)
[2017-03-27] MEDS: MELATONIN 1 MG TABLET PO SCH (21:31)
[2017-03-28] MEDS: ALBUTEROL SO4 2.5/IPRATROPIUM 0.5 INH SOL 3 ML VIAL.NEB. NEB SCH ×6 (02:10→22:29)
[2017-03-28] MEDS: CEFAZOLIN 2 GM/D5W 50 ML IVPB SCH ×3 (02:24→17:54)
[2017-03-28] MEDS: GABAPENTIN 100 MG CAPSULE (FP) PO SCH ×3 (06:17→21:58)
[2017-03-28 07:20] LABS: BASOPHIL 0.7 % (0-2.0); EOSINOPHIL 6.1 % (0-4.5); MCHC 33.1 g/dl (32.0-35.9); MEAN CELL VOLUME 93.7 fl (80-96); MEAN PLT VOLUME 7.2 fl (7.5-11.1); NEUTROPHILS 71.6 % (42.8-82.8); PLATELET COUNT 373 K/MM3 (134-434); RDW 15.6 % (11.9-15.9); WHITE BLOOD COUNT 9.1 K/mm3 (4.0-10.0)
[2017-03-28 08:14] LABS: ALBUMIN 1.9 g/dl (3.4-5.0); ALK PHOS 88 U/L (45-117); ANION GAP 5 (8-16); BILIRUBIN,TOTAL 0.2 mg/dL (0.2-1.0); CALCIUM 8.9 mg/dL (8.5-10.1); CO2 35 mmol/L (21-32); CREATININE 0.6 mg/dL (0.7-1.3); GLUCOSE,RANDOM 79 mg/dL (74-106); SGOT/AST 17 U/L (15-37); SGPT/ALT 9 U/L (12-78); TOT PROT 7.2 g/dl (6.4-8.2)
[2017-03-28] MEDS: FLUTICASONE/SALMETEROL 100 MCG/50 MCG DISKUS IH SCH ×2 (09:51→22:00)
[2017-03-28] MEDS: LACTOBACILLUS ACIDOPHILUS 1 EACH TAB (FP) PO SCH (09:51)
[2017-03-28] MEDS: DOCUSATE SODIUM 100 MG CAPSULE (FP) PO SCH ×2 (09:52→21:59)
[2017-03-28] MEDS: NYSTATIN 100,000 UNIT/GM TOPICAL CREAM 15 GM TUBE TP SCH ×2 (09:52→22:00)
[2017-03-28] MEDS: METOPROLOL TARTRATE 50 MG TABLET (FP) PO SCH ×2 (09:52→21:58)
[2017-03-28] MEDS: FOLIC ACID 1 MG TABLET (FP) PO SCH (09:52)
[2017-03-28] MEDS: ASCORBIC ACID 500 MG TABLET (FP) PO SCH (09:52)
[2017-03-28] MEDS: APIXABAN 5 MG TABLET PO SCH ×2 (09:52→22:00)
[2017-03-28] MEDS: MONTELUKAST NA 10 MG TABLET PO SCH (09:52)
[2017-03-28] MEDS: FERROUS SO4 325 MG TABLET (FP) PO SCH (09:52)
[2017-03-28] MEDS: POLYETHYLENE GLYCOL 3350 119 GM BTL PO SCH ×2 (09:53→21:59)
--- NOTE | 2017-03-28 10:04 | PN ---
Progress Note (short form) - Note Progress Note: Patient with admission for possible recurrent sepsis but only 1 blood C/S from PICC line was +. Back onAcef 2 GM TID. Had anemia last week (Hb 6.7) requiring 1 unit pc. Hb has been stable since then at 8.6 but 2nd stool guiac was positive. Will get GI opinion. he has lost some ground with ambulation here compared to [facility] Rec: transfer back there with new PICC line placed as Rx will continue thru . He only walked X1 30 feet Tuesday. He wants to go back to [place]. On Exam: Vital Signs Temp 97.9 F 03/28/17 09:49 Pulse 110 H 03/28/17 09:49 Resp 19 03/28/17 09:49 BP 150/98 03/28/17 09:49 Pulse Ox 96 03/27/17 21:00 Intake & Output 03/27/17 03/27/17 03/28/17 11:59 23:59 11:59 Intake Total 400 340 270 Output Total 800 1125 Balance -400 -785 270 Intake: IVPB 100 100 50 Oral 300 240 220 Output: Urine 800 1125 Void 800 1125 Other: Voiding Method Urinal Urinal Urinal Bowel Movement Yes # Bowel Movements 1 Alert Chest; some rhonchi at bases Cor Reg Abd Soft Ext: SCD's; no edema Abnormal Lab Results 03/27/17 03/28/17 03/28/17 05:45 05:40 05:40 RBC 2.80 L 2.78 L Hgb 8.7 L 8.6 L Hct 26.9 L 26.0 L MCV 96.1 H MPV 7.2 L Eosinophils % 6.1 H 6.1 H Chloride 96 L Carbon Dioxide 35 H Anion Gap 5 L Creatinine 0.6 L ALT 9 L Albumin 1.9 L IMP: + Blood C/S X1 from PICC line with no evidence of recurrent sepsis. Hx MSAA sepsis Acute Osteomyelitis and Discitis and Epidural collection Paroxysmal A. Fib Anemia and + Stool Guiac Plan: GI rrange for transfer back to [place] F/U Lab PICC line of day of transfer Problem List - Problems (1) Sepsis associated with vascular access catheter Code(s): T82.7XXA - INFECT/INFLM REACT D/T OTH CARDI/VASC DEV/IMPLNT/GRFT, INIT A41.9 - SEPSIS, UNSPECIFIED ORGANISM Qualifiers: Encounter type: initial encounter Qualified Code(s): T82.7XXA - Infection and inflammatory reaction due to other cardiac and vascular devices, implants and grafts, initial encounter; A41.9 - Sepsis, unspecified organism (2) Atrial fibrillation Code(s): I48.91 - UNSPECIFIED ATRIAL FIBRILLATION Qualifiers: Atrial fibrillation type: paroxysmal Qualified Code(s): I48.0 - Paroxysmal atrial fibrillation (3) Anemia Code(s): D64.9 - ANEMIA, UNSPECIFIED (4) Osteomyelitis Code(s): M86.9 - OSTEOMYELITIS, UNSPECIFIED Qualifiers: Osteomyelitis type: acute hematogenous Osteomyelitis location: unspecified site Qualified Code(s): M86.00 - Acute hematogenous osteomyelitis, unspecified site (5) Hypomagnesemia Code(s): E83.42 - HYPOMAGNESEMIA
[2017-03-28] MEDS ORDERED: FUROSEMIDE 40 MG/4 ML INJECTABLE VIAL IVPB ONE (10:06)
--- NOTE | 2017-03-28 11:28 | CON.GI ---
Consult Consult Specialty:: GI Referred by:: Dr. Galeano Reason for Consultation:: Anemia - History of Present Illness Chief Complaint: I was sent from rehab History of Present Illness: 77M recently admitted from [facility] for evaluation of fevers following an admission 03/05 to [facility]. At that time he was treated for MSSA bacteremia with epidural abscess noted. He has been anemic and transfused during this admission. He has been started on eliquis for PAF and Stool for occult blood has been negative aside from one taken 03/25/17 that was positive. He recalls having strained bowel movements during that time. Mr. Santacruz denies abdominal pain, dysphjagia, odynophagia. There has been no benson rectal bleeding or melena. He has followed with Drs. Mcknight / Desiree and believes that his last EGD/Colonoscopy was about 7 years ago and was "OK". His maternal GM with a history of colon cancer. - History Source Limitations to Obtaining History: No Limitations - Past Medical History Cardio/Vascular: Yes: HTN Pulmonary: Yes: COPD Gastrointestinal: Yes: Other (history of choledocholithiasis s/p ERCP with Dr. 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[employer] of : [employer] History of Recent Travel: Yes (as above) Home Medications - Allergies Allergies/Adverse Reactions: Allergies Allergy/AdvReac Type Severity Reaction Status Date / Time aloe Allergy Severe Rash Verified 03/21/17 14:21 aloe vera Allergy Severe Rash Verified 03/21/17 14:21 - Home Medications Home Medications: Ambulatory Orders Montelukast Na [Singulair -] 10 mg PO DAILY 02/10/17 Acetaminophen [Tylenol .Regular Strength -] 650 mg PO Q4H PRN #0 tablet Apixaban [Eliquis -] 5 mg PO BID tablet 03/01/17 Diltiazem Cd [Cardizem Cd -] 180 mg PO DAILY cap 03/01/17 Docusate Sodium [Colace -] 100 mg PO BID cap 03/01/17 Ertapenem Sodium [Invanz -] 1 gm IVPB DAILY vial 03/01/17 Folic Acid - 1 mg PO DAILY tablet 03/01/17 Gabapentin [Neurontin -] 200 mg PO TID cap 03/01/17 Metoprolol Tartrate [Lopressor -] 50 mg PO BID tablet 03/01/17 Nystatin Cream [Mycostatin Cream -] 1 applic TP BID applic 03/01/17 Polyethylene Glycol 3350 [Miralax 119 gm Btl -] 17 gm PO BID #1 bottle 03/01/17 Ipratropium/Albuterol Sulfate [Iprat-Albut 0.5-3(2.5) mg/3 ml] 3 ml IH Q4H 03/21 Melatonin 3 mg PO HS 03/21/17 Cefazolin 03/22/17 Ferrous Fumarate/Ascorbic Acid [Gary-Sequels 65-25 mg Caplet] 1 tablet PO DAILY 03/22/17 Lidocaine 5% Patch [Lidoderm Patch -] 1 patch TP DAILY 03/22/17 Omeprazole 20 mg PO DAILY 03/22/17 Trazodone HCl [Desyrel -] 100 mg PO HS 03/22/17 Voltaren applic TP QID 03/22/17 Family Disease History - Family Disease History Family Disease History: Other: Father ( 44: CVA), Mother ( 93: old age) , Sister (2 sisters, healthy) Review of Systems - Review of Systems Constitutional: denies: Chills Neck: denies: Tenderness Cardiovascular: denies: Chest Pain, Palpitations, Shortness of Breath Respiratory: denies: Cough Gastrointestinal: reports: Constipation. denies: Abdominal Pain, Dysphagia, Melena, Nausea, Rectal Bleeding, Vomiting Musculoskeletal: reports: Joint Pain (knees) Physical Exam-GI Vital Signs: Vital Signs Temperature 97.9 F 03/28/17 09:49 Pulse Rate 92 H 03/28/17 10:20 Respiratory Rate 19 03/28/17 09:49 Blood Pressure 150/98 03/28/17 09:49 O2 Sat by Pulse Oximetry (%) 96 03/28/17 10:20 Constitutional: Yes: Calm Eyes: No: Sclera Icterus Respiratory: Yes: CTA Bilaterally Gastrointestinal Inspection: Yes: Scars (RLQ scar). No: Distention ...Auscultate: Yes: Normoactive Bowel Sounds ...Palpate: No: Hepatomegaly, Splenomegaly, Tenderness ...Rectal Exam: Yes: Guaiac Negative (Light brown stool.), Other (2+ Prostate). No: Mass Edema: Yes (Ballotment right knee) Neurological: Yes: Alert, Oriented Psychiatric: Yes: Alert, Oriented Labs: CBC, BMP 03/28/17 05:40 03/28/17 05:40 INR, PTT INR 2.18 (0.82-1.09) H D 03/21/17 15:30 Hepatic Panel Total Bilirubin 0.2 mg/dL (0.2-1.0) 03/28/17 05:40 Direct Bilirubin 0.2 mg/dL (0.0-0.2) 03/21/17 15:14 AST 17 U/L (15-37) 03/28/17 05:40 ALT 9 U/L (12-78) L 03/28/17 05:40 Alkaline Phosphatase 88 U/L (45-117) 03/28/17 05:40 Albumin 1.9 g/dl (3.4-5.0) L 03/28/17 05:40 Problem List - Problems (1) Anemia Assessment/Plan: No overt bleeding noted and patient guaiac negative on my exam. I did explain to Mr. Santacruz that he did have a fecal occult blood test that was positive. I explained that while it could reflect blood from irritated internal hemorrhoids given his history of strained bowel movements, alternate causes would need to be included such as colon polyps, colon cancers. after discussion I did offer colonoscopy while an inpatient with iron sanchez however Mr. Santacruz expressed wishes not to proceed with evaluation at this time and stated that he wanted to go back to rehab. I will leave discharge instructions to follow-up with Dr. Ramírez as an outpatient He is tachycardic on my exam of ? etiology As per our discussion today ballottment of the right knee raised the question of right knee effusion Code(s): D64.9 - ANEMIA, UNSPECIFIED Qualifiers: Anemia type: unspecified type Qualified Code(s): D64.9 - Anemia, unspecified (2) Enlarged prostate Assessment/Plan: Noted on exam. Mr. Santacruz was unaware of this and denies any urinary symptomatology. This can be evaluated as an outpatient Code(s): N40.0 - BENIGN PROSTATIC HYPERPLASIA WITHOUT LOWER URINRY TRACT SYMP
[2017-03-28] MEDS ORDERED: PICC LINE 8 ML FLUSH PROTOCOL IVPUSH PRN (18:52)
[2017-03-28] MEDS ORDERED: PT OWN MED DRAWER 7, Y5N ONE ×2 (21:43→22:42)
[2017-03-28] MEDS: diphenhydrAMINE HCL 25 MG CAPSULE (FP) PO PRN (21:58)
[2017-03-28] MEDS: MELATONIN 1 MG TABLET PO SCH (21:59)
[2017-03-28] MEDS: SENNOSIDES 8.6MG TABLET (FP) PO SCH (21:59)
[2017-03-29] MEDS: ALBUTEROL SO4 2.5/IPRATROPIUM 0.5 INH SOL 3 ML VIAL.NEB. NEB SCH ×6 (02:00→22:34)
[2017-03-29] MEDS: CEFAZOLIN 2 GM/D5W 50 ML IVPB SCH ×3 (02:21→17:06)
[2017-03-29] MEDS: GABAPENTIN 100 MG CAPSULE (FP) PO SCH ×3 (06:23→21:58)
[2017-03-29 07:12] LABS: BASOPHIL 0.8 % (0-2.0); EOSINOPHIL 4.9 % (0-4.5); MCH 31.2 pg (25.7-33.7); MCHC 33.3 g/dl (32.0-35.9); MEAN CELL VOLUME 93.7 fl (80-96); MEAN PLT VOLUME 7.2 fl (7.5-11.1); NEUTROPHILS 68.5 % (42.8-82.8); PLATELET COUNT 390 K/MM3 (134-434); RDW 15.6 % (11.9-15.9); WHITE BLOOD COUNT 8.6 K/mm3 (4.0-10.0)
[2017-03-29 07:58] LABS: INR 1.78 (0.82-1.09); PROTHROMBIN TIME (PATIENT) 19.8 SEC (9.98-11.88)
--- NOTE | 2017-03-29 08:46 | PN ---
Progress Note (short form) - Note Progress Note: NEUROSURGERY Minimal pain Daughter at bedside PE: Tmax 99.6;VSS HEENT- NC/AT; Neck- supple; Cor- RR; Lungs- no wheezes; Abd- obese, benign; Ext - No sign of DVT CN- intact; Motor- 5/5 except L IP 4+, L Quad/EHL/TA/gastroc/inv/ev 4; Sensation - diminished PP/LT L L4-5; DTR- hyporeflexic B Back- minimal tenderness Chronic L4-5 spondylolisthesis with stenosis and mechanical LBP and L L4-5 radiculopathy MSSA bacteremia with L4-5 discitis/osteomyelitis s/p 5-6 weeks of iv abx - on Cefazolin per ID WBC 8.6 Clinically improved Minimal symptoms from LS spine DVT prophylaxis PT-OOB for strength training, and eventually back to rehab ID f/u
[2017-03-29] MEDS ORDERED: PT OWN MED DRAWER 7, Y5N ONE ×3 (09:39→22:41)
[2017-03-29] MEDS: FERROUS SO4 325 MG TABLET (FP) PO SCH (09:59)
[2017-03-29] MEDS: FLUTICASONE/SALMETEROL 100 MCG/50 MCG DISKUS IH SCH ×2 (09:59→21:58)
[2017-03-29] MEDS: METOPROLOL TARTRATE 50 MG TABLET (FP) PO SCH ×2 (09:59→21:58)
[2017-03-29] MEDS: FOLIC ACID 1 MG TABLET (FP) PO SCH (09:59)
[2017-03-29] MEDS: APIXABAN 5 MG TABLET PO SCH ×2 (09:59→21:57)
[2017-03-29] MEDS: ASCORBIC ACID 500 MG TABLET (FP) PO SCH (09:59)
[2017-03-29] MEDS: MONTELUKAST NA 10 MG TABLET PO SCH (09:59)
[2017-03-29] MEDS: LACTOBACILLUS ACIDOPHILUS 1 EACH TAB (FP) PO SCH (09:59)
[2017-03-29] MEDS: NYSTATIN 100,000 UNIT/GM TOPICAL CREAM 15 GM TUBE TP SCH ×2 (10:00→21:58)
[2017-03-29] MEDS: DOCUSATE SODIUM 100 MG CAPSULE (FP) PO SCH ×2 (10:26→21:58)
[2017-03-29] MEDS: POLYETHYLENE GLYCOL 3350 119 GM BTL PO SCH ×2 (10:27→21:58)
--- NOTE | 2017-03-29 10:56 | PN ---
Progress Note, Physician Chief Complaint: Feeling better; sitting at bedside. History of Present Illness: Patient with history of Sepsis and MSSA scepticemia is improving after a revisit to the hospital for temps and hypotension. 1 Blood C/S from the PICC line was + but all other C/S were negative. He is back on Ancef 2GM IVPB Q8H thru 04/16/17. To resume PT at [facility]. Appreciate F/U from ADITHYA LOPEZ yesterday. Hb up to 9.1GM today. - Current Medication List Current Medications: Active Medications Acetaminophen (Tylenol -) 650 mg PO Q4H PRN PRN Reason: PAIN Last Admin: 03/24/17 10:58 Dose: 650 mg Albuterol/Ipratropium (Duoneb -) 1 amp NEB Q4HPO [facility] Last Admin: 03/29/17 06:45 Dose: 1 amp Apixaban (Eliquis -) 5 mg PO BID [facility] Last Admin: 03/29/17 09:59 Dose: 5 mg Ascorbic Acid (Vitamin C -) 500 mg PO DAILY [facility] Last Admin: 03/29/17 09:59 Dose: 500 mg Diltiazem HCl (Cardizem Cd -) 240 mg PO DAILY [facility] Last Admin: 03/29/17 09:59 Dose: 240 mg Diphenhydramine HCl (Benadryl -) 25 mg PO HS PRN PRN Reason: INSOMNIA Last Admin: 03/28/17 21:58 Dose: 25 mg Docusate Sodium (Colace -) 100 mg PO BID [facility] Last Admin: 03/29/17 10:26 Dose: Not Given Ferrous Sulfate (Feosol -) 325 mg PO DAILY [facility] Last Admin: 03/29/17 09:59 Dose: 325 mg Folic Acid (Folic Acid -) 1 mg PO DAILY [facility] Last Admin: 03/29/17 09:59 Dose: 1 mg Gabapentin (Neurontin -) 200 mg PO TID [facility] Last Admin: 03/29/17 06:23 Dose: 200 mg IV Flush (Picc Line Flush) 8 ml IVPUSH PRN PRN PRN Reason: Protocol Cefazolin Sodium/Dextrose (Ancef 2 Gm Premixed Ivpb -) 50 mls @ 100 mls/hr IVPB Q8H-IV [facility] Last Admin: 03/29/17 09:59 Dose: 100 mls/hr Lactobacillus Acidophilus (Bacid -) 1 tab PO DAILY [facility] Last Admin: 03/29/17 09:59 Dose: 1 tab Melatonin (Melatonin) 3 mg PO HS [facility] Last Admin: 03/28/17 21:59 Dose: Not Given Metoprolol Tartrate (Lopressor -) 50 mg PO BID [facility] Last Admin: 03/29/17 09:59 Dose: 50 mg Montelukast Sodium (Singulair -) 10 mg PO DAILY [facility] Last Admin: 03/29/17 09:59 Dose: 10 mg Nystatin (Mycostatin Cream -) 1 applic TP BID [facility] Last Admin: 03/29/17 10:00 Dose: 1 applic Ondansetron HCl (Zofran Injection) 4 mg IVPB Q6H PRN PRN Reason: NAUSEA Polyethylene Glycol (Miralax (For Daily Use) -) 17 gm PO BID [facility] Last Admin: 03/29/17 10:27 Dose: Not Given Fluticasone/Salmeterol (Advair 100mcg/50mcg -) 1 puff IH BID [facility] Last Admin: 03/29/17 09:59 Dose: 1 puff Senna (Senna -) 2 tab PO [facility] Last Admin: 03/28/17 21:59 Dose: Not Given - Objective Vital Signs: Vital Signs Temperature 98.2 F 03/29/17 06:00 Pulse Rate 93 H 03/29/17 06:00 Respiratory Rate 18 03/29/17 06:00 Blood Pressure 132/78 03/29/17 06:00 O2 Sat by Pulse Oximetry (%) 96 03/28/17 21:00 Constitutional: Yes: Calm, Pallor Cardiovascular: Yes: Regular Rate and Rhythm Respiratory: Yes: Regular, Rhonchi (Few at both bases.) Gastrointestinal: Yes: Soft Genitourinary: No: Fragoso Present Edema: No Neurological: Yes: Alert, Oriented Labs: CBC, BMP 03/29/17 05:35 03/28/17 05:40 INR, PTT INR 1.78 (0.82-1.09) H 03/29/17 05:35 Problem List - Problems (1) Sepsis associated with vascular access catheter Assessment/Plan: [place] Blood C/S negative; on Ancef2 GM IVPB Q8H. Code(s): T82.7XXA - INFECT/INFLM REACT D/T OTH CARDI/VASC DEV/IMPLNT/GRFT, INIT A41.9 - SEPSIS, UNSPECIFIED ORGANISM Qualifiers: Encounter type: initial encounter Qualified Code(s): T82.7XXA - Infection and inflammatory reaction due to other cardiac and vascular devices, implants and grafts, initial encounter; A41.9 - Sepsis, unspecified organism (2) Atrial fibrillation Assessment/Plan: Paroxysmal A. Fib on NOAC. Code(s): I48.91 - UNSPECIFIED ATRIAL FIBRILLATION Qualifiers: Atrial fibrillation type: paroxysmal Qualified Code(s): I48.0 - Paroxysmal atrial fibrillation (3) Anemia Assessment/Plan: Hb up to 9.1 GM; on FeSol and VitC Code(s): D64.9 - ANEMIA, UNSPECIFIED Qualifiers: Anemia type: unspecified type Qualified Code(s): D64.9 - Anemia, unspecified (4) Osteomyelitis Assessment/Plan: Continues on IV antibiotics;No back pain. Code(s): M86.9 - OSTEOMYELITIS, UNSPECIFIED Qualifiers: Osteomyelitis type: acute hematogenous Osteomyelitis location: unspecified site Qualified Code(s): M86.00 - Acute hematogenous osteomyelitis, unspecified site (5) Hypomagnesemia Assessment/Plan: WNL Code(s): E83.42 - HYPOMAGNESEMIA
[2017-03-29] MEDS: ACETAMINOPHEN 325 MG TABLET (FP) PO PRN (16:22)
[2017-03-29] MEDS: SENNOSIDES 8.6MG TABLET (FP) PO SCH (21:59)
[2017-03-29] MEDS: MELATONIN 1 MG TABLET PO SCH (21:59)
[2017-03-30] MEDS: CEFAZOLIN 2 GM/D5W 50 ML IVPB SCH ×2 (01:37→09:18)
[2017-03-30] MEDS: ALBUTEROL SO4 2.5/IPRATROPIUM 0.5 INH SOL 3 ML VIAL.NEB. NEB SCH ×2 (01:38→06:19)
[2017-03-30] MEDS: GABAPENTIN 100 MG CAPSULE (FP) PO SCH (05:26)
--- NOTE | 2017-03-30 08:38 | DS ---
Physical Examination Vital Signs: Vital Signs Temperature 98.6 F 03/30/17 06:00 Pulse Rate 91 H 03/30/17 06:00 Respiratory Rate 18 03/30/17 06:00 Blood Pressure 139/83 03/30/17 06:00 O2 Sat by Pulse Oximetry (%) 96 03/29/17 21:00 Constitutional: Yes: Calm Eyes: Yes: Conjunctiva Clear Cardiovascular: Yes: Regular Rate and Rhythm Respiratory: Yes: Diminished, Rhonchi (few rhonchi at bases) Gastrointestinal: Yes: Soft. No: Tenderness Renal/: No: Fragoso Present Edema: No Neurological: Yes: Alert, Oriented Labs: CBC, BMP 03/29/17 05:35 03/28/17 05:40 Discharge Summary Reason For Visit: LACTIC ACIDOSIS Current Active Problems Atrial fibrillation (Acute) Enlarged prostate (Acute) Epidural abscess (Acute) Hypomagnesemia (Acute) Sepsis (Acute) Sepsis associated with vascular access catheter (Acute) Anemia(acute) Blood transfusion Hypertension(acute) Procedures: Principal: IV antibiotics, Blood Cultures; removal PICC line Other Procedures: Followup lab, blood transfusion; F/U Xrays and PT. Hospital Course: Slow to improve and scheduledto go back to [facility]. PICC line reinserted yesterday. Condition: Stable - Instructions Diet, Activity, Other Instructions: Regular diet with no added salt. Physical therapy several times a day as he progresses. Please do a CBC twice a week to check on hemoglobin. Nasal O2 2L/min prn Ancef is to continue 2 g IV every 8 hours through April 16, 2017. Referrals: Josh Galeano MD [Primary Care Provider] - Liat Ramírez MD [Staff Physician] - Disposition: TRANSFER ACUTE CARE/OTHER HOSP - Home Medications Comprehensive Discharge Medication List: Ambulatory Orders Montelukast Na [Singulair -] 10 mg PO DAILY 02/10/17 Acetaminophen [Tylenol .Regular Strength -] 650 mg PO Q4H PRN #0 tablet Apixaban [Eliquis -] 5 mg PO BID tablet 03/01/17 Docusate Sodium [Colace -] 100 mg PO BID cap 03/01/17 Folic Acid - 1 mg PO DAILY tablet 03/01/17 Gabapentin [Neurontin -] 200 mg PO TID cap 03/01/17 Metoprolol Tartrate [Lopressor -] 50 mg PO BID tablet 03/01/17 Nystatin Cream [Mycostatin Cream -] 1 applic TP BID applic 03/01/17 Polyethylene Glycol 3350 [Miralax 119 gm Btl -] 17 gm PO BID #1 bottle 03/01/17 Ipratropium/Albuterol Sulfate [Iprat-Albut 0.5-3(2.5) mg/3 ml] 3 ml IH Q4H 03/21 Melatonin 3 mg PO HS 03/21/17 Omeprazole 20 mg PO DAILY 03/22/17 Ascorbic Acid [Vitamin C -] 500 mg PO DAILY tablet 03/29/17 Cefazolin 2 gm/D5w [Ancef 2 gm Premixed Ivpb -] 50 ml IVPB Q8H-IV ml 03/29/17 Diltiazem Cd [Cardizem Cd -] 240 mg PO DAILY #30 cap 03/29/17 Diphenhydramine HCl [Benadryl Capsule -] 25 mg PO HS PRN #0 cap 03/29/17 Ferrous Sulfate [Feosol] 325 mg PO DAILY tab 03/29/17 Lactobacillus Acidophilus [Bacid -] 1 tab PO DAILY tab 03/29/17 Picc Line Flush [Picc Line Flush -] 8 ml IVPUSH PRN PRN #0 ml 03/29/17 Salmeterol/Fluticasone [Advair 100Mcg/50Mcg -] 1 puff IH BID inhaler 03/29/17 Sennosides [Senna -] 2 tab PO HS tab 03/29/17
[2017-03-30] MEDS ORDERED: PT OWN MED DRAWER 7, Y5N ONE (08:50)
[2017-03-30] MEDS: FERROUS SO4 325 MG TABLET (FP) PO SCH (09:06)
[2017-03-30] MEDS: MONTELUKAST NA 10 MG TABLET PO SCH (09:06)
[2017-03-30] MEDS: METOPROLOL TARTRATE 50 MG TABLET (FP) PO SCH (09:06)
[2017-03-30] MEDS: LACTOBACILLUS ACIDOPHILUS 1 EACH TAB (FP) PO SCH (09:06)
[2017-03-30] MEDS: ASCORBIC ACID 500 MG TABLET (FP) PO SCH (09:06)
[2017-03-30] MEDS: FOLIC ACID 1 MG TABLET (FP) PO SCH (09:06)
[2017-03-30] MEDS: APIXABAN 5 MG TABLET PO SCH (09:06)
[2017-03-30] MEDS: POLYETHYLENE GLYCOL 3350 119 GM BTL PO SCH (09:07)
[2017-03-30] MEDS: FLUTICASONE/SALMETEROL 100 MCG/50 MCG DISKUS IH SCH (09:07)
[2017-03-30] MEDS: DOCUSATE SODIUM 100 MG CAPSULE (FP) PO SCH (09:07)
[2017-03-30] MEDS: NYSTATIN 100,000 UNIT/GM TOPICAL CREAM 15 GM TUBE TP SCH (09:08)
[2017-03-30 09:41] VITALS: BP 116/70; PULSE 98; TEMP 98.9
== END 2017-03-30 10:07 | DRG 314 ==
LOC: JER 14:03 → JERBED 17:41 → J4S 19:02
PROVIDERS: ADMIT Internal Medicine; ATTEND Internal Medicine
PROC: 02HV33Z Insertion of Infusion Device into Superior Vena Cava, Percutaneous Approach (ICD-10-PCS; principal; 2017-03-29)
PROC: B5181ZA Fluoroscopy of Superior Vena Cava using Low Osmolar Contrast, Guidance (ICD-10-PCS; 2017-03-29)
DX: T82.7XXA Infection and inflammatory reaction due to other cardiac and vascular devices, implants and grafts, initial encounter (principal); A41.9 Sepsis, unspecified organism; E87.2 Acidosis; M86.9 Osteomyelitis, unspecified; Y83.8 Other surgical procedures as the cause of abnormal reaction of the patient, or of later complication, without mention of misadventure at the time of the procedure; J44.9 Chronic obstructive pulmonary disease, unspecified; I10 Essential (primary) hypertension; D64.9 Anemia, unspecified; I48.0 Paroxysmal atrial fibrillation; Z79.01 Long term (current) use of anticoagulants; I71.2 Thoracic aortic aneurysm, without rupture; M43.16 Spondylolisthesis, lumbar region; E83.42 Hypomagnesemia; N40.0 Benign prostatic hyperplasia without lower urinary tract symptoms; M46.46 Discitis, unspecified, lumbar region
CPT/HCPCS: 36415; 36430; 36569; 71010-TC; 77001-TC; 80048; 80053; 81003; 81015; 82248; 82272; 82550; 82607; 82728; 82746; 83540; 83550; 83605; 83735; 84100; 84466; 84484; 85025; 85610; 85651; 85730; 86140; 86850; 86900; 86901; 86922; 87040; 87070; 87086; 93005; 93010; 93306-TC; 94640; 97116-GP; 97161-GP; 99285-25; C1751; G0480; P9038; P9058

== ENCOUNTER 2017-04-05 14:20 | Inpatient (IN) | payer OTHER, BC ==
--- NOTE | 2017-04-05 15:01 | PDOC ---
History of Present Illness - General Chief Complaint: SIRS, Suspected/Possible Stated Complaint: PICC LINE NOT WORKING Time Seen by Provider: 04/05/17 14:27 History Source: Patient - History of Present Illness Associated Symptoms: denies: chest pain, cough, fever/chills, nausea/vomiting, seizure, shortness of breath, weakness Past History - Past Medical History Allergies/Adverse Reactions: Allergies Allergy/AdvReac Type Severity Reaction Status Date / Time aloe Allergy Severe Rash Verified 03/21/17 14:21 aloe vera Allergy Severe Rash Verified 03/21/17 14:21 Home Medications: Ambulatory Orders Montelukast Na [Singulair -] 10 mg PO DAILY 02/10/17 Acetaminophen [Tylenol .Regular Strength -] 650 mg PO Q4H PRN #0 tablet Apixaban [Eliquis -] 5 mg PO BID tablet 03/01/17 Folic Acid - 1 mg PO DAILY tablet 03/01/17 Gabapentin [Neurontin -] 200 mg PO TID cap 03/01/17 Metoprolol Tartrate [Lopressor -] 50 mg PO BID tablet 03/01/17 Nystatin Cream [Mycostatin Cream -] 1 applic TP BID applic 03/01/17 Ipratropium/Albuterol Sulfate [Iprat-Albut 0.5-3(2.5) mg/3 ml] 3 ml IH Q4H 03/21 Melatonin 3 mg PO HS 03/21/17 Omeprazole 20 mg PO DAILY 03/22/17 Ascorbic Acid [Vitamin C -] 500 mg PO DAILY tablet 03/29/17 Diltiazem Cd [Cardizem Cd -] 240 mg PO DAILY #30 cap 03/29/17 Diphenhydramine HCl [Benadryl Capsule -] 25 mg PO HS PRN #0 cap 03/29/17 Ferrous Sulfate [Feosol] 325 mg PO DAILY tab 03/29/17 Lactobacillus Acidophilus [Bacid -] 1 tab PO DAILY tab 03/29/17 Salmeterol/Fluticasone [Advair 100Mcg/50Mcg -] 1 puff IH BID inhaler 03/29/17 Anemia: Yes Asthma: Yes Cardiac Disorders: Yes (p. AFIB, THORACIC AORTIC ANEURYSM) COPD: Yes HTN: Yes - Surgical History Abdominal Surgery: Yes (HERNIA) - Psycho/Social/Smoking Cessation Hx Suicidal Ideation: No Smoking History: Unknown if ever smoked Have you smoked in the past 12 months: No Hx Alcohol Use: Yes (Wine with dinner) Drug/Substance Use Hx: No Substance Use Type: None Hx Substance Use Treatment: No Review of Systems - Review of Systems Constitutional: No: Chills, Fever Respiratory: No: Cough, Shortness of Breath Cardiac (ROS): No: Chest Pain ABD/GI: No: Nausea, Vomiting, Abdominal cramping Musculoskeletal: Yes: Back Pain Neurological: No: Numbness, Tingling, Weakness *Physical Exam - Vital Signs Last Vital Signs Temp Pulse Resp BP Pulse Ox 98.5 F 88 18 138/74 97 04/05/17 14:41 04/05/17 14:41 04/05/17 14:41 04/05/17 14:41 04/05/17 14:41 - Physical Exam General Appearance: Yes: Appropriately Dressed. No: Apparent Distress HEENT: positive: Normal Voice Neck: positive: Supple Respiratory/Chest: positive: Lungs Clear, Normal Breath Sounds. negative: Respiratory Distress Cardiovascular: positive: Regular Rate, S1, S2 Gastrointestinal/Abdominal: positive: Soft. negative: Tender Musculoskeletal: positive: Normal Inspection. negative: CVA Tenderness, Vertebral Tenderness Extremity: positive: Normal Inspection, Other (PICC in place to right arm, no ttp, swelling or erythema) Integumentary: positive: Dry, Warm Neurologic: positive: Fully Oriented, Alert, Normal Mood/Affect, Motor Strength 5/5, Other (neg SLR) ED Treatment Course - LABORATORY CBC & Chemistry Diagram: 04/05/17 15:00 04/05/17 15:00 - RADIOLOGY Radiology Studies Ordered: Category Date Time Status LUMBAR SPINE MRI WITH CONTR [MRI] Stat MRI 04/05/17 14:51 Ordered Medical Decision Making - Medical Decision Making 04/05/17 14:56 77-year-old male history of osteomyelitis/epidural abscess to lumbar spine 03/05 , thought to be secondary to homogenous spread, anemia, status post admission 2 weeks ago for fevers and diagnosed with infection to PICC line, has since had PICC line replaced (03/29) and now on ancef at [facility], sent to ED for recurrent back pain. Patient states he developed lower back pain 4 days ago that is now radiating to right leg. No numbness, tingling, lower extremity weakness, bowel or bladder incontinence or saddle anesthesia. Denies fever or chills. States he has leukocytosis at [facility] See exam R/o recurrent epidural abscess Currently on ancef via PICC Stable w/ intact neuro exam -declines pain meds -labs -MRI -anticipate admission 04/05/17 15:01 04/05/17 17:[address] Nieves, who is covering for patient's PMD, Dr. Galeano , agrees that if MRI negative, patient can return to rehab. If not able to get MRI today, admitted to obs under Dr. Galeano 04/05/17 19:17 04/05/17 19:19 As per radiology, epidural abscess has almost completely resolved, but they are now 2 large new abscesses in the L psoas muscle. Recommending CT abdomen and pelvis to better evaluate. Also states there is some signs siggestive of possible acute michell that can further be seen on CT. Of note, pt has no abd pain and LFTS WNL> Case discussed with ED attending, who recommends vanc and zosyn at this time. Will admit to Dr. Galeano and get surgery c/s *DC/Admit/Observation/Transfer Diagnosis at time of Disposition: Iliopsoas abscess - Discharge Dispostion Condition at time of disposition: Fair Admit: Yes - Referrals Referrals: Josh Galeano MD [Primary Care Provider] -
[2017-04-05 15:40] LABS: BASOPHIL 0.4 % (0-2.0); EOSINOPHIL 1.1 % (0-4.5); MCH 30.6 pg (25.7-33.7); MCHC 33.8 g/dl (32.0-35.9); MEAN CELL VOLUME 90.5 fl (80-96); MEAN PLT VOLUME 7.4 fl (7.5-11.1); NEUTROPHILS 79.7 % (42.8-82.8); PLATELET COUNT 417 K/MM3 (134-434); RDW 15.7 % (11.9-15.9); WHITE BLOOD COUNT 10.7 K/mm3 (4.0-10.0)
--- NOTE | 2017-04-05 15:49 | PDOC ---
*Physical Exam - Vital Signs Last Vital Signs Temp Pulse Resp BP Pulse Ox 98.5 F 88 18 138/74 97 04/05/17 14:41 04/05/17 14:41 04/05/17 14:41 04/05/17 14:41 04/05/17 14:41 ED Treatment Course - LABORATORY CBC & Chemistry Diagram: 04/05/17 15:00 04/05/17 15:00 Medical Decision Making - Medical Decision Making 04/05/17 15:47 Patient seen and evaluated with the nurse practitioner. I agree with the overall evaluation, assessment, and management with the following summary of visit: 77-year-old male with history of known epidural abscess/discitis on antibiotics via PICC line complicated by infected PICC line status post replacement, presents now from rehabilitation facility with recurrence of low back pain now radiating down his right leg. No weakness or bowel/bladder issues, no fevers or chills. Vitals as noted. Exam as noted. 77-year-old male with low back pain radiating down the right leg, given the history of discitis/lumbar epidural abscess would be concerned about recurrence or extension. Neurologically intact here, not septic. Labs including cultures MRI of the lumbar spine with IV contrast Will involve patient's primary team *DC/Admit/Observation/Transfer Diagnosis at time of Disposition: Epidural abscess
[2017-04-05 16:05] LABS: ANION GAP 10 (8-16); BILIRUBIN,TOTAL 0.5 mg/dL (0.2-1.0); CALCIUM 8.6 mg/dL (8.5-10.1); CO2 29 mmol/L (21-32); CREATININE 0.6 mg/dL (0.7-1.3); GLUCOSE,RANDOM 87 mg/dL (74-106); SGOT/AST 14 U/L (15-37); SGPT/ALT < 6 U/L (12-78); TOT PROT 7.3 g/dl (6.4-8.2)
[2017-04-05 16:06] LABS: ALK PHOS 80 U/L (45-117)
[2017-04-05 16:36] LABS: URINE APPEARANCE CLEAR; URINE BILIRUBIN NEGATIVE (NEGATIVE); URINE BLOOD NEGATIVE (NEGATIVE); URINE COLOR YELLOW; URINE GLUCOSE (UA) NEGATIVE (NEGATIVE); URINE KETONE TRACE (NEGATIVE); URINE NITRITE NEGATIVE (NEGATIVE)
[2017-04-05 16:43] LABS: URINE LEUK ESTERASE 1+ (NEGATIVE); URINE PROTEIN 1+ (NEGATIVE)
[2017-04-05 17:44] LABS: URINE MUCUS RARE; URINE RBC 6 /hpf (0-3); URINE WBC 13 /hpf (3-5)
[2017-04-05] MEDS ORDERED: VANCOMYCIN 1,000 MG in DEXTROSE 5%-WATER - 250 ML IVPB ONE (19:19)
[2017-04-05] MEDS ORDERED: PIPERACILLIN/TAZOB 3.375 GM 3.375 GM in DEXTROSE 5%-WATER - 50 ML IVPB ONE (19:19)
[2017-04-05] MEDS ORDERED: PIPERACILLIN/TAZOB 3.375 GM 50 ML IVPB ONE (19:25)
[2017-04-05] MEDS ORDERED: VANCOMYCIN 1 GRAM (PRE-DOCKED) 250 ML IVPB ONE (19:25)
[2017-04-05] MEDS ORDERED: diphenhydrAMINE HCL 25 MG CAPSULE (FP) PO PRN (22:19)
[2017-04-05] MEDS: DEXTROSE 5%-0.45% SALINE 1,000 ML IV SCH (23:03)
[2017-04-05] MEDS: MELATONIN 1 MG TABLET PO SCH (23:04)
[2017-04-06] MEDS: ALBUTEROL SO4 2.5/IPRATROPIUM 0.5 INH SOL 3 ML VIAL.NEB. NEB SCH ×5 (00:11→23:30)
[2017-04-06 00:16] VITALS: BMI 26.1
[2017-04-06] MEDS ORDERED: DEXTROSE 5%-WATER - 50 ML IVPB ONE ×2 (00:30→09:40)
[2017-04-06] MEDS ORDERED: PIPERACILLIN/TAZOBACTAM 3.375 GM VIAL IVPB ONE ×2 (00:30→09:40)
[2017-04-06] MEDS: PIPERACILLIN/TAZOB 3.375 GM 3.375 GM in DEXTROSE 5%-WATER - 50 ML IVPB SCH ×2 (02:38→09:50)
[2017-04-06] MEDS: GABAPENTIN 100 MG CAPSULE (FP) PO SCH ×3 (05:35→22:29)
[2017-04-06 08:15] LABS: ALBUMIN 1.8 g/dl (3.4-5.0); GLUCOSE,RANDOM 100 mg/dL (74-106); SGOT/AST 14 U/L (15-37)
[2017-04-06 08:18] LABS: ALK PHOS 73 U/L (45-117); ANION GAP 9 (8-16); BILIRUBIN,TOTAL 0.5 mg/dL (0.2-1.0); CALCIUM 8.4 mg/dL (8.5-10.1); CO2 28 mmol/L (21-32); CREATININE 0.6 mg/dL (0.7-1.3); SGPT/ALT < 6 U/L (12-78); TOT PROT 6.8 g/dl (6.4-8.2)
[2017-04-06 08:24] LABS: BASOPHIL 0.4 % (0-2.0); EOSINOPHIL 2.3 % (0-4.5); MCHC 32.8 g/dl (32.0-35.9); MEAN CELL VOLUME 91.4 fl (80-96); MEAN PLT VOLUME 7.6 fl (7.5-11.1); NEUTROPHILS 88.9 % (42.8-82.8); PLATELET COUNT 405 K/MM3 (134-434); RDW 15.7 % (11.9-15.9); WHITE BLOOD COUNT 12.4 K/mm3 (4.0-10.0)
[2017-04-06 08:27] LABS: INR 1.7 (0.82-1.09); PROTHROMBIN TIME (PATIENT) 18.9 SEC (9.98-11.88)
--- NOTE | 2017-04-06 09:10 | HP ---
Admitting History and Physical - Primary Care Physician PCP: Josh Galeano - Admission Chief Complaint: Pain low back area radiatring down laterally on the right leg. History of Present Illness: Patient with a history of recent admission for MSSA sepsis and Acute Osteomyelitis, Discitis and Epidural collection was completing 8 week course of 2Gm ANCEF ON March AT [facility] when he started to develop sever right sciatica type pain. He also required 1 unit packed cells recently and was developing low grade fevers at [facility]. ON transfer here he was noted on MRI and CAT scan to have 2 new collections in psoas and iliacus muscle but on the left side. Also noted was ? Acute Cholecystitis but no clinical symptoms. History Source: Patient Limitations to Obtaining History: No Limitations (cholelithiasis) - Past Medical History Cardiovascular: Yes: HTN Pulmonary: Yes: COPD Gastrointestinal: Yes: Other (history of choledocholithiasis s/p ERCP with Dr. 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 [employer] History of Recent Travel: Yes (as above) Home Medications - Allergies Allergies/Adverse Reactions: Allergies Allergy/AdvReac Type Severity Reaction Status Date / Time aloe Allergy Severe Rash Verified 03/21/17 14:21 aloe vera Allergy Severe Rash Verified 03/21/17 14:21 - Home Medications Home Medications: Ambulatory Orders Montelukast Na [Singulair -] 10 mg PO DAILY 02/10/17 Acetaminophen [Tylenol .Regular Strength -] 650 mg PO Q4H PRN #0 tablet Apixaban [Eliquis -] 5 mg PO BID tablet 03/01/17 Folic Acid - 1 mg PO DAILY tablet 03/01/17 Gabapentin [Neurontin -] 200 mg PO TID cap 03/01/17 Metoprolol Tartrate [Lopressor -] 50 mg PO BID tablet 03/01/17 Nystatin Cream [Mycostatin Cream -] 1 applic TP BID applic 03/01/17 Ipratropium/Albuterol Sulfate [Iprat-Albut 0.5-3(2.5) mg/3 ml] 3 ml IH Q4H 03/21 Melatonin 3 mg PO HS 03/21/17 Omeprazole 20 mg PO DAILY 03/22/17 Ascorbic Acid [Vitamin C -] 500 mg PO DAILY tablet 03/29/17 Diltiazem Cd [Cardizem Cd -] 240 mg PO DAILY #30 cap 03/29/17 Diphenhydramine HCl [Benadryl Capsule -] 25 mg PO HS PRN #0 cap 03/29/17 Ferrous Sulfate [Feosol] 325 mg PO DAILY tab 03/29/17 Lactobacillus Acidophilus [Bacid -] 1 tab PO DAILY tab 03/29/17 Salmeterol/Fluticasone [Advair 100Mcg/50Mcg -] 1 puff IH BID inhaler 03/29/17 Family Disease History - Family Disease History Family Disease History: Other: Father ( 44: CVA), Mother ( 93: old age) , Sister (2 sisters, healthy) Review of Systems - Review of Systems Constitutional: reports: Malaise Respiratory: denies: Cough, SOB Gastrointestinal: denies: Abdominal Pain, Nausea Genitourinary: denies: Incontinence Musculoskeletal: reports: Back Pain Neurological: reports: Other (right sciatica) Pain Intensity: 4 Physical Examination Vital Signs: Vital Signs Temperature 99.5 F 04/06/17 08:58 Pulse Rate 105 H 04/06/17 08:58 Respiratory Rate 20 04/06/17 08:58 Blood Pressure 112/71 04/06/17 08:58 O2 Sat by Pulse Oximetry (%) 98 04/05/17 21:00 Constitutional: Yes: Calm, Pallor Cardiovascular: Yes: Regular Rate and Rhythm (occ pvc) Respiratory: Yes: Regular Gastrointestinal: Yes: Normal Bowel Sounds, Soft. No: Palpable Mass, Tenderness Edema: No Neurological: Yes: Alert, Oriented ...Motor Strength: RLE (pain when on feet) Labs: CBC, BMP 04/06/17 06:30 04/06/17 06:30 Imaging - Results Cat Scan: Report Reviewed MRI: Report Reviewed Problem List - Problems (1) Iliopsoas abscess Assessment/Plan: New left collectio and Iliacus muscle collection Code(s): K68.12 - PSOAS MUSCLE ABSCESS (2) Epidural abscess Assessment/Plan: appears decreased Code(s): G06.2 - EXTRADURAL AND SUBDURAL ABSCESS, UNSPECIFIED (3) Anemia Assessment/Plan: HB 9 GM; had 1 unit packed cells on Tuesday Code(s): D64.9 - ANEMIA, UNSPECIFIED Qualifiers: Anemia type: iron deficiency Qualified Code(s): - (4) Atrial fibrillation Assessment/Plan: Paroxysmal A. Fib Code(s): I48.91 - UNSPECIFIED ATRIAL FIBRILLATION Qualifiers: Atrial fibrillation type: paroxysmal Qualified Code(s): I48.0 - Paroxysmal atrial fibrillation (5) Back pain Assessment/Plan: Right sciatica. Code(s): M54.9 - DORSALGIA, UNSPECIFIED Qualifiers: Back pain location: low back pain Chronicity: acute Back pain laterality: bilateral Sciatica presence: without sciatica Qualified Code(s): M54.5 - Low back pain
[2017-04-06] MEDS ORDERED: PT OWN MED DRAWER 7, Y5N ONE ×2 (09:40→21:48)
[2017-04-06] MEDS: LACTOBACILLUS ACIDOPHILUS 1 EACH TAB (FP) PO SCH (09:49)
[2017-04-06] MEDS: FOLIC ACID 1 MG TABLET (FP) PO SCH (09:49)
[2017-04-06] MEDS: PANTOPRAZOLE 20 MG TABLET (FP) PO SCH (09:49)
[2017-04-06] MEDS: ASCORBIC ACID 500 MG TABLET (FP) PO SCH (09:49)
[2017-04-06] MEDS: METOPROLOL TARTRATE 50 MG TABLET (FP) PO SCH ×2 (09:49→22:28)
[2017-04-06] MEDS: NYSTATIN 100,000 UNIT/GM TOPICAL CREAM 15 GM TUBE TP SCH ×2 (09:49→22:29)
[2017-04-06] MEDS: FERROUS SO4 325 MG TABLET (FP) PO SCH (09:49)
[2017-04-06] MEDS ORDERED: MONTELUKAST NA 10 MG TABLET PO SCH (10:00)
--- NOTE | 2017-04-06 10:02 | PN ---
Progress Note (short form) - Note Progress Note: NEUROSURGERY Admitted with MSSA bacteremia 2 weeks earlier with line infection and recurrent fever On Cefazolin previously Now on Vanco and Zosyn per ID Has been at [facility] LBP significantly better till 3 days ago; no sciatica PMH: COPD, Afib, HTN, OA, LBP ROS- negative otherwise for constitutional, CV, pulmonary (mild baseline cough) , GI, , endrocrine, oncological, neurological, psych PE: Tmax 100.5, now 99.5 HEENT- NC/AT; Neck- supple; Cor- RR; Lungs- no wheezes; Abd- obese, benign; Ext - No sign of DVT CN- intact; Motor- 5/5 except L IP 4, L Quad/EHL/TA/gastroc/inv/ev 4-; Sensation - diminished PP/LT L L4-5; DTR- hyporeflexic B Back- mild tenderness WBC 12.4; ESR/CRP pending MRI (02-19)- L4-5 spondylolisthesis with facet hypertrophy and moderate canal stenosis and moderate-marked foramenal stenosis; L4-5 disc T2 hyperinstensity/ fluid; mild L4-5 facet joint effusion/hypertrophy; mild psoas edema L > R; osteomyelitis L4-5; anterior [id number] enhancement c/w phlegmon MRI (04-05)- no definite drainage abscess; osteomyelitis evolving as expected; anterior epidural enhancement L4-5 improved; L psoas rim enhancing fluid collection New blood culture pending Chronic L4-5 spondylolisthesis with stenosis and mechanical LBP and L L4-5 radiculopathy MSSA bacteremia with L4-5 discitis/osteomyelitis s/p 7-8 weeks of iv abx; with MRI evidence of delayed psoas abscess Clinically improved till 3 days ago with recurrent back pain Pt and daughter had declined open surgical lumbar debridement given pt age (and spinal surgery would be of little benefit given psoas abscess anyway) and COPD IR for drainage and culture DVT prophylaxis PT-OOB for stamina and strength training ID f/u Spent 45 minutes at bedside/coordinating care
--- NOTE | 2017-04-06 10:30 | PN ---
Progress Note (short form) - Note Progress Note: ID Consult dictated 77 year old male on IV antibiotic therapy for MSSA discitis/ vertebral osteomyelitis, L psoas abscess now re-admitted from [facility] with R buttock and leg pain. Imaging reveals organized L psoas and iliacus muscle collections, incidental finding of distended gall bladder with evidence of acute cholecystitis, possible abscess in GB fossa. Acute cholecystitis, possible abscess MSSA discitis/ vertebral osteomyelitis/ L psoas abscess on therapy ( day # 46 of 8wk course ) Repeat BC obtained GI/ Surgical consults Ceftriaxone/ Flagyl for coverage of biliary tract pathogens and MSSA Imaging reviewed with radiologist. Case discussed with Dr Galeano
--- NOTE | 2017-04-06 12:07 | PN ---
Progress Note (short form) - Note Progress Note: surgery pt seen and examined. full consult dictated. 77m with staph psoas abscess from skin infection, history of choledocholithiasis, admitted for psoas abscess and spondylodiscitis, found to have acute cholecystitis and cholelithiasis on CT. On exam abd is soft, nt Plan- grossly irregular gb likely silent acute cholecystitis. wbc mildly elevated. safest plan would be to proceed with percutaneous drainage. surgical intervention in the acute setting carries significant risk of injury. Would recommend eventual cholecystectomy once patient optimized and other medical problems addressed.
[2017-04-06] MEDS ORDERED: DEXTROSE 5%-WATER 100 ML IVPB ONE (13:12)
[2017-04-06] MEDS: FLUTICASONE/SALMETEROL 100 MCG/50 MCG DISKUS IH SCH ×2 (13:18→22:28)
[2017-04-06] MEDS: METRONIDAZOLE 500 MG PREMIXED 100 ML IVPB SCH ×2 (13:19→17:13)
[2017-04-06] MEDS: DEXTROSE 5%-0.45% SALINE 1,000 ML IV SCH ×2 (13:20→22:29)
--- NOTE | 2017-04-06 13:25 | CON.GI ---
Consult Consult Specialty:: GI: For Dr. Ramírez Referred by:: Dr. Josh Galeano - History of Present Illness Chief Complaint: "I had back pain and pain down the back of my right leg" History of Present Illness: 77-year-old male history of osteomyelitis/epidural abscess to lumbar spine 03/05 , thought to be secondary to homogenous spread. 2 weeks ago patient was again admitted for fevers and diagnosed with infection to PICC line, has since had PICC line replaced (03/29) and [facility]. Now sent to ED for recurrent back pain since 5 days, radiating to right leg. No numbness, tingling, lower extremity weakness, bowel or bladder incontinence or saddle anesthesia. Denies fever or chills. CT and MRI was done and patinet was found to have psoas abscess and spondylodiscitis, found to have acute cholecystitis and cholelithiasis on CT. Patient also have a h/o of chledocholitihiasis. - History Source History Provided By: Patient - Past Medical History Cardio/Vascular: Yes: HTN Pulmonary: Yes: COPD Gastrointestinal: Yes: Other (history of choledocholithiasis s/p ERCP with Dr. 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[employer] History of Recent Travel: Yes (as above) Home Medications - Allergies Allergies/Adverse Reactions: Allergies Allergy/AdvReac Type Severity Reaction Status Date / Time aloe Allergy Severe Rash Verified 03/21/17 14:21 aloe vera Allergy Severe Rash Verified 03/21/17 14:21 - Home Medications Home Medications: Ambulatory Orders Montelukast Na [Singulair -] 10 mg PO DAILY 02/10/17 Acetaminophen [Tylenol .Regular Strength -] 650 mg PO Q4H PRN #0 tablet Apixaban [Eliquis -] 5 mg PO BID tablet 03/01/17 Folic Acid - 1 mg PO DAILY tablet 03/01/17 Gabapentin [Neurontin -] 200 mg PO TID cap 03/01/17 Metoprolol Tartrate [Lopressor -] 50 mg PO BID tablet 03/01/17 Nystatin Cream [Mycostatin Cream -] 1 applic TP BID applic 03/01/17 Ipratropium/Albuterol Sulfate [Iprat-Albut 0.5-3(2.5) mg/3 ml] 3 ml IH Q4H 03/21 Melatonin 3 mg PO HS 03/21/17 Omeprazole 20 mg PO DAILY 03/22/17 Ascorbic Acid [Vitamin C -] 500 mg PO DAILY tablet 03/29/17 Diltiazem Cd [Cardizem Cd -] 240 mg PO DAILY #30 cap 03/29/17 Diphenhydramine HCl [Benadryl Capsule -] 25 mg PO HS PRN #0 cap 03/29/17 Ferrous Sulfate [Feosol] 325 mg PO DAILY tab 03/29/17 Lactobacillus Acidophilus [Bacid -] 1 tab PO DAILY tab 03/29/17 Salmeterol/Fluticasone [Advair 100Mcg/50Mcg -] 1 puff IH BID inhaler 03/29/17 Family Disease History - Family Disease History Family Disease History: Other: Father ( 44: CVA), Mother ( 93: old age) , Sister (2 sisters, healthy) Review of Systems - Review of Systems Gastrointestinal: reports: Other Musculoskeletal: reports: Back Pain (back pain radiating to right leg) Physical Exam-GI Vital Signs: Vital Signs Temperature 99.5 F 04/06/17 08:58 Pulse Rate 82 04/06/17 09:55 Respiratory Rate 20 04/06/17 12:18 Blood Pressure 112/71 04/06/17 08:58 O2 Sat by Pulse Oximetry (%) 94 L 04/06/17 12:18 Constitutional: Yes: Well Nourished, Calm Eyes: Yes: EOM Intact, PERRL HENT: Yes: Other (dry oral mucosa) Cardiovascular: Yes: WNL, Regular Rate and Rhythm, S1, S2 Respiratory: Yes: Other (b/l crackels at bases, b/l air entruy present, no wheez,) Gastrointestinal Inspection: Yes: WNL, Other (non teneder, no guarding, no rigidity, bs+, brennan sign negative, scar mirian in right inguinal area.) Genitourinary: Yes: WNL Extremities: Yes: Other (no pedal edema) Labs: CBC, BMP 04/06/17 06:30 04/06/17 06:30 INR, PTT INR 1.70 (0.82-1.09) H 04/06/17 06:30 Assessment/Plan assessment (1) Suspected acute calculous cholecystitis. Asymptomatic currently however patient with recent Abx use and is elderly. changes noted on recent imqaging qa change from previous (2) Iliopsoas abscess / Epidural abscess Plan IV fluid. Antibiotics as per ID ( on ceftriaxone and flgyl) Surgery team on case: planned for percutaneous drainage of GB once A/C worn off Follow cbc and bmp. Monitor vitals. ATTENDING PHYSICIAN STATEMENT I saw and evaluated the patient. I reviewed the resident's note and discussed the case with the resident. I agree with the resident's findings and plan as documented. SUBJECTIVE: 77M with worsening back pain radiating to posteroir right leg. history complicated by previous L-Spine Osteomyelitis leulocytosis and low grade fevers on admission Iliopsoas abscess noted and well as epidural abscess Distended, thick walled GB with stones noted on CT scan No abdominal pain OBJECTIVE: On exam: 99.4/80/18/134/70 O2: 97% on RA Awake, alert Anicteric Hrt: RRR Lungs: fine crackles at bases b/l Abdomen: + RLQ scar, NT/ND, + BS, negative brennan's Ext: no LE Edema Labs: Normal Liver chemistries ASSESSMENT 1. Possible acute calculous cholecystits 2. Iliopsoas/epidural abscesses PLAN: 1. Patient seen by surgery. For cholecystostomy tube once eliquis effect has worn off 2. Abx per ID 3. Iliopsoas/epidural abscess being evaluated by SARY/ID 4. When acute issues resolved, patient already advised to follow-up with Dr. Ramírez to discuss colonosocpy Bradley Vyas D.O.
[2017-04-06] MEDS: CEFTRIAXONE 2 GM in DEXTROSE 5%-WATER 100 ML IVPB SCH (13:52)
--- NOTE | 2017-04-06 14:51 | EKG ---
Test Reason : Blood Pressure : / mmHG Vent. Rate : 089 BPM Atrial Rate : 089 BPM P-R Int : 168 ms QRS Dur : 096 ms QT Int : 382 ms P-R-T Axes : 021 -28 -15 degrees QTc Int : 464 ms NORMAL SINUS RHYTHM VOLTAGE CRITERIA FOR LEFT VENTRICULAR HYPERTROPHY ABNORMAL ECG WHEN COMPARED WITH ECG OF 21-MAR-2017 16:17, NO SIGNIFICANT CHANGE WAS FOUND Confirmed by HEIDI WEST MD ([id number]) on 04/06/2017 2:51:07 PM Referred By: Confirmed By:HEIDI WEST MD
[2017-04-06] MEDS: KCL 10 MEQ IVPB 100 ML IVPB SCH ×3 (14:54→17:13)
[2017-04-06] MEDS ORDERED: PIPERACILLIN/TAZOB 3.375 GM 3.375 GM in DEXTROSE 5%-WATER - 50 ML IVPB SCH (18:00)
--- NOTE | 2017-04-06 20:31 | CONS ---
DATE OF CONSULTATION: DATE OF DICTATION: 04/06/2017 INFECTIOUS DISEASE CONSULTATION HISTORY OF PRESENT ILLNESS: The patient is a 77-year-old male evaluated for low-grade fever, leukocytosis. The patient has had a complicated recent past medical history. He was diagnosed with methicillin sensitive Staphylococcus bacteremia in January of 2017. He was hospitalized at that time. His course was complicated by the development of diskitis, vertebral osteomyelitis, and phlegmatous changes of the left psoas muscle. He had a persistent bacteremia despite appropriate antibiotic therapy. He ultimately cleared the bacteremia after ertapenem was added to cephazolin. The patient had imaging studies in late January and early February which showed some phlegmonous changes but no discrete drainable collection in the left psoas muscle. He was discharged to [facility] with a PICC line to complete an 8-week course of IV antibiotic therapy. In the interim, he required re-admission for occlusion of his PICC line and fever. The PICC line was removed, cultures at that time showed a bacillus species which was felt to be a contaminant. He defervesced after the PICC line was removed. He resumed the IV cephazolin and was discharged back to [facility] [place]. He is presently day 46 of an 8-week course of IV antibiotic therapy. He reports doing well until April 02. He began to develop pain in his right buttock with radiation down his right lower extremity. He had attributed this to a wheelchair that was being used. He was given a bigger wheelchair with no significant improvement in symptoms. He continued to complain of right buttock and lower extremity pain to the point where he was transferred back to [facility]. In the emergency room, he was noted to have a slight leukocytosis, and he had developed a low-grade fever. An MRI and CAT scan were repeated. The MRI shows a now discrete 4-cm left psoas muscle collection at the level of L4-L5, and a 2nd collection 5.7 cm in the left iliacus muscle. His vertebral osteomyelitis and epidural component appears to be improved. He was however incidentally found to have a distended gallbladder with wall thickening and pericholecystic fluid and what appeared to be loculated fluid around the gallbladder consistent with acute cholecystitis and possible gallbladder abscess. He has no complaints of abdominal pain. He denies any right upper quadrant abdominal pain. No nausea, vomiting, or diarrhea. His liver enzymes have been normal. He has not had jaundice. A CAT scan done in January did show gallbladder stones. Cultures were repeated, and he was empirically treated with Zosyn and vancomycin. PAST MEDICAL HISTORY: As above. Also includes hypertension, COPD, abdominal aortic aneurysm, spinal stenosis, atrial fibrillation. PAST SURGICAL HISTORY: Status post bilateral inguinal hernia repair. ALLERGIES: No known drug allergies. MEDICATION: Include Advair, Tylenol, Neurontin, Bacid, Lopressor, Cardizem, Singulair, melatonin, Protonix, folic acid, vitamin C. SOCIAL HISTORY: Lives at home with his . Nonsmoker. Nondrinker. SYSTEMS REVIEW: Neurologic: No loss of consciousness, seizure activity, or focal weakness. Cardiac: Positive for atrial fibrillation. Respiratory: Negative cough or sputum production. Gastrointestinal: As per HPI. Genitourinary: Negative for urinary tract infection. LABORATORY DATA: White count on admission 10.7, presently 12.4. Hematocrit 26.4, platelet count 405, BUN 10, creatinine 0.6. Liver enzymes: total bilirubin 0.5, alkaline phosphatase 73, AST 14. Urinalysis: 13 white cells. Blood cultures pending. Imaging studies as mentioned. PHYSICAL EXAMINATION: General: He is awake and alert. He is supine in bed. He is in no acute distress. He is not acutely toxic appearing. Vital signs: Temperature 98.2, T-max 100.5, blood pressure 134/71, pulse 107 regular, respirations 18 per minute. HEENT: Sclerae anicteric. Cardiovascular: Heart sounds irregular S1, S2. Respiratory: Lungs clear. Abdomen: Soft. No right upper quadrant tenderness to palpation. No mass, rebound, or rigidity. Negative Orr sign. Extremities: 1+ edema. IMPRESSION: A 77-year-old male on intravenous antibiotic therapy for methicillin sensitive Staphylococcus diskitis versus vertebral osteomyelitis and now readmitted from rehabilitation with right buttock and leg pain. Imaging reveals now organized collections in the left psoas and iliacus muscles with incidental finding of a distended gallbladder with evidence of acute cholecystitis, possible abscess formation. 1. Acute cholecystitis, possible abscess. 2. Rule out biliary sepsis. 3. Methicillin sensitive Staphylococcus aureus diskitis/vertebral osteomyelitis/left psoas abscess on therapy (day number 46 of 8-week course). Repeat blood cultures have been obtained. Would request GI and surgical evaluation. Ceftriaxone 2 g IV piggyback daily plus Flagyl 500 mg IV piggyback every 8 hours for coverage of biliary tract pathogens and methicillin sensitive Staphylococcus aureus. All imaging studies were reviewed with radiology and case was discussed with his primary care physician. Will follow. Thank you for the kind referral. MARIA TERESA HALL M.D. [id number]
--- NOTE | 2017-04-06 20:50 | CONS ---
DATE OF CONSULTATION: 04/06/2017 REASON FOR CONSULTATION: Acute cholecystitis. REQUESTING PHYSICIAN: Bradley Vyas D.O. REASON FOR CONSULTATION: This is an inpatient consultation. BRIEF HISTORY: This is a 77-year-old male who has recently been in rehabilitation, being treated for osteomyelitis and epidural abscess felt to originate from a skin infection. He came into [facility] with severe pain in his leg and was diagnosed with psoas abscess. He also was noted incidentally on MRI as well as CAT scan to have what appeared to be a thickened distended inflamed gallbladder with pericholecystic fluid and gallstones. He has a history of an ERCP 10 years ago for choledocholithiasis. Request was made for surgical evaluation of his likely acute cholecystitis. He was noted to have an elevated white blood cell count of 12 and his chemistries were unremarkable with normal liver function tests. He has had a T- max of 100.5 this admission. He denies nausea, denies vomiting, denies abdominal pain. PAST MEDICAL HISTORY: As in HPI. In addition, he has hypertension, COPD, and anemia. PAST SURGICAL HISTORY: Includes a right inguinal hernia repair and a tonsillectomy. SOCIAL HISTORY: Positive for occasional alcohol consumption and negative for tobacco. ALLERGIES: No known drug allergies. HOME MEDICATIONS: Include Singulair, Eliquis, folate, Neurontin, Lopressor, albuterol, and Advair. In the hospital, he is being treated with Rocephin as well as Flagyl. REVIEW OF SYSTEMS: General: Denies fatigue or malaise. Cardiac: Denies chest pain or palpitations. Respiratory: Denies shortness of breath, wheeze. Gastrointestinal: As in HPI. Denies diarrhea. Denies blood in stool. Denies recent weight loss. He is very hungry. Genitourinary: Denies dysuria. Musculoskeletal: Admits to back pain and leg pain. PHYSICAL EXAMINATION: General: This is a well-developed, well-nourished 77-year-old male in no distress. Vital signs: He is afebrile. HEENT: Head is normocephalic. Sclerae anicteric. Neck: Supple. Chest: Clear. Abdomen: Soft. It is not tender. There is a very faint surgical scar in the right groin. There is no guarding, no rebound. Extremities: Trace edema. LABORATORY: On review of his laboratory. His white blood cell count is elevated at 12.4. His chemistries are unremarkable with a low albumin of 1.8. IMAGING: As in HPI. ASSESSMENT: A 77-year-old male with complicated psoas and epidural abscess involving his spine who is now found to have likely acute cholecystitis after being in rehabilitation. He has gallstones noted on CAT scan and MRI and has a history of choledocholithiasis. At this point, it would not be safe to operate in the acute setting, and this would carry a significant risk of injury and complication to the patient. Therefore, the safest bet would be to proceed with percutaneous drainage of his gallbladder by interventional radiology. Once his other issues are addressed, the patient should ultimately have a cholecystectomy as an outpatient. Would recommend that he continue his drain until that time. I have also considered confirming the cholecystitis with HIDA scan. After reviewing films with Dr. Guardado, this is almost certainly a problem gallbladder, and a HIDA scan would delay his therapeutic treatment. I agree with Everette and Lauryn to cover E. coli and other biliary related solomon and I realize that the patient may develop sepsis after the drainage procedure, however I think overall this is the safest course. DO PB CASTANEDA/[id number] MTDD
[2017-04-06] MEDS ORDERED: VANCOMYCIN 1 GRAM (PRE-DOCKED) 250 ML IVPB SCH (21:00)
[2017-04-06] MEDS: MELATONIN 1 MG TABLET PO SCH (22:28)
[2017-04-06] MEDS: MONTELUKAST NA 10 MG TABLET PO SCH (22:29)
[2017-04-07] MEDS: METRONIDAZOLE 500 MG PREMIXED 100 ML IVPB SCH ×3 (01:50→17:48)
[2017-04-07] MEDS: GABAPENTIN 100 MG CAPSULE (FP) PO SCH ×3 (07:03→22:19)
[2017-04-07] MEDS: ALBUTEROL SO4 2.5/IPRATROPIUM 0.5 INH SOL 3 ML VIAL.NEB. NEB SCH ×3 (07:17→18:21)
[2017-04-07 08:17] LABS: BASOPHIL 0.5 % (0-2.0); EOSINOPHIL 5.6 % (0-4.5); MCH 29.8 pg (25.7-33.7); MCHC 32.8 g/dl (32.0-35.9); MEAN CELL VOLUME 90.9 fl (80-96); MEAN PLT VOLUME 7.4 fl (7.5-11.1); NEUTROPHILS 78.1 % (42.8-82.8); PLATELET COUNT 394 K/MM3 (134-434); RDW 15.5 % (11.9-15.9); WHITE BLOOD COUNT 9.7 K/mm3 (4.0-10.0)
[2017-04-07 08:22] LABS: ALBUMIN 1.8 g/dl (3.4-5.0); AMYLASE 30 U/L (25-115); ANION GAP 6 (8-16); BILIRUBIN,TOTAL 0.5 mg/dL (0.2-1.0); CALCIUM 8.5 mg/dL (8.5-10.1); CO2 29 mmol/L (21-32); CREATININE 0.5 mg/dL (0.7-1.3); GLUCOSE,RANDOM 97 mg/dL (74-106); SGOT/AST 23 U/L (15-37); SGPT/ALT 7 U/L (12-78); TOT PROT 6.7 g/dl (6.4-8.2)
--- NOTE | 2017-04-07 08:22 | PN ---
Progress Note (short form) - Note Progress Note: NEUROSURGERY GI and general surgery input noted Now on Ceftriaxone and Flagyl per ID Has been at [facility] LBP significantly better till 4 days ago; no sciatica PE: Tmax 99.5, VSS HEENT- NC/AT; Neck- supple; Cor- RR; Lungs- no wheezes; Abd- obese, benign; Ext - No sign of DVT CN- intact; Motor- 5/5 except L IP 4, L Quad/EHL/TA/gastroc/inv/ev 4-; Sensation - diminished PP/LT L L4-5; DTR- hyporeflexic B Back- mild tenderness MRI (04-05)- no definite drainable spinal abscess; osteomyelitis evolving as expected; anterior epidural enhancement L4-5 improved; L psoas rim enhancing fluid collections x2; largest is pre-sacral New blood culture pending Chronic L4-5 spondylolisthesis with stenosis and mechanical LBP and L L4-5 radiculopathy MSSA bacteremia with L4-5 discitis/osteomyelitis s/p 7-8 weeks of iv abx; with MRI evidence of delayed psoas abscess Clinically improved till 4 days ago with recurrent back pain and R posterior thigh pain D/w IR Dr Chacon yesterday for attempted drainage of larger presacral collection and culture Dilated gall bladder for percutaneous drainage D/w Laura Strauss Barry, pt and daughter DVT prophylaxis PT-OOB for stamina and strength training ID f/u
[2017-04-07 08:23] LABS: ALK PHOS 199 U/L (45-117)
[2017-04-07 08:32] LABS: C-REACTIVE PROTEIN 13.1 MG/DL (0.00-0.3)
--- NOTE | 2017-04-07 08:56 | PN ---
Progress Note (short form) - Note Progress Note: surgery IR drainage postponed for anticoagulation to wear off. pt still without complaints. no fever. abd- soft, mild ruq fullness. no tenderness Plan- IR drainage of gb when possible. eventual elective cholecystectomy. cont iv abx.
--- NOTE | 2017-04-07 09:03 | PN ---
Progress Note, Physician Chief Complaint: worried but no nausea or abdominal pain. History of Present Illness: Patient with admission for temps and right sided sciatica was found to have 2 new fluid collections in front of the spine but on the left side and evidence of a swollen GB with surrounding edema compatible with Acute Cholecystitis. He has now missed 4 doses of Eliquis. Plan: Draining GB with Cholecystostomy and ? draining of one of the anterior fluid collections. Patient seen by Neurosurgery, Surgery, GI and ID specialists. Recent Hx of Acute Osteomyelitis, Discitis and Epidural Abscess which are improved after 7 weeks of IV antibiotics. - Current Medication List Current Medications: Active Medications Acetaminophen (Tylenol -) 650 mg PO Q4H PRN PRN Reason: PAIN Albuterol/Ipratropium (Duoneb -) 1 amp NEB QIDR [facility] Last Admin: 04/07/17 07:17 Dose: 1 amp Ascorbic Acid (Vitamin C -) 500 mg PO DAILY [facility] Last Admin: 04/06/17 09:49 Dose: 500 mg Diltiazem HCl (Cardizem Cd -) 240 mg PO DAILY [facility] Last Admin: 04/06/17 09:49 Dose: 240 mg Diphenhydramine HCl (Benadryl -) 25 mg PO HS PRN PRN Reason: INSOMNIA Ferrous Sulfate (Feosol -) 325 mg PO DAILY [facility] Last Admin: 04/06/17 09:49 Dose: 325 mg Folic Acid (Folic Acid -) 1 mg PO DAILY [facility] Last Admin: 04/06/17 09:49 Dose: 1 mg Gabapentin (Neurontin -) 200 mg PO TID [facility] Last Admin: 04/07/17 07:03 Dose: 200 mg Dextrose/Sodium Chloride (D5-1/2ns -) 1,000 mls @ 75 mls/hr IV ASDIR [facility] Last Admin: 04/06/17 22:29 Dose: Not Given Ceftriaxone Sodium 2 gm/ (Dextrose) 100 mls @ 200 mls/hr IVPB DAILY [facility] Last Admin: 04/06/17 13:52 Dose: 200 mls/hr Metronidazole (Flagyl 500mg Premixed Ivpb -) 100 mls @ 100 mls/hr IVPB Q8H-IV [facility] Last Admin: 04/07/17 01:50 Dose: 100 mls/hr Lactobacillus Acidophilus (Bacid -) 1 tab PO DAILY [facility] Last Admin: 04/06/17 09:49 Dose: 1 tab Melatonin (Melatonin) 3 mg PO HS [facility] Last Admin: 04/06/17 22:28 Dose: 3 mg Metoprolol Tartrate (Lopressor -) 50 mg PO BID [facility] Last Admin: 04/06/17 22:28 Dose: 50 mg Montelukast Sodium (Singulair -) 10 mg PO HS [facility] Last Admin: 04/06/17 22:29 Dose: 10 mg Nystatin (Mycostatin Cream -) 1 applic TP BID [facility] Last Admin: 04/06/17 22:29 Dose: 1 applic Pantoprazole Sodium (Protonix -) 20 mg PO DAILY [facility] Last Admin: 04/06/17 09:49 Dose: 20 mg Fluticasone/Salmeterol (Advair 100mcg/50mcg -) 1 puff IH BID [facility] Last Admin: 04/06/17 22:28 Dose: 1 puff - Objective Vital Signs: Vital Signs Temperature 97.9 F 04/07/17 06:00 Pulse Rate 91 H 04/07/17 06:00 Respiratory Rate 20 04/07/17 06:00 Blood Pressure 140/83 04/07/17 06:00 O2 Sat by Pulse Oximetry (%) 95 04/06/17 21:00 Constitutional: Yes: Anxious, Pallor Cardiovascular: Yes: Regular Rate and Rhythm Respiratory: Yes: Regular Gastrointestinal: Yes: Soft, Hyperactive Bowel Sounds. No: Tenderness Genitourinary: No: Fragoso Present Edema: No Neurological: Yes: Alert, Oriented Labs: CBC, BMP 04/07/17 06:30 04/07/17 06:30 INR, PTT INR 1.70 (0.82-1.09) H 04/06/17 06:30 Problem List - Problems (1) Iliopsoas abscess Assessment/Plan: Await drainage of GB. WBC better today and on IV antibiotics. Code(s): K68.12 - PSOAS MUSCLE ABSCESS (2) Epidural abscess Assessment/Plan: Improved from 7 weeks IV antibiotics Code(s): G06.2 - EXTRADURAL AND SUBDURAL ABSCESS, UNSPECIFIED (3) Anemia Assessment/Plan: Hemoglobin down to 8.7GM; will follow. Code(s): D64.9 - ANEMIA, UNSPECIFIED (4) Atrial fibrillation Code(s): I48.91 - UNSPECIFIED ATRIAL FIBRILLATION Qualifiers: Qualified Code(s): I48.0 - Paroxysmal atrial fibrillation (5) Back pain Assessment/Plan: Will get OOB and see if right sciatica recurs Code(s): M54.9 - DORSALGIA, UNSPECIFIED Qualifiers: Qualified Code(s): M54.5 - Low back pain
[2017-04-07] MEDS ORDERED: DEXTROSE 5%-WATER 100 ML IVPB ONE (09:49)
[2017-04-07] MEDS: LACTOBACILLUS ACIDOPHILUS 1 EACH TAB (FP) PO SCH (09:57)
[2017-04-07] MEDS: FLUTICASONE/SALMETEROL 100 MCG/50 MCG DISKUS IH SCH ×2 (09:58→22:19)
[2017-04-07] MEDS: CEFTRIAXONE 2 GM in DEXTROSE 5%-WATER 100 ML IVPB SCH (09:58)
[2017-04-07] MEDS: PANTOPRAZOLE 20 MG TABLET (FP) PO SCH (09:58)
[2017-04-07] MEDS: FOLIC ACID 1 MG TABLET (FP) PO SCH (09:58)
[2017-04-07] MEDS: METOPROLOL TARTRATE 50 MG TABLET (FP) PO SCH ×2 (09:58→22:19)
[2017-04-07] MEDS: ASCORBIC ACID 500 MG TABLET (FP) PO SCH (09:58)
[2017-04-07] MEDS: FERROUS SO4 325 MG TABLET (FP) PO SCH (09:58)
[2017-04-07 10:02] LABS: INR 1.59 (0.82-1.09); PROTHROMBIN TIME (PATIENT) 17.7 SEC (9.98-11.88)
--- NOTE | 2017-04-07 10:13 | PN ---
Progress Note, Physician History of Present Illness: Comfortable at rest in bed No c/o R buttock or LE pain No RUQ abdominal pain No N/V No fever/ chills Afebrile WBC WNL Repeat BC (-) - Current Medication List Current Medications: Active Medications Acetaminophen (Tylenol -) 650 mg PO Q4H PRN PRN Reason: PAIN Albuterol/Ipratropium (Duoneb -) 1 amp NEB QIDR [facility] Last Admin: 04/07/17 07:17 Dose: 1 amp Ascorbic Acid (Vitamin C -) 500 mg PO DAILY [facility] Last Admin: 04/07/17 09:58 Dose: 500 mg Diltiazem HCl (Cardizem Cd -) 240 mg PO DAILY [facility] Last Admin: 04/07/17 09:58 Dose: 240 mg Diphenhydramine HCl (Benadryl -) 25 mg PO HS PRN PRN Reason: INSOMNIA Ferrous Sulfate (Feosol -) 325 mg PO DAILY [facility] Last Admin: 04/07/17 09:58 Dose: 325 mg Folic Acid (Folic Acid -) 1 mg PO DAILY [facility] Last Admin: 04/07/17 09:58 Dose: 1 mg Gabapentin (Neurontin -) 200 mg PO TID [facility] Last Admin: 04/07/17 07:03 Dose: 200 mg Dextrose/Sodium Chloride (D5-1/2ns -) 1,000 mls @ 75 mls/hr IV ASDIR [facility] Last Admin: 04/06/17 22:29 Dose: Not Given Ceftriaxone Sodium 2 gm/ (Dextrose) 100 mls @ 200 mls/hr IVPB DAILY [facility] Last Admin: 04/07/17 09:58 Dose: 200 mls/hr Metronidazole (Flagyl 500mg Premixed Ivpb -) 100 mls @ 100 mls/hr IVPB Q8H-IV [facility] Last Admin: 04/07/17 01:50 Dose: 100 mls/hr Lactobacillus Acidophilus (Bacid -) 1 tab PO DAILY [facility] Last Admin: 04/07/17 09:57 Dose: 1 tab Melatonin (Melatonin) 3 mg PO HS [facility] Last Admin: 04/06/17 22:28 Dose: 3 mg Metoprolol Tartrate (Lopressor -) 50 mg PO BID [facility] Last Admin: 04/07/17 09:58 Dose: 50 mg Montelukast Sodium (Singulair -) 10 mg PO HS [facility] Last Admin: 07/19/17 22:29 Dose: 10 mg Nystatin (Mycostatin Cream -) 1 applic TP BID [facility] Last Admin: 04/06/17 22:29 Dose: 1 applic Pantoprazole Sodium (Protonix -) 20 mg PO DAILY [facility] Last Admin: 04/07/17 09:58 Dose: 20 mg Fluticasone/Salmeterol (Advair 100mcg/50mcg -) 1 puff IH BID [facility] Last Admin: 04/07/17 09:58 Dose: 1 puff - Objective Vital Signs: Vital Signs Temperature 99.4 F 04/07/17 09:51 Pulse Rate 92 H 04/07/17 09:51 Respiratory Rate 20 04/07/17 09:51 Blood Pressure 142/72 04/07/17 09:51 O2 Sat by Pulse Oximetry (%) 95 04/06/17 21:00 Constitutional: Yes: No Distress Eyes: Yes: Conjunctiva Clear Cardiovascular: Yes: Regular Rate and Rhythm, S1, S2 Respiratory: Yes: CTA Bilaterally Gastrointestinal: Yes: Normal Bowel Sounds, Soft, Abdomen, Obese. No: Tenderness Labs: CBC, BMP 04/07/17 06:30 04/07/17 06:30 INR, PTT INR 1.59 (0.82-1.09) H 04/07/17 09:15 Assessment/Plan Acute cholecystitis MSSA baceteremia/ vertebral osteo/ psoas abscess on tx Continue empiric coverage biliary pathogens + MSSA bacteremia with ceftriaxone/ flagyl Mgt cholecystitis / psoas collection per surgery/ IR/NS
[2017-04-07] MEDS ORDERED: HYDROmorphone HCL CARPU-JECT 1 MG/1 ML DISP.SYRIN IVPUSH ONE ×2 (11:20→11:40)
[2017-04-07] MEDS: NYSTATIN 100,000 UNIT/GM TOPICAL CREAM 15 GM TUBE TP SCH ×2 (13:21→22:20)
[2017-04-07] MEDS: ACETAMINOPHEN 325 MG TABLET (FP) PO PRN ×2 (14:49→18:32)
--- NOTE | 2017-04-07 15:18 | PN ---
GI Progress Note Subjective: No acute events S/P percutaneous cholecystostomy Mr. Santacruz states feeling exhausted - Objective Vital Signs: Vital Signs Temperature 98.2 F 04/07/17 14:35 Pulse Rate 96 H 04/07/17 14:35 Respiratory Rate 30 H 04/07/17 14:35 Blood Pressure 156/83 04/07/17 14:35 O2 Sat by Pulse Oximetry (%) 98 04/07/17 12:00 Constitutional: Calm Eyes: No: Sclera Icterus Cardiovascular: Yes: Regular Rate and Rhythm Respiratory: Yes: CTA Bilaterally Gastrointestinal Inspection: Yes: Other (Cholecystostomy in place with liquid and semiliquid bile). No: Distention ...Auscultate: Yes: Normoactive Bowel Sounds ...Palpate: No: Tenderness ...Percussion: No: Tympanitic Neurological: Yes: Alert, Oriented Labs: CBC, BMP 04/07/17 06:30 04/07/17 06:30 INR, PTT INR 1.59 (0.82-1.09) H 04/07/17 09:15 Hepatic Panel Total Bilirubin 0.5 mg/dL (0.2-1.0) 04/07/17 06:30 AST 23 U/L (15-37) D 04/07/17 06:30 ALT 7 U/L (12-78) L 04/07/17 06:30 Alkaline Phosphatase 199 U/L (45-117) H D 04/07/17 06:30 Albumin 1.8 g/dl (3.4-5.0) L 04/07/17 06:30 Problem List - Problems (1) Cholecystitis with cholelithiasis Assessment/Plan: s/p Cholecystostomy. Will need eventual cholecystectomy when acute issues are resolved ALP has risen. ? from Abx / from paraspinal process. would monitor for now and wouuld likely need cholangiogram via cholecystostomy tube to evaluate CBD Monitor LFT's Code(s): K80.10 - CALCULUS OF GALLBLADDER W CHRONIC CHOLECYST W/O OBSTRUCTION
[2017-04-07] MEDS ORDERED: LEVOFLOXACIN 500 MG IVPB 100 ML IVPB ONE (15:45)
[2017-04-07] MEDS ORDERED: PT OWN MED DRAWER 7, Y5N ONE (21:23)
[2017-04-07] MEDS: MONTELUKAST NA 10 MG TABLET PO SCH (22:19)
[2017-04-07] MEDS: MELATONIN 1 MG TABLET PO SCH (22:20)
[2017-04-08] MEDS: METRONIDAZOLE 500 MG PREMIXED 100 ML IVPB SCH ×3 (01:31→17:49)
[2017-04-08] MEDS: ALBUTEROL SO4 2.5/IPRATROPIUM 0.5 INH SOL 3 ML VIAL.NEB. NEB SCH ×4 (05:30→17:05)
[2017-04-08] MEDS: GABAPENTIN 100 MG CAPSULE (FP) PO SCH ×3 (06:17→21:46)
--- NOTE | 2017-04-08 06:49 | PN ---
Progress Note (short form) - Note Progress Note: NEUROSURGERY On Ceftriaxone and Flagyl One episode of R sciatica (posterior thigh) yesterday PE: Tmax 99.4, VSS HEENT- NC/AT; Neck- supple; Cor- RR; Lungs- no wheezes; Abd- obese, benign; Ext - No sign of DVT CN- intact; Motor- 5/5 except L IP 4, L Quad/EHL/TA/gastroc/inv/ev 4-; Sensation - diminished PP/LT L L4-5 MRI (04-05)- no definite drainable spinal abscess; osteomyelitis evolving as expected; anterior epidural enhancement L4-5 improved; L psoas rim enhancing fluid collections x2; largest is pre-sacral on the L INR 1.59 yesterday, today's pending Blood culture negative to date Chronic L4-5 spondylolisthesis with stenosis and mechanical LBP and L L4-5 radiculopathy MSSA bacteremia with L4-5 discitis/osteomyelitis s/p 7-8 weeks of iv abx; with MRI evidence of delayed psoas abscess Clinically improved till 4 days ago with recurrent back pain and R posterior thigh pain D/w IR Dr Chacon for attempted drainage of larger presacral collection and culture Dilated gall bladder for percutaneous drainage today reportedly DVT prophylaxis PT-OOB for stamina and strength training ID f/u
--- NOTE | 2017-04-08 08:05 | PN ---
Physical Exam: SUBJECTIVE: Patient seen and examined. Lying comfortably in bed. Passing flatus. Denies pain abdomen, nausea, vomiting, diarrhoea. Denies itching of skin, yellow discoloration of skin, didn't have bowel movement. States pain in back has improved. Patient and RN reports that he is scheduled for drainage of psoas abscess by IR. Patient has T max of 99.4 yesterday. OBJECTIVE: Vital Signs Period Temp Pulse Resp BP Sys/Cat Pulse Ox Last 24 Hr 97.7 F-99.4 F 82-101 18-30 114-156/72-85 95-100 GENERAL: The patient is awake, alert, and fully oriented, in no acute distress. HEAD: Normal with no signs of trauma. EYES: sclera anicteric, conjunctiva clear. ENT: moist mucous membranes. LUNGS: Breath sounds equal, b/l crackles present, no accessory muscle use. HEART:sis2 normal. ABDOMEN: Soft, nontender, nondistended, normoactive bowel sounds, no guarding, no rebound, cholecystostomy drain in situ, draining yellow bile EXTREMITIES: warm, no edema. SKIN: Warm, Laboratory Results - last 24 hr 04/07/17 04/07/17 04/07/17 06:30 06:30 06:30 WBC 9.7 RBC 2.91 L Hgb 8.7 L Hct 26.5 L MCV 90.9 MCH 29.8 MCHC 32.8 RDW 15.5 Plt Count 394 MPV 7.4 L Neutrophils % 78.1 Lymphocytes % 8.6 D Monocytes % 7.2 Eosinophils % 5.6 H D Basophils % 0.5 ESR INR Sodium 136 Potassium 3.6 Chloride 101 Carbon Dioxide 29 Anion Gap 6 L BUN 8 Creatinine 0.5 L Creat Clearance w eGFR > 60 Random Glucose 97 Calcium 8.5 Total Bilirubin 0.5 AST 23 D ALT 7 L Alkaline Phosphatase 199 H D C-Reactive Protein 13.1 H D Cancelled Total Protein 6.7 Albumin 1.8 L Total Amylase 30 Lipase 121 04/07/17 04/07/17 06:30 09:15 WBC RBC Hgb Hct MCV MCH MCHC RDW Plt Count MPV Neutrophils % Lymphocytes % Monocytes % Eosinophils % Basophils % ESR > 130 H INR 1.59 H Sodium Potassium Chloride Carbon Dioxide Anion Gap BUN Creatinine Creat Clearance w eGFR Random Glucose Calcium Total Bilirubin AST ALT Alkaline Phosphatase C-Reactive Protein Total Protein Albumin Total Amylase Lipase Active Medications Generic Name Dose Route Start Last Admin Trade Name Freq PRN Reason Stop Dose Admin Acetaminophen 650 mg 04/05/17 22:19 04/07/17 18:32 Tylenol - PO 650 mg Q4H PRN Administration PAIN Albuterol/Ipratropium 1 amp 04/06/17 00:00 04/08/17 05:30 Duoneb - NEB Not Given QIDR DOMITILA Ascorbic Acid 500 mg 04/06/17 10:00 04/07/17 09:58 Vitamin C - PO 500 mg DAILY [facility]A Administration Diltiazem HCl 240 mg 04/06/17 10:00 04/07/17 09:58 Cardizem Cd - PO 240 mg DAILY [facility] Administration Diphenhydramine HCl 25 mg 04/05/17 22:19 Benadryl - PO HS PRN INSOMNIA Ferrous Sulfate 325 mg 04/06/17 10:00 04/07/17 09:58 Feosol - PO 325 mg DAILY [facility] Administration Folic Acid 1 mg 04/06/17 10:00 04/07/17 09:58 Folic Acid - PO 1 mg DAILY [facility] Administration Gabapentin 200 mg 04/06/17 06:00 04/08/17 06:17 Neurontin - PO 200 mg TID [facility]ILA Administration Dextrose/Sodium Chloride 1,000 mls @ 75 mls/hr 04/05/17 22:30 04/06/17 22:29 D5-1/2ns - IV Not Given ASDIR [facility]ITILA Ceftriaxone Sodium 2 gm/ 100 mls @ 200 mls/hr 04/06/17 10:45 04/07/17 09:58 Dextrose IVPB 200 mls/hr DAILY [facility] Administration Metronidazole 100 mls @ 100 mls/hr 04/06/17 10:45 04/08/17 01:31 Flagyl 500mg Premixed Ivpb - IVPB 100 mls/hr Q8H-IV [facility]A Administration Lactobacillus Acidophilus 1 tab 04/06/17 10:00 04/07/17 09:57 Bacid - PO 1 tab DAILY [facility] Administration Melatonin 3 mg 04/05/17 23:00 04/07/17 22:20 Melatonin PO 3 mg HS [facility]ILA Administration Metoprolol Tartrate 50 mg 04/06/17 10:00 04/07/17 22:19 Lopressor - PO 50 mg BID DOMITILA Administration Montelukast Sodium 10 mg 04/06/17 22:00 04/07/17 22:19 Singulair - PO 10 mg HS [facility]ILA Administration Nystatin 1 applic 04/06/17 10:00 04/07/17 22:20 Mycostatin Cream - TP 1 applic BID DOM[facility]ILA Administration Pantoprazole Sodium 20 mg 04/06/17 10:00 04/07/17 09:58 Protonix - PO 20 mg DAILY [facility] Administration Fluticasone/Salmeterol 1 puff 04/06/17 10:00 04/07/17 22:19 Advair 100mcg/50mcg - IH 1 puff BID [facility]IL[facility] Administration ASSESSMENT: Silent acute cholecystitis with cholelithiasis. Plan: S/P cholecystostomy done yesterday, draining yellow bile. need eventual cholecystectomy with intra- op cholangiogram to evaluate cbd when acute issues are resolved. ALP could also be elevated from bone pathology. Monitor LFT. Antibiotic as per ID Visit type - Emergency Visit Emergency Visit: Yes ED Registration Date: 04/05/17 Care time: The patient presented to the Emergency Department on the above date and was hospitalized for further evaluation of their emergent condition. - New Patient This patient is new to me today: No - Critical Care Critical Care patient: No
[2017-04-08 08:20] LABS: ANION GAP 8 (8-16); CALCIUM 8.6 mg/dL (8.5-10.1); CO2 28 mmol/L (21-32)
[2017-04-08 08:23] LABS: BASOPHIL 0.3 % (0-2.0); CREATININE 0.6 mg/dL (0.7-1.3); EOSINOPHIL 3.9 % (0-4.5); GLUCOSE,RANDOM 97 mg/dL (74-106); MCH 30.2 pg (25.7-33.7); MCHC 32.8 g/dl (32.0-35.9); MEAN CELL VOLUME 91.9 fl (80-96); MEAN PLT VOLUME 7.5 fl (7.5-11.1); PLATELET COUNT 384 K/MM3 (134-434); RDW 15.6 % (11.9-15.9); WHITE BLOOD COUNT 8.5 K/mm3 (4.0-10.0)
--- NOTE | 2017-04-08 09:44 | PN ---
Progress Note, Physician Chief Complaint: Still tired and worried and had a recurrence of Sciatica pain on the right side yesterday. History of Present Illness: Patient [facility] with fevers and right sided sciatica. Found to have acute cholecystitis requiring drainage and cholecystostomy in place. Fluid had odor and was filled with pus. Today IR will attempt to aspirate Left sided collection anterior to the spine. Patient aware and willing. May start heparin IV post procedure with his Hx. of Cal - Current Medication List Current Medications: Active Medications Acetaminophen (Tylenol -) 650 mg PO Q4H PRN PRN Reason: PAIN Last Admin: 04/07/17 18:32 Dose: 650 mg Albuterol/Ipratropium (Duoneb -) 1 amp NEB QIDR [facility]S [facility]CLUDE 234 BEDS AT THE [facility] Last Admin: 04/08/17 05:30 Dose: Not Given Ascorbic Acid (Vitamin C -) 500 mg PO DAILY [facility]S INCLUDE 234 BEDS AT THE [facility] Last Admin: 04/07/17 09:58 Dose: 500 mg Diltiazem HCl (Cardizem Cd -) 240 mg PO DAILY [facility]S [facility]CLUDE 234 BEDS AT THE [facility] Last Admin: 04/07/17 09:58 Dose: 240 mg Diphenhydramine HCl (Benadryl -) 25 mg PO HS PRN PRN Reason: INSOMNIA Ferrous Sulfate (Feosol -) 325 mg PO DAILY [facility]S [facility]CLUDE 234 BEDS AT THE [facility] Last Admin: 04/07/17 09:58 Dose: 325 mg Folic Acid (Folic Acid -) 1 mg PO DAILY [facility]S INCLUDE 234 BEDS AT THE [facility] Last Admin: 04/07/17 09:58 Dose: 1 mg Gabapentin (Neurontin -) 200 mg PO TID [facility]S INCLUDE 234 BEDS AT THE [facility] Last Admin: 04/08/17 06:17 Dose: 200 mg Dextrose/Sodium Chloride (D5-1/2ns -) 1,000 mls @ 75 mls/hr IV ASDIR COUNTS INCLUDE 234 BEDS AT THE [facility] Last Admin: 04/06/17 22:29 Dose: Not Given Ceftriaxone Sodium 2 gm/ (Dextrose) 100 mls @ 200 mls/hr IVPB DAILY COUNTS INCLUDE 234 BEDS AT THE [facility] Last Admin: 04/07/17 09:58 Dose: 200 mls/hr Metronidazole (Flagyl 500mg Premixed Ivpb -) 100 mls @ 100 mls/hr IVPB Q8H-IV [facility]S INCLUDE 234 BEDS AT THE [facility] Last Admin: 04/08/17 01:31 Dose: 100 mls/hr Lactobacillus Acidophilus (Bacid -) 1 tab PO DAILY [facility]S INCLUDE 234 BEDS AT THE [facility] Last Admin: 04/07/17 09:57 Dose: 1 tab Melatonin (Melatonin) 3 mg PO HS COUNTS INCLUDE 234 BEDS AT THE [facility] Last Admin: 04/07/17 22:20 Dose: 3 mg Metoprolol Tartrate (Lopressor -) 50 mg PO BID [facility]S INCLUDE 234 BEDS AT THE [facility] Last Admin: 04/07/17 22:19 Dose: 50 mg Montelukast Sodium (Singulair -) 10 mg PO HS COUNTS INCLUDE 234 BEDS AT THE [facility] Last Admin: 04/07/17 22:19 Dose: 10 mg Nystatin (Mycostatin Cream -) 1 applic TP BID [facility]S INCLUDE 234 BEDS AT THE [facility] Last Admin: 04/07/17 22:20 Dose: 1 applic Pantoprazole Sodium (Protonix -) 20 mg PO DAILY [facility]S INCLUDE 234 BEDS AT THE [facility] Last Admin: 04/07/17 09:58 Dose: 20 mg Fluticasone/Salmeterol (Advair 100mcg/50mcg -) 1 puff IH BID COUNTS INCLUDE 234 BEDS AT THE [facility] Last Admin: 04/07/17 22:19 Dose: 1 puff Tramadol HCl (Ultram -) 50 mg PO Q6H PRN PRN Reason: PAIN - Objective Vital Signs: Vital Signs Temperature 97.7 F 04/08/17 06:57 Pulse Rate 84 04/08/17 06:57 Respiratory Rate 20 04/08/17 06:57 Blood Pressure 143/82 04/08/17 06:57 O2 Sat by Pulse Oximetry (%) 98 04/07/17 21:00 Constitutional: Yes: Calm, Pallor Eyes: Yes: Conjunctiva Clear Cardiovascular: Yes: Regular Rate and Rhythm Respiratory: Yes: Diminished, Rhonchi (Few at bases) Gastrointestinal: Yes: Soft, Other (Drain RUQ). No: Tenderness Genitourinary: No: Fragoso Present Edema: No Neurological: Yes: Alert, Oriented Labs: CBC, BMP 04/08/17 06:45 04/08/17 06:45 INR, PTT INR 1.59 (0.82-1.09) H 04/07/17 09:15 Problem List - Problems (1) Cholecystitis with cholelithiasis Assessment/Plan: Drainage of pus filled fluid in progress via cholecystostomy. Code(s): K80.10 - CALCULUS OF GALLBLADDER W CHRONIC CHOLECYST W/O OBSTRUCTION (2) Iliopsoas abscess Assessment/Plan: Aspiration of fluid will be attempted today by GLEN LOPE[facility] Code(s): K68.12 - PSOAS MUSCLE ABSCESS (3) Epidural abscess Assessment/Plan: resolving Code(s): G06.2 - EXTRADURAL AND SUBDURAL ABSCESS, UNSPECIFIED (4) Anemia Assessment/Plan: Hb stable at 8.6GM. Code(s): D64.9 - ANEMIA, UNSPECIFIED Qualifiers: Anemia type: iron deficiency (5) Atrial fibrillation Assessment/Plan: Will restart Anticoagulation after aspiration procedure today. Code(s): I48.91 - UNSPECIFIED ATRIAL FIBRILLATION Qualifiers: Atrial fibrillation type: paroxysmal Qualified Code(s): I48.0 - Paroxysmal atrial fibrillation (6) Back pain Assessment/Plan: Will order PRN pain Rx Code(s): M54.9 - DORSALGIA, UNSPECIFIED Qualifiers: Back pain location: low back pain Chronicity: acute Back pain laterality: bilateral Sciatica presence: without sciatica Qualified Code(s): M54.5 - Low back pain
[2017-04-08] MEDS ORDERED: DEXTROSE 5%-WATER 100 ML IVPB ONE (10:36)
[2017-04-08] MEDS: METOPROLOL TARTRATE 50 MG TABLET (FP) PO SCH ×2 (10:40→21:45)
[2017-04-08] MEDS: LACTOBACILLUS ACIDOPHILUS 1 EACH TAB (FP) PO SCH (10:40)
[2017-04-08] MEDS: FLUTICASONE/SALMETEROL 100 MCG/50 MCG DISKUS IH SCH ×2 (10:40→21:45)
[2017-04-08] MEDS: PANTOPRAZOLE 20 MG TABLET (FP) PO SCH (10:41)
[2017-04-08] MEDS: ASCORBIC ACID 500 MG TABLET (FP) PO SCH (10:41)
[2017-04-08] MEDS: FOLIC ACID 1 MG TABLET (FP) PO SCH (10:41)
[2017-04-08] MEDS: FERROUS SO4 325 MG TABLET (FP) PO SCH (10:41)
[2017-04-08] MEDS: NYSTATIN 100,000 UNIT/GM TOPICAL CREAM 15 GM TUBE TP SCH ×2 (10:41→21:46)
[2017-04-08] MEDS: CEFTRIAXONE 2 GM in DEXTROSE 5%-WATER 100 ML IVPB SCH (12:06)
--- NOTE | 2017-04-08 12:34 | PN ---
Progress Note, Physician History of Present Illness: S/P percutaneous biliary drain No c/o pain No buttock/leg pain No fever/ chills - Current Medication List Current Medications: Active Medications Acetaminophen (Tylenol -) 650 mg PO Q4H PRN PRN Reason: PAIN Last Admin: 04/07/17 18:32 Dose: 650 mg Albuterol/Ipratropium (Duoneb -) 1 amp NEB QIDR [facility] Last Admin: 04/08/17 11:10 Dose: 1 amp Ascorbic Acid (Vitamin C -) 500 mg PO DAILY [facility] Last Admin: 04/08/17 10:41 Dose: 500 mg Diltiazem HCl (Cardizem Cd -) 240 mg PO DAILY [facility] Last Admin: 04/08/17 10:41 Dose: 240 mg Diphenhydramine HCl (Benadryl -) 25 mg PO HS PRN PRN Reason: INSOMNIA Ferrous Sulfate (Feosol -) 325 mg PO DAILY [facility] Last Admin: 04/08/17 10:41 Dose: 325 mg Folic Acid (Folic Acid -) 1 mg PO DAILY [facility] Last Admin: 04/08/17 10:41 Dose: 1 mg Gabapentin (Neurontin -) 200 mg PO TID [facility] Last Admin: 04/08/17 06:17 Dose: 200 mg Dextrose/Sodium Chloride (D5-1/2ns -) 1,000 mls @ 75 mls/hr IV ASDIR [facility] Last Admin: 04/06/17 22:29 Dose: Not Given Ceftriaxone Sodium 2 gm/ (Dextrose) 100 mls @ 200 mls/hr IVPB DAILY [facility] Last Admin: 04/08/17 12:06 Dose: 200 mls/hr Metronidazole (Flagyl 500mg Premixed Ivpb -) 100 mls @ 100 mls/hr IVPB Q8H-IV [facility] Last Admin: 04/08/17 10:40 Dose: 100 mls/hr Lactobacillus Acidophilus (Bacid -) 1 tab PO DAILY [facility] Last Admin: 04/08/17 10:40 Dose: 1 tab Melatonin (Melatonin) 3 mg PO HS [facility] Last Admin: 04/07/17 22:20 Dose: 3 mg Metoprolol Tartrate (Lopressor -) 50 mg PO BID [facility] Last Admin: 04/08/17 10:40 Dose: 50 mg Montelukast Sodium (Singulair -) 10 mg PO HS [facility] Last Admin: 04/07/17 22:19 Dose: 10 mg Nystatin (Mycostatin Cream -) 1 applic TP BID [facility] Last Admin: 04/08/17 10:41 Dose: 1 applic Pantoprazole Sodium (Protonix -) 20 mg PO DAILY [facility] Last Admin: 04/08/17 10:41 Dose: 20 mg Fluticasone/Salmeterol (Advair 100mcg/50mcg -) 1 puff IH BID [facility] Last Admin: 04/08/17 10:40 Dose: 1 puff Tramadol HCl (Ultram -) 50 mg PO Q6H PRN PRN Reason: PAIN - Objective Vital Signs: Vital Signs Temperature 97.7 F 04/08/17 06:57 Pulse Rate 90 04/08/17 10:35 Respiratory Rate 20 04/08/17 06:57 Blood Pressure 143/82 04/08/17 06:57 O2 Sat by Pulse Oximetry (%) 94 L 04/08/17 10:35 Constitutional: Yes: No Distress Eyes: Yes: Conjunctiva Clear Cardiovascular: Yes: Regular Rate and Rhythm, S1, S2 Respiratory: Yes: CTA Bilaterally Gastrointestinal: Yes: Normal Bowel Sounds, Soft. No: Tenderness Edema: No Labs: CBC, BMP 04/08/17 06:45 04/08/17 06:45 INR, PTT INR 1.59 (0.82-1.09) H 04/07/17 09:15 Assessment/Plan S/P percutaneous GB drainage MSSA baceteremia/ vertebral osteo/ psoas abscess on tx Biliary drainage c/s NLF Will substitute zosyn pending c/s result For percutaneus draiange of psoas abscess today
--- NOTE | 2017-04-08 13:16 | PN ---
Progress Note (short form) - Note Progress Note: surgery pt seen and examined. feels well. s/p cholecystostomy. purulent bile noted in drain abd- soft, nt, Plan- will follow as outpt and make plans for cholecystectomy once medically optimized after 3 weeks.
[2017-04-08 16:15] LABS: ALBUMIN 1.8 g/dl (3.4-5.0); ALK PHOS 227 U/L (45-117); BILIRUBIN,DIRECT 0.2 mg/dL (0.0-0.2); BILIRUBIN,TOTAL 0.3 mg/dL (0.2-1.0); SGOT/AST 24 U/L (15-37); SGPT/ALT 19 U/L (12-78); TOT PROT 6.4 g/dl (6.4-8.2)
[2017-04-08] MEDS ORDERED: PIPERACILLIN/TAZOBACTAM 3.375 GM VIAL IVPB ONE ×3 (17:42→20:35)
[2017-04-08] MEDS ORDERED: DEXTROSE 5%-WATER - 50 ML IVPB ONE ×3 (17:43→20:35)
[2017-04-08] MEDS: PIPERACILLIN/TAZOB 3.375 GM 3.375 GM in DEXTROSE 5%-WATER - 50 ML IVPB SCH (17:51)
[2017-04-08] MEDS: DEXTROSE 5%-0.45% SALINE 1,000 ML IV SCH (17:53)
[2017-04-08] MEDS: MELATONIN 1 MG TABLET PO SCH (21:45)
[2017-04-08] MEDS: MONTELUKAST NA 10 MG TABLET PO SCH (21:46)
[2017-04-09] MEDS: PIPERACILLIN/TAZOB 3.375 GM 3.375 GM in DEXTROSE 5%-WATER - 50 ML IVPB SCH ×2 (01:00→12:03)
[2017-04-09] MEDS: DEXTROSE 5%-0.45% SALINE 1,000 ML IV SCH (01:25)
[2017-04-09] MEDS: METRONIDAZOLE 500 MG PREMIXED 100 ML IVPB SCH ×3 (01:29→17:23)
[2017-04-09] MEDS: ALBUTEROL SO4 2.5/IPRATROPIUM 0.5 INH SOL 3 ML VIAL.NEB. NEB SCH ×4 (06:07→17:44)
[2017-04-09] MEDS: GABAPENTIN 100 MG CAPSULE (FP) PO SCH ×3 (06:09→21:45)
[2017-04-09 07:59] LABS: BASOPHIL 0.3 % (0-2.0); MCH 29.5 pg (25.7-33.7); MEAN CELL VOLUME 92.2 fl (80-96); MEAN PLT VOLUME 7.4 fl (7.5-11.1); NEUTROPHILS 77.5 % (42.8-82.8); PLATELET COUNT 413 K/MM3 (134-434); RDW 15.6 % (11.9-15.9); WHITE BLOOD COUNT 10.4 K/mm3 (4.0-10.0)
[2017-04-09 08:25] LABS: ALBUMIN 1.9 g/dl (3.4-5.0); ALK PHOS 217 U/L (45-117); ANION GAP 10 (8-16); BILIRUBIN,TOTAL 0.6 mg/dL (0.2-1.0); CALCIUM 8.7 mg/dL (8.5-10.1); CO2 28 mmol/L (21-32); CREATININE 0.6 mg/dL (0.7-1.3); GLUCOSE,RANDOM 94 mg/dL (74-106); SGOT/AST 15 U/L (15-37); SGPT/ALT 8 U/L (12-78); TOT PROT 6.6 g/dl (6.4-8.2)
--- NOTE | 2017-04-09 09:25 | PN ---
Progress Note (short form) - Note Progress Note: NEUROSURGERY On Ceftriaxone and Flagyl PE: AF, VSS HEENT- NC/AT; Neck- supple; Cor- RR; Lungs- no wheezes; Abd- obese, benign; Ext - No sign of DVT CN- intact; Motor- 5/5 except L IP 4, L Quad/EHL/TA/gastroc/inv/ev 4-; Sensation - diminished PP/LT L L4-5 Blood culture negative to date Gallbladder- GNR Chronic L4-5 spondylolisthesis with stenosis and mechanical LBP and L L4-5 radiculopathy MSSA bacteremia with L4-5 discitis/osteomyelitis s/p 7-8 weeks of iv abx; with MRI evidence of delayed psoas abscess S/p IR drainage of gallbladder and psoas abscess DVT prophylaxis ID [id number]
[2017-04-09 09:34] LABS: ERYTHROCYTE SEDIMENTATION RATE > 130 mm/hr (0-20)
[2017-04-09] MEDS ORDERED: HEPARIN NA (PORCINE) 5,000 UNITS/ML 1ML VIAL IVPUSH PRN (10:04)
[2017-04-09] MEDS ORDERED: PT OWN MED DRAWER 7, Y5N ONE ×3 (10:18→21:00)
[2017-04-09] MEDS: LACTOBACILLUS ACIDOPHILUS 1 EACH TAB (FP) PO SCH (10:23)
[2017-04-09] MEDS: FLUTICASONE/SALMETEROL 100 MCG/50 MCG DISKUS IH SCH ×2 (10:23→21:45)
[2017-04-09] MEDS: FERROUS SO4 325 MG TABLET (FP) PO SCH (10:24)
[2017-04-09] MEDS: PANTOPRAZOLE 20 MG TABLET (FP) PO SCH (10:24)
[2017-04-09] MEDS: ASCORBIC ACID 500 MG TABLET (FP) PO SCH (10:24)
[2017-04-09] MEDS: FOLIC ACID 1 MG TABLET (FP) PO SCH (10:24)
--- NOTE | 2017-04-09 10:24 | PN ---
Progress Note, Physician Chief Complaint: Patient having right sciatica pain but pleased that the fluid collection had a drainage catheter placed yesterday. History of Present Illness: Patient feeling relieved that the 2nd catheter placement was inserted yesterday in the left sided fluid collection. Some purulent material is being drained. He still has cholecystostomy tube in place . He had recurrence of his right sided sciatica pain when the nurse tried to stand him today. Will Rx with pain Med before next attempt.Slight SOB so will D/C IV fluids and Rx with Lasix X1. - Current Medication List Current Medications: Active Medications Acetaminophen (Tylenol -) 650 mg PO Q4H PRN PRN Reason: PAIN Last Admin: 04/07/17 18:32 Dose: 650 mg Albuterol/Ipratropium (Duoneb -) 1 amp NEB QIDR [facility] Last Admin: 04/09/17 06:07 Dose: 1 amp Ascorbic Acid (Vitamin C -) 500 mg PO DAILY [facility] Last Admin: 04/08/17 10:41 Dose: 500 mg Diltiazem HCl (Cardizem Cd -) 240 mg PO DAILY [facility] Last Admin: 04/08/17 10:41 Dose: 240 mg Diphenhydramine HCl (Benadryl -) 25 mg PO HS PRN PRN Reason: INSOMNIA Ferrous Sulfate (Feosol -) 325 mg PO DAILY [facility] Last Admin: 04/08/17 10:41 Dose: 325 mg Folic Acid (Folic Acid -) 1 mg PO DAILY [facility] Last Admin: 04/08/17 10:41 Dose: 1 mg Gabapentin (Neurontin -) 200 mg PO TID [facility] Last Admin: 04/09/17 06:09 Dose: 200 mg Heparin Sodium (Porcine) (Heparin -) 1,000 unit IVPUSH PRN PRN PRN Reason: Heparin Heparin Sodium (Porcine) (Heparin -) 5,000 unit IVPUSH ONCE [facility] Metronidazole (Flagyl 500mg Premixed Ivpb -) 100 mls @ 100 mls/hr IVPB Q8H-IV [facility] Last Admin: 04/09/17 01:29 Dose: 100 mls/hr Piperacillin Sod/Tazobactam (Sod 3.375 gm/ Dextrose) 50 mls @ 100 mls/hr IVPB Q8H-IV [facility] PRN Reason: Protocol Last Admin: 04/09/17 01:00 Dose: 100 mls/hr Heparin Sodium/Dextrose (Heparin Infusion -) 500 mls @ 20 mls/hr IVPB TITR [facility]ILA ; 1,000 UNITS/HR PRN Reason: Protocol Lactobacillus Acidophilus (Bacid -) 1 tab PO DAILY [facility] Last Admin: 04/08/17 10:40 Dose: 1 tab Melatonin (Melatonin) 3 mg PO HS [facility] Last Admin: 04/08/17 21:45 Dose: 3 mg Metoprolol Tartrate (Lopressor -) 50 mg PO BID [facility] Last Admin: 04/08/17 21:45 Dose: 50 mg Montelukast Sodium (Singulair -) 10 mg PO HS [facility] Last Admin: 04/08/17 21:46 Dose: 10 mg Nystatin (Mycostatin Cream -) 1 applic TP BID [facility] Last Admin: 04/08/17 21:46 Dose: 1 applic Pantoprazole Sodium (Protonix -) 20 mg PO DAILY [facility] Last Admin: 04/08/17 10:41 Dose: 20 mg Fluticasone/Salmeterol (Advair 100mcg/50mcg -) 1 puff IH BID [facility] Last Admin: 04/08/17 21:45 Dose: 1 puff Tramadol HCl (Ultram -) 50 mg PO Q6H PRN PRN Reason: PAIN - Objective Vital Signs: Vital Signs Temperature 97.6 F 04/09/17 08:30 Pulse Rate 88 04/09/17 08:30 Respiratory Rate 20 04/09/17 08:30 Blood Pressure 146/78 04/09/17 08:30 O2 Sat by Pulse Oximetry (%) 99 04/08/17 21:00 Constitutional: Yes: Calm, Pallor Eyes: Yes: Conjunctiva Clear Cardiovascular: Yes: Regular Rate and Rhythm, Other (occ PVC's) Respiratory: Yes: Rales (at bases) Gastrointestinal: Yes: Soft Genitourinary: No: Fragoso Present Edema: No Neurological: Yes: Alert, Oriented Labs: CBC, BMP 04/09/17 06:00 04/09/17 06:00 INR, PTT INR 1.59 (0.82-1.09) H 04/07/17 09:15 Problem List - Problems (1) Cholecystitis with cholelithiasis Assessment/Plan: Having drainage from Cholecystosomy tube continue. Fluid C/S noted. Code(s): K80.10 - CALCULUS OF GALLBLADDER W CHRONIC CHOLECYST W/O OBSTRUCTION (2) Iliopsoas abscess Assessment/Plan: Drainage catheter placed yesterday. Code(s): K68.12 - PSOAS MUSCLE ABSCESS (3) Epidural abscess Assessment/Plan: Resolving Code(s): G06.2 - EXTRADURAL AND SUBDURAL ABSCESS, UNSPECIFIED (4) Anemia Assessment/Plan: Hb 8.9GM today; stable Code(s): D64.9 - ANEMIA, UNSPECIFIED Qualifiers: Anemia type: iron deficiency (5) Atrial fibrillation Code(s): I48.91 - UNSPECIFIED ATRIAL FIBRILLATION Qualifiers: Atrial fibrillation type: paroxysmal Qualified Code(s): I48.0 - Paroxysmal atrial fibrillation (6) Back pain Assessment/Plan: Still having right sided sciatica pain. Code(s): M54.9 - DORSALGIA, UNSPECIFIED Qualifiers: Back pain location: low back pain Chronicity: acute Back pain laterality: bilateral Sciatica presence: without sciatica Qualified Code(s): M54.5 - Low back pain (7) Chest congestion Assessment/Plan: Will try Lasix IV X1 and IV fluid D/Chad. Code(s): R09.89 - OTH SYMPTOMS AND SIGNS INVOLVING THE CIRC AND RESP SYSTEMS
[2017-04-09] MEDS: METOPROLOL TARTRATE 50 MG TABLET (FP) PO SCH ×2 (10:25→21:45)
[2017-04-09] MEDS: NYSTATIN 100,000 UNIT/GM TOPICAL CREAM 15 GM TUBE TP SCH ×2 (10:26→21:45)
[2017-04-09] MEDS ORDERED: PIPERACILLIN/TAZOB 3.375 GM 3.375 GM in DEXTROSE 5%-WATER - 50 ML IVPB SCH (10:30)
[2017-04-09] MEDS ORDERED: FUROSEMIDE 40 MG/4 ML INJECTABLE VIAL IVPUSH ONE (10:37)
--- NOTE | 2017-04-09 11:35 | PN ---
Progress Note, Physician History of Present Illness: S/P drainage, L psoas collection Had recurrent R buttock/ LE pain today- unable to wt bear No c/o abdominal pain No fever/ chills - Current Medication List Current Medications: Active Medications Acetaminophen (Tylenol -) 650 mg PO Q4H PRN PRN Reason: PAIN Last Admin: 04/07/17 18:32 Dose: 650 mg Albuterol/Ipratropium (Duoneb -) 1 amp NEB QIDR [facility] Last Admin: 04/09/17 06:07 Dose: 1 amp Ascorbic Acid (Vitamin C -) 500 mg PO DAILY [facility] Last Admin: 04/09/17 10:24 Dose: 500 mg Diltiazem HCl (Cardizem Cd -) 240 mg PO DAILY [facility] Last Admin: 04/09/17 10:24 Dose: 240 mg Diphenhydramine HCl (Benadryl -) 25 mg PO HS PRN PRN Reason: INSOMNIA Ferrous Sulfate (Feosol -) 325 mg PO DAILY [facility] Last Admin: 04/09/17 10:24 Dose: 325 mg Folic Acid (Folic Acid -) 1 mg PO DAILY [facility] Last Admin: 04/09/17 10:24 Dose: 1 mg Gabapentin (Neurontin -) 200 mg PO TID [facility] Last Admin: 04/09/17 06:09 Dose: 200 mg Heparin Sodium (Porcine) (Heparin -) 1,000 unit IVPUSH PRN PRN PRN Reason: Heparin Heparin Sodium (Porcine) (Heparin -) 5,000 unit IVPUSH ONCE [facility] Metronidazole (Flagyl 500mg Premixed Ivpb -) 100 mls @ 100 mls/hr IVPB Q8H-IV [facility] Last Admin: 04/09/17 10:24 Dose: 100 mls/hr Heparin Sodium/Dextrose (Heparin Infusion -) 500 mls @ 20 mls/hr IVPB TITR [facility] ; 1,000 UNITS/HR PRN Reason: Protocol Piperacillin Sod/Tazobactam (Sod 3.375 gm/ Dextrose) 50 mls @ 100 mls/hr IVPB Q8H-IV [facility] PRN Reason: Protocol Lactobacillus Acidophilus (Bacid -) 1 tab PO DAILY [facility] Last Admin: 04/09/17 10:23 Dose: 1 tab Melatonin (Melatonin) 3 mg PO HS [facility] Last Admin: 04/08/17 21:45 Dose: 3 mg Metoprolol Tartrate (Lopressor -) 50 mg PO BID [facility] Last Admin: 04/09/17 10:25 Dose: 50 mg Montelukast Sodium (Singulair -) 10 mg PO HS [facility] Last Admin: 04/08/17 21:46 Dose: 10 mg Nystatin (Mycostatin Cream -) 1 applic TP BID [facility] Last Admin: 04/09/17 10:26 Dose: 1 applic Pantoprazole Sodium (Protonix -) 20 mg PO DAILY [facility] Last Admin: 04/09/17 10:24 Dose: 20 mg Fluticasone/Salmeterol (Advair 100mcg/50mcg -) 1 puff IH BID [facility] Last Admin: 04/09/17 10:23 Dose: 1 puff Tramadol HCl (Ultram -) 50 mg PO Q6H PRN PRN Reason: PAIN - Objective Vital Signs: Vital Signs Temperature 97.6 F 04/09/17 08:30 Pulse Rate 88 04/09/17 08:30 Respiratory Rate 20 04/09/17 08:30 Blood Pressure 146/78 04/09/17 08:30 O2 Sat by Pulse Oximetry (%) 99 04/08/17 21:00 Constitutional: Yes: No Distress Eyes: Yes: Conjunctiva Clear Cardiovascular: Yes: Regular Rate and Rhythm, S1, S2 Respiratory: Yes: CTA Bilaterally Gastrointestinal: Yes: Normal Bowel Sounds, Soft, Other (+ biliary drain in place + L psoas drain in place). No: Tenderness Peripheral Pulses WNL: No Labs: CBC, BMP 04/09/17 06:00 04/09/17 06:00 INR, PTT INR 1.59 (0.82-1.09) H 04/07/17 09:15 Assessment/Plan S/P percutaneous GB drainage MSSA baceteremia/ vertebral osteo/ psoas abscess on tx S/P L psoas abscess drainage Biliary drainage c/s E coli x2 Psoas abscess drain c/s pending Resume ceftriaxone 2gn IVPB daily
[2017-04-09] MEDS: HEPARIN NA (PORCINE) 5,000 UNITS/ML 1ML VIAL IVPUSH SCH (11:46)
[2017-04-09] MEDS: HEPARIN INFUSION - 500 ML IVPB SCH (11:48)
[2017-04-09] MEDS ORDERED: DEXTROSE 5%-WATER 100 ML IVPB ONE (14:02)
[2017-04-09] MEDS: CEFTRIAXONE 2 GM in DEXTROSE 5%-WATER 100 ML IVPB SCH (14:06)
[2017-04-09] MEDS: MONTELUKAST NA 10 MG TABLET PO SCH (21:45)
[2017-04-09] MEDS: MELATONIN 1 MG TABLET PO SCH (21:46)
[2017-04-10] MEDS: ALBUTEROL SO4 2.5/IPRATROPIUM 0.5 INH SOL 3 ML VIAL.NEB. NEB SCH ×5 (00:02→23:00)
[2017-04-10] MEDS: METRONIDAZOLE 500 MG PREMIXED 100 ML IVPB SCH ×3 (01:45→17:20)
[2017-04-10] MEDS: HEPARIN NA (PORCINE) 5,000 UNITS/ML 1ML VIAL IVPUSH SCH ×2 (03:45→10:58)
[2017-04-10] MEDS: GABAPENTIN 100 MG CAPSULE (FP) PO SCH ×3 (06:20→21:52)
[2017-04-10 07:59] LABS: BASOPHIL 0.4 % (0-2.0); MCHC 33.1 g/dl (32.0-35.9); MEAN CELL VOLUME 90.5 fl (80-96); MEAN PLT VOLUME 7.5 fl (7.5-11.1); NEUTROPHILS 73.4 % (42.8-82.8); PLATELET COUNT 437 K/MM3 (134-434); RDW 15.4 % (11.9-15.9); WHITE BLOOD COUNT 11.3 K/mm3 (4.0-10.0)
[2017-04-10] MEDS: HEPARIN INFUSION - 500 ML IVPB SCH ×2 (08:39→10:56)
[2017-04-10 08:50] LABS: CALCIUM 8.7 mg/dL (8.5-10.1)
[2017-04-10 08:54] LABS: ANION GAP 10 (8-16); CO2 30 mmol/L (21-32); CREATININE 0.5 mg/dL (0.7-1.3); GLUCOSE,RANDOM 84 mg/dL (74-106)
[2017-04-10 10:35] LABS: ERYTHROCYTE SEDIMENTATION RATE > 130 mm/hr (0-20)
[2017-04-10] MEDS ORDERED: DEXTROSE 5%-WATER 100 ML IVPB ONE (10:52)
[2017-04-10] MEDS: CEFTRIAXONE 2 GM in DEXTROSE 5%-WATER 100 ML IVPB SCH (10:55)
[2017-04-10] MEDS: FLUTICASONE/SALMETEROL 100 MCG/50 MCG DISKUS IH SCH ×2 (10:56→21:50)
[2017-04-10] MEDS: LACTOBACILLUS ACIDOPHILUS 1 EACH TAB (FP) PO SCH (10:57)
[2017-04-10] MEDS: METOPROLOL TARTRATE 50 MG TABLET (FP) PO SCH ×2 (10:57→21:52)
[2017-04-10] MEDS: FOLIC ACID 1 MG TABLET (FP) PO SCH (10:57)
[2017-04-10] MEDS: FERROUS SO4 325 MG TABLET (FP) PO SCH (10:57)
[2017-04-10] MEDS: NYSTATIN 100,000 UNIT/GM TOPICAL CREAM 15 GM TUBE TP SCH ×2 (10:57→21:52)
[2017-04-10] MEDS: PANTOPRAZOLE 20 MG TABLET (FP) PO SCH (10:58)
[2017-04-10] MEDS: ASCORBIC ACID 500 MG TABLET (FP) PO SCH (10:58)
[2017-04-10] MEDS: HEPARIN NA (PORCINE) 5,000 UNITS/ML 1ML VIAL IVPUSH PRN ×2 (11:02→18:46)
[2017-04-10] MEDS: traMADol HCL 50 MG TABLET PO PRN (11:02)
--- NOTE | 2017-04-10 11:13 | PN ---
Progress Note, Physician Chief Complaint: Pain right buttock radiating down under right leg to the ankle 2-3 minutes after sitting up. History of Present Illness: Patient with recent admission for MSSA sepsis and Acute Discitis, Osteomyelitis and epidural Abscess was readmitted from [facility] for low grade temps and sudden onset right sided low back pain radiating down his right leg to his ankle. This first happened when he was siting in an ill fitting wheelchair last Tuesday at [facility] and has continued. To complicate matters he was noted on admission ER scans to have a distended Gall Bladder compatible with Acute Cholecystitis and 2 new collections on the LEFT side around the Psoas and Iliacus muscles. A drain was placed by IR in the Gall bladder and 1 of the accessible collections. C/S from GB + and we are awaiting for the C/S from the collection drainage. Await F/U Dr. Mirza to reevaluate the sciatica type right sided pain. I have held the Eliquis in favor of IV heparin until we are sure no further procedures need to be done. Hx: A. Fib. On IV antibiotics from IR. Over 3500cc urine output fro 1 dose Lasix yesterday. - Current Medication List Current Medications: Active Medications Acetaminophen (Tylenol -) 650 mg PO Q4H PRN PRN Reason: PAIN Last Admin: 04/07/17 18:32 Dose: 650 mg Albuterol/Ipratropium (Duoneb -) 1 amp NEB QIDR [facility] Last Admin: 04/10/17 06:26 Dose: 1 amp Ascorbic Acid (Vitamin C -) 500 mg PO DAILY [facility] Last Admin: 04/10/17 10:58 Dose: 500 mg Diltiazem HCl (Cardizem Cd -) 240 mg PO DAILY [facility] Last Admin: 04/10/17 10:57 Dose: 240 mg Diphenhydramine HCl (Benadryl -) 25 mg PO HS PRN PRN Reason: INSOMNIA Ferrous Sulfate (Feosol -) 325 mg PO DAILY [facility] Last Admin: 04/10/17 10:57 Dose: 325 mg Folic Acid (Folic Acid -) 1 mg PO DAILY [facility] Last Admin: 04/10/17 10:57 Dose: 1 mg Gabapentin (Neurontin -) 200 mg PO TID [facility] Last Admin: 04/10/17 06:20 Dose: 200 mg Heparin Sodium (Porcine) (Heparin -) 1,000 unit IVPUSH PRN PRN PRN Reason: Heparin Heparin Sodium (Porcine) (Heparin -) 5,000 unit IVPUSH ONCE [facility] Last Admin: 04/10/17 10:58 Dose: Not Given Metronidazole (Flagyl 500mg Premixed Ivpb -) 100 mls @ 100 mls/hr IVPB Q8H-IV [facility] Last Admin: 04/10/17 01:45 Dose: 100 mls/hr Heparin Sodium/Dextrose (Heparin Infusion -) 500 mls @ 20 mls/hr IVPB TITR [facility] ; 1,000 UNITS/HR PRN Reason: Protocol Last Admin: 04/10/17 10:56 Dose: 28 mls/hr Ceftriaxone Sodium 2 gm/ (Dextrose) 100 mls @ 200 mls/hr IVPB DAILY [facility] Last Admin: 04/10/17 10:55 Dose: 200 mls/hr Lactobacillus Acidophilus (Bacid -) 1 tab PO DAILY [facility] Last Admin: 04/10/17 10:57 Dose: 1 tab Melatonin (Melatonin) 3 mg PO HS [facility] Last Admin: 04/09/17 21:46 Dose: 3 mg Metoprolol Tartrate (Lopressor -) 50 mg PO BID [facility] Last Admin: 04/10/17 10:57 Dose: 50 mg Montelukast Sodium (Singulair -) 10 mg PO HS [facility] Last Admin: 04/09/17 21:45 Dose: 10 mg Nystatin (Mycostatin Cream -) 1 applic TP BID [facility] Last Admin: 04/10/17 10:57 Dose: 1 applic Pantoprazole Sodium (Protonix -) 20 mg PO DAILY [facility] Last Admin: 04/10/17 10:58 Dose: 20 mg Fluticasone/Salmeterol (Advair 100mcg/50mcg -) 1 puff IH BID [facility] Last Admin: 04/10/17 10:56 Dose: 1 puff Tramadol HCl (Ultram -) 50 mg PO Q6H PRN PRN Reason: PAIN - Objective Vital Signs: Vital Signs Temperature 98.6 F 04/10/17 08:46 Pulse Rate 90 04/10/17 08:46 Respiratory Rate 20 04/10/17 08:46 Blood Pressure 131/75 04/10/17 08:46 O2 Sat by Pulse Oximetry (%) 94 L 04/09/17 09:00 Constitutional: Yes: Calm Eyes: Yes: Conjunctiva Clear Cardiovascular: Yes: Regular Rate and Rhythm Respiratory: Yes: Diminished, Rhonchi (few at bases) Gastrointestinal: Yes: Soft (constipated.) Genitourinary: No: Fragoso Present Edema: No Neurological: Yes: Alert, Oriented Labs: CBC, BMP 04/10/17 06:00 04/10/17 06:00 INR, PTT INR 1.59 (0.82-1.09) H 04/07/17 09:15 Problem List - Problems (1) Cholecystitis with cholelithiasis Assessment/Plan: C/S of drainage fluid + E.Coli; on antibiotic RX. Code(s): K80.10 - CALCULUS OF GALLBLADDER W CHRONIC CHOLECYST W/O OBSTRUCTION (2) Iliopsoas abscess Assessment/Plan: Drainage still appears purulent. Code(s): K68.12 - PSOAS MUSCLE ABSCESS (3) Epidural abscess Assessment/Plan: Resolving Code(s): G06.2 - EXTRADURAL AND SUBDURAL ABSCESS, UNSPECIFIED (4) Anemia Assessment/Plan: Hb 8.8 GM. needed 1 unit packed cells twice in the last 4 weeks. Code(s): D64.9 - ANEMIA, UNSPECIFIED Qualifiers: Anemia type: iron deficiency (5) Atrial fibrillation Assessment/Plan: On IV heparin and will be switched to Eliquis when there is more certainty that no more procedures will be indicated. Code(s): I48.91 - UNSPECIFIED ATRIAL FIBRILLATION Qualifiers: Atrial fibrillation type: paroxysmal Qualified Code(s): I48.0 - Paroxysmal atrial fibrillation (6) Back pain Assessment/Plan: Severe on right side down to leg after sitting for 2-3 minutes Code(s): M54.9 - DORSALGIA, UNSPECIFIED Qualifiers: Back pain location: low back pain Chronicity: acute Back pain laterality: bilateral Sciatica presence: without sciatica Qualified Code(s): M54.5 - Low back pain (7) Chest congestion Assessment/Plan: Improved after Lasix x1 dose yesterday. Code(s): R09.89 - OTH SYMPTOMS AND SIGNS INVOLVING THE CIRC AND RESP SYSTEMS
[2017-04-10] MEDS ORDERED: LORazepam 0.5 MG TABLET PO PRN (11:21)
--- NOTE | 2017-04-10 12:39 | PN ---
Progress Note, Physician History of Present Illness: Awake in bed Was unable to bear wt yesterday because of R buttock and R LE pain Will attempt to get OOB today No fever/ chills - Current Medication List Current Medications: Active Medications Acetaminophen (Tylenol -) 650 mg PO Q4H PRN PRN Reason: PAIN Last Admin: 04/07/17 18:32 Dose: 650 mg Albuterol/Ipratropium (Duoneb -) 1 amp NEB QIDR [facility] Last Admin: 04/10/17 11:39 Dose: 1 amp Ascorbic Acid (Vitamin C -) 500 mg PO DAILY [facility] Last Admin: 04/10/17 10:58 Dose: 500 mg Diltiazem HCl (Cardizem Cd -) 240 mg PO DAILY [facility] Last Admin: 04/10/17 10:57 Dose: 240 mg Diphenhydramine HCl (Benadryl -) 25 mg PO HS PRN PRN Reason: INSOMNIA Ferrous Sulfate (Feosol -) 325 mg PO DAILY [facility] Last Admin: 04/10/17 10:57 Dose: 325 mg Folic Acid (Folic Acid -) 1 mg PO DAILY [facility] Last Admin: 04/10/17 10:57 Dose: 1 mg Gabapentin (Neurontin -) 200 mg PO TID [facility] Last Admin: 04/10/17 06:20 Dose: 200 mg Heparin Sodium (Porcine) (Heparin -) 1,000 unit IVPUSH PRN PRN PRN Reason: Heparin Last Admin: 04/10/17 11:02 Dose: 1,000 unit Heparin Sodium (Porcine) (Heparin -) 5,000 unit IVPUSH ONCE [facility] Last Admin: 04/10/17 10:58 Dose: Not Given Metronidazole (Flagyl 500mg Premixed Ivpb -) 100 mls @ 100 mls/hr IVPB Q8H-IV [facility] Last Admin: 04/10/17 12:12 Dose: 100 mls/hr Heparin Sodium/Dextrose (Heparin Infusion -) 500 mls @ 20 mls/hr IVPB TITR [facility] ; 1,000 UNITS/HR PRN Reason: Protocol Last Admin: 04/10/17 10:56 Dose: 28 mls/hr Ceftriaxone Sodium 2 gm/ (Dextrose) 100 mls @ 200 mls/hr IVPB DAILY [facility] Last Admin: 04/10/17 10:55 Dose: 200 mls/hr Lactobacillus Acidophilus (Bacid -) 1 tab PO DAILY [facility] Last Admin: 04/10/17 10:57 Dose: 1 tab Lorazepam (Ativan -) 0.5 mg PO HS PRN PRN Reason: INSOMNIA Melatonin (Melatonin) 3 mg PO HS [facility] Last Admin: 04/09/17 21:46 Dose: 3 mg Metoprolol Tartrate (Lopressor -) 50 mg PO BID [facility] Last Admin: 04/10/17 10:57 Dose: 50 mg Montelukast Sodium (Singulair -) 10 mg PO HS [facility] Last Admin: 04/09/17 21:45 Dose: 10 mg Nystatin (Mycostatin Cream -) 1 applic TP BID [facility] Last Admin: 04/10/17 10:57 Dose: 1 applic Pantoprazole Sodium (Protonix -) 20 mg PO DAILY [facility] Last Admin: 04/10/17 10:58 Dose: 20 mg Polyethylene Glycol (Miralax (For Daily Use) -) 17 gm PO DAILY [facility] Fluticasone/Salmeterol (Advair 100mcg/50mcg -) 1 puff IH BID [facility] Last Admin: 04/10/17 10:56 Dose: 1 puff Tramadol HCl (Ultram -) 50 mg PO Q6H PRN PRN Reason: PAIN Last Admin: 04/10/17 11:02 Dose: 50 mg - Objective Vital Signs: Vital Signs Temperature 98.6 F 04/10/17 08:46 Pulse Rate 90 04/10/17 08:46 Respiratory Rate 20 04/10/17 08:46 Blood Pressure 131/75 04/10/17 08:46 O2 Sat by Pulse Oximetry (%) 94 L 04/09/17 09:00 Constitutional: Yes: No Distress Eyes: Yes: Conjunctiva Clear Cardiovascular: Yes: Regular Rate and Rhythm, S1, S2 Respiratory: Yes: CTA Bilaterally Gastrointestinal: Yes: Normal Bowel Sounds, Soft, Other (+ clear green bile in biliary drain + moon-colored fluid in psoas drain). No: Tenderness Labs: CBC, BMP 04/10/17 06:00 04/10/17 06:00 INR, PTT INR 1.59 (0.82-1.09) H 04/07/17 09:15 Assessment/Plan S/P percutaneous GB drainage MSSA baceteremia/ vertebral osteo/ psoas abscess on tx S/P L psoas abscess drainage Biliary drainage c/s E coli x2 Psoas abscess drain c/s pending Continue ceftriaxone 2gn IVPB daily/ Flagyl 500mg q8h
[2017-04-10] MEDS: POLYETHYLENE GLYCOL 3350 119 GM BTL PO SCH (14:34)
[2017-04-10] MEDS ORDERED: PT OWN MED DRAWER 7, Y5N ONE (21:20)
[2017-04-10] MEDS: MONTELUKAST NA 10 MG TABLET PO SCH (21:52)
[2017-04-10] MEDS: MELATONIN 1 MG TABLET PO SCH (21:52)
[2017-04-11] MEDS: METRONIDAZOLE 500 MG PREMIXED 100 ML IVPB SCH ×3 (01:15→18:01)
[2017-04-11] MEDS: ALBUTEROL SO4 2.5/IPRATROPIUM 0.5 INH SOL 3 ML VIAL.NEB. NEB SCH ×3 (06:00→17:52)
[2017-04-11] MEDS: GABAPENTIN 100 MG CAPSULE (FP) PO SCH ×3 (06:49→21:58)
[2017-04-11 08:13] LABS: MCH 29.7 pg (25.7-33.7); MCHC 32.9 g/dl (32.0-35.9); MEAN CELL VOLUME 90.3 fl (80-96); MEAN PLT VOLUME 7.6 fl (7.5-11.1); PLATELET COUNT 433 K/MM3 (134-434); RDW 15.7 % (11.9-15.9)
[2017-04-11] MEDS ORDERED: DEXTROSE 5%-WATER 100 ML IVPB ONE (09:08)
[2017-04-11] MEDS: traMADol HCL 50 MG TABLET PO PRN (09:11)
[2017-04-11] MEDS: ASCORBIC ACID 500 MG TABLET (FP) PO SCH (09:12)
[2017-04-11] MEDS: METOPROLOL TARTRATE 50 MG TABLET (FP) PO SCH ×2 (09:12→21:58)
[2017-04-11] MEDS: FOLIC ACID 1 MG TABLET (FP) PO SCH (09:12)
[2017-04-11] MEDS: PANTOPRAZOLE 20 MG TABLET (FP) PO SCH (09:12)
[2017-04-11] MEDS: FERROUS SO4 325 MG TABLET (FP) PO SCH (09:12)
[2017-04-11] MEDS: LACTOBACILLUS ACIDOPHILUS 1 EACH TAB (FP) PO SCH (09:12)
[2017-04-11] MEDS: CEFTRIAXONE 2 GM in DEXTROSE 5%-WATER 100 ML IVPB SCH (09:13)
[2017-04-11] MEDS: POLYETHYLENE GLYCOL 3350 119 GM BTL PO SCH (09:14)
[2017-04-11] MEDS: FLUTICASONE/SALMETEROL 100 MCG/50 MCG DISKUS IH SCH ×2 (09:15→21:59)
[2017-04-11] MEDS: HEPARIN NA (PORCINE) 5,000 UNITS/ML 1ML VIAL IVPUSH SCH (10:38)
[2017-04-11] MEDS: HEPARIN INFUSION - 500 ML IVPB SCH ×2 (10:39→18:01)
--- NOTE | 2017-04-11 11:39 | PN ---
<Ward Argueta - Last Filed: 04/11/17 11:40> Physical Exam: SUBJECTIVE: Patient seen and examined Patient lying comfortably in bed. Denies pain abdomen, nausea, vomiting. cholecystostmy tube in situ draining green color bile. Tube site normal. 2nd drain in psoas abscess. afebrile, wbc 11.0 alp trending down OBJECTIVE:tube in situ Vital Signs Period Temp Pulse Resp BP Sys/Cat Pulse Ox Last 24 Hr 97.9 F-98.3 F 79-92 18-20 139-147/79-90 94-96 GENERAL: The patient is awake, alert, and fully oriented, in no acute distress. HEAD: Normal with no signs of trauma. EYES: sclera anicteric, conjunctiva clear. ENT: moist mucous membranes. LUNGS: Breath sounds equal, b/l crackles present, no accessory muscle use. HEART:sis2 normal. ABDOMEN: Soft, nontender, nondistended, normoactive bowel sounds, no guarding, no rebound, cholecystostomy drain in situ, EXTREMITIES: warm, no edema. SKIN: Warm, Laboratory Results - last 24 hr 04/10/17 04/11/17 04/11/17 17:00 01:00 06:00 WBC 11.0 H RBC 3.06 L Hgb 9.1 L Hct 27.6 L MCV 90.3 MCH 29.7 MCHC 32.9 RDW 15.7 Plt Count 433 MPV 7.6 PTT (Actin FS) 42.8 H 59.3 H D Stool Occult Blood 04/11/17 04/11/17 06:00 07:35 WBC RBC Hgb Hct MCV MCH MCHC RDW Plt Count MPV PTT (Actin FS) 52.1 H Stool Occult Blood Negative Active Medications Generic Name Dose Route Start Last Admin Trade Name Freq PRN Reason Stop Dose Admin Acetaminophen 650 mg 04/05/17 22:19 04/07/17 18:32 Tylenol - PO 650 mg Q4H PRN Administration PAIN Albuterol/Ipratropium 1 amp 04/06/17 00:00 04/11/17 11:27 Duoneb - NEB 1 amp QIDR [facility] Administration Ascorbic Acid 500 mg 04/06/17 10:00 04/11/17 09:12 Vitamin C - PO 500 mg DAILY [facility] Administration Diltiazem HCl 240 mg 04/06/17 10:00 04/11/17 09:12 Cardizem Cd - PO 240 mg DAILY [facility] Administration Diphenhydramine HCl 25 mg 04/05/17 22:19 Benadryl - PO HS PRN INSOMNIA Ferrous Sulfate 325 mg 04/06/17 10:00 04/11/17 09:12 Feosol - PO 325 mg DAILY [facility] Administration Folic Acid 1 mg 04/06/17 10:00 04/11/17 09:12 Folic Acid - PO 1 mg DAILY [facility] Administration Gabapentin 200 mg 04/06/17 06:00 04/11/17 06:49 Neurontin - PO 200 mg TID [facility] Administration Heparin Sodium (Porcine) 1,000 unit 04/09/17 10:04 04/10/17 18:46 Heparin - IVPUSH 1,000 unit PRN PRN Administration Heparin Heparin Sodium (Porcine) 5,000 unit 04/09/17 10:15 04/11/17 10:38 Heparin - IVPUSH Not Given ONCE [facility] Metronidazole 100 mls @ 100 mls/hr 04/06/17 10:45 04/11/17 09:13 Flagyl 500mg Premixed Ivpb - IVPB 100 mls/hr Q8H-IV [facility] Administration Heparin Sodium/Dextrose 500 mls @ 20 mls/hr 04/09/17 10:15 04/11/17 10:39 Heparin Infusion - IVPB Not Given TITR [facility] Protocol 1,000 UNITS/HR Ceftriaxone Sodium 2 gm/ 100 mls @ 200 mls/hr 04/09/17 11:45 04/11/17 09:13 Dextrose IVPB 200 mls/hr DAILY [facility] Administration Lactobacillus Acidophilus 1 tab 04/06/17 10:00 04/11/17 09:12 Bacid - PO 1 tab DAILY [facility] Administration Lorazepam 0.5 mg 04/10/17 11:21 Ativan - PO HS PRN INSOMNIA Melatonin 3 mg 04/05/17 23:00 04/10/17 21:52 Melatonin PO 3 mg HS [facility] Administration Metoprolol Tartrate 50 mg 04/06/17 10:00 04/11/17 09:12 Lopressor - PO 50 mg BID [facility] Administration Montelukast Sodium 10 mg 04/06/17 22:00 04/10/17 21:52 Singulair - PO 10 mg HS [facility] Administration Nystatin 1 applic 04/06/17 10:00 04/10/17 21:52 Mycostatin Cream - TP 1 applic BID [facility] Administration Pantoprazole Sodium 20 mg 04/06/17 10:00 04/11/17 09:12 Protonix - PO 20 mg DAILY [facility] Administration Polyethylene Glycol 17 gm 04/10/17 11:00 04/11/17 09:14 Miralax (For Daily Use) - PO Not Given DAILY [facility] Fluticasone/Salmeterol 1 puff 04/06/17 10:00 04/11/17 09:15 Advair 100mcg/50mcg - IH 1 puff BID [facility] Administration Tramadol HCl 50 mg 04/08/17 09:36 04/11/17 09:11 Ultram - PO 50 mg Q6H PRN Administration PAIN ASSESSMENT/PLAN: Silent acute cholecystitis with cholelithiasis. Plan: S/P cholecystostomy, draining bile. need eventual cholecystectomy with intra- op cholangiogram to evaluate cbd when acute issues are resolved. ALP trending down. Will get GGT Monitor LFT. Antibiotic as per ID Visit type - Emergency Visit Emergency Visit: Yes ED Registration Date: 04/05/17 Care time: The patient presented to the Emergency Department on the above date and was hospitalized for further evaluation of their emergent condition. - New Patient This patient is new to me today: No - Critical Care Critical Care patient: No <TyshawndexlavelleHonorio Tay - Last Filed: 04/11/17 11:48> Physical Exam: SUBJECTIVE: Patient seen and examined OBJECTIVE: Vital Signs Period Temp Pulse Resp BP Sys/Cat Pulse Ox Last 24 Hr 97.9 F-98.3 F 79-92 18-20 139-147/79-90 94-96 GENERAL: The patient is awake, alert, and fully oriented, in no acute distress. HEAD: Normal with no signs of trauma. EYES: PERRL, extraocular movements intact, sclera anicteric, conjunctiva clear. No ptosis. ENT: Ears normal, nares patent, oropharynx clear without exudates, moist mucous membranes. NECK: Trachea midline, full range of motion, supple. LUNGS: Breath sounds equal, clear to auscultation bilaterally, no wheezes, no crackles, no accessory muscle use. HEART: Regular rate and rhythm, S1, S2 without murmur, rub or gallop. ABDOMEN: Soft, nontender, nondistended, normoactive bowel sounds, no guarding, no rebound, no hepatosplenomegaly, no masses. EXTREMITIES: 2+ pulses, warm, well-perfused, no edema. NEUROLOGICAL: Cranial nerves II through XII grossly intact. Normal speech, gait not observed. PSYCH: Normal mood, normal affect. SKIN: Warm, dry, normal turgor, no rashes or lesions noted Laboratory Results - last 24 hr 04/10/17 04/11/17 04/11/17 17:00 01:00 06:00 WBC 11.0 H RBC 3.06 L Hgb 9.1 L Hct 27.6 L MCV 90.3 MCH 29.7 MCHC 32.9 RDW 15.7 Plt Count 433 MPV 7.6 PTT (Actin FS) 42.8 H 59.3 H D Stool Occult Blood 04/11/17 04/11/17 06:00 07:35 WBC RBC Hgb Hct MCV MCH MCHC RDW Plt Count MPV PTT (Actin FS) 52.1 H Stool Occult Blood Negative Active Medications Generic Name Dose Route Start Last Admin Trade Name Freq PRN Reason Stop Dose Admin Acetaminophen 650 mg 04/05/17 22:19 04/07/17 18:32 Tylenol - PO 650 mg Q4H PRN Administration PAIN Albuterol/Ipratropium 1 amp 04/06/17 00:00 04/11/17 11:27 Duoneb - NEB 1 amp QIDR [facility] Administration Ascorbic Acid 500 mg 04/06/17 10:00 04/11/17 09:12 Vitamin C - PO 500 mg DAILY [facility] Administration Diltiazem HCl 240 mg 04/06/17 10:00 04/11/17 09:12 Cardizem Cd - PO 240 mg DAILY [facility] Administration Diphenhydramine HCl 25 mg 04/05/17 22:19 Benadryl - PO HS PRN INSOMNIA Ferrous Sulfate 325 mg 04/06/17 10:00 04/11/17 09:12 Feosol - PO 325 mg DAILY [facility] Administration Folic Acid 1 mg 04/06/17 10:00 04/11/17 09:12 Folic Acid - PO 1 mg DAILY [facility] Administration Gabapentin 200 mg 04/06/17 06:00 04/11/17 06:49 Neurontin - PO 200 mg TID [facility] Administration Heparin Sodium (Porcine) 1,000 unit 04/09/17 10:04 04/10/17 18:46 Heparin - IVPUSH 1,000 unit PRN PRN Administration Heparin Heparin Sodium (Porcine) 5,000 unit 04/09/17 10:15 04/11/17 10:38 Heparin - IVPUSH Not Given ONCE [facility] Metronidazole 100 mls @ 100 mls/hr 04/06/17 10:45 04/11/17 09:13 Flagyl 500mg Premixed Ivpb - IVPB 100 mls/hr Q8H-IV [facility] Administration Heparin Sodium/Dextrose 500 mls @ 20 mls/hr 04/09/17 10:15 04/11/17 10:39 Heparin Infusion - IVPB Not Given TITR [facility] Protocol 1,000 UNITS/HR Ceftriaxone Sodium 2 gm/ 100 mls @ 200 mls/hr 04/09/17 11:45 04/11/17 09:13 Dextrose IVPB 200 mls/hr DAILY [facility] Administration Lactobacillus Acidophilus 1 tab 04/06/17 10:00 04/11/17 09:12 Bacid - PO 1 tab DAILY [facility] Administration Lorazepam 0.5 mg 04/10/17 11:21 Ativan - PO HS PRN INSOMNIA Melatonin 3 mg 04/05/17 23:00 04/10/17 21:52 Melatonin PO 3 mg HS [facility] Administration Metoprolol Tartrate 50 mg 04/06/17 10:00 04/11/17 09:12 Lopressor - PO 50 mg BID [facility] Administration Montelukast Sodium 10 mg 04/06/17 22:00 04/10/17 21:52 Singulair - PO 10 mg HS [facility] Administration Nystatin 1 applic 04/06/17 10:00 04/10/17 21:52 Mycostatin Cream - TP 1 applic BID [facility] Administration Pantoprazole Sodium 20 mg 04/06/17 10:00 04/11/17 09:12 Protonix - PO 20 mg DAILY [facility] Administration Polyethylene Glycol 17 gm 04/10/17 11:00 04/11/17 09:14 Miralax (For Daily Use) - PO Not Given DAILY [facility] Fluticasone/Salmeterol 1 puff 04/06/17 10:00 04/11/17 09:15 Advair 100mcg/50mcg - IH 1 puff BID [facility] Administration Tramadol HCl 50 mg 04/08/17 09:36 07/24/17 09:11 Ultram - PO 50 mg Q6H PRN Administration PAIN ASSESSMENT/PLAN: Ky continues with right sciatica pain. No adbominal pain. Cholecystostomy tube functioning properly. Hi salk phos is decreasing PE: Alert Abd: BS normoactive, nontender IMpression: Cholecystitis managed with cholecystostomy tube drainage. Will ultimately need cholecystectomy Liat Ramírez M.D.
--- NOTE | 2017-04-11 13:38 | PN ---
Progress Note, Physician History of Present Illness: Awake, alert Continues to experience R buttock pain with radiation down R LE No c/o abdominal pain No fever/ chills GB c/s E coli, Bacteroides Psoas abscess c/s no growth - Current Medication List Current Medications: Active Medications Acetaminophen (Tylenol -) 650 mg PO Q4H PRN PRN Reason: PAIN Last Admin: 04/07/17 18:32 Dose: 650 mg Albuterol/Ipratropium (Duoneb -) 1 amp NEB QIDR [facility] Last Admin: 04/11/17 11:27 Dose: 1 amp Ascorbic Acid (Vitamin C -) 500 mg PO DAILY [facility] Last Admin: 04/11/17 09:12 Dose: 500 mg Diltiazem HCl (Cardizem Cd -) 240 mg PO DAILY [facility] Last Admin: 04/11/17 09:12 Dose: 240 mg Diphenhydramine HCl (Benadryl -) 25 mg PO HS PRN PRN Reason: INSOMNIA Ferrous Sulfate (Feosol -) 325 mg PO DAILY [facility] Last Admin: 04/11/17 09:12 Dose: 325 mg Folic Acid (Folic Acid -) 1 mg PO DAILY [facility] Last Admin: 04/11/17 09:12 Dose: 1 mg Gabapentin (Neurontin -) 200 mg PO TID [facility] Last Admin: 04/11/17 06:49 Dose: 200 mg Heparin Sodium (Porcine) (Heparin -) 1,000 unit IVPUSH PRN PRN PRN Reason: Heparin Last Admin: 04/10/17 18:46 Dose: 1,000 unit Heparin Sodium (Porcine) (Heparin -) 5,000 unit IVPUSH ONCE [facility] Last Admin: 04/11/17 10:38 Dose: Not Given Metronidazole (Flagyl 500mg Premixed Ivpb -) 100 mls @ 100 mls/hr IVPB Q8H-IV [facility] Last Admin: 04/11/17 09:13 Dose: 100 mls/hr Heparin Sodium/Dextrose (Heparin Infusion -) 500 mls @ 20 mls/hr IVPB TITR [facility] ; 1,000 UNITS/HR PRN Reason: Protocol Last Admin: 04/11/17 10:39 Dose: Not Given Ceftriaxone Sodium 2 gm/ (Dextrose) 100 mls @ 200 mls/hr IVPB DAILY [facility] Last Admin: 04/11/17 09:13 Dose: 200 mls/hr Lactobacillus Acidophilus (Bacid -) 1 tab PO DAILY [facility] Last Admin: 04/11/17 09:12 Dose: 1 tab Lorazepam (Ativan -) 0.5 mg PO HS PRN PRN Reason: INSOMNIA Melatonin (Melatonin) 3 mg PO HS [facility] Last Admin: 04/10/17 21:52 Dose: 3 mg Metoprolol Tartrate (Lopressor -) 50 mg PO BID [facility] Last Admin: 04/11/17 09:12 Dose: 50 mg Montelukast Sodium (Singulair -) 10 mg PO HS [facility] Last Admin: 04/10/17 21:52 Dose: 10 mg Nystatin (Mycostatin Cream -) 1 applic TP BID [facility] Last Admin: 04/10/17 21:52 Dose: 1 applic Pantoprazole Sodium (Protonix -) 20 mg PO DAILY [facility] Last Admin: 04/11/17 09:12 Dose: 20 mg Polyethylene Glycol (Miralax (For Daily Use) -) 17 gm PO DAILY [facility] Last Admin: 04/11/17 09:14 Dose: Not Given Fluticasone/Salmeterol (Advair 100mcg/50mcg -) 1 puff IH BID [facility] Last Admin: 04/11/17 09:15 Dose: 1 puff Tramadol HCl (Ultram -) 50 mg PO Q6H PRN PRN Reason: PAIN Last Admin: 04/11/17 09:11 Dose: 50 mg - Objective Vital Signs: Vital Signs Temperature 97.9 F 04/11/17 06:00 Pulse Rate 82 04/11/17 11:27 Respiratory Rate 20 04/11/17 06:00 Blood Pressure 144/85 04/11/17 06:00 O2 Sat by Pulse Oximetry (%) 96 04/11/17 11:27 Constitutional: Yes: No Distress Eyes: Yes: Conjunctiva Clear Cardiovascular: Yes: Regular Rate and Rhythm, S1, S2 Respiratory: Yes: Diminished Gastrointestinal: Yes: Normal Bowel Sounds, Soft, Other (Clear bile in RUQ drain Horta serous fluid in BILL). 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
[2017-04-11] MEDS: NYSTATIN 100,000 UNIT/GM TOPICAL CREAM 15 GM TUBE TP SCH ×2 (14:00→22:02)
--- NOTE | 2017-04-11 15:21 | PN ---
Progress Note, Physician Chief Complaint: Mr Santacruz says he is doing well. No cp, sob, n/v. - Current Medication List Current Medications: Active Medications Acetaminophen (Tylenol -) 650 mg PO Q4H PRN PRN Reason: PAIN Last Admin: 04/07/17 18:32 Dose: 650 mg Albuterol/Ipratropium (Duoneb -) 1 amp NEB QIDR [facility] Last Admin: 04/11/17 11:27 Dose: 1 amp Ascorbic Acid (Vitamin C -) 500 mg PO DAILY [facility] Last Admin: 04/11/17 09:12 Dose: 500 mg Diltiazem HCl (Cardizem Cd -) 240 mg PO DAILY [facility] Last Admin: 04/11/17 09:12 Dose: 240 mg Diphenhydramine HCl (Benadryl -) 25 mg PO HS PRN PRN Reason: INSOMNIA Ferrous Sulfate (Feosol -) 325 mg PO DAILY [facility] Last Admin: 04/11/17 09:12 Dose: 325 mg Folic Acid (Folic Acid -) 1 mg PO DAILY [facility] Last Admin: 04/11/17 09:12 Dose: 1 mg Gabapentin (Neurontin -) 200 mg PO TID [facility] Last Admin: 04/11/17 14:06 Dose: 200 mg Heparin Sodium (Porcine) (Heparin -) 1,000 unit IVPUSH PRN PRN PRN Reason: Heparin Last Admin: 04/10/17 18:46 Dose: 1,000 unit Heparin Sodium (Porcine) (Heparin -) 5,000 unit IVPUSH ONCE [facility] Last Admin: 04/11/17 10:38 Dose: Not Given Metronidazole (Flagyl 500mg Premixed Ivpb -) 100 mls @ 100 mls/hr IVPB Q8H-IV [facility] Last Admin: 04/11/17 09:13 Dose: 100 mls/hr Heparin Sodium/Dextrose (Heparin Infusion -) 500 mls @ 20 mls/hr IVPB TITR [facility] ; 1,000 UNITS/HR PRN Reason: Protocol Last Admin: 04/11/17 10:39 Dose: Not Given Ceftriaxone Sodium 2 gm/ (Dextrose) 100 mls @ 200 mls/hr IVPB DAILY [facility] Last Admin: 04/11/17 09:13 Dose: 200 mls/hr Lactobacillus Acidophilus (Bacid -) 1 tab PO DAILY [facility] Last Admin: 04/11/17 09:12 Dose: 1 tab Lorazepam (Ativan -) 0.5 mg PO HS PRN PRN Reason: INSOMNIA Melatonin (Melatonin) 3 mg PO HS [facility] Last Admin: 04/10/17 21:52 Dose: 3 mg Metoprolol Tartrate (Lopressor -) 50 mg PO BID [facility] Last Admin: 04/11/17 09:12 Dose: 50 mg Montelukast Sodium (Singulair -) 10 mg PO HS [facility] Last Admin: 04/10/17 21:52 Dose: 10 mg Nystatin (Mycostatin Cream -) 1 applic TP BID [facility] Last Admin: 04/11/17 14:00 Dose: 1 applic Oxycodone/Acetaminophen (Percocet 5/325 -) 1 combo PO Q4HPO PRN PRN Reason: PAIN Pantoprazole Sodium (Protonix -) 20 mg PO DAILY [facility] Last Admin: 04/11/17 09:12 Dose: 20 mg Polyethylene Glycol (Miralax (For Daily Use) -) 17 gm PO DAILY [facility] Last Admin: 04/11/17 09:14 Dose: Not Given Fluticasone/Salmeterol (Advair 100mcg/50mcg -) 1 puff IH BID [facility] Last Admin: 04/11/17 09:15 Dose: 1 puff - Objective Vital Signs: Vital Signs Temperature 97.5 F L 04/11/17 14:14 Pulse Rate 79 04/11/17 14:14 Respiratory Rate 20 04/11/17 14:14 Blood Pressure 145/81 04/11/17 14:14 O2 Sat by Pulse Oximetry (%) 96 04/11/17 11:27 Constitutional: Yes: Well Nourished, No Distress, Calm Cardiovascular: Yes: Pulse Irregular. No: Tachycardia, Gallop, Murmur, Rub Respiratory: Yes: Regular, CTA Bilaterally. No: Rales, Rhonchi, Wheezes Gastrointestinal: Yes: Normal Bowel Sounds, Soft, Other (drain in place with purulent fluid). No: Distention, Tenderness Extremities: Yes: WNL Edema: No Labs: CBC, BMP 04/11/17 06:00 04/10/17 06:00 INR, PTT INR 1.59 (0.82-1.09) H 04/07/17 09:15 Assessment/Plan (1) Cholecystitis with cholelithiasis Assessment/Plan: -ID following -continue rocephin and flagyl Code(s): K80.10 - CALCULUS OF GALLBLADDER W CHRONIC CHOLECYST W/O OBSTRUCTION (2) Iliopsoas abscess Assessment/Plan: -drainage still purulent with sediment -culture NGTD -ID following Code(s): K68.12 - PSOAS MUSCLE ABSCESS (3) Epidural abscess Assessment/Plan: -resolving -neurosurgery following Code(s): G06.2 - EXTRADURAL AND SUBDURAL ABSCESS, UNSPECIFIED (4) Anemia Assessment/Plan: -s/p transfusion -monitor Code(s): D64.9 - ANEMIA, UNSPECIFIED Qualifiers: Anemia type: iron deficiency (5) Atrial fibrillation Assessment/Plan: -controlled -continue heparin gtt until no further procedures are needed Code(s): I48.91 - UNSPECIFIED ATRIAL FIBRILLATION Qualifiers: Atrial fibrillation type: paroxysmal Qualified Code(s): I48.0 - Paroxysmal atrial fibrillation (6) Back pain Assessment/Plan: -trial of percocet -monitor for improvement Code(s): M54.9 - DORSALGIA, UNSPECIFIED Qualifiers: Back pain location: low back pain Chronicity: acute Back pain laterality: bilateral Sciatica presence: without sciatica Qualified Code(s): M54.5 - Low back pain (7) Chest congestion Assessment/Plan -resolved -monitor Code(s): R09.89 - OTH SYMPTOMS AND SIGNS INVOLVING THE CIRC AND RESP SYSTEMS
[2017-04-11] MEDS ORDERED: PT OWN MED DRAWER 7, Y5N ONE (21:27)
[2017-04-11] MEDS: MELATONIN 1 MG TABLET PO SCH (21:58)
[2017-04-11] MEDS: MONTELUKAST NA 10 MG TABLET PO SCH (21:58)
[2017-04-11] MEDS: oxyCODONE HCL 5 MG TABLET PO PRN (23:44)
[2017-04-12] MEDS: METRONIDAZOLE 500 MG PREMIXED 100 ML IVPB SCH ×3 (02:35→18:40)
[2017-04-12] MEDS: ALBUTEROL SO4 2.5/IPRATROPIUM 0.5 INH SOL 3 ML VIAL.NEB. NEB SCH ×4 (06:40→18:20)
[2017-04-12] MEDS: GABAPENTIN 100 MG CAPSULE (FP) PO SCH ×3 (06:43→22:11)
[2017-04-12 07:38] LABS: MCH 29.9 pg (25.7-33.7); MCHC 33.2 g/dl (32.0-35.9); MEAN CELL VOLUME 90.2 fl (80-96); MEAN PLT VOLUME 7.4 fl (7.5-11.1); PLATELET COUNT 446 K/MM3 (134-434); WHITE BLOOD COUNT 12.6 K/mm3 (4.0-10.0)
[2017-04-12 07:53] LABS: ANION GAP 7 (8-16); CALCIUM 8.7 mg/dL (8.5-10.1); CO2 31 mmol/L (21-32); GLUCOSE,RANDOM 99 mg/dL (74-106); MAGNESIUM 1.5 mg/dL (1.8-2.4)
[2017-04-12 07:54] LABS: CREATININE 0.5 mg/dL (0.7-1.3); PHOSPHOROUS 3.8 mg/dL (2.5-4.9)
[2017-04-12] MEDS ORDERED: DEXTROSE 5%-WATER 100 ML IVPB ONE (10:53)
[2017-04-12] MEDS: HEPARIN INFUSION - 500 ML IVPB SCH (11:05)
[2017-04-12] MEDS: ACETAMINOPHEN 325 MG TABLET (FP) PO PRN (11:06)
[2017-04-12] MEDS: oxyCODONE HCL 5 MG TABLET PO PRN ×2 (11:06→19:54)
[2017-04-12] MEDS: METOPROLOL TARTRATE 50 MG TABLET (FP) PO SCH ×2 (11:11→22:11)
[2017-04-12] MEDS: PANTOPRAZOLE 20 MG TABLET (FP) PO SCH (11:11)
[2017-04-12] MEDS: ASCORBIC ACID 500 MG TABLET (FP) PO SCH (11:11)
[2017-04-12] MEDS: FERROUS SO4 325 MG TABLET (FP) PO SCH (11:11)
[2017-04-12] MEDS: FOLIC ACID 1 MG TABLET (FP) PO SCH (11:11)
[2017-04-12] MEDS: LACTOBACILLUS ACIDOPHILUS 1 EACH TAB (FP) PO SCH (11:11)
[2017-04-12] MEDS: FLUTICASONE/SALMETEROL 100 MCG/50 MCG DISKUS IH SCH ×2 (11:12→22:12)
[2017-04-12] MEDS: NYSTATIN 100,000 UNIT/GM TOPICAL CREAM 15 GM TUBE TP SCH ×2 (11:12→22:12)
[2017-04-12] MEDS: HEPARIN NA (PORCINE) 5,000 UNITS/ML 1ML VIAL IVPUSH SCH (11:13)
[2017-04-12] MEDS: POLYETHYLENE GLYCOL 3350 119 GM BTL PO SCH (11:13)
--- NOTE | 2017-04-12 12:31 | PN ---
Progress Note, Physician Chief Complaint: Mr Santacruz says he is doing well. No cp, sob, n/v. - Current Medication List Current Medications: Active Medications Acetaminophen (Tylenol -) 650 mg PO Q4H PRN PRN Reason: PAIN Last Admin: 04/07/17 18:32 Dose: 650 mg Acetaminophen (Tylenol -) 325 mg PO Q4H PRN PRN Reason: PAIN Stop: 04/14/17 15:24 Last Admin: 04/12/17 11:06 Dose: 325 mg Albuterol/Ipratropium (Duoneb -) 1 amp NEB QIDR [facility] Last Admin: 04/12/17 11:11 Dose: 1 amp Ascorbic Acid (Vitamin C -) 500 mg PO DAILY [facility] Last Admin: 04/12/17 11:11 Dose: 500 mg Diltiazem HCl (Cardizem Cd -) 240 mg PO DAILY [facility] Last Admin: 04/12/17 11:11 Dose: 240 mg Diphenhydramine HCl (Benadryl -) 25 mg PO HS PRN PRN Reason: INSOMNIA Ferrous Sulfate (Feosol -) 325 mg PO DAILY [facility] Last Admin: 04/12/17 11:11 Dose: 325 mg Folic Acid (Folic Acid -) 1 mg PO DAILY [facility] Last Admin: 04/12/17 11:11 Dose: 1 mg Gabapentin (Neurontin -) 200 mg PO TID [facility] Last Admin: 04/12/17 06:43 Dose: 200 mg Heparin Sodium (Porcine) (Heparin -) 1,000 unit IVPUSH PRN PRN PRN Reason: Heparin Last Admin: 04/10/17 18:46 Dose: 1,000 unit Heparin Sodium (Porcine) (Heparin -) 5,000 unit IVPUSH ONCE [facility] Last Admin: 04/12/17 11:13 Dose: Not Given Metronidazole (Flagyl 500mg Premixed Ivpb -) 100 mls @ 100 mls/hr IVPB Q8H-IV [facility] Last Admin: 04/12/17 11:11 Dose: 100 mls/hr Heparin Sodium/Dextrose (Heparin Infusion -) 500 mls @ 20 mls/hr IVPB TITR [facility] ; 1,000 UNITS/HR PRN Reason: Protocol Last Admin: 04/12/17 11:05 Dose: 30 mls/hr Ceftriaxone Sodium 2 gm/ (Dextrose) 100 mls @ 200 mls/hr IVPB DAILY [facility] Last Admin: 04/11/17 09:13 Dose: 200 mls/hr Lactobacillus Acidophilus (Bacid -) 1 tab PO DAILY [facility] Last Admin: 04/12/17 11:11 Dose: 1 tab Lorazepam (Ativan -) 0.5 mg PO HS PRN PRN Reason: INSOMNIA Melatonin (Melatonin) 3 mg PO HS [facility] Last Admin: 04/11/17 21:58 Dose: 3 mg Metoprolol Tartrate (Lopressor -) 50 mg PO BID [facility] Last Admin: 04/12/17 11:11 Dose: 50 mg Montelukast Sodium (Singulair -) 10 mg PO HS [facility] Last Admin: 04/11/17 21:58 Dose: 10 mg Nystatin (Mycostatin Cream -) 1 applic TP BID [facility] Last Admin: 04/12/17 11:12 Dose: 1 applic Oxycodone HCl (Roxicodone -) 5 mg PO Q4H PRN PRN Reason: PAIN Last Admin: 04/12/17 11:06 Dose: 5 mg Pantoprazole Sodium (Protonix -) 20 mg PO DAILY [facility] Last Admin: 04/12/17 11:11 Dose: 20 mg Polyethylene Glycol (Miralax (For Daily Use) -) 17 gm PO DAILY [facility] Last Admin: 04/12/17 11:13 Dose: Not Given Fluticasone/Salmeterol (Advair 100mcg/50mcg -) 1 puff IH BID [facility] Last Admin: 04/12/17 11:12 Dose: 1 puff - Objective Vital Signs: Vital Signs Temperature 97.8 F 04/12/17 09:07 Pulse Rate 89 04/12/17 11:10 Respiratory Rate 20 04/12/17 09:07 Blood Pressure 132/78 04/12/17 09:07 O2 Sat by Pulse Oximetry (%) 99 04/12/17 11:10 Constitutional: Yes: Well Nourished, No Distress, Calm Cardiovascular: Yes: Regular Rate and Rhythm. No: Gallop, Murmur, Rub Respiratory: Yes: Regular, CTA Bilaterally. No: Rales, Rhonchi, Wheezes Gastrointestinal: Yes: Normal Bowel Sounds, Soft. No: Distention, Tenderness Extremities: Yes: WNL Edema: No Labs: CBC, BMP 04/12/17 06:00 04/12/17 06:00 INR, PTT INR 1.59 (0.82-1.09) H 04/07/17 09:15 Assessment/Plan (1) Cholecystitis with cholelithiasis Assessment/Plan: -ID following -continue rocephin and flagyl -case discussed and will finish soon -no surgery this admission Code(s): K80.10 - CALCULUS OF GALLBLADDER W CHRONIC CHOLECYST W/O OBSTRUCTION (2) Iliopsoas abscess Assessment/Plan: -drainage improved today -culture NGTD -ID following -will need to be removed before discharge Code(s): K68.12 - PSOAS MUSCLE ABSCESS (3) Epidural abscess Assessment/Plan: -resolving -neurosurgery following Code(s): G06.2 - EXTRADURAL AND SUBDURAL ABSCESS, UNSPECIFIED (4) Anemia Assessment/Plan: -s/p transfusion -monitor Code(s): D64.9 - ANEMIA, UNSPECIFIED Qualifiers: Anemia type: iron deficiency (5) Atrial fibrillation Assessment/Plan: -controlled -continue heparin gtt until no further procedures are needed Code(s): I48.91 - UNSPECIFIED ATRIAL FIBRILLATION Qualifiers: Atrial fibrillation type: paroxysmal Qualified Code(s): I48.0 - Paroxysmal atrial fibrillation (6) Back pain Assessment/Plan: -trial of percocet -monitor for improvement Code(s): M54.9 - DORSALGIA, UNSPECIFIED Qualifiers: Back pain location: low back pain Chronicity: acute Back pain laterality: bilateral Sciatica presence: without sciatica Qualified Code(s): M54.5 - Low back pain (7) Chest congestion Assessment/Plan -resolved -monitor Code(s): R09.89 - OTH SYMPTOMS AND SIGNS INVOLVING THE CIRC AND RESP SYSTEMS
[2017-04-12] MEDS: CEFTRIAXONE 2 GM in DEXTROSE 5%-WATER 100 ML IVPB SCH (13:05)
[2017-04-12] MEDS ORDERED: PT OWN MED DRAWER 7, Y5N ONE (19:50)
[2017-04-12] MEDS: MELATONIN 1 MG TABLET PO SCH (22:11)
[2017-04-12] MEDS: MONTELUKAST NA 10 MG TABLET PO SCH (22:12)
[2017-04-13] MEDS: METRONIDAZOLE 500 MG PREMIXED 100 ML IVPB SCH ×3 (01:30→17:19)
[2017-04-13] MEDS: GABAPENTIN 100 MG CAPSULE (FP) PO SCH ×3 (06:22→21:43)
[2017-04-13] MEDS: HEPARIN INFUSION - 500 ML IVPB SCH ×3 (06:24→21:07)
[2017-04-13] MEDS: ALBUTEROL SO4 2.5/IPRATROPIUM 0.5 INH SOL 3 ML VIAL.NEB. NEB SCH ×4 (06:35→18:00)
[2017-04-13 07:14] LABS: BASOPHIL 0.7 % (0-2.0); EOSINOPHIL 4.7 % (0-4.5); MCH 29.6 pg (25.7-33.7); MCHC 32.8 g/dl (32.0-35.9); MEAN CELL VOLUME 90.1 fl (80-96); MEAN PLT VOLUME 7.3 fl (7.5-11.1); NEUTROPHILS 73.9 % (42.8-82.8); PLATELET COUNT 463 K/MM3 (134-434); RDW 15.8 % (11.9-15.9); WHITE BLOOD COUNT 12.9 K/mm3 (4.0-10.0)
[2017-04-13 07:52] LABS: ANION GAP 10 (8-16); BILIRUBIN,TOTAL 0.4 mg/dL (0.2-1.0); CALCIUM 8.8 mg/dL (8.5-10.1); CO2 29 mmol/L (21-32); CREATININE 0.5 mg/dL (0.7-1.3); GLUCOSE,RANDOM 94 mg/dL (74-106); MAGNESIUM 1.7 mg/dL (1.8-2.4); PHOSPHOROUS 3.8 mg/dL (2.5-4.9); SGOT/AST 11 U/L (15-37); SGPT/ALT < 6 U/L (12-78); TOT PROT 7.1 g/dl (6.4-8.2)
[2017-04-13 07:53] LABS: ALK PHOS 106 U/L (45-117)
[2017-04-13] MEDS: oxyCODONE HCL 5 MG TABLET PO PRN ×2 (07:53→13:38)
[2017-04-13] MEDS: ACETAMINOPHEN 325 MG TABLET (FP) PO PRN ×2 (07:54→13:37)
[2017-04-13] MEDS ORDERED: DEXTROSE 5%-WATER 100 ML IVPB ONE (09:41)
[2017-04-13] MEDS: LACTOBACILLUS ACIDOPHILUS 1 EACH TAB (FP) PO SCH (10:00)
[2017-04-13] MEDS: FERROUS SO4 325 MG TABLET (FP) PO SCH (10:01)
[2017-04-13] MEDS: FOLIC ACID 1 MG TABLET (FP) PO SCH (10:01)
[2017-04-13] MEDS: METOPROLOL TARTRATE 50 MG TABLET (FP) PO SCH ×2 (10:02→21:43)
[2017-04-13] MEDS: NYSTATIN 100,000 UNIT/GM TOPICAL CREAM 15 GM TUBE TP SCH ×2 (10:05→21:44)
[2017-04-13] MEDS: PANTOPRAZOLE 20 MG TABLET (FP) PO SCH (10:05)
[2017-04-13] MEDS: CEFTRIAXONE 2 GM in DEXTROSE 5%-WATER 100 ML IVPB SCH (10:05)
[2017-04-13] MEDS: POLYETHYLENE GLYCOL 3350 119 GM BTL PO SCH (10:05)
[2017-04-13] MEDS: ASCORBIC ACID 500 MG TABLET (FP) PO SCH (10:06)
[2017-04-13] MEDS: MAGNESIUM OXIDE 400 MG TABLET (FP) PO SCH ×2 (11:13→21:43)
[2017-04-13] MEDS: FLUTICASONE/SALMETEROL 100 MCG/50 MCG DISKUS IH SCH ×2 (11:13→21:44)
--- NOTE | 2017-04-13 11:18 | PN ---
Progress Note, Physician Chief Complaint: Mr Santacruz says he is doing well. No cp, sob, n/v. Concerned about back pain, requesting to speak with Dr Mirza. - Current Medication List Current Medications: Active Medications Acetaminophen (Tylenol -) 650 mg PO Q4H PRN PRN Reason: PAIN Last Admin: 04/07/17 18:32 Dose: 650 mg Acetaminophen (Tylenol -) 325 mg PO Q4H PRN PRN Reason: PAIN Stop: 04/14/17 15:24 Last Admin: 04/13/17 07:54 Dose: 325 mg Albuterol/Ipratropium (Duoneb -) 1 amp NEB QIDR [facility] Last Admin: 04/13/17 06:35 Dose: 1 amp Ascorbic Acid (Vitamin C -) 500 mg PO DAILY [facility] Last Admin: 04/13/17 10:06 Dose: 500 mg Diltiazem HCl (Cardizem Cd -) 240 mg PO DAILY [facility] Last Admin: 04/13/17 10:01 Dose: 240 mg Diphenhydramine HCl (Benadryl -) 25 mg PO HS PRN PRN Reason: INSOMNIA Ferrous Sulfate (Feosol -) 325 mg PO DAILY [facility] Last Admin: 04/13/17 10:01 Dose: 325 mg Folic Acid (Folic Acid -) 1 mg PO DAILY [facility] Last Admin: 04/13/17 10:01 Dose: 1 mg Gabapentin (Neurontin -) 200 mg PO TID [facility] Last Admin: 04/13/17 06:22 Dose: 200 mg Heparin Sodium (Porcine) (Heparin -) 1,000 unit IVPUSH PRN PRN PRN Reason: Heparin Last Admin: 04/10/17 18:46 Dose: 1,000 unit Heparin Sodium (Porcine) (Heparin -) 5,000 unit IVPUSH ONCE [facility] Last Admin: 04/12/17 11:13 Dose: Not Given Metronidazole (Flagyl 500mg Premixed Ivpb -) 100 mls @ 100 mls/hr IVPB Q8H-IV [facility] Last Admin: 04/13/17 11:13 Dose: 100 mls/hr Heparin Sodium/Dextrose (Heparin Infusion -) 500 mls @ 20 mls/hr IVPB TITR [facility] ; 1,000 UNITS/HR PRN Reason: Protocol Last Admin: 04/13/17 09:58 Dose: 30 mls/hr Ceftriaxone Sodium 2 gm/ (Dextrose) 100 mls @ 200 mls/hr IVPB DAILY [facility] Last Admin: 04/13/17 10:05 Dose: 200 mls/hr Lactobacillus Acidophilus (Bacid -) 1 tab PO DAILY [facility] Last Admin: 04/13/17 10:00 Dose: 1 tab Lorazepam (Ativan -) 0.5 mg PO HS PRN PRN Reason: INSOMNIA Magnesium Oxide (Mag-Ox -) 400 mg PO BID [facility] Last Admin: 04/13/17 11:13 Dose: 400 mg Melatonin (Melatonin) 3 mg PO HS [facility] Last Admin: 04/12/17 22:11 Dose: 3 mg Metoprolol Tartrate (Lopressor -) 50 mg PO BID [facility] Last Admin: 04/13/17 10:02 Dose: 50 mg Montelukast Sodium (Singulair -) 10 mg PO HS [facility] Last Admin: 04/12/17 22:12 Dose: 10 mg Nystatin (Mycostatin Cream -) 1 applic TP BID [facility] Last Admin: 04/13/17 10:05 Dose: 1 applic Oxycodone HCl (Roxicodone -) 5 mg PO Q4H PRN PRN Reason: PAIN Last Admin: 04/13/17 07:53 Dose: 5 mg Pantoprazole Sodium (Protonix -) 20 mg PO DAILY [facility] Last Admin: 04/13/17 10:05 Dose: 20 mg Polyethylene Glycol (Miralax (For Daily Use) -) 17 gm PO DAILY [facility] Last Admin: 04/13/17 10:05 Dose: 17 gm Fluticasone/Salmeterol (Advair 100mcg/50mcg -) 1 puff IH BID [facility] Last Admin: 04/13/17 11:13 Dose: 1 puff - Objective Vital Signs: Vital Signs Temperature 98.3 F 04/13/17 10:00 Pulse Rate 81 04/13/17 10:00 Respiratory Rate 20 04/13/17 10:00 Blood Pressure 138/80 04/13/17 10:00 O2 Sat by Pulse Oximetry (%) 99 04/12/17 21:00 Constitutional: Yes: Well Nourished, No Distress, Calm Cardiovascular: Yes: Pulse Irregular. No: Tachycardia, Gallop, Murmur, Rub Respiratory: Yes: Regular, CTA Bilaterally. No: Rales, Rhonchi, Wheezes Gastrointestinal: Yes: Normal Bowel Sounds, Soft. No: Distention, Tenderness Extremities: Yes: WNL Edema: No Labs: CBC, BMP 04/13/17 06:00 04/13/17 06:00 INR, PTT INR 1.59 (0.82-1.09) H 04/07/17 09:15 Assessment/Plan (1) Cholecystitis with cholelithiasis Assessment/Plan: -ID following -continue rocephin and flagyl -case discussed and will finish soon -no surgery this admission Code(s): K80.10 - CALCULUS OF GALLBLADDER W CHRONIC CHOLECYST W/O OBSTRUCTION (2) Iliopsoas abscess Assessment/Plan: -still with purulent drainage -culture NGTD -ID following and will discuss since still draining -will need to be removed before discharge Code(s): K68.12 - PSOAS MUSCLE ABSCESS (3) Epidural abscess Assessment/Plan: -resolving -neurosurgery following Code(s): G06.2 - EXTRADURAL AND SUBDURAL ABSCESS, UNSPECIFIED (4) Anemia Assessment/Plan: -s/p transfusion -monitor Code(s): D64.9 - ANEMIA, UNSPECIFIED Qualifiers: Anemia type: iron deficiency (5) Atrial fibrillation Assessment/Plan: -controlled -continue heparin gtt until no further procedures are needed Code(s): I48.91 - UNSPECIFIED ATRIAL FIBRILLATION Qualifiers: Atrial fibrillation type: paroxysmal Qualified Code(s): I48.0 - Paroxysmal atrial fibrillation (6) Back pain Assessment/Plan: -trial of percocet -monitor for improvement -Dr Mirza for follow up consult Code(s): M54.9 - DORSALGIA, UNSPECIFIED Qualifiers: Back pain location: low back pain Chronicity: acute Back pain laterality: bilateral Sciatica presence: without sciatica Qualified Code(s): M54.5 - Low back pain (7) Chest congestion Assessment/Plan -resolved -monitor Code(s): R09.89 - OTH SYMPTOMS AND SIGNS INVOLVING THE CIRC AND RESP SYSTEMS
[2017-04-13] MEDS: HEPARIN NA (PORCINE) 5,000 UNITS/ML 1ML VIAL IVPUSH SCH (14:43)
--- NOTE | 2017-04-13 18:50 | CONSULT ---
Consult Consult Specialty:: pain medicine Referred by:: back pain - History of Present Illness Chief Complaint: back pain History of Present Illness: 77 year old man developed severe right sciatica type pain with history of epidural abcess. He also required 1 unit packed cells recently and was developing low grade fevers at [place]. ON transfer here he was noted on MRI and CAT scan to have 2 new collections in psoas and iliacus muscle but on the left side. Also noted was ? Acute Cholecystitis but no clinical symptoms. Currently, he is on oxycodone 5mg q4h with minimal pain relief and no reports no drowsiness or sedation pain score 9/10 when moving and 0-1/10 when laying flat - Past Medical History Cardiovascular: Yes: HTN Pulmonary: Yes: COPD Gastrointestinal: Yes: Other (history of choledocholithiasis s/p ERCP with Dr. Mcknight) Heme/Onc: Yes: Anemia Infectious Disease: Yes: Other (MSSA, discitis) Musculoskeletal: Yes: Chronic low back pain, Other (sciatica right side) - Past Medical History Cardio/Vascular: Yes: HTN Pulmonary: Yes: COPD Gastrointestinal: Yes: Other (history of choledocholithiasis s/p ERCP with Dr. 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 [employer] History of Recent Travel: Yes (as above) Home Medications - Allergies Allergies/Adverse Reactions: Allergies Allergy/AdvReac Type Severity Reaction Status Date / Time aloe Allergy Severe Rash Verified 03/21/17 14:21 aloe vera Allergy Severe Rash Verified 03/21/17 14:21 - Home Medications Home Medications: Ambulatory Orders Montelukast Na [Singulair -] 10 mg PO DAILY 02/10/17 Acetaminophen [Tylenol .Regular Strength -] 650 mg PO Q4H PRN #0 tablet Apixaban [Eliquis -] 5 mg PO BID tablet 03/01/17 Folic Acid - 1 mg PO DAILY tablet 03/01/17 Gabapentin [Neurontin -] 200 mg PO TID cap 03/01/17 Metoprolol Tartrate [Lopressor -] 50 mg PO BID tablet 03/01/17 Nystatin Cream [Mycostatin Cream -] 1 applic TP BID applic 03/01/17 Ipratropium/Albuterol Sulfate [Iprat-Albut 0.5-3(2.5) mg/3 ml] 3 ml IH Q4H 03/21 Melatonin 3 mg PO HS 03/21/17 Omeprazole 20 mg PO DAILY 03/22/17 Ascorbic Acid [Vitamin C -] 500 mg PO DAILY tablet 03/29/17 Diltiazem Cd [Cardizem Cd -] 240 mg PO DAILY #30 cap 03/29/17 Diphenhydramine HCl [Benadryl Capsule -] 25 mg PO HS PRN #0 cap 03/29/17 Ferrous Sulfate [Feosol] 325 mg PO DAILY tab 03/29/17 Lactobacillus Acidophilus [Bacid -] 1 tab PO DAILY tab 03/29/17 Salmeterol/Fluticasone [Advair 100Mcg/50Mcg -] 1 puff IH BID inhaler 03/29/17 Family Disease History - Family Disease History Family Disease History: Other: Father ( 44: CVA), Mother ( 93: old age) , Sister (2 sisters, healthy) Physical Exam Vital Signs: Vital Signs Temperature 97.4 F L 04/13/17 16:30 Pulse Rate 83 04/13/17 16:30 Respiratory Rate 20 04/13/17 16:30 Blood Pressure 120/71 04/13/17 16:30 O2 Sat by Pulse Oximetry (%) 94 L 04/13/17 11:26 Musculoskeletal: Yes: Back Pain Labs: CBC, BMP 04/13/17 06:00 04/13/17 06:00 Assessment/Plan Lumbar radiculopathy secondary to epidural abcess 1. Pharmacological- Neuropathic Increase gabapentin to 200mg PO Qam and 400mg PO qpm Increase oxycodone to 10mg PO q4h prn pain. he may need an additional dose 1hr prior to physical therapy Tylenol around the clock 2. PT/REHAB
[2017-04-13] MEDS: MELATONIN 1 MG TABLET PO SCH (21:43)
[2017-04-13] MEDS: MONTELUKAST NA 10 MG TABLET PO SCH (21:43)
[2017-04-14] MEDS: ALBUTEROL SO4 2.5/IPRATROPIUM 0.5 INH SOL 3 ML VIAL.NEB. NEB SCH ×4 (00:30→19:00)
[2017-04-14] MEDS: METRONIDAZOLE 500 MG PREMIXED 100 ML IVPB SCH ×3 (02:08→17:41)
[2017-04-14] MEDS: GABAPENTIN 100 MG CAPSULE (FP) PO SCH (06:47)
[2017-04-14 08:21] LABS: MCH 29.8 pg (25.7-33.7); MCHC 32.5 g/dl (32.0-35.9); MEAN CELL VOLUME 91.7 fl (80-96); MEAN PLT VOLUME 7.5 fl (7.5-11.1); PLATELET COUNT 472 K/MM3 (134-434); RDW 15.8 % (11.9-15.9); WHITE BLOOD COUNT 13.6 K/mm3 (4.0-10.0)
[2017-04-14 09:16] LABS: ANION GAP 11 (8-16); CALCIUM 8.6 mg/dL (8.5-10.1); CO2 28 mmol/L (21-32); CREATININE 0.6 mg/dL (0.7-1.3); GLUCOSE,RANDOM 91 mg/dL (74-106); MAGNESIUM 1.8 mg/dL (1.8-2.4); PHOSPHOROUS 3.1 mg/dL (2.5-4.9)
[2017-04-14] MEDS ORDERED: PT OWN MED DRAWER 7, Y5N ONE (09:46)
[2017-04-14] MEDS ORDERED: oxyCODONE HCL 5 MG TABLET PO PRN (09:50)
[2017-04-14] MEDS: LACTOBACILLUS ACIDOPHILUS 1 EACH TAB (FP) PO SCH (09:55)
[2017-04-14] MEDS: FERROUS SO4 325 MG TABLET (FP) PO SCH (09:55)
[2017-04-14] MEDS: POLYETHYLENE GLYCOL 3350 119 GM BTL PO SCH ×2 (09:56→10:08)
[2017-04-14] MEDS: MAGNESIUM OXIDE 400 MG TABLET (FP) PO SCH ×2 (09:56→22:40)
[2017-04-14] MEDS: METOPROLOL TARTRATE 50 MG TABLET (FP) PO SCH ×2 (09:56→22:38)
[2017-04-14] MEDS: PANTOPRAZOLE 20 MG TABLET (FP) PO SCH (09:56)
[2017-04-14] MEDS: FOLIC ACID 1 MG TABLET (FP) PO SCH (09:56)
[2017-04-14] MEDS: ASCORBIC ACID 500 MG TABLET (FP) PO SCH (09:57)
[2017-04-14] MEDS: NYSTATIN 100,000 UNIT/GM TOPICAL CREAM 15 GM TUBE TP SCH ×2 (09:58→22:39)
[2017-04-14] MEDS: CEFTRIAXONE 2 GM in DEXTROSE 5%-WATER 100 ML IVPB SCH (09:58)
[2017-04-14] MEDS: FLUTICASONE/SALMETEROL 100 MCG/50 MCG DISKUS IH SCH ×2 (09:58→22:39)
[2017-04-14] MEDS: HEPARIN NA (PORCINE) 5,000 UNITS/ML 1ML VIAL IVPUSH PRN (11:27)
[2017-04-14] MEDS: HEPARIN NA (PORCINE) 5,000 UNITS/ML 1ML VIAL IVPUSH SCH (11:27)
[2017-04-14] MEDS: HEPARIN INFUSION - 500 ML IVPB SCH (13:02)
--- NOTE | 2017-04-14 17:06 | PN ---
Progress Note, Physician Chief Complaint: Mr Santacruz says he does not want to take oxycodone as it gives him weird dreams. No cp, sob, n/v. Complains of weakness. - Current Medication List Current Medications: Active Medications Acetaminophen (Tylenol -) 650 mg PO Q4H PRN PRN Reason: PAIN Last Admin: 04/07/17 18:32 Dose: 650 mg Albuterol/Ipratropium (Duoneb -) 1 amp NEB QIDR [facility] Last Admin: 04/14/17 11:10 Dose: 1 amp Ascorbic Acid (Vitamin C -) 500 mg PO DAILY [facility] Last Admin: 04/14/17 09:57 Dose: 500 mg Diltiazem HCl (Cardizem Cd -) 240 mg PO DAILY [facility] Last Admin: 04/14/17 09:55 Dose: 240 mg Diphenhydramine HCl (Benadryl -) 25 mg PO HS PRN PRN Reason: INSOMNIA Ferrous Sulfate (Feosol -) 325 mg PO DAILY [facility] Last Admin: 04/14/17 09:55 Dose: 325 mg Folic Acid (Folic Acid -) 1 mg PO DAILY [facility] Last Admin: 04/14/17 09:56 Dose: 1 mg Gabapentin (Neurontin -) 200 mg PO AM [facility] Gabapentin (Neurontin -) 400 mg PO HS [facility] Heparin Sodium (Porcine) (Heparin -) 1,000 unit IVPUSH PRN PRN PRN Reason: Heparin Last Admin: 04/14/17 11:27 Dose: 1,000 unit Heparin Sodium (Porcine) (Heparin -) 5,000 unit IVPUSH ONCE [facility] Last Admin: 04/14/17 11:27 Dose: Not Given Hydromorphone HCl (Dilaudid -) 2 mg PO Q4HWA PRN PRN Reason: PAIN Metronidazole (Flagyl 500mg Premixed Ivpb -) 100 mls @ 100 mls/hr IVPB Q8H-IV [facility] Last Admin: 04/14/17 09:57 Dose: 100 mls/hr Heparin Sodium/Dextrose (Heparin Infusion -) 500 mls @ 20 mls/hr IVPB TITR [facility] ; 1,000 UNITS/HR PRN Reason: Protocol Last Admin: 04/14/17 13:02 Dose: 32 mls/hr Ceftriaxone Sodium 2 gm/ (Dextrose) 100 mls @ 200 mls/hr IVPB DAILY [facility] Last Admin: 04/14/17 09:58 Dose: 200 mls/hr Lactobacillus Acidophilus (Bacid -) 1 tab PO DAILY [facility] Last Admin: 04/14/17 09:55 Dose: 1 tab Lorazepam (Ativan -) 0.5 mg PO HS PRN PRN Reason: INSOMNIA Magnesium Oxide (Mag-Ox -) 400 mg PO BID [facility] Last Admin: 04/14/17 09:56 Dose: 400 mg Melatonin (Melatonin) 3 mg PO HS [facility] Last Admin: 04/13/17 21:43 Dose: 3 mg Metoprolol Tartrate (Lopressor -) 50 mg PO BID [facility] Last Admin: 04/14/17 09:56 Dose: 50 mg Montelukast Sodium (Singulair -) 10 mg PO HS [facility] Last Admin: 04/13/17 21:43 Dose: 10 mg Nystatin (Mycostatin Cream -) 1 applic TP BID [facility] Last Admin: 04/14/17 09:58 Dose: 1 applic Pantoprazole Sodium (Protonix -) 20 mg PO DAILY [facility] Last Admin: 04/14/17 09:56 Dose: 20 mg Polyethylene Glycol (Miralax (For Daily Use) -) 17 gm PO DAILY [facility] Last Admin: 04/14/17 10:08 Dose: Not Given Fluticasone/Salmeterol (Advair 100mcg/50mcg -) 1 puff IH BID [facility] Last Admin: 04/14/17 09:58 Dose: 1 puff - Objective Vital Signs: Vital Signs Temperature 98.2 F 04/14/17 15:29 Pulse Rate 68 04/14/17 15:29 Respiratory Rate 18 04/14/17 15:29 Blood Pressure 102/55 04/14/17 15:29 O2 Sat by Pulse Oximetry (%) 94 L 04/14/17 09:00 Constitutional: Yes: Well Nourished, No Distress, Calm Cardiovascular: Yes: Regular Rate and Rhythm. No: Gallop, Murmur, Rub Respiratory: Yes: Regular, CTA Bilaterally. No: Rales, Rhonchi, Wheezes Gastrointestinal: Yes: Normal Bowel Sounds, Soft. No: Distention, Tenderness Extremities: Yes: WNL Edema: No Labs: CBC, BMP 04/14/17 06:00 04/14/17 06:00 INR, PTT INR 1.59 (0.82-1.09) H 04/07/17 09:15 Assessment/Plan (1) Cholecystitis with cholelithiasis Assessment/Plan: -ID following -continue rocephin and flagyl -case discussed and will finish soon -no surgery this admission Code(s): K80.10 - CALCULUS OF GALLBLADDER W CHRONIC CHOLECYST W/O OBSTRUCTION (2) Iliopsoas abscess Assessment/Plan: -still with purulent drainage -culture NGTD -ID following,still draining -will need to be removed before discharge Code(s): K68.12 - PSOAS MUSCLE ABSCESS (3) Epidural abscess Assessment/Plan: -resolving -neurosurgery following Code(s): G06.2 - EXTRADURAL AND SUBDURAL ABSCESS, UNSPECIFIED (4) Anemia Assessment/Plan: -s/p transfusion -monitor Code(s): D64.9 - ANEMIA, UNSPECIFIED Qualifiers: Anemia type: iron deficiency (5) Atrial fibrillation Assessment/Plan: -controlled -continue heparin gtt until no further procedures are needed Code(s): I48.91 - UNSPECIFIED ATRIAL FIBRILLATION Qualifiers: Atrial fibrillation type: paroxysmal Qualified Code(s): I48.0 - Paroxysmal atrial fibrillation (6) Back pain Assessment/Plan: -did not like percocet -appreciate pain management assistance -gabapentin changed -trial of oral dilaudid Code(s): M54.9 - DORSALGIA, UNSPECIFIED Qualifiers: Back pain location: low back pain Chronicity: acute Back pain laterality: bilateral Sciatica presence: without sciatica Qualified Code(s): M54.5 - Low back pain (7) Chest congestion Assessment/Plan -resolved -monitor Code(s): R09.89 - OTH SYMPTOMS AND SIGNS INVOLVING THE CIRC AND RESP SYSTEMS
[2017-04-14] MEDS: GABAPENTIN 400 MG CAPSULE (FP) PO SCH (22:38)
[2017-04-14] MEDS: MELATONIN 1 MG TABLET PO SCH (22:39)
[2017-04-14] MEDS: MONTELUKAST NA 10 MG TABLET PO SCH (22:39)
[2017-04-15] MEDS: ALBUTEROL SO4 2.5/IPRATROPIUM 0.5 INH SOL 3 ML VIAL.NEB. NEB SCH ×4 (00:03→16:50)
[2017-04-15] MEDS: METRONIDAZOLE 500 MG PREMIXED 100 ML IVPB SCH ×3 (01:38→17:39)
[2017-04-15] MEDS: HEPARIN INFUSION - 500 ML IVPB SCH ×3 (04:56→19:53)
[2017-04-15] MEDS: HYDROmorphone HCL 2 MG TABLET PO PRN ×2 (05:37→11:24)
[2017-04-15] MEDS: GABAPENTIN 100 MG CAPSULE (FP) PO SCH (06:55)
[2017-04-15 07:41] LABS: MCH 30.1 pg (25.7-33.7); MCHC 33.3 g/dl (32.0-35.9); MEAN CELL VOLUME 90.3 fl (80-96); MEAN PLT VOLUME 7.2 fl (7.5-11.1); PLATELET COUNT 451 K/MM3 (134-434); RDW 15.5 % (11.9-15.9); WHITE BLOOD COUNT 11.7 K/mm3 (4.0-10.0)
[2017-04-15 08:36] LABS: ANION GAP 9 (8-16); CALCIUM 8.9 mg/dL (8.5-10.1); CO2 29 mmol/L (21-32); CREATININE 0.4 mg/dL (0.7-1.3); GLUCOSE,RANDOM 104 mg/dL (74-106); MAGNESIUM 1.9 mg/dL (1.8-2.4); PHOSPHOROUS 3.3 mg/dL (2.5-4.9)
[2017-04-15] MEDS ORDERED: DEXTROSE 5%-WATER 100 ML IVPB ONE (09:51)
[2017-04-15] MEDS: LACTOBACILLUS ACIDOPHILUS 1 EACH TAB (FP) PO SCH (09:57)
[2017-04-15] MEDS: FOLIC ACID 1 MG TABLET (FP) PO SCH (09:57)
[2017-04-15] MEDS: ASCORBIC ACID 500 MG TABLET (FP) PO SCH (09:57)
[2017-04-15] MEDS: FERROUS SO4 325 MG TABLET (FP) PO SCH (09:57)
[2017-04-15] MEDS: METOPROLOL TARTRATE 50 MG TABLET (FP) PO SCH ×2 (09:57→22:15)
[2017-04-15] MEDS: PANTOPRAZOLE 20 MG TABLET (FP) PO SCH (09:57)
[2017-04-15] MEDS: MAGNESIUM OXIDE 400 MG TABLET (FP) PO SCH ×2 (09:58→22:16)
[2017-04-15] MEDS: FLUTICASONE/SALMETEROL 100 MCG/50 MCG DISKUS IH SCH ×2 (10:03→22:26)
[2017-04-15] MEDS: POLYETHYLENE GLYCOL 3350 119 GM BTL PO SCH (10:04)
[2017-04-15] MEDS: NYSTATIN 100,000 UNIT/GM TOPICAL CREAM 15 GM TUBE TP SCH ×2 (10:04→22:16)
[2017-04-15] MEDS: CEFTRIAXONE 2 GM in DEXTROSE 5%-WATER 100 ML IVPB SCH (11:26)
[2017-04-15] MEDS: HEPARIN NA (PORCINE) 5,000 UNITS/ML 1ML VIAL IVPUSH SCH (11:26)
--- NOTE | 2017-04-15 13:02 | PN ---
Progress Note, Physician Chief Complaint: Mr Santacruz complains of sciatica. No cp, sob, n/v. - Current Medication List Current Medications: Active Medications Acetaminophen (Tylenol -) 650 mg PO Q4H PRN PRN Reason: PAIN Last Admin: 04/07/17 18:32 Dose: 650 mg Albuterol/Ipratropium (Duoneb -) 1 amp NEB QIDR [facility] Last Admin: 04/15/17 06:45 Dose: 1 amp Ascorbic Acid (Vitamin C -) 500 mg PO DAILY [facility] Last Admin: 04/15/17 09:57 Dose: 500 mg Diltiazem HCl (Cardizem Cd -) 240 mg PO DAILY [facility] Last Admin: 04/15/17 10:00 Dose: 240 mg Diphenhydramine HCl (Benadryl -) 25 mg PO HS PRN PRN Reason: INSOMNIA Ferrous Sulfate (Feosol -) 325 mg PO DAILY [facility] Last Admin: 04/15/17 09:57 Dose: 325 mg Folic Acid (Folic Acid -) 1 mg PO DAILY [facility] Last Admin: 04/15/17 09:57 Dose: 1 mg Gabapentin (Neurontin -) 200 mg PO AM [facility] Last Admin: 04/15/17 06:55 Dose: 200 mg Gabapentin (Neurontin -) 400 mg PO HS [facility] Last Admin: 04/14/17 22:38 Dose: 400 mg Heparin Sodium (Porcine) (Heparin -) 1,000 unit IVPUSH PRN PRN PRN Reason: Heparin Last Admin: 04/14/17 11:27 Dose: 1,000 unit Heparin Sodium (Porcine) (Heparin -) 5,000 unit IVPUSH ONCE [facility] Last Admin: 04/15/17 11:26 Dose: Not Given Hydromorphone HCl (Dilaudid -) 2 mg PO Q4HWA PRN PRN Reason: PAIN Last Admin: 04/15/17 11:24 Dose: 2 mg Metronidazole (Flagyl 500mg Premixed Ivpb -) 100 mls @ 100 mls/hr IVPB Q8H-IV [facility] Last Admin: 04/15/17 09:57 Dose: 100 mls/hr Heparin Sodium/Dextrose (Heparin Infusion -) 500 mls @ 20 mls/hr IVPB TITR [facility] ; 1,000 UNITS/HR PRN Reason: Protocol Last Admin: 04/15/17 10:17 Dose: Not Given Ceftriaxone Sodium 2 gm/ (Dextrose) 100 mls @ 200 mls/hr IVPB DAILY [facility] Last Admin: 04/15/17 11:26 Dose: 200 mls/hr Lactobacillus Acidophilus (Bacid -) 1 tab PO DAILY [facility] Last Admin: 04/15/17 09:57 Dose: 1 tab Lorazepam (Ativan -) 0.5 mg PO HS PRN PRN Reason: INSOMNIA Magnesium Oxide (Mag-Ox -) 400 mg PO BID [facility] Last Admin: 04/15/17 09:58 Dose: 400 mg Melatonin (Melatonin) 3 mg PO HS [facility] Last Admin: 04/14/17 22:39 Dose: 3 mg Metoprolol Tartrate (Lopressor -) 50 mg PO BID [facility] Last Admin: 04/15/17 09:57 Dose: 50 mg Montelukast Sodium (Singulair -) 10 mg PO HS [facility] Last Admin: 04/14/17 22:39 Dose: 10 mg Nystatin (Mycostatin Cream -) 1 applic TP BID [facility] Last Admin: 04/15/17 10:04 Dose: 1 applic Pantoprazole Sodium (Protonix -) 20 mg PO DAILY [facility] Last Admin: 04/15/17 09:57 Dose: 20 mg Polyethylene Glycol (Miralax (For Daily Use) -) 17 gm PO DAILY [facility] Last Admin: 04/15/17 10:04 Dose: 17 gm Fluticasone/Salmeterol (Advair 100mcg/50mcg -) 1 puff IH BID [facility] Last Admin: 04/15/17 10:03 Dose: 1 puff - Objective Vital Signs: Vital Signs Temperature 98.3 F 04/15/17 09:00 Pulse Rate 75 04/15/17 10:34 Respiratory Rate 20 04/15/17 09:00 Blood Pressure 141/79 04/15/17 09:00 O2 Sat by Pulse Oximetry (%) 97 04/15/17 10:34 Constitutional: Yes: Well Nourished, No Distress, Calm Cardiovascular: Yes: Regular Rate and Rhythm. No: Gallop, Murmur, Rub Respiratory: Yes: Regular, CTA Bilaterally. No: Rales, Rhonchi, Wheezes Gastrointestinal: Yes: Normal Bowel Sounds, Soft. No: Distention, Tenderness Extremities: Yes: WNL Edema: No Labs: CBC, BMP 04/15/17 06:40 04/15/17 06:40 INR, PTT INR 1.59 (0.82-1.09) H 04/07/17 09:15 Assessment/Plan (1) Cholecystitis with cholelithiasis Assessment/Plan: -ID following -continue rocephin and flagyl -case discussed and will finish soon -no surgery this admission Code(s): K80.10 - CALCULUS OF GALLBLADDER W CHRONIC CHOLECYST W/O OBSTRUCTION (2) Iliopsoas abscess Assessment/Plan: -purulent drainage resolved -ID to see, possible removal Code(s): K68.12 - PSOAS MUSCLE ABSCESS (3) Epidural abscess Assessment/Plan: -resolving -neurosurgery following Code(s): G06.2 - EXTRADURAL AND SUBDURAL ABSCESS, UNSPECIFIED (4) Anemia Assessment/Plan: -s/p transfusion -monitor Code(s): D64.9 - ANEMIA, UNSPECIFIED Qualifiers: Anemia type: iron deficiency (5) Atrial fibrillation Assessment/Plan: -controlled -continue heparin gtt until no further procedures are needed -restart oral anticoagulation pending tube removal Code(s): I48.91 - UNSPECIFIED ATRIAL FIBRILLATION Qualifiers: Atrial fibrillation type: paroxysmal Qualified Code(s): I48.0 - Paroxysmal atrial fibrillation (6) Back pain Assessment/Plan: -continue gabapentin and dilaudid -continue PT Code(s): M54.9 - DORSALGIA, UNSPECIFIED Qualifiers: Back pain location: low back pain Chronicity: acute Back pain laterality: bilateral Sciatica presence: without sciatica Qualified Code(s): M54.5 - Low back pain (7) Chest congestion Assessment/Plan -resolved -monitor Code(s): R09.89 - OTH SYMPTOMS AND SIGNS INVOLVING THE CIRC AND RESP SYSTEMS
--- NOTE | 2017-04-15 14:45 | PN ---
Progress Note, Physician History of Present Illness: Still with R buttock and R LE pain with wt bearing and sitting in chair No c/o fever/ chills No abdominal pain or L buttock/ LE pain - Current Medication List Current Medications: Active Medications Acetaminophen (Tylenol -) 650 mg PO Q4H PRN PRN Reason: PAIN Last Admin: 04/07/17 18:32 Dose: 650 mg Albuterol/Ipratropium (Duoneb -) 1 amp NEB QIDR [facility] Last Admin: 04/15/17 11:10 Dose: Not Given Ascorbic Acid (Vitamin C -) 500 mg PO DAILY [facility] Last Admin: 04/15/17 09:57 Dose: 500 mg Diltiazem HCl (Cardizem Cd -) 240 mg PO DAILY [facility] Last Admin: 04/15/17 10:00 Dose: 240 mg Diphenhydramine HCl (Benadryl -) 25 mg PO HS PRN PRN Reason: INSOMNIA Ferrous Sulfate (Feosol -) 325 mg PO DAILY [facility] Last Admin: 04/15/17 09:57 Dose: 325 mg Folic Acid (Folic Acid -) 1 mg PO DAILY [facility] Last Admin: 04/15/17 09:57 Dose: 1 mg Gabapentin (Neurontin -) 200 mg PO AM [facility] Last Admin: 04/15/17 06:55 Dose: 200 mg Gabapentin (Neurontin -) 400 mg PO HS [facility] Last Admin: 04/14/17 22:38 Dose: 400 mg Heparin Sodium (Porcine) (Heparin -) 1,000 unit IVPUSH PRN PRN PRN Reason: Heparin Last Admin: 04/14/17 11:27 Dose: 1,000 unit Heparin Sodium (Porcine) (Heparin -) 5,000 unit IVPUSH ONCE [facility] Last Admin: 04/15/17 11:26 Dose: Not Given Hydromorphone HCl (Dilaudid -) 2 mg PO Q4HWA PRN PRN Reason: PAIN Last Admin: 04/15/17 11:24 Dose: 2 mg Metronidazole (Flagyl 500mg Premixed Ivpb -) 100 mls @ 100 mls/hr IVPB Q8H-IV [facility] Last Admin: 04/15/17 09:57 Dose: 100 mls/hr Heparin Sodium/Dextrose (Heparin Infusion -) 500 mls @ 20 mls/hr IVPB TITR [facility] ; 1,000 UNITS/HR PRN Reason: Protocol Last Admin: 04/15/17 10:17 Dose: Not Given Ceftriaxone Sodium 2 gm/ (Dextrose) 100 mls @ 200 mls/hr IVPB DAILY [facility] Last Admin: 04/15/17 11:26 Dose: 200 mls/hr Lactobacillus Acidophilus (Bacid -) 1 tab PO DAILY [facility] Last Admin: 04/15/17 09:57 Dose: 1 tab Lorazepam (Ativan -) 0.5 mg PO HS PRN PRN Reason: INSOMNIA Magnesium Oxide (Mag-Ox -) 400 mg PO BID [facility] Last Admin: 04/15/17 09:58 Dose: 400 mg Melatonin (Melatonin) 3 mg PO HS [facility] Last Admin: 04/14/17 22:39 Dose: 3 mg Metoprolol Tartrate (Lopressor -) 50 mg PO BID [facility] Last Admin: 04/15/17 09:57 Dose: 50 mg Montelukast Sodium (Singulair -) 10 mg PO HS [facility] Last Admin: 04/14/17 22:39 Dose: 10 mg Nystatin (Mycostatin Cream -) 1 applic TP BID [facility] Last Admin: 04/15/17 10:04 Dose: 1 applic Pantoprazole Sodium (Protonix -) 20 mg PO DAILY [facility] Last Admin: 04/15/17 09:57 Dose: 20 mg Polyethylene Glycol (Miralax (For Daily Use) -) 17 gm PO DAILY [facility] Last Admin: 04/15/17 10:04 Dose: 17 gm Fluticasone/Salmeterol (Advair 100mcg/50mcg -) 1 puff IH BID [facility] Last Admin: 04/15/17 10:03 Dose: 1 puff - Objective Vital Signs: Vital Signs Temperature 98.3 F 04/15/17 09:00 Pulse Rate 75 04/15/17 10:34 Respiratory Rate 20 04/15/17 09:00 Blood Pressure 141/79 04/15/17 09:00 O2 Sat by Pulse Oximetry (%) 97 04/15/17 10:34 Constitutional: Yes: No Distress Eyes: Yes: Conjunctiva Clear Cardiovascular: Yes: Regular Rate and Rhythm, S1, S2 Respiratory: Yes: CTA Bilaterally Gastrointestinal: Yes: Normal Bowel Sounds, Soft, Other. No: Tenderness Edema: No Labs: CBC, BMP 04/15/17 06:40 04/15/17 06:40 INR, PTT INR 1.59 (0.82-1.09) H 04/07/17 09:15 Assessment/Plan S/P percutaneous GB drainage MSSA baceteremia/ vertebral osteo/ psoas abscess on tx S/P L psoas abscess drainage Biliary drainage c/s E coli x2, Bacteroides Psoas abscess drain c/s no growth Continue ceftriaxone 2gn IVPB daily/ Flagyl 500mg q8h- completing 8week course of treatment for MSSA vertebral osteo tomorrow CT reviewed with radiologist- repeat study today; if resolution of L psoas collection to remove drain today
[2017-04-15] MEDS: MELATONIN 1 MG TABLET PO SCH (22:16)
[2017-04-15] MEDS: GABAPENTIN 400 MG CAPSULE (FP) PO SCH (22:16)
[2017-04-15] MEDS: MONTELUKAST NA 10 MG TABLET PO SCH (22:17)
[2017-04-16] MEDS: ALBUTEROL SO4 2.5/IPRATROPIUM 0.5 INH SOL 3 ML VIAL.NEB. NEB SCH ×4 (00:15→18:21)
[2017-04-16] MEDS: METRONIDAZOLE 500 MG PREMIXED 100 ML IVPB SCH ×3 (01:46→17:29)
[2017-04-16] MEDS: HYDROmorphone HCL 2 MG TABLET PO PRN ×3 (02:22→18:31)
[2017-04-16] MEDS: GABAPENTIN 100 MG CAPSULE (FP) PO SCH (06:42)
[2017-04-16 07:50] LABS: BASOPHIL 0.7 % (0-2.0); EOSINOPHIL 5.5 % (0-4.5); MEAN PLT VOLUME 7.6 fl (7.5-11.1); PLATELET COUNT 453 K/MM3 (134-434); WHITE BLOOD COUNT 9.8 K/mm3 (4.0-10.0)
[2017-04-16 08:00] LABS: ANION GAP 7 (8-16); CALCIUM 8.6 mg/dL (8.5-10.1); CO2 30 mmol/L (21-32); CREATININE 0.6 mg/dL (0.7-1.3); GLUCOSE,RANDOM 93 mg/dL (74-106); MAGNESIUM 1.8 mg/dL (1.8-2.4); PHOSPHOROUS 4.2 mg/dL (2.5-4.9)
--- NOTE | 2017-04-16 09:53 | PN ---
Progress Note (short form) - Note Progress Note: c/o episode of LBP last night that has resolved continued right sciatic pain that is preventing him from walking reports left psoas drain removed yesterday Vital Signs Period Temp Pulse Resp BP Sys/Cat Pulse Ox Last 24 Hr 97.9 F-98.0 F 75-92 16-20 111-139/70-79 95-97 cor-rrr lungs clear abd soft,nt +biliary drain ext no edema CBC, BMP 04/16/17 06:00 04/16/17 06:00 Laboratory Tests 04/07/17 04/09/17 04/16/17 06:30 06:00 06:00 C-Reactive Protein 13.1 H D 14.1 H D 6.2 H D esr pending Microbiology 04/08/17 14:20 Abscess Gram Stain - Final 04/08/17 14:20 Abscess Body Fluid Culture - Final 04/08/17 14:20 Abscess Anaerobic Culture - Final NO ANAEROBES WERE ISOLATED 04/05/17 15:00 Blood - Picc Line Blood Culture - Final NO GROWTH AFTER 5 DAYS INCUBATION 04/05/17 15:00 Blood - Peripheral Venous Blood Culture - Final NO GROWTH AFTER 5 DAYS INCUBATION 04/07/17 11:40 Body Fluid - Other Gram Stain - Final 04/07/17 11:40 Body Fluid - Other Body Fluid Culture - Final Escherichia Coli Escherichia Coli#2 04/07/17 11:40 Body Fluid - Other Anaerobic Culture - Final Bacteroides Fragilis a/p s/p cholycystotomy tube for chlycystitis MSSA vertebral osteomyelitis with psoas abscesses s/p removal of drain crp trending down right sided hip/sciatic pain continue rocephin/flagyl patient requests that I contact Dr Davey Ibrahim [phone] today- he spoke with this doctor yesterday evening and is requesting that I speak with him regarding his care I have called the number as requested and left my cell number with the answering service
[2017-04-16] MEDS ORDERED: PT OWN MED DRAWER 7, Y5N ONE (10:00)
[2017-04-16] MEDS ORDERED: DEXTROSE 5%-WATER 100 ML IVPB ONE (10:00)
[2017-04-16] MEDS: FOLIC ACID 1 MG TABLET (FP) PO SCH (10:06)
[2017-04-16] MEDS: LACTOBACILLUS ACIDOPHILUS 1 EACH TAB (FP) PO SCH (10:06)
[2017-04-16] MEDS: FERROUS SO4 325 MG TABLET (FP) PO SCH (10:06)
[2017-04-16] MEDS: MAGNESIUM OXIDE 400 MG TABLET (FP) PO SCH ×2 (10:07→22:53)
[2017-04-16] MEDS: POLYETHYLENE GLYCOL 3350 119 GM BTL PO SCH (10:07)
[2017-04-16] MEDS: METOPROLOL TARTRATE 50 MG TABLET (FP) PO SCH ×2 (10:07→22:53)
[2017-04-16] MEDS: PANTOPRAZOLE 20 MG TABLET (FP) PO SCH (10:08)
[2017-04-16] MEDS: ASCORBIC ACID 500 MG TABLET (FP) PO SCH (10:08)
[2017-04-16] MEDS: CEFTRIAXONE 2 GM in DEXTROSE 5%-WATER 100 ML IVPB SCH (10:09)
[2017-04-16] MEDS: NYSTATIN 100,000 UNIT/GM TOPICAL CREAM 15 GM TUBE TP SCH ×2 (10:10→22:54)
[2017-04-16] MEDS: FLUTICASONE/SALMETEROL 100 MCG/50 MCG DISKUS IH SCH ×2 (10:10→22:55)
--- NOTE | 2017-04-16 10:57 | PN ---
Progress Note (short form) - Note Progress Note: Patient seen and examined. Chart reviewed at length. Patient known to me from previous admission. Currently sitting up in bed, alert, responsive and appropriate. Low back and right leg pain persist. Labs, radiologic studies and progress notes reviewed. Psoas drainage tube removed. Denies new chest discomfort palpitations or dyspnea Selected Entries 04/15/17 04/16/17 21:00 06:00 Temperature 98 F Respiratory 20 Rate Blood Pressure 139/79 O2 Sat by Pulse 95 Oximetry (%) Oxygen Delivery Room Air Method Laboratory Tests 04/13/17 04/16/17 04/16/17 06:00 06:00 06:00 WBC 9.8 Hgb 9.6 L Hct 29.0 L Plt Count 453 H Sodium 135 L Potassium 3.4 L Chloride 98 Carbon Dioxide 30 BUN 7 Creatinine 0.6 L D Random Glucose 93 Calcium 8.6 Phosphorus 4.2 D Magnesium 1.8 C-Reactive Protein Albumin 2.0 L 04/16/17 06:00 WBC Hgb Hct Plt Count Sodium Potassium Chloride Carbon Dioxide BUN Creatinine Random Glucose Calcium Phosphorus Magnesium C-Reactive Protein 6.2 H D Albumin Chest Clear No wheezing or rhonchi Cor RRR No new murmur Abd Soft No mass or tenderness RUQ biliary drainage tube Ext No new edema No phlebitis Neuro No new focal deficit Assessment and Plan Low Back Pain 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
[2017-04-16] MEDS: HEPARIN INFUSION - 500 ML IVPB SCH (11:59)
[2017-04-16] MEDS: HEPARIN NA (PORCINE) 5,000 UNITS/ML 1ML VIAL IVPUSH SCH (12:03)
[2017-04-16] MEDS: ACETAMINOPHEN 325 MG TABLET (FP) PO PRN (12:49)
[2017-04-16] MEDS: MONTELUKAST NA 10 MG TABLET PO SCH (22:54)
[2017-04-16] MEDS: MELATONIN 1 MG TABLET PO SCH (22:54)
[2017-04-16] MEDS: GABAPENTIN 400 MG CAPSULE (FP) PO SCH (22:54)
[2017-04-17] MEDS: ALBUTEROL SO4 2.5/IPRATROPIUM 0.5 INH SOL 3 ML VIAL.NEB. NEB SCH ×3 (00:05→11:03)
[2017-04-17] MEDS: HYDROmorphone HCL 2 MG TABLET PO PRN ×2 (02:26→09:43)
[2017-04-17] MEDS: METRONIDAZOLE 500 MG PREMIXED 100 ML IVPB SCH ×3 (02:29→17:33)
[2017-04-17] MEDS: HEPARIN INFUSION - 500 ML IVPB SCH ×2 (02:37→17:34)
[2017-04-17] MEDS: GABAPENTIN 100 MG CAPSULE (FP) PO SCH (06:28)
[2017-04-17 08:15] LABS: BASOPHIL 0.7 % (0-2.0); EOSINOPHIL 5.8 % (0-4.5); MCH 29.6 pg (25.7-33.7); MCHC 32.5 g/dl (32.0-35.9); MEAN CELL VOLUME 91.1 fl (80-96); MEAN PLT VOLUME 7.5 fl (7.5-11.1); NEUTROPHILS 72.3 % (42.8-82.8); PLATELET COUNT 423 K/MM3 (134-434); RDW 15.8 % (11.9-15.9); WHITE BLOOD COUNT 10.6 K/mm3 (4.0-10.0)
--- NOTE | 2017-04-17 08:29 | PN ---
Progress Note (short form) - Note Progress Note: Patient seen and examined. Chart reviewed. Patient known to me from previous admission. Currently sitting up in bed, alert, responsive and appropriate. Low back and right leg pain persist. Labs, radiologic studies and progress notes reviewed. Psoas drainage tube removed. Denies new chest discomfort palpitations or dyspnea. Would like to be able to return to [facility]. If no further interventions are anticipated, would consider stopping iv heparin and restarting Eliquis Selected Entries 04/17/17 06:00 Temperature 98.6 F Pulse Rate 81 Respiratory 20 Rate Blood Pressure 147/93 Today's labs pending Chest Clear No wheezing Mild bibasilar rhonchi Cor RRR No new murmur Abd Soft No mass or tenderness RUQ biliary drainage tube Ext No new edema No phlebitis Neuro No new focal deficit Assessment and Plan Low Back Pain L4-5 discitis/vertebral osteomyelitis MSSA On iv antibiotics Psoas muscle abscess Improved post drainage CT noted Drainage tube removed Right sciatica Chronic Discuss issue of planned therapies and/or interventions Anemia 9.6/29.0 Labs pending Hypokalemia 3.4 Monitor Labs pending AFib On iv heparin Consider switch to Eliquis if no further invasive therapies anticipated Hypoalbuminemia Multifactorial related to acute/chronic disease ass well as nutritional factors Cholecystitis with cholelithiasis post cholecystotomy drainage tube AAA/TAA Stable H/O diastolic CHF Stable COPD Stable PFO seen on ECHO NO Rx required H/O Toxic/Metabolic encephalopathy Resolved Continue current Rx
[2017-04-17 08:56] LABS: ALK PHOS 89 U/L (45-117); ANION GAP 9 (8-16); BILIRUBIN,TOTAL 0.3 mg/dL (0.2-1.0); CALCIUM 8.7 mg/dL (8.5-10.1); CO2 28 mmol/L (21-32); CREATININE 0.5 mg/dL (0.7-1.3); GLUCOSE,RANDOM 91 mg/dL (74-106); MAGNESIUM 2.1 mg/dL (1.8-2.4); SGOT/AST 12 U/L (15-37); SGPT/ALT 7 U/L (12-78); TOT PROT 6.9 g/dl (6.4-8.2)
[2017-04-17] MEDS ORDERED: PT OWN MED DRAWER 7, Y5N ONE ×2 (09:17→17:23)
[2017-04-17] MEDS ORDERED: DEXTROSE 5%-WATER 100 ML IVPB ONE (09:18)
[2017-04-17] MEDS: LACTOBACILLUS ACIDOPHILUS 1 EACH TAB (FP) PO SCH (09:35)
[2017-04-17] MEDS: POTASSIUM CHLORIDE TABS 20 MEQ TABLET.ER (FP) PO SCH (09:36)
[2017-04-17] MEDS: FERROUS SO4 325 MG TABLET (FP) PO SCH (09:36)
[2017-04-17] MEDS: FOLIC ACID 1 MG TABLET (FP) PO SCH (09:36)
[2017-04-17] MEDS: METOPROLOL TARTRATE 50 MG TABLET (FP) PO SCH ×2 (09:37→22:07)
[2017-04-17] MEDS: MAGNESIUM OXIDE 400 MG TABLET (FP) PO SCH ×2 (09:37→22:12)
[2017-04-17] MEDS: POLYETHYLENE GLYCOL 3350 119 GM BTL PO SCH (09:38)
[2017-04-17] MEDS: ASCORBIC ACID 500 MG TABLET (FP) PO SCH (09:40)
[2017-04-17] MEDS: PANTOPRAZOLE 20 MG TABLET (FP) PO SCH (09:40)
[2017-04-17] MEDS: CEFTRIAXONE 2 GM in DEXTROSE 5%-WATER 100 ML IVPB SCH (09:41)
[2017-04-17] MEDS: NYSTATIN 100,000 UNIT/GM TOPICAL CREAM 15 GM TUBE TP SCH ×2 (09:42→22:16)
[2017-04-17] MEDS: FLUTICASONE/SALMETEROL 100 MCG/50 MCG DISKUS IH SCH ×2 (09:42→22:13)
--- NOTE | 2017-04-17 09:42 | PN ---
Progress Note (short form) - Note Progress Note: continued right sciatic pain that is preventing him from walking right hip pain is new and began at [facility] Vital Signs Period Temp Pulse Resp BP Sys/Cat Pulse Ox Last 24 Hr 98 F-98.8 F 79-106 18-24 122-147/65-93 93-93 cor-rrr lungs clear abd soft,nt +biliary drain ext no edema picc line right arm no erythema CBC, BMP 04/17/17 06:20 04/17/17 06:20 Microbiology 04/08/17 14:20 Abscess Gram Stain - Final 04/08/17 14:20 Abscess Body Fluid Culture - Final 04/08/17 14:20 Abscess Anaerobic Culture - Final NO ANAEROBES WERE ISOLATED 04/05/17 15:00 Blood - Picc Line Blood Culture - Final NO GROWTH AFTER 5 DAYS INCUBATION 04/05/17 15:00 Blood - Peripheral Venous Blood Culture - Final NO GROWTH AFTER 5 DAYS INCUBATION 04/07/17 11:40 Body Fluid - Other Gram Stain - Final 04/07/17 11:40 Body Fluid - Other Body Fluid Culture - Final Escherichia Coli Escherichia Coli#2 04/07/17 11:40 Body Fluid - Other Anaerobic Culture - Final Bacteroides Fragilis a/p s/p cholycystotomy tube for cholycystitis MSSA vertebral osteomyelitis with psoas abscesses s/p removal of drain crp trending down right sided hip/sciatic pain continue rocephin/flagyl I spoke with Dr Ibrahim at patients request yesterday- regarding details of patients medical care (patient had faxed him all his records)- we spoke at length about his care- continue iv antibiotics d/w patient and family at bedside
--- NOTE | 2017-04-17 12:02 | PN ---
Progress Note (short form) - Note Progress Note: NEUROSURGERY On Ceftriaxone and Flagyl SCiatica going to R buttock and lat thigh when sitting and standing PE: AF, VSS HEENT- NC/AT; Neck- supple; Cor- RR; Lungs- no wheezes; Abd- obese, benign; Ext - No sign of DVT CN- intact; Motor- 5/5 except L IP 4, L Quad/EHL/TA/gastroc/inv/ev 4-; Sensation - diminished PP/LT L L4-5 Blood culture negative to date Gallbladder- E Coli and Bacteroides Psoas fluid collection- negative WBC 10.6 Chronic L4-5 spondylolisthesis with stenosis and mechanical LBP and L L4-5 radiculopathy, chornic on L and some new symptoms on R MSSA bacteremia with L4-5 discitis/osteomyelitis s/p 8 weeks of iv abx; with MRI evidence of delayed sterile psoas fluid collection - drained per IR (now drain out) Continuing drainge of gallbladder DVT prophylaxis Care d/w ID Short pulse or oral steroid to break the pain cycle, as sciatica is his major impediment to recovery and rehab at this time
[2017-04-17] MEDS: methylPREDNISolone 4 MG TABLET PO SCH ×3 (14:28→22:10)
[2017-04-17] MEDS: HEPARIN NA (PORCINE) 5,000 UNITS/ML 1ML VIAL IVPUSH SCH (18:22)
[2017-04-17] MEDS: MONTELUKAST NA 10 MG TABLET PO SCH (22:08)
[2017-04-17] MEDS: GABAPENTIN 400 MG CAPSULE (FP) PO SCH (22:08)
[2017-04-17] MEDS: MELATONIN 1 MG TABLET PO SCH (22:09)
[2017-04-18] MEDS: METRONIDAZOLE 500 MG PREMIXED 100 ML IVPB SCH ×2 (01:20→09:23)
[2017-04-18] MEDS: GABAPENTIN 100 MG CAPSULE (FP) PO SCH (06:38)
[2017-04-18 08:00] LABS: BASOPHIL 0.4 % (0-2.0); MCH 29.9 pg (25.7-33.7); MEAN CELL VOLUME 90.4 fl (80-96); MEAN PLT VOLUME 7.4 fl (7.5-11.1); NEUTROPHILS 82.6 % (42.8-82.8); PLATELET COUNT 456 K/MM3 (134-434); RDW 15.6 % (11.9-15.9); WHITE BLOOD COUNT 9.5 K/mm3 (4.0-10.0)
--- NOTE | 2017-04-18 08:12 | PN ---
Progress Note (short form) - Note Progress Note: NEUROSURGERY Still with some R thigh shooting pain PE: AF, VSS HEENT- NC/AT; Neck- supple; Cor- RR; Lungs- no wheezes; Abd- obese, benign; Ext - No sign of DVT CN- intact; Motor- 5/5 except L IP 4, L Quad/EHL/TA/gastroc/inv/ev 4-; Sensation - diminished PP/LT L L4-5 (chronic L LE findings) Blood culture negative Gallbladder- E Coli and Bacteroides Psoas fluid collection- negative Labs pending Chronic L4-5 spondylolisthesis with stenosis and mechanical LBP and L L4-5 radiculopathy, chornic on L and some new symptoms on R MSSA bacteremia with L4-5 discitis/osteomyelitis s/p 8 weeks of iv abx Sterile psoas fluid collection - drained per IR (now drain out) Continuing drainage of gallbladder per IR and medical/GI team DVT prophylaxis Being given a short pulse of oral steroid till Tuesday
[2017-04-18] MEDS: ACETAMINOPHEN 325 MG TABLET (FP) PO PRN ×2 (08:27→17:34)
[2017-04-18 08:54] LABS: ALBUMIN 2.2 g/dl (3.4-5.0); ALK PHOS 89 U/L (45-117); ANION GAP 7 (8-16); BILIRUBIN,TOTAL 0.2 mg/dL (0.2-1.0); CALCIUM 9.2 mg/dL (8.5-10.1); CO2 28 mmol/L (21-32); CREATININE 0.5 mg/dL (0.7-1.3); GLUCOSE,RANDOM 110 mg/dL (74-106); SGOT/AST 10 U/L (15-37); SGPT/ALT < 6 U/L (12-78); TOT PROT 7.5 g/dl (6.4-8.2)
[2017-04-18] MEDS ORDERED: PT OWN MED DRAWER 7, Y5N ONE ×7 (09:20→22:36)
[2017-04-18] MEDS ORDERED: DEXTROSE 5%-WATER 100 ML IVPB ONE (09:20)
[2017-04-18] MEDS: FLUTICASONE/SALMETEROL 100 MCG/50 MCG DISKUS IH SCH ×2 (09:23→22:12)
[2017-04-18] MEDS: CEFTRIAXONE 2 GM in DEXTROSE 5%-WATER 100 ML IVPB SCH (09:23)
[2017-04-18] MEDS: PANTOPRAZOLE 20 MG TABLET (FP) PO SCH (09:24)
[2017-04-18] MEDS: FOLIC ACID 1 MG TABLET (FP) PO SCH (09:24)
[2017-04-18] MEDS: ASCORBIC ACID 500 MG TABLET (FP) PO SCH (09:24)
[2017-04-18] MEDS: FERROUS SO4 325 MG TABLET (FP) PO SCH (09:24)
[2017-04-18] MEDS: METOPROLOL TARTRATE 50 MG TABLET (FP) PO SCH ×2 (09:24→22:10)
[2017-04-18] MEDS: MAGNESIUM OXIDE 400 MG TABLET (FP) PO SCH ×2 (09:24→22:10)
[2017-04-18] MEDS: methylPREDNISolone 4 MG TABLET PO SCH ×4 (09:24→22:14)
[2017-04-18] MEDS: LACTOBACILLUS ACIDOPHILUS 1 EACH TAB (FP) PO SCH (09:24)
[2017-04-18] MEDS: NYSTATIN 100,000 UNIT/GM TOPICAL CREAM 15 GM TUBE TP SCH ×2 (09:25→22:19)
[2017-04-18] MEDS: POLYETHYLENE GLYCOL 3350 119 GM BTL PO SCH (09:28)
[2017-04-18] MEDS: POTASSIUM CHLORIDE TABS 20 MEQ TABLET.ER (FP) PO SCH (09:28)
[2017-04-18] MEDS: HEPARIN INFUSION - 500 ML IVPB SCH (10:15)
[2017-04-18] MEDS: HEPARIN NA (PORCINE) 5,000 UNITS/ML 1ML VIAL IVPUSH SCH (10:15)
--- NOTE | 2017-04-18 14:06 | PN ---
Progress Note, Physician Chief Complaint: Mr Santacruz says sciatica is better, will walk later today. No cp, sob, n/v. - Current Medication List Current Medications: Active Medications Acetaminophen (Tylenol -) 650 mg PO Q4H PRN PRN Reason: PAIN Last Admin: 04/18/17 08:27 Dose: 650 mg Ascorbic Acid (Vitamin C -) 500 mg PO DAILY [facility] Last Admin: 04/18/17 09:24 Dose: 500 mg Diltiazem HCl (Cardizem Cd -) 240 mg PO DAILY [facility] Last Admin: 04/18/17 09:24 Dose: 240 mg Diphenhydramine HCl (Benadryl -) 25 mg PO HS PRN PRN Reason: INSOMNIA Ferrous Sulfate (Feosol -) 325 mg PO DAILY [facility] Last Admin: 04/18/17 09:24 Dose: 325 mg Folic Acid (Folic Acid -) 1 mg PO DAILY [facility] Last Admin: 04/18/17 09:24 Dose: 1 mg Gabapentin (Neurontin -) 200 mg PO AM [facility] Last Admin: 04/18/17 06:38 Dose: 200 mg Gabapentin (Neurontin -) 400 mg PO HS [facility] Last Admin: 04/17/17 22:08 Dose: 400 mg Heparin Sodium (Porcine) (Heparin -) 1,000 unit IVPUSH PRN PRN PRN Reason: Heparin Last Admin: 04/14/17 11:27 Dose: 1,000 unit Heparin Sodium (Porcine) (Heparin -) 5,000 unit IVPUSH ONCE [facility] Last Admin: 04/18/17 10:15 Dose: Not Given Hydromorphone HCl (Dilaudid -) 2 mg PO Q4H PRN PRN Reason: PAIN Metronidazole (Flagyl 500mg Premixed Ivpb -) 100 mls @ 100 mls/hr IVPB Q8H-IV [facility] Last Admin: 04/18/17 09:23 Dose: 100 mls/hr Heparin Sodium/Dextrose (Heparin Infusion -) 500 mls @ 20 mls/hr IVPB TITR [facility] ; 1,000 UNITS/HR PRN Reason: Protocol Last Admin: 04/18/17 10:15 Dose: 32 mls/hr Ceftriaxone Sodium 2 gm/ (Dextrose) 100 mls @ 200 mls/hr IVPB DAILY [facility] Last Admin: 04/18/17 09:23 Dose: 200 mls/hr Lactobacillus Acidophilus (Bacid -) 1 tab PO DAILY [facility] Last Admin: 04/18/17 09:24 Dose: 1 tab Magnesium Oxide (Mag-Ox -) 400 mg PO BID [facility] Last Admin: 04/18/17 09:24 Dose: 400 mg Melatonin (Melatonin) 3 mg PO HS [facility] Last Admin: 04/17/17 22:09 Dose: 3 mg Methylprednisolone (Medrol -) 4 mg PO QID [facility] Stop: 04/20/17 10:01 Last Admin: 04/18/17 13:43 Dose: 4 mg Metoprolol Tartrate (Lopressor -) 50 mg PO BID [facility] Last Admin: 04/18/17 09:24 Dose: 50 mg Montelukast Sodium (Singulair -) 10 mg PO HS [facility] Last Admin: 04/17/17 22:08 Dose: 10 mg Nystatin (Mycostatin Cream -) 1 applic TP BID [facility] Last Admin: 04/18/17 09:25 Dose: 1 applic Pantoprazole Sodium (Protonix -) 20 mg PO DAILY [facility] Last Admin: 04/18/17 09:24 Dose: 20 mg Polyethylene Glycol (Miralax (For Daily Use) -) 17 gm PO DAILY [facility] Last Admin: 04/18/17 09:28 Dose: 17 gm Potassium Chloride (K-Dur -) 20 meq PO DAILY [facility] Last Admin: 04/18/17 09:28 Dose: 20 meq Fluticasone/Salmeterol (Advair 100mcg/50mcg -) 1 puff IH BID [facility] Last Admin: 04/18/17 09:23 Dose: 1 puff - Objective Vital Signs: Vital Signs Temperature 98.1 F 04/18/17 10:00 Pulse Rate 86 04/18/17 10:00 Respiratory Rate 18 04/18/17 10:00 Blood Pressure 104/80 04/18/17 10:00 O2 Sat by Pulse Oximetry (%) 98 04/18/17 09:00 Constitutional: Yes: Well Nourished, No Distress, Calm Cardiovascular: Yes: Pulse Irregular. No: Tachycardia, Gallop, Murmur, Rub Respiratory: Yes: Regular, CTA Bilaterally. No: Rales, Rhonchi, Wheezes Gastrointestinal: Yes: Normal Bowel Sounds, Soft. No: Distention, Tenderness Extremities: Yes: WNL Edema: No Labs: CBC, BMP 04/18/17 07:00 04/18/17 07:36 INR, PTT INR 1.59 (0.82-1.09) H 04/07/17 09:15 Assessment/Plan (1) Cholecystitis with cholelithiasis Assessment/Plan: -no surgery this admission -continue drain -antibiotics per ID Code(s): K80.10 - CALCULUS OF GALLBLADDER W CHRONIC CHOLECYST W/O OBSTRUCTION (2) Iliopsoas abscess Assessment/Plan: s/p removal of drain Code(s): K68.12 - PSOAS MUSCLE ABSCESS (3) Epidural abscess Assessment/Plan: -resolving -neurosurgery following Code(s): G06.2 - EXTRADURAL AND SUBDURAL ABSCESS, UNSPECIFIED (4) Anemia Assessment/Plan: -s/p transfusion -monitor Code(s): D64.9 - ANEMIA, UNSPECIFIED Qualifiers: Anemia type: iron deficiency (5) Atrial fibrillation Assessment/Plan: -controlled -restart eliquis tonight Code(s): I48.91 - UNSPECIFIED ATRIAL FIBRILLATION Qualifiers: Atrial fibrillation type: paroxysmal Qualified Code(s): I48.0 - Paroxysmal atrial fibrillation (6) Back pain Assessment/Plan: -continue gabapentin and dilaudid -continue PT -on decadron per neurosurgery Code(s): M54.9 - DORSALGIA, UNSPECIFIED Qualifiers: Back pain location: low back pain Chronicity: acute Back pain laterality: bilateral Sciatica presence: without sciatica Qualified Code(s): M54.5 - Low back pain (7) Chest congestion Assessment/Plan -resolved -monitor Code(s): R09.89 - OTH SYMPTOMS AND SIGNS INVOLVING THE CIRC AND RESP SYSTEMS
[2017-04-18] MEDS ORDERED: guaiFENesin 200 MG/10 ML 10 ML UNIT-DOSE CUPS PO PRN (14:24)
--- NOTE | 2017-04-18 14:24 | PN ---
Progress Note, Physician History of Present Illness: Still with R buttock pain Received dose of steroids today To attempt wt bearing and ambulation No fever/ chills Completed course of IV antibiotics for MSSA vertebral osteo - Current Medication List Current Medications: Active Medications Acetaminophen (Tylenol -) 650 mg PO Q4H PRN PRN Reason: PAIN Last Admin: 04/18/17 08:27 Dose: 650 mg Ascorbic Acid (Vitamin C -) 500 mg PO DAILY [facility] Last Admin: 04/18/17 09:24 Dose: 500 mg Dicloxacillin Sodium (Dynapen -) 500 mg PO Q12H [facility] Diltiazem HCl (Cardizem Cd -) 240 mg PO DAILY [facility] Last Admin: 04/18/17 09:24 Dose: 240 mg Diphenhydramine HCl (Benadryl -) 25 mg PO HS PRN PRN Reason: INSOMNIA Ferrous Sulfate (Feosol -) 325 mg PO DAILY [facility] Last Admin: 04/18/17 09:24 Dose: 325 mg Folic Acid (Folic Acid -) 1 mg PO DAILY [facility] Last Admin: 04/18/17 09:24 Dose: 1 mg Gabapentin (Neurontin -) 200 mg PO AM [facility] Last Admin: 04/18/17 06:38 Dose: 200 mg Gabapentin (Neurontin -) 400 mg PO HS [facility] Last Admin: 04/17/17 22:08 Dose: 400 mg Heparin Sodium (Porcine) (Heparin -) 1,000 unit IVPUSH PRN PRN PRN Reason: Heparin Last Admin: 04/14/17 11:27 Dose: 1,000 unit Heparin Sodium (Porcine) (Heparin -) 5,000 unit IVPUSH ONCE [facility] Last Admin: 04/18/17 10:15 Dose: Not Given Hydromorphone HCl (Dilaudid -) 2 mg PO Q4H PRN PRN Reason: PAIN Heparin Sodium/Dextrose (Heparin Infusion -) 500 mls @ 20 mls/hr IVPB TITR DOMITILA ; 1,000 UNITS/HR PRN Reason: Protocol Last Admin: 04/18/17 10:15 Dose: 32 mls/hr Lactobacillus Acidophilus (Bacid -) 1 tab PO DAILY [facility] Last Admin: 04/18/17 09:24 Dose: 1 tab Magnesium Oxide (Mag-Ox -) 400 mg PO BID [facility] Last Admin: 04/18/17 09:24 Dose: 400 mg Melatonin (Melatonin) 3 mg PO HS [facility] Last Admin: 04/17/17 22:09 Dose: 3 mg Methylprednisolone (Medrol -) 4 mg PO QID [facility] Stop: 04/20/17 10:01 Last Admin: 04/18/17 13:43 Dose: 4 mg Metoprolol Tartrate (Lopressor -) 50 mg PO BID [facility] Last Admin: 04/18/17 09:24 Dose: 50 mg Montelukast Sodium (Singulair -) 10 mg PO HS [facility] Last Admin: 04/17/17 22:08 Dose: 10 mg Nystatin (Mycostatin Cream -) 1 applic TP BID [facility] Last Admin: 04/18/17 09:25 Dose: 1 applic Pantoprazole Sodium (Protonix -) 20 mg PO DAILY [facility] Last Admin: 04/18/17 09:24 Dose: 20 mg Polyethylene Glycol (Miralax (For Daily Use) -) 17 gm PO DAILY [facility] Last Admin: 04/18/17 09:28 Dose: 17 gm Potassium Chloride (K-Dur -) 20 meq PO DAILY [facility] Last Admin: 04/18/17 09:28 Dose: 20 meq Fluticasone/Salmeterol (Advair 100mcg/50mcg -) 1 puff IH BID [facility] Last Admin: 04/18/17 09:23 Dose: 1 puff - Objective Vital Signs: Vital Signs Temperature 98.1 F 04/18/17 10:00 Pulse Rate 86 04/18/17 10:00 Respiratory Rate 18 04/18/17 10:00 Blood Pressure 104/80 04/18/17 10:00 O2 Sat by Pulse Oximetry (%) 98 04/18/17 09:00 Constitutional: Yes: No Distress Eyes: Yes: Conjunctiva Clear Cardiovascular: Yes: Regular Rate and Rhythm, S1, S2 Respiratory: Yes: Diminished Gastrointestinal: Yes: Normal Bowel Sounds, Soft, Other (+ Bile in RUQ drain). No: Tenderness Edema: No Labs: CBC, BMP 04/18/17 07:00 04/18/17 07:36 INR, PTT INR 1.59 (0.82-1.09) H 04/07/17 09:15 Assessment/Plan S/P percutaneous GB drainage MSSA baceteremia/ vertebral osteo/ psoas abscess - completed 8w course of tx S/P L psoas abscess drainage Discontinue ceftriaxone 2gn IVPB daily/ Flagyl 500mg q8h- Substitute dicloxacillin 500mg po q12h for several weeks Monitor EER/CRP Remove PICC
[2017-04-18] MEDS: DICLOXACILLIN SODIUM 250 MG CAPSULE PO SCH ×2 (17:24→22:13)
[2017-04-18] MEDS: APIXABAN 5 MG TABLET PO SCH (22:10)
[2017-04-18] MEDS: MONTELUKAST NA 10 MG TABLET PO SCH (22:10)
[2017-04-18] MEDS: GABAPENTIN 400 MG CAPSULE (FP) PO SCH (22:10)
[2017-04-18] MEDS: MELATONIN 1 MG TABLET PO SCH (22:15)
[2017-04-19] MEDS: GABAPENTIN 100 MG CAPSULE (FP) PO SCH (06:14)
[2017-04-19 08:13] LABS: BASOPHIL 0.4 % (0-2.0); EOSINOPHIL 0.1 % (0-4.5); MCH 29.9 pg (25.7-33.7); MCHC 32.8 g/dl (32.0-35.9); MEAN CELL VOLUME 91.3 fl (80-96); MEAN PLT VOLUME 7.3 fl (7.5-11.1); NEUTROPHILS 80.9 % (42.8-82.8); PLATELET COUNT 434 K/MM3 (134-434)
--- NOTE | 2017-04-19 08:27 | PN ---
Progress Note (short form) - Note Progress Note: NEUROSURGERY Minimal R thigh shooting pain has not taken painkillers x 24 hours PE: Tmax 98.3, AF, VSS HEENT- NC/AT; Neck- supple; Cor- RR; Lungs- no wheezes; Abd- obese, benign; Ext - No sign of DVT CN- intact; Motor- 5/5 except L IP 4, L Quad/EHL/TA/gastroc/inv/ev 4-; Sensation - diminished PP/LT L L4-5 Blood culture negative Gallbladder- E Coli and Bacteroides Psoas fluid collection- negative Chronic L4-5 spondylolisthesis with stenosis and mechanical LBP and L L4-5 radiculopathy, chronic on L and with newer symptoms on R MSSA bacteremia with L4-5 discitis/osteomyelitis adn completed 8 weeks of iv abx Sterile L psoas fluid collection - drained Continuing drainage of gallbladder per IR and medical/GI team DVT prophylaxis Being given a short pulse of oral steroid till Tuesday Will try to get up today
[2017-04-19 08:39] LABS: ANION GAP 7 (8-16); CALCIUM 9.7 mg/dL (8.5-10.1); CO2 28 mmol/L (21-32); CREATININE 0.6 mg/dL (0.7-1.3); GLUCOSE,RANDOM 97 mg/dL (74-106); MAGNESIUM 2.2 mg/dL (1.8-2.4); PHOSPHOROUS 3.5 mg/dL (2.5-4.9)
[2017-04-19] MEDS: HYDROmorphone HCL 2 MG TABLET PO PRN (10:36)
[2017-04-19] MEDS: PANTOPRAZOLE 20 MG TABLET (FP) PO SCH (10:39)
[2017-04-19] MEDS: MAGNESIUM OXIDE 400 MG TABLET (FP) PO SCH ×2 (10:39→21:24)
[2017-04-19] MEDS: METOPROLOL TARTRATE 50 MG TABLET (FP) PO SCH ×2 (10:39→21:24)
[2017-04-19] MEDS: ASCORBIC ACID 500 MG TABLET (FP) PO SCH (10:39)
[2017-04-19] MEDS: POTASSIUM CHLORIDE TABS 20 MEQ TABLET.ER (FP) PO SCH (10:39)
[2017-04-19] MEDS: FOLIC ACID 1 MG TABLET (FP) PO SCH (10:39)
[2017-04-19] MEDS: LACTOBACILLUS ACIDOPHILUS 1 EACH TAB (FP) PO SCH (10:39)
[2017-04-19] MEDS: FERROUS SO4 325 MG TABLET (FP) PO SCH (10:39)
[2017-04-19] MEDS: APIXABAN 5 MG TABLET PO SCH ×2 (10:40→21:24)
[2017-04-19] MEDS ORDERED: PT OWN MED DRAWER 7, Y5N ONE ×4 (10:53→21:20)
[2017-04-19] MEDS: FLUTICASONE/SALMETEROL 100 MCG/50 MCG DISKUS IH SCH ×2 (10:55→21:27)
[2017-04-19] MEDS: DICLOXACILLIN SODIUM 250 MG CAPSULE PO SCH ×2 (10:56→21:25)
[2017-04-19] MEDS: methylPREDNISolone 4 MG TABLET PO SCH ×4 (10:57→21:27)
[2017-04-19] MEDS: NYSTATIN 100,000 UNIT/GM TOPICAL CREAM 15 GM TUBE TP SCH ×2 (10:58→21:23)
[2017-04-19] MEDS: POLYETHYLENE GLYCOL 3350 119 GM BTL PO SCH (10:58)
--- NOTE | 2017-04-19 11:13 | PN ---
Progress Note, Physician Chief Complaint: Awake, alert No pain at rest in bed Was unable to sit in chair because of R buttock and LE pain No fever/ chills Tolerating oral antibiotic - Current Medication List Current Medications: Active Medications Acetaminophen (Tylenol -) 650 mg PO Q4H PRN PRN Reason: PAIN Last Admin: 04/18/17 17:34 Dose: 650 mg Apixaban (Eliquis -) 5 mg PO BID [facility] Last Admin: 04/19/17 10:40 Dose: 5 mg Ascorbic Acid (Vitamin C -) 500 mg PO DAILY [facility] Last Admin: 04/19/17 10:39 Dose: 500 mg Dicloxacillin Sodium (Dynapen -) 500 mg PO BID [facility] Last Admin: 04/19/17 10:56 Dose: 500 mg Diltiazem HCl (Cardizem Cd -) 240 mg PO DAILY [facility] Last Admin: 04/18/17 09:24 Dose: 240 mg Diphenhydramine HCl (Benadryl -) 25 mg PO HS PRN PRN Reason: INSOMNIA Ferrous Sulfate (Feosol -) 325 mg PO DAILY [facility] Last Admin: 04/19/17 10:39 Dose: 325 mg Folic Acid (Folic Acid -) 1 mg PO DAILY [facility] Last Admin: 04/19/17 10:39 Dose: 1 mg Gabapentin (Neurontin -) 200 mg PO AM [facility] Last Admin: 04/19/17 06:14 Dose: 200 mg Gabapentin (Neurontin -) 400 mg PO HS [facility] Last Admin: 04/18/17 22:10 Dose: 400 mg Guaifenesin (Robitussin -) 10 ml PO Q4H PRN PRN Reason: COUGH Hydromorphone HCl (Dilaudid -) 2 mg PO Q4H PRN PRN Reason: PAIN Last Admin: 04/19/17 10:36 Dose: 2 mg Lactobacillus Acidophilus (Bacid -) 1 tab PO DAILY [facility] Last Admin: 04/19/17 10:39 Dose: 1 tab Magnesium Oxide (Mag-Ox -) 400 mg PO BID [facility] Last Admin: 04/19/17 10:39 Dose: 400 mg Melatonin (Melatonin) 3 mg PO HS [facility] Last Admin: 04/18/17 22:15 Dose: 3 mg Methylprednisolone (Medrol -) 4 mg PO QID [facility] Stop: 04/20/17 10:01 Last Admin: 04/19/17 10:57 Dose: 4 mg Metoprolol Tartrate (Lopressor -) 50 mg PO BID [facility] Last Admin: 04/19/17 10:39 Dose: 50 mg Montelukast Sodium (Singulair -) 10 mg PO HS [facility] Last Admin: 04/18/17 22:10 Dose: 10 mg Nystatin (Mycostatin Cream -) 1 applic TP BID [facility] Last Admin: 04/19/17 10:58 Dose: 1 applic Pantoprazole Sodium (Protonix -) 20 mg PO DAILY [facility] Last Admin: 04/19/17 10:39 Dose: 20 mg Polyethylene Glycol (Miralax (For Daily Use) -) 17 gm PO DAILY [facility] Last Admin: 04/19/17 10:58 Dose: Not Given Potassium Chloride (K-Dur -) 20 meq PO DAILY [facility] Last Admin: 04/19/17 10:39 Dose: 20 meq Fluticasone/Salmeterol (Advair 100mcg/50mcg -) 1 puff IH BID [facility] Last Admin: 04/19/17 10:55 Dose: 1 puff - Objective Vital Signs: Vital Signs Temperature 97.7 F 04/19/17 07:14 Pulse Rate 84 04/19/17 07:14 Respiratory Rate 20 04/19/17 07:14 Blood Pressure 150/88 04/19/17 07:14 O2 Sat by Pulse Oximetry (%) 98 04/18/17 21:00 Constitutional: Yes: No Distress Eyes: Yes: Conjunctiva Clear Cardiovascular: Yes: Regular Rate and Rhythm, S1, S2 Respiratory: Yes: CTA Bilaterally Gastrointestinal: Yes: Normal Bowel Sounds, Soft, Other (clear bile in RUQ drain ). No: Tenderness Edema: No Labs: CBC, BMP 04/19/17 07:30 04/19/17 07:30 INR, PTT INR 1.59 (0.82-1.09) H 04/07/17 09:15 Assessment/Plan S/P percutaneous GB drainage MSSA baceteremia/ vertebral osteo/ psoas abscess - completed 8w course of tx S/P L psoas abscess drainage Continue dicloxacillin 500mg po q12h for several weeks Monitor ESR/CRP on therapy PT
--- NOTE | 2017-04-19 12:00 | PN ---
Progress Note, Physician Chief Complaint: Mr Santacruz complains of sciatica pain, concerned it is not improving. Denies cp, sob, n/v. - Current Medication List Current Medications: Active Medications Acetaminophen (Tylenol -) 650 mg PO Q4H PRN PRN Reason: PAIN Last Admin: 04/18/17 17:34 Dose: 650 mg Apixaban (Eliquis -) 5 mg PO BID [facility] Last Admin: 04/19/17 10:40 Dose: 5 mg Ascorbic Acid (Vitamin C -) 500 mg PO DAILY [facility] Last Admin: 04/19/17 10:39 Dose: 500 mg Dicloxacillin Sodium (Dynapen -) 500 mg PO BID [facility] Last Admin: 04/19/17 10:56 Dose: 500 mg Diltiazem HCl (Cardizem Cd -) 240 mg PO DAILY [facility] Last Admin: 04/18/17 09:24 Dose: 240 mg Diphenhydramine HCl (Benadryl -) 25 mg PO HS PRN PRN Reason: INSOMNIA Ferrous Sulfate (Feosol -) 325 mg PO DAILY [facility] Last Admin: 04/19/17 10:39 Dose: 325 mg Folic Acid (Folic Acid -) 1 mg PO DAILY [facility] Last Admin: 04/19/17 10:39 Dose: 1 mg Gabapentin (Neurontin -) 200 mg PO AM [facility] Last Admin: 04/19/17 06:14 Dose: 200 mg Gabapentin (Neurontin -) 400 mg PO HS [facility] Last Admin: 04/18/17 22:10 Dose: 400 mg Guaifenesin (Robitussin -) 10 ml PO Q4H PRN PRN Reason: COUGH Hydromorphone HCl (Dilaudid -) 2 mg PO Q4H PRN PRN Reason: PAIN Last Admin: 04/19/17 10:36 Dose: 2 mg Lactobacillus Acidophilus (Bacid -) 1 tab PO DAILY [facility] Last Admin: 04/19/17 10:39 Dose: 1 tab Magnesium Oxide (Mag-Ox -) 400 mg PO BID [facility] Last Admin: 04/19/17 10:39 Dose: 400 mg Melatonin (Melatonin) 3 mg PO HS [facility] Last Admin: 04/18/17 22:15 Dose: 3 mg Methylprednisolone (Medrol -) 4 mg PO QID [facility] Stop: 04/20/17 10:01 Last Admin: 04/19/17 10:57 Dose: 4 mg Metoprolol Tartrate (Lopressor -) 50 mg PO BID [facility] Last Admin: 04/19/17 10:39 Dose: 50 mg Montelukast Sodium (Singulair -) 10 mg PO HS [facility] Last Admin: 04/18/17 22:10 Dose: 10 mg Nystatin (Mycostatin Cream -) 1 applic TP BID [facility] Last Admin: 04/19/17 10:58 Dose: 1 applic Pantoprazole Sodium (Protonix -) 20 mg PO DAILY [facility] Last Admin: 04/19/17 10:39 Dose: 20 mg Polyethylene Glycol (Miralax (For Daily Use) -) 17 gm PO DAILY [facility] Last Admin: 04/19/17 10:58 Dose: Not Given Potassium Chloride (K-Dur -) 20 meq PO DAILY [facility] Last Admin: 04/19/17 10:39 Dose: 20 meq Fluticasone/Salmeterol (Advair 100mcg/50mcg -) 1 puff IH BID [facility] Last Admin: 04/19/17 10:55 Dose: 1 puff - Objective Vital Signs: Vital Signs Temperature 98.2 F 04/19/17 10:00 Pulse Rate 90 04/19/17 10:00 Respiratory Rate 18 04/19/17 10:00 Blood Pressure 140/87 04/19/17 10:00 O2 Sat by Pulse Oximetry (%) 98 04/18/17 21:00 Constitutional: Yes: Well Nourished, No Distress, Calm Cardiovascular: Yes: Pulse Irregular. No: Tachycardia, Gallop, Murmur, Rub Respiratory: Yes: Regular, CTA Bilaterally. No: Rales, Rhonchi, Wheezes Gastrointestinal: Yes: Normal Bowel Sounds, Soft. No: Distention, Tenderness Extremities: Yes: WNL Edema: No Labs: CBC, BMP 04/19/17 07:30 04/19/17 07:30 INR, PTT INR 1.59 (0.82-1.09) H 04/07/17 09:15 Assessment/Plan (1) Cholecystitis with cholelithiasis Assessment/Plan: -no surgery this admission -continue drain -antibiotics per ID Code(s): K80.10 - CALCULUS OF GALLBLADDER W CHRONIC CHOLECYST W/O OBSTRUCTION (2) Iliopsoas abscess Assessment/Plan: -s/p removal of drain Code(s): K68.12 - PSOAS MUSCLE ABSCESS (3) Epidural abscess Assessment/Plan: -resolving -neurosurgery following Code(s): G06.2 - EXTRADURAL AND SUBDURAL ABSCESS, UNSPECIFIED (4) Anemia Assessment/Plan: -s/p transfusion -monitor Code(s): D64.9 - ANEMIA, UNSPECIFIED Qualifiers: Anemia type: iron deficiency (5) Atrial fibrillation Assessment/Plan: -controlled -continue eliquis Code(s): I48.91 - UNSPECIFIED ATRIAL FIBRILLATION Qualifiers: Atrial fibrillation type: paroxysmal Qualified Code(s): I48.0 - Paroxysmal atrial fibrillation (6) Back pain Assessment/Plan: -continue gabapentin and dilaudid -continue PT -on decadron per neurosurgery -patient concerned not improving -neurosurgery following Code(s): M54.9 - DORSALGIA, UNSPECIFIED Qualifiers: Back pain location: low back pain Chronicity: acute Back pain laterality: bilateral Sciatica presence: without sciatica Qualified Code(s): M54.5 - Low back pain (7) Chest congestion Assessment/Plan -resolved -monitor Code(s): R09.89 - OTH SYMPTOMS AND SIGNS INVOLVING THE CIRC AND RESP SYSTEMS
[2017-04-19] MEDS: ACETAMINOPHEN 325 MG TABLET (FP) PO PRN (13:19)
--- NOTE | 2017-04-19 17:08 | CONSULT ---
Consult - text type - Consultation Consultation Note: Podiatry Consultation: 77 year old M, complicated history and medical admission of MSSA bacteremia with acute osteomyelitis and diskitis, podiatry consultation requested for trimming of elongated, thickened toe nails and appropriate foot hygiene. Patient now complaining of sciatic pains. Denies F/V/N/C/SOB/CP. Currently afebrile, VSS. PMHx: HTN, COPD, h/o acute osteomyelitis/diskitis, choledocholithiasis s/p ERCP Meds: noted in chart ALL: aloe SEN: Bilateral feet: pedal pulses palpable, TG wnl, CFT brisk to all toes bilaterally. Nails are elongated, discolored, thickened, tender with subungual debris x 10. No nail bed ulcerations, no signs of infection. Hyperkeratotic lesions bilateral plantar ball of foot, mild tenderness elicited on palpation. Imp: 77 year old M with onychomycosis x 10 1. Manual debridement of mycotic nails x 10 and bilateral hyperkeratotic lesions using nail nipper. Patient tolerated the procedure well without complications. 2. Appropriate foot hygiene discussed. 3. Management per medicine. 4. Upon discharge, january f/u with me in [facility] for routine care. [phone]. Thank you for the courtesy of this consultation. Mini Lugo DPM
[2017-04-19] MEDS: GABAPENTIN 400 MG CAPSULE (FP) PO SCH (21:23)
[2017-04-19] MEDS: MONTELUKAST NA 10 MG TABLET PO SCH (21:24)
[2017-04-19] MEDS: MELATONIN 1 MG TABLET PO SCH (21:25)
[2017-04-20] MEDS: GABAPENTIN 100 MG CAPSULE (FP) PO SCH (06:23)
--- NOTE | 2017-04-20 08:22 | PN ---
Progress Note (short form) - Note Progress Note: NEUROSURGERY Daughter at bedside R buttock and R thigh pain when up yesterday PE: Tmax 98.6, AF, VSS HEENT- NC/AT; Neck- supple; Cor- RR; Lungs- no wheezes; Abd- obese, benign; Ext - No sign of DVT CN- intact; Motor- 5/5 except L IP 4, L Quad/EHL/TA/gastroc/inv/ev 4-; Sensation - diminished PP/LT L L4-5 Chronic L4-5 spondylolisthesis with stenosis and mechanical LBP and L L4-5 radiculopathy, chronic on L and with newer symptoms on R MSSA bacteremia with L4-5 discitis/osteomyelitis and completed 8 weeks of iv abx Sterile L psoas fluid collection - drained Continuing drainage of gallbladder per IR and medical/GI team DVT prophylaxis Completing a short pulse of oral steroid today EMG/NCS lowers Options limited secondary to recent spinal infections Trial of Lyrica d/c neurontin
[2017-04-20 08:31] LABS: BASOPHIL 0.3 % (0-2.0); EOSINOPHIL 0.2 % (0-4.5); MCH 29.2 pg (25.7-33.7); MCHC 32.3 g/dl (32.0-35.9); MEAN CELL VOLUME 90.7 fl (80-96); MEAN PLT VOLUME 7.4 fl (7.5-11.1); NEUTROPHILS 79.2 % (42.8-82.8); PLATELET COUNT 470 K/MM3 (134-434); RDW 15.6 % (11.9-15.9); WHITE BLOOD COUNT 11.4 K/mm3 (4.0-10.0)
[2017-04-20 08:56] LABS: ANION GAP 8 (8-16); CALCIUM 9.5 mg/dL (8.5-10.1); CO2 27 mmol/L (21-32); GLUCOSE,RANDOM 85 mg/dL (74-106); MAGNESIUM 2.3 mg/dL (1.8-2.4); PHOSPHOROUS 3.4 mg/dL (2.5-4.9)
[2017-04-20 08:57] LABS: CREATININE 0.7 mg/dL (0.7-1.3)
[2017-04-20] MEDS ORDERED: PT OWN MED DRAWER 7, Y5N ONE (09:39)
[2017-04-20] MEDS: METOPROLOL TARTRATE 50 MG TABLET (FP) PO SCH ×2 (09:42→21:53)
[2017-04-20] MEDS: HYDROmorphone HCL 2 MG TABLET PO PRN ×2 (09:42→15:40)
[2017-04-20] MEDS: POLYETHYLENE GLYCOL 3350 119 GM BTL PO SCH (09:42)
[2017-04-20] MEDS: POTASSIUM CHLORIDE TABS 20 MEQ TABLET.ER (FP) PO SCH (09:43)
[2017-04-20] MEDS: ASCORBIC ACID 500 MG TABLET (FP) PO SCH (09:44)
[2017-04-20] MEDS: FERROUS SO4 325 MG TABLET (FP) PO SCH (09:44)
[2017-04-20] MEDS: PANTOPRAZOLE 20 MG TABLET (FP) PO SCH (09:44)
[2017-04-20] MEDS: APIXABAN 5 MG TABLET PO SCH ×2 (09:44→21:53)
[2017-04-20] MEDS: FOLIC ACID 1 MG TABLET (FP) PO SCH (09:44)
[2017-04-20] MEDS: LACTOBACILLUS ACIDOPHILUS 1 EACH TAB (FP) PO SCH (09:44)
[2017-04-20] MEDS: methylPREDNISolone 4 MG TABLET PO SCH (09:45)
[2017-04-20] MEDS: DICLOXACILLIN SODIUM 250 MG CAPSULE PO SCH ×2 (09:45→21:57)
[2017-04-20] MEDS: NYSTATIN 100,000 UNIT/GM TOPICAL CREAM 15 GM TUBE TP SCH ×2 (09:46→21:56)
[2017-04-20] MEDS: FLUTICASONE/SALMETEROL 100 MCG/50 MCG DISKUS IH SCH ×2 (09:46→21:55)
[2017-04-20] MEDS: MAGNESIUM OXIDE 400 MG TABLET (FP) PO SCH ×2 (09:46→21:53)
--- NOTE | 2017-04-20 11:16 | PN ---
Progress Note, Physician Chief Complaint: Mr Santacruz still with sciatica pain. Otherwise without complaints. No cp, sob, n/ v. - Current Medication List Current Medications: Active Medications Acetaminophen (Tylenol -) 650 mg PO Q4H PRN PRN Reason: PAIN Last Admin: 04/19/17 13:19 Dose: 650 mg Apixaban (Eliquis -) 5 mg PO BID [facility] Last Admin: 04/20/17 09:44 Dose: 5 mg Ascorbic Acid (Vitamin C -) 500 mg PO DAILY [facility] Last Admin: 04/20/17 09:44 Dose: 500 mg Dicloxacillin Sodium (Dynapen -) 500 mg PO BID [facility] Last Admin: 04/20/17 09:45 Dose: 500 mg Diltiazem HCl (Cardizem Cd -) 240 mg PO DAILY [facility] Last Admin: 04/20/17 09:48 Dose: 240 mg Diphenhydramine HCl (Benadryl -) 25 mg PO HS PRN PRN Reason: INSOMNIA Ferrous Sulfate (Feosol -) 325 mg PO DAILY [facility] Last Admin: 04/20/17 09:44 Dose: 325 mg Folic Acid (Folic Acid -) 1 mg PO DAILY [facility] Last Admin: 04/20/17 09:44 Dose: 1 mg Guaifenesin (Robitussin -) 10 ml PO Q4H PRN PRN Reason: COUGH Hydromorphone HCl (Dilaudid -) 2 mg PO Q4H PRN PRN Reason: PAIN Last Admin: 04/20/17 09:42 Dose: 2 mg Lactobacillus Acidophilus (Bacid -) 1 tab PO DAILY [facility] Last Admin: 04/20/17 09:44 Dose: 1 tab Magnesium Oxide (Mag-Ox -) 400 mg PO BID [facility] Last Admin: 04/20/17 09:46 Dose: 400 mg Melatonin (Melatonin) 3 mg PO HS [facility] Last Admin: 04/19/17 21:25 Dose: 3 mg Metoprolol Tartrate (Lopressor -) 50 mg PO BID [facility] Last Admin: 04/20/17 09:42 Dose: 50 mg Montelukast Sodium (Singulair -) 10 mg PO HS [facility] Last Admin: 04/19/17 21:24 Dose: 10 mg Nystatin (Mycostatin Cream -) 1 applic TP BID [facility] Last Admin: 04/20/17 09:46 Dose: 1 applic Pantoprazole Sodium (Protonix -) 20 mg PO DAILY [facility] Last Admin: 04/20/17 09:44 Dose: 20 mg Polyethylene Glycol (Miralax (For Daily Use) -) 17 gm PO DAILY [facility] Last Admin: 04/20/17 09:42 Dose: 17 gm Potassium Chloride (K-Dur -) 20 meq PO DAILY [facility] Last Admin: 04/20/17 09:43 Dose: 20 meq Pregabalin (Lyrica -) 25 mg PO TID [facility] Fluticasone/Salmeterol (Advair 100mcg/50mcg -) 1 puff IH BID [facility] Last Admin: 04/20/17 09:46 Dose: 1 puff - Objective Vital Signs: Vital Signs Temperature 97.6 F 04/20/17 08:40 Pulse Rate 89 04/20/17 08:40 Respiratory Rate 18 04/20/17 08:40 Blood Pressure 145/90 04/20/17 08:40 O2 Sat by Pulse Oximetry (%) 98 04/19/17 21:00 Constitutional: Yes: Well Nourished, No Distress, Calm Cardiovascular: Yes: Regular Rate and Rhythm. No: Gallop, Murmur, Rub Respiratory: Yes: Regular, CTA Bilaterally. No: Rales, Rhonchi, Wheezes Gastrointestinal: Yes: Normal Bowel Sounds, Soft. No: Distention, Tenderness Extremities: Yes: WNL Edema: No Labs: CBC, BMP 04/20/17 06:30 04/20/17 06:30 INR, PTT INR 1.59 (0.82-1.09) H 04/07/17 09:15 Assessment/Plan (1) Cholecystitis with cholelithiasis Assessment/Plan: -no surgery this admission -continue drain -antibiotics per ID, on oral dicloxacillin Code(s): K80.10 - CALCULUS OF GALLBLADDER W CHRONIC CHOLECYST W/O OBSTRUCTION (2) Iliopsoas abscess Assessment/Plan: -s/p removal of drain Code(s): K68.12 - PSOAS MUSCLE ABSCESS (3) Epidural abscess Assessment/Plan: -resolving -neurosurgery following -oral dicloxacillin as above Code(s): G06.2 - EXTRADURAL AND SUBDURAL ABSCESS, UNSPECIFIED (4) Anemia Assessment/Plan: -s/p transfusion -monitor Code(s): D64.9 - ANEMIA, UNSPECIFIED Qualifiers: Anemia type: iron deficiency (5) Atrial fibrillation Assessment/Plan: -controlled -continue eliquis Code(s): I48.91 - UNSPECIFIED ATRIAL FIBRILLATION Qualifiers: Atrial fibrillation type: paroxysmal Qualified Code(s): I48.0 - Paroxysmal atrial fibrillation (6) Back pain Assessment/Plan: -neurosurgery following -plan for EMG -trial of lyrica, gabapentin ineffective -cont PT Code(s): M54.9 - DORSALGIA, UNSPECIFIED Qualifiers: Back pain location: low back pain Chronicity: acute Back pain laterality: bilateral Sciatica presence: without sciatica Qualified Code(s): M54.5 - Low back pain (7) Chest congestion Assessment/Plan -resolved -monitor Code(s): R09.89 - OTH SYMPTOMS AND SIGNS INVOLVING THE CIRC AND RESP SYSTEMS
[2017-04-20] MEDS: PREGABALIN 25 MG CAPSULE PO SCH ×2 (13:04→21:53)
[2017-04-20] MEDS: ACETAMINOPHEN 325 MG TABLET (FP) PO PRN (18:00)
[2017-04-20] MEDS: MONTELUKAST NA 10 MG TABLET PO SCH (21:53)
[2017-04-20] MEDS: MELATONIN 1 MG TABLET PO SCH (21:54)
[2017-04-21] MEDS: PREGABALIN 25 MG CAPSULE PO SCH ×3 (06:01→21:11)
--- NOTE | 2017-04-21 07:41 | PN ---
Progress Note (short form) - Note Progress Note: NEUROSURGERY R buttock and R posterior thigh/calf pain when sitting and standing Pt reports EMG showing L LE radicular findings but not R (did not find report on chart) PE: AF, VSS HEENT- NC/AT; Neck- supple; Cor- RR; Lungs- no wheezes; Abd- obese, benign; Ext - No sign of DVT CN- intact; Motor- 5/5 except L IP 4, L Quad/EHL/TA/gastroc/inv/ev 4-; Sensation - diminished PP/LT L L4-5 WBC 11.4; Hgb 10.7 Chronic L4-5 spondylolisthesis with stenosis and mechanical LBP and L L4-5 radiculopathy, chronic on L and with newer symptoms on R MSSA bacteremia with L4-5 discitis/osteomyelitis and completed 8 weeks of iv abx Sterile L psoas fluid collection - drained DVT prophylaxis Switched from Neurontin to Lyrica yesterday Options limited secondary to recent spinal infections Reconsult Dr Mason re: other ? options
[2017-04-21 08:03] LABS: BASOPHIL 0.6 % (0-2.0); EOSINOPHIL 2.9 % (0-4.5); MCH 29.4 pg (25.7-33.7); MEAN CELL VOLUME 91.9 fl (80-96); MEAN PLT VOLUME 7.5 fl (7.5-11.1); NEUTROPHILS 73.3 % (42.8-82.8); PLATELET COUNT 466 K/MM3 (134-434); RDW 16.1 % (11.9-15.9); WHITE BLOOD COUNT 12.9 K/mm3 (4.0-10.0)
[2017-04-21] MEDS: HYDROmorphone HCL 2 MG TABLET PO PRN ×2 (08:17→17:40)
[2017-04-21 08:43] LABS: ANION GAP 10 (8-16); CALCIUM 9.6 mg/dL (8.5-10.1); CO2 28 mmol/L (21-32); CREATININE 0.8 mg/dL (0.7-1.3); GLUCOSE,RANDOM 76 mg/dL (74-106); MAGNESIUM 2.5 mg/dL (1.8-2.4); PHOSPHOROUS 3.4 mg/dL (2.5-4.9)
[2017-04-21] MEDS ORDERED: PT OWN MED DRAWER 7, Y5N ONE (09:33)
[2017-04-21] MEDS: APIXABAN 5 MG TABLET PO SCH ×2 (09:34→21:11)
[2017-04-21] MEDS: PANTOPRAZOLE 20 MG TABLET (FP) PO SCH (09:34)
[2017-04-21] MEDS: FOLIC ACID 1 MG TABLET (FP) PO SCH (09:34)
[2017-04-21] MEDS: LACTOBACILLUS ACIDOPHILUS 1 EACH TAB (FP) PO SCH (09:34)
[2017-04-21] MEDS: METOPROLOL TARTRATE 50 MG TABLET (FP) PO SCH ×2 (09:34→21:11)
[2017-04-21] MEDS: MAGNESIUM OXIDE 400 MG TABLET (FP) PO SCH ×2 (09:35→21:11)
[2017-04-21] MEDS: DICLOXACILLIN SODIUM 250 MG CAPSULE PO SCH ×2 (09:35→21:11)
[2017-04-21] MEDS: POLYETHYLENE GLYCOL 3350 119 GM BTL PO SCH (09:35)
[2017-04-21] MEDS: POTASSIUM CHLORIDE TABS 20 MEQ TABLET.ER (FP) PO SCH (09:35)
[2017-04-21] MEDS: FERROUS SO4 325 MG TABLET (FP) PO SCH (09:35)
[2017-04-21] MEDS: ASCORBIC ACID 500 MG TABLET (FP) PO SCH (09:35)
[2017-04-21] MEDS: NYSTATIN 100,000 UNIT/GM TOPICAL CREAM 15 GM TUBE TP SCH ×2 (09:36→21:18)
[2017-04-21] MEDS: FLUTICASONE/SALMETEROL 100 MCG/50 MCG DISKUS IH SCH ×2 (09:36→21:13)
--- NOTE | 2017-04-21 17:14 | PN ---
Progress Note, Physician Chief Complaint: Mr Santacruz still having sciatica pain but controlled. No cp, sob, n/v. Wants to be discharged - Current Medication List Current Medications: Active Medications Acetaminophen (Tylenol -) 650 mg PO Q4H PRN PRN Reason: PAIN Last Admin: 04/20/17 18:00 Dose: 650 mg Apixaban (Eliquis -) 5 mg PO BID [facility] Last Admin: 04/21/17 09:34 Dose: 5 mg Ascorbic Acid (Vitamin C -) 500 mg PO DAILY [facility] Last Admin: 04/21/17 09:35 Dose: 500 mg Dicloxacillin Sodium (Dynapen -) 500 mg PO BID [facility] Last Admin: 04/21/17 09:35 Dose: 500 mg Diltiazem HCl (Cardizem Cd -) 240 mg PO DAILY [facility] Last Admin: 04/21/17 09:34 Dose: 240 mg Diphenhydramine HCl (Benadryl -) 25 mg PO HS PRN PRN Reason: INSOMNIA Ferrous Sulfate (Feosol -) 325 mg PO DAILY [facility] Last Admin: 04/21/17 09:35 Dose: 325 mg Folic Acid (Folic Acid -) 1 mg PO DAILY [facility] Last Admin: 04/21/17 09:34 Dose: 1 mg Guaifenesin (Robitussin -) 10 ml PO Q4H PRN PRN Reason: COUGH Hydromorphone HCl (Dilaudid -) 2 mg PO Q4H PRN PRN Reason: PAIN Last Admin: 04/21/17 08:17 Dose: 2 mg Lactobacillus Acidophilus (Bacid -) 1 tab PO DAILY [facility] Last Admin: 04/21/17 09:34 Dose: 1 tab Magnesium Oxide (Mag-Ox -) 400 mg PO BID [facility] Last Admin: 04/21/17 09:35 Dose: 400 mg Melatonin (Melatonin) 3 mg PO HS [facility] Last Admin: 04/20/17 21:54 Dose: 3 mg Metoprolol Tartrate (Lopressor -) 50 mg PO BID [facility] Last Admin: 04/21/17 09:34 Dose: 50 mg Montelukast Sodium (Singulair -) 10 mg PO HS [facility] Last Admin: 04/20/17 21:53 Dose: 10 mg Nystatin (Mycostatin Cream -) 1 applic TP BID [facility] Last Admin: 04/21/17 09:36 Dose: 1 applic Pantoprazole Sodium (Protonix -) 20 mg PO DAILY [facility] Last Admin: 04/21/17 09:34 Dose: 20 mg Polyethylene Glycol (Miralax (For Daily Use) -) 17 gm PO DAILY [facility] Last Admin: 04/21/17 09:35 Dose: 17 gm Potassium Chloride (K-Dur -) 20 meq PO DAILY [facility] Last Admin: 04/21/17 09:35 Dose: 20 meq Pregabalin (Lyrica -) 25 mg PO TID [facility] Last Admin: 04/21/17 14:55 Dose: 25 mg Fluticasone/Salmeterol (Advair 100mcg/50mcg -) 1 puff IH BID [facility] Last Admin: 04/21/17 09:36 Dose: 1 puff - Objective Vital Signs: Vital Signs Temperature 98.3 F 04/21/17 15:24 Pulse Rate 92 H 04/21/17 15:24 Respiratory Rate 18 04/21/17 15:24 Blood Pressure 112/73 04/21/17 15:24 O2 Sat by Pulse Oximetry (%) 99 04/21/17 09:00 Constitutional: Yes: Well Nourished, No Distress, Calm Cardiovascular: Yes: Regular Rate and Rhythm. No: Gallop, Murmur, Rub Respiratory: Yes: Regular, CTA Bilaterally. No: Rales, Rhonchi, Wheezes Gastrointestinal: Yes: Normal Bowel Sounds, Soft. No: Distention, Tenderness Extremities: Yes: WNL Edema: No Labs: CBC, BMP 04/21/17 06:30 04/21/17 06:30 INR, PTT INR 1.59 (0.82-1.09) H 04/07/17 09:15 Assessment/Plan (1) Cholecystitis with cholelithiasis Assessment/Plan: -no surgery this admission -continue drain -antibiotics per ID, on oral dicloxacillin Code(s): K80.10 - CALCULUS OF GALLBLADDER W CHRONIC CHOLECYST W/O OBSTRUCTION (2) Iliopsoas abscess Assessment/Plan: -s/p removal of drain Code(s): K68.12 - PSOAS MUSCLE ABSCESS (3) Epidural abscess Assessment/Plan: -resolving -neurosurgery following -oral dicloxacillin as above Code(s): G06.2 - EXTRADURAL AND SUBDURAL ABSCESS, UNSPECIFIED (4) Anemia Assessment/Plan: -s/p transfusion -monitor Code(s): D64.9 - ANEMIA, UNSPECIFIED Qualifiers: Anemia type: iron deficiency (5) Atrial fibrillation Assessment/Plan: -controlled -continue eliquis Code(s): I48.91 - UNSPECIFIED ATRIAL FIBRILLATION Qualifiers: Atrial fibrillation type: paroxysmal Qualified Code(s): I48.0 - Paroxysmal atrial fibrillation (6) Back pain Assessment/Plan: -neurosurgery following -continue pain control -call placed to [facility] about discharge, awaiting call back Code(s): M54.9 - DORSALGIA, UNSPECIFIED Qualifiers: Back pain location: low back pain Chronicity: acute Back pain laterality: bilateral Sciatica presence: without sciatica Qualified Code(s): M54.5 - Low back pain (7) Chest congestion Assessment/Plan -resolved Code(s): R09.89 - OTH SYMPTOMS AND SIGNS INVOLVING THE CIRC AND RESP SYSTEMS Dispo -plan for discharge to [facility], will speak with physician prior to transfer
[2017-04-21] MEDS: MELATONIN 1 MG TABLET PO SCH (21:10)
[2017-04-21] MEDS: MONTELUKAST NA 10 MG TABLET PO SCH (21:11)
[2017-04-22] MEDS: PREGABALIN 25 MG CAPSULE PO SCH (05:50)
[2017-04-22 08:32] LABS: MCH 29.8 pg (25.7-33.7); MCHC 32.4 g/dl (32.0-35.9); MEAN PLT VOLUME 7.4 fl (7.5-11.1); PLATELET COUNT 488 K/MM3 (134-434); RDW 16.3 % (11.9-15.9)
--- NOTE | 2017-04-22 08:55 | PN ---
Progress Note (short form) - Note Progress Note: NEUROSURGERY Walking does not cause as much pain; but sitting is problematic PE: AF, VSS HEENT- NC/AT; Neck- supple; Cor- RR; Lungs- no wheezes; Abd- obese, benign; Ext - No sign of DVT CN- intact; Motor- 5/5 except L IP 4, L Quad/EHL/TA/gastroc/inv/ev 4-; Sensation - diminished PP/LT L L4-5 WBC 11.4; Hgb 10.7 Chronic L4-5 spondylolisthesis with stenosis and mechanical LBP and L L4-5 radiculopathy, chronic on L and with newer symptoms on R MSSA bacteremia with L4-5 discitis/osteomyelitis and completed 8 weeks of iv abx Sterile L psoas fluid collection - drained DVT prophylaxis Increase Lyrica (some minor improvement and no side effects) Options limited secondary to recent spinal infections Will d/w Dr Mason
[2017-04-22 08:59] LABS: ANION GAP 10 (8-16); CALCIUM 9.3 mg/dL (8.5-10.1); CO2 28 mmol/L (21-32); CREATININE 0.7 mg/dL (0.7-1.3); GLUCOSE,RANDOM 86 mg/dL (74-106); MAGNESIUM 2.4 mg/dL (1.8-2.4); PHOSPHOROUS 3.6 mg/dL (2.5-4.9)
[2017-04-22] MEDS: HYDROmorphone HCL 2 MG TABLET PO PRN (09:04)
[2017-04-22] MEDS ORDERED: PT OWN MED DRAWER 7, Y5N ONE (09:46)
[2017-04-22] MEDS: APIXABAN 5 MG TABLET PO SCH (09:52)
[2017-04-22] MEDS: FERROUS SO4 325 MG TABLET (FP) PO SCH (09:52)
[2017-04-22] MEDS: MAGNESIUM OXIDE 400 MG TABLET (FP) PO SCH (09:52)
[2017-04-22] MEDS: ASCORBIC ACID 500 MG TABLET (FP) PO SCH (09:52)
[2017-04-22] MEDS: LACTOBACILLUS ACIDOPHILUS 1 EACH TAB (FP) PO SCH (09:52)
[2017-04-22] MEDS: METOPROLOL TARTRATE 50 MG TABLET (FP) PO SCH (09:52)
[2017-04-22] MEDS: PANTOPRAZOLE 20 MG TABLET (FP) PO SCH (09:52)
[2017-04-22] MEDS: FOLIC ACID 1 MG TABLET (FP) PO SCH (09:52)
[2017-04-22] MEDS: FLUTICASONE/SALMETEROL 100 MCG/50 MCG DISKUS IH SCH (09:53)
[2017-04-22] MEDS: DICLOXACILLIN SODIUM 250 MG CAPSULE PO SCH (09:54)
[2017-04-22] MEDS: NYSTATIN 100,000 UNIT/GM TOPICAL CREAM 15 GM TUBE TP SCH (09:55)
[2017-04-22] MEDS: POLYETHYLENE GLYCOL 3350 119 GM BTL PO SCH (09:55)
--- NOTE | 2017-04-22 11:02 | DS ---
Physical Examination Vital Signs: Vital Signs Temperature 97.5 F L 04/22/17 06:35 Pulse Rate 104 H 04/22/17 09:20 Respiratory Rate 18 04/22/17 06:35 Blood Pressure 150/78 04/22/17 06:35 O2 Sat by Pulse Oximetry (%) 94 L 04/22/17 09:20 Constitutional: Yes: Well Nourished, No Distress, Calm Cardiovascular: Yes: Regular Rate and Rhythm. No: Gallop, Murmur, Rub Respiratory: Yes: Regular, CTA Bilaterally. No: Rales, Rhonchi, Wheezes Gastrointestinal: Yes: Normal Bowel Sounds, Soft. No: Distention, Tenderness Extremities: Yes: WNL Edema: No Labs: CBC, BMP 04/22/17 06:00 04/22/17 06:00 Discharge Summary Reason For Visit: ILIOPSOAS ABSCESS Current Active Problems Chest congestion (Acute) Cholecystitis with cholelithiasis (Acute) Iliopsoas abscess (Acute) Hospital Course: (1) Cholecystitis with cholelithiasis Code(s): K80.10 - CALCULUS OF GALLBLADDER W CHRONIC CHOLECYST W/O OBSTRUCTION (2) Iliopsoas abscess Code(s): K68.12 - PSOAS MUSCLE ABSCESS (3) Epidural abscess Code(s): G06.2 - EXTRADURAL AND SUBDURAL ABSCESS, UNSPECIFIED (4) Anemia Code(s): D64.9 - ANEMIA, UNSPECIFIED Qualifiers: Anemia type: iron deficiency (5) Atrial fibrillation Code(s): I48.91 - UNSPECIFIED ATRIAL FIBRILLATION Qualifiers: Atrial fibrillation type: paroxysmal Qualified Code(s): I48.0 - Paroxysmal atrial fibrillation (6) Back pain Code(s): M54.9 - DORSALGIA, UNSPECIFIED Qualifiers: Back pain location: low back pain Chronicity: acute Back pain laterality: bilateral Sciatica presence: without sciatica Qualified Code(s): M54.5 - Low back pain (7) Chest congestion Code(s): R09.89 - OTH SYMPTOMS AND SIGNS INVOLVING THE CIRC AND RESP SYSTEMS Mr Santacruz is a very pleasant 77 year old male who comes in with cholecystitis and cholelithiasis and iliopsoas/epidural abscess. He was admitted to the hospital and seen by both surgery and ID. He was continued on his IV antibiotics and finished the course for his iliopsoas abscess. He was seen by surgery and felt he would benefit from cholecystostomy drain placement over cholecystectomy. This was done and he tolerated this well. He also had a drain placed in his left psoas secondary to abscess. This drained and once it stopped iliopsoas drain was removed without difficulty. Patient improved but had sciatica. He was seen by neurosurgery and pain management, placed on regimen and this is improving. He is up with PT and ambulating. He is safe for discharge back to [place] for further care and rehabilitation. He should follow up with Dr Sanchez for timing on cholecystectomy. 48 minutes spent in preparation of this discharge Condition: Good - Instructions Diet, Activity, Other Instructions: low fat diet. Up with assistance, further activity per PT at [facility]. Continue cholecystostomy care. Referrals: Josh Galeano MD [Primary Care Provider] - Josh Mirza MD [Staff Physician] - Felton Herrera MD [Staff Physician] - Nikita Sanchez MD [Staff Physician] - Disposition: RETIREMENT FACILITY - Home Medications Comprehensive Discharge Medication List: Ambulatory Orders Montelukast Na [Singulair -] 10 mg PO DAILY 02/10/17 Acetaminophen [Tylenol .Regular Strength -] 650 mg PO Q4H PRN #0 tablet Apixaban [Eliquis -] 5 mg PO BID tablet 03/01/17 Folic Acid - 1 mg PO DAILY tablet 03/01/17 Metoprolol Tartrate [Lopressor -] 50 mg PO BID tablet 03/01/17 Nystatin Cream [Mycostatin Cream -] 1 applic TP BID applic 03/01/17 Ipratropium/Albuterol Sulfate [Iprat-Albut 0.5-3(2.5) mg/3 ml] 3 ml IH Q4H 03/21 Melatonin 3 mg PO HS 03/21/17 Omeprazole 20 mg PO DAILY 03/22/17 Ascorbic Acid [Vitamin C -] 500 mg PO DAILY tablet 03/29/17 Diltiazem Cd [Cardizem Cd -] 240 mg PO DAILY #30 cap 03/29/17 Diphenhydramine HCl [Benadryl Capsule -] 25 mg PO HS PRN #0 cap 03/29/17 Ferrous Sulfate [Feosol] 325 mg PO DAILY tab 03/29/17 Lactobacillus Acidophilus [Bacid -] 1 tab PO DAILY tab 03/29/17 Salmeterol/Fluticasone [Advair 100Mcg/50Mcg -] 1 puff IH BID inhaler 03/29/17 Dicloxacillin Sodium [Dynapen -] 500 mg PO BID cap 04/22/17 Hydromorphone [Dilaudid -] 2 mg PO Q4H PRN #0 tablet MDD 12mg 04/22/17 Magnesium Oxide [Mag-Ox -] 400 mg PO BID tablet 04/22/17 Polyethylene Glycol 3350 [Miralax 119 gm Btl -] 17 gm PO DAILY bottle 04/22/17 Potassium Chloride [K-Dur -] 20 meq PO DAILY tab.ec 04/22/17 Pregabalin [Lyrica -] 50 mg PO TID cap MDD 150mg 04/22/17
[2017-04-22] MEDS: POTASSIUM CHLORIDE TABS 20 MEQ TABLET.ER (FP) PO SCH (11:17)
[2017-04-22] MEDS: ACETAMINOPHEN 325 MG TABLET (FP) PO PRN (11:17)
[2017-04-22 12:53] LABS: PLATELET ESTIMATE ADEQUATE (NORMAL)
[2017-04-22] MEDS ORDERED: PREGABALIN 50 MG CAPSULE PO SCH (14:00)
[2017-04-22 15:39] VITALS: BP 148/72; PULSE 84; TEMP 97.4
[2017-04-22] MEDS ORDERED: HYDROmorphone HCL 2 MG TABLET PO ONE (15:49)
== END 2017-04-22 16:50 | DRG 371 ==
LOC: JER 14:20 → JERBED 19:22 → J8W 20:56
PROVIDERS: ADMIT Internal Medicine; ATTEND Internal Medicine
PROC: 0F943ZX Drainage of Gallbladder, Percutaneous Approach, Diagnostic (ICD-10-PCS; 2017-04-06)
PROC: 0W9H30Z Drainage of Retroperitoneum with Drainage Device, Percutaneous Approach (ICD-10-PCS; principal; 2017-04-08)
PROC: BF12YZZ Fluoroscopy of Gallbladder using Other Contrast (ICD-10-PCS; 2017-04-08)
PROC: 0WPHX0Z Removal of Drainage Device from Retroperitoneum, External Approach (ICD-10-PCS; 2017-04-15)
PROC: 0HBRXZZ Excision of Toe Nail, External Approach (ICD-10-PCS; 2017-04-19)
PROC: 0HBRXZZ Excision of Toe Nail, External Approach (ICD-10-PCS; 2017-04-19)
PROC: 0HBRXZZ Excision of Toe Nail, External Approach (ICD-10-PCS; 2017-04-19)
PROC: 0HBRXZZ Excision of Toe Nail, External Approach (ICD-10-PCS; 2017-04-19)
PROC: 0HBRXZZ Excision of Toe Nail, External Approach (ICD-10-PCS; 2017-04-19)
PROC: 0HBRXZZ Excision of Toe Nail, External Approach (ICD-10-PCS; 2017-04-19)
PROC: 0HBRXZZ Excision of Toe Nail, External Approach (ICD-10-PCS; 2017-04-19)
PROC: 0HBRXZZ Excision of Toe Nail, External Approach (ICD-10-PCS; 2017-04-19)
PROC: 0HBRXZZ Excision of Toe Nail, External Approach (ICD-10-PCS; 2017-04-19)
PROC: 0HBRXZZ Excision of Toe Nail, External Approach (ICD-10-PCS; 2017-04-19)
DX: K68.12 Psoas muscle abscess (principal); G06.2 Extradural and subdural abscess, unspecified; I71.8 Aortic aneurysm of unspecified site, ruptured; K80.10 Calculus of gallbladder with chronic cholecystitis without obstruction; M46.26 Osteomyelitis of vertebra, lumbar region; I50.30 Unspecified diastolic (congestive) heart failure; J44.9 Chronic obstructive pulmonary disease, unspecified; D64.9 Anemia, unspecified; M54.16 Radiculopathy, lumbar region; M43.16 Spondylolisthesis, lumbar region; A49.01 Methicillin susceptible Staphylococcus aureus infection, unspecified site; M46.46 Discitis, unspecified, lumbar region; I48.0 Paroxysmal atrial fibrillation; R09.89 Other specified symptoms and signs involving the circulatory and respiratory systems; E87.6 Hypokalemia; E88.09 Other disorders of plasma-protein metabolism, not elsewhere classified; B35.1 Tinea unguium; I11.0 Hypertensive heart disease with heart failure
CPT/HCPCS: 36415; 47490; 49406; 72149-TC; 74177-TC; 76098-TC; 76942-TC; 77012-TC; 80048; 80053; 80076; 81003; 81015; 82150; 82272; 82977; 83605; 83690; 83735; 84100; 85025; 85027; 85610; 85651; 85730; 86140; 87040; 87070; 87075; 87186; 87205; 87899; 93005; 93010; 94640; 95860-TC; 97116-GP; 99284-25; A4358; A9576; C1729; C1769; J1644

== ENCOUNTER 2017-05-16 11:28 | Inpatient (IN) | payer OTHER, BC ==
[2017-05-16 11:45] VITALS: BMI 23.6
--- NOTE | 2017-05-16 11:52 | PDOC ---
Attending Attestation - Resident Resident Name: Josh rBewer - ED Attending Attestation I have performed the following: I have examined & evaluated the patient, The case was reviewed & discussed with the resident, I agree w/resident's findings & plan, Exceptions are as noted - HPI HPI: 05/16/17 11:49 Cholelithiasis in very complicated medical situation - Physicial Exam PE: 05/16/17 11:50 Not Toxic/Vitals Stable - Medical Decision Making 05/16/17 11:[address] Brewer assessment and plan
--- NOTE | 2017-05-16 12:09 | PDOC ---
History of Present Illness - General Chief Complaint: Pain, Acute Stated Complaint: SENT BY DR Juan Seen by Provider: 05/16/17 11:39 - History of Present Illness Initial Comments: 05/16/17 11:54 Mr Santacruz is a 77 with history of cholecystits s/p cholecystomy on 04/03, MSSA osteomyelitis of spine, COPD, Anemia, aFib, HTN and thoracic aortic aneurysm here today for cholecystectomy. He has been worked up as an outpatient and is here to have his gallbladder removed. He currently has no abdominal pain, shortness of breath, or chest pain. He states there's been no pain or change to his cholecystomy site. PCP: Dr Galeano, admitting to Dr Morrow Surgeon: Dr Sanchez Past History - Past Medical History Allergies/Adverse Reactions: Allergies Allergy/AdvReac Type Severity Reaction Status Date / Time aloe Allergy Severe Rash Verified 03/21/17 14:21 aloe vera Allergy Severe Rash Verified 03/21/17 14:21 Home Medications: Ambulatory Orders Acetaminophen [Tylenol] 325 mg PO Q4H PRN 05/16/17 Ascorbate Calcium [Vitamin C] 500 mg PO DAILY 05/16/17 Bisacodyl [Dulcolax] 10 mg RC HS 05/16/17 Diclofenac Sodium [Voltaren] 100 gm TP BID 05/16/17 Diclofenac Sodium [Voltaren] 100 gm TP BID PRN 05/16/17 Diltiazem HCl [Tiazac] 240 mg PO DAILY 05/16/17 Diphenhydramine HCl [Benadryl -] 25 mg PO Q4H 05/16/17 Docusate Sodium [Colace -] 100 mg PO TID 05/16/17 Duloxetine HCl [Cymbalta -] 30 mg PO DAILY 05/16/17 Ferrous Sulfate 325 mg PO DAILY 05/16/17 Folic Acid 1 mg PO DAILY 05/16/17 Guaifenesin Dm [Robitussin Dm -] 5 ml PO Q4H 05/16/17 Hydromorphone [Dilaudid -] 2 mg PO Q4H PRN 05/16/17 Ipratropium/Albuterol Sulfate [Iprat-Albut 0.5-3(2.5) mg/3 ml] 3 ml IH Q4H PRN 05/16/17 Lactobacillus Acidophilus [Bacid -] 1 each PO DAILY 05/16/17 Lidocaine 2% Jelly [Xylocaine 2% Jelly] 0 applic TP BID 05/16/17 Mag Hydrox/Al Hydrox/Simeth [Mylanta Oral Suspension -] 30 ml PO Q4H PRN Magnesium Oxide [Mag-Ox -] 400 mg PO BID 05/16/17 Magnesium Oxide [Magnesium] 400 mg PO DAILY PRN 05/16/17 Melatonin 3 mg PO HS 05/16/17 Metoprolol Tartrate [Lopressor] 50 mg PO BID 05/16/17 Montelukast Na [Singulair -] 10 mg PO HS 05/16/17 Nystatin Cream [Mycostatin] 1 applic TP BID 05/16/17 Omeprazole 20 mg PO DAILY 05/16/17 Ondansetron [Zofran -] 4 mg PO TID 05/16/17 Polyethylene Glycol 3350 [Miralax (For Daily Use) -] 17 gm PO DAILY PRN Pregabalin [Lyrica -] 150 mg PO Q8H 05/16/17 Salmeterol/Fluticasone [Advair 100Mcg/50Mcg -] 1 inh PO BID 05/16/17 Sennosides [Senna] 2 tab PO BID 05/16/17 Anemia: Yes Asthma: Yes Cardiac Disorders: Yes (p. AFIB, THORACIC AORTIC ANEURYSM) COPD: Yes HTN: Yes Other medical history: osteomylitis of spine - Surgical History Abdominal Surgery: Yes (HERNIA) - Psycho/Social/Smoking Cessation Hx Anxiety: No Suicidal Ideation: No Smoking History: Unknown if ever smoked Have you smoked in the past 12 months: No Information on smoking cessation initiated: No Hx Alcohol Use: No Drug/Substance Use Hx: No Substance Use Type: Alcohol Hx Substance Use Treatment: No Review of Systems - Review of Systems Comments:: 05/16/17 12:09 GENERAL/CONSTITUTIONAL: No fever or chills. No weakness. HEAD, EYES, EARS, NOSE AND THROAT: No change in vision. No ear pain or discharge. No sore throat. CARDIOVASCULAR: No chest pain or shortness of breath RESPIRATORY: No cough, wheezing, or hemoptysis. GASTROINTESTINAL: No nausea, vomiting, diarrhea. Positive for constipation. LBM y/d with suppositories GENITOURINARY: No dysuria, frequency, or change in urination. MUSCULOSKELETAL: Pain in left knee from bursititis SKIN: No rash NEUROLOGIC: No headache, vertigo, loss of consciousness, or change in strength/ sensation. HEMATOLOGIC/LYMPHATIC: No anemia, easy bleeding, or history of blood clots. ALLERGIC/IMMUNOLOGIC: No hives or skin allergy. *Physical Exam - Vital Signs Last Vital Signs Temp Pulse Resp BP Pulse Ox 97.5 F L 104 H 20 135/92 97 05/16/17 11:42 05/16/17 11:42 05/16/17 11:42 05/16/17 11:42 05/16/17 11:42 - Physical Exam Comments: 05/16/17 12:10 GENERAL: Awake, alert, and fully oriented, in no acute distress HEAD: No signs of trauma, normocephalic, atraumatic EYES: PERRLA, EOMI, sclera anicteric, conjunctiva clear ENT: Auricles normal inspection, hearing grossly normal, nares patent, oropharynx clear without exudates. Moist mucosa LUNGS: No distress, speaks full sentences, clear to auscultation bilaterally HEART: Regular rate and rhythm, normal S1 and S2, no murmurs, rubs or gallops, peripheral pulses normal and equal bilaterally. ABDOMEN: Soft, nontender, normoactive bowel sounds. No guarding, no rebound. No masses EXTREMITIES: Normal inspection, Normal range of motion, no edema. No clubbing or cyanosis. SKIN: Warm, Dry, normal turgor, no rashes or lesions noted. ED Treatment Course - LABORATORY CBC & Chemistry Diagram: 05/16/17 12:07 05/16/17 12:07 - RADIOLOGY Radiology Studies Ordered: Category Date Time Status CHEST X-RAY PORTABLE* [RAD] Stat Radiology 05/16/17 11:51 Ordered Medical Decision Making - Medical Decision Making 05/16/17 12:10 77M with history of MSSA osteomyelitis, cholecystitis s/p cholecystomy, anemia, asthma, COPD, aFib, and thoracic aortic aneurysm here today for pre-op workup before admission for cholecystectomy. Vital signs stable and normal, pre-op evaluation and labs ordered. 05/16/17 13:45 Labs show slight anemia, otherwise unremarkable. Admitting to Dr Morrow. 05/16/17 13:46 CXR shows no acute cardiopulmnary disease. 05/16/17 13:47 EKG shows normal axis, normal rate, LVH voltage criteria, no ST elevations, no t wave inversions. *DC/Admit/Observation/Transfer Diagnosis at time of Disposition: Cholecystectomy planned - Discharge Dispostion Condition at time of disposition: Stable Admit: Yes
[2017-05-16 12:47] LABS: BASOPHIL 0.8 % (0-2.0); EOSINOPHIL 5.3 % (0-4.5); MCH 28.3 pg (25.7-33.7); MCHC 31.8 g/dl (32.0-35.9); MEAN PLT VOLUME 7.5 fl (7.5-11.1); NEUTROPHILS 67.1 % (42.8-82.8); PLATELET COUNT 474 K/MM3 (134-434); RDW 15.3 % (11.9-15.9); WHITE BLOOD COUNT 7.1 K/mm3 (4.0-10.0)
[2017-05-16 13:06] LABS: INR 1.51 (0.82-1.09); PROTHROMBIN TIME (PATIENT) 16.8 SEC (9.98-11.88)
[2017-05-16 13:08] LABS: ACTIVATED PTT 36.9 SECONDS (26.9-34.4)
[2017-05-16 13:16] LABS: ALBUMIN 2.6 g/dl (3.4-5.0); ANION GAP 7 (8-16); CALCIUM 9.2 mg/dL (8.5-10.1); CO2 31 mmol/L (21-32); CREATININE 0.7 mg/dL (0.7-1.3); GLUCOSE,RANDOM 87 mg/dL (74-106); SGOT/AST 12 U/L (15-37); SGPT/ALT 13 U/L (12-78)
[2017-05-16 13:18] LABS: ALK PHOS 109 U/L (45-117); BILIRUBIN,TOTAL 0.4 mg/dL (0.2-1.0); TOT PROT 7.6 g/dl (6.4-8.2)
[2017-05-16] MEDS ORDERED: HYDROmorphone HCL 2 MG TABLET PO PRN (14:42)
[2017-05-16] MEDS ORDERED: ALBUTEROL SO4 2.5/IPRATROPIUM 0.5 INH SOL 3 ML VIAL.NEB. NEB PRN (14:42)
[2017-05-16] MEDS ORDERED: ACETAMINOPHEN 325 MG TABLET (FP) PO PRN (14:42)
[2017-05-16] MEDS ORDERED: MAG HYDROX/AL HYDROX/SIMETH 30 ML UNIT-DOSE CUP PO PRN (14:42)
[2017-05-16] MEDS ORDERED: POLYETHYLENE GLYCOL 3350 119 GM BTL PO PRN (14:42)
[2017-05-16] MEDS ORDERED: ONDANSETRON 4 MG/2 ML VIAL IVPB PRN (14:44)
[2017-05-16] MEDS ORDERED: PATIENT'S OWN MEDICATION (NON-FORMULARY) (Pregabalin [Lyrica -] 150 MG) PO SCH (14:45)
--- NOTE | 2017-05-16 14:59 | HP ---
Admitting History and Physical - Primary Care Physician PCP: Josh Galeano - Admission Chief Complaint: I'm here for my surgery History of Present Illness: Mr Santacruz is a pleasant 77 year old male who comes in for planned surgery. He says he has been feeling fine and has been doing well at rehab. He denies fevers , chills, lightheadedness, dizziness, passing out, chest pain or pressure, shortness of breath, coughing, abdominal pain, nausea, vomiting, difficulty or pain on urination, or swelling. He says he is doing really well and is without complaint. History Source: Patient Limitations to Obtaining History: No Limitations - Past Medical History Cardiovascular: Yes: HTN Pulmonary: Yes: COPD Gastrointestinal: Yes: Other (history of choledocholithiasis s/p ERCP with Dr. 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[employer] History of Recent Travel: Yes (as above) Home Medications - Allergies Allergies/Adverse Reactions: Allergies Allergy/AdvReac Type Severity Reaction Status Date / Time aloe Allergy Severe Rash Verified 03/21/17 14:21 aloe vera Allergy Severe Rash Verified 03/21/17 14:21 - Home Medications Home Medications: Ambulatory Orders Acetaminophen [Tylenol] 325 mg PO Q4H PRN 05/16/17 Ascorbate Calcium [Vitamin C] 500 mg PO DAILY 05/16/17 Bisacodyl [Dulcolax] 10 mg RC HS 05/16/17 Diclofenac Sodium [Voltaren] 100 gm TP BID 05/16/17 Diclofenac Sodium [Voltaren] 100 gm TP BID PRN 05/16/17 Diltiazem HCl [Tiazac] 240 mg PO DAILY 05/16/17 Diphenhydramine HCl [Benadryl -] 25 mg PO Q4H 05/16/17 Docusate Sodium [Colace -] 100 mg PO TID 05/16/17 Duloxetine HCl [Cymbalta -] 30 mg PO DAILY 05/16/17 Ferrous Sulfate 325 mg PO DAILY 05/16/17 Folic Acid 1 mg PO DAILY 05/16/17 Guaifenesin Dm [Robitussin Dm -] 5 ml PO Q4H 05/16/17 Hydromorphone [Dilaudid -] 2 mg PO Q4H PRN 05/16/17 Ipratropium/Albuterol Sulfate [Iprat-Albut 0.5-3(2.5) mg/3 ml] 3 ml IH Q4H PRN 05/16/17 Lactobacillus Acidophilus [Bacid -] 1 each PO DAILY 05/16/17 Lidocaine 2% Jelly [Xylocaine 2% Jelly] 0 applic TP BID 05/16/17 Mag Hydrox/Al Hydrox/Simeth [Mylanta Oral Suspension -] 30 ml PO Q4H PRN Magnesium Oxide [Mag-Ox -] 400 mg PO BID 05/16/17 Magnesium Oxide [Magnesium] 400 mg PO DAILY PRN 05/16/17 Melatonin 3 mg PO HS 05/16/17 Metoprolol Tartrate [Lopressor] 50 mg PO BID 05/16/17 Montelukast Na [Singulair -] 10 mg PO HS 05/16/17 Nystatin Cream [Mycostatin] 1 applic TP BID 05/16/17 Omeprazole 20 mg PO DAILY 05/16/17 Ondansetron [Zofran -] 4 mg PO TID 05/16/17 Polyethylene Glycol 3350 [Miralax (For Daily Use) -] 17 gm PO DAILY PRN Pregabalin [Lyrica -] 150 mg PO Q8H 05/16/17 Salmeterol/Fluticasone [Advair 100Mcg/50Mcg -] 1 inh PO BID 05/16/17 Sennosides [Senna] 2 tab PO BID 05/16/17 Family Disease History - Family Disease History Family Disease History: Other: Father ( 44: CVA), Mother ( 93: old age) , Sister (2 sisters, healthy) Review of Systems Findings/Remarks: Full review of systems obtained, as per HPI and otherwise negative. Physical Examination Vital Signs: Vital Signs Temperature 36.4 C L 05/16/17 11:42 Pulse Rate 104 H 05/16/17 11:42 Respiratory Rate 20 05/16/17 11:42 Blood Pressure 135/92 05/16/17 11:42 O2 Sat by Pulse Oximetry (%) 97 05/16/17 11:42 Constitutional: Yes: Well Nourished, No Distress, Calm Eyes: Yes: Conjunctiva Clear, EOM Intact, PERRL HENT: Yes: Atraumatic, Normocephalic Cardiovascular: Yes: Pulse Irregular. No: Tachycardia, Gallop, Murmur, Rub Respiratory: Yes: Regular, CTA Bilaterally. No: Rales, Rhonchi, Wheezes Gastrointestinal: Yes: Normal Bowel Sounds, Soft. No: Distention, Tenderness Extremities: Yes: WNL Edema: No Labs: CBC, BMP 05/16/17 12:07 05/16/17 12:07 Imaging - Results Chest X-ray: Report Reviewed, Image Reviewed EKG: Pending Problem List - Problems (1) Cholecystectomy planned Assessment/Plan: -planning for surgery on Tuesday -admit to hospital, patient complicated and inappropriate to do as an outpatient -surgery consulted -cardiology consulted for cardiac clearance -npo after midnight on tuesday Code(s): LPL6977 - (2) Atrial fibrillation Assessment/Plan: -rate controlled -continue toprol xl and cardizem -discharged on eliquis, holding currently for surgery -recheck INR in am since elevated from eliquis Code(s): I48.91 - UNSPECIFIED ATRIAL FIBRILLATION Qualifiers: Atrial fibrillation type: paroxysmal Qualified Code(s): I48.0 - Paroxysmal atrial fibrillation (3) Anemia Assessment/Plan: -continue iron supplementation -stable Code(s): D64.9 - ANEMIA, UNSPECIFIED Qualifiers: Anemia type: iron deficiency (4) COPD (chronic obstructive pulmonary disease) Assessment/Plan: -without exacerbation -continue duonebs, singulair, and advair Code(s): J44.9 - CHRONIC OBSTRUCTIVE PULMONARY DISEASE, UNSPECIFIED (5) Back pain Assessment/Plan: -well controlled Code(s): M54.9 - DORSALGIA, UNSPECIFIED Qualifiers: Back pain location: low back pain Chronicity: chronic Back pain laterality: bilateral Sciatica presence: without sciatica Qualified Code(s): M54.5 - Low back pain; G89.29 - Other chronic pain
[2017-05-16] MEDS: diphenhydrAMINE HCL 25 MG CAPSULE (FP) PO SCH ×2 (17:40→22:35)
--- NOTE | 2017-05-16 18:51 | EKG ---
Test Reason : Blood Pressure : / mmHG Vent. Rate : 092 BPM Atrial Rate : 092 BPM P-R Int : 176 ms QRS Dur : 094 ms QT Int : 360 ms P-R-T Axes : 014 -26 001 degrees QTc Int : 445 ms NORMAL SINUS RHYTHM VOLTAGE CRITERIA FOR LEFT VENTRICULAR HYPERTROPHY ABNORMAL ECG WHEN COMPARED WITH ECG OF 05-APR-2017 15:27, NO SIGNIFICANT CHANGE WAS FOUND Confirmed by MATEO MACKEY MD ([id number]) on 05/16/2017 6:51:09 PM Referred By: Confirmed By:MATEO MACKEY MD
[2017-05-16] MEDS: FLUTICASONE/SALMETEROL 100 MCG/50 MCG DISKUS IH SCH (21:01)
[2017-05-16] MEDS: MONTELUKAST NA 10 MG TABLET PO SCH (21:02)
[2017-05-16] MEDS: METOPROLOL TARTRATE 50 MG TABLET (FP) PO SCH (21:02)
[2017-05-16] MEDS: PREGABALIN 75 MG CAPSULE PO SCH (21:02)
[2017-05-16] MEDS: HEPARIN NA (PORCINE) 5,000 UNITS/ML 1ML VIAL SQ SCH (21:02)
[2017-05-16] MEDS: SENNOSIDES 8.6MG TABLET (FP) PO SCH (21:02)
[2017-05-16] MEDS: DOCUSATE SODIUM 100 MG CAPSULE (FP) PO SCH (21:03)
[2017-05-16] MEDS ORDERED: PATIENT'S OWN MEDICATION (NON-FORMULARY) (Melatonin [Melatonin] 3 MG) PO SCH (22:00)
[2017-05-16] MEDS: MELATONIN 1 MG TABLET PO SCH (22:36)
[2017-05-17] MEDS: HEPARIN NA (PORCINE) 5,000 UNITS/ML 1ML VIAL SQ SCH ×2 (06:13→14:55)
[2017-05-17] MEDS: diphenhydrAMINE HCL 25 MG CAPSULE (FP) PO SCH ×6 (06:13→22:12)
[2017-05-17] MEDS: DOCUSATE SODIUM 100 MG CAPSULE (FP) PO SCH ×3 (06:14→22:08)
[2017-05-17] MEDS: PREGABALIN 75 MG CAPSULE PO SCH ×3 (06:14→22:08)
[2017-05-17 07:44] LABS: BASOPHIL 0.8 % (0-2.0); MCH 28.4 pg (25.7-33.7); MCHC 31.8 g/dl (32.0-35.9); MEAN CELL VOLUME 89.3 fl (80-96); NEUTROPHILS 66.2 % (42.8-82.8); PLATELET COUNT 452 K/MM3 (134-434); RDW 15.6 % (11.9-15.9); WHITE BLOOD COUNT 7.3 K/mm3 (4.0-10.0)
[2017-05-17 07:55] LABS: INR 1.39 (0.82-1.09); PROTHROMBIN TIME (PATIENT) 15.4 SEC (9.98-11.88)
[2017-05-17 08:22] LABS: ALBUMIN 2.3 g/dl (3.4-5.0); ALK PHOS 110 U/L (45-117); ANION GAP 7 (8-16); BILIRUBIN,TOTAL 0.4 mg/dL (0.2-1.0); CALCIUM 9.4 mg/dL (8.5-10.1); CO2 30 mmol/L (21-32); CREATININE 0.7 mg/dL (0.7-1.3); GLUCOSE,RANDOM 72 mg/dL (74-106); MAGNESIUM 2.2 mg/dL (1.8-2.4); PHOSPHOROUS 4.3 mg/dL (2.5-4.9); SGOT/AST 14 U/L (15-37); SGPT/ALT 15 U/L (12-78); TOT PROT 6.9 g/dl (6.4-8.2)
--- NOTE | 2017-05-17 09:21 | PN ---
Progress Note (short form) - Note Progress Note: surgery pt seen and examined. In rehab for epidural abscess. History percutaneous cholecystostomy for acute cholecysititis one month ago. Pt admitted for anticipated cholecystectomyh. afebrile abd- soft, nt, drain with bile Laboratory Tests 04/07/17 05/17/17 05/17/17 06:30 06:50 06:50 WBC 9.7 Plt Count 452 H Albumin 2.3 L Plan- history of acute cholecysititis treated well with percutaneous drain. Pt still in rehab from epidural abscess. If patient felt to be medically optimized for elective cholecystectomy can proceed with surgery tomorrow. If there is benefit in delaying surgery should reschedule as this is elective. Pt is at increased risk of conversion to open and injury to common bile duct.
[2017-05-17] MEDS: PANTOPRAZOLE 20 MG TABLET (FP) PO SCH (09:41)
[2017-05-17] MEDS: FERROUS SO4 325 MG TABLET (FP) PO SCH (09:41)
[2017-05-17] MEDS: ASCORBIC ACID 500 MG TABLET (FP) PO SCH (09:41)
[2017-05-17] MEDS: FOLIC ACID 1 MG TABLET (FP) PO SCH (09:41)
[2017-05-17] MEDS: DULoxetine HCL 30 MG CAPSULE.DR (FP) PO SCH (09:41)
[2017-05-17] MEDS: METOPROLOL TARTRATE 50 MG TABLET (FP) PO SCH ×2 (09:41→22:08)
[2017-05-17] MEDS: FLUTICASONE/SALMETEROL 100 MCG/50 MCG DISKUS IH SCH ×2 (09:42→22:15)
[2017-05-17] MEDS: SENNOSIDES 8.6MG TABLET (FP) PO SCH ×2 (09:56→22:08)
[2017-05-17] MEDS ORDERED: PATIENT'S OWN MEDICATION (NON-FORMULARY) (Ferrous Sulfate [Ferrous Sulfate] 325 MG) PO SCH (10:00)
[2017-05-17] MEDS ORDERED: DILTIAZEM HCL 240 MG PO SCH (10:00)
[2017-05-17] MEDS ORDERED: PATIENT'S OWN MEDICATION (NON-FORMULARY) (Ascorbate Calcium [Vitamin C] 500 MG) PO SCH (10:00)
[2017-05-17] MEDS ORDERED: PATIENT'S OWN MEDICATION (NON-FORMULARY) (Omeprazole 20 MG) PO SCH (10:00)
--- NOTE | 2017-05-17 11:12 | CON.CARD ---
Consult Consult Specialty:: Cardiology Referred by:: Dr. 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 He was admitted to [facility] in March with acute cholecystitis and was given antibiotics now returns for elective laparoscopic cholecystectomy. He denies any abdominal pain. He denies chest pain, shortness of breath or palpitations. He denies paraoxysmal nocturnal dyspnea or orthopnea. He denies fever or chills. He denies headache or lightheadedness. Cardiology consultation was called for further evaluation. - History Source History Provided By: Patient, Medical Record Limitations to Obtaining History: No Limitations - Past Medical History Cardio/Vascular: Yes: AFIB, HTN Pulmonary: Yes: COPD Gastrointestinal: Yes: Other (history of choledocholithiasis s/p ERCP with Dr. 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 5) Musculoskeletal: Yes: Chronic low back pain, Other (sciatica right side) - Past Surgical History Past Surgical History: Yes: Hernia Repair (RIH), Tonsillectomy Additional Surgical History: Abscess drain - Alcohol/Substance Use Hx Alcohol Use: Yes (Social) History of Substance Use: reports: None - Smoking History Smoking history: Never smoked Have you smoked in the past 12 months: No - Social History Usual Living Arrangement: With Spouse (lives in house with , 2 steps to enter and 1 step inside) ADL: Independent 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[employer] History of Recent Travel: Yes (as above) Home Medications - Allergies Allergies/Adverse Reactions: Allergies Allergy/AdvReac Type Severity Reaction Status Date / Time aloe Allergy Severe Rash Verified 03/21/17 14:21 aloe vera Allergy Severe Rash Verified 03/21/17 14:21 - Home Medications Home Medications: Ambulatory Orders Acetaminophen [Tylenol] 325 mg PO Q4H PRN 05/16/17 Ascorbate Calcium [Vitamin C] 500 mg PO DAILY 05/16/17 Bisacodyl [Dulcolax] 10 mg RC HS 05/16/17 Diclofenac Sodium [Voltaren] 100 gm TP BID 05/16/17 Diclofenac Sodium [Voltaren] 100 gm TP BID PRN 05/16/17 Diltiazem HCl [Tiazac] 240 mg PO DAILY 05/16/17 Diphenhydramine HCl [Benadryl -] 25 mg PO Q4H 05/16/17 Docusate Sodium [Colace -] 100 mg PO TID 05/16/17 Duloxetine HCl [Cymbalta -] 30 mg PO DAILY 05/16/17 Ferrous Sulfate 325 mg PO DAILY 05/16/17 Folic Acid 1 mg PO DAILY 05/16/17 Guaifenesin Dm [Robitussin Dm -] 5 ml PO Q4H 05/16/17 Hydromorphone [Dilaudid -] 2 mg PO Q4H PRN 05/16/17 Ipratropium/Albuterol Sulfate [Iprat-Albut 0.5-3(2.5) mg/3 ml] 3 ml IH Q4H PRN 05/16/17 Lactobacillus Acidophilus [Bacid -] 1 each PO DAILY 05/16/17 Lidocaine 2% Jelly [Xylocaine 2% Jelly] 0 applic TP BID 05/16/17 Mag Hydrox/Al Hydrox/Simeth [Mylanta Oral Suspension -] 30 ml PO Q4H PRN Magnesium Oxide [Mag-Ox -] 400 mg PO BID 05/16/17 Magnesium Oxide [Magnesium] 400 mg PO DAILY PRN 05/16/17 Melatonin 3 mg PO HS 05/16/17 Metoprolol Tartrate [Lopressor] 50 mg PO BID 05/16/17 Montelukast Na [Singulair -] 10 mg PO HS 05/16/17 Nystatin Cream [Mycostatin] 1 applic TP BID 05/16/17 Omeprazole 20 mg PO DAILY 05/16/17 Ondansetron [Zofran -] 4 mg PO TID 05/16/17 Polyethylene Glycol 3350 [Miralax (For Daily Use) -] 17 gm PO DAILY PRN 08/28/ 17 Pregabalin [Lyrica -] 150 mg PO Q8H 05/16/17 Salmeterol/Fluticasone [Advair 100Mcg/50Mcg -] 1 inh PO BID 05/16/17 Sennosides [Senna] 2 tab PO BID 05/16/17 Family Disease History - Family Disease History Family Disease History: Other: Father ( 44: CVA), Mother ( 93: old age) , Sister (2 sisters, healthy) Review of Systems - Review of Systems Constitutional: denies: Chills, Fever Cardiovascular: denies: Chest Pain, Palpitations, Shortness of Breath Respiratory: denies: Cough, Hemoptysis, Orthopnea, PND, SOB, SOB on Exertion Gastrointestinal: denies: Abdominal Pain, Constipation, Diarrhea, Melena, Nausea , Rectal Bleeding, Vomiting Musculoskeletal: reports: Back Pain Neurological: denies: Dizziness, Headache, Seizure, Syncope, Weakness Vital Signs: Vital Signs Temperature 97.5 F L 05/17/17 09:40 Pulse Rate 90 05/17/17 09:40 Respiratory Rate 18 05/17/17 09:40 Blood Pressure 117/71 05/17/17 09:40 O2 Sat by Pulse Oximetry (%) 97 05/16/17 22:00 Neck: Yes: Supple Respiratory: Yes: CTA Bilaterally Gastrointestinal: Yes: Normal Bowel Sounds, Soft. No: Distention, Tenderness, Tenderness, Rebound Cardiovascular: Yes: Regular Rate and Rhythm JVD: No Carotid Bruit: No PMI: Non-Displaced Heart Sounds: Yes: S1, S2. No: Gallop Murmur: Yes: Systolic Murmur (Soft SM at LSB and apex), Grade 1 Edema: No - Other Data Labs, Other Data: CBC, BMP 05/17/17 06:50 05/17/17 06:50 INR, PTT INR 1.39 (0.82-1.09) H 05/17/17 06:50 Laboratory Results - last 24 hr 05/16/17 05/16/17 05/16/17 12:07 12:07 12:07 WBC 7.1 D RBC 3.81 L Hgb 10.8 L Hct 33.9 L MCV 89.0 MCH 28.3 MCHC 31.8 L RDW 15.3 Plt Count 474 H MPV 7.5 Neutrophils % 67.1 Lymphocytes % 17.4 Monocytes % 9.4 D Eosinophils % 5.3 H D Basophils % 0.8 INR 1.51 H PTT (Actin FS) 36.9 H Sodium 138 Potassium 4.1 Chloride 100 Carbon Dioxide 31 Anion Gap 7 L BUN 11 D Creatinine 0.7 Creat Clearance w eGFR > 60 Random Glucose 87 Calcium 9.2 Phosphorus Magnesium Total Bilirubin 0.4 D AST 12 L ALT 13 D Alkaline Phosphatase 109 D Total Protein 7.6 Albumin 2.6 L Blood Type Antibody Screen 05/16/17 05/17/17 05/17/17 12:07 06:50 06:50 WBC 7.3 RBC 3.61 L Hgb 10.2 L Hct 32.3 L MCV 89.3 MCH 28.4 MCHC 31.8 L RDW 15.6 Plt Count 452 H MPV 8.0 Neutrophils % 66.2 Lymphocytes % 16.3 Monocytes % 9.7 Eosinophils % 7.0 H Basophils % 0.8 INR 1.39 H PTT (Actin FS) Sodium Potassium Chloride Carbon Dioxide Anion Gap BUN Creatinine Creat Clearance w eGFR Random Glucose Calcium Phosphorus Magnesium Total Bilirubin AST ALT Alkaline Phosphatase Total Protein Albumin Blood Type A POSITIVE Antibody Screen Negative 05/17/17 06:50 WBC RBC Hgb Hct MCV MCH MCHC RDW Plt Count MPV Neutrophils % Lymphocytes % Monocytes % Eosinophils % Basophils % INR PTT (Actin FS) Sodium 138 Potassium 4.8 Chloride 101 Carbon Dioxide 30 Anion Gap 7 L BUN 12 Creatinine 0.7 Creat Clearance w eGFR > 60 Random Glucose 72 L Calcium 9.4 Phosphorus 4.3 Magnesium 2.2 Total Bilirubin 0.4 AST 14 L ALT 15 Alkaline Phosphatase 110 Total Protein 6.9 Albumin 2.3 L Blood Type Antibody Screen Sinus rhythm with LVH, no ST-T abnormality Echo: Report Reviewed Imaging - Results Chest X-ray: Report Reviewed (Unremarkable) EKG: Report Reviewed Problem List - Problems (1) COPD (chronic obstructive pulmonary disease) Code(s): J44.9 - CHRONIC OBSTRUCTIVE PULMONARY DISEASE, UNSPECIFIED (2) Cholecystectomy planned Code(s): PFL6987 - (3) Anemia Code(s): D64.9 - ANEMIA, UNSPECIFIED Qualifiers: Anemia type: iron deficiency (4) Atrial fibrillation Code(s): I48.91 - UNSPECIFIED ATRIAL FIBRILLATION Qualifiers: Atrial fibrillation type: paroxysmal Qualified Code(s): I48.0 - Paroxysmal atrial fibrillation (5) MSSA (methicillin susceptible Staphylococcus aureus) septicemia Code(s): A41.01 - SEPSIS DUE TO METHICILLIN SUSCEPTIBLE STAPHYLOCOCCUS AUREUS (6) HTN (hypertension) Code(s): I10 - ESSENTIAL (PRIMARY) HYPERTENSION (7) Discitis Code(s): M46.40 - DISCITIS, UNSPECIFIED, SITE UNSPECIFIED (8) Spinal abscess Code(s): M46.20 - OSTEOMYELITIS OF VERTEBRA, SITE UNSPECIFIED Assessment/Plan 1. pre-operative evaluation prior to elective lap cholecystectomy - history of cholecystitis 2. Paroxysmal atrial fibrillation remains in sinus rhythm, [id number] score of 3 3. HTN 4. History of discitis/para-spinal abscess 5. COPD PLAN: 1. There appears to be no absolute contraindications in proceeding with surgery in view of absence of ischemic symptoms, decompensated congestive heart failure or malignant arrhhythmias. Post operative ECG recommended 2. Continue Lopressor and Cardizem even on the morning of surgery with small sip of water 3. Agree holding Eliquis, but should be restarted after surgery 4. Continue remainder of medications Thank you for the consultation. Further plans are to be followed Jaquan Calvert MD
--- NOTE | 2017-05-17 12:49 | PN ---
Progress Note, Physician Chief Complaint: Looking forward to surgery tomorrow. 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 Patient has been at [facility] and is now able to walk with walker and slowly improved with Gait. Plan will be to transfer back when surgery is completed. Patient was on Eliquis thru Tuesday but will be off for 3 days by Tuesday surgery. Seen by Cardiology. CXR and EKG and lab stable. No medical contraindications to surgery. - Current Medication List Current Medications: Active Medications Acetaminophen (Tylenol -) 325 mg PO Q4H PRN PRN Reason: PAIN Al Hydroxide/Mg Hydroxide (Mylanta Oral Suspension -) 30 ml PO Q4H PRN PRN Reason: dyspepsia/abdominal discomfort Albuterol/Ipratropium (Duoneb -) 1 amp NEB Q4H PRN PRN Reason: SHORTNESS OF BREATH Ascorbic Acid (Vitamin C -) 500 mg PO DAILY [facility] Last Admin: 05/17/17 09:41 Dose: 500 mg Diltiazem HCl (Cardizem Cd -) 240 mg PO DAILY [facility] Last Admin: 05/17/17 09:54 Dose: 240 mg Diphenhydramine HCl (Benadryl -) 25 mg PO Q4H [facility] Last Admin: 05/17/17 11:00 Dose: Not Given Docusate Sodium (Colace -) 100 mg PO TID [facility] Last Admin: 05/17/17 06:14 Dose: 100 mg Duloxetine HCl (Cymbalta -) 30 mg PO DAILY [facility] Last Admin: 05/17/17 09:41 Dose: 30 mg Ferrous Sulfate (Feosol -) 325 mg PO DAILY [facility] Last Admin: 05/17/17 09:41 Dose: 325 mg Folic Acid (Folic Acid -) 1 mg PO DAILY [facility] Last Admin: 05/17/17 09:41 Dose: 1 mg Heparin Sodium (Porcine) (Heparin -) 5,000 unit SQ TID [facility] Last Admin: 05/17/17 06:13 Dose: 5,000 unit Hydromorphone HCl (Dilaudid -) 2 mg PO Q4H PRN PRN Reason: PAIN Melatonin (Melatonin) 3 mg PO HS [facility] Last Admin: 05/16/17 22:36 Dose: 3 mg Metoprolol Tartrate (Lopressor -) 50 mg PO BID [facility] Last Admin: 05/17/17 09:41 Dose: 50 mg Montelukast Sodium (Singulair -) 10 mg PO HS [facility] Last Admin: 05/16/17 21:02 Dose: 10 mg Ondansetron HCl (Zofran Injection) 4 mg IVPB Q6H PRN PRN Reason: NAUSEA Pantoprazole Sodium (Protonix -) 20 mg PO DAILY [facility] Last Admin: 05/17/17 09:41 Dose: 20 mg Polyethylene Glycol (Miralax (For Daily Use) -) 17 gm PO DAILY PRN PRN Reason: CONSTIPATION Pregabalin (Lyrica -) 150 mg PO TID [facility] Last Admin: 05/17/17 06:14 Dose: 150 mg Fluticasone/Salmeterol (Advair 100mcg/50mcg -) 1 puff IH BID [facility] Last Admin: 05/17/17 09:42 Dose: 1 puff Senna (Senna -) 2 tab PO BID [facility] Last Admin: 05/17/17 09:56 Dose: Not Given - Objective Vital Signs: Vital Signs Temperature 97.5 F L 05/17/17 09:40 Pulse Rate 90 05/17/17 09:40 Respiratory Rate 18 05/17/17 09:40 Blood Pressure 117/71 05/17/17 09:40 O2 Sat by Pulse Oximetry (%) 97 05/16/17 22:00 Constitutional: Yes: Calm Eyes: Yes: Conjunctiva Clear Cardiovascular: Yes: Regular Rate and Rhythm Respiratory: Yes: Diminished, Rhonchi (few rhonchi at bases.) Gastrointestinal: Yes: Soft, Other (Cholecystostomy tube in place.) Genitourinary: No: Fragoso Present Edema: No Neurological: Yes: Alert, Oriented Labs: CBC, BMP 05/17/17 06:50 05/17/17 06:50 INR, PTT INR 1.39 (0.82-1.09) H 05/17/17 06:50 Problem List - Problems (1) Cholecystectomy planned Assessment/Plan: Hx; Acute sepsis and Colecystitis. For Cholecystectomy. Code(s): FYV1885 - (2) Discitis Assessment/Plan: Resolved after 8 weeks of IV antibiotics. Code(s): M46.40 - DISCITIS, UNSPECIFIED, SITE UNSPECIFIED (3) HTN (hypertension) Assessment/Plan: Stable on Rx. Code(s): I10 - ESSENTIAL (PRIMARY) HYPERTENSION (4) Spinal abscess Assessment/Plan: Resolved on Antibiotics. Code(s): M46.20 - OSTEOMYELITIS OF VERTEBRA, SITE UNSPECIFIED (5) Atrial fibrillation Code(s): I48.91 - UNSPECIFIED ATRIAL FIBRILLATION Qualifiers: Atrial fibrillation type: paroxysmal Qualified Code(s): I48.0 - Paroxysmal atrial fibrillation (6) Pain Assessment/Plan: Currently pain left knee due bursitis. Code(s): R52 - PAIN, UNSPECIFIED (7) Thoracic aortic aneurysm without rupture Assessment/Plan: 4.1 cm TAA to follow in future. Code(s): I71.2 - THORACIC AORTIC ANEURYSM, WITHOUT RUPTURE (8) Paroxysmal atrial fibrillation Assessment/Plan: Has been on Eliquis thru Tuesday but will be off 72 hrs. by Tue. surgery. Code(s): I48.0 - PAROXYSMAL ATRIAL FIBRILLATION
[2017-05-17 13:15] LABS: URINE APPEARANCE CLEAR; URINE BILIRUBIN NEGATIVE (NEGATIVE); URINE BLOOD NEGATIVE (NEGATIVE); URINE COLOR YELLOW; URINE GLUCOSE (UA) NEGATIVE (NEGATIVE); URINE KETONE NEGATIVE (NEGATIVE); URINE NITRITE NEGATIVE (NEGATIVE); URINE PROTEIN NEGATIVE (NEGATIVE); URINE UROBILINOGEN NEGATIVE mg/dL (0.2-1.0)
[2017-05-17 13:18] LABS: URINE LEUK ESTERASE 1+ (NEGATIVE)
[2017-05-17 13:20] LABS: URINE MUCUS RARE; URINE RBC 1 /hpf (0-3); URINE WBC 4 /hpf (3-5)
[2017-05-17] MEDS ORDERED: BISACODYL 10 MG SUPP.RECT RC PRN (20:50)
[2017-05-17] MEDS: MELATONIN 1 MG TABLET PO SCH (22:11)
[2017-05-17] MEDS: MONTELUKAST NA 10 MG TABLET PO SCH (22:12)
[2017-05-18] MEDS: diphenhydrAMINE HCL 25 MG CAPSULE (FP) PO SCH ×3 (06:44→13:38)
[2017-05-18] MEDS: PREGABALIN 75 MG CAPSULE PO SCH ×3 (06:45→21:45)
[2017-05-18] MEDS: DOCUSATE SODIUM 100 MG CAPSULE (FP) PO SCH ×3 (06:45→21:44)
[2017-05-18 07:30] LABS: INR 1.31 (0.82-1.09); PROTHROMBIN TIME (PATIENT) 14.5 SEC (9.98-11.88)
--- NOTE | 2017-05-18 08:32 | PN ---
Progress Note (short form) - Note Progress Note: Patient will be going to OR at 9:30 AM for Cholecystectomy. Complicated past history involving Acute Osteomyelitis, Discitis and Epidural Abscess treated with 8 weeks IV antibiotics. That was complicated by readmission for sepsis due to Acute Cholecystitis. A cholecystostomy tube was placed and he has since been in [facility]. Multiple testing has been done on this admission and Cardiology consult placed. Vital Signs Temp 97.5 F L 05/18/17 06:00 Pulse 73 05/18/17 06:00 Resp 20 05/18/17 06:00 BP 117/74 05/18/17 06:00 Pulse Ox 95 05/17/17 22:00 Intake & Output 05/17/17 05/17/17 05/18/17 11:59 23:59 11:59 Intake Total 200 820 100 Output Total 450 600 400 Balance -250 220 -300 Intake: Oral 200 820 100 Output: Urine 450 600 400 Void 450 600 400 Other: Voiding Method Toilet Urinal Abnormal Lab Results 05/17/17 05/17/17 05/18/17 06:50 12:45 06:30 INR 1.31 H Anion Gap 7 L Random Glucose 72 L AST 14 L Albumin 2.3 L Ur Leukocyte Esterase 1+ H Lab, EKG and CXR stable. Heparin stopped yesterday afternoon and no Eliquis since Tuesday.Stable Physical Exam and Vital signs with no medical contraindication to this surgery. Problem List - Problems (1) Cholecystectomy planned Code(s): [id number] - (2) Discitis Code(s): M46.40 - DISCITIS, UNSPECIFIED, SITE UNSPECIFIED (3) HTN (hypertension) Code(s): I10 - ESSENTIAL (PRIMARY) HYPERTENSION (4) Spinal abscess Code(s): M46.20 - OSTEOMYELITIS OF VERTEBRA, SITE UNSPECIFIED (5) Atrial fibrillation Code(s): I48.91 - UNSPECIFIED ATRIAL FIBRILLATION Qualifiers: Atrial fibrillation type: paroxysmal Qualified Code(s): I48.0 - Paroxysmal atrial fibrillation (6) Pain Code(s): R52 - PAIN, UNSPECIFIED (7) Thoracic aortic aneurysm without rupture Code(s): I71.2 - THORACIC AORTIC ANEURYSM, WITHOUT RUPTURE (8) Paroxysmal atrial fibrillation Code(s): I48.0 - PAROXYSMAL ATRIAL FIBRILLATION
[2017-05-18] MEDS ORDERED: ROCURONIUM BROMIDE 50 MG/5 ML VIAL ONE (09:53)
[2017-05-18] MEDS ORDERED: ceFAZolin SODIUM 1 GM VIAL ONE (10:06)
[2017-05-18] MEDS ORDERED: DEXAMETHASONE SOD PHOSPHATE 4 MG/1 ML VIAL ONE ×2 (10:06→10:39)
[2017-05-18] MEDS ORDERED: ONDANSETRON 4 MG/2 ML VIAL ONE ×2 (10:06→10:39)
[2017-05-18] MEDS ORDERED: ceFAZolin SODIUM 1 GM VIAL IVPB ONE (10:07)
[2017-05-18] MEDS ORDERED: oxyCODONE HCL 5 MG TABLET PO PRN ×2 (10:13→11:54)
[2017-05-18] MEDS ORDERED: LACTATED RINGERS SOLUTION 1,000 ML IV SCH ×2 (10:15→11:54)
[2017-05-18] MEDS ORDERED: NEOSTIGMINE METHYLSULFATE 0.5 MG/ML - 10 ML MDV ONE (11:08)
[2017-05-18] MEDS ORDERED: GLYCOPYRROLATE 0.2 MG/1 ML VIAL ONE (11:08)
[2017-05-18] MEDS ORDERED: ACETAMINOPHEN 325 MG TABLET (FP) PO PRN ×2 (11:43→11:54)
--- NOTE | 2017-05-18 11:46 | OP ---
Operative Note - Note: Operative Date: 05/18/17 Pre-Operative Diagnosis: acute cholecystitis, cholelithiasis, chronic cholecystitis Operation: laparoscopic cholecystectomy, lavage Findings: pale, densely adhesed, chronic gb with short cystic duct Post-Operative Diagnosis: Same as Pre-op Surgeon: Nikita Sanchez Quality Control Expert: Jamal Christensen Anesthesiologist/LENDING ADVISOR: Irwin Herbert Anesthesia: General Specimens Removed: gb Estimated Blood Loss (mls): 30 Operative Report Dictated: Yes
[2017-05-18] MEDS ORDERED: BISACODYL 10 MG SUPP.RECT RC PRN (11:54)
[2017-05-18] MEDS ORDERED: HYDROmorphone HCL 2 MG TABLET PO PRN (11:54)
[2017-05-18] MEDS ORDERED: ONDANSETRON 4 MG/2 ML VIAL IVPB PRN (11:54)
[2017-05-18] MEDS ORDERED: ALBUTEROL SO4 2.5/IPRATROPIUM 0.5 INH SOL 3 ML VIAL.NEB. NEB PRN (11:54)
[2017-05-18] MEDS ORDERED: POLYETHYLENE GLYCOL 3350 119 GM BTL PO PRN (11:54)
[2017-05-18] MEDS ORDERED: MAG HYDROX/AL HYDROX/SIMETH 30 ML UNIT-DOSE CUP PO PRN (11:54)
--- NOTE | 2017-05-18 12:56 | OP ---
DATE OF OPERATION: 05/18/2017 PREOPERATIVE DIAGNOSIS: Acute cholecystitis, chronic cholecystitis, cholelithiasis, history of cholecystostomy tube. POSTOPERATIVE DIAGNOSIS: Acute cholecystitis, chronic cholecystitis, cholelithiasis, history of cholecystostomy tube. PROCEDURE: Laparoscopic cholecystectomy and lavage. SURGEON: Nikita Sanchez DO DOLL WIG MAKER: Jamal Christensen MD ANESTHESIOLOGIST: Carmenza Looney MD SPECIMEN: Gallbladder. INTRAOPERATIVE FINDINGS: Very pale distended thickened gallbladder with dense omental adhesions and a shortened cystic duct. DRAINS: None. BLOOD LOSS: Approximately 30 mL. COMPLICATIONS: None. DISPOSITION: Recovery room in stable condition. BRIEF HISTORY: This is a 77-year-old male who had recently been admitted to [facility] for an epidural abscess. At that time, he was noted to incidentally develop acute cholecystitis. This was managed by percutaneous drainage. Now, one month later, he has been fully optimized by the medical and cardiology service and presents now for elective cholecystectomy. He was admitted to the hospital prior to surgery by the medical service for optimization. DESCRIPTION OF PROCEDURE: The patient was placed in a supine procedure. After general anesthesia was initiated, the abdomen was prepped and draped in sterile fashion. Ancef was given prophylactically. At this point, a transverse incision was made infraumbilical with scalpel used to go through the skin and subcutaneous tissue. The fascia was then lifted with Naren clamp, Veress needle was inserted, and pneumoperitoneum was created. Next, an 11-mm trocar was placed followed by insertion of a 10-mm 0-degree laparoscope. Next, an additional 11-mm trocar was placed subxiphoid, and two 5-mm trocars were then placed in the right upper quadrant, one in the midclavicular line and one in the anterior axillary line. At this point, attention was turned towards the gallbladder. It was pale, white , thickened, and covered in omentum. The omentum was sharply dissected off the gallbladder. The gallbladder was then lifted cephalad, the infundibulum retracted laterally. The peritoneal peel was dissected down. It was quite thickened with significant scar tissue. At this point, the structures were identified. The cystic duct and cystic artery were identified and dissected out. The cystic duct was divided with an Endo GAMALIEL MultiFire load and when firing. The staple line was inspected. It was intact. There was no bleeding, no breaks, no sign of ischemia. The cystic artery was then clipped and divided. The gallbladder was then liberated from the liver bed using electrocautery. Hemostasis was maintained using electrocautery. The gallbladder was then removed through the infraumbilical trocar site after a significant fascial dilatation and sent to Pathology marked as specimen. This was done in an EndoCatch bag. A vigorous lavage was done, and all return was clear. Trocars were then removed under direct visualization, and no bleeding was noted. Pneumoperitoneum was then released. The fascia of the infraumbilical trocar site was then closed with multiple interrupted 0 Vicryl sutures, and the four skin incisions were closed with Biosyn, and Dermabond dressing was placed. The cholecystostomy tube was removed prior to the start of the operation, and the drain site was covered with gauze. The patients disposition was to go to the recovery room and then remain hospitalized per further medical management per the medical team. DO PB CASTANEDA/[id number] MTDD
[2017-05-18] MEDS: FLUTICASONE/SALMETEROL 100 MCG/50 MCG DISKUS IH SCH ×2 (13:38→21:46)
[2017-05-18] MEDS: FOLIC ACID 1 MG TABLET (FP) PO SCH (13:39)
[2017-05-18] MEDS: PANTOPRAZOLE 20 MG TABLET (FP) PO SCH (13:39)
[2017-05-18] MEDS: METOPROLOL TARTRATE 50 MG TABLET (FP) PO SCH ×2 (13:39→21:45)
[2017-05-18] MEDS: FERROUS SO4 325 MG TABLET (FP) PO SCH (13:39)
[2017-05-18] MEDS: SENNOSIDES 8.6MG TABLET (FP) PO SCH ×2 (13:39→21:44)
[2017-05-18] MEDS: DULoxetine HCL 30 MG CAPSULE.DR (FP) PO SCH (13:39)
[2017-05-18] MEDS: ASCORBIC ACID 500 MG TABLET (FP) PO SCH (13:39)
[2017-05-18] MEDS ORDERED: diphenhydrAMINE HCL 25 MG CAPSULE (FP) PO PRN (14:45)
[2017-05-18] MEDS ORDERED: PT OWN MED DRAWER 7, Y5N ONE (21:26)
[2017-05-18] MEDS: MONTELUKAST NA 10 MG TABLET PO SCH (21:45)
[2017-05-18] MEDS: MELATONIN 1 MG TABLET PO SCH (21:46)
[2017-05-19] MEDS: DOCUSATE SODIUM 100 MG CAPSULE (FP) PO SCH ×3 (06:13→22:45)
[2017-05-19] MEDS: PREGABALIN 75 MG CAPSULE PO SCH ×3 (06:13→22:45)
--- NOTE | 2017-05-19 08:41 | PN ---
Progress Note (short form) - Note Progress Note: Patient seems to have tolerated the Lap Cholecystectomy well. Will start diet today. HR now regular. Await decision of surgeon to restart Elidillanis. ? [facility] Vital Signs Temp 97.9 F 05/19/17 06:47 Pulse 88 05/19/17 06:47 Resp 20 05/19/17 06:47 BP 119/80 05/19/17 06:47 Pulse Ox 94 L 05/18/17 21:00 Intake & Output 05/18/17 05/18/17 05/19/17 11:59 23:59 11:59 Intake Total 1100 365 Output Total 420 0 600 Balance 680 365 -600 Intake: IV 1000 Oral 100 365 Output: Urine 400 0 600 Void 400 600 Estimated Blood Loss 20 Other: Voiding Method Urinal Urinal # Unmeasured Voids Void 1 Bowel Movement Yes # Bowel Movements 1 Alert Chest: Few rhonchi at bases Cor: Reg Abd: Soft with normal bowel sounds Ext:SCD's IMP: S/P Lap Cholecystectomy All Active Problems COPD (chronic obstructive pulmonary disease) (Acute) Cholecystectomy planned (Acute) Discitis (Acute) HTN (hypertension) (Acute) Paroxysmal atrial fibrillation (Acute) Spinal abscess (Acute) ALBERTO (acute kidney injury) (Acute) Anemia (Acute) Atrial fibrillation (Acute) Atrial fibrillation with rapid ventricular response (Acute) Back pain (Acute) Chest congestion (Acute) Cholecystitis with cholelithiasis (Acute) Enlarged prostate (Acute) Exogenous obesity (Acute) Foot pain, left (Acute) Hypokalemia (Acute) Hypomagnesemia (Acute) Hypotension (Acute) Iliopsoas abscess (Acute) 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 (Acute) Lactic acidosis (Acute) MSSA (methicillin susceptible Staphylococcus aureus) septicemia (Acute) Osteomyelitis (Acute) Pain (Acute) Paroxysmal atrial fibrillation with RVR (Acute) SIRS (systemic inflammatory response syndrome) (Acute) Sepsis (Acute) Sepsis associated hypotension (Acute) Sepsis associated with vascular access catheter (Acute) Septic discitis of lumbosacral region (Acute) Thoracic aortic aneurysm without rupture (Acute) Thrombocytopenia (Acute) Toxic metabolic encephalopathy (Acute) Problem List - Problems (1) Cholecystectomy planned Code(s): [id number] - (2) Discitis Code(s): M46.40 - DISCITIS, UNSPECIFIED, SITE UNSPECIFIED (3) HTN (hypertension) Code(s): I10 - ESSENTIAL (PRIMARY) HYPERTENSION (4) Spinal abscess Code(s): M46.20 - OSTEOMYELITIS OF VERTEBRA, SITE UNSPECIFIED (5) Atrial fibrillation Code(s): I48.91 - UNSPECIFIED ATRIAL FIBRILLATION Qualifiers: Atrial fibrillation type: paroxysmal Qualified Code(s): I48.0 - Paroxysmal atrial fibrillation (6) Pain Code(s): R52 - PAIN, UNSPECIFIED (7) Thoracic aortic aneurysm without rupture Code(s): I71.2 - THORACIC AORTIC ANEURYSM, WITHOUT RUPTURE (8) Paroxysmal atrial fibrillation Code(s): I48.0 - PAROXYSMAL ATRIAL FIBRILLATION
--- NOTE | 2017-05-19 09:04 | PN ---
Progress Note (short form) - Note Progress Note: surgery pt seen and examined. feels well. tolerating diet. voiding. afebrile abd- soft, nt, incisions clean Plan- surgically stable for d/c. ok to resume eliquis tomorrow. ok to shower. no lifting > 20lbs. no general surgical need for abx. f/u in 2 weeks [id number]
[2017-05-19] MEDS: FERROUS SO4 325 MG TABLET (FP) PO SCH (09:37)
[2017-05-19] MEDS: FLUTICASONE/SALMETEROL 100 MCG/50 MCG DISKUS IH SCH ×2 (09:37→22:44)
[2017-05-19] MEDS: FOLIC ACID 1 MG TABLET (FP) PO SCH (09:38)
[2017-05-19] MEDS: DULoxetine HCL 30 MG CAPSULE.DR (FP) PO SCH (09:38)
[2017-05-19] MEDS: ASCORBIC ACID 500 MG TABLET (FP) PO SCH (09:38)
[2017-05-19] MEDS: METOPROLOL TARTRATE 50 MG TABLET (FP) PO SCH ×2 (09:38→22:45)
[2017-05-19] MEDS: SENNOSIDES 8.6MG TABLET (FP) PO SCH ×2 (09:38→22:45)
[2017-05-19] MEDS: PANTOPRAZOLE 20 MG TABLET (FP) PO SCH (09:38)
--- NOTE | 2017-05-19 11:52 | PN ---
Progress Note, Physician Chief Complaint: Not in distress POD #1 Hemodynamically stable History of Present Illness: Patient was seen and examined. Awake and alert. Chart was reviewed Denies chest pain, SOB or palpitations - Current Medication List Current Medications: Active Medications Acetaminophen (Tylenol -) 650 mg PO Q4H PRN PRN Reason: FEVER OR PAIN Acetaminophen (Tylenol -) 325 mg PO Q4H PRN PRN Reason: PAIN Al Hydroxide/Mg Hydroxide (Mylanta Oral Suspension -) 30 ml PO Q4H PRN PRN Reason: dyspepsia/abdominal discomfort Albuterol/Ipratropium (Duoneb -) 1 amp NEB Q4H PRN PRN Reason: SHORTNESS OF BREATH Ascorbic Acid (Vitamin C -) 500 mg PO DAILY [facility] Last Admin: 05/19/17 09:38 Dose: 500 mg Bisacodyl (Dulcolax Suppository -) 10 mg RC DAILY PRN PRN Reason: CONSTIPATION Diltiazem HCl (Cardizem Cd -) 240 mg PO DAILY [facility] Last Admin: 05/19/17 09:39 Dose: 240 mg Diphenhydramine HCl (Benadryl -) 25 mg PO Q4H PRN Docusate Sodium (Colace -) 100 mg PO TID [facility] Last Admin: 05/19/17 06:13 Dose: 100 mg Duloxetine HCl (Cymbalta -) 30 mg PO DAILY [facility] Last Admin: 05/19/17 09:38 Dose: 30 mg Ferrous Sulfate (Feosol -) 325 mg PO DAILY [facility] Last Admin: 05/19/17 09:37 Dose: 325 mg Folic Acid (Folic Acid -) 1 mg PO DAILY [facility] Last Admin: 05/19/17 09:38 Dose: 1 mg Heparin Sodium (Porcine) (Heparin -) 5,000 unit SQ TID [facility] Hydromorphone HCl (Dilaudid -) 2 mg PO Q4H PRN PRN Reason: PAIN Melatonin (Melatonin) 3 mg PO HS [facility] Last Admin: 05/18/17 21:46 Dose: 3 mg Metoprolol Tartrate (Lopressor -) 50 mg PO BID [facility] Last Admin: 05/19/17 09:38 Dose: 50 mg Montelukast Sodium (Singulair -) 10 mg PO HS [facility] Last Admin: 05/18/17 21:45 Dose: 10 mg Ondansetron HCl (Zofran Injection) 4 mg IVPB Q6H PRN PRN Reason: NAUSEA Oxycodone HCl (Roxicodone -) 5 mg PO Q4H PRN PRN Reason: MILD PAIN Pantoprazole Sodium (Protonix -) 20 mg PO DAILY [facility] Last Admin: 05/19/17 09:38 Dose: 20 mg Polyethylene Glycol (Miralax (For Daily Use) -) 17 gm PO DAILY PRN PRN Reason: CONSTIPATION Pregabalin (Lyrica -) 150 mg PO TID [facility] Last Admin: 05/19/17 06:13 Dose: 150 mg Fluticasone/Salmeterol (Advair 100mcg/50mcg -) 1 puff IH BID [facility] Last Admin: 05/19/17 09:37 Dose: 1 puff Senna (Senna -) 2 tab PO BID [facility] Last Admin: 05/19/17 09:38 Dose: 2 tab - Objective Vital Signs: Vital Signs Temperature 98.3 F 05/19/17 09:28 Pulse Rate 85 05/19/17 09:28 Respiratory Rate 18 05/19/17 09:28 Blood Pressure 114/75 05/19/17 09:28 O2 Sat by Pulse Oximetry (%) 99 05/19/17 10:00 Neck: Yes: Supple Cardiovascular: Yes: Regular Rate and Rhythm, S1, S2 Respiratory: Yes: CTA Bilaterally Gastrointestinal: Yes: Normal Bowel Sounds, Soft, Abdomen, Obese. No: Tenderness Edema: No Labs: CBC, BMP 05/17/17 06:50 05/17/17 06:50 INR, PTT INR 1.31 (0.82-1.09) H 05/18/17 06:30 Problem List - Problems (1) COPD (chronic obstructive pulmonary disease) Code(s): J44.9 - CHRONIC OBSTRUCTIVE PULMONARY DISEASE, UNSPECIFIED Qualifiers : COPD type: unspecified COPD Qualified Code(s): J44.9 - Chronic obstructive pulmonary disease, unspecified (2) Cholecystectomy planned Code(s): [id number] - (3) Anemia Code(s): D64.9 - ANEMIA, UNSPECIFIED Qualifiers: Anemia type: iron deficiency (4) Atrial fibrillation Code(s): I48.91 - UNSPECIFIED ATRIAL FIBRILLATION Qualifiers: Atrial fibrillation type: paroxysmal Qualified Code(s): I48.0 - Paroxysmal atrial fibrillation (5) MSSA (methicillin susceptible Staphylococcus aureus) septicemia Code(s): A41.01 - SEPSIS DUE TO METHICILLIN SUSCEPTIBLE STAPHYLOCOCCUS AUREUS (6) HTN (hypertension) Code(s): I10 - ESSENTIAL (PRIMARY) HYPERTENSION Qualifiers: Hypertension type: essential hypertension Qualified Code(s): I10 - Essential (primary) hypertension (7) Discitis Code(s): M46.40 - DISCITIS, UNSPECIFIED, SITE UNSPECIFIED (8) Spinal abscess Code(s): M46.20 - OSTEOMYELITIS OF VERTEBRA, SITE UNSPECIFIED Assessment/Plan 1. Post lap cholecystectomy - history of cholecystitis - clinically stable 2. Paroxysmal atrial fibrillation remains in sinus rhythm, [id number] score of 3 3. HTN 4. History of discitis/para-spinal abscess 5. COPD PLAN: 1. Restart anticoagulation when cleared by surgery. Restart Eliquis 2. Continue Lopressor and Cardizem 3. Continue remainder of medications 4. Await transfer to rehab for further physical therapy Jaquan Calvert MD
--- NOTE | 2017-05-19 12:23 | PATH ---
Surgical Pathology Report Patient Name: BRUNILDA GIBSON Med. Rec. #: [id number] /Age/Gender: 1940 (Age: 77) / M Account: [id number] Location: [address] [place] [address]/[facility] Taken: 05/18/2017 Received: 05/18/2017 Reported: 05/19/2017 Physicians: Nikita Sanchez M.D. Specimen(s) Received GALLBLADDER Clinical History Acute cholecystitis Final Diagnosis GALLBLADDER, CHOLECYSTECTOMY: ACUTE AND CHRONIC CHOLECYSTITIS AND CHOLELITHIASIS. Electronically Signed Guanako Zhang M.D. Gross Description Received in formalin, labeled "gallbladder," is a 7.0 x 2.5 x 2.2 cm. gallbladder with a 0.2 cm. in length portion of cystic duct attached. The outer surface is moon-pink with focal defects and varies from smooth to shaggy. The lumen contains red-brown blood clot as well as a 1.3 cm in greatest dimension black, irregular cholelith. The mucosa is moon and velvety. The wall of the gallbladder displays focal possible fat necrosis and ranges from 0.1-0.8 cm. in thickness. Center Punch Operator sections are submitted in one cassette. 05/18/201705/18/2017
[2017-05-19] MEDS ORDERED: SODIUM CHLORIDE 250 ML IV STA (13:59)
--- NOTE | 2017-05-19 14:07 | RAPID ---
Physical Examination Vital Signs: Vital Signs Temperature 98.3 F 05/19/17 09:28 Pulse Rate 85 05/19/17 09:28 Respiratory Rate 18 05/19/17 09:28 Blood Pressure 114/75 05/19/17 09:28 O2 Sat by Pulse Oximetry (%) 99 05/19/17 10:00 Labs: CBC, BMP 05/17/17 06:50 05/17/17 06:50 Rapid Response - Rapid Response Assessment: While sitting at the nurses station, responded to a code 99 Patient in bed, pallorous, awake but lethargic responsive, not confused, no facial droop noted Family at bedside Lungs clear anteriorly Spoke with Dr. Morrow, seen by Dr. Galeano this morning Ordered the following: head ct ekg transfer to tele cbc, cmp, lactic acid NS 500cc bolus x 1 blood cultures Monitor patient on tele
[2017-05-19] MEDS: HEPARIN NA (PORCINE) 5,000 UNITS/ML 1ML VIAL SQ SCH ×2 (14:29→22:45)
[2017-05-19 15:11] LABS: BASOPHIL 0.3 % (0-2.0); EOSINOPHIL 1.7 % (0-4.5); MCHC 32.7 g/dl (32.0-35.9); MEAN CELL VOLUME 88.6 fl (80-96); MEAN PLT VOLUME 8.3 fl (7.5-11.1); NEUTROPHILS 77.5 % (42.8-82.8); PLATELET COUNT 439 K/MM3 (134-434); RDW 15.4 % (11.9-15.9); WHITE BLOOD COUNT 8.6 K/mm3 (4.0-10.0)
[2017-05-19 15:44] LABS: ALBUMIN 2.2 g/dl (3.4-5.0); ANION GAP 9 (8-16); BILIRUBIN,TOTAL 0.3 mg/dL (0.2-1.0); CO2 28 mmol/L (21-32); CREATININE 0.8 mg/dL (0.7-1.3); GLUCOSE,RANDOM 106 mg/dL (74-106); SGOT/AST 19 U/L (15-37); SGPT/ALT 19 U/L (12-78); TOT PROT 6.5 g/dl (6.4-8.2)
--- NOTE | 2017-05-19 15:44 | EKG ---
Test Reason : Blood Pressure : / mmHG Vent. Rate : 066 BPM Atrial Rate : 066 BPM P-R Int : 210 ms QRS Dur : 096 ms QT Int : 450 ms P-R-T Axes : 008 -21 -19 degrees QTc Int : 471 ms SINUS RHYTHM WITH 1ST DEGREE A-V BLOCK MODERATE VOLTAGE CRITERIA FOR LVH, MAY BE NORMAL VARIANT NONSPECIFIC T WAVE ABNORMALITY PROLONGED QT ABNORMAL ECG WHEN COMPARED WITH ECG OF 16-MAY-2017 12:30, CA INTERVAL HAS INCREASED T WAVE INVERSION NOW EVIDENT IN ANTERIOR LEADS Confirmed by DARIUS REYNA MD ([id number]) on 05/19/2017 3:43:51 PM Referred By: BANDAR VELAZCO Confirmed By:DARIUS REYNA MD
[2017-05-19 15:46] LABS: ALK PHOS 97 U/L (45-117); TROPONIN I < 0.02 ng/ml (0.00-0.05)
[2017-05-19] MEDS ORDERED: DEXTROSE 5%-0.45% SALINE 1,000 ML IV SCH (20:00)
[2017-05-19] MEDS ORDERED: PT OWN MED DRAWER 7, Y5N ONE ×2 (22:32→22:51)
[2017-05-19] MEDS: MELATONIN 1 MG TABLET PO SCH (22:46)
[2017-05-19] MEDS: MONTELUKAST NA 10 MG TABLET PO SCH (23:08)
[2017-05-20] MEDS: HEPARIN NA (PORCINE) 5,000 UNITS/ML 1ML VIAL SQ SCH (06:08)
[2017-05-20] MEDS: PREGABALIN 75 MG CAPSULE PO SCH ×3 (06:08→21:43)
[2017-05-20] MEDS: DOCUSATE SODIUM 100 MG CAPSULE (FP) PO SCH ×3 (06:08→21:44)
[2017-05-20 07:20] LABS: BASOPHIL 0.3 % (0-2.0); EOSINOPHIL 3.8 % (0-4.5); MCH 28.1 pg (25.7-33.7); MCHC 31.5 g/dl (32.0-35.9); MEAN CELL VOLUME 89.4 fl (80-96); MEAN PLT VOLUME 8.1 fl (7.5-11.1); NEUTROPHILS 69.7 % (42.8-82.8); PLATELET COUNT 362 K/MM3 (134-434); RDW 15.2 % (11.9-15.9); WHITE BLOOD COUNT 7.2 K/mm3 (4.0-10.0)
[2017-05-20 07:42] LABS: ANION GAP 7 (8-16); CALCIUM 8.8 mg/dL (8.5-10.1); CO2 31 mmol/L (21-32); CREATININE 0.7 mg/dL (0.7-1.3); GLUCOSE,RANDOM 84 mg/dL (74-106); MAGNESIUM 1.9 mg/dL (1.8-2.4)
[2017-05-20] MEDS ORDERED: PT OWN MED DRAWER 7, Y5N ONE (09:27)
[2017-05-20] MEDS: FLUTICASONE/SALMETEROL 100 MCG/50 MCG DISKUS IH SCH ×2 (10:13→21:43)
[2017-05-20] MEDS: PANTOPRAZOLE 20 MG TABLET (FP) PO SCH (10:15)
[2017-05-20] MEDS: ASCORBIC ACID 500 MG TABLET (FP) PO SCH ×2 (10:15→21:43)
[2017-05-20] MEDS: FOLIC ACID 1 MG TABLET (FP) PO SCH (10:15)
[2017-05-20] MEDS: METOPROLOL TARTRATE 50 MG TABLET (FP) PO SCH ×2 (10:16→21:48)
[2017-05-20] MEDS: DULoxetine HCL 30 MG CAPSULE.DR (FP) PO SCH (10:17)
[2017-05-20] MEDS: SENNOSIDES 8.6MG TABLET (FP) PO SCH ×2 (10:17→21:44)
[2017-05-20] MEDS: FERROUS SO4 325 MG TABLET (FP) PO SCH ×2 (10:18→18:09)
--- NOTE | 2017-05-20 10:57 | PN ---
Progress Note, Physician Chief Complaint: Not in distress this am Events noted Moved to telemetry after syncopal episode yesterday History of Present Illness: Patient was seen and examined. Awake and alert. Chart was reviewed Denies chest pain, SOB or palpitations Appears comfortable. No further events noted - Current Medication List Current Medications: Active Medications Acetaminophen (Tylenol -) 325 mg PO Q4H PRN PRN Reason: PAIN Al Hydroxide/Mg Hydroxide (Mylanta Oral Suspension -) 30 ml PO Q4H PRN PRN Reason: dyspepsia/abdominal discomfort Albuterol/Ipratropium (Duoneb -) 1 amp NEB Q4H PRN PRN Reason: SHORTNESS OF BREATH Apixaban (Eliquis -) 5 mg PO BID [facility] Ascorbic Acid (Vitamin C -) 500 mg PO DAILY [facility] Last Admin: 05/20/17 10:15 Dose: 500 mg Bisacodyl (Dulcolax Suppository -) 10 mg RC DAILY PRN PRN Reason: CONSTIPATION Docusate Sodium (Colace -) 100 mg PO TID [facility] Last Admin: 05/20/17 06:08 Dose: 100 mg Duloxetine HCl (Cymbalta -) 30 mg PO DAILY [facility] Last Admin: 05/20/17 10:17 Dose: 30 mg Ferrous Sulfate (Feosol -) 325 mg PO BIDWM [facility] Folic Acid (Folic Acid -) 1 mg PO DAILY [facility] Last Admin: 05/20/17 10:15 Dose: 1 mg Melatonin (Melatonin) 3 mg PO [facility] Last Admin: 05/19/17 22:46 Dose: 3 mg Metoprolol Tartrate (Lopressor -) 50 mg PO BID [facility] Last Admin: 05/20/17 10:16 Dose: 50 mg Montelukast Sodium (Singulair -) 10 mg PO HS [facility] Last Admin: 05/19/17 23:08 Dose: 10 mg Oxycodone HCl (Roxicodone -) 5 mg PO Q4H PRN PRN Reason: MILD PAIN Pantoprazole Sodium (Protonix -) 20 mg PO DAILY [facility] Last Admin: 05/20/17 10:15 Dose: 20 mg Polyethylene Glycol (Miralax (For Daily Use) -) 17 gm PO DAILY PRN PRN Reason: CONSTIPATION Pregabalin (Lyrica -) 150 mg PO TID [facility] Last Admin: 05/20/17 06:08 Dose: 150 mg Fluticasone/Salmeterol (Advair 100mcg/50mcg -) 1 puff IH BID [facility] Last Admin: 05/20/17 10:13 Dose: 1 puff Senna (Senna -) 2 tab PO BID [facility] Last Admin: 05/20/17 10:17 Dose: 2 tab - Objective Vital Signs: Vital Signs Temperature 98.1 F 05/20/17 06:00 Pulse Rate 80 05/20/17 06:00 Respiratory Rate 16 05/20/17 06:00 Blood Pressure 103/66 05/20/17 06:00 O2 Sat by Pulse Oximetry (%) 93 L 05/19/17 21:00 HENT: Yes: Atraumatic Neck: Yes: Supple Cardiovascular: Yes: Regular Rate and Rhythm, S1, S2 Respiratory: Yes: CTA Bilaterally Gastrointestinal: Yes: Normal Bowel Sounds, Soft. No: Tenderness Edema: No Additional Findings/Remarks: Review of Systems Constitutional: denies: Chills, fever Cardiovascular: denies: chest pain, SOB, palpitations Respiratory: denies: Cough or Sputum Production Gastrointestinal: denies: Nausea, Vomiting, Diarrhea, Constipation or Abdominal Pain Musculoskeletal: reports: joint pains Neurological: denies: Dizziness or Headache Labs: CBC, BMP 05/20/17 07:00 05/20/17 07:00 - ....Imaging Chest X-ray: Report Reviewed (Unremarkable) Cat Scan: Report Reviewed (Head CT unremarkable) Problem List - Problems (1) COPD (chronic obstructive pulmonary disease) Code(s): J44.9 - CHRONIC OBSTRUCTIVE PULMONARY DISEASE, UNSPECIFIED Qualifiers : COPD type: unspecified COPD Qualified Code(s): J44.9 - Chronic obstructive pulmonary disease, unspecified (2) Cholecystectomy planned Code(s): [id number] - (3) Anemia Code(s): D64.9 - ANEMIA, UNSPECIFIED Qualifiers: Anemia type: iron deficiency (4) Atrial fibrillation Code(s): I48.91 - UNSPECIFIED ATRIAL FIBRILLATION Qualifiers: Atrial fibrillation type: paroxysmal Qualified Code(s): I48.0 - Paroxysmal atrial fibrillation (5) MSSA (methicillin susceptible Staphylococcus aureus) septicemia Code(s): A41.01 - SEPSIS DUE TO METHICILLIN SUSCEPTIBLE STAPHYLOCOCCUS AUREUS (6) HTN (hypertension) Code(s): I10 - ESSENTIAL (PRIMARY) HYPERTENSION Qualifiers: Hypertension type: essential hypertension Qualified Code(s): I10 - Essential (primary) hypertension (7) Discitis Code(s): M46.40 - DISCITIS, UNSPECIFIED, SITE UNSPECIFIED (8) Spinal abscess Code(s): M46.20 - OSTEOMYELITIS OF VERTEBRA, SITE UNSPECIFIED Assessment/Plan 1. Post lap cholecystectomy - history of cholecystitis - clinically stable 2. Syncope - likely vasovagal, medication 3. Paroxysmal atrial fibrillation remains in sinus rhythm, [id number] score of 3 4. HTN 5. History of discitis/para-spinal abscess 6. COPD PLAN: 1. Restart anticoagulation today (Eliquis) 2. Continue Lopressor with caution. Cardizem stopped 3. Continue remainder of medications 4. Await transfer to rehab ([place]) for further physical therapy and cleared cardiac standpoint Jaquan Calvert MD
--- NOTE | 2017-05-20 17:01 | PN ---
Progress Note (short form) - Note Progress Note: Anesthesia postop note 77 y/o M s/p GA for laparoscopic cholecystecomy POD#1, vss, aaox3, pain well controlled, syncopal episode yesterday, work up negative, most likely vaso vagal, patient to be discharged to [place] [facility] when bed becomes available. No anesthesia complications.
--- NOTE | 2017-05-20 18:29 | PN ---
Progress Note, Physician Chief Complaint: He's not feeling dizzy today and had a good breakfast. History of Present Illness: Patient had a laparoscopic cholecystectomy this Tuesday and tolerated the procedure well. Yesterday he had a near syncopal event and was transferred to telemetry to be monitored. No further event occurred. Emergency testing and CAT scan were done and showed no acute findings. His blood pressure has been borderline systolic and his hemoglobin has slightly drifted down to 9.1. He had also been on both Cardizem CD 240 and metoprolol. Today I decided to increase his FeSO4 to twice a day and stop his Cardizem. He was to go to [facility] today but they did not have the bed for transfer and will probably not be going until Tuesday. I am certain he will be disappointed. We'll followup CBC in a.m. and follow blood pressure. - Current Medication List Current Medications: Active Medications Acetaminophen (Tylenol -) 325 mg PO Q4H PRN PRN Reason: PAIN Al Hydroxide/Mg Hydroxide (Mylanta Oral Suspension -) 30 ml PO Q4H PRN PRN Reason: dyspepsia/abdominal discomfort Albuterol/Ipratropium (Duoneb -) 1 amp NEB Q4H PRN PRN Reason: SHORTNESS OF BREATH Apixaban (Eliquis -) 5 mg PO BID [facility] Ascorbic Acid (Vitamin C -) 500 mg PO DAILY [facility] Last Admin: 05/20/17 10:15 Dose: 500 mg Bisacodyl (Dulcolax Suppository -) 10 mg RC DAILY PRN PRN Reason: CONSTIPATION Docusate Sodium (Colace -) 100 mg PO TID [facility] Last Admin: 05/20/17 13:51 Dose: 100 mg Duloxetine HCl (Cymbalta -) 30 mg PO DAILY [facility] Last Admin: 05/20/17 10:17 Dose: 30 mg Ferrous Sulfate (Feosol -) 325 mg PO BIDWM [facility] Last Admin: 05/20/17 18:09 Dose: 325 mg Folic Acid (Folic Acid -) 1 mg PO DAILY [facility] Last Admin: 05/20/17 10:15 Dose: 1 mg Melatonin (Melatonin) 3 mg PO HS [facility] Last Admin: 05/19/17 22:46 Dose: 3 mg Metoprolol Tartrate (Lopressor -) 50 mg PO BID [facility] Last Admin: 05/20/17 10:16 Dose: 50 mg Montelukast Sodium (Singulair -) 10 mg PO HS [facility] Last Admin: 05/19/17 23:08 Dose: 10 mg Oxycodone HCl (Roxicodone -) 5 mg PO Q4H PRN PRN Reason: MILD PAIN Pantoprazole Sodium (Protonix -) 20 mg PO DAILY [facility] Last Admin: 05/20/17 10:15 Dose: 20 mg Polyethylene Glycol (Miralax (For Daily Use) -) 17 gm PO DAILY PRN PRN Reason: CONSTIPATION Pregabalin (Lyrica -) 150 mg PO TID [facility] Last Admin: 05/20/17 13:51 Dose: 150 mg Fluticasone/Salmeterol (Advair 100mcg/50mcg -) 1 puff IH BID [facility] Last Admin: 05/20/17 10:13 Dose: 1 puff Senna (Senna -) 2 tab PO BID [facility] Last Admin: 05/20/17 10:17 Dose: 2 tab - Objective Vital Signs: Vital Signs Temperature 98 F 05/20/17 17:56 Pulse Rate 94 H 05/20/17 17:56 Respiratory Rate 20 05/20/17 17:56 Blood Pressure 117/70 05/20/17 17:56 O2 Sat by Pulse Oximetry (%) 92 L 05/20/17 11:10 Constitutional: Yes: Calm, Pallor Eyes: Yes: Conjunctiva Clear Cardiovascular: Yes: Regular Rate and Rhythm Respiratory: Yes: Diminished, Rhonchi (few rhonchi at bases) Gastrointestinal: Yes: Normal Bowel Sounds, Soft. No: Tenderness Genitourinary: No: Fragoso Present Edema: No Wound/Incision: Yes: Clean/Dry, Open to air Neurological: Yes: Alert, Oriented Labs: CBC, BMP 05/20/17 07:00 05/20/17 07:00 INR, PTT INR 1.31 (0.82-1.09) H 05/18/17 06:30 Problem List - Problems (1) S/P laparoscopic cholecystectomy Assessment/Plan: tolerated procedure well Abdomen soft, normal bowel sounds. Tolerated diet well Code(s): Z90.49 - ACQUIRED ABSENCE OF OTHER SPECIFIED PARTS OF DIGESTIVE TRACT (2) Syncope Assessment/Plan: occurred yesterday probably related to relative hypotension from medication and development of mild anemia. Testing normal. Much improved today Code(s): R55 - SYNCOPE AND COLLAPSE (3) HTN (hypertension) Assessment/Plan: stable currently even without Cardizem CD 240. Code(s): I10 - ESSENTIAL (PRIMARY) HYPERTENSION Qualifiers: Hypertension type: essential hypertension Qualified Code(s): I10 - Essential (primary) hypertension (4) Discitis Assessment/Plan: treated for 8 weeks with intravenous antibiotics. Code(s): M46.40 - DISCITIS, UNSPECIFIED, SITE UNSPECIFIED (5) Spinal abscess Code(s): M46.20 - OSTEOMYELITIS OF VERTEBRA, SITE UNSPECIFIED (6) Atrial fibrillation Assessment/Plan: on Eliquis Code(s): I48.91 - UNSPECIFIED ATRIAL FIBRILLATION Qualifiers: Atrial fibrillation type: paroxysmal Qualified Code(s): I48.0 - Paroxysmal atrial fibrillation (7) Pain Assessment/Plan: manageable and not severe Code(s): R52 - PAIN, UNSPECIFIED (8) Thoracic aortic aneurysm without rupture Assessment/Plan: followup as outpatient Code(s): I71.2 - THORACIC AORTIC ANEURYSM, WITHOUT RUPTURE (9) Anemia Assessment/Plan: hemoglobin 9.1. Will increase iron to twice a day with vitamin C. Code(s): D64.9 - ANEMIA, UNSPECIFIED Qualifiers: Anemia type: iron deficiency
[2017-05-20] MEDS: APIXABAN 5 MG TABLET PO SCH (21:43)
[2017-05-20] MEDS: MONTELUKAST NA 10 MG TABLET PO SCH (21:43)
[2017-05-20] MEDS: MELATONIN 1 MG TABLET PO SCH (21:44)
[2017-05-21] MEDS: DOCUSATE SODIUM 100 MG CAPSULE (FP) PO SCH ×3 (06:49→21:46)
[2017-05-21] MEDS: PREGABALIN 75 MG CAPSULE PO SCH ×3 (06:49→23:00)
[2017-05-21 07:09] LABS: BASOPHIL 0.7 % (0-2.0); EOSINOPHIL 3.9 % (0-4.5); MCH 28.7 pg (25.7-33.7); MCHC 32.5 g/dl (32.0-35.9); MEAN CELL VOLUME 88.1 fl (80-96); MEAN PLT VOLUME 7.6 fl (7.5-11.1); NEUTROPHILS 72.2 % (42.8-82.8); PLATELET COUNT 411 K/MM3 (134-434); RDW 15.5 % (11.9-15.9); WHITE BLOOD COUNT 8.2 K/mm3 (4.0-10.0)
--- NOTE | 2017-05-21 08:36 | PN ---
Progress Note (short form) - Note Progress Note: PATIENT IN BED / NO DISTRESS / NO CP / NO SOB. S/P CHOLECYSTECTOMY / POST OP SYNCOPE. PRIOR HY WITH SPINAL ABSCESS / DISCITIS WITH IMPAIRED AMBULATION AWAITING [facility] FOR CONTINUED REHAB. Selected Entries 05/21/17 06:52 Temperature 97.9 F Pulse Rate 96 H Respiratory 18 Rate Blood Pressure 142/89 Laboratory Tests 05/20/17 05/21/17 07:00 06:00 WBC 8.2 RBC 3.59 L Hgb 10.3 L D Hct 31.7 L Plt Count 411 Sodium 139 Potassium 4.0 Chloride 101 Carbon Dioxide 31 Anion Gap 7 L BUN 13 D Creatinine 0.7 Random Glucose 84 D Calcium 8.8 Magnesium 1.9 P/E <> AWAKE / ALERT / ORIENTED X 3 HEENT <>NECK SUPPLE / CAROTIDS 2 + COR <> S 1 S 2 NO M / NO G . CHEST <> FEW SCATTERED RHONCHI AT BASES. ABD <> SOFT / NONTENDER. EXT <>NO CALF TENDERNESS / NO EDEMA IMP <> S/P LAP CHOLECYSTECTOMY POST OP SYNCOPE A. FIB HTN HY OF SPINAL ABSCESS / DISCITIS. THORACIC AORTA ANEURYSM. PLAN <> STABLE PT RX [facility]. SAME CARDIAC MEDS . CONTINUE ELIQUIS FOR A/C . FOLLOW CBC WITH HY OF ANEMIA.
[2017-05-21] MEDS ORDERED: PT OWN MED DRAWER 7, Y5N ONE ×3 (08:56→22:58)
[2017-05-21] MEDS: FERROUS SO4 325 MG TABLET (FP) PO SCH ×2 (09:00→17:46)
[2017-05-21] MEDS: APIXABAN 5 MG TABLET PO SCH ×2 (09:00→23:00)
[2017-05-21] MEDS: DULoxetine HCL 30 MG CAPSULE.DR (FP) PO SCH (09:00)
[2017-05-21] MEDS: FOLIC ACID 1 MG TABLET (FP) PO SCH (09:01)
[2017-05-21] MEDS: SENNOSIDES 8.6MG TABLET (FP) PO SCH ×2 (09:01→23:02)
[2017-05-21] MEDS: METOPROLOL TARTRATE 50 MG TABLET (FP) PO SCH ×3 (09:01→23:00)
[2017-05-21] MEDS: FLUTICASONE/SALMETEROL 100 MCG/50 MCG DISKUS IH SCH ×2 (09:02→22:59)
[2017-05-21] MEDS: ASCORBIC ACID 500 MG TABLET (FP) PO SCH ×2 (09:02→23:00)
[2017-05-21] MEDS: PANTOPRAZOLE 20 MG TABLET (FP) PO SCH (09:05)
--- NOTE | 2017-05-21 10:52 | PN ---
Progress Note, Physician Chief Complaint: Not in distress this am No further events History of Present Illness: Patient was seen and examined. Awake and alert. Chart was reviewed Denies chest pain, SOB or palpitations Appears comfortable. - Current Medication List Current Medications: Active Medications Acetaminophen (Tylenol -) 325 mg PO Q4H PRN PRN Reason: PAIN Al Hydroxide/Mg Hydroxide (Mylanta Oral Suspension -) 30 ml PO Q4H PRN PRN Reason: dyspepsia/abdominal discomfort Albuterol/Ipratropium (Duoneb -) 1 amp NEB Q4H PRN PRN Reason: SHORTNESS OF BREATH Apixaban (Eliquis -) 5 mg PO BID [facility] Last Admin: 05/21/17 09:00 Dose: 5 mg Ascorbic Acid (Vitamin C -) 500 mg PO BID [facility] Last Admin: 05/21/17 09:02 Dose: 500 mg Bisacodyl (Dulcolax Suppository -) 10 mg RC DAILY PRN PRN Reason: CONSTIPATION Docusate Sodium (Colace -) 100 mg PO TID [facility] Last Admin: 05/21/17 06:49 Dose: 100 mg Duloxetine HCl (Cymbalta -) 30 mg PO DAILY [facility] Last Admin: 05/21/17 09:00 Dose: 30 mg Ferrous Sulfate (Feosol -) 325 mg PO BIDWM [facility] Last Admin: 05/21/17 09:00 Dose: 325 mg Folic Acid (Folic Acid -) 1 mg PO DAILY [facility] Last Admin: 05/21/17 09:01 Dose: 1 mg Melatonin (Melatonin) 3 mg PO [facility] Last Admin: 05/20/17 21:44 Dose: 3 mg Metoprolol Tartrate (Lopressor -) 50 mg PO BID [facility] Last Admin: 05/21/17 09:01 Dose: 50 mg Montelukast Sodium (Singulair -) 10 mg PO [facility] Last Admin: 05/20/17 21:43 Dose: 10 mg Oxycodone HCl (Roxicodone -) 5 mg PO Q4H PRN PRN Reason: MILD PAIN Pantoprazole Sodium (Protonix -) 20 mg PO DAILY [facility] Last Admin: 05/21/17 09:05 Dose: 20 mg Polyethylene Glycol (Miralax (For Daily Use) -) 17 gm PO DAILY PRN PRN Reason: CONSTIPATION Pregabalin (Lyrica -) 150 mg PO TID [facility] Last Admin: 05/21/17 06:49 Dose: 150 mg Fluticasone/Salmeterol (Advair 100mcg/50mcg -) 1 puff IH BID [facility] Last Admin: 05/21/17 09:02 Dose: 1 puff Senna (Senna -) 2 tab PO BID [facility] Last Admin: 05/21/17 09:01 Dose: 2 tab - Objective Vital Signs: Vital Signs Temperature 97.9 F 05/21/17 06:52 Pulse Rate 101 H 05/21/17 10:00 Respiratory Rate 16 05/21/17 10:00 Blood Pressure 143/83 05/21/17 10:00 O2 Sat by Pulse Oximetry (%) 94 L 05/21/17 08:43 Neck: Yes: Supple Cardiovascular: Yes: Regular Rate and Rhythm, Tachycardia, S1, S2 Respiratory: Yes: CTA Bilaterally Gastrointestinal: Yes: Normal Bowel Sounds, Soft. No: Tenderness Edema: No Additional Findings/Remarks: Review of Systems Constitutional: denies: Chills, fever Cardiovascular: denies: chest pain, SOB, palpitations Respiratory: denies: Cough or Sputum Production Gastrointestinal: denies: Nausea, Vomiting, Diarrhea, Constipation or Abdominal Pain Musculoskeletal: reports: joint pains Neurological: denies: Dizziness or Headache Labs: CBC, BMP 05/21/17 06:00 05/20/17 07:00 Problem List - Problems (1) COPD (chronic obstructive pulmonary disease) Code(s): J44.9 - CHRONIC OBSTRUCTIVE PULMONARY DISEASE, UNSPECIFIED Qualifiers : COPD type: unspecified COPD Qualified Code(s): J44.9 - Chronic obstructive pulmonary disease, unspecified (2) Anemia Code(s): D64.9 - ANEMIA, UNSPECIFIED Qualifiers: Anemia type: iron deficiency (3) Atrial fibrillation Code(s): I48.91 - UNSPECIFIED ATRIAL FIBRILLATION Qualifiers: Atrial fibrillation type: paroxysmal Qualified Code(s): I48.0 - Paroxysmal atrial fibrillation (4) MSSA (methicillin susceptible Staphylococcus aureus) septicemia Code(s): A41.01 - SEPSIS DUE TO METHICILLIN SUSCEPTIBLE STAPHYLOCOCCUS AUREUS (5) HTN (hypertension) Code(s): I10 - ESSENTIAL (PRIMARY) HYPERTENSION Qualifiers: Hypertension type: essential hypertension Qualified Code(s): I10 - Essential (primary) hypertension (6) Discitis Code(s): M46.40 - DISCITIS, UNSPECIFIED, SITE UNSPECIFIED (7) Spinal abscess Code(s): M46.20 - OSTEOMYELITIS OF VERTEBRA, SITE UNSPECIFIED Assessment/Plan 1. Post lap cholecystectomy - history of cholecystitis - clinically stable 2. Syncope - likely vasovagal and medication induced 3. Paroxysmal atrial fibrillation remains in sinus rhythm, [id number] score of 3 4. HTN 5. History of discitis/para-spinal abscess 6. COPD PLAN: 1. Restart anticoagulation today (Eliquis) 2. Continue Lopressor with caution and uptitrate. Cardizem stopped 3. Continue remainder of medications 4. Await transfer to rehab ([place]) for further physical therapy and cleared cardiac standpoint Jaquan Calvert MD
[2017-05-21] MEDS: MELATONIN 1 MG TABLET PO SCH (22:59)
[2017-05-21] MEDS: MONTELUKAST NA 10 MG TABLET PO SCH (23:00)
[2017-05-22] MEDS: DOCUSATE SODIUM 100 MG CAPSULE (FP) PO SCH ×3 (05:34→22:53)
[2017-05-22] MEDS: METOPROLOL TARTRATE 50 MG TABLET (FP) PO SCH ×3 (05:56→22:54)
[2017-05-22] MEDS: PREGABALIN 75 MG CAPSULE PO SCH ×3 (05:56→22:53)
--- NOTE | 2017-05-22 07:59 | PN ---
Progress Note (short form) - Note Progress Note: PATIENT REMAINS COMFORTABLE / PATIENT WITH NO COMPLAINTS OF CP / SOB. NO FURTHER SYNCOPAL EPISODES . AWAITING REHAB TRANSFER TO [place]. Selected Entries Laboratory Tests Selected Entries 05/22/17 05:55 Temperature 97.6 F Pulse Rate 82 Respiratory 20 Rate Blood Pressure 139/83 P/E <> ALERT / NO DISTRESS. HEENT <>NECK SUPPLE / CAROTIDS 2 + COR <> S 1 S 2 NO M / NO G . CHEST <> CLEAR P & A ABD > SOFT / NONTENDER / NO REBOUND / NO GUARDING. EXT <>NO CALF TENDERNESS / NO EDEMA IMP <> S/P LAP CHOLECYSTECTOMY POST OP SYNCOPE A. FIB HTN HY OF SPINAL ABSCESS / DISCITIS. THORACIC AORTA ANEURYSM. PLAN <> CONTINUE SAME MEDS. AWAIT TRANSFER TO [facility]. CARDIAC STABLE / CONTINUE SAME MEDS. 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 ELIQUIS FOR A/C WITH AFIB HY. CBC STABLE / CONTINUE TO MONITOR.
[2017-05-22] MEDS ORDERED: PT OWN MED DRAWER 7, Y5N ONE ×3 (09:29→22:43)
[2017-05-22] MEDS: FOLIC ACID 1 MG TABLET (FP) PO SCH (09:34)
[2017-05-22] MEDS: PANTOPRAZOLE 20 MG TABLET (FP) PO SCH (09:34)
[2017-05-22] MEDS: APIXABAN 5 MG TABLET PO SCH ×2 (09:34→22:53)
[2017-05-22] MEDS: FERROUS SO4 325 MG TABLET (FP) PO SCH ×2 (09:34→17:16)
[2017-05-22] MEDS: ASCORBIC ACID 500 MG TABLET (FP) PO SCH ×2 (09:34→22:53)
[2017-05-22] MEDS: FLUTICASONE/SALMETEROL 100 MCG/50 MCG DISKUS IH SCH ×2 (09:35→22:54)
[2017-05-22] MEDS: DULoxetine HCL 30 MG CAPSULE.DR (FP) PO SCH (09:35)
--- NOTE | 2017-05-22 10:22 | PN ---
Progress Note, Physician Chief Complaint: Not in distress this am No further events History of Present Illness: Patient was seen and examined. Awake and alert. Chart was reviewed Denies chest pain, SOB or palpitations Appears comfortable. Tolerating medication change - Current Medication List Current Medications: Active Medications Acetaminophen (Tylenol -) 325 mg PO Q4H PRN PRN Reason: PAIN Al Hydroxide/Mg Hydroxide (Mylanta Oral Suspension -) 30 ml PO Q4H PRN PRN Reason: dyspepsia/abdominal discomfort Albuterol/Ipratropium (Duoneb -) 1 amp NEB Q4H PRN PRN Reason: SHORTNESS OF BREATH Apixaban (Eliquis -) 5 mg PO BID REPLACED BY [facility] Last Admin: 05/22/17 09:34 Dose: 5 mg Ascorbic Acid (Vitamin C -) 500 mg PO BID REPLACED BY [facility] Last Admin: 05/22/17 09:34 Dose: 500 mg Bisacodyl (Dulcolax Suppository -) 10 mg RC DAILY PRN PRN Reason: CONSTIPATION Docusate Sodium (Colace -) 100 mg PO TID REPLACED BY [facility] Last Admin: 05/22/17 05:34 Dose: Not Given Duloxetine HCl (Cymbalta -) 30 mg PO DAILY REPLACED BY [facility] Last Admin: 05/22/17 09:35 Dose: 30 mg Ferrous Sulfate (Feosol -) 325 mg PO BIDWM REPLACED BY [facility] Last Admin: 05/22/17 09:34 Dose: 325 mg Folic Acid (Folic Acid -) 1 mg PO DAILY REPLACED BY [facility] Last Admin: 05/22/17 09:34 Dose: 1 mg Melatonin (Melatonin) [address] [facility] Last Admin: 05/21/17 22:59 Dose: 3 mg Metoprolol Tartrate (Lopressor -) 50 mg PO TID REPLACED BY [facility] Last Admin: 05/22/17 05:56 Dose: 50 mg Montelukast Sodium (Singulair -) [address] [facility] Last Admin: 05/21/17 23:00 Dose: 10 mg Oxycodone HCl (Roxicodone -) 5 mg PO Q4H PRN PRN Reason: MILD PAIN Pantoprazole Sodium (Protonix -) 20 mg PO DAILY REPLACED BY [facility] Last Admin: 05/22/17 09:34 Dose: 20 mg Polyethylene Glycol (Miralax (For Daily Use) -) 17 gm PO DAILY PRN PRN Reason: CONSTIPATION Pregabalin (Lyrica -) 150 mg PO TID REPLACED BY [facility] Last Admin: 05/22/17 05:56 Dose: 150 mg Fluticasone/Salmeterol (Advair 100mcg/50mcg -) 1 puff IH BID REPLACED BY [facility] Last Admin: 05/22/17 09:35 Dose: 1 puff Senna (Senna -) 2 tab PO BID REPLACED BY [facility] Last Admin: 05/21/17 23:02 Dose: Not Given - Objective Vital Signs: Vital Signs Temperature 97.6 F 05/22/17 05:55 Pulse Rate 82 05/22/17 05:55 Respiratory Rate 20 05/22/17 05:55 Blood Pressure 139/83 05/22/17 05:55 O2 Sat by Pulse Oximetry (%) 96 05/21/17 21:00 Neck: Yes: Supple Cardiovascular: Yes: Regular Rate and Rhythm, S1, S2 Respiratory: Yes: CTA Bilaterally Gastrointestinal: Yes: Normal Bowel Sounds, Soft. No: Tenderness Edema: No Additional Findings/Remarks: Review of Systems Constitutional: denies: Chills, fever Cardiovascular: denies: chest pain, SOB, palpitations Respiratory: denies: Cough or Sputum Production Gastrointestinal: denies: Nausea, Vomiting, Diarrhea, Constipation or Abdominal Pain Musculoskeletal: reports: joint pains Neurological: denies: Dizziness or Headache Labs: CBC, BMP 05/21/17 06:00 Problem List - Problems (1) COPD (chronic obstructive pulmonary disease) Code(s): J44.9 - CHRONIC OBSTRUCTIVE PULMONARY DISEASE, UNSPECIFIED Qualifiers : COPD type: unspecified COPD Qualified Code(s): J44.9 - Chronic obstructive pulmonary disease, unspecified (2) Anemia Code(s): D64.9 - ANEMIA, UNSPECIFIED Qualifiers: Anemia type: iron deficiency (3) Atrial fibrillation Code(s): I48.91 - UNSPECIFIED ATRIAL FIBRILLATION Qualifiers: Atrial fibrillation type: paroxysmal Qualified Code(s): I48.0 - Paroxysmal atrial fibrillation (4) MSSA (methicillin susceptible Staphylococcus aureus) septicemia Code(s): A41.01 - SEPSIS DUE TO METHICILLIN SUSCEPTIBLE STAPHYLOCOCCUS AUREUS (5) HTN (hypertension) Code(s): I10 - ESSENTIAL (PRIMARY) HYPERTENSION Qualifiers: Hypertension type: essential hypertension Qualified Code(s): I10 - Essential (primary) hypertension (6) Discitis Code(s): M46.40 - DISCITIS, UNSPECIFIED, SITE UNSPECIFIED (7) Spinal abscess Code(s): M46.20 - OSTEOMYELITIS OF [place]BRA, SITE UNSPECIFIED Assessment/Plan 1. Post lap cholecystectomy - history of cholecystitis - clinically stable 2. Syncope - likely vasovagal and medication induced 3. Paroxysmal atrial fibrillation remains in sinus rhythm, [id number] score of 3 4. HTN 5. History of discitis/para-spinal abscess 6. COPD PLAN: 1. Continue Eliquis 2. Continue Lopressor with caution currently 50 mg TID 3. Continue remainder of medications 4. Await transfer to rehab ([place]) for further physical therapy and cleared cardiac standpoint Jaquan Calvert MD
[2017-05-22] MEDS: SENNOSIDES 8.6MG TABLET (FP) PO SCH ×2 (13:03→23:32)
[2017-05-22] MEDS: MONTELUKAST NA 10 MG TABLET PO SCH (22:53)
[2017-05-22] MEDS: MELATONIN 1 MG TABLET PO SCH (22:53)
[2017-05-23] MEDS: DOCUSATE SODIUM 100 MG CAPSULE (FP) PO SCH ×3 (06:53→21:06)
[2017-05-23] MEDS: METOPROLOL TARTRATE 50 MG TABLET (FP) PO SCH ×3 (06:53→21:06)
[2017-05-23] MEDS: PREGABALIN 75 MG CAPSULE PO SCH ×3 (06:53→21:06)
--- NOTE | 2017-05-23 08:40 | PN ---
Progress Note (short form) - Note Progress Note: PATIENT WITH NO NEW COMPLAINTS . HE DENIES ANY CP / SOB / PALPITATIONS. WALKED WITH WALKER ASSIST TO NURSES STATION YESTERDAY . Selected Entries 05/22/17 05:55 Temperature 97.6 F Pulse Rate 82 Respiratory 20 Rate Blood Pressure 139/83 P/E <> COMFORTABLE / ALERT / NO DISTRESS. HEENT <> NECK SUPPLE COR <> S 1 S 2 NO M / NO G . CHEST <> CLEAR P & A ABD > SOFT / NON TENDER EXT <>NO EDEMA IMP <> S/P LAP CHOLECYSTECTOMY POST OP SYNCOPE A. FIB HTN HY OF SPINAL ABSCESS / DISCITIS. THORACIC AORTA ANEURYSM. PLAN <> CONTINUE PT RX . AWAIT TRANSFER TO [facility]. 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 AFIB <> ON ELIQUIS . CONTINUE SAME.
[2017-05-23] MEDS ORDERED: PT OWN MED DRAWER 7, Y5N ONE (08:57)
[2017-05-23] MEDS: FERROUS SO4 325 MG TABLET (FP) PO SCH ×2 (09:39→17:07)
[2017-05-23] MEDS: FOLIC ACID 1 MG TABLET (FP) PO SCH (09:40)
[2017-05-23] MEDS: DULoxetine HCL 30 MG CAPSULE.DR (FP) PO SCH (09:40)
[2017-05-23] MEDS: SENNOSIDES 8.6MG TABLET (FP) PO SCH ×2 (09:40→21:06)
[2017-05-23] MEDS: APIXABAN 5 MG TABLET PO SCH ×2 (09:40→21:06)
[2017-05-23] MEDS: FLUTICASONE/SALMETEROL 100 MCG/50 MCG DISKUS IH SCH ×2 (09:40→21:07)
[2017-05-23] MEDS: PANTOPRAZOLE 20 MG TABLET (FP) PO SCH (09:40)
[2017-05-23] MEDS: ASCORBIC ACID 500 MG TABLET (FP) PO SCH ×2 (09:40→21:07)
--- NOTE | 2017-05-23 11:36 | PN ---
Progress Note, Physician Chief Complaint: Not in distress this am No further events History of Present Illness: Patient was seen and examined. Awake and alert. Chart was reviewed Denies chest pain, SOB or palpitations Appears comfortable. Tolerating medication change. Not in distress - Current Medication List Current Medications: Active Medications Acetaminophen (Tylenol -) 325 mg PO Q4H PRN PRN Reason: PAIN Al Hydroxide/Mg Hydroxide (Mylanta Oral Suspension -) 30 ml PO Q4H PRN PRN Reason: dyspepsia/abdominal discomfort Albuterol/Ipratropium (Duoneb -) 1 amp NEB Q4H PRN PRN Reason: SHORTNESS OF BREATH Apixaban (Eliquis -) 5 mg PO BID [facility] Last Admin: 05/23/17 09:40 Dose: 5 mg Ascorbic Acid (Vitamin C -) 500 mg PO BID [facility] Last Admin: 05/23/17 09:40 Dose: 500 mg Bisacodyl (Dulcolax Suppository -) 10 mg RC DAILY PRN PRN Reason: CONSTIPATION Docusate Sodium (Colace -) 100 mg PO TID [facility] Last Admin: 05/23/17 06:53 Dose: 100 mg Duloxetine HCl (Cymbalta -) 30 mg PO DAILY [facility] Last Admin: 05/23/17 09:40 Dose: 30 mg Ferrous Sulfate (Feosol -) 325 mg PO BIDWM [facility] Last Admin: 05/23/17 09:39 Dose: 325 mg Folic Acid (Folic Acid -) 1 mg PO DAILY [facility] Last Admin: 05/23/17 09:40 Dose: 1 mg Melatonin (Melatonin) 3 mg PO [facility] Last Admin: 05/22/17 22:53 Dose: 3 mg Metoprolol Tartrate (Lopressor -) 50 mg PO TID [facility] Last Admin: 05/23/17 06:53 Dose: 50 mg Montelukast Sodium (Singulair -) 10 mg PO [facility] Last Admin: 05/22/17 22:53 Dose: 10 mg Pantoprazole Sodium (Protonix -) 20 mg PO DAILY [facility] Last Admin: 05/23/17 09:40 Dose: 20 mg Polyethylene Glycol (Miralax (For Daily Use) -) 17 gm PO DAILY PRN PRN Reason: CONSTIPATION Pregabalin (Lyrica -) 150 mg PO TID [facility] Last Admin: 05/23/17 06:53 Dose: 150 mg Fluticasone/Salmeterol (Advair 100mcg/50mcg -) 1 puff IH BID [facility] Last Admin: 05/23/17 09:40 Dose: 1 puff Senna (Senna -) 2 tab PO BID [facility] Last Admin: 05/23/17 09:40 Dose: 2 tab - Objective Vital Signs: Vital Signs Temperature 98.4 F 05/23/17 09:00 Pulse Rate 68 05/23/17 10:08 Respiratory Rate 18 05/23/17 09:00 Blood Pressure 138/80 05/23/17 09:00 O2 Sat by Pulse Oximetry (%) 97 05/23/17 10:08 Neck: Yes: Supple Cardiovascular: Yes: Regular Rate and Rhythm, S1, S2 Respiratory: Yes: CTA Bilaterally Gastrointestinal: Yes: Normal Bowel Sounds, Soft. No: Tenderness Edema: No Additional Findings/Remarks: Review of Systems Constitutional: denies: Chills, fever Cardiovascular: denies: chest pain, SOB, palpitations Respiratory: denies: Cough or Sputum Production Gastrointestinal: denies: Nausea, Vomiting, Diarrhea, Constipation or Abdominal Pain Musculoskeletal: denies: joint pains Neurological: denies: Dizziness or Headache Problem List - Problems (1) COPD (chronic obstructive pulmonary disease) Code(s): J44.9 - CHRONIC OBSTRUCTIVE PULMONARY DISEASE, UNSPECIFIED Qualifiers : COPD type: unspecified COPD Qualified Code(s): J44.9 - Chronic obstructive pulmonary disease, unspecified (2) Anemia Code(s): D64.9 - ANEMIA, UNSPECIFIED Qualifiers: Anemia type: iron deficiency (3) Atrial fibrillation Code(s): I48.91 - UNSPECIFIED ATRIAL FIBRILLATION Qualifiers: Atrial fibrillation type: paroxysmal Qualified Code(s): I48.0 - Paroxysmal atrial fibrillation (4) MSSA (methicillin susceptible Staphylococcus aureus) septicemia Code(s): A41.01 - SEPSIS DUE TO METHICILLIN SUSCEPTIBLE STAPHYLOCOCCUS AUREUS (5) HTN (hypertension) Code(s): I10 - ESSENTIAL (PRIMARY) HYPERTENSION Qualifiers: Hypertension type: essential hypertension Qualified Code(s): I10 - Essential (primary) hypertension (6) Discitis Code(s): M46.40 - DISCITIS, UNSPECIFIED, SITE UNSPECIFIED (7) Spinal abscess Code(s): M46.20 - OSTEOMYELITIS OF [place]BRA, SITE UNSPECIFIED Assessment/Plan 1. Post lap cholecystectomy - history of cholecystitis - clinically stable 2. Syncope - likely vasovagal and medication induced 3. Paroxysmal atrial fibrillation remains in sinus rhythm, [id number] score of 3 4. HTN 5. History of discitis/para-spinal abscess 6. COPD PLAN: 1. Continue Eliquis 2. Continue Lopressor with caution currently 50 mg TID or may give 75 mg BID 3. Continue remainder of medications 4. Await transfer to rehab ([place]) for further physical therapy and cleared cardiac standpoint Jaquan Calvert MD
[2017-05-23] MEDS: MONTELUKAST NA 10 MG TABLET PO SCH (21:06)
[2017-05-23] MEDS: MELATONIN 1 MG TABLET PO SCH (21:07)
[2017-05-24] MEDS: METOPROLOL TARTRATE 50 MG TABLET (FP) PO SCH ×2 (06:56→13:21)
[2017-05-24] MEDS: PREGABALIN 75 MG CAPSULE PO SCH ×2 (06:56→13:21)
[2017-05-24] MEDS: DOCUSATE SODIUM 100 MG CAPSULE (FP) PO SCH ×2 (06:56→13:20)
--- NOTE | 2017-05-24 07:24 | PN ---
Progress Note (short form) - Note Progress Note: Chief Complaint: Events noted, notes reviewed. Denies any chest pain or dyspnea , denies abdominal pain or nausea History of Present Illness: Seen and examined on telemetry. Events noted, notes reviewed. Denies any chest pain or dyspnea, denies abdominal pain or nausea - Current Medication List Current Medications Acetaminophen (Tylenol -) 325 mg PO Q4H PRN PRN Reason: PAIN Al Hydroxide/Mg Hydroxide (Mylanta Oral Suspension -) 30 ml PO Q4H PRN PRN Reason: dyspepsia/abdominal discomfort Apixaban (Eliquis -) 5 mg PO BID [facility] Last Admin: 05/23/17 21:06 Dose: 5 mg Ascorbic Acid (Vitamin C -) 500 mg PO BID [facility] Last Admin: 05/23/17 21:07 Dose: 500 mg Bisacodyl (Dulcolax Suppository -) 10 mg RC DAILY PRN PRN Reason: CONSTIPATION Docusate Sodium (Colace -) 100 mg PO TID [facility] Last Admin: 05/24/17 06:56 Dose: 100 mg Duloxetine HCl (Cymbalta -) 30 mg PO DAILY [facility] Last Admin: 05/23/17 09:40 Dose: 30 mg Ferrous Sulfate (Feosol -) 325 mg PO BIDWM [facility] Last Admin: 05/23/17 17:07 Dose: 325 mg Folic Acid (Folic Acid -) 1 mg PO DAILY [facility] Last Admin: 05/23/17 09:40 Dose: 1 mg Melatonin (Melatonin) 3 mg PO [facility] Last Admin: 05/23/17 21:07 Dose: 3 mg Metoprolol Tartrate (Lopressor -) 50 mg PO TID [facility] Last Admin: 05/24/17 06:56 Dose: 50 mg Montelukast Sodium (Singulair -) 10 mg PO [facility] Last Admin: 05/23/17 21:06 Dose: 10 mg Pantoprazole Sodium (Protonix -) 20 mg PO DAILY [facility] Last Admin: 05/23/17 09:40 Dose: 20 mg Polyethylene Glycol (Miralax (For Daily Use) -) 17 gm PO DAILY PRN PRN Reason: CONSTIPATION Pregabalin (Lyrica -) 150 mg PO TID [facility] Last Admin: 05/24/17 06:56 Dose: 150 mg Fluticasone/Salmeterol (Advair 100mcg/50mcg -) 1 puff IH BID [facility] Last Admin: 05/23/17 21:07 Dose: 1 puff Senna (Senna -) 2 tab PO BID [facility] Last Admin: 05/23/17 21:06 Dose: 2 tab Review of Systems Constitutional: denies: Chills Cardiovascular: As noted above Respiratory: denies: Cough or Sputum Production Gastrointestinal: denies: Nausea, Vomiting, Diarrhea, Constipation or Abdominal Pain Musculoskeletal: No Symptoms Reported Neurological: denies: Dizziness or Headache - Objective Vital Signs: Last Vital Signs Temp Pulse Resp BP Pulse Ox 97.4 F L 86 16 140/91 97 05/24/17 07:01 05/24/17 07:01 05/24/17 07:01 05/24/17 07:01 05/23/17 21:00 Intake & Output 05/21/17 05/22/17 05/23/17 05/24/17 23:59 23:59 23:59 23:59 Intake Total 500 400 Output Total 900 1200 Balance -400 -1200 400 Neck: Supple Negative JVD No Bruit Cardiovascular: S1 S2 Regular Rate and Rhythm Respiratory: Clear to A&P Bilaterally Gastrointestinal: Soft Benign Normal Bowel Sounds, Soft. No: Tenderness Ext: No Edema Labs: CBC, BMP 05/21/17 06:00 05/20/17 07:00 Assessment/Plan ASSESSMENT: 1. Post lap-cholecystectomy - history of cholecystitis 2. Syncope - most likely vasovagal syncope 3. Paroxysmal atrial fibrillation currently in sinus rhythm, [id number] score of 3 on A/C with NOAC's/Eliquis 4. HTN 5. History of COPD 6. History of discitis/para-spinal abscess 7. Anemia PLAN: 1. Continue Eliquis with close monitoring of CBC 2. Continue Lopressor hemodynamics permitting 3. Await transfer to rehab ([facility]) for PT Grayson Burkett M.D.
[2017-05-24 08:56] VITALS: BP 136/76; TEMP 98.4
[2017-05-24] MEDS: PANTOPRAZOLE 20 MG TABLET (FP) PO SCH (09:56)
[2017-05-24] MEDS: FOLIC ACID 1 MG TABLET (FP) PO SCH (09:56)
[2017-05-24] MEDS: SENNOSIDES 8.6MG TABLET (FP) PO SCH (09:57)
[2017-05-24] MEDS: ASCORBIC ACID 500 MG TABLET (FP) PO SCH (09:57)
[2017-05-24] MEDS: FLUTICASONE/SALMETEROL 100 MCG/50 MCG DISKUS IH SCH (09:57)
[2017-05-24] MEDS: FERROUS SO4 325 MG TABLET (FP) PO SCH (09:57)
[2017-05-24] MEDS: DULoxetine HCL 30 MG CAPSULE.DR (FP) PO SCH (09:57)
[2017-05-24] MEDS: APIXABAN 5 MG TABLET PO SCH (09:57)
--- NOTE | 2017-05-24 10:37 | PN ---
Progress Note, Physician Chief Complaint: no complaints except anxious to go back to [facility]. History of Present Illness: Patient with admission for Lap Cholecystectomy tolerated surgery well. Post procedure had syncopal episode but no recurrence. He had a lower Hb postop and Cardizem CD was held for lower BP readings. Also history of Sepsis due to MSSA, Acute Discitis and Osteomyelitis and epidural collection treated with 8 weeks IV antibiotics.Also hx of 4cm AAA, Paroxysmal A. Fibrillation and Hypertension. Await transfer to [facility]. - Current Medication List Current Medications: Active Medications Acetaminophen (Tylenol -) 325 mg PO Q4H PRN PRN Reason: PAIN Al Hydroxide/Mg Hydroxide (Mylanta Oral Suspension -) 30 ml PO Q4H PRN PRN Reason: dyspepsia/abdominal discomfort Apixaban (Eliquis -) 5 mg PO BID [facility] Last Admin: 05/24/17 09:57 Dose: 5 mg Ascorbic Acid (Vitamin C -) 500 mg PO BID [facility] Last Admin: 05/24/17 09:57 Dose: 500 mg Bisacodyl (Dulcolax Suppository -) 10 mg RC DAILY PRN PRN Reason: CONSTIPATION Docusate Sodium (Colace -) 100 mg PO TID [facility] Last Admin: 05/24/17 06:56 Dose: 100 mg Duloxetine HCl (Cymbalta -) 30 mg PO DAILY [facility] Last Admin: 05/24/17 09:57 Dose: 30 mg Ferrous Sulfate (Feosol -) 325 mg PO BIDWM [facility] Last Admin: 05/24/17 09:57 Dose: 325 mg Folic Acid (Folic Acid -) 1 mg PO DAILY [facility] Last Admin: 05/24/17 09:56 Dose: 1 mg Melatonin (Melatonin) 3 mg PO [facility] Last Admin: 05/23/17 21:07 Dose: 3 mg Metoprolol Tartrate (Lopressor -) 50 mg PO TID [facility] Last Admin: 05/24/17 06:56 Dose: 50 mg Montelukast Sodium (Singulair -) 10 mg PO [facility] Last Admin: 05/23/17 21:06 Dose: 10 mg Pantoprazole Sodium (Protonix -) 20 mg PO DAILY [facility] Last Admin: 05/24/17 09:56 Dose: 20 mg Polyethylene Glycol (Miralax (For Daily Use) -) 17 gm PO DAILY PRN PRN Reason: CONSTIPATION Pregabalin (Lyrica -) 150 mg PO TID [facility] Last Admin: 05/24/17 06:56 Dose: 150 mg Fluticasone/Salmeterol (Advair 100mcg/50mcg -) 1 puff IH BID [facility] Last Admin: 05/24/17 09:57 Dose: 1 puff Senna (Senna -) 2 tab PO BID [facility] Last Admin: 05/24/17 09:57 Dose: 2 tab - Objective Vital Signs: Vital Signs Temperature 98.4 F 05/24/17 08:54 Pulse Rate 74 05/24/17 08:54 Respiratory Rate 18 05/24/17 08:54 Blood Pressure 136/76 05/24/17 08:54 O2 Sat by Pulse Oximetry (%) 98 05/24/17 08:54 Constitutional: Yes: Calm Eyes: Yes: Conjunctiva Clear Cardiovascular: Yes: Regular Rate and Rhythm Respiratory: Yes: Diminished, Rhonchi (few rhonchi at bases) Gastrointestinal: Yes: Soft. No: Tenderness Genitourinary: No: Fragoso Present Edema: No Wound/Incision: Yes: Other (Healing lap Cholcystectomy sites; clean and dry.) Neurological: Yes: Alert, Oriented Labs: CBC, BMP 05/21/17 06:00 05/20/17 07:00 INR, PTT INR 1.31 (0.82-1.09) H 05/18/17 06:30 Problem List - Problems (1) S/P laparoscopic cholecystectomy Assessment/Plan: Surgical sites healing well. Tolerating diet and had BM's. Code(s): Z90.49 - ACQUIRED ABSENCE OF OTHER SPECIFIED PARTS OF DIGESTIVE TRACT (2) Syncope Assessment/Plan: Now on FeSO4 and off Cardizem. No recurrence of syncope. To follow BP at [facility]. Code(s): R55 - SYNCOPE AND COLLAPSE (3) HTN (hypertension) Assessment/Plan: Most recent BP 136/76 Would restart Cardizem at dose of CD120 if further elevated. Code(s): I10 - ESSENTIAL (PRIMARY) HYPERTENSION Qualifiers: Hypertension type: essential hypertension Qualified Code(s): I10 - Essential (primary) hypertension (4) Discitis Assessment/Plan: Resolved after 8 weks IV antibiotics Code(s): M46.40 - DISCITIS, UNSPECIFIED, SITE UNSPECIFIED (5) Spinal abscess Code(s): M46.20 - OSTEOMYELITIS OF [place]BRA, SITE UNSPECIFIED (6) Atrial fibrillation Assessment/Plan: Paroxysmal A. Fib ; on Eliquis. Code(s): I48.91 - UNSPECIFIED ATRIAL FIBRILLATION Qualifiers: Atrial fibrillation type: paroxysmal Qualified Code(s): I48.0 - Paroxysmal atrial fibrillation (7) Pain Code(s): R52 - PAIN, UNSPECIFIED (8) Thoracic aortic aneurysm without rupture Assessment/Plan: Follow as outpatient. Code(s): I71.2 - THORACIC AORTIC ANEURYSM, WITHOUT RUPTURE (9) Anemia Assessment/Plan: Hb. Stable at 10.3 GM. On FeSO4 and Vit C BID. Code(s): D64.9 - ANEMIA, UNSPECIFIED Qualifiers: Anemia type: iron deficiency
[2017-05-24 10:38] VITALS: PULSE 88
== END 2017-05-24 15:06 | DRG 419 ==
LOC: JER 11:28 → JERBED 14:15 → J5S 16:32 → J4S 05-19 15:23
PROVIDERS: ADMIT Internal Medicine; ATTEND Internal Medicine
PROC: 0FT44ZZ Resection of Gallbladder, Percutaneous Endoscopic Approach (ICD-10-PCS; principal; 2017-05-16)
DX: K80.12 Calculus of gallbladder with acute and chronic cholecystitis without obstruction (principal); K66.0 Peritoneal adhesions (postprocedural) (postinfection); I10 Essential (primary) hypertension; J44.9 Chronic obstructive pulmonary disease, unspecified; M54.41 Lumbago with sciatica, right side; I48.0 Paroxysmal atrial fibrillation; D50.8 Other iron deficiency anemias; I71.2 Thoracic aortic aneurysm, without rupture; M46.40 Discitis, unspecified, site unspecified; M70.52 Other bursitis of knee, left knee; R55 Syncope and collapse
CPT/HCPCS: 36415; 70450-TC; 71010-TC; 80048; 80053; 81003; 81015; 83605; 83735; 84100; 84484; 84550; 85025; 85610; 85730; 86850; 86900; 86901; 87040; 88304-TC; 93005; 93010; 94010; 94760; 97116-GP; 97161-GP; 99285-25; J1644

== ENCOUNTER 2017-05-30 13:17 | Inpatient (IN) | payer OTHER, BC ==
[2017-05-30 13:53] VITALS: BMI 23.3
[2017-05-30] MEDS ORDERED: SODIUM CHLORIDE 0.9% 1000 ML INFUS.BAG IV ONE (14:12)
--- NOTE | 2017-05-30 14:34 | PDOC ---
History of Present Illness - General Chief Complaint: Syncope/Near Syncope Stated Complaint: CHECKED FOR POSSIBLE SEIZURE Time Seen by Provider: 05/30/17 13:56 History Source: Patient, Family Exam Limitations: No Limitations - History of Present Illness Initial Comments: This is a 77 yo male who is POD #12 from lap cholecystectomy, h/o discitis/ osteomyelitis and epidural abscess with MSSA bacteremia, psoas abscess with percutaneous drainage, spinal stenosis, paroxysmal A-fib, diastolic CHF, HTN, COPD, and thoracic aortic aneurysm without rupture. He is BIBA from [facility] for recurrent episodes of 10-15 seconds of blank staring followed by immediate return to baseline, which have previously been worked up with a head CT showing no obvious cause. He was started on Keppra yesterday for these recurrent episodes. After another episode today at the facility, Dr. Galeano and [facility] requested that the patient be brought to the ED for evaluation and admission. The patient denies any symptoms of illness lately (no fever, chills, nausea, vomiting, diarrhea, abdominal pain, chest pain, SOB, headache, or new numbness, tingling, or weakness). Past History - Past Medical History Allergies/Adverse Reactions: Allergies Allergy/AdvReac Type Severity Reaction Status Date / Time aloe Allergy Severe Rash Verified 05/30/17 13:53 aloe vera Allergy Severe Rash Verified 05/30/17 13:53 Home Medications: Ambulatory Orders Acetaminophen [Tylenol] 650 mg PO Q4H PRN 05/16/17 Ascorbate Calcium [Vitamin C] 500 mg PO DAILY 05/16/17 Bisacodyl [Dulcolax] 10 mg RC HS 05/16/17 Diclofenac Sodium [Voltaren] 100 gm TP BID 05/16/17 Docusate Sodium [Colace -] 100 mg PO TID 05/16/17 Duloxetine HCl [Cymbalta -] 30 mg PO DAILY 05/16/17 Folic Acid 1 mg PO DAILY 05/16/17 Guaifenesin Dm [Robitussin Dm -] 5 ml PO Q4H PRN 05/16/17 Ipratropium/Albuterol Sulfate [Iprat-Albut 0.5-3(2.5) mg/3 ml] 3 ml IH Q4H PRN 05/16/17 Lactobacillus Acidophilus [Bacid -] 1 each PO DAILY 05/16/17 Lidocaine 2% Jelly [Xylocaine 2% Jelly] 0 applic TP BID 05/16/17 Mag Hydrox/Al Hydrox/Simeth [Mylanta Oral Suspension -] 30 ml PO Q4H PRN Magnesium Oxide [Mag-Ox -] 400 ml PO BID 05/16/17 Melatonin 3 mg PO HS 05/16/17 Metoprolol Tartrate [Lopressor] 50 mg PO BID 05/16/17 Montelukast Na [Singulair -] 10 mg PO HS 05/16/17 Nystatin Cream [Mycostatin Cream -] 1 applic TP BID 05/16/17 Omeprazole 20 mg PO DAILY 05/16/17 Ondansetron [Zofran -] 4 mg PO Q8H PRN 05/16/17 Polyethylene Glycol 3350 [Miralax 119 gm Btl -] 17 gm PO DAILY PRN 05/16/17 Pregabalin [Lyrica -] 150 mg PO Q8H 05/16/17 Salmeterol/Fluticasone [Advair 100Mcg/50Mcg -] 1 inh PO BID 05/16/17 Sennosides [Senna] 2 tab PO BID 05/16/17 Apixaban [Eliquis -] 5 mg PO BID tablet 05/20/17 Ferrous Sulfate [Feosol] 325 mg PO BIDWM tablet 05/20/17 Oxycodone HCl [Roxicodone -] 5 mg PO Q4H PRN #60 tablet MDD 4 05/20/17 Levetiracetam [Keppra -] 500 mg PO BID 05/30/17 Magnesium Hydrox 2400MG/30Ml [Milk of Magnesia -] 30 ml PO DAILY PRN 05/30/17 Anemia: Yes Asthma: Yes Cardiac Disorders: Yes (p. AFIB, THORACIC AORTIC ANEURYSM) COPD: Yes HTN: Yes - Surgical History Abdominal Surgery: Yes (HERNIA) - Psycho/Social/Smoking Cessation Hx Anxiety: No Suicidal Ideation: No Smoking History: Never smoked Have you smoked in the past 12 months: No Information on smoking cessation initiated: No Hx Alcohol Use: No Drug/Substance Use Hx: No Substance Use Type: None Hx Substance Use Treatment: No Review of Systems - Review of Systems Constitutional: No: Chills, Fever, Unexplained wgt Loss HEENTM: No: Nose Congestion, Throat Pain Respiratory: No: Cough, Shortness of Breath Cardiac (ROS): Yes: Syncope (versus seizure). No: Chest Pain, Palpitations ABD/GI: No: Constipated, Diarrhea, Nausea, Vomiting : No: Burning, Dysuria Musculoskeletal: No: Back Pain, Neck Pain Integumentary: No: Bruising, Rash Neurological: Yes: Seizure (versus syncope). No: Headache, Numbness, Tingling, Weakness, Dizziness Endocrine: No: Unexplained Weight Gain, Unexplained Weight Loss *Physical Exam - Vital Signs Last Vital Signs Temp Pulse Resp BP Pulse Ox 85 18 91/81 98 05/30/17 13:20 05/30/17 13:20 05/30/17 13:20 05/30/17 13:20 - Physical Exam General Appearance: Yes: Nourished, Appropriately Dressed, Other (pleasant older male who appears frustrated when speaking about his recent medical conditions, answering appropriately, spontaneously moves all extremities). No: Apparent Distress HEENT: positive: EOMI, Normal Voice, Hearing Grossly Normal. negative: Scleral Icterus (R), Scleral Icterus (L), Nasal Congestion Neck: positive: Trachea midline, Supple. negative: Tender, Rigid Respiratory/Chest: positive: Lungs Clear, Normal Breath Sounds. negative: Respiratory Distress, Crackles, Rhonchi, Stridor, Wheezing Cardiovascular: positive: Regular Rate, Irregularly Irregular. negative: Murmur Gastrointestinal/Abdominal: positive: Normal Bowel Sounds, Soft, Other ( laparoscopic incisions clean, dry, and intact with dermabond, no erythema or tenderness to palpation). negative: Tender, Organomegaly, Pulsatile Mass, Guarding Musculoskeletal: positive: Normal Inspection. negative: Decreased Range of Motion, Vertebral Tenderness Extremity: positive: Normal Capillary Refill, Normal Inspection, Normal Range of Motion. negative: Tender, Cyanosis Integumentary: positive: Normal Color, Dry, Warm. negative: Erythema, Rash, Bruising Neurologic: positive: gun barrel finisher II-XII NML intact, Fully Oriented, Alert, Normal Mood/ Affect, Normal Response, Motor Strength 5/5, Finger to Nose (normal). negative : Facial Droop, Sensory Deficit, Confused, Disoriented Heart Score/ECG Review #1 ECG reviewed & interpreted by me at: 14:00 NSR rate of 77 with LVH otherwise normal EKG ED Treatment Course - LABORATORY CBC & Chemistry Diagram: 05/30/17 14:35 05/30/17 14:35 - RADIOLOGY Radiology Studies Ordered: CXR shows right basilar atelectasis - Medications Given in the ED: ED Medications Discontinued Medications Generic Name Dose Route Start Last Admin Trade Name Nirmal PRN Reason Stop Dose Admin Sodium Chloride 1,000 ml 05/30/17 14:12 05/30/17 14:15 Normal Saline - IV 05/30/17 14:13 1,000 ml ONCE ONE Administration Medical Decision Making - Medical Decision Making 77 yom with complicated recent medical history including vertebral discitis/ osteomyelitis with epidural abscess, psoas abscess, MSSA bacteremia. POD #12 from cholecystectomy and for the past four days has been having at least one episode/day LOC for 10-15 sec. Episodes described as blank staring, and the patient cannot remember them. Had head CT after the first of these episodes which occurred here at [facility] in the end of April. On exam re-took BP and it is 117/80. 05/30/17 16:[address] Galeano who recommends admission to IP telemetry, Dr. Morrow, with cards and neuro consults. Expresses concern about the continued LOC episodes and requests MRI brain WWO, continuous monitoring. Re-took BP again and it is 146/91. Bloodwork is nondirective, EKG unremarkable other than LVH, CXR with right basilar atelectasis similar to prior. Spoke with Dr. Morrow who agrees to come see the patient in the ED and admit per Dr. Galeano's recommendation. Pt is unable to urinate while here in the ED; UA and cx order is in the system. Pt is admitted to IP telemetry with cardiology and neuro consults ordered. *DC/Admit/Observation/Transfer Diagnosis at time of Disposition: Transient loss of consciousness - Discharge Dispostion Condition at time of disposition: Guarded Admit: Yes
[2017-05-30 14:48] LABS: BASOPHIL 0.5 % (0-2.0); EOSINOPHIL 3.7 % (0-4.5); MCHC 31.9 g/dl (32.0-35.9); MEAN CELL VOLUME 87.7 fl (80-96); NEUTROPHILS 75.3 % (42.8-82.8); PLATELET COUNT 388 K/MM3 (134-434); RDW 15.7 % (11.9-15.9); WHITE BLOOD COUNT 10.3 K/mm3 (4.0-10.0)
[2017-05-30 15:07] LABS: ALBUMIN 2.5 g/dl (3.4-5.0); ANION GAP 9 (8-16); BILIRUBIN,TOTAL 0.3 mg/dL (0.2-1.0); CALCIUM 9.1 mg/dL (8.5-10.1); CO2 30 mmol/L (21-32); CREATININE 0.6 mg/dL (0.7-1.3); GLUCOSE,RANDOM 83 mg/dL (74-106); SGOT/AST 10 U/L (15-37); SGPT/ALT 10 U/L (12-78); TOT PROT 7.5 g/dl (6.4-8.2)
[2017-05-30 15:10] LABS: ALK PHOS 95 U/L (45-117); CPK 47 IU/L (39-308); TROPONIN I < 0.02 ng/ml (0.00-0.05)
[2017-05-30 15:56] LABS: INR 1.65 (0.82-1.09); PROTHROMBIN TIME (PATIENT) 18.3 SEC (9.98-11.88)
[2017-05-30 15:59] LABS: ACTIVATED PTT 33.5 SECONDS (26.9-34.4)
--- NOTE | 2017-05-30 16:49 | HP ---
Admitting History and Physical - Primary Care Physician PCP: Josh Galeano - Admission Chief Complaint: I'm passing out History of Present Illness: Mr Santacruz is a pleasant 77 year old male who presents from [facility] for repeated episodes of passing out. He was recently discharged after having a cholecystectomy and was at [facility] for rehabilitation. He was doing well, but he says that he will begin to feel a tickle in his throat and begins to cough. He says if he drinks something it will resolve. However if he continues to cough it is noted that he passes out. He states he does not remember these episodes but per staff at [facility] he becomes unresponsive for approximately 10-15 seconds and then he recovers. He says this has been going on since he was discharged. He had one episode where he stood up and passed out, but says that time he felt dizzy and it is different from the coughing episodes. Aside from that he says he is doing well. He denies fevers, chills, chest pain, shortness of breath, nausea, vomiting, diarrhea, constipation, difficulty or pain on urination, or swelling. History Source: Patient Limitations to Obtaining History: No Limitations - Past Medical History Cardiovascular: Yes: AFIB, HTN Pulmonary: Yes: COPD Gastrointestinal: Yes: Other (history of choledocholithiasis s/p ERCP with Dr. 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 [employer] History of Recent Travel: Yes (as above) Home Medications - Allergies Allergies/Adverse Reactions: Allergies Allergy/AdvReac Type Severity Reaction Status Date / Time aloe Allergy Severe Rash Verified 05/30/17 13:53 aloe vera Allergy Severe Rash Verified 05/30/17 13:53 - Home Medications Home Medications: Ambulatory Orders Acetaminophen [Tylenol] 650 mg PO Q4H PRN 05/16/17 Ascorbate Calcium [Vitamin C] 500 mg PO DAILY 05/16/17 Bisacodyl [Dulcolax] 10 mg RC HS 05/16/17 Diclofenac Sodium [Voltaren] 100 gm TP BID 05/16/17 Docusate Sodium [Colace -] 100 mg PO TID 05/16/17 Duloxetine HCl [Cymbalta -] 30 mg PO DAILY 05/16/17 Folic Acid 1 mg PO DAILY 05/16/17 Guaifenesin Dm [Robitussin Dm -] 5 ml PO Q4H PRN 05/16/17 Ipratropium/Albuterol Sulfate [Iprat-Albut 0.5-3(2.5) mg/3 ml] 3 ml IH Q4H PRN 05/16/17 Lactobacillus Acidophilus [Bacid -] 1 each PO DAILY 05/16/17 Lidocaine 2% Jelly [Xylocaine 2% Jelly] 0 applic TP BID 05/16/17 Mag Hydrox/Al Hydrox/Simeth [Mylanta Oral Suspension -] 30 ml PO Q4H PRN Magnesium Oxide [Mag-Ox -] 400 ml PO BID 05/16/17 Melatonin 3 mg PO HS 05/16/17 Metoprolol Tartrate [Lopressor] 50 mg PO BID 05/16/17 Montelukast Na [Singulair -] 10 mg PO HS 05/16/17 Nystatin Cream [Mycostatin Cream -] 1 applic TP BID 05/16/17 Omeprazole 20 mg PO DAILY 05/16/17 Ondansetron [Zofran -] 4 mg PO Q8H PRN 05/16/17 Polyethylene Glycol 3350 [Miralax 119 gm Btl -] 17 gm PO DAILY PRN 05/16/17 Pregabalin [Lyrica -] 150 mg PO Q8H 05/16/17 Salmeterol/Fluticasone [Advair 100Mcg/50Mcg -] 1 inh PO BID 05/16/17 Sennosides [Senna] 2 tab PO BID 05/16/17 Apixaban [Eliquis -] 5 mg PO BID tablet 05/20/17 Ferrous Sulfate [Feosol] 325 mg PO BIDWM tablet 05/20/17 Oxycodone HCl [Roxicodone -] 5 mg PO Q4H PRN #60 tablet MDD 4 05/20/17 Levetiracetam [Keppra -] 500 mg PO BID 05/30/17 Magnesium Hydrox 2400MG/30Ml [Milk of Magnesia -] 30 ml PO DAILY PRN 05/30/17 Family Disease History - Family Disease History Family Disease History: Other: Father ( 44: CVA), Mother ( 93: old age) , Sister (2 sisters, healthy) Review of Systems Findings/Remarks: Full review of systems obtained, as per HPI and otherwise negative. Physical Examination Vital Signs: Vital Signs Temperature Pulse Rate 84 05/30/17 16:40 Respiratory Rate 18 05/30/17 16:40 Blood Pressure 146/91 05/30/17 16:40 O2 Sat by Pulse Oximetry (%) 100 05/30/17 16:40 Constitutional: Yes: Well Nourished, No Distress, Calm Eyes: Yes: Conjunctiva Clear, EOM Intact, PERRL HENT: Yes: Atraumatic, Normocephalic Cardiovascular: Yes: Regular Rate and Rhythm. No: Gallop, Murmur, Rub Respiratory: Yes: Regular, CTA Bilaterally. No: Rales, Rhonchi, Wheezes Gastrointestinal: Yes: Normal Bowel Sounds, Soft. No: Distention, Tenderness Extremities: Yes: WNL Edema: No Labs: CBC, BMP 05/30/17 14:35 05/30/17 14:35 Imaging - Results Chest X-ray: Report Reviewed, Image Reviewed Problem List - Problems (1) Seizure Assessment/Plan: -patient with two different presentations -possible passing out with coughing -concern this may be an absence seizure -patient admitted to telemetry for syncope and seizure -consult neurology -order MRI -order EEG -continue keppra currently Code(s): R56.9 - UNSPECIFIED CONVULSIONS (2) Syncope Assessment/Plan: -patient with one episode of syncope on standing at [facility] -however coughing also could be carotid sinus syncope -admit to telemetry -recent ECHO, will not repeat -last carotid ultrasound last year, will repeat -check orthostatic vital signs -gentle hydration -consult cardiology Code(s): R55 - SYNCOPE AND COLLAPSE (3) Atrial fibrillation Assessment/Plan: -currently in sinus rhythm -continue lopressor -continue eliquis Code(s): I48.91 - UNSPECIFIED ATRIAL FIBRILLATION Qualifiers: Atrial fibrillation type: paroxysmal Qualified Code(s): I48.0 - Paroxysmal atrial fibrillation (4) COPD (chronic obstructive pulmonary disease) Assessment/Plan: -not in exacerbation -continue home regimen Code(s): J44.9 - CHRONIC OBSTRUCTIVE PULMONARY DISEASE, UNSPECIFIED Qualifiers : COPD type: unspecified COPD Qualified Code(s): J44.9 - Chronic obstructive pulmonary disease, unspecified (5) HTN (hypertension) Assessment/Plan: -continue lopressor Code(s): I10 - ESSENTIAL (PRIMARY) HYPERTENSION Qualifiers: Hypertension type: essential hypertension Qualified Code(s): I10 - Essential (primary) hypertension (6) Anemia Assessment/Plan: -continue iron supplementation Code(s): D64.9 - ANEMIA, UNSPECIFIED Qualifiers: Anemia type: iron deficiency
[2017-05-30] MEDS ORDERED: MAG HYDROX/AL HYDROX/SIMETH 30 ML UNIT-DOSE CUP PO PRN (17:02)
[2017-05-30] MEDS ORDERED: oxyCODONE HCL 5 MG TABLET PO PRN (17:02)
[2017-05-30] MEDS ORDERED: POLYETHYLENE GLYCOL 3350 119 GM BTL PO PRN (17:02)
[2017-05-30] MEDS ORDERED: guaiFENesin/D-METHORPHAN HB 10 ML UNIT-DOSE CUPS PO PRN (17:02)
[2017-05-30] MEDS ORDERED: ONDANSETRON 4 MG TABLET PO PRN (17:02)
[2017-05-30] MEDS ORDERED: ACETAMINOPHEN 325 MG TABLET (FP) PO PRN (17:02)
[2017-05-30] MEDS ORDERED: ALBUTEROL SO4 2.5/IPRATROPIUM 0.5 INH SOL 3 ML VIAL.NEB. NEB PRN (17:02)
[2017-05-30] MEDS ORDERED: SODIUM CHLORIDE 1,000 ML IV SCH (17:15)
--- NOTE | 2017-05-30 17:40 | PDOC ---
Attending Attestation - Resident Resident Name: Thompson,Mary - ED Attending Attestation I have performed the following: I have examined & evaluated the patient, The case was reviewed & discussed with the resident, I agree w/resident's findings & plan, Exceptions are as noted - HPI HPI: 05/30/17 17:37 77 yo M wtih h/o osteo spine, epidural abscess, subsequent bactermia and recent cholecystectomy here with c/o syncopal episode. has been seen by nuerology for several similar epsiodes which were believed to be abscense seizures. follows with dr vasquez. no f/c no abd pain tolerating PO. no postictal period. - Physicial Exam PE: 05/30/17 17:38 awake alert lungs clear heart rrr nomrg abd soft nt nd. ext wwp 5/5 all four ext. skin warm and dry. - Medical Decision Making 05/30/17 17:38 differential : asbcence siezres, vagal and rosa cardia or other dysrhtymia. infection. plan ua labs cxr tele. will d/w dr. vasquez 05/30/17 17:39 d/w pedro would like mri head per pt nuerologist. will admit to tele obesrvation ro other causes such as dysrntymia. d/w dr marie.
[2017-05-30] MEDS ORDERED: PREGABALIN 50 MG CAPSULE ONE (17:43)
[2017-05-30] MEDS ORDERED: PREGABALIN 100 MG CAPSULE ONE (17:44)
[2017-05-30] MEDS ORDERED: FERROUS SO4 325 MG TABLET (FP) ONE (17:46)
[2017-05-30] MEDS: FERROUS SO4 325 MG TABLET (FP) PO SCH (17:47)
[2017-05-30] MEDS: PREGABALIN 75 MG CAPSULE PO SCH ×2 (17:47→22:15)
--- NOTE | 2017-05-30 21:26 | EKG ---
Test Reason : Blood Pressure : / mmHG Vent. Rate : 077 BPM Atrial Rate : 077 BPM P-R Int : 184 ms QRS Dur : 092 ms QT Int : 404 ms P-R-T Axes : 009 -24 -08 degrees QTc Int : 457 ms NORMAL SINUS RHYTHM VOLTAGE CRITERIA FOR LEFT VENTRICULAR HYPERTROPHY ABNORMAL ECG WHEN COMPARED WITH ECG OF 19-MAY-2017 14:07, NO SIGNIFICANT CHANGE WAS FOUND Confirmed by MATEO MACKEY MD ([id number]) on 05/30/2017 9:25:43 PM Referred By: Confirmed By:MATEO MACKEY MD
[2017-05-30] MEDS ORDERED: MELATONIN 1 MG TABLET PO ONE (22:00)
[2017-05-30] MEDS: DOCUSATE SODIUM 100 MG CAPSULE (FP) PO SCH (22:16)
[2017-05-30] MEDS: METOPROLOL TARTRATE 50 MG TABLET (FP) PO SCH (22:16)
[2017-05-30] MEDS: APIXABAN 5 MG TABLET PO SCH (22:16)
[2017-05-30] MEDS: MAGNESIUM OXIDE 400 MG TABLET (FP) PO SCH (22:16)
[2017-05-30] MEDS: MONTELUKAST NA 10 MG TABLET PO SCH (22:16)
[2017-05-30] MEDS: SENNOSIDES 8.6MG TABLET (FP) PO SCH (22:16)
[2017-05-30] MEDS: FLUTICASONE/SALMETEROL 100 MCG/50 MCG DISKUS IH SCH (22:17)
[2017-05-30] MEDS: BISACODYL 10 MG SUPP.RECT RC SCH (22:17)
[2017-05-30 22:43] LABS: PH,URINE 7.5 (5.0-8.0); URINE APPEARANCE CLEAR; URINE BILIRUBIN NEGATIVE (NEGATIVE); URINE BLOOD NEGATIVE (NEGATIVE); URINE COLOR LT. YELLOW; URINE GLUCOSE (UA) NEGATIVE (NEGATIVE); URINE KETONE NEGATIVE (NEGATIVE); URINE NITRITE NEGATIVE (NEGATIVE); URINE PROTEIN NEGATIVE (NEGATIVE); URINE UROBILINOGEN 0.2 mg/dL (0.2-1.0)
[2017-05-31] MEDS: DOCUSATE SODIUM 100 MG CAPSULE (FP) PO SCH ×3 (06:02→22:17)
[2017-05-31] MEDS: PREGABALIN 75 MG CAPSULE PO SCH ×3 (06:02→22:17)
[2017-05-31 08:33] LABS: BASOPHIL 0.8 % (0-2.0); EOSINOPHIL 6.3 % (0-4.5); MCH 28.2 pg (25.7-33.7); MEAN CELL VOLUME 87.9 fl (80-96); MEAN PLT VOLUME 8.5 fl (7.5-11.1); NEUTROPHILS 64.1 % (42.8-82.8); PLATELET COUNT 333 K/MM3 (134-434); RDW 15.3 % (11.9-15.9); WHITE BLOOD COUNT 7.1 K/mm3 (4.0-10.0)
[2017-05-31 09:10] LABS: ANION GAP 11 (8-16); CO2 28 mmol/L (21-32); CREATININE 0.5 mg/dL (0.7-1.3); GLUCOSE,RANDOM 66 mg/dL (74-106); MAGNESIUM 2.1 mg/dL (1.8-2.4)
[2017-05-31] MEDS: METOPROLOL TARTRATE 50 MG TABLET (FP) PO SCH ×2 (10:16→22:17)
[2017-05-31] MEDS: FLUTICASONE/SALMETEROL 100 MCG/50 MCG DISKUS IH SCH ×2 (10:16→22:18)
[2017-05-31] MEDS: FERROUS SO4 325 MG TABLET (FP) PO SCH ×2 (10:16→18:03)
[2017-05-31] MEDS: SENNOSIDES 8.6MG TABLET (FP) PO SCH ×2 (10:16→22:17)
[2017-05-31] MEDS: ASCORBIC ACID 500 MG TABLET (FP) PO SCH (10:16)
[2017-05-31] MEDS: PANTOPRAZOLE 20 MG TABLET (FP) PO SCH (10:16)
[2017-05-31] MEDS: APIXABAN 5 MG TABLET PO SCH ×2 (10:16→22:17)
[2017-05-31] MEDS: MAGNESIUM OXIDE 400 MG TABLET (FP) PO SCH ×2 (10:16→22:17)
[2017-05-31] MEDS: DULoxetine HCL 30 MG CAPSULE.DR (FP) PO SCH (10:17)
[2017-05-31] MEDS: FOLIC ACID 1 MG TABLET (FP) PO SCH (10:17)
--- NOTE | 2017-05-31 10:41 | CONSULT ---
Consult - text type - Consultation Consultation Note: Neurology Admitting History and Physical 77 year old male who presents from [facility] for repeated episodes of passing out. He was recently discharged after having a cholecystectomy and was at [facility] for rehabilitation. He was doing well, but he says that he will begin to feel a tickle in his throat and begins to cough. He says if he drinks something it will resolve. However if he continues to cough it is noted that he passes out. He states he does not remember these episodes but per staff at [facility] he becomes unresponsive for approximately 10-15 seconds and then he recovers. Neurologically stable during my evaluation and cognitively intact. No abnormal movements noted and no significant neurologic complaints. He was wondering why he's even in the hospital and we had an extensive conversation regarding why. - Past Medical History Cardiovascular: Yes: AFIB, HTN Pulmonary: Yes: COPD Gastrointestinal: Yes: Other (history of choledocholithiasis s/p ERCP with Dr. 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[employer] History of Recent Travel: Yes (as above) Home Medications - Allergies Allergies/Adverse Reactions: Allergies Allergy/AdvReac Type Severity Reaction Status Date / Time aloe Allergy Severe Rash Verified 05/30/17 13:53 aloe vera Allergy Severe Rash Verified 05/30/17 13:53 - Home Medications Home Medications: Ambulatory Orders Acetaminophen [Tylenol] 650 mg PO Q4H PRN 05/16/17 Ascorbate Calcium [Vitamin C] 500 mg PO DAILY 05/16/17 Bisacodyl [Dulcolax] 10 mg RC HS 05/16/17 Diclofenac Sodium [Voltaren] 100 gm TP BID 05/16/17 Docusate Sodium [Colace -] 100 mg PO TID 05/16/17 Duloxetine HCl [Cymbalta -] 30 mg PO DAILY 05/16/17 Folic Acid 1 mg PO DAILY 05/16/17 Guaifenesin Dm [Robitussin Dm -] 5 ml PO Q4H PRN 05/16/17 Ipratropium/Albuterol Sulfate [Iprat-Albut 0.5-3(2.5) mg/3 ml] 3 ml IH Q4H PRN 05/16/17 Lactobacillus Acidophilus [Bacid -] 1 each PO DAILY 05/16/17 Lidocaine 2% Jelly [Xylocaine 2% Jelly] 0 applic TP BID 05/16/17 Mag Hydrox/Al Hydrox/Simeth [Mylanta Oral Suspension -] 30 ml PO Q4H PRN Magnesium Oxide [Mag-Ox -] 400 ml PO BID 05/16/17 Melatonin 3 mg PO HS 05/16/17 Metoprolol Tartrate [Lopressor] 50 mg PO BID 05/16/17 Montelukast Na [Singulair -] 10 mg PO HS 05/16/17 Nystatin Cream [Mycostatin Cream -] 1 applic TP BID 05/16/17 Omeprazole 20 mg PO DAILY 05/16/17 Ondansetron [Zofran -] 4 mg PO Q8H PRN 05/16/17 Polyethylene Glycol 3350 [Miralax 119 gm Btl -] 17 gm PO DAILY PRN 05/16/17 Pregabalin [Lyrica -] 150 mg PO Q8H 05/16/17 Salmeterol/Fluticasone [Advair 100Mcg/50Mcg -] 1 inh PO BID 05/16/17 Sennosides [Senna] 2 tab PO BID 05/16/17 Apixaban [Eliquis -] 5 mg PO BID tablet 05/20/17 Ferrous Sulfate [Feosol] 325 mg PO BIDWM tablet 05/20/17 Oxycodone HCl [Roxicodone -] 5 mg PO Q4H PRN #60 tablet MDD 4 05/20/17 Levetiracetam [Keppra -] 500 mg PO BID 05/30/17 Magnesium Hydrox 2400MG/30Ml [Milk of Magnesia -] 30 ml PO DAILY PRN 05/30/17 Family Disease History - Family Disease History Family Disease History: Other: Father ( 44: CVA), Mother ( 93: old age) , Sister (2 sisters, healthy) Review of Systems Findings/Remarks: Full review of systems obtained, as per HPI and otherwise negative. Physical Examination Vital Signs: Vital Signs Temperature Pulse Rate 84 05/30/17 16:40 Respiratory Rate 18 05/30/17 16:40 Blood Pressure 146/91 05/30/17 16:40 O2 Sat by Pulse Oximetry (%) 100 05/30/17 16:40 Constitutional: Yes: Well Nourished, No Distress, Calm Eyes: Yes: Conjunctiva Clear, EOM Intact, PERRL HENT: Yes: Atraumatic, Normocephalic Cardiovascular: Yes: Regular Rate and Rhythm. No: Gallop, Murmur, Rub Respiratory: Yes: Regular, CTA Bilaterally. No: Rales, Rhonchi, Wheezes Gastrointestinal: Yes: Normal Bowel Sounds, Soft. No: Distention, Tenderness Extremities: Yes: WNL Neurology: CN intact, awake, alert, conversive, strength normal, sensory intact , finger to nose normal, gait deferred CBCD WBC 7.1 K/mm3 (4.0-10.0) D 05/31/17 07:00 RBC 3.65 M/mm3 (4.00-5.60) L 05/31/17 07:00 Hgb 10.3 GM/dL (11.7-16.9) L 05/31/17 07:00 Hct 32.1 % (35.4-49) L 05/31/17 07:00 MCV 87.9 fl (80-96) 05/31/17 07:00 MCHC 32.0 g/dl (32.0-35.9) 05/31/17 07:00 RDW 15.3 % (11.9-15.9) 05/31/17 07:00 Plt Count 333 K/MM3 (134-434) 05/31/17 07:00 MPV 8.5 fl (7.5-11.1) 05/31/17 07:00 CMP Sodium 140 mmol/L (136-145) 05/31/17 07:00 Potassium 4.2 mmol/L (3.5-5.1) 05/31/17 07:00 Chloride 101 mmol/L (98-107) 05/31/17 07:00 Carbon Dioxide 28 mmol/L (21-32) 05/31/17 07:00 Anion Gap 11 (8-16) 05/31/17 07:00 BUN 9 mg/dL (7-18) 05/31/17 07:00 Creatinine 0.5 mg/dL (0.7-1.3) L 05/31/17 07:00 Creat Clearance w eGFR > 60 (>60) 05/30/17 14:35 Calcium 9.0 mg/dL (8.5-10.1) 05/31/17 07:00 Total Bilirubin 0.3 mg/dL (0.2-1.0) 05/30/17 14:35 AST 10 U/L (15-37) L D 05/30/17 14:35 ALT 10 U/L (12-78) L D 05/30/17 14:35 Alkaline Phosphatase 95 U/L (45-117) 05/30/17 14:35 Total Protein 7.5 g/dl (6.4-8.2) 05/30/17 14:35 Albumin 2.5 g/dl (3.4-5.0) L 05/30/17 14:35 Imaging - Results Chest X-ray: Report Reviewed, Image Reviewed Plan 77 year old male who presents from [facility] for repeated episodes of passing out. He was recently discharged after having a cholecystectomy and was at [facility] for rehabilitation. He was doing well, but he says that he will begin to feel a tickle in his throat and begins to cough. He says if he drinks something it will resolve. However if he continues to cough it is noted that he passes out. He states he does not remember these episodes but per staff at [facility] he becomes unresponsive for approximately 10-15 seconds and then he recovers. Neurologically stable during my evaluation and cognitively intact. No abnormal movements noted and no significant neurologic complaints. He was wondering why he's even in the hospital and we had an extensive conversation regarding why. EEG ordered MRI brain ordered Cardiology consulted Continue Lopressor and Eliquis for Afib CHeck for orthostatic hypotension Monitor HTN, on Lopressor
--- NOTE | 2017-05-31 11:22 | PN ---
Progress Note (short form) - Note Progress Note: The attending MD at [facility] called me in the office yesterday telling me that the patient had a syncopal episode at [facility] for 3 days in a row on Tuesday, Tuesday and Tuesday. They were so concerned that they were not letting him OOB or going to therapy because of these events. This was the same event that caused him to have a nursing alert here on the Tuesday before his transfer back to [facility] the day after Day. He was even placed on Keppra several days ago at [facility] for the possibility of seizure disorder. He was not safe to stay at [facility] and needless to say was not safe to go home so hospital admission was a medical necessity. If he were to have syncope while upright with no person around the risks are obvious. The pttern is the same in that he gets a foggy sensation; passes out and then recovers in less thn a minute. They can even happen in bed and he does not always cough before these events. He has had an eventful 2 months with an admission here for MSSA sepsis, Acute Osteomyelitis and Discitis and epidural collection wit 8 weeks of antibiotics. On Exam: Vital Signs Temp 98.2 F 05/31/17 08:05 Pulse 96 H 05/31/17 08:05 Resp 14 05/31/17 08:05 BP 148/94 05/31/17 08:05 Pulse Ox 96 05/30/17 22:00 Intake & Output 05/30/17 05/30/17 05/31/17 11:59 23:59 11:59 Intake Total 400 Output Total 450 Balance -50 Weight 163 lb Intake: Oral 400 Output: Urine 450 Void 450 Other: Voiding Method Urinal Bowel Movement No Height 5 ft 10 in Body Mass Index (BMI) 23.3 Weight Measurement Method Stated by Patient Alert Slightly pale Chest: Few rhonhi at bases Abd: Soft Ext: SD's; no edema Abnormal Lab Results 05/30/17 05/30/17 05/30/17 14:35 14:35 14:35 WBC 10.3 H RBC 3.93 L Hgb 11.0 L Hct 34.5 L MCHC 31.9 L Eosinophils % INR 1.65 H Creatinine 0.6 L Random Glucose AST 10 L D ALT 10 L D Albumin 2.5 L 05/31/17 05/31/17 07:00 07:00 WBC RBC 3.65 L Hgb 10.3 L Hct 32.1 L MCHC Eosinophils % 6.3 H INR Creatinine 0.5 L Random Glucose 66 L D AST ALT Albumin IMP: Recurrent syncope ?Seizure Disorder ?Pacemaker studies needed Recent MSSA Sepsis Recent Osteomyelitis and Discitis and Epidural Collection Hypertension LS Disc Disease Plan: Cardiology EValuation Telemetry Neurology Evaluation EEG MRI Brain ?EP studies
[2017-05-31] MEDS ORDERED: SODIUM CHLORIDE 1,000 ML IV SCH (11:23)
--- NOTE | 2017-05-31 12:07 | CON.CARD ---
Consult Consult Specialty:: Cardiology Referred by:: Dr. 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 He had an event while he was admitted to [facility] after the lap cholecystectomy when rapid response was called due to brief loss of consciousness. He was transferred to telemetry unit where no arrhythmias were detected. He was transferred to [facility] where he had few more episode of these loss of consciousness and he claims that monitor was placed during these episodes. He was sent to the hospital for further evaluation. He is awake and alert. He denies chest pain, shortness of breath or palpitations. He denies paroxysmal nocturnal dyspnea or orthopnea. He denies fever or chills. He denies headache or lightheadedness. Cardiology consultation was called for further assessment and plan. - History Source History Provided By: Patient, Medical Record Limitations to Obtaining History: No Limitations - Past Medical History Cardio/Vascular: Yes: AFIB, HTN Pulmonary: Yes: COPD Gastrointestinal: Yes: Other (history of choledocholithiasis s/p ERCP with Dr. 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 [employer] History of Recent Travel: Yes (as above) Home Medications - Allergies Allergies/Adverse Reactions: Allergies Allergy/AdvReac Type Severity Reaction Status Date / Time aloe Allergy Severe Rash Verified 05/30/17 13:53 aloe vera Allergy Severe Rash Verified 05/30/17 13:53 - Home Medications Home Medications: Ambulatory Orders Acetaminophen [Tylenol] 650 mg PO Q4H PRN 05/16/17 Ascorbate Calcium [Vitamin C] 500 mg PO DAILY 05/16/17 Bisacodyl [Dulcolax] 10 mg RC HS 05/16/17 Diclofenac Sodium [Voltaren] 100 gm TP BID 05/16/17 Docusate Sodium [Colace -] 100 mg PO TID 05/16/17 Duloxetine HCl [Cymbalta -] 30 mg PO DAILY 05/16/17 Folic Acid 1 mg PO DAILY 05/16/17 Guaifenesin Dm [Robitussin Dm -] 5 ml PO Q4H PRN 05/16/17 Ipratropium/Albuterol Sulfate [Iprat-Albut 0.5-3(2.5) mg/3 ml] 3 ml IH Q4H PRN 05/16/17 Lactobacillus Acidophilus [Bacid -] 1 each PO DAILY 05/16/17 Lidocaine 2% Jelly [Xylocaine 2% Jelly] 0 applic TP BID 05/16/17 Mag Hydrox/Al Hydrox/Simeth [Mylanta Oral Suspension -] 30 ml PO Q4H PRN Magnesium Oxide [Mag-Ox -] 400 ml PO BID 05/16/17 Melatonin 3 mg PO HS 05/16/17 Metoprolol Tartrate [Lopressor] 50 mg PO BID 05/16/17 Montelukast Na [Singulair -] 10 mg PO HS 05/16/17 Nystatin Cream [Mycostatin Cream -] 1 applic TP BID 05/16/17 Omeprazole 20 mg PO DAILY 05/16/17 Polyethylene Glycol 3350 [Miralax 119 gm Btl -] 17 gm PO DAILY PRN 05/16/17 Pregabalin [Lyrica -] 150 mg PO Q8H 05/16/17 Salmeterol/Fluticasone [Advair 100Mcg/50Mcg -] 1 inh PO BID 05/16/17 Sennosides [Senna] 2 tab PO BID 05/16/17 Apixaban [Eliquis -] 5 mg PO BID tablet 05/20/17 Ferrous Sulfate [Feosol] 325 mg PO BIDWM tablet 05/20/17 Oxycodone HCl [Roxicodone -] 5 mg PO Q4H PRN #60 tablet MDD 4 05/20/17 Levetiracetam [Keppra -] 500 mg PO BID 05/30/17 Family Disease History - Family Disease History Family Disease History: Other: Father ( 44: CVA), Mother ( 93: old age) , Sister (2 sisters, healthy) Review of Systems - Review of Systems Constitutional: denies: Chills, Fever Cardiovascular: denies: Chest Pain, Palpitations, Shortness of Breath Respiratory: reports: Cough. denies: Hemoptysis, Orthopnea, PND, SOB, SOB on Exertion Gastrointestinal: denies: Abdominal Pain, Constipation, Diarrhea, Melena, Nausea , Rectal Bleeding, Vomiting Musculoskeletal: denies: Joint Pain Neurological: reports: Dizziness, Syncope. denies: Headache, Seizure Vital Signs: Vital Signs Temperature 98.2 F 05/31/17 08:05 Pulse Rate 82 05/31/17 11:32 Respiratory Rate 14 05/31/17 08:05 Blood Pressure 118/74 05/31/17 11:32 O2 Sat by Pulse Oximetry (%) 96 05/30/17 22:00 Neck: Yes: Supple Respiratory: Yes: CTA Bilaterally Gastrointestinal: Yes: Normal Bowel Sounds, Soft. No: Tenderness Cardiovascular: Yes: Regular Rate and Rhythm JVD: No Carotid Bruit: No PMI: Non-Displaced Heart Sounds: Yes: S1, S2 Edema: No - Other Data Labs, Other Data: CBC, BMP 05/31/17 07:00 05/31/17 07:00 INR, PTT INR 1.65 (0.82-1.09) H 05/30/17 14:35 Normal sinus rhythm with LVH Imaging - Results Chest X-ray: Report Reviewed (Right basilar atelectasis) MRI: Report Reviewed (Brain MRI noted) EKG: Report Reviewed Problem List - Problems (1) Anemia Code(s): D64.9 - ANEMIA, UNSPECIFIED Qualifiers: Anemia type: iron deficiency (2) Atrial fibrillation Code(s): I48.91 - UNSPECIFIED ATRIAL FIBRILLATION Qualifiers: Atrial fibrillation type: paroxysmal Qualified Code(s): I48.0 - Paroxysmal atrial fibrillation (3) COPD (chronic obstructive pulmonary disease) Code(s): J44.9 - CHRONIC OBSTRUCTIVE PULMONARY DISEASE, UNSPECIFIED Qualifiers : COPD type: unspecified COPD Qualified Code(s): J44.9 - Chronic obstructive pulmonary disease, unspecified (4) Cholecystitis with cholelithiasis Code(s): K80.10 - CALCULUS OF GALLBLADDER W CHRONIC CHOLECYST W/O OBSTRUCTION (5) Discitis Code(s): M46.40 - DISCITIS, UNSPECIFIED, SITE UNSPECIFIED (6) HTN (hypertension) Code(s): I10 - ESSENTIAL (PRIMARY) HYPERTENSION Qualifiers: Hypertension type: essential hypertension Qualified Code(s): I10 - Essential (primary) hypertension (7) MSSA (methicillin susceptible Staphylococcus aureus) septicemia Code(s): A41.01 - SEPSIS DUE TO METHICILLIN SUSCEPTIBLE STAPHYLOCOCCUS AUREUS (8) S/P laparoscopic cholecystectomy Code(s): Z90.49 - ACQUIRED ABSENCE OF OTHER SPECIFIED PARTS OF DIGESTIVE TRACT (9) Syncope Code(s): R55 - SYNCOPE AND COLLAPSE Assessment/Plan 1. Syncope - etiology to be determined, rule out arrhythmias, rule out either or both vasodepressive +/- cardioinhibitory 2. Post laparoscopic cholecystectomy - post surgically stable 3. PAF remains in sinus rhythm [id number] score of 3 4. Hypertension 5. History of discitis and para-spinal abscess 6. COPD PLAN: 1. Monitor on telemetry 2. Continue Lopressor as tolerated 3. Continue Eliquis 4. Further cardiac work up is to be defined. Possible indication for tilt table testing, possible extended monitoring including event monitor or loop recorder before committing to a pacemaker. Will discuss with junior high school principal at [facility] for advice and whether there is an indication for EP study Further plans are to follow Jaquan Calvert MD
[2017-05-31] MEDS ORDERED: PT OWN MED DRAWER 7, Y5N ONE (22:08)
[2017-05-31] MEDS: MONTELUKAST NA 10 MG TABLET PO SCH (22:17)
[2017-05-31] MEDS: BISACODYL 10 MG SUPP.RECT RC SCH (22:18)
[2017-05-31] MEDS: MELATONIN 1 MG TABLET PO SCH (22:18)
[2017-06-01] MEDS: PREGABALIN 75 MG CAPSULE PO SCH ×3 (06:48→21:54)
[2017-06-01] MEDS: DOCUSATE SODIUM 100 MG CAPSULE (FP) PO SCH ×3 (06:48→21:40)
--- NOTE | 2017-06-01 09:04 | PN ---
Progress Note (short form) - Note Progress Note: No events overnite Await EEG and MRI reports. BP standing yesterday was under 100 systolic but he had no symptoms ? Midodrine trial Sad Had BM On Exam: Vital Signs Temp 98.2 F 06/01/17 08:10 Pulse 94 H 06/01/17 08:10 Resp 14 06/01/17 08:10 BP 136/76 06/01/17 08:10 Pulse Ox 95 05/31/17 21:00 Intake & Output 05/31/17 05/31/17 06/01/17 11:59 23:59 11:59 Intake Total 400 268 10 Output Total 450 350 Balance -50 -82 10 Intake: IV 268 10 Normal Saline - 1,000 ml 100 @ 50 mls/hr IV ASDIR DOMITILA Rx#:[id number] Normal Saline - 1,000 ml 168 10 @ 42 mls/hr IV ASDIR DOMITILA Rx#:[id number] Oral 400 Output: Urine 450 350 Void 450 350 Other: Voiding Method Urinal Urinal Bowel Movement No Yes Alert Chest: Few rhonchi at bases Cor: Reg Abd: Soft and nontender Ext: Slight Achilles tendon tenderness No edema IMP: Recurrent Syncope of unknown origin Recent MSSA Sepsis Hx recent acute Osteomyelitis`is of the spine and Lumbar discs Achilles tendonitis Hypertension Orthostatic BP changes recent Lap Cholecystectomy. Await EEG and MRI Brain and Cardiology input.
[2017-06-01] MEDS: SENNOSIDES 8.6MG TABLET (FP) PO SCH ×2 (10:10→21:54)
[2017-06-01] MEDS: APIXABAN 5 MG TABLET PO SCH ×2 (10:10→21:54)
[2017-06-01] MEDS: PANTOPRAZOLE 20 MG TABLET (FP) PO SCH (10:10)
[2017-06-01] MEDS: DULoxetine HCL 30 MG CAPSULE.DR (FP) PO SCH (10:10)
[2017-06-01] MEDS: MAGNESIUM OXIDE 400 MG TABLET (FP) PO SCH ×2 (10:10→21:54)
[2017-06-01] MEDS: FOLIC ACID 1 MG TABLET (FP) PO SCH (10:10)
[2017-06-01] MEDS: ASCORBIC ACID 500 MG TABLET (FP) PO SCH (10:11)
[2017-06-01] MEDS: METOPROLOL TARTRATE 50 MG TABLET (FP) PO SCH ×2 (10:11→21:54)
[2017-06-01] MEDS: FERROUS SO4 325 MG TABLET (FP) PO SCH ×2 (10:11→17:37)
[2017-06-01] MEDS: FLUTICASONE/SALMETEROL 100 MCG/50 MCG DISKUS IH SCH ×2 (10:15→21:53)
--- NOTE | 2017-06-01 10:15 | PN ---
Progress Note (short form) - Note Progress Note: Neurology HPI 77 year old male who presents from [facility] for repeated episodes of passing out. He was recently discharged after having a cholecystectomy and was at [facility] for rehabilitation. He was doing well, but he says that he will begin to feel a tickle in his throat and begins to cough. He says if he drinks something it will resolve. However if he continues to cough it is noted that he passes out. He states he does not remember these episodes but per staff at [facility] he becomes unresponsive for approximately 10-15 seconds and then he recovers. Neurologically stable during my evaluation and cognitively intact. EEG completed and reported normal by Dr. Meredith. CD completed and reviewed as well and did not show hemodynamically significant stenosis. MRI brain also reviewed including images and did not show acute changes. There was mention of artifact noted. Patient was ambulating and with therapist this morning, doing well with walker. Active Medications Acetaminophen (Tylenol -) 650 mg PO Q4H PRN PRN Reason: PAIN Al Hydroxide/Mg Hydroxide (Mylanta Oral Suspension -) 30 ml PO Q4H PRN PRN Reason: dyspepsia/abdominal discomfort Albuterol/Ipratropium (Duoneb -) 1 amp NEB Q4H PRN PRN Reason: SHORTNESS OF BREATH Apixaban (Eliquis -) 5 mg PO BID [facility] Last Admin: 05/31/17 22:17 Dose: 5 mg Ascorbic Acid (Vitamin C -) 500 mg PO DAILY [facility] Last Admin: 05/31/17 10:16 Dose: 500 mg Bisacodyl (Dulcolax Suppository -) 10 mg RC HS [facility] Last Admin: 05/31/17 22:18 Dose: Not Given Docusate Sodium (Colace -) 100 mg PO TID [facility] Last Admin: 06/01/17 06:48 Dose: Not Given Duloxetine HCl (Cymbalta -) 30 mg PO DAILY [facility] Last Admin: 05/31/17 10:17 Dose: 30 mg Ferrous Sulfate (Feosol -) 325 mg PO BIDWM [facility] Last Admin: 05/31/17 18:03 Dose: 325 mg Folic Acid (Folic Acid -) 1 mg PO DAILY [facility] Last Admin: 05/31/17 10:17 Dose: 1 mg Guaifenesin (Robitussin Dm -) 5 ml PO Q4H PRN PRN Reason: COUGH Magnesium Oxide (Mag-Ox -) 400 mg PO BID [facility] Last Admin: 05/31/17 22:17 Dose: 400 mg Melatonin (Melatonin) 3 mg PO [facility] Last Admin: 05/31/17 22:18 Dose: 3 mg Metoprolol Tartrate (Lopressor -) 50 mg PO BID [facility] Last Admin: 05/31/17 22:17 Dose: 50 mg Montelukast Sodium (Singulair -) 10 mg PO [facility] Last Admin: 05/31/17 22:17 Dose: 10 mg Ondansetron HCl (Zofran -) 4 mg PO Q8H PRN PRN Reason: NAUSEA AND/OR VOMITING Oxycodone HCl (Roxicodone -) 5 mg PO Q4H PRN PRN Reason: MILD PAIN Pantoprazole Sodium (Protonix -) 20 mg PO DAILY [facility] Last Admin: 05/31/17 10:16 Dose: 20 mg Polyethylene Glycol (Miralax (For Daily Use) -) 17 gm PO DAILY PRN PRN Reason: CONSTIPATION Pregabalin (Lyrica -) 150 mg PO TID [facility] Last Admin: 06/01/17 06:48 Dose: 150 mg Fluticasone/Salmeterol (Advair 100mcg/50mcg -) 1 puff IH BID [facility] Last Admin: 05/31/17 22:18 Dose: 1 puff Senna (Senna -) 2 tab PO BID [facility] Last Admin: 05/31/17 22:17 Dose: 2 tab Physical Examination Vital Signs Temperature 98.2 F 06/01/17 08:10 Pulse Rate 94 H 06/01/17 08:10 Respiratory Rate 14 06/01/17 08:10 Blood Pressure 136/76 06/01/17 08:10 O2 Sat by Pulse Oximetry (%) 95 05/31/17 21:00 Constitutional: Yes: Well Nourished, No Distress, Calm Eyes: Yes: Conjunctiva Clear, EOM Intact, PERRL HENT: Yes: Atraumatic, Normocephalic Cardiovascular: Yes: Regular Rate and Rhythm. No: Gallop, Murmur, Rub Respiratory: Yes: Regular, CTA Bilaterally. No: Rales, Rhonchi, Wheezes Gastrointestinal: Yes: Normal Bowel Sounds, Soft. No: Distention, Tenderness Extremities: Yes: WNL Neurology: CN intact, awake, alert, conversive, strength normal, sensory intact , finger to nose normal, gait deferred CBCD WBC 7.1 K/mm3 (4.0-10.0) D 05/31/17 07:00 RBC 3.65 M/mm3 (4.00-5.60) L 05/31/17 07:00 Hgb 10.3 GM/dL (11.7-16.9) L 05/31/17 07:00 Hct 32.1 % (35.4-49) L 05/31/17 07:00 MCV 87.9 fl (80-96) 05/31/17 07:00 MCHC 32.0 g/dl (32.0-35.9) 05/31/17 07:00 RDW 15.3 % (11.9-15.9) 05/31/17 07:00 Plt Count 333 K/MM3 (134-434) 05/31/17 07:00 MPV 8.5 fl (7.5-11.1) 05/31/17 07:00 CMP Sodium 140 mmol/L (136-145) 05/31/17 07:00 Potassium 4.2 mmol/L (3.5-5.1) 05/31/17 07:00 Chloride 101 mmol/L (98-107) 05/31/17 07:00 Carbon Dioxide 28 mmol/L (21-32) 05/31/17 07:00 Anion Gap 11 (8-16) 05/31/17 07:00 BUN 9 mg/dL (7-18) 05/31/17 07:00 Creatinine 0.5 mg/dL (0.7-1.3) L 05/31/17 07:00 Creat Clearance w eGFR > 60 (>60) 05/30/17 14:35 Calcium 9.0 mg/dL (8.5-10.1) 05/31/17 07:00 Total Bilirubin 0.3 mg/dL (0.2-1.0) 05/30/17 14:35 AST 10 U/L (15-37) L D 05/30/17 14:35 ALT 10 U/L (12-78) L D 05/30/17 14:35 Alkaline Phosphatase 95 U/L (45-117) 05/30/17 14:35 Total Protein 7.5 g/dl (6.4-8.2) 05/30/17 14:35 Albumin 2.5 g/dl (3.4-5.0) L 05/30/17 14:35 Imaging - Results Chest X-ray: Report Reviewed, Image Reviewed EEG, CD reviewed Plan 77 year old male who presents from [facility] for repeated episodes of passing out. He was recently discharged after having a cholecystectomy and was at [facility] for rehabilitation. He was doing well, but he says that he will begin to feel a tickle in his throat and begins to cough. He says if he drinks something it will resolve. However if he continues to cough it is noted that he passes out. He states he does not remember these episodes but per staff at [facility] he becomes unresponsive for approximately 10-15 seconds and then he recovers. Neurologically stable during my evaluation and cognitively intact. No abnormal movements noted and no significant neurologic complaints. He was wondering why he's even in the hospital and we had an extensive conversation regarding why. EEG reviewed MRI brain reviewed CD reviewed Discussed with patient Cardiology following Continue Lopressor and Eliquis for Afib CHeck for orthostatic hypotension Monitor HTN, on Lopressor Continue gait training, physical therapy Uses walker and is in need of it
--- NOTE | 2017-06-01 17:52 | PN ---
Progress Note, Physician History of Present Illness: Syncopal episodes are preceded by coughing spells. No palpitations or further near or true syncope. - Current Medication List Current Medications: Active Medications Acetaminophen (Tylenol -) 650 mg PO Q4H PRN PRN Reason: PAIN Al Hydroxide/Mg Hydroxide (Mylanta Oral Suspension -) 30 ml PO Q4H PRN PRN Reason: dyspepsia/abdominal discomfort Albuterol/Ipratropium (Duoneb -) 1 amp NEB Q4H PRN PRN Reason: SHORTNESS OF BREATH Apixaban (Eliquis -) 5 mg PO BID [facility] Last Admin: 06/01/17 10:10 Dose: 5 mg Ascorbic Acid (Vitamin C -) 500 mg PO DAILY [facility] Last Admin: 06/01/17 10:11 Dose: 500 mg Bisacodyl (Dulcolax Suppository -) 10 mg RC [facility] Last Admin: 05/31/17 22:18 Dose: Not Given Docusate Sodium (Colace -) 100 mg PO TID [facility] Last Admin: 06/01/17 14:58 Dose: 100 mg Duloxetine HCl (Cymbalta -) 30 mg PO DAILY [facility] Last Admin: 06/01/17 10:10 Dose: 30 mg Ferrous Sulfate (Feosol -) 325 mg PO BIDWM [facility] Last Admin: 06/01/17 17:37 Dose: 325 mg Folic Acid (Folic Acid -) 1 mg PO DAILY [facility] Last Admin: 06/01/17 10:10 Dose: 1 mg Guaifenesin (Robitussin Dm -) 5 ml PO Q4H PRN PRN Reason: COUGH Magnesium Oxide (Mag-Ox -) 400 mg PO BID [facility] Last Admin: 06/01/17 10:10 Dose: 400 mg Melatonin (Melatonin) 3 mg PO HS [facility] Last Admin: 05/31/17 22:18 Dose: 3 mg Metoprolol Tartrate (Lopressor -) 50 mg PO BID [facility] Last Admin: 06/01/17 10:11 Dose: 50 mg Montelukast Sodium (Singulair -) 10 mg PO HS [facility] Last Admin: 05/31/17 22:17 Dose: 10 mg Ondansetron HCl (Zofran -) 4 mg PO Q8H PRN PRN Reason: NAUSEA AND/OR VOMITING Oxycodone HCl (Roxicodone -) 5 mg PO Q4H PRN PRN Reason: MILD PAIN Pantoprazole Sodium (Protonix -) 20 mg PO DAILY [facility] Last Admin: 06/01/17 10:10 Dose: 20 mg Polyethylene Glycol (Miralax (For Daily Use) -) 17 gm PO DAILY PRN PRN Reason: CONSTIPATION Pregabalin (Lyrica -) 150 mg PO TID [facility] Last Admin: 06/01/17 14:58 Dose: 150 mg Fluticasone/Salmeterol (Advair 100mcg/50mcg -) 1 puff IH BID [facility] Last Admin: 06/01/17 10:15 Dose: 1 puff Senna (Senna -) 2 tab PO BID [facility] Last Admin: 06/01/17 10:10 Dose: 2 tab - Objective Vital Signs: Vital Signs Temperature 98.8 F 06/01/17 14:00 Pulse Rate 85 06/01/17 14:00 Respiratory Rate 14 06/01/17 09:00 Blood Pressure 124/73 06/01/17 14:00 O2 Sat by Pulse Oximetry (%) 95 06/01/17 09:00 Constitutional: Yes: No Distress, Calm Neck: Yes: Supple Cardiovascular: Yes: Regular Rate and Rhythm Respiratory: Yes: Regular, Diminished Gastrointestinal: Yes: Normal Bowel Sounds, Soft Edema: No Labs: CBC, BMP 05/31/17 07:00 05/31/17 07:00 INR, PTT INR 1.65 (0.82-1.09) H 05/30/17 14:35 - ....Imaging EKG: Report Reviewed (Tele shows no events) Problem List - Problems (1) Transient loss of consciousness Code(s): R55 - SYNCOPE AND COLLAPSE (2) COPD (chronic obstructive pulmonary disease) Code(s): J44.9 - CHRONIC OBSTRUCTIVE PULMONARY DISEASE, UNSPECIFIED Qualifiers : COPD type: unspecified COPD Qualified Code(s): J44.9 - Chronic obstructive pulmonary disease, unspecified (3) HTN (hypertension) Code(s): I10 - ESSENTIAL (PRIMARY) HYPERTENSION Qualifiers: Hypertension type: essential hypertension Qualified Code(s): I10 - Essential (primary) hypertension (4) Paroxysmal atrial fibrillation with RVR Code(s): I48.0 - PAROXYSMAL ATRIAL FIBRILLATION Assessment/Plan 1. Post-tussive syncope - suspect neurocardiogenic, rule out arrhythmias, rule out either or both vasodepressive +/- cardioinhibitory 2. Post laparoscopic cholecystectomy - post surgically stable 3. PAF remains in sinus rhythm [id number] score of 3 4. Hypertension 5. History of discitis and paraspinal abscess 6. COPD PLAN: 1. Monitor on telemetry 2. Continue Lopressor 50 bid 3. Continue Eliquis 5 bid 4. Consider tilt table testing, possible extended monitoring including event monitor or loop recorder before committing to a pacemaker. Will discuss with board mixer tender at [facility] for advice and whether there is an indication for EP study
[2017-06-01] MEDS: BISACODYL 10 MG SUPP.RECT RC SCH (21:40)
[2017-06-01] MEDS: MONTELUKAST NA 10 MG TABLET PO SCH (21:53)
[2017-06-01] MEDS: MELATONIN 1 MG TABLET PO SCH (21:53)
[2017-06-02] MEDS: DOCUSATE SODIUM 100 MG CAPSULE (FP) PO SCH ×3 (06:10→21:07)
[2017-06-02] MEDS: PREGABALIN 75 MG CAPSULE PO SCH ×3 (06:20→21:07)
--- NOTE | 2017-06-02 09:28 | PN ---
Progress Note, Physician History of Present Illness: No further near or true syncope, denies palpitations. No events on telemetry. - Current Medication List Current Medications: Active Medications Acetaminophen (Tylenol -) 650 mg PO Q4H PRN PRN Reason: PAIN Al Hydroxide/Mg Hydroxide (Mylanta Oral Suspension -) 30 ml PO Q4H PRN PRN Reason: dyspepsia/abdominal discomfort Albuterol/Ipratropium (Duoneb -) 1 amp NEB Q4H PRN PRN Reason: SHORTNESS OF BREATH Apixaban (Eliquis -) 5 mg PO BID COUNTS INCLUDE 234 BEDS AT [facility] Last Admin: 06/01/17 21:54 Dose: 5 mg Ascorbic Acid (Vitamin C -) 500 mg PO DAILY COUNTS INCLUDE 234 BEDS AT THE [facility] Last Admin: 06/01/17 10:11 Dose: 500 mg Bisacodyl (Dulcolax Suppository -) 10 mg RC [facility] Last Admin: 06/01/17 21:40 Dose: Not Given Docusate Sodium (Colace -) 100 mg PO TID COUNTS INCLUDE 234 BEDS AT THE [facility] Last Admin: 06/02/17 06:10 Dose: Not Given Duloxetine HCl (Cymbalta -) 30 mg PO DAILY COUNTS INCLUDE 234 BEDS AT THE [facility] Last Admin: 06/01/17 10:10 Dose: 30 mg Ferrous Sulfate (Feosol -) 325 mg PO BIDWM COUNTS INCLUDE 234 BEDS AT THE [facility] Last Admin: 06/01/17 17:37 Dose: 325 mg Folic Acid (Folic Acid -) 1 mg PO DAILY COUNTS INCLUDE 234 BEDS AT [facility] Last Admin: 06/01/17 10:10 Dose: 1 mg Guaifenesin (Robitussin Dm -) 5 ml PO Q4H PRN PRN Reason: COUGH Magnesium Oxide (Mag-Ox -) 400 mg PO BID COUNTS INCLUDE 234 BEDS AT [facility] Last Admin: 06/01/17 21:54 Dose: 400 mg Melatonin (Melatonin) 3 mg PO [facility] Last Admin: 06/01/17 21:53 Dose: 3 mg Metoprolol Tartrate (Lopressor -) 50 mg PO BID COUNTS INCLUDE 234 BEDS AT [facility] Last Admin: 06/01/17 21:54 Dose: 50 mg Montelukast Sodium (Singulair -) 10 mg PO [facility] Last Admin: 06/01/17 21:53 Dose: 10 mg Ondansetron HCl (Zofran -) 4 mg PO Q8H PRN PRN Reason: NAUSEA AND/OR VOMITING Oxycodone HCl (Roxicodone -) 5 mg PO Q4H PRN PRN Reason: MILD PAIN Pantoprazole Sodium (Protonix -) 20 mg PO DAILY COUNTS INCLUDE 234 BEDS AT [facility] Last Admin: 06/01/17 10:10 Dose: 20 mg Polyethylene Glycol (Miralax (For Daily Use) -) 17 gm PO DAILY PRN PRN Reason: CONSTIPATION Pregabalin (Lyrica -) 150 mg PO TID COUNTS INCLUDE 234 BEDS AT [facility] Last Admin: 06/02/17 06:20 Dose: 150 mg Fluticasone/Salmeterol (Advair 100mcg/50mcg -) 1 puff IH BID COUNTS INCLUDE 234 BEDS AT THE [facility] Last Admin: 06/01/17 21:53 Dose: 1 puff Senna (Senna -) 2 tab PO BID COUNTS INCLUDE 234 BEDS AT [facility] Last Admin: 06/01/17 21:54 Dose: 2 tab - Objective Vital Signs: Vital Signs Temperature 98.6 F 06/02/17 06:00 Pulse Rate 82 06/02/17 06:00 Respiratory Rate 20 06/02/17 06:00 Blood Pressure 136/79 06/02/17 06:00 O2 Sat by Pulse Oximetry (%) 95 06/01/17 21:00 Constitutional: Yes: No Distress, Calm Neck: Yes: Supple Cardiovascular: Yes: Regular Rate and Rhythm Respiratory: Yes: Regular, CTA Bilaterally Gastrointestinal: Yes: Normal Bowel Sounds, Soft Edema: No Labs: CBC, BMP 05/31/17 07:00 05/31/17 07:00 INR, PTT INR 1.65 (0.82-1.09) H 05/30/17 14:35 - ....Imaging EKG: Report Reviewed (SR, PVC, no PAF) Problem List - Problems (1) Transient loss of consciousness Code(s): R55 - SYNCOPE AND COLLAPSE (2) COPD (chronic obstructive pulmonary disease) Code(s): J44.9 - CHRONIC OBSTRUCTIVE PULMONARY DISEASE, UNSPECIFIED Qualifiers : COPD type: unspecified COPD Qualified Code(s): J44.9 - Chronic obstructive pulmonary disease, unspecified (3) HTN (hypertension) Code(s): I10 - ESSENTIAL (PRIMARY) HYPERTENSION Qualifiers: Hypertension type: essential hypertension Qualified Code(s): I10 - Essential (primary) hypertension (4) Paroxysmal atrial fibrillation with RVR Code(s): I48.0 - PAROXYSMAL ATRIAL FIBRILLATION Assessment/Plan 1. Post-tussive syncope - suspect neurocardiogenic 2. Post laparoscopic cholecystectomy - post surgically stable 3. PAF remains in sinus rhythm [id number] score of 3 4. Hypertension 5. History of discitis and paraspinal abscess 6. COPD PLAN: 1. No events on telemetry for >48 hrs 2. Continue Lopressor 50 bid 3. Continue Eliquis 5 bid 4. Consider tilt table testing, extended monitoring including event monitor or loop recorder as outpatient, may be transferred back to [place].
--- NOTE | 2017-06-02 09:43 | PN ---
Progress Note (short form) - Note Progress Note: patient seen and examined this morning. Anxious to go back to [facility]. No recurrence of syncope while at [facility]. No acute finding on EEG lab or MRI of the brain. Document Control Assistant was going to speak to staff at [facility] regarding loop recorder or electrophysiological studies. I waited for a definitive answer so plans can be made in case patient has a recurrence of syncope. Vital Signs Temp 98.6 F 06/02/17 06:00 Pulse 82 06/02/17 06:00 Resp 20 06/02/17 06:00 BP 136/79 06/02/17 06:00 Pulse Ox 95 06/01/17 21:00 Intake & Output 06/01/17 06/01/17 06/02/17 11:59 23:59 11:59 Intake Total 10 530 490 Output Total 600 240 Balance 10 -70 250 Intake: IV 10 10 Normal Saline - 1,000 ml 10 @ 42 mls/hr IV ASDIR DOMITILA Rx#:[id number] RFA 20 05/30/2017 10 Oral 520 490 Output: Urine 600 240 Void 600 240 Other: Voiding Method Urinal Urinal Bowel Movement Yes No # Bowel Movements 1 patient is alert and aware Chest clear to auscultation. Heart regular Extremity SCDs no edema impression: Recurrent syncope. Diagnosis is still not definitively known. Recent acute osteomyelitis, discitis and epidural collection due to and MSSA sepsis Hypertension Lumbosacral disc disease. Plan: Transfer back to [facility]. Still awaiting an opinion from the physicians at [facility].
[2017-06-02] MEDS ORDERED: PT OWN MED DRAWER 7, Y5N ONE ×3 (09:52→21:06)
[2017-06-02] MEDS: ASCORBIC ACID 500 MG TABLET (FP) PO SCH (10:04)
[2017-06-02] MEDS: APIXABAN 5 MG TABLET PO SCH ×2 (10:04→21:07)
[2017-06-02] MEDS: FERROUS SO4 325 MG TABLET (FP) PO SCH ×2 (10:04→17:37)
[2017-06-02] MEDS: MAGNESIUM OXIDE 400 MG TABLET (FP) PO SCH ×2 (10:05→21:07)
[2017-06-02] MEDS: SENNOSIDES 8.6MG TABLET (FP) PO SCH ×2 (10:05→21:07)
[2017-06-02] MEDS: DULoxetine HCL 30 MG CAPSULE.DR (FP) PO SCH (10:05)
[2017-06-02] MEDS: PANTOPRAZOLE 20 MG TABLET (FP) PO SCH (10:05)
[2017-06-02] MEDS: FOLIC ACID 1 MG TABLET (FP) PO SCH (10:05)
[2017-06-02] MEDS: FLUTICASONE/SALMETEROL 100 MCG/50 MCG DISKUS IH SCH ×2 (10:05→21:06)
[2017-06-02] MEDS: METOPROLOL TARTRATE 50 MG TABLET (FP) PO SCH ×2 (10:05→21:07)
--- NOTE | 2017-06-02 10:41 | PN ---
Progress Note (short form) - Note Progress Note: Neurology HPI 77 year old male who presents from [facility] for repeated episodes of passing out. He was recently discharged after having a cholecystectomy and was at [place] for rehabilitation. He was doing well, but he says that he will begin to feel a tickle in his throat and begins to cough. He says if he drinks something it will resolve. However if he continues to cough it is noted that he passes out. He states he does not remember these episodes but per staff at [place] he becomes unresponsive for approximately 10-15 seconds and then he recovers. Neurologically stable during my evaluation and cognitively intact. EEG completed and reported normal by Dr. Meredith. CD completed and reviewed as well and did not show hemodynamically significant stenosis. MRI brain also reviewed including images and did not show acute changes. There was mention of artifact noted. Patient being considered to go back to [place] vs. loop recorder procedure at [place]. He seems to prefer return to [place], stable at this time. Active Medications Acetaminophen (Tylenol -) 650 mg PO Q4H PRN PRN Reason: PAIN Al Hydroxide/Mg Hydroxide (Mylanta Oral Suspension -) 30 ml PO Q4H PRN PRN Reason: dyspepsia/abdominal discomfort Albuterol/Ipratropium (Duoneb -) 1 amp NEB Q4H PRN PRN Reason: SHORTNESS OF BREATH Apixaban (Eliquis -) 5 mg PO BID [facility] Last Admin: 06/02/17 10:04 Dose: 5 mg Ascorbic Acid (Vitamin C -) 500 mg PO DAILY [facility] Last Admin: 06/02/17 10:04 Dose: 500 mg Bisacodyl (Dulcolax Suppository -) 10 mg RC HS [facility] Last Admin: 06/01/17 21:40 Dose: Not Given Docusate Sodium (Colace -) 100 mg PO TID [facility] Last Admin: 06/02/17 06:10 Dose: Not Given Duloxetine HCl (Cymbalta -) 30 mg PO DAILY [facility] Last Admin: 06/02/17 10:05 Dose: 30 mg Ferrous Sulfate (Feosol -) 325 mg PO BIDWM [facility] Last Admin: 06/02/17 10:04 Dose: 325 mg Folic Acid (Folic Acid -) 1 mg PO DAILY [facility] Last Admin: 06/02/17 10:05 Dose: 1 mg Guaifenesin (Robitussin Dm -) 5 ml PO Q4H PRN PRN Reason: COUGH Magnesium Oxide (Mag-Ox -) 400 mg PO BID [facility] Last Admin: 06/02/17 10:05 Dose: 400 mg Melatonin (Melatonin) 3 mg PO [facility] Last Admin: 06/01/17 21:53 Dose: 3 mg Metoprolol Tartrate (Lopressor -) 50 mg PO BID [facility] Last Admin: 06/02/17 10:05 Dose: 50 mg Montelukast Sodium (Singulair -) 10 mg PO [facility] Last Admin: 06/01/17 21:53 Dose: 10 mg Ondansetron HCl (Zofran -) 4 mg PO Q8H PRN PRN Reason: NAUSEA AND/OR VOMITING Oxycodone HCl (Roxicodone -) 5 mg PO Q4H PRN PRN Reason: MILD PAIN Pantoprazole Sodium (Protonix -) 20 mg PO DAILY [facility] Last Admin: 06/02/17 10:05 Dose: 20 mg Polyethylene Glycol (Miralax (For Daily Use) -) 17 gm PO DAILY PRN PRN Reason: CONSTIPATION Pregabalin (Lyrica -) 150 mg PO TID [facility] Last Admin: 06/02/17 06:20 Dose: 150 mg Fluticasone/Salmeterol (Advair 100mcg/50mcg -) 1 puff IH BID [facility] Last Admin: 06/02/17 10:05 Dose: 1 puff Senna (Senna -) 2 tab PO BID [facility] Last Admin: 06/02/17 10:05 Dose: 2 tab Physical Examination Vital Signs Temperature 98.6 F 06/02/17 06:00 Pulse Rate 82 06/02/17 06:00 Respiratory Rate 20 06/02/17 06:00 Blood Pressure 136/79 06/02/17 06:00 O2 Sat by Pulse Oximetry (%) 95 06/01/17 21:00 Constitutional: Yes: Well Nourished, No Distress, Calm Eyes: Yes: Conjunctiva Clear, EOM Intact, PERRL HENT: Yes: Atraumatic, Normocephalic Cardiovascular: Yes: Regular Rate and Rhythm. No: Gallop, Murmur, Rub Respiratory: Yes: Regular, CTA Bilaterally. No: Rales, Rhonchi, Wheezes Gastrointestinal: Yes: Normal Bowel Sounds, Soft. No: Distention, Tenderness Extremities: Yes: WNL Neurology: CN intact, awake, alert, conversive, strength normal, sensory intact , finger to nose normal, gait deferred CBCD WBC 7.1 K/mm3 (4.0-10.0) D 05/31/17 07:00 RBC 3.65 M/mm3 (4.00-5.60) L 05/31/17 07:00 Hgb 10.3 GM/dL (11.7-16.9) L 05/31/17 07:00 Hct 32.1 % (35.4-49) L 05/31/17 07:00 MCV 87.9 fl (80-96) 05/31/17 07:00 MCHC 32.0 g/dl (32.0-35.9) 05/31/17 07:00 RDW 15.3 % (11.9-15.9) 05/31/17 07:00 Plt Count 333 K/MM3 (134-434) 05/31/17 07:00 MPV 8.5 fl (7.5-11.1) 05/31/17 07:00 CMP Sodium 140 mmol/L (136-145) 05/31/17 07:00 Potassium 4.2 mmol/L (3.5-5.1) 05/31/17 07:00 Chloride 101 mmol/L (98-107) 05/31/17 07:00 Carbon Dioxide 28 mmol/L (21-32) 05/31/17 07:00 Anion Gap 11 (8-16) 05/31/17 07:00 BUN 9 mg/dL (7-18) 05/31/17 07:00 Creatinine 0.5 mg/dL (0.7-1.3) L 05/31/17 07:00 Creat Clearance w eGFR > 60 (>60) 05/30/17 14:35 Calcium 9.0 mg/dL (8.5-10.1) 05/31/17 07:00 Total Bilirubin 0.3 mg/dL (0.2-1.0) 05/30/17 14:35 AST 10 U/L (15-37) L D 05/30/17 14:35 ALT 10 U/L (12-78) L D 05/30/17 14:35 Alkaline Phosphatase 95 U/L (45-117) 05/30/17 14:35 Total Protein 7.5 g/dl (6.4-8.2) 05/30/17 14:35 Albumin 2.5 g/dl (3.4-5.0) L 05/30/17 14:35 Imaging - Results Chest X-ray: Report Reviewed, Image Reviewed EEG, CD reviewed Plan 77 year old male who presents from [facility] for repeated episodes of passing out. He was recently discharged after having a cholecystectomy and was at [facility] for rehabilitation. He was doing well, but he says that he will begin to feel a tickle in his throat and begins to cough. He says if he drinks something it will resolve. However if he continues to cough it is noted that he passes out. He states he does not remember these episodes but per staff at [place] he becomes unresponsive for approximately 10-15 seconds and then he recovers. Neurologically stable during my evaluation and cognitively intact. No abnormal movements noted and no significant neurologic complaints. He was wondering why he's even in the hospital and we had an extensive conversation regarding why. EEG reviewed MRI brain reviewed CD reviewed Cardiology following, considering loop recorder Continue Lopressor and Eliquis for Afib CHeck for orthostatic hypotension Monitor HTN, on Lopressor Continue gait training, physical therapy Uses walker and is in need of it Possibly transfer to [place] depending on Loop recorder plan
[2017-06-02] MEDS: BISACODYL 10 MG SUPP.RECT RC SCH (21:07)
[2017-06-02] MEDS: MELATONIN 1 MG TABLET PO SCH (21:07)
[2017-06-02] MEDS: MONTELUKAST NA 10 MG TABLET PO SCH (21:07)
[2017-06-03] MEDS: DOCUSATE SODIUM 100 MG CAPSULE (FP) PO SCH ×3 (05:50→21:12)
[2017-06-03] MEDS: PREGABALIN 75 MG CAPSULE PO SCH ×3 (06:49→21:10)
[2017-06-03] MEDS: SENNOSIDES 8.6MG TABLET (FP) PO SCH ×2 (09:41→21:10)
[2017-06-03] MEDS: PANTOPRAZOLE 20 MG TABLET (FP) PO SCH (09:41)
[2017-06-03] MEDS: FOLIC ACID 1 MG TABLET (FP) PO SCH (09:41)
[2017-06-03] MEDS: DULoxetine HCL 30 MG CAPSULE.DR (FP) PO SCH (09:41)
[2017-06-03] MEDS: FERROUS SO4 325 MG TABLET (FP) PO SCH ×2 (09:41→17:35)
[2017-06-03] MEDS: MAGNESIUM OXIDE 400 MG TABLET (FP) PO SCH ×2 (09:41→21:10)
[2017-06-03] MEDS: APIXABAN 5 MG TABLET PO SCH ×2 (09:42→21:10)
[2017-06-03] MEDS: METOPROLOL TARTRATE 50 MG TABLET (FP) PO SCH ×2 (09:42→21:12)
[2017-06-03] MEDS: FLUTICASONE/SALMETEROL 100 MCG/50 MCG DISKUS IH SCH ×2 (09:42→21:12)
[2017-06-03] MEDS: ASCORBIC ACID 500 MG TABLET (FP) PO SCH (09:42)
--- NOTE | 2017-06-03 10:19 | PN ---
Progress Note (short form) - Note Progress Note: Neurology HPI 77 year old male who presents from [facility] for repeated episodes of passing out. He was recently discharged after having a cholecystectomy and was at [place] for rehabilitation. He was doing well, but he says that he will begin to feel a tickle in his throat and begins to cough. He says if he drinks something it will resolve. However if he continues to cough it is noted that he passes out. He states he does not remember these episodes but per staff at [place] he becomes unresponsive for approximately 10-15 seconds and then he recovers. Neurologically stable during my evaluation and cognitively intact. EEG completed and reported normal by Dr. Meredith. CD completed and reviewed as well and did not show hemodynamically significant stenosis. MRI brain also reviewed including images and did not show acute changes. There was mention of artifact noted. Patient being considered to go back to [place] vs. loop recorder procedure at [place]. He seems to prefer return to [place], stable at this time. Will defer to cardiology and PCP regarding disposition. Active Medications Acetaminophen (Tylenol -) 650 mg PO Q4H PRN PRN Reason: PAIN Al Hydroxide/Mg Hydroxide (Mylanta Oral Suspension -) 30 ml PO Q4H PRN PRN Reason: dyspepsia/abdominal discomfort Albuterol/Ipratropium (Duoneb -) 1 amp NEB Q4H PRN PRN Reason: SHORTNESS OF BREATH Apixaban (Eliquis -) 5 mg PO BID [facility] Last Admin: 06/03/17 09:42 Dose: 5 mg Ascorbic Acid (Vitamin C -) 500 mg PO DAILY [facility] Last Admin: 06/03/17 09:42 Dose: 500 mg Bisacodyl (Dulcolax Suppository -) 10 mg RC HS [facility] Last Admin: 06/02/17 21:07 Dose: Not Given Docusate Sodium (Colace -) 100 mg PO TID [facility] Last Admin: 06/03/17 05:50 Dose: Not Given Duloxetine HCl (Cymbalta -) 30 mg PO DAILY [facility] Last Admin: 06/03/17 09:41 Dose: 30 mg Ferrous Sulfate (Feosol -) 325 mg PO BIDWM [facility] Last Admin: 06/03/17 09:41 Dose: 325 mg Folic Acid (Folic Acid -) 1 mg PO DAILY [facility] Last Admin: 06/03/17 09:41 Dose: 1 mg Guaifenesin (Robitussin Dm -) 5 ml PO Q4H PRN PRN Reason: COUGH Magnesium Oxide (Mag-Ox -) 400 mg PO BID [facility] Last Admin: 06/03/17 09:41 Dose: 400 mg Melatonin (Melatonin) 3 mg PO HS [facility] Last Admin: 06/02/17 21:07 Dose: 3 mg Metoprolol Tartrate (Lopressor -) 50 mg PO BID [facility] Last Admin: 06/03/17 09:42 Dose: 50 mg Montelukast Sodium (Singulair -) 10 mg PO HS [facility] Last Admin: 06/02/17 21:07 Dose: 10 mg Ondansetron HCl (Zofran -) 4 mg PO Q8H PRN PRN Reason: NAUSEA AND/OR VOMITING Oxycodone HCl (Roxicodone -) 5 mg PO Q4H PRN PRN Reason: MILD PAIN Pantoprazole Sodium (Protonix -) 20 mg PO DAILY [facility] Last Admin: 06/03/17 09:41 Dose: 20 mg Polyethylene Glycol (Miralax (For Daily Use) -) 17 gm PO DAILY PRN PRN Reason: CONSTIPATION Pregabalin (Lyrica -) 150 mg PO TID [facility] Last Admin: 06/03/17 06:49 Dose: 150 mg Fluticasone/Salmeterol (Advair 100mcg/50mcg -) 1 puff IH BID [facility] Last Admin: 06/03/17 09:42 Dose: 1 puff Senna (Senna -) 2 tab PO BID [facility] Last Admin: 06/03/17 09:41 Dose: 2 tab Physical Examination Vital Signs Temperature 98.1 F 06/03/17 06:00 Pulse Rate 90 06/03/17 06:00 Respiratory Rate 18 06/03/17 06:00 Blood Pressure 147/79 06/03/17 06:00 O2 Sat by Pulse Oximetry (%) 95 06/02/17 21:00 Constitutional: Yes: Well Nourished, No Distress, Calm Eyes: Yes: Conjunctiva Clear, EOM Intact, PERRL HENT: Yes: Atraumatic, Normocephalic Cardiovascular: Yes: Regular Rate and Rhythm. No: Gallop, Murmur, Rub Respiratory: Yes: Regular, CTA Bilaterally. No: Rales, Rhonchi, Wheezes Gastrointestinal: Yes: Normal Bowel Sounds, Soft. No: Distention, Tenderness Extremities: Yes: WNL Neurology: CN intact, awake, alert, conversive, strength normal, sensory intact , finger to nose normal, gait deferred CBCD WBC 7.1 K/mm3 (4.0-10.0) D 05/31/17 07:00 RBC 3.65 M/mm3 (4.00-5.60) L 05/31/17 07:00 Hgb 10.3 GM/dL (11.7-16.9) L 05/31/17 07:00 Hct 32.1 % (35.4-49) L 05/31/17 07:00 MCV 87.9 fl (80-96) 05/31/17 07:00 MCHC 32.0 g/dl (32.0-35.9) 05/31/17 07:00 RDW 15.3 % (11.9-15.9) 05/31/17 07:00 Plt Count 333 K/MM3 (134-434) 05/31/17 07:00 MPV 8.5 fl (7.5-11.1) 05/31/17 07:00 CMP Sodium 140 mmol/L (136-145) 05/31/17 07:00 Potassium 4.2 mmol/L (3.5-5.1) 05/31/17 07:00 Chloride 101 mmol/L (98-107) 05/31/17 07:00 Carbon Dioxide 28 mmol/L (21-32) 05/31/17 07:00 Anion Gap 11 (8-16) 05/31/17 07:00 BUN 9 mg/dL (7-18) 05/31/17 07:00 Creatinine 0.5 mg/dL (0.7-1.3) L 05/31/17 07:00 Creat Clearance w eGFR > 60 (>60) 05/30/17 14:35 Calcium 9.0 mg/dL (8.5-10.1) 05/31/17 07:00 Total Bilirubin 0.3 mg/dL (0.2-1.0) 05/30/17 14:35 AST 10 U/L (15-37) L D 05/30/17 14:35 ALT 10 U/L (12-78) L D 05/30/17 14:35 Alkaline Phosphatase 95 U/L (45-117) 05/30/17 14:35 Total Protein 7.5 g/dl (6.4-8.2) 05/30/17 14:35 Albumin 2.5 g/dl (3.4-5.0) L 05/30/17 14:35 Imaging - Results Chest X-ray: Report Reviewed, Image Reviewed EEG, CD reviewed Plan 77 year old male who presents from [facility] for repeated episodes of passing out. He was recently discharged after having a cholecystectomy and was at [place] for rehabilitation. He was doing well, but he says that he will begin to feel a tickle in his throat and begins to cough. He says if he drinks something it will resolve. However if he continues to cough it is noted that he passes out. He states he does not remember these episodes but per staff at [place] he becomes unresponsive for approximately 10-15 seconds and then he recovers. Neurologically stable during my evaluation and cognitively intact. No abnormal movements noted and no significant neurologic complaints. He was wondering why he's even in the hospital and we had an extensive conversation regarding why. EEG reviewed MRI brain reviewed CD reviewed Cardiology following, considering loop recorder Continue Lopressor and Eliquis for Afib Monitor HTN, on Lopressor Continue gait training, physical therapy Uses walker and is in need of it Possibly transfer to [place] depending on Loop recorder plan Will defer to cards and primary care physician regarding dispo
--- NOTE | 2017-06-03 11:52 | PN ---
Progress Note, Physician History of Present Illness: No further near or true syncope, denies palpitations. No events on telemetry. - Current Medication List Current Medications: Active Medications Acetaminophen (Tylenol -) 650 mg PO Q4H PRN PRN Reason: PAIN Al Hydroxide/Mg Hydroxide (Mylanta Oral Suspension -) 30 ml PO Q4H PRN PRN Reason: dyspepsia/abdominal discomfort Albuterol/Ipratropium (Duoneb -) 1 amp NEB Q4H PRN PRN Reason: SHORTNESS OF BREATH Apixaban (Eliquis -) 5 mg PO BID [facility] Last Admin: 06/03/17 09:42 Dose: 5 mg Ascorbic Acid (Vitamin C -) 500 mg PO DAILY [facility] Last Admin: 06/03/17 09:42 Dose: 500 mg Bisacodyl (Dulcolax Suppository -) [address] [facility] Last Admin: 06/02/17 21:07 Dose: Not Given Docusate Sodium (Colace -) 100 mg PO TID [facility] Last Admin: 06/03/17 05:50 Dose: Not Given Duloxetine HCl (Cymbalta -) 30 mg PO DAILY [facility] Last Admin: 06/03/17 09:41 Dose: 30 mg Ferrous Sulfate (Feosol -) 325 mg PO BIDWM [facility] Last Admin: 06/03/17 09:41 Dose: 325 mg Folic Acid (Folic Acid -) 1 mg PO DAILY [facility] Last Admin: 06/03/17 09:41 Dose: 1 mg Guaifenesin (Robitussin Dm -) 5 ml PO Q4H PRN PRN Reason: COUGH Magnesium Oxide (Mag-Ox -) 400 mg PO BID [facility] Last Admin: 06/03/17 09:41 Dose: 400 mg Melatonin (Melatonin) [address] [facility] Last Admin: 06/02/17 21:07 Dose: 3 mg Metoprolol Tartrate (Lopressor -) 50 mg PO BID [facility] Last Admin: 06/03/17 09:42 Dose: 50 mg Montelukast Sodium (Singulair -) [address] [facility] Last Admin: 06/02/17 21:07 Dose: 10 mg Ondansetron HCl (Zofran -) 4 mg PO Q8H PRN PRN Reason: NAUSEA AND/OR VOMITING Oxycodone HCl (Roxicodone -) 5 mg PO Q4H PRN PRN Reason: MILD PAIN Pantoprazole Sodium (Protonix -) 20 mg PO DAILY [facility] Last Admin: 06/03/17 09:41 Dose: 20 mg Polyethylene Glycol (Miralax (For Daily Use) -) 17 gm PO DAILY PRN PRN Reason: CONSTIPATION Pregabalin (Lyrica -) 150 mg PO TID [facility] Last Admin: 06/03/17 06:49 Dose: 150 mg Fluticasone/Salmeterol (Advair 100mcg/50mcg -) 1 puff IH BID [facility] Last Admin: 06/03/17 09:42 Dose: 1 puff Senna (Senna -) 2 tab PO BID [facility] Last Admin: 06/03/17 09:41 Dose: 2 tab - Objective Vital Signs: Vital Signs Temperature 98.1 F 06/03/17 06:00 Pulse Rate 69 06/03/17 11:03 Respiratory Rate 18 06/03/17 06:00 Blood Pressure 147/79 06/03/17 06:00 O2 Sat by Pulse Oximetry (%) 95 06/03/17 11:03 Constitutional: Yes: No Distress, Calm Neck: Yes: Supple Cardiovascular: Yes: Regular Rate and Rhythm Respiratory: Yes: Regular, CTA Bilaterally Gastrointestinal: Yes: Normal Bowel Sounds, Soft Edema: No Labs: CBC, BMP 05/31/17 07:00 05/31/17 07:00 INR, PTT INR 1.65 (0.82-1.09) H 05/30/17 14:35 - ....Imaging EKG: Report Reviewed (Tele: SR no pauses) Problem List - Problems (1) Transient loss of consciousness Code(s): R55 - SYNCOPE AND COLLAPSE (2) COPD (chronic obstructive pulmonary disease) Code(s): J44.9 - CHRONIC OBSTRUCTIVE PULMONARY DISEASE, UNSPECIFIED Qualifiers : COPD type: unspecified COPD Qualified Code(s): J44.9 - Chronic obstructive pulmonary disease, unspecified (3) HTN (hypertension) Code(s): I10 - ESSENTIAL (PRIMARY) HYPERTENSION Qualifiers: Hypertension type: essential hypertension Qualified Code(s): I10 - Essential (primary) hypertension (4) Paroxysmal atrial fibrillation with RVR Code(s): I48.0 - PAROXYSMAL ATRIAL FIBRILLATION Assessment/Plan 1. Post-tussive syncope - suspect neurocardiogenic 2. Post laparoscopic cholecystectomy - post surgically stable 3. PAF remains in sinus rhythm [id number] score of 3 4. Hypertension 5. History of discitis and paraspinal abscess 6. COPD PLAN: 1. No events on telemetry for >72 hrs 2. Continue Lopressor 50 bid 3. Continue Eliquis 5 bid 4. Discussed with cardiac EP, plan for extended external monitoring as outpatient, may be transferred back to [place], provided him contact for outpatient EP f/u upon d/c.
--- NOTE | 2017-06-03 19:35 | PN ---
Progress Note (short form) - Note Progress Note: patient seen and examined this morning. No recurrent episode of syncope while in the hospital. I called the [place] physician to give her an update and requested transfer back. I asked her if she could provide a two-week external heart monitor. I do not think back can be done at [facility] so it will have to be done as an outpatient. Good appetite. No cough or shortness of breath Ambulates with daughter and physical therapy also. on exam: Vital Signs Temp 97.4 F L 06/03/17 18:30 Pulse 86 06/03/17 18:30 Resp 18 06/03/17 18:30 BP 110/77 06/03/17 18:30 Pulse Ox 95 06/03/17 11:03 Intake & Output 06/02/17 06/03/17 06/03/17 23:59 11:59 23:59 Intake Total 780 120 300 Output Total 480 200 Balance 780 -360 100 Intake: IV 10 RFA 20 05/30/2017 10 Oral 770 120 300 Output: Urine 480 200 Void 480 200 Other: Voiding Method Urinal Urinal Urinal # Unmeasured Voids Void 2 Bowel Movement No No # Bowel Movements 1 Patient is alert Slightly pale. Chest clear except for a few rales at the bases. Heart regular. Extremities no pedal edema. SCDs in place. Abdominal soft with no focal tenderness. . Impression: Recurrent syncope Recent lumbosacral spine osteomyelitis and discitis. History of epidural collection Status post 8 weeks of IV antibiotics Hypertension on medicine. Atrial fibrillation on NOAC Lumbosacral disc disease. Plan: Will be accepted back for [place] transfer in a.m.
[2017-06-03] MEDS ORDERED: PT OWN MED DRAWER 7, Y5N ONE (21:07)
[2017-06-03] MEDS: MELATONIN 1 MG TABLET PO SCH (21:09)
[2017-06-03] MEDS: MONTELUKAST NA 10 MG TABLET PO SCH (21:12)
[2017-06-03] MEDS: BISACODYL 10 MG SUPP.RECT RC SCH (21:12)
[2017-06-04] MEDS: DOCUSATE SODIUM 100 MG CAPSULE (FP) PO SCH (06:28)
[2017-06-04] MEDS: PREGABALIN 75 MG CAPSULE PO SCH (06:34)
[2017-06-04] MEDS ORDERED: PT OWN MED DRAWER 7, Y5N ONE (08:43)
[2017-06-04] MEDS: FERROUS SO4 325 MG TABLET (FP) PO SCH (09:00)
[2017-06-04] MEDS: METOPROLOL TARTRATE 50 MG TABLET (FP) PO SCH (09:30)
[2017-06-04] MEDS: ASCORBIC ACID 500 MG TABLET (FP) PO SCH (09:31)
[2017-06-04] MEDS: SENNOSIDES 8.6MG TABLET (FP) PO SCH (09:31)
[2017-06-04] MEDS: FLUTICASONE/SALMETEROL 100 MCG/50 MCG DISKUS IH SCH (09:31)
[2017-06-04] MEDS: FOLIC ACID 1 MG TABLET (FP) PO SCH (09:31)
[2017-06-04] MEDS: DULoxetine HCL 30 MG CAPSULE.DR (FP) PO SCH (09:31)
[2017-06-04] MEDS: MAGNESIUM OXIDE 400 MG TABLET (FP) PO SCH (09:31)
[2017-06-04] MEDS: APIXABAN 5 MG TABLET PO SCH (09:31)
[2017-06-04] MEDS: PANTOPRAZOLE 20 MG TABLET (FP) PO SCH (09:31)
[2017-06-04 10:27] VITALS: BP 135/92; PULSE 99; TEMP 97.7
--- NOTE | 2017-06-04 12:18 | DS ---
Physical Examination Vital Signs: Vital Signs Temperature 97.7 F 06/04/17 10:00 Pulse Rate 99 H 06/04/17 10:00 Respiratory Rate 20 06/04/17 10:00 Blood Pressure 135/92 06/04/17 10:00 O2 Sat by Pulse Oximetry (%) 94 L 06/04/17 09:00 Constitutional: Yes: Calm Cardiovascular: Yes: Regular Rate and Rhythm Respiratory: Yes: Regular Edema: No (SCD's in place) Labs: CBC, BMP 05/31/17 07:00 05/31/17 07:00 Discharge Summary Reason For Visit: TRANSCIENT LOSS OF CONSCIOUSNESS recurrent syncope acute Hypertension acute LS disc diease acute Paroxysmal A. Fibrillation Osteomyelitis Discitis LS spine Acute and chronic pain Procedures: Principal: Patient had syncope 3 days [facility] at [facility] and was a safety issue; Cardiac monitoring required Other Procedures: Cardiology and Neuro MD olson and MRI Brain and EEG Hospital Course: Slowly improved but will go back to [facility] and still requires 14 day external cardiac monitoring as outpatient Condition: Stable - Instructions Diet, Activity, Other Instructions: Regular diet as tolerated. Resume Rehab at [place]. Referrals: Josh Galeano MD [Staff Physician] - Disposition: TRANSFER ACUTE CARE/OTHER HOSP - Home Medications Comprehensive Discharge Medication List: Ambulatory Orders Acetaminophen [Tylenol] 650 mg PO Q4H PRN 05/16/17 Ascorbate Calcium [Vitamin C] 500 mg PO DAILY 05/16/17 Bisacodyl [Dulcolax] 10 mg RC HS 05/16/17 Diclofenac Sodium [Voltaren] 100 gm TP BID 05/16/17 Docusate Sodium [Colace -] 100 mg PO TID 05/16/17 Duloxetine HCl [Cymbalta -] 30 mg PO DAILY 05/16/17 Folic Acid 1 mg PO DAILY 05/16/17 Guaifenesin Dm [Robitussin Dm -] 5 ml PO Q4H PRN 05/16/17 Ipratropium/Albuterol Sulfate [Iprat-Albut 0.5-3(2.5) mg/3 ml] 3 ml IH Q4H PRN 05/16/17 Lactobacillus Acidophilus [Bacid -] 1 each PO DAILY 05/16/17 Lidocaine 2% Jelly [Xylocaine 2% Jelly] 0 applic TP BID 05/16/17 Mag Hydrox/Al Hydrox/Simeth [Mylanta Oral Suspension -] 30 ml PO Q4H PRN Magnesium Oxide [Mag-Ox -] 400 ml PO BID 05/16/17 Melatonin 3 mg PO HS 05/16/17 Metoprolol Tartrate [Lopressor] 50 mg PO BID 05/16/17 Montelukast Na [Singulair -] 10 mg PO HS 05/16/17 Nystatin Cream [Mycostatin Cream -] 1 applic TP BID 05/16/17 Omeprazole 20 mg PO DAILY 05/16/17 Polyethylene Glycol 3350 [Miralax 119 gm Btl -] 17 gm PO DAILY PRN 05/16/17 Pregabalin [Lyrica -] 150 mg PO Q8H 05/16/17 Salmeterol/Fluticasone [Advair 100Mcg/50Mcg -] 1 inh PO BID 05/16/17 Sennosides [Senna] 2 tab PO BID 05/16/17 Apixaban [Eliquis -] 5 mg PO BID tablet 05/20/17 Ferrous Sulfate [Feosol] 325 mg PO BIDWM tablet 05/20/17 Oxycodone HCl [Roxicodone -] 5 mg PO Q4H PRN #60 tablet MDD 4 05/20/17 Levetiracetam [Keppra -] 500 mg PO BID 05/30/17
== END 2017-06-04 11:38 | DRG 312 ==
LOC: JER 13:17 → JERBED 17:29 → J4W 19:30 → J4S 06-01 17:55
PROVIDERS: ADMIT Internal Medicine; ATTEND Internal Medicine
DX: R55 Syncope and collapse (principal); I50.32 Chronic diastolic (congestive) heart failure; J98.11 Atelectasis; I48.0 Paroxysmal atrial fibrillation; J44.9 Chronic obstructive pulmonary disease, unspecified; I71.2 Thoracic aortic aneurysm, without rupture; I11.0 Hypertensive heart disease with heart failure; D64.9 Anemia, unspecified; M51.87 Other intervertebral disc disorders, lumbosacral region
CPT/HCPCS: 36415; 70553-TC; 71010-TC; 80048; 80053; 81003; 83525; 83527; 83605; 83735; 84100; 84484; 85025; 85610; 85730; 87040; 87086; 93005; 93010; 93880-TC; 95816; 97116-GP; 97161-GP; 99285-25

== ENCOUNTER 2017-07-21 11:07 | Inpatient (IN) | payer OTHER, BC ==
[2017-07-21 11:15] VITALS: BMI 24.3
[2017-07-21] MEDS ORDERED: FUROSEMIDE 40 MG/4 ML INJECTABLE VIAL IVPUSH ONE (12:33)
--- NOTE | 2017-07-21 12:44 | PDOC ---
History of Present Illness <Theodore Sanz - Last Filed: 07/21/17 14:13> - General History Source: Patient, Family (daughter) - History of Present Illness Initial Comments: 07/21/17 12:38 Patient is a 77 yo M with PMH of HTN, Asthma, osteomyelitis (few months ago), presented to the ED with and daughter for shortness of breath and lower extremity swelling that began on Tuesday and has gotten worse. He woke up at 3am this morning with severe SOB and called his doctor who told him to go to the hospital. Lately he has had dyspnea on exertion with cough which has become worse. He said he was never diagnosed with CHF but had fluid overload during one of his hospital admissions. 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 He denies chest pain, dizziness, headache, abdominal pain, and urinary symptoms. 07/21/17 12:50 Timing/Duration: reports: getting worse Possible Cause: Yes: no prior episodes Modifying Factors: improves with: activity, oxygen Associated Symptoms: reports: cough. denies: chest pain/soreness, dizziness, fever/chills, headache <Geoff Lee - Last Filed: 07/21/17 14:59> - General Chief Complaint: Shortness of Breath Stated Complaint: SOB (PCP SENT) Time Seen by Provider: 07/21/17 12:01 Past History <Theodore Sanz - Last Filed: 07/21/17 14:13> - Past Medical History Anemia: Yes Asthma: Yes Cardiac Disorders: Yes (p. AFIB, THORACIC AORTIC ANEURYSM) COPD: Yes HTN: Yes - Surgical History Abdominal Surgery: Yes (HERNIA) Cholecystectomy: Yes - Suicide/Smoking/Psychosocial Hx Smoking History: Never smoked Have you smoked in the past 12 months: No Hx Alcohol Use: No Drug/Substance Use Hx: No Substance Use Type: None Hx Substance Use Treatment: No <Geoff Lee - Last Filed: 07/21/17 14:59> - Past Medical History Allergies/Adverse Reactions: Allergies Allergy/AdvReac Type Severity Reaction Status Date / Time aloe Allergy Severe Rash Verified 07/21/17 11:16 aloe vera Allergy Severe Rash Verified 07/21/17 11:16 Home Medications: Ambulatory Orders Acetaminophen [Tylenol] 650 mg PO Q4H PRN 05/16/17 Ascorbate Calcium [Vitamin C] 500 mg PO DAILY 08/28/17 Bisacodyl [Dulcolax] 10 mg RC HS 05/16/17 Diclofenac Sodium [Voltaren] 100 gm TP BID 05/16/17 Docusate Sodium [Colace -] 100 mg PO TID 05/16/17 Duloxetine HCl [Cymbalta -] 30 mg PO DAILY 05/16/17 Folic Acid 1 mg PO DAILY 05/16/17 Guaifenesin Dm [Robitussin Dm -] 5 ml PO Q4H PRN 05/16/17 Ipratropium/Albuterol Sulfate [Iprat-Albut 0.5-3(2.5) mg/3 ml] 3 ml IH Q4H PRN 05/16/17 Lactobacillus Acidophilus [Bacid -] 1 each PO DAILY 05/16/17 Lidocaine 2% Jelly [Xylocaine 2% Jelly] 0 applic TP BID 05/16/17 Mag Hydrox/Al Hydrox/Simeth [Mylanta Oral Suspension -] 30 ml PO Q4H PRN Magnesium Oxide [Mag-Ox -] 400 ml PO BID 05/16/17 Melatonin 3 mg PO HS 05/16/17 Metoprolol Tartrate [Lopressor] 25 mg PO BID 05/16/17 Montelukast Na [Singulair -] 10 mg PO HS 05/16/17 Nystatin Cream [Mycostatin Cream -] 1 applic TP BID 05/16/17 Omeprazole 20 mg PO DAILY 05/16/17 Polyethylene Glycol 3350 [Miralax 119 gm Btl -] 17 gm PO DAILY PRN 05/16/17 Pregabalin [Lyrica -] 150 mg PO Q8H 05/16/17 Salmeterol/Fluticasone [Advair 100Mcg/50Mcg -] 1 inh PO BID 05/16/17 Sennosides [Senna] 2 tab PO BID 05/16/17 Apixaban [Eliquis -] 5 mg PO BID tablet 05/20/17 Ferrous Sulfate [Feosol] 325 mg PO BIDWM tablet 05/20/17 Oxycodone HCl [Roxicodone -] 5 mg PO Q4H PRN #60 tablet MDD 4 05/20/17 Levetiracetam [Keppra -] 500 mg PO BID 05/30/17 Review of Systems - Review of Systems Constitutional: No: Chills, Fever Respiratory: Yes: Cough, Shortness of Breath, SOB with Exertion Cardiac (ROS): Yes: Edema. No: Chest Pain ABD/GI: No: Diarrhea, Nausea, Vomiting : No: Burning, Dysuria, Frequency Neurological: No: Headache, Dizziness <Geoff Lee - Last Filed: 07/21/17 14:59> *Physical Exam - Vital Signs Last Vital Signs Temp Pulse Resp BP Pulse Ox 97.6 F 94 H 26 H 162/113 94 L 07/21/17 11:11 07/21/17 13:02 07/21/17 13:02 07/21/17 13:02 07/21/17 13:02 <Theodore Sanz - Last Filed: 07/21/17 14:13> - Vital Signs Last Vital Signs Temp Pulse Resp BP Pulse Ox 97.6 F 98 H 20 167/114 94 L 07/21/17 11:11 07/21/17 12:08 07/21/17 11:11 07/21/17 11:11 07/21/17 12:08 - Physical Exam Comments: 07/21/17 12:51 General: Tachypneic, SOB HEENT: conjunctiva clear, anicteric Neck: Did not appreciate JVD Heart: Regular rate, rhythm, No murmurs Lungs: bibasilar crackles Abd: Nt, ND, +BS, no hepatmegaly Ext: B/L pitting edema, pedal edema 07/21/17 13:39 <Geoff Lee - Last Filed: 07/21/17 14:59> ED Treatment Course - LABORATORY CBC & Chemistry Diagram: 07/21/17 12:50 07/21/17 12:50 - ADDITIONAL ORDERS Additional order review: Laboratory Results 07/21/17 07/21/17 07/21/17 13:08 12:50 12:50 Sodium 139 Potassium 4.6 Chloride 101 Carbon Dioxide 31 Anion Gap 7 L BUN 15 D Creatinine 0.8 D Creat Clearance w eGFR > 60 Random Glucose 94 D Lactic Acid 2.4 H* Calcium 8.9 Total Bilirubin 0.7 D AST 13 L D ALT 13 D Alkaline Phosphatase 133 H D Creatine Kinase 143 Troponin I 0.04 D B-Natriuretic Peptide 7687.61 H Total Protein 7.8 Albumin 3.4 D 07/21/17 12:50 RBC 4.24 MCV 91.1 MCHC 31.9 L RDW 19.8 H D MPV 9.1 - Medications Given in the ED: ED Medications Discontinued Medications Generic Name Dose Route Start Last Admin Trade Name Nirmal PRN Reason Stop Dose Admin Furosemide 40 mg 07/21/17 12:33 07/21/17 12:54 Lasix Injection - IVPUSH 07/21/17 12:34 40 mg ONCE ONE Administration Nitroglycerin 0.4 mg 07/21/17 13:06 07/21/17 13:09 Nitrostat - SL 07/21/17 13:07 0.4 mg ONCE ONE Administration <Theodore Sanz - Last Filed: 07/21/17 14:13> - LABORATORY CBC & Chemistry Diagram: 07/21/17 12:50 07/21/17 12:50 <Geoff Lee - Last Filed: 07/21/17 14:59> Medical Decision Making - Medical Decision Making 07/21/17 12:55 #SOB likely secondary to Acute CHF exacerbation -Trops -CXR: Bibasal infiltrates, right more than left. And small bilateral pleural effusion. Also suggestive of Pulmonary venous congestion. -CBC, CMP, Lactic Acid -EKG -IV Lasix 40mg 07/21/17 14:58 BNP: 7687 Decision to admit tele-obs. Dr. Morrow notified. <Geoff Lee - Last Filed: 07/21/17 14:59> *DC/Admit/Observation/Transfer - Discharge Dispostion Admit: Yes <Theodore Sanz - Last Filed: 07/21/17 14:13> <Geoff Lee - Last Filed: 07/21/17 14:59> Diagnosis at time of Disposition: CHF (congestive heart failure) Qualifiers: Congestive heart failure type: unspecified congestive heart failure type Congestive heart failure chronicity: acute Qualified Code(s): I50.9 - Heart failure, unspecified; I50.9 - Heart failure, unspecified; I50.9 - Heart failure , unspecified; I50.9 - Heart failure, unspecified
[2017-07-21] MEDS ORDERED: FUROSEMIDE 40 MG/4 ML INJECTABLE VIAL ONE (12:47)
[2017-07-21] MEDS ORDERED: NITROGLYCERIN SUBLINGUAL 1/150 0.4 MG TAB SL ONE (13:06)
[2017-07-21 13:10] LABS: MCHC 31.9 g/dl (32.0-35.9); MEAN CELL VOLUME 91.1 fl (80-96); MEAN PLT VOLUME 9.1 fl (7.5-11.1); PLATELET COUNT 234 K/MM3 (134-434); RDW 19.8 % (11.9-15.9); WHITE BLOOD COUNT 6.9 K/mm3 (4.0-10.0)
[2017-07-21 13:19] LABS: ALBUMIN 3.4 g/dl (3.4-5.0); ALK PHOS 133 U/L (45-117); ANION GAP 7 (8-16); BILIRUBIN,TOTAL 0.7 mg/dL (0.2-1.0); CALCIUM 8.9 mg/dL (8.5-10.1); CO2 31 mmol/L (21-32); CREATININE 0.8 mg/dL (0.7-1.3); GLUCOSE,RANDOM 94 mg/dL (74-106); SGOT/AST 13 U/L (15-37); TOT PROT 7.8 g/dl (6.4-8.2)
[2017-07-21 13:25] LABS: SGPT/ALT 13 U/L (12-78)
--- NOTE | 2017-07-21 13:40 | PDOC ---
Attending Attestation - Resident Resident Name: BlazeallaGilbertlloyd - ED Attending Attestation I have performed the following: I have examined & evaluated the patient, The case was reviewed & discussed with the resident, I agree w/resident's findings & plan, Exceptions are as noted - HPI HPI: 07/21/17 13:40 77 M with h/o HTN, pAfib, COPD presenting to ER with SOB. Pt states it started a few days ago but acutely worsened today. He reports severe limitation in his exercise tolerance, only able to walk a few steps before becoming short of breath. Denies CP. Endorses BLE swelling. No F/C. - Physicial Exam PE: 07/21/17 13:41 "GENERAL: Awake, alert, and fully oriented, in no acute distress HEAD: No signs of trauma EYES: PERRLA, EOMI, sclera anicteric, conjunctiva clear ENT: Auricles normal inspection, hearing grossly normal, nares patent, oropharynx clear without exudates. Moist mucosa NECK: Nontender, no stepoffs, Normal ROM, supple, no lymphadenopathy, JVD, or masses LUNGS: bibasilar rales, no wheezes HEART: Regular rate and rhythm, normal S1 and S2, no murmurs, rubs or gallops ABDOMEN: Soft, nontender, normoactive bowel sounds. No guarding, no rebound. No masses EXTREMITIES: +1 PE BLE NEUROLOGICAL: Cranial nerves II through XII intact. 5/5 strength and sensation in all extremities, Normal speech, normal gait SKIN: Warm, Dry, normal turgor, no rashes or lesions noted. " - Medical Decision Making 07/21/17 13:41 77 M with SOB. Found to be hypoxic in ER, with pedal edema and bibasilar rales, consistent with new onset CHF. - Labs, BNP, trop - CXR - Lasix - Admit 07/21/17 16:56 CXR notable for pulm edema. BNP elevated. Pt given lasix 40mg IV with good UOP. Will admit for further diuresis and work up of new CHF. Case discussed in detail with admitting physician including history, physical exam and ancillary studies. Admitting physician has assumed care for the patient and will follow all pending diagnostics and complete the evaluation and treatment. Heart Score/ECG Review - ECG Impressions Comment:: 07/21/17 16:55 NSR, no KELSEY/STDs, no TWIs, Q waves anteriorly, intervals wnl
[2017-07-21 14:01] LABS: INR 1.58 (0.82-1.09); PROTHROMBIN TIME (PATIENT) 17.9 SEC (9.98-11.88)
[2017-07-21] MEDS ORDERED: POLYETHYLENE GLYCOL 3350 119 GM BTL PO PRN (15:25)
[2017-07-21] MEDS ORDERED: ALBUTEROL SO4 2.5/IPRATROPIUM 0.5 INH SOL 3 ML VIAL.NEB. NEB PRN (15:25)
[2017-07-21] MEDS ORDERED: ACETAMINOPHEN 325 MG TABLET (FP) PO PRN (15:25)
[2017-07-21] MEDS ORDERED: oxyCODONE HCL 5 MG TABLET PO PRN (15:25)
[2017-07-21] MEDS ORDERED: PATIENT'S OWN MEDICATION (NON-FORMULARY) (Pregabalin [Lyrica -] 150 MG) PO SCH (15:30)
--- NOTE | 2017-07-21 15:30 | HP ---
Admitting History and Physical - Primary Care Physician PCP: Josh Galeano - Admission Chief Complaint: I'm short of breath History of Present Illness: Mr Santacruz is a very pleasant 77 year old male who comes in from the office for shortness of breath. He has been doing well since his discharge from SNF, he has been able to work and get around without difficulty. However earlier this week he was working and felt he really pushed himself. He began to become short of breath with minimal exertion. He also was short of breath with lying flat. He had a minimal non-productive cough. He has some swelling in his legs but attributed that to an old surgery. Because of this shortness of breath he presented for chest x-ray and EKG and went to the office. In the office he was saturating in the 80% on room air. Because of this he was sent for admission. Aside from this he says he is doing well. He denies fevers, chills, lightheadedness, dizziness, chest pain, abdominal pain, nausea, vomiting, diarrhea, constipation, or difficulty urinating. I am seeing him s/p lasix and he is urinating and saying his breathing feels much improved. History Source: Patient Limitations to Obtaining History: No Limitations - Past Medical History Cardiovascular: Yes: AFIB, HTN Pulmonary: Yes: COPD Gastrointestinal: Yes: Other (history of choledocholithiasis s/p ERCP with Dr. 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 [employer] History of Recent Travel: No Home Medications - Allergies Allergies/Adverse Reactions: Allergies Allergy/AdvReac Type Severity Reaction Status Date / Time aloe Allergy Severe Rash Verified 07/21/17 11:16 aloe vera Allergy Severe Rash Verified 07/21/17 11:16 - Home Medications Home Medications: Ambulatory Orders Acetaminophen [Tylenol] 650 mg PO Q4H PRN 05/16/17 Ascorbate Calcium [Vitamin C] 500 mg PO DAILY 05/16/17 Bisacodyl [Dulcolax] 10 mg RC HS 05/16/17 Diclofenac Sodium [Voltaren] 100 gm TP BID 05/16/17 Docusate Sodium [Colace -] 100 mg PO TID 05/16/17 Duloxetine HCl [Cymbalta -] 30 mg PO DAILY 05/16/17 Folic Acid 1 mg PO DAILY 05/16/17 Guaifenesin Dm [Robitussin Dm -] 5 ml PO Q4H PRN 05/16/17 Ipratropium/Albuterol Sulfate [Iprat-Albut 0.5-3(2.5) mg/3 ml] 3 ml IH Q4H PRN 05/16/17 Lactobacillus Acidophilus [Bacid -] 1 each PO DAILY 05/16/17 Lidocaine 2% Jelly [Xylocaine 2% Jelly] 0 applic TP BID 05/16/17 Mag Hydrox/Al Hydrox/Simeth [Mylanta Oral Suspension -] 30 ml PO Q4H PRN Magnesium Oxide [Mag-Ox -] 400 ml PO BID 05/16/17 Melatonin 3 mg PO HS 05/16/17 Metoprolol Tartrate [Lopressor] 25 mg PO BID 05/16/17 Montelukast Na [Singulair -] 10 mg PO HS 05/16/17 Nystatin Cream [Mycostatin Cream -] 1 applic TP BID 05/16/17 Omeprazole 20 mg PO DAILY 05/16/17 Polyethylene Glycol 3350 [Miralax 119 gm Btl -] 17 gm PO DAILY PRN 05/16/17 Pregabalin [Lyrica -] 150 mg PO Q8H 05/16/17 Salmeterol/Fluticasone [Advair 100Mcg/50Mcg -] 1 inh PO BID 05/16/17 Sennosides [Senna] 2 tab PO BID 05/16/17 Apixaban [Eliquis -] 5 mg PO BID tablet 05/20/17 Ferrous Sulfate [Feosol] 325 mg PO BIDWM tablet 05/20/17 Oxycodone HCl [Roxicodone -] 5 mg PO Q4H PRN #60 tablet MDD 4 05/20/17 Levetiracetam [Keppra -] 500 mg PO BID 05/30/17 Family Disease History - Family Disease History Family Disease History: Other: Father ( 44: CVA), Mother ( 93: old age) , Sister (2 sisters, healthy) Review of Systems Findings/Remarks: Full review of systems obtained, as per HPI and otherwise negative Physical Examination Vital Signs: Vital Signs Temperature 36.4 C 07/21/17 11:11 Pulse Rate 94 H 07/21/17 13:02 Respiratory Rate 26 H 07/21/17 13:02 Blood Pressure 162/113 07/21/17 13:02 O2 Sat by Pulse Oximetry (%) 94 L 07/21/17 13:02 Constitutional: Yes: Well Nourished, No Distress, Calm Eyes: Yes: Conjunctiva Clear, EOM Intact, PERRL Cardiovascular: Yes: Regular Rate and Rhythm. No: Gallop, Murmur, Rub Respiratory: Yes: Regular, On Nasal O2, Rhonchi. No: CTA Bilaterally, Rales, Wheezes Gastrointestinal: Yes: Normal Bowel Sounds, Soft. No: Distention, Tenderness Extremities: Yes: WNL Edema: Yes Edema: LLE: 1+, RLE: 1+ Labs: CBC, BMP 07/21/17 12:50 07/21/17 12:50 Imaging - Results Chest X-ray: Report Reviewed, Image Reviewed EKG: Image Reviewed Problem List - Problems (1) CHF (congestive heart failure) Assessment/Plan: -patient with newly diagnosed CHF -admit to telemetry -I/Os and daily weights -diuresing well with lasix, will continue -repeat ECHO since acute change -cardiac enzymes x3 -consult cardiology Code(s): I50.9 - HEART FAILURE, UNSPECIFIED Qualifiers: Congestive heart failure type: unspecified congestive heart failure type Congestive heart failure chronicity: acute Qualified Code(s): I50.9 - Heart failure, unspecified; I50.9 - Heart failure, unspecified; I50.9 - Heart failure, unspecified; I50.9 - Heart failure, unspecified (2) Atrial fibrillation Assessment/Plan: -currently in sinus rhythm -continue eliquis and metoprolol -monitor on telemetry since with new onset CHF Code(s): I48.91 - UNSPECIFIED ATRIAL FIBRILLATION Qualifiers: Atrial fibrillation type: paroxysmal Qualified Code(s): I48.0 - Paroxysmal atrial fibrillation; I48.0 - Paroxysmal atrial fibrillation; I48.0 - Paroxysmal atrial fibrillation; I48.0 - Paroxysmal atrial fibrillation (3) COPD (chronic obstructive pulmonary disease) Assessment/Plan: -not in exacerbation -continue home regimen Code(s): J44.9 - CHRONIC OBSTRUCTIVE PULMONARY DISEASE, UNSPECIFIED Qualifiers : COPD type: unspecified COPD Qualified Code(s): J44.9 - Chronic obstructive pulmonary disease, unspecified; J44.9 - Chronic obstructive pulmonary disease, unspecified; J44.9 - Chronic obstructive pulmonary disease, unspecified; J44.9 - Chronic obstructive pulmonary disease, unspecified (4) HTN (hypertension) Assessment/Plan: -continue metoprolol -on IV lasix -will add lisinopril 10mg daily and monitor renal function Code(s): I10 - ESSENTIAL (PRIMARY) HYPERTENSION Qualifiers: Hypertension type: essential hypertension Qualified Code(s): I10 - Essential (primary) hypertension; I10 - Essential (primary) hypertension; I10 - Essential (primary) hypertension (5) Seizure Assessment/Plan: -continue keppra Code(s): R56.9 - UNSPECIFIED CONVULSIONS (6) Trigeminal neuralgia Assessment/Plan: -continue lyrica -well controlled Code(s): G50.0 - TRIGEMINAL NEURALGIA
[2017-07-21] MEDS ORDERED: PREGABALIN 50 MG CAPSULE ONE (16:12)
[2017-07-21] MEDS ORDERED: PREGABALIN 100 MG CAPSULE ONE (16:12)
--- NOTE | 2017-07-21 16:59 | EKG ---
Test Reason : Blood Pressure : / mmHG Vent. Rate : 100 BPM Atrial Rate : 100 BPM P-R Int : 168 ms QRS Dur : 096 ms QT Int : 398 ms P-R-T Axes : 041 -13 064 degrees QTc Int : 513 ms NORMAL SINUS RHYTHM POSSIBLE LEFT ATRIAL ENLARGEMENT CANNOT RULE OUT ANTERIOR INFARCT , AGE UNDETERMINED PROLONGED QT ABNORMAL ECG WHEN COMPARED WITH ECG OF 21-JUL-2017 09:17, NO SIGNIFICANT CHANGE WAS FOUND Confirmed by MARIBELL LOPEZ, DARIUS ([id number]) on 07/21/2017 4:58:41 PM Referred By: Confirmed By:DARIUS REYNA MD
[2017-07-21] MEDS: LISINOPRIL 10 MG TABLET (FP) PO SCH (18:04)
[2017-07-21] MEDS: FERROUS SO4 325 MG TABLET (FP) PO SCH (18:04)
[2017-07-21] MEDS ORDERED: FLU VACCINE QUAD 60 MCG/0.5 ML (MDV 17-18) IM ONE (18:52)
[2017-07-21] MEDS ORDERED: PT OWN MED DRAWER 7, Y5N ONE (20:59)
[2017-07-21] MEDS: DOCUSATE SODIUM 100 MG CAPSULE (FP) PO SCH (21:49)
[2017-07-21] MEDS: PREGABALIN 75 MG CAPSULE PO SCH (21:50)
[2017-07-21] MEDS: APIXABAN 5 MG TABLET PO SCH (21:50)
[2017-07-21] MEDS: FLUTICASONE/SALMETEROL 100 MCG/50 MCG DISKUS IH SCH (21:50)
[2017-07-21] MEDS: METOPROLOL TARTRATE 25 MG TABLET (FP) PO SCH (21:50)
[2017-07-21] MEDS: SENNOSIDES 8.6MG TABLET (FP) PO SCH (21:50)
[2017-07-21] MEDS: levETIRAcetam 500 MG TABLET (FP) PO SCH (21:50)
[2017-07-21] MEDS: MAGNESIUM OXIDE 400 MG TABLET (FP) PO SCH (21:50)
[2017-07-21] MEDS: MELATONIN 1 MG TABLET PO SCH (21:50)
[2017-07-21] MEDS: MONTELUKAST NA 10 MG TABLET PO SCH (21:51)
[2017-07-21] MEDS ORDERED: PATIENT'S OWN MEDICATION (NON-FORMULARY) (Melatonin [Melatonin] 3 MG) PO SCH (22:00)
[2017-07-21] MEDS ORDERED: PATIENT'S OWN MEDICATION (NON-FORMULARY) (Diclofenac Sodium [Voltaren] 100 GM) TP SCH (22:00)
[2017-07-21 22:36] LABS: TROPONIN I 0.03 ng/ml (0.00-0.05)
[2017-07-22] MEDS: DOCUSATE SODIUM 100 MG CAPSULE (FP) PO SCH ×3 (06:09→21:00)
[2017-07-22] MEDS: PREGABALIN 75 MG CAPSULE PO SCH ×3 (06:09→21:01)
[2017-07-22 07:33] LABS: BASOPHIL 0.7 % (0-2.0); EOSINOPHIL 4.4 % (0-4.5); MCH 29.6 pg (25.7-33.7); MCHC 32.4 g/dl (32.0-35.9); MEAN CELL VOLUME 91.2 fl (80-96); MEAN PLT VOLUME 8.8 fl (7.5-11.1); NEUTROPHILS 64.8 % (42.8-82.8); PLATELET COUNT 203 K/MM3 (134-434); WHITE BLOOD COUNT 5.3 K/mm3 (4.0-10.0)
[2017-07-22 08:01] LABS: ANION GAP 10 (8-16); CALCIUM 8.7 mg/dL (8.5-10.1); CO2 31 mmol/L (21-32); GLUCOSE,RANDOM 97 mg/dL (74-106); MAGNESIUM 2.4 mg/dL (1.8-2.4)
[2017-07-22 08:03] LABS: CREATININE 0.8 mg/dL (0.7-1.3); PHOSPHOROUS 3.9 mg/dL (2.5-4.9)
[2017-07-22 08:25] LABS: CPK 87 IU/L (39-308)
[2017-07-22 08:26] LABS: TROPONIN I 0.03 ng/ml (0.00-0.05)
[2017-07-22] MEDS ORDERED: PT OWN MED DRAWER 7, Y5N ONE (09:21)
[2017-07-22] MEDS: FUROSEMIDE 40 MG/4 ML INJECTABLE VIAL IVPUSH SCH (09:36)
[2017-07-22] MEDS: FERROUS SO4 325 MG TABLET (FP) PO SCH ×2 (09:36→17:09)
[2017-07-22] MEDS: LACTOBACILLUS ACIDOPHILUS 1 EACH TAB (FP) PO SCH (09:37)
[2017-07-22] MEDS: METOPROLOL TARTRATE 25 MG TABLET (FP) PO SCH (09:37)
[2017-07-22] MEDS: DULoxetine HCL 30 MG CAPSULE.DR (FP) PO SCH (09:37)
[2017-07-22] MEDS: levETIRAcetam 500 MG TABLET (FP) PO SCH ×2 (09:37→21:01)
[2017-07-22] MEDS: LISINOPRIL 10 MG TABLET (FP) PO SCH (09:37)
[2017-07-22] MEDS: MAGNESIUM OXIDE 400 MG TABLET (FP) PO SCH ×2 (09:37→21:01)
[2017-07-22] MEDS: PANTOPRAZOLE 20 MG TABLET (FP) PO SCH (09:37)
[2017-07-22] MEDS: APIXABAN 5 MG TABLET PO SCH ×2 (09:37→21:01)
[2017-07-22] MEDS: FOLIC ACID 1 MG TABLET (FP) PO SCH (09:37)
[2017-07-22] MEDS: SENNOSIDES 8.6MG TABLET (FP) PO SCH ×2 (09:38→21:00)
[2017-07-22] MEDS: ASCORBIC ACID 500 MG TABLET (FP) PO SCH (09:38)
[2017-07-22] MEDS: FLUTICASONE/SALMETEROL 100 MCG/50 MCG DISKUS IH SCH ×2 (09:39→21:00)
[2017-07-22] MEDS ORDERED: PATIENT'S OWN MEDICATION (NON-FORMULARY) (Omeprazole 20 MG) PO SCH (10:00)
[2017-07-22] MEDS ORDERED: PATIENT'S OWN MEDICATION (NON-FORMULARY) (Ascorbate Calcium [Vitamin C] 500 MG) PO SCH (10:00)
--- NOTE | 2017-07-22 10:01 | PN ---
Progress Note (short form) - Note Progress Note: Patient less SOB but still uncomfortable even when sitting up at bedside. Patient's fluid accumulation may be related to pain Rx for neuropathy and previous osteomyelitis and discitis. Possibly Lyrica and NSAID exacerbated this issue. Await Cardiology opinion; May need BID Lasix IV. BNP elevated but renal lab stable. On Exam: Vital Signs Temp 97.9 F 07/22/17 09:02 Pulse 89 07/22/17 09:02 Resp 20 07/22/17 09:02 BP 143/88 07/22/17 09:02 Pulse Ox 96 07/22/17 09:02 Intake & Output 07/21/17 07/21/17 07/22/17 11:59 23:59 11:59 Intake Total 100 100 Output Total 1600 200 Balance -1500 -100 Weight 170 lb 170 lb 176 lb Intake: Oral 100 100 Output: Urine 1600 200 Void 1600 200 Other: Voiding Method Urinal Urinal Bowel Movement No No Height 5 ft 10 in 5 ft 10 in Body Mass Index (BMI) 24.3 24.3 Weight Measurement Method Standing Scale Alert sitting at bedside slightly SOB Chest:Rales both bases and decreased breath sound at bases Cor Tachycardia but regular Abd; Soft Ext:1-2+ edema Abnormal Lab Results 07/21/17 07/21/17 07/21/17 12:50 12:50 12:50 MCHC 31.9 L RDW 19.8 H D Monocytes % PT with INR INR Anion Gap 7 L Lactic Acid 2.4 H* AST 13 L D Alkaline Phosphatase 133 H D B-Natriuretic Peptide 7687.61 H 07/21/17 07/22/17 12:50 06:05 MCHC RDW 20.0 H Monocytes % 11.7 H PT with INR 17.90 H INR 1.58 H Anion Gap Lactic Acid AST Alkaline Phosphatase B-Natriuretic Peptide IMP: Acute CHF Paroxysmal A. Fib Hx: Acute osteomyelitis abnd Discitis Hx MSSA Sepsis Hypertension Plan: Await Cardiology. ? Taper Lyrica dose F/U lab
--- NOTE | 2017-07-22 15:47 | CON.CARD ---
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 - History Source History Provided By: Patient Limitations to Obtaining History: No Limitations - Past Medical History Cardio/Vascular: Yes: AFIB, HTN Pulmonary: Yes: COPD Gastrointestinal: Yes: Other (history of choledocholithiasis s/p ERCP with Dr. 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[employer] History of Recent Travel: No Home Medications - Allergies Allergies/Adverse Reactions: Allergies Allergy/AdvReac Type Severity Reaction Status Date / Time aloe Allergy Severe Rash Verified 07/21/17 11:16 aloe vera Allergy Severe Rash Verified 07/21/17 11:16 - Home Medications Home Medications: Ambulatory Orders Acetaminophen [Tylenol] 650 mg PO Q4H PRN 05/16/17 Ascorbate Calcium [Vitamin C] 500 mg PO DAILY 05/16/17 Bisacodyl [Dulcolax] 10 mg RC HS 05/16/17 Diclofenac Sodium [Voltaren] 100 gm TP BID 05/16/17 Docusate Sodium [Colace -] 100 mg PO TID 05/16/17 Duloxetine HCl [Cymbalta -] 30 mg PO DAILY 05/16/17 Folic Acid 1 mg PO DAILY 05/16/17 Guaifenesin Dm [Robitussin Dm -] 5 ml PO Q4H PRN 05/16/17 Ipratropium/Albuterol Sulfate [Iprat-Albut 0.5-3(2.5) mg/3 ml] 3 ml IH Q4H PRN 05/16/17 Lactobacillus Acidophilus [Bacid -] 1 each PO DAILY 05/16/17 Lidocaine 2% Jelly [Xylocaine 2% Jelly] 0 applic TP BID 05/16/17 Mag Hydrox/Al Hydrox/Simeth [Mylanta Oral Suspension -] 30 ml PO Q4H PRN Magnesium Oxide [Mag-Ox -] 400 ml PO BID 05/16/17 Melatonin 3 mg PO HS 05/16/17 Metoprolol Tartrate [Lopressor] 25 mg PO BID 05/16/17 Montelukast Na [Singulair -] 10 mg PO HS 05/16/17 Nystatin Cream [Mycostatin Cream -] 1 applic TP BID 05/16/17 Omeprazole 20 mg PO DAILY 05/16/17 Polyethylene Glycol 3350 [Miralax 119 gm Btl -] 17 gm PO DAILY PRN 05/16/17 Pregabalin [Lyrica -] 50 mg PO Q8H 05/16/17 Salmeterol/Fluticasone [Advair 100Mcg/50Mcg -] 1 inh PO BID 05/16/17 Sennosides [Senna] 2 tab PO BID 05/16/17 Apixaban [Eliquis -] 5 mg PO BID tablet 05/20/17 Ferrous Sulfate [Feosol] 325 mg PO BIDWM tablet 05/20/17 Oxycodone HCl [Roxicodone -] 5 mg PO Q4H PRN #60 tablet MDD 4 05/20/17 Levetiracetam [Keppra -] 500 mg PO BID 05/30/17 Midodrine HCl 2.5 mg PO TID 07/21/17 Family Disease History - Family Disease History Family Disease History: Other: Father ( 44: CVA), Mother ( 93: old age) , Sister (2 sisters, healthy) Vital Signs: Vital Signs Temperature 97.6 F 07/22/17 15:28 Pulse Rate 88 07/22/17 15:28 Respiratory Rate 20 07/22/17 15:28 Blood Pressure 145/88 07/22/17 15:28 O2 Sat by Pulse Oximetry (%) 96 07/22/17 09:02 Constitutional: Yes: No Distress, Calm Neck: Yes: Supple Respiratory: Yes: Regular, Diminished, On Nasal O2 Gastrointestinal: Yes: Normal Bowel Sounds, Soft Cardiovascular: Yes: Regular Rate and Rhythm JVD: No Carotid Bruit: No Heart Sounds: Yes: S1, S2 Murmur: Yes: Systolic Murmur, Grade 2 Edema: Yes Edema: LLE: 1+, RLE: 1+ - Other Data Labs, Other Data: CBC, BMP 07/22/17 06:05 07/22/17 06:05 INR, PTT INR 1.58 (0.82-1.09) H 07/21/17 12:50 Troponin, BNP 07/21/17 07/22/17 07/22/17 21:00 06:05 06:05 Troponin I 0.03 D 0.03 Cancelled Troponin, BNP 07/21/17 07/22/17 07/22/17 21:00 06:05 06:05 Troponin I 0.03 D 0.03 Cancelled NSR @ 100 LAE, LVH similar to previous Echo: Report Reviewed Ejection Fraction %: LVEF < 40 % Imaging - Results Chest X-ray: Pending Problem List - Problems (1) Anemia Code(s): D64.9 - ANEMIA, UNSPECIFIED Qualifiers: Anemia type: iron deficiency (2) Thoracic aortic aneurysm without rupture Code(s): I71.2 - THORACIC AORTIC ANEURYSM, WITHOUT RUPTURE (3) Acute respiratory failure with hypoxia Code(s): J96.01 - ACUTE RESPIRATORY FAILURE WITH HYPOXIA (4) Acute on chronic systolic (congestive) heart failure Code(s): I50.23 - ACUTE ON CHRONIC SYSTOLIC (CONGESTIVE) HEART FAILURE (5) Hypertensive cardiomyopathy Code(s): I11.9 - HYPERTENSIVE HEART DISEASE WITHOUT HEART FAILURE I43 - CARDIOMYOPATHY IN DISEASES CLASSIFIED ELSEWHERE Qualifiers: Heart failure presence: with heart failure Qualified Code(s): I11.0 - Hypertensive heart disease with heart failure; I11.0 - Hypertensive heart disease with heart failure; I11.0 - Hypertensive heart disease with heart failure; I11.0 - Hypertensive heart disease with heart failure; I43 - Cardiomyopathy in diseases classified elsewhere; I43 - Cardiomyopathy in diseases classified elsewhere; I43 - Cardiomyopathy in diseases classified elsewhere; I43 - Cardiomyopathy in diseases classified elsewhere (6) Paroxysmal atrial fibrillation Code(s): I48.0 - PAROXYSMAL ATRIAL FIBRILLATION (7) Pleural effusion due to CHF (congestive heart failure) Code(s): I50.9 - HEART FAILURE, UNSPECIFIED Assessment/Plan 04/02/2017 Echo: Normal LV size and fxn, mod MR, mild TAI, mild-mod AR, mild Ao diltatation 07/22/2017 Echo: Mildly dilated LV with severe decreased LV fxn, mild decreased RV fxn, mod LAE, [id number] TR, mild MR, AR, pleural effusion 1. Acute hypoxic respiratory failure referable to acute on chronic LV systolic failure with pleural effusions improving 2. PAF remains in sinus rhythm [id number] score of 3 3. H/o post-tussive syncope - suspect neurocardiogenic 4. Post laparoscopic cholecystectomy - post surgically stable 5. Hypertension 6. History of discitis and paraspinal abscess and MSSA sepsis 7. COPD PLAN: 1. IV diuresis and add Aldactone 25 qd with monitor diuretic response renal function and electrolytes, check TSH 2. Change Lopressor to carvedilol 6.25 bid with uptitration as tolerated 3. Change lisinopril to Diovan 80 qd with uptitration as tolerated, eventual Entresto as outpatient 4. Continue Eliquis 5 bid 5. Recommend R&LHC to establish etiology of newly diagnosed cardiomyopathy, discussed with patient, Eliquis to be held 24 hours prior 6. Thank you for consultative opportunity
[2017-07-22] MEDS ORDERED: POTASSIUM CHLORIDE TABS 20 MEQ TABLET.ER (FP) PO ONE (16:16)
[2017-07-22] MEDS ORDERED: FUROSEMIDE 40 MG/4 ML INJECTABLE VIAL IVPUSH ONE (17:00)
[2017-07-22] MEDS: SPIRONOLACTONE 25 MG TABLET (FP) PO SCH (17:09)
[2017-07-22] MEDS: MONTELUKAST NA 10 MG TABLET PO SCH (21:01)
[2017-07-22] MEDS: CARVEDILOL 6.25 MG TABLET (FP) PO SCH (21:01)
[2017-07-22] MEDS: MELATONIN 1 MG TABLET PO SCH (21:01)
[2017-07-23] MEDS: PREGABALIN 75 MG CAPSULE PO SCH (05:14)
[2017-07-23] MEDS: DOCUSATE SODIUM 100 MG CAPSULE (FP) PO SCH ×3 (05:14→21:32)
[2017-07-23 08:04] LABS: ANION GAP 3 (8-16); CALCIUM 8.2 mg/dL (8.5-10.1); CO2 39 mmol/L (21-32); CREATININE 0.8 mg/dL (0.7-1.3); GLUCOSE,RANDOM 89 mg/dL (74-106)
[2017-07-23 08:12] LABS: THYROID STIMULATING HORMONE 0.64 uIU/ml (0.358-3.74)
[2017-07-23] MEDS ORDERED: PT OWN MED DRAWER 7, Y5N ONE ×3 (08:55→21:25)
[2017-07-23] MEDS: APIXABAN 5 MG TABLET PO SCH ×2 (09:00→21:29)
[2017-07-23] MEDS: MAGNESIUM OXIDE 400 MG TABLET (FP) PO SCH ×2 (09:00→21:29)
[2017-07-23] MEDS: levETIRAcetam 500 MG TABLET (FP) PO SCH ×2 (09:00→21:29)
[2017-07-23] MEDS: SENNOSIDES 8.6MG TABLET (FP) PO SCH ×2 (09:00→21:32)
[2017-07-23] MEDS: PANTOPRAZOLE 20 MG TABLET (FP) PO SCH (09:00)
[2017-07-23] MEDS: FERROUS SO4 325 MG TABLET (FP) PO SCH ×2 (09:00→17:33)
[2017-07-23] MEDS: LACTOBACILLUS ACIDOPHILUS 1 EACH TAB (FP) PO SCH (09:00)
[2017-07-23] MEDS: DULoxetine HCL 30 MG CAPSULE.DR (FP) PO SCH (09:01)
[2017-07-23] MEDS: FOLIC ACID 1 MG TABLET (FP) PO SCH (09:01)
[2017-07-23] MEDS: SPIRONOLACTONE 25 MG TABLET (FP) PO SCH (09:01)
[2017-07-23] MEDS: FLUTICASONE/SALMETEROL 100 MCG/50 MCG DISKUS IH SCH ×2 (09:02→21:28)
[2017-07-23] MEDS: FUROSEMIDE 40 MG/4 ML INJECTABLE VIAL IVPUSH SCH (09:03)
[2017-07-23] MEDS ORDERED: PREGABALIN 75 MG CAPSULE PO SCH (10:17)
--- NOTE | 2017-07-23 10:30 | PN ---
Progress Note (short form) - Note Progress Note: Patient seen and examined Chart reviewed. Currently sitting up OOB to chair, alert, responsive and appropriate, but had a brief (?15 seconds?) episode of "absence" after coughing Patient drooped to his left side and a right hand tremor was noted. This was witnessed by me and Dr Calvert. The patient returned to his normal state and commented that he has seen neurologists in the past and had one such episode after coughing in the neurologists office. Labs, radiologic procedures and progress notes reviewed. Case discussed with Dr Calvert in regard to ECHO findings in light of clinical presentation and need for cardiac catheterization Selected Entries 07/23/17 07/23/17 06:00 09:00 Temperature 97.8 F Pulse Rate 99 H Respiratory 18 Rate Blood Pressure 109/62 Weight 173 lb 4 oz Weight Standing Scale Measurement Method Laboratory Tests 07/21/17 07/22/17 07/23/17 12:50 06:05 06:30 WBC 5.3 Hgb 12.2 Hct 37.6 Plt Count 203 INR 1.58 H Sodium 142 Potassium 3.7 Chloride 100 Carbon Dioxide 39 H D BUN 15 Creatinine 0.8 Random Glucose 89 Calcium 8.2 L TSH 0.64 D Chest Clear with decreased BS at bases No wheeze or rhonchi Cor Irregular Ectopics Telemetry Sinus with PVCs Occasional couplets Abd Soft Non-tender Ext Mild peripheral edema Neuro No new focal deficit Brief event as described above Assessment and Plan CHF Global hypokinesis on ECHO Consider Cardiac Cath ASHD TAA Spinal discitis with abscess MSSA bacteremia Cholecystectomy H/O Syncope Dysrhythmia PAF PVCs Anemia Stable Increased RVSP Right heart cath COPD Chronic cough May require short course of corticosteroids if no improvement Possible cough-syncope variant with brief episode noted above Neuro assessment On anti-seizure Rx No residual neuro deficit. Continue current Rx
--- NOTE | 2017-07-23 11:12 | RAPID ---
Physical Examination Vital Signs: Vital Signs Temperature 97.8 F 07/23/17 09:00 Pulse Rate 99 H 07/23/17 09:00 Respiratory Rate 18 07/23/17 09:00 Blood Pressure 109/62 07/23/17 09:00 O2 Sat by Pulse Oximetry (%) 96 07/22/17 20:28 Findings/Remarks: Rapid response called overhead in morning Upon arrival patient was unresponsive laying flat in bed. Pulses were palpated and patient suddenly became arousable and was speaking normally without any overt neuro deficits. Pt reports coming back from the bathroom, laying down in bed, coughing and then suddenly realizing there was the hospital staff around him --Pt denies any Monitor shows sinus bradycardic event prior to our arrival down to 30bpm. Constitutional: Yes: No Distress, Calm, Anxious. No: Diaphoresis Cardiovascular: Yes: Bradycardia. No: Murmur Respiratory: Yes: Regular, On Nasal O2, Rales (noted diffusely) Gastrointestinal: Yes: Normal Bowel Sounds, Soft. No: Tenderness Edema: Yes Edema: LUE: 2+, RUE: 2+ Peripheral Pulses WNL: Yes Neurological: Yes: Alert, Oriented, Other (Strength 5/5 throughout, sensation grossly intact throughout, reflexes 2/4 throughout) Labs: CBC, BMP 07/22/17 06:05 07/23/17 06:30 Rapid Response - Rapid Response Assessment: A/P 1) Vasovagal response 2/2 coughing in setting of sinus bradycardia --Ekg stat ordered --Results showing Sinus bradycardia (unchanged from original) with T wave inversions which were more prominent in precordial leads --Stat troponin ordered due to inversions --Case discussed with Dr. Galindo --Pt currently stable
[2017-07-23] MEDS: CARVEDILOL 6.25 MG TABLET (FP) PO SCH ×2 (11:15→21:29)
--- NOTE | 2017-07-23 11:40 | CON.NEURO ---
Consult - History of Present Illness History of Present Illness: 77 year old male history of CHF, HTN , ATRIAL FIBRILLATION, S/P cholecystectomy recently , back pain . Patient is on keppra 500 mg po bid and lyrica 50 mg po tid ( trigeminal neuralgia and back pain) and he had episode of low heart rate ( 30s) and bp dropped and he become unresponsive for few seconds and his right hand was shaking. There was no tongue bite or post ictal confusion. Previously his mri of brain and eeg were normal. Pateint had previous episode quite similar when he would have syncopal episodes. - Past Medical History Cardio/Vascular: Yes: AFIB, HTN Pulmonary: Yes: COPD Gastrointestinal: Yes: Other (history of choledocholithiasis s/p ERCP with Dr. 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[employer] History of Recent Travel: No Home Medications - Allergies Allergies/Adverse Reactions: Allergies Allergy/AdvReac Type Severity Reaction Status Date / Time aloe Allergy Severe Rash Verified 07/21/17 11:16 aloe vera Allergy Severe Rash Verified 07/21/17 11:16 - Home Medications Home Medications: Ambulatory Orders Acetaminophen [Tylenol] 650 mg PO Q4H PRN 05/16/17 Ascorbate Calcium [Vitamin C] 500 mg PO DAILY 05/16/17 Bisacodyl [Dulcolax] 10 mg RC HS 05/16/17 Diclofenac Sodium [Voltaren] 100 gm TP BID 05/16/17 Docusate Sodium [Colace -] 100 mg PO TID 05/16/17 Duloxetine HCl [Cymbalta -] 30 mg PO DAILY 05/16/17 Folic Acid 1 mg PO DAILY 05/16/17 Guaifenesin Dm [Robitussin Dm -] 5 ml PO Q4H PRN 05/16/17 Ipratropium/Albuterol Sulfate [Iprat-Albut 0.5-3(2.5) mg/3 ml] 3 ml IH Q4H PRN 05/16/17 Lactobacillus Acidophilus [Bacid -] 1 each PO DAILY 05/16/17 Lidocaine 2% Jelly [Xylocaine 2% Jelly] 0 applic TP BID 05/16/17 Mag Hydrox/Al Hydrox/Simeth [Mylanta Oral Suspension -] 30 ml PO Q4H PRN Magnesium Oxide [Mag-Ox -] 400 ml PO BID 05/16/17 Melatonin 3 mg PO HS 05/16/17 Metoprolol Tartrate [Lopressor] 25 mg PO BID 05/16/17 Montelukast Na [Singulair -] 10 mg PO HS 05/16/17 Nystatin Cream [Mycostatin Cream -] 1 applic TP BID 05/16/17 Omeprazole 20 mg PO DAILY 05/16/17 Polyethylene Glycol 3350 [Miralax 119 gm Btl -] 17 gm PO DAILY PRN 05/16/17 Pregabalin [Lyrica -] 50 mg PO Q8H 05/16/17 Salmeterol/Fluticasone [Advair 100Mcg/50Mcg -] 1 inh PO BID 05/16/17 Sennosides [Senna] 2 tab PO BID 05/16/17 Apixaban [Eliquis -] 5 mg PO BID tablet 05/20/17 Ferrous Sulfate [Feosol] 325 mg PO BIDWM tablet 05/20/17 Oxycodone HCl [Roxicodone -] 5 mg PO Q4H PRN #60 tablet MDD 4 05/20/17 Levetiracetam [Keppra -] 500 mg PO BID 05/30/17 Midodrine HCl 2.5 mg PO TID 07/21/17 Family Disease History - Family Disease History Family Disease History: Other: Father ( 44: CVA), Mother ( 93: old age) , Sister (2 sisters, healthy) Physical Exam-Neuro Vital Signs: Vital Signs Temperature 97.8 F 07/23/17 09:00 Pulse Rate 79 07/23/17 11:20 Respiratory Rate 18 11/04/17 09:00 Blood Pressure 73/45 07/23/17 11:20 O2 Sat by Pulse Oximetry (%) 96 07/22/17 20:28 Labs: CBC, BMP 07/22/17 06:05 07/23/17 06:30 INR, PTT INR 1.58 (0.82-1.09) H 07/21/17 12:50 Assessment/Plan CC possible episode of syncope and shaking today HPI 77 year old male history of CHF, HTN , ATRIAL FIBRILLATION, S/P cholecystectomy recently , back pain . Patient is on keppra 500 mg po bid and lyrica 50 mg po tid ( trigeminal neuralgia and back pain) and he had episode of low heart rate ( 30s) and bp dropped and he become unresponsive for few seconds and his right hand was shaking. There was no tongue bite or post ictal confusion. Previously his mri of brain and eeg were normal. Pateint had previous episode quite similar when he would have syncopal episodes. Home Medications: Acetaminophen [Tylenol] 650 mg PO Q4H PRN 05/16/17 Ascorbate Calcium [Vitamin C] 500 mg PO DAILY 05/16/17 Bisacodyl [Dulcolax] 10 mg RC HS 05/16/17 Diclofenac Sodium [Voltaren] 100 gm TP BID 05/16/17 Docusate Sodium [Colace -] 100 mg PO TID 05/16/17 Duloxetine HCl [Cymbalta -] 30 mg PO DAILY 05/16/17 Folic Acid 1 mg PO DAILY 05/16/17 Guaifenesin Dm [Robitussin Dm -] 5 ml PO Q4H PRN 05/16/17 Ipratropium/Albuterol Sulfate [Iprat-Albut 0.5-3(2.5) mg/3 ml] 3 ml IH Q4H PRN 05/16/17 Lactobacillus Acidophilus [Bacid -] 1 each PO DAILY 05/16/17 Lidocaine 2% Jelly [Xylocaine 2% Jelly] 0 applic TP BID 05/16/17 Mag Hydrox/Al Hydrox/Simeth [Mylanta Oral Suspension -] 30 ml PO Q4H PRN Magnesium Oxide [Mag-Ox -] 400 ml PO BID 05/16/17 Melatonin 3 mg PO HS 05/16/17 Metoprolol Tartrate [Lopressor] 25 mg PO BID 05/16/17 Montelukast Na [Singulair -] 10 mg PO HS 05/16/17 Nystatin Cream [Mycostatin Cream -] 1 applic TP BID 05/16/17 Omeprazole 20 mg PO DAILY 05/16/17 Polyethylene Glycol 3350 [Miralax 119 gm Btl -] 17 gm PO DAILY PRN 05/16/17 Pregabalin [Lyrica -] 150 mg PO Q8H 05/16/17 Salmeterol/Fluticasone [Advair 100Mcg/50Mcg -] 1 inh PO BID 05/16/17 Sennosides [Senna] 2 tab PO BID 05/16/17 Apixaban [Eliquis -] 5 mg PO BID tablet 05/20/17 Ferrous Sulfate [Feosol] 325 mg PO BIDWM tablet 05/20/17 Oxycodone HCl [Roxicodone -] 5 mg PO Q4H PRN #60 tablet MDD 4 05/20/17 Levetiracetam [Keppra -] 500 mg PO BID 05/30/17 Past Medical History as above and ROS reviwed in chart Neurological Examination Alert oriented x 3 CN all intact, eomi and no facial asymmetry Motor moving all extremity reflex are diminished sensation is normal Assessment Episode of passing out with shaking, it appear to be syncope episode secondary to cardiac cause, Some shaking have been reported during syncope episode. As there was no tongue bite , incontinence or post ictal confusion, This episode unlikley to be brekathrough seizure, Patient is on two AED . Plan -- no need for brain imaging at this time, as he came back to baseline and there is no focal neurological symptoms - an EEG cab be obtained for possible seizure - continue AED same dose , no need to increase dose - cardiology is on case and addressing underlying cardiac condition Thanking you so much Fabian Duffy MD
[2017-07-23] MEDS: VALSARTAN 80 MG TABLET (UD) PO SCH (12:05)
[2017-07-23] MEDS: ASCORBIC ACID 500 MG TABLET (FP) PO SCH ×2 (12:05→13:50)
--- NOTE | 2017-07-23 13:53 | PN ---
Progress Note, Physician Chief Complaint: Events noted Episodes of near syncope with bradycardia and pauses after cough. Denies chest pain, SOB or palpitations History of Present Illness: Patient was seen and examined. Awake and alert. Chart was reviewed As outlined Monitor reviewed - Current Medication List Current Medications: Active Medications Acetaminophen (Tylenol -) 650 mg PO Q4H PRN PRN Reason: PAIN Albuterol/Ipratropium (Duoneb -) 1 amp NEB Q4H PRN PRN Reason: SHORTNESS OF BREATH Apixaban (Eliquis -) 5 mg PO BID [facility] Last Admin: 07/23/17 09:00 Dose: 5 mg Ascorbic Acid (Vitamin C -) 500 mg PO DAILY [facility] Last Admin: 07/23/17 12:05 Dose: Not Given Carvedilol (Coreg -) 6.25 mg PO BID [facility] Last Admin: 07/23/17 11:15 Dose: Not Given Docusate Sodium (Colace -) 100 mg PO TID [facility] Last Admin: 07/23/17 05:14 Dose: Not Given Duloxetine HCl (Cymbalta -) 30 mg PO DAILY [facility] Last Admin: 07/23/17 09:01 Dose: 30 mg Ferrous Sulfate (Feosol -) 325 mg PO BIDWM [facility] Last Admin: 07/23/17 09:00 Dose: 325 mg Folic Acid (Folic Acid -) 1 mg PO DAILY [facility] Last Admin: 07/23/17 09:01 Dose: 1 mg Furosemide (Lasix Injection -) 40 mg IVPUSH DAILY [facility] Last Admin: 07/23/17 09:03 Dose: 40 mg Lactobacillus Acidophilus (Bacid -) 1 tab PO DAILY [facility] Last Admin: 07/23/17 09:00 Dose: 1 tab Levetiracetam (Keppra -) 500 mg PO BID [facility] Last Admin: 07/23/17 09:00 Dose: 500 mg Magnesium Oxide (Mag-Ox -) 400 mg PO BID [facility] Last Admin: 07/23/17 09:00 Dose: 400 mg Melatonin (Melatonin) 3 mg PO HS [facility] Last Admin: 07/22/17 21:01 Dose: 3 mg Montelukast Sodium (Singulair -) 10 mg PO HS [facility] Last Admin: 07/22/17 21:01 Dose: 10 mg Non-Formulary Medication (Diclofenac Sodium [Voltaren]) 100 gm TP DAILY [facility] Oxycodone HCl (Roxicodone -) 5 mg PO Q4H PRN PRN Reason: MILD PAIN Pantoprazole Sodium (Protonix -) 20 mg PO DAILY [facility] Last Admin: 07/23/17 09:00 Dose: 20 mg Polyethylene Glycol (Miralax (For Daily Use) -) 17 gm PO DAILY PRN PRN Reason: CONSTIPATION Pregabalin (Lyrica -) 50 mg PO TID [facility] Fluticasone/Salmeterol (Advair 100mcg/50mcg -) 1 puff IH BID [facility] Last Admin: 07/23/17 09:02 Dose: 1 puff Senna (Senna -) 2 tab PO BID [facility] Last Admin: 07/23/17 09:00 Dose: 2 tab Spironolactone (Aldactone -) 25 mg PO DAILY [facility] Last Admin: 07/23/17 09:01 Dose: 25 mg Valsartan (Diovan -) 80 mg PO DAILY [facility] Last Admin: 07/23/17 12:05 Dose: Not Given - Objective Vital Signs: Vital Signs Temperature 98.2 F 07/23/17 13:21 Pulse Rate 88 07/23/17 13:21 Respiratory Rate 22 07/23/17 13:21 Blood Pressure 105/52 07/23/17 13:21 O2 Sat by Pulse Oximetry (%) 96 07/22/17 20:28 Neck: Yes: Supple Cardiovascular: Yes: Regular Rate and Rhythm, Murmur (SM), S1, S2 Respiratory: Yes: Diminished Gastrointestinal: Yes: Normal Bowel Sounds, Soft. No: Tenderness Edema: No Additional Findings/Remarks: - Review of Systems Constitutional: denies: Chills, Fever Cardiovascular: (-) Chest Pain, denies: Palpitations, (-) Shortness of Breath Respiratory: (+) Cough, denies: Hemoptysis, Orthopnea, PND,(-) SOB, SOB on Exertion Gastrointestinal: denies: Abdominal Pain, Constipation, Diarrhea, Melena, Nausea , Rectal Bleeding, Vomiting Genitourinary: denies: Flank Pain, Hematuria Musculoskeletal: denies: Joint Pain Neurological: denies: Dizziness, Headache, Seizure, (+) Syncope Labs: CBC, BMP 07/22/17 06:05 07/23/17 06:30 INR, PTT INR 1.58 (0.82-1.09) H 07/21/17 12:50 Problem List - Problems (1) Acute on chronic systolic (congestive) heart failure Code(s): I50.23 - ACUTE ON CHRONIC SYSTOLIC (CONGESTIVE) HEART FAILURE (2) Acute respiratory failure with hypoxia Code(s): J96.01 - ACUTE RESPIRATORY FAILURE WITH HYPOXIA (3) Paroxysmal atrial fibrillation Code(s): I48.0 - PAROXYSMAL ATRIAL FIBRILLATION (4) Pleural effusion due to CHF (congestive heart failure) Code(s): I50.9 - HEART FAILURE, UNSPECIFIED (5) Cholecystitis with cholelithiasis Code(s): K80.10 - CALCULUS OF GALLBLADDER W CHRONIC CHOLECYST W/O OBSTRUCTION (6) Discitis Code(s): M46.40 - DISCITIS, UNSPECIFIED, SITE UNSPECIFIED (7) HTN (hypertension) Code(s): I10 - ESSENTIAL (PRIMARY) HYPERTENSION Qualifiers: Hypertension type: essential hypertension Qualified Code(s): I10 - Essential (primary) hypertension; I10 - Essential (primary) hypertension; I10 - Essential (primary) hypertension (8) S/P laparoscopic cholecystectomy Code(s): Z90.49 - ACQUIRED ABSENCE OF OTHER SPECIFIED PARTS OF DIGESTIVE TRACT (9) Syncope Code(s): R55 - SYNCOPE AND COLLAPSE Qualifiers: Syncope type: vasovagal syncope Qualified Code(s): R55 - Syncope and collapse; R55 - Syncope and collapse Assessment/Plan 1. Acute hypoxic respiratory failure referable to acute on chronic LV systolic failure with pleural effusions improving - worsened LV systolic dysfunction 2. PAF remains in sinus rhythm [id number] score of 3 3. History of post-tussive syncope 4. Post laparoscopic cholecystectomy - post surgically stable 5. Hypertension 6. History of discitis and paraspinal abscess and MSSA sepsis 7. COPD PLAN: 1. IV diuresis and Aldactone 25 qd with monitor renal function and electrolytes 2. Continue Carvedilol 6.25 bid with up-titration as tolerated 3. Continue Diovan 80 qd with uptitration as tolerated, eventual Entresto may be tried as outpatient 4. Continue Eliquis 5 bid except it should be stopped prior to cardiac catheterization tentatively Tuesday 5. Recommend R & LHC as outlined. Will make arrangement Further plans are to follow Jaquan Calvert MD
[2017-07-23] MEDS: PREGABALIN 50 MG CAPSULE PO SCH ×2 (13:56→21:29)
[2017-07-23] MEDS: MELATONIN 1 MG TABLET PO SCH (21:28)
[2017-07-23] MEDS: MONTELUKAST NA 10 MG TABLET PO SCH (21:29)
[2017-07-24] MEDS: PREGABALIN 50 MG CAPSULE PO SCH ×3 (05:57→21:29)
[2017-07-24] MEDS: DOCUSATE SODIUM 100 MG CAPSULE (FP) PO SCH ×3 (05:59→21:29)
[2017-07-24 08:21] LABS: BASOPHIL 0.4 % (0-2.0); EOSINOPHIL 6.2 % (0-4.5); MCH 29.4 pg (25.7-33.7); MCHC 31.5 g/dl (32.0-35.9); MEAN CELL VOLUME 93.3 fl (80-96); MEAN PLT VOLUME 8.9 fl (7.5-11.1); NEUTROPHILS 60.1 % (42.8-82.8); PLATELET COUNT 191 K/MM3 (134-434); RDW 19.6 % (11.9-15.9); WHITE BLOOD COUNT 5.1 K/mm3 (4.0-10.0)
[2017-07-24 08:51] LABS: ALBUMIN 2.8 g/dl (3.4-5.0); ALK PHOS 98 U/L (45-117); ANION GAP 5 (8-16); BILIRUBIN,TOTAL 0.5 mg/dL (0.2-1.0); CALCIUM 8.6 mg/dL (8.5-10.1); CO2 37 mmol/L (21-32); CREATININE 0.7 mg/dL (0.7-1.3); GLUCOSE,RANDOM 86 mg/dL (74-106); MAGNESIUM 2.1 mg/dL (1.8-2.4); SGOT/AST 9 U/L (15-37); SGPT/ALT 11 U/L (12-78); TOT PROT 6.3 g/dl (6.4-8.2)
[2017-07-24] MEDS ORDERED: PT OWN MED DRAWER 7, Y5N ONE ×3 (09:18→21:23)
[2017-07-24] MEDS: SENNOSIDES 8.6MG TABLET (FP) PO SCH ×2 (09:27→21:29)
[2017-07-24] MEDS: LACTOBACILLUS ACIDOPHILUS 1 EACH TAB (FP) PO SCH (09:28)
[2017-07-24] MEDS: CARVEDILOL 6.25 MG TABLET (FP) PO SCH ×2 (09:28→21:29)
[2017-07-24] MEDS: PANTOPRAZOLE 20 MG TABLET (FP) PO SCH (09:28)
[2017-07-24] MEDS: APIXABAN 5 MG TABLET PO SCH (09:28)
[2017-07-24] MEDS: FOLIC ACID 1 MG TABLET (FP) PO SCH (09:28)
[2017-07-24] MEDS: DULoxetine HCL 30 MG CAPSULE.DR (FP) PO SCH (09:28)
[2017-07-24] MEDS: levETIRAcetam 500 MG TABLET (FP) PO SCH ×2 (09:28→21:29)
[2017-07-24] MEDS: VALSARTAN 80 MG TABLET (UD) PO SCH (09:28)
[2017-07-24] MEDS: ASCORBIC ACID 500 MG TABLET (FP) PO SCH (09:28)
[2017-07-24] MEDS: FERROUS SO4 325 MG TABLET (FP) PO SCH ×2 (09:28→17:12)
[2017-07-24] MEDS: SPIRONOLACTONE 25 MG TABLET (FP) PO SCH (09:28)
[2017-07-24] MEDS: MAGNESIUM OXIDE 400 MG TABLET (FP) PO SCH ×2 (09:28→21:29)
[2017-07-24] MEDS: FLUTICASONE/SALMETEROL 100 MCG/50 MCG DISKUS IH SCH ×2 (09:33→21:28)
[2017-07-24] MEDS: FUROSEMIDE 40 MG/4 ML INJECTABLE VIAL IVPUSH SCH (09:33)
--- NOTE | 2017-07-24 10:45 | PN ---
Progress Note, Physician Chief Complaint: Events noted No further episode of syncope due to cough or bradycardia Denies chest pain, SOB or palpitations History of Present Illness: Patient was seen and examined. Awake and alert. Chart was reviewed As outlined Monitor reviewed - Current Medication List Current Medications: Active Medications Acetaminophen (Tylenol -) 650 mg PO Q4H PRN PRN Reason: PAIN Albuterol/Ipratropium (Duoneb -) 1 amp NEB Q4H PRN PRN Reason: SHORTNESS OF BREATH Last Admin: 07/24/17 06:30 Dose: 1 amp Apixaban (Eliquis -) 5 mg PO BID [facility] Last Admin: 07/24/17 09:28 Dose: 5 mg Ascorbic Acid (Vitamin C -) 500 mg PO DAILY [facility] Last Admin: 07/24/17 09:28 Dose: 500 mg Carvedilol (Coreg -) 6.25 mg PO BID [facility] Last Admin: 07/24/17 09:28 Dose: 6.25 mg Docusate Sodium (Colace -) 100 mg PO TID [facility] Last Admin: 07/24/17 05:59 Dose: Not Given Duloxetine HCl (Cymbalta -) 30 mg PO DAILY [facility] Last Admin: 07/24/17 09:28 Dose: 30 mg Ferrous Sulfate (Feosol -) 325 mg PO BIDWM [facility] Last Admin: 07/24/17 09:28 Dose: 325 mg Folic Acid (Folic Acid -) 1 mg PO DAILY [facility] Last Admin: 07/24/17 09:28 Dose: 1 mg Furosemide (Lasix Injection -) 40 mg IVPUSH DAILY [facility] Last Admin: 07/24/17 09:33 Dose: 40 mg Lactobacillus Acidophilus (Bacid -) 1 tab PO DAILY [facility] Last Admin: 07/24/17 09:28 Dose: 1 tab Levetiracetam (Keppra -) 500 mg PO BID [facility] Last Admin: 07/24/17 09:28 Dose: 500 mg Magnesium Oxide (Mag-Ox -) 400 mg PO BID [facility] Last Admin: 07/24/17 09:28 Dose: 400 mg Melatonin (Melatonin) 3 mg PO HS [facility] Last Admin: 07/23/17 21:28 Dose: 3 mg Montelukast Sodium (Singulair -) 10 mg PO [facility] Last Admin: 07/23/17 21:29 Dose: 10 mg Non-Formulary Medication (Diclofenac Sodium [Voltaren]) 100 gm TP DAILY [facility] Oxycodone HCl (Roxicodone -) 5 mg PO Q4H PRN PRN Reason: MILD PAIN Pantoprazole Sodium (Protonix -) 20 mg PO DAILY [facility] Last Admin: 07/24/17 09:28 Dose: 20 mg Polyethylene Glycol (Miralax (For Daily Use) -) 17 gm PO DAILY PRN PRN Reason: CONSTIPATION Pregabalin (Lyrica -) 50 mg PO TID [facility] Last Admin: 07/24/17 05:57 Dose: 50 mg Fluticasone/Salmeterol (Advair 100mcg/50mcg -) 1 puff IH BID [facility] Last Admin: 07/24/17 09:33 Dose: 1 puff Senna (Senna -) 2 tab PO BID [facility] Last Admin: 07/24/17 09:27 Dose: Not Given Spironolactone (Aldactone -) 25 mg PO DAILY [facility] Last Admin: 07/24/17 09:28 Dose: 25 mg Valsartan (Diovan -) 80 mg PO DAILY [facility] Last Admin: 07/24/17 09:28 Dose: 80 mg - Objective Vital Signs: Vital Signs Temperature 98.2 F 07/24/17 09:30 Pulse Rate 86 07/24/17 10:13 Respiratory Rate 18 07/24/17 09:30 Blood Pressure 121/73 07/24/17 09:30 O2 Sat by Pulse Oximetry (%) 96 07/24/17 10:13 Neck: Yes: Supple Cardiovascular: Yes: Regular Rate and Rhythm, Murmur (Soft SM), S1, S2 Respiratory: Yes: CTA Bilaterally Gastrointestinal: Yes: Normal Bowel Sounds, Soft. No: Tenderness Edema: No Additional Findings/Remarks: - Review of Systems Constitutional: denies: Chills, Fever Cardiovascular: (-) Chest Pain, denies: Palpitations, (-) Shortness of Breath Respiratory: (+) Cough, denies: Hemoptysis, Orthopnea, PND,(-) SOB, SOB on Exertion Gastrointestinal: denies: Abdominal Pain, Constipation, Diarrhea, Melena, Nausea , Rectal Bleeding, Vomiting Genitourinary: denies: Flank Pain, Hematuria Musculoskeletal: denies: Joint Pain Neurological: denies: Dizziness, Headache, Seizure, (+) Syncope Labs: CBC, BMP 07/24/17 07:40 07/24/17 07:40 Problem List - Problems (1) Acute on chronic systolic (congestive) heart failure Code(s): I50.23 - ACUTE ON CHRONIC SYSTOLIC (CONGESTIVE) HEART FAILURE (2) Acute respiratory failure with hypoxia Code(s): J96.01 - ACUTE RESPIRATORY FAILURE WITH HYPOXIA (3) Paroxysmal atrial fibrillation Code(s): I48.0 - PAROXYSMAL ATRIAL FIBRILLATION (4) Pleural effusion due to CHF (congestive heart failure) Code(s): I50.9 - HEART FAILURE, UNSPECIFIED (5) Cholecystitis with cholelithiasis Code(s): K80.10 - CALCULUS OF GALLBLADDER W CHRONIC CHOLECYST W/O OBSTRUCTION (6) Discitis Code(s): M46.40 - DISCITIS, UNSPECIFIED, SITE UNSPECIFIED (7) HTN (hypertension) Code(s): I10 - ESSENTIAL (PRIMARY) HYPERTENSION Qualifiers: Hypertension type: essential hypertension Qualified Code(s): I10 - Essential (primary) hypertension; I10 - Essential (primary) hypertension; I10 - Essential (primary) hypertension (8) S/P laparoscopic cholecystectomy Code(s): Z90.49 - ACQUIRED ABSENCE OF OTHER SPECIFIED PARTS OF DIGESTIVE TRACT (9) Syncope Code(s): R55 - SYNCOPE AND COLLAPSE Qualifiers: Syncope type: vasovagal syncope Qualified Code(s): R55 - Syncope and collapse; R55 - Syncope and collapse Assessment/Plan 1. Acute hypoxic respiratory failure referable to acute on chronic LV systolic failure with pleural effusions improving - worsened LV systolic dysfunction 2. PAF remains in sinus rhythm [id number] score of 3 3. History of post-tussive syncope 4. Post laparoscopic cholecystectomy - post surgically stable 5. Hypertension 6. History of discitis and paraspinal abscess and MSSA sepsis 7. COPD PLAN: 1. IV diuresis and Aldactone 25 qd with monitor renal function and electrolytes 2. Continue Carvedilol 6.25 bid with up-titration as tolerated 3. Continue Diovan 80 qd with uptitration as tolerated, eventual Entresto may be tried as outpatient 4. Eliquis is to be held 5. Recommend R & LHC as outlined. Will make arrangement tentatively tomorrow Further plans are to follow Jaquan Calvert MD
--- NOTE | 2017-07-24 11:16 | PN ---
Progress Note (short form) - Note Progress Note: Patient seen and examined Chart reviewed. Currently sitting up OOB to chair, alert, responsive and appropriate. Had a brief (?15 seconds?) episode of "absence" after coughing yesterday morning while Dr Calvert and I were in his room. Patient drooped to his left side and a right hand tremor was noted. The patient returned to his normal state and commented that he has seen neurologists in the past and had one such episode after coughing in the neurologists office. Several minutes later he had another "event" and the house physicians were called. The patient was supine in bed and again quickly recovered. See computer notes. Hospitalist exam, viewed by me, revealed no persistent focal neurologic deficit. Telemetry and EKG reviewed, revealing new T wave inversions laterally. Labs, radiologic procedures and progress notes reviewed. Case discussed with Dr Calvert in regard to ECHO findings in light of clinical presentation and need for cardiac catheterization, which may be performed tomorrow Selected Entries 07/24/17 07/24/17 07/24/17 07:48 09:30 10:13 Temperature 98.2 F Pulse Rate 86 Respiratory 18 Rate Blood Pressure 121/73 O2 Sat by Pulse 96 Oximetry (%) Oxygen Delivery Nasal Cannula Method Oxygen Flow 3 Rate Weight 174 lb 8 oz Laboratory Tests 07/23/17 07/24/17 07/24/17 06:30 07:40 07:40 WBC 5.1 Hgb 11.2 L Hct 35.7 Plt Count 191 Sodium 141 Potassium 3.6 Chloride 99 Carbon Dioxide 37 H BUN 15 Creatinine 0.7 Random Glucose 86 Calcium 8.6 Magnesium 2.1 Total Bilirubin 0.5 D AST 9 L D ALT 11 L Alkaline Phosphatase 98 D Total Protein 6.3 L Albumin 2.8 L TSH 0.64 D Chest Clear with decreased BS at bases No wheeze or rhonchi Cor Irregular Ectopics Telemetry Sinus with PVCs Occasional couplets Abd Soft Non-tender Ext Mild peripheral edema Neuro No new focal deficit Brief events as described above None today Assessment and Plan CHF Global hypokinesis on ECHO Consider Cardiac Cath ASHD EKG changes noted TAA Spinal discitis with abscess MSSA bacteremia Cholecystectomy H/O Syncope Dysrhythmia PAF PVCs Anemia Stable Increased RVSP Right heart cath COPD Chronic cough May require short course of corticosteroids if no improvement Possible cough-syncope variant with brief episode noted above Neuro assessment appreciated On anti-seizure Rx No residual neuro deficit. Continue current Rx
--- NOTE | 2017-07-24 13:02 | PN ---
Progress Note (short form) - Note Progress Note: 77 year old male history of CHF, HTN , ATRIAL FIBRILLATION, S/P cholecystectomy recently , back pain . Patient is on keppra 500 mg po bid and lyrica 50 mg po tid ( trigeminal neuralgia and back pain) and he had episode of low heart rate ( 30s) and bp dropped and he become unresponsive for few seconds and his right hand was shaking. There was no tongue bite or post ictal confusion. Previously his mri of brain and eeg were normal. Pateint had previous episode quite similar when he would have syncopal episodes. - Past Medical History Cardio/Vascular: Yes: AFIB, HTN Pulmonary: Yes: COPD Gastrointestinal: Yes: Other (history of choledocholithiasis s/p ERCP with Dr. 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 5) Musculoskeletal: Yes: Chronic low back pain, Other (sciatica right side) - Past Surgical History Past Surgical History: Yes: Hernia Repair (RIH), Tonsillectomy CC possible episode of syncope and shaking today HPI 77 year old male history of CHF, HTN , ATRIAL FIBRILLATION, S/P cholecystectomy recently , back pain . Patient is on keppra 500 mg po bid and lyrica 50 mg po tid ( trigeminal neuralgia and back pain) and he had episode of low heart rate ( 30s) and bp dropped and he become unresponsive for few seconds and his right hand was shaking. There was no tongue bite or post ictal confusion. Previously his mri of brain and eeg were normal. Pateint had previous episode quite similar when he would have syncopal episodes. Past Medical History as above and ROS reviwed in chart Neurological Examination Alert oriented x 3 CN all intact, eomi and no facial asymmetry Motor moving all extremity reflex are diminished sensation is normal Assessment on July 23 , he has Episode of passing out with shaking, it appear to be syncope episode secondary to cardiac cause, shaking has been reported in cases of syncope. As there was no tongue bite , incontinence or post ictal confusion, This episode unlikley to be brekathrough seizure, Patient is on two AED . Plan -- no need for brain imaging at this time, as he came back to baseline and there is no focal neurological symptoms - eeg tomorrow and continue same AED FOR NOW - Thanking you so much Fabian Duffy MD
[2017-07-24] MEDS: PATIENT'S OWN MEDICATION (NON-FORMULARY) (Diclofenac Sodium [Voltaren] 100 GM) TP SCH (19:42)
[2017-07-24] MEDS: MONTELUKAST NA 10 MG TABLET PO SCH (21:29)
[2017-07-24] MEDS: MELATONIN 1 MG TABLET PO SCH (21:29)
[2017-07-25] MEDS: PREGABALIN 50 MG CAPSULE PO SCH (05:42)
[2017-07-25] MEDS: DOCUSATE SODIUM 100 MG CAPSULE (FP) PO SCH (05:42)
[2017-07-25 08:11] LABS: ANION GAP 6 (8-16); CALCIUM 8.7 mg/dL (8.5-10.1); CO2 39 mmol/L (21-32); GLUCOSE,RANDOM 88 mg/dL (74-106)
[2017-07-25 08:13] LABS: CREATININE 0.6 mg/dL (0.7-1.3)
[2017-07-25] MEDS: FERROUS SO4 325 MG TABLET (FP) PO SCH (08:40)
[2017-07-25 08:43] VITALS: TEMP 97.4
[2017-07-25] MEDS ORDERED: PT OWN MED DRAWER 7, Y5N ONE (09:27)
[2017-07-25] MEDS: DULoxetine HCL 30 MG CAPSULE.DR (FP) PO SCH (09:34)
[2017-07-25] MEDS: FOLIC ACID 1 MG TABLET (FP) PO SCH (09:34)
[2017-07-25] MEDS: ASCORBIC ACID 500 MG TABLET (FP) PO SCH (09:34)
[2017-07-25] MEDS: VALSARTAN 80 MG TABLET (UD) PO SCH (09:34)
[2017-07-25] MEDS: MAGNESIUM OXIDE 400 MG TABLET (FP) PO SCH (09:34)
[2017-07-25] MEDS: levETIRAcetam 500 MG TABLET (FP) PO SCH (09:34)
[2017-07-25] MEDS: LACTOBACILLUS ACIDOPHILUS 1 EACH TAB (FP) PO SCH (09:34)
[2017-07-25] MEDS: SPIRONOLACTONE 25 MG TABLET (FP) PO SCH (09:35)
[2017-07-25] MEDS: CARVEDILOL 6.25 MG TABLET (FP) PO SCH (09:35)
[2017-07-25] MEDS: PANTOPRAZOLE 20 MG TABLET (FP) PO SCH (09:35)
[2017-07-25] MEDS: FLUTICASONE/SALMETEROL 100 MCG/50 MCG DISKUS IH SCH (09:35)
[2017-07-25] MEDS: SENNOSIDES 8.6MG TABLET (FP) PO SCH (09:39)
[2017-07-25 09:40] VITALS: BP 139/82; PULSE 98
--- NOTE | 2017-07-25 10:19 | PN ---
Progress Note (short form) - Note Progress Note: Neurology Progress Note (short form) - Note Progress Note: 77 year old male history of CHF, HTN , ATRIAL FIBRILLATION, S/P cholecystectomy recently , back pain . Patient is on keppra 500 mg po bid and lyrica 50 mg po tid ( trigeminal neuralgia and back pain) from before and seen by Dr. Chou over the weekend. He had episode of low heart rate ( 30s) and bp dropped and he become unresponsive for few seconds and his right hand was shaking. There was no tongue bite or post ictal confusion. Previously his mri of brain and eeg were normal. Pateint had previous episode quite similar when he would have syncopal episodes. This time also thought to be convulsive syncope, scheduled for EEG this morning. Neurologically stable over the weekend. Active Medications Acetaminophen (Tylenol -) 650 mg PO Q4H PRN PRN Reason: PAIN Albuterol/Ipratropium (Duoneb -) 1 amp NEB Q4H PRN PRN Reason: SHORTNESS OF BREATH Last Admin: 07/24/17 06:30 Dose: 1 amp Ascorbic Acid (Vitamin C -) 500 mg PO DAILY [facility] Last Admin: 07/25/17 09:34 Dose: 500 mg Carvedilol (Coreg -) 6.25 mg PO BID [facility] Last Admin: 07/25/17 09:35 Dose: 6.25 mg Docusate Sodium (Colace -) 100 mg PO TID [facility] Last Admin: 07/25/17 05:42 Dose: 100 mg Duloxetine HCl (Cymbalta -) 30 mg PO DAILY [facility] Last Admin: 07/25/17 09:34 Dose: 30 mg Ferrous Sulfate (Feosol -) 325 mg PO BIDWM [facility] Last Admin: 07/25/17 08:40 Dose: 325 mg Folic Acid (Folic Acid -) 1 mg PO DAILY [facility] Last Admin: 07/25/17 09:34 Dose: 1 mg Furosemide (Lasix Injection -) 40 mg IVPUSH DAILY [facility] Last Admin: 07/24/17 09:33 Dose: 40 mg Lactobacillus Acidophilus (Bacid -) 1 tab PO DAILY [facility] Last Admin: 07/25/17 09:34 Dose: 1 tab Levetiracetam (Keppra -) 500 mg PO BID [facility] Last Admin: 07/25/17 09:34 Dose: 500 mg Magnesium Oxide (Mag-Ox -) 400 mg PO BID [facility] Last Admin: 07/25/17 09:34 Dose: 400 mg Melatonin (Melatonin) 3 mg PO HS [facility] Last Admin: 07/24/17 21:29 Dose: 3 mg Montelukast Sodium (Singulair -) 10 mg PO HS [facility] Last Admin: 07/24/17 21:29 Dose: 10 mg Pantoprazole Sodium (Protonix -) 20 mg PO DAILY [facility] Last Admin: 07/25/17 09:35 Dose: 20 mg Polyethylene Glycol (Miralax (For Daily Use) -) 17 gm PO DAILY PRN PRN Reason: CONSTIPATION Pregabalin (Lyrica -) 50 mg PO TID [facility] Last Admin: 07/25/17 05:42 Dose: 50 mg Fluticasone/Salmeterol (Advair 100mcg/50mcg -) 1 puff IH BID [facility] Last Admin: 07/25/17 09:35 Dose: 1 puff Senna (Senna -) 2 tab PO BID [facility] Last Admin: 07/25/17 09:39 Dose: Not Given Spironolactone (Aldactone -) 25 mg PO DAILY [facility] Last Admin: 07/25/17 09:35 Dose: 25 mg Valsartan (Diovan -) 80 mg PO DAILY [facility] Last Admin: 07/25/17 09:34 Dose: 80 mg Vital Signs Period Temp Pulse Resp BP Sys/Cat Pulse Ox Last 24 Hr 97.4 F-98.1 F 71-98 17-20 104-147/65-94 98 Neurological Examination Alert oriented x 3 CN all intact, eomi and no facial asymmetry Motor moving all extremity reflex are diminished sensation is normal CBCD WBC 5.1 K/mm3 (4.0-10.0) 07/24/17 07:40 RBC 3.83 M/mm3 (4.00-5.60) L 07/24/17 07:40 Hgb 11.2 GM/dL (11.7-16.9) L 07/24/17 07:40 Hct 35.7 % (35.4-49) 07/24/17 07:40 MCV 93.3 fl (80-96) 07/24/17 07:40 MCHC 31.5 g/dl (32.0-35.9) L 07/24/17 07:40 RDW 19.6 % (11.9-15.9) H 07/24/17 07:40 Plt Count 191 K/MM3 (134-434) 07/24/17 07:40 MPV 8.9 fl (7.5-11.1) 07/24/17 07:40 CMP Sodium 143 mmol/L (136-145) 07/25/17 05:35 Potassium 3.6 mmol/L (3.5-5.1) 07/25/17 05:35 Chloride 98 mmol/L (98-107) 07/25/17 05:35 Carbon Dioxide 39 mmol/L (21-32) H 07/25/17 05:35 Anion Gap 6 (8-16) L 07/25/17 05:35 BUN 14 mg/dL (7-18) 07/25/17 05:35 Creatinine 0.6 mg/dL (0.7-1.3) L 07/25/17 05:35 Creat Clearance w eGFR > 60 (>60) 07/24/17 07:40 Calcium 8.7 mg/dL (8.5-10.1) 07/25/17 05:35 Total Bilirubin 0.5 mg/dL (0.2-1.0) D 07/24/17 07:40 AST 9 U/L (15-37) L D 07/24/17 07:40 ALT 11 U/L (12-78) L 07/24/17 07:40 Alkaline Phosphatase 98 U/L (45-117) D 07/24/17 07:40 Total Protein 6.3 g/dl (6.4-8.2) L 07/24/17 07:40 Albumin 2.8 g/dl (3.4-5.0) L 07/24/17 07:40 Awaiting EEG this morning Continue Keppra and Lyrica Episode likely convulsive syncope Trigeminal neuralgia stable Neurologically stable for transfer for cath
--- NOTE | 2017-07-25 11:28 | DS ---
Physical Examination Vital Signs: Vital Signs Temperature 36.3 C L 07/25/17 09:39 Pulse Rate 98 H 07/25/17 09:39 Respiratory Rate 20 07/25/17 09:39 Blood Pressure 139/82 07/25/17 09:39 O2 Sat by Pulse Oximetry (%) 98 07/24/17 21:00 Constitutional: Yes: Well Nourished, No Distress, Calm Cardiovascular: Yes: Regular Rate and Rhythm. No: Gallop, Murmur, Rub Respiratory: Yes: Regular, CTA Bilaterally. No: Rales, Rhonchi, Wheezes Gastrointestinal: Yes: Normal Bowel Sounds, Soft. No: Distention, Tenderness Extremities: Yes: WNL Edema: No Labs: CBC, BMP 07/24/17 07:40 07/25/17 05:35 Discharge Summary Reason For Visit: CONGESTIVE HEART FAILURE (CHF) Current Active Problems Acute on chronic systolic (congestive) heart failure (Acute) Acute respiratory failure with hypoxia (Acute) CHF (congestive heart failure) (Acute) Hypertensive cardiomyopathy (Acute) Paroxysmal atrial fibrillation (Acute) Pleural effusion due to CHF (congestive heart failure) (Acute) Trigeminal neuralgia (Acute) Hospital Course: (1) CHF (congestive heart failure) Code(s): I50.9 - HEART FAILURE, UNSPECIFIED Qualifiers: Congestive heart failure type: unspecified congestive heart failure type Congestive heart failure chronicity: acute Qualified Code(s): I50.9 - Heart failure, unspecified; I50.9 - Heart failure, unspecified; I50.9 - Heart failure, unspecified; I50.9 - Heart failure, unspecified (2) Atrial fibrillation Code(s): I48.91 - UNSPECIFIED ATRIAL FIBRILLATION Qualifiers: Atrial fibrillation type: paroxysmal Qualified Code(s): I48.0 - Paroxysmal atrial fibrillation; I48.0 - Paroxysmal atrial fibrillation; I48.0 - Paroxysmal atrial fibrillation; I48.0 - Paroxysmal atrial fibrillation (3) COPD (chronic obstructive pulmonary disease) Code(s): J44.9 - CHRONIC OBSTRUCTIVE PULMONARY DISEASE, UNSPECIFIED Qualifiers : COPD type: unspecified COPD Qualified Code(s): J44.9 - Chronic obstructive pulmonary disease, unspecified; J44.9 - Chronic obstructive pulmonary disease, unspecified; J44.9 - Chronic obstructive pulmonary disease, unspecified; J44.9 - Chronic obstructive pulmonary disease, unspecified (4) HTN (hypertension) Code(s): I10 - ESSENTIAL (PRIMARY) HYPERTENSION Qualifiers: Hypertension type: essential hypertension Qualified Code(s): I10 - Essential (primary) hypertension; I10 - Essential (primary) hypertension; I10 - Essential (primary) hypertension (5) Seizure Code(s): R56.9 - UNSPECIFIED CONVULSIONS (6) Trigeminal neuralgia Code(s): G50.0 - TRIGEMINAL NEURALGIA Mr Santacruz is a very pleasant 77 year old male who comes in with new onset CHF. He was admitted to the hospital and started on IV lasix. ECHO was repeated and showed worsening from last admission, now with acute LV systolic dysfunction. He was seen by cardiology and medications were adjusted. His metoprolol was changed to coreg and he was started on aldactone and diovan. He was continued on IV lasix through the hospital stay and will defer to cardiology to transition him to oral lasix on discharge. He also had a witnessed syncopal episode during a coughing spell, he was seen by neurology and felt that this was not seizure. However EEG performed and awaiting read, however this should not delay transfer for cardiac catheterization. He is currently stable for transfer for cardiac cath. 32 minutes spent in preparation of this discharge Condition: Good - Instructions Diet, Activity, Other Instructions: patient transfer to cardiac catheterization, discharge instructions to be given at other hospital Referrals: Josh Galeano MD [Primary Care Provider] - Jaquan Calvert MD [Staff Physician] - Livan Alfonso MD [Staff Physician] - Disposition: TRANSFER ACUTE CARE/OTHER HOSP - Home Medications Comprehensive Discharge Medication List: Ambulatory Orders Acetaminophen [Tylenol] 650 mg PO Q4H PRN 05/16/17 Ascorbate Calcium [Vitamin C] 500 mg PO DAILY 05/16/17 Bisacodyl [Dulcolax] 10 mg RC HS 05/16/17 Diclofenac Sodium [Voltaren] 100 gm TP BID 05/16/17 Docusate Sodium [Colace -] 100 mg PO TID 05/16/17 Duloxetine HCl [Cymbalta -] 30 mg PO DAILY 05/16/17 Folic Acid 1 mg PO DAILY 05/16/17 Guaifenesin Dm [Robitussin Dm -] 5 ml PO Q4H PRN 05/16/17 Ipratropium/Albuterol Sulfate [Iprat-Albut 0.5-3(2.5) mg/3 ml] 3 ml IH Q4H PRN 05/16/17 Lactobacillus Acidophilus [Bacid -] 1 each PO DAILY 05/16/17 Mag Hydrox/Al Hydrox/Simeth [Mylanta Oral Suspension -] 30 ml PO Q4H PRN Magnesium Oxide [Mag-Ox -] 400 ml PO BID 05/16/17 Melatonin 3 mg PO HS 05/16/17 Montelukast Na [Singulair -] 10 mg PO HS 05/16/17 Omeprazole 20 mg PO DAILY 05/16/17 Polyethylene Glycol 3350 [Miralax 119 gm Btl -] 17 gm PO DAILY PRN 05/16/17 Pregabalin [Lyrica -] 50 mg PO Q8H 05/16/17 Salmeterol/Fluticasone [Advair 100Mcg/50Mcg -] 1 inh PO BID 05/16/17 Sennosides [Senna] 2 tab PO BID 05/16/17 Apixaban [Eliquis -] 5 mg PO BID tablet 05/20/17 Ferrous Sulfate [Feosol] 325 mg PO BIDWM tablet 05/20/17 Oxycodone HCl [Roxicodone -] 5 mg PO Q4H PRN #60 tablet MDD 4 05/20/17 Levetiracetam [Keppra -] 500 mg PO BID 05/30/17 Carvedilol [Coreg -] 6.25 mg PO BID tablet 07/25/17 Spironolactone [Aldactone -] 25 mg PO DAILY tablet 07/25/17 Valsartan [Diovan] 80 mg PO DAILY tablet 07/25/17
--- NOTE | 2017-07-25 11:44 | PN ---
Progress Note, Physician Chief Complaint: Events noted No further episode of syncope due to cough or bradycardia Denies chest pain, SOB or palpitations History of Present Illness: Patient was seen and examined. Awake and alert. Chart was reviewed Await transfer to [facility] for cardiac catheterization - Current Medication List Current Medications: Active Medications Acetaminophen (Tylenol -) 650 mg PO Q4H PRN PRN Reason: PAIN Albuterol/Ipratropium (Duoneb -) 1 amp NEB Q4H PRN PRN Reason: SHORTNESS OF BREATH Last Admin: 07/24/17 06:30 Dose: 1 amp Ascorbic Acid (Vitamin C -) 500 mg PO DAILY [facility] Last Admin: 07/25/17 09:34 Dose: 500 mg Carvedilol (Coreg -) 6.25 mg PO BID [facility] Last Admin: 07/25/17 09:35 Dose: 6.25 mg Docusate Sodium (Colace -) 100 mg PO TID [facility] Last Admin: 07/25/17 05:42 Dose: 100 mg Duloxetine HCl (Cymbalta -) 30 mg PO DAILY [facility] Last Admin: 07/25/17 09:34 Dose: 30 mg Ferrous Sulfate (Feosol -) 325 mg PO BIDWM [facility] Last Admin: 07/25/17 08:40 Dose: 325 mg Folic Acid (Folic Acid -) 1 mg PO DAILY [facility] Last Admin: 07/25/17 09:34 Dose: 1 mg Furosemide (Lasix Injection -) 40 mg IVPUSH DAILY [facility] Last Admin: 07/24/17 09:33 Dose: 40 mg Lactobacillus Acidophilus (Bacid -) 1 tab PO DAILY [facility] Last Admin: 07/25/17 09:34 Dose: 1 tab Levetiracetam (Keppra -) 500 mg PO BID [facility] Last Admin: 07/25/17 09:34 Dose: 500 mg Magnesium Oxide (Mag-Ox -) 400 mg PO BID [facility] Last Admin: 07/25/17 09:34 Dose: 400 mg Melatonin (Melatonin) 3 mg PO HS [facility] Last Admin: 07/24/17 21:29 Dose: 3 mg Montelukast Sodium (Singulair -) 10 mg PO HS [facility] Last Admin: 07/24/17 21:29 Dose: 10 mg Pantoprazole Sodium (Protonix -) 20 mg PO DAILY [facility] Last Admin: 07/25/17 09:35 Dose: 20 mg Polyethylene Glycol (Miralax (For Daily Use) -) 17 gm PO DAILY PRN PRN Reason: CONSTIPATION Pregabalin (Lyrica -) 50 mg PO TID [facility] Last Admin: 07/25/17 05:42 Dose: 50 mg Fluticasone/Salmeterol (Advair 100mcg/50mcg -) 1 puff IH BID [facility] Last Admin: 07/25/17 09:35 Dose: 1 puff Senna (Senna -) 2 tab PO BID [facility] Last Admin: 07/25/17 09:39 Dose: Not Given Spironolactone (Aldactone -) 25 mg PO DAILY [facility] Last Admin: 07/25/17 09:35 Dose: 25 mg Valsartan (Diovan -) 80 mg PO DAILY [facility] Last Admin: 07/25/17 09:34 Dose: 80 mg - Objective Vital Signs: Vital Signs Temperature 97.4 F L 07/25/17 09:39 Pulse Rate 98 H 07/25/17 09:39 Respiratory Rate 20 07/25/17 09:39 Blood Pressure 139/82 07/25/17 09:39 O2 Sat by Pulse Oximetry (%) 98 07/24/17 21:00 Neck: Yes: Supple Cardiovascular: Yes: Regular Rate and Rhythm, Murmur (Soft SM), S1, S2 Respiratory: Yes: Diminished Gastrointestinal: Yes: Normal Bowel Sounds, Soft. No: Tenderness Edema: No Additional Findings/Remarks: - Review of Systems Constitutional: denies: Chills, Fever Cardiovascular: (-) Chest Pain, denies: Palpitations, (-) Shortness of Breath Respiratory: (+) Cough, denies: Hemoptysis, Orthopnea, PND,(-) SOB, SOB on Exertion Gastrointestinal: denies: Abdominal Pain, Constipation, Diarrhea, Melena, Nausea , Rectal Bleeding, Vomiting Genitourinary: denies: Flank Pain, Hematuria Musculoskeletal: denies: Joint Pain Neurological: denies: Dizziness, Headache, Seizure, (+) Syncope Labs: CBC, BMP 07/24/17 07:40 07/25/17 05:35 Problem List - Problems (1) Acute on chronic systolic (congestive) heart failure Code(s): I50.23 - ACUTE ON CHRONIC SYSTOLIC (CONGESTIVE) HEART FAILURE (2) Acute respiratory failure with hypoxia Code(s): J96.01 - ACUTE RESPIRATORY FAILURE WITH HYPOXIA (3) Paroxysmal atrial fibrillation Code(s): I48.0 - PAROXYSMAL ATRIAL FIBRILLATION (4) Pleural effusion due to CHF (congestive heart failure) Code(s): I50.9 - HEART FAILURE, UNSPECIFIED (5) Cholecystitis with cholelithiasis Code(s): K80.10 - CALCULUS OF GALLBLADDER W CHRONIC CHOLECYST W/O OBSTRUCTION (6) Discitis Code(s): M46.40 - DISCITIS, UNSPECIFIED, SITE UNSPECIFIED (7) HTN (hypertension) Code(s): I10 - ESSENTIAL (PRIMARY) HYPERTENSION Qualifiers: Hypertension type: essential hypertension Qualified Code(s): I10 - Essential (primary) hypertension; I10 - Essential (primary) hypertension; I10 - Essential (primary) hypertension (8) S/P laparoscopic cholecystectomy Code(s): Z90.49 - ACQUIRED ABSENCE OF OTHER SPECIFIED PARTS OF DIGESTIVE TRACT (9) Syncope Code(s): R55 - SYNCOPE AND COLLAPSE Qualifiers: Syncope type: vasovagal syncope Qualified Code(s): R55 - Syncope and collapse; R55 - Syncope and collapse Assessment/Plan 1. Acute hypoxic respiratory failure referable to acute on chronic LV systolic failure with pleural effusions improving - worsened LV systolic dysfunction 2. PAF remains in sinus rhythm [id number] score of 3 3. History of post-tussive syncope 4. Post laparoscopic cholecystectomy - post surgically stable 5. Hypertension 6. History of discitis and paraspinal abscess and MSSA sepsis 7. COPD PLAN: 1. Diuretic (Furosemide) and Aldactone 25 qd with monitor renal function and electrolytes 2. Continue Carvedilol 6.25 bid with up-titration as tolerated 3. Continue Diovan 80 qd with uptitration as tolerated, eventual Entresto may be tried as outpatient 4. Eliquis is to be held, but to be restarted after cardiac catheterization 5. Recommend [facility] as outlined today Further plans are to follow Jaquan Calvert MD
[2017-07-25] MEDS: FUROSEMIDE 40 MG/4 ML INJECTABLE VIAL IVPUSH SCH (12:04)
--- NOTE | 2017-07-27 13:23 | EKG ---
Test Reason : Blood Pressure : / mmHG Vent. Rate : 078 BPM Atrial Rate : 078 BPM P-R Int : 170 ms QRS Dur : 096 ms QT Int : 434 ms P-R-T Axes : 021 -21 151 degrees QTc Int : 494 ms NORMAL SINUS RHYTHM MINIMAL VOLTAGE CRITERIA FOR LVH, MAY BE NORMAL VARIANT BORDERLINE PROLONGED QT INFERIOR INFARCT , AGE UNDETERMINED ABNORMAL ECG WHEN COMPARED WITH ECG OF 21-JUL-2017 13:58, Confirmed by JOHN LOPEZ, SHEY ([id number]) on 07/27/2017 1:23:28 PM Referred By: Confirmed By:SHEY LOPEZ MD
== END 2017-07-25 13:33 | disposition short-term general hospital (02) | DRG 291 ==
LOC: JER 11:07 → JERBED 14:14 → OBSVTOIN 15:26 → J4S 17:35
PROVIDERS: ADMIT Internal Medicine; ATTEND Internal Medicine
DX: I11.0 Hypertensive heart disease with heart failure (principal); J96.01 Acute respiratory failure with hypoxia; R78.81 Bacteremia; I50.23 Acute on chronic systolic (congestive) heart failure; J44.9 Chronic obstructive pulmonary disease, unspecified; I71.6 Thoracoabdominal aortic aneurysm, without rupture; I48.0 Paroxysmal atrial fibrillation; Z22.321 Carrier or suspected carrier of Methicillin susceptible Staphylococcus aureus; G50.0 Trigeminal neuralgia; R76.11 Nonspecific reaction to tuberculin skin test without active tuberculosis; M54.5 Low back pain; G89.29 Other chronic pain; I25.10 Atherosclerotic heart disease of native coronary artery without angina pectoris; R05 Cough; R55 Syncope and collapse
CPT/HCPCS: 36415; 71020-TC; 80048; 80053; 82550; 83605; 83735; 83880; 84100; 84443; 84484; 85025; 85027; 85610; 90688; 93005; 93010; 93306-TC; 94640; 95816; 99284-25; G0008; G0378

== ENCOUNTER 2018-12-05 16:15 | Inpatient (IN) | payer OTHER, BC ==
[2018-12-05] MEDS ORDERED: PANTOPRAZOLE SODIUM 40 MG VIAL IVPUSH ONE (16:56)
[2018-12-05] MEDS ORDERED: PANTOPRAZOLE SODIUM 40 MG VIAL ONE (17:01)
--- NOTE | 2018-12-05 17:02 | PDOC ---
History of Present Illness - General History Source: Patient Exam Limitations: No Limitations - History of Present Illness Initial Comments: 12/05/18 17:11 The patient is a 78 year old male, with a significant PMH of vasovagal syndrome , CAD, CHF, MN, HTN, HLD, COPD, osteomyelitis, gallbladder surgery, who presents to the emergency department for evaluation of several syncopal/ presyncopal episodes over the last week and dark, bloody stools since Tuesday. The patient states he experienced a syncopal episode last Tuesday where he went to [facility] for evaluation - he was treated there and a loop recorder was placed and discharged the next day. The patient notes several other episodes since then. His daughter reports that on Tuesday his blood pressure got very low, 60s/40s with no LOC. That night, the patient noticed very dark stools and traces of blood on the tissue, which have been present with each bowel movement since. He reports another episode of syncope last night when he was watching tv and did not seem like his normal vasovagal episodes. Patient has noticed increasing shortness of breath and fatigue over the last week with no cause. Patient's last colonoscopy ~9years ago. The patient denies chest pain. Denies fever, chills, nausea, vomit. Denies dysuria, frequency, urgency and hematuria. Allergies: aloe Past surgical history: quadruple bypass Social history: Social drinker (martinia and glass of wine a day), Denies tobacco and illicit drug use. PCP: Dr. Galeano GI: Dr. 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 Reyna <Arlin Arcos - Last Filed: 12/05/18 18:29> <Cortes Maria - Last Filed: 12/05/18 19:10> - General Chief Complaint: Rectal Bleed Stated Complaint: DARK STOOLS Time Seen by Provider: 12/05/18 16:22 Past History <Arlin Arcos - Last Filed: 12/05/18 18:29> - Past Medical History Anemia: Yes Asthma: Yes Cancer: No Cardiac Disorders: Yes (p. AFIB, THORACIC AORTIC ANEURYSM) CVA: No COPD: Yes CHF: Yes Dementia: No Diabetes: No GI Disorders: No HTN: Yes Hypercholesterolemia: Yes Liver Disease: No Seizures: No Thyroid Disease: No - Surgical History Abdominal Surgery: Yes (HERNIA) Cardiac Surgery: Yes (OPEN HEART SX) Cholecystectomy: Yes - Suicide/Smoking/Psychosocial Hx Smoking History: Never smoked Have you smoked in the past 12 months: No Information on smoking cessation initiated: No Hx Alcohol Use: (nightly) Drug/Substance Use Hx: No Substance Use Type: None Hx Substance Use Treatment: No <Cortes Maria - Last Filed: 12/05/18 19:10> - Past Medical History Allergies/Adverse Reactions: Allergies Allergy/AdvReac Type Severity Reaction Status Date / Time aloe Allergy Severe Rash Verified 12/05/18 16:18 aloe vera Allergy Severe Rash Verified 12/05/18 16:18 Home Medications: Ambulatory Orders Duloxetine HCl [Cymbalta -] 30 mg PO DAILY 05/16/17 Montelukast Na [Singulair -] 10 mg PO AM 05/16/17 Pregabalin [Lyrica -] 50 mg PO AM 05/16/17 Apixaban [Eliquis -] 5 mg PO BID tablet 05/20/17 Ferrous Sulfate [Feosol] 325 mg PO BIDWM tablet 05/20/17 levETIRAcetam [Keppra -] 500 mg PO BID 05/30/17 Carvedilol [Coreg -] 6.25 mg PO BID tablet 07/25/17 Spironolactone [Aldactone -] 25 mg PO DAILY tablet 07/25/17 Valsartan [Diovan] 80 mg PO DAILY tablet 07/25/17 Aspirin [Aspirin EC] 81 mg PO DAILY 12/05/18 Atorvastatin Ca [Lipitor] 80 mg PO HS 12/05/18 Duloxetine HCl 30 mg PO AM 12/05/18 Review of Systems - Review of Systems Constitutional: No: Chills, Fever, Night Sweats HEENTM: No: Recent change in vision, Double Vision Respiratory: Yes: SOB with Exertion. No: Cough Cardiac (ROS): Yes: Syncope. No: Chest Pain, Edema ABD/GI: Yes: See HPI. No: Vomiting Neurological: No: Headache All Other Systems: Reviewed and Negative <Cortes Maria - Last Filed: 12/05/18 19:10> *Physical Exam - Vital Signs Last Vital Signs Temp Pulse Resp BP Pulse Ox 97.7 F 97 H 20 145/84 96 12/05/18 16:15 12/05/18 16:15 12/05/18 16:15 12/05/18 16:15 12/05/18 16:15 - Physical Exam Comments: 12/05/18 18:29 GENERAL: The patient is awake, alert, and fully oriented, in no acute distress. EYES: Pupils equal, round and reactive to light, extraocular movements intact, sclera anicteric, conjunctiva clear with no pallor. ENT: Ears normal, nares patent, oropharynx clear without exudates. Moist mucous membranes. NECK: Normal range of motion, supple without lymphadenopathy, JVD, or masses. ABDOMEN: (+)dark brown/black stool on rectal exam. Soft/nontender/nondistended. BS wnl. No guarding or rebound. No palpable masses. No hepatosplenomegaly. EXTREMITIES: Normal range of motion, no edema. No clubbing or cyanosis. No cords, erythema, or tenderness. NEUROLOGICAL: Cranial nerves II through XII grossly intact. Normal speech. PSYCH: Normal mood, normal affect. SKIN: (+)healed midline sternotomy scar. Warm, Dry, normal turgor, no rashes or lesions noted. <Arlin Arcos - Last Filed: 12/05/18 18:29> - Vital Signs Last Vital Signs Temp Pulse Resp BP Pulse Ox 97.7 F 97 H 20 145/84 96 12/05/18 16:15 12/05/18 16:15 12/05/18 16:15 12/05/18 16:15 12/05/18 16:15 <Cortes Maria - Last Filed: 12/05/18 19:10> Moderate Sedation - Procedure Monitoring Vital Signs: Procedure Monitoring Vital Signs Temperature 97.7 F 12/05/18 16:15 Pulse Rate 97 H 12/05/18 16:15 Respiratory Rate 20 12/05/18 16:15 Blood Pressure 145/84 12/05/18 16:15 O2 Sat by Pulse Oximetry (%) 96 12/05/18 16:15 <Arlin Arcos - Last Filed: 12/05/18 18:29> - Procedure Monitoring Vital Signs: Procedure Monitoring Vital Signs Temperature 97.7 F 12/05/18 16:15 Pulse Rate 97 H 12/05/18 16:15 Respiratory Rate 20 12/05/18 16:15 Blood Pressure 145/84 12/05/18 16:15 O2 Sat by Pulse Oximetry (%) 96 12/05/18 16:15 <Cortes Maria - Last Filed: 12/05/18 19:10> Heart Score/ECG Review #1 ECG reviewed & interpreted by me at: 17:13 General ECG Interpretation: Sinus Rhythm, Normal Rate (90), Normal Intervals ( qtc 467, IRBBB qrs 98), No acute ischemic changes (TWI I/AVL) <Cortes Maria - Last Filed: 12/05/18 19:10> ED Treatment Course - LABORATORY CBC & Chemistry Diagram: 12/05/18 17:00 12/05/18 17:00 - ADDITIONAL ORDERS Additional order review: Laboratory Results 12/05/18 16:50 Stool Occult Blood Positive - Medications Given in the ED: ED Medications Discontinued Medications Generic Name Dose Route Start Last Admin Trade Name Harshalq PRN Reason Stop Dose Admin Pantoprazole Sodium 40 mg 12/05/18 16:56 12/05/18 17:08 Protonix Iv IVPUSH 12/05/18 16:57 40 mg ONCE ONE Administration <Arlin Arcos - Last Filed: 12/05/18 18:29> - LABORATORY CBC & Chemistry Diagram: 12/05/18 17:00 12/05/18 17:00 - RADIOLOGY Radiology Studies Ordered: Category Date Time Status CHEST X-RAY PORTABLE* [RAD] Stat Radiology 12/05/18 16:53 Ordered <Cortes Maria - Last Filed: 12/05/18 19:10> Medical Decision Making - Medical Decision Making 12/05/18 17:[address] Mcknight, Dr. Marcial covering, awaiting call back 12/05/18 18:[address] Marcial, awaiting call back. 12/05/18 18:[address] Miller, awaiting call back. <Arlin Arcos - Last Filed: 12/05/18 18:29> - Medical Decision Making 12/05/18 16:55 78y/o M h/o multiple medical problems including CAD s/p CABG x5, ? pafib on asa/ eliquis, h/o osteomyelitis c/b vasovagal syndrome and recurring syncope most recently admitted to [facility] last week where loop recorder was implanted, now p/w painless black tarry stool for 2 days and increasing PLATT over past 2-3 days. no chest pain, no vomiting, no f/c. no h/o GI bleed other than hemorrhoids, last egd/c-scope was about 9 years ago. He is followed by Dr. Mcknight. no excessive nsaid/etoh use. VSS, ambulating high functioning gentleman in nad, conversant no conj pallor/icterus heart regular, lungs clear abd soft/nt/nd. bs nl, guaiac with dark brown/black stool sent. no gross blood neuro nonfocal 78y/o M on anti-coagulation p/w melena for 2-3 days in setting of apparent exacerbation of his underlying syncope syndrome, ? new PLATT. HD stable with benign abdominal exam. On review of past imaging, egd/c-scope not available but CTAP does not comment on h/o diverticulosis. ? symptomatic anemia from new GI bleed, ? cardiac involvement. labs, t+s, trops ekg, cxr ppi will need admission. will involve PCP Dr. Galeano, Cards Dr. Reyna, GI Dr. Mcknight. 12/05/18 17:32 Hgb 9.0, down from last 11.2 on 07/24/17. Cr elevated from last baseline, currently 1.4. BUN seems disproportionately elevated, suggestive of presumed UGIB. Trop negative, lipase pending. stool guaiac positive. cxr on my prelim review shows no acute changes other than new cabg wires, implanted loop recorder. will need trending of cbc, started on ppi. Dr. Mcknight of GI consulted, Dr. Marcial covering. 12/05/18 18:50 pt prioritizes staying at [facility]. Dr. Miller covering GI and will see pt. confirmed last eliquis dose was tuesday morning, so likely for EGD in AM. Will see patient tonight. Dr. Reyna consulted at pt request. Accepted for inpatient tele by Dr. Enrique. <Cortes Maria - Last Filed: 12/05/18 19:10> *DC/Admit/Observation/Transfer - Attestations Scribe Attestion: 12/05/18 17:12 Documentation prepared by Arlin Arcos, acting as medical/surgery registered nurse for Cortes Maria MD. <Arlin Arcos - Last Filed: 12/05/18 18:29> - Discharge Dispostion Decision to Admit order: Yes <Cortes Maria - Last Filed: 12/05/18 19:10> Diagnosis at time of Disposition: Melena, Vasovagal syncope, Upper GI bleed CAD (coronary artery disease) Qualifiers: Coronary Disease-Associated Artery/Lesion type: unspecified vessel or lesion type [place] vs. transplanted heart: [place] heart Associated angina: angina presence unspecified Qualified Code(s): I25.10 - Atherosclerotic heart disease of [place] coronary artery without angina pectoris - Discharge Dispostion Condition at time of disposition: Stable - Referrals Referrals: Josh Galeano MD [Primary Care Provider] - - Patient Instructions - Post Discharge Activity
[2018-12-05 17:17] LABS: BASO % 0.4 % (0-2.0); EOS % 0.7 % (0-4.5); HEMATOCRIT 27.9 % (35.4-49); INR 1.52 (0.82-1.09); LYMPH % 7.9 % (8-40); MCH 30.7 pg (25.7-33.7); MCHC 32.2 g/dl (32.0-35.9); MEAN CELL VOLUME 95.5 fl (80-96); MEAN PLT VOLUME 8.4 fl (7.5-11.1); MONO % 7.5 % (3.8-10.2); NEUT % 83.5 % (42.8-82.8); PLATELET COUNT 244 K/MM3 (134-434); PROTHROMBIN TIME (PATIENT) 16.9 SEC (10.2-13.0); RBC 2.92 M/mm3 (4.00-5.60); RDW 14.2 % (11.9-15.9); WHITE BLOOD COUNT 8.9 K/mm3 (4.0-10.8)
[2018-12-05 17:24] LABS: ALBUMIN 3.9 g/dl (3.4-5.0); ALK PHOS 69 U/L (45-117); ANION GAP 10 MMOL/L (8-16); BILIRUBIN,TOTAL 0.6 mg/dl (0.2-1); BLOOD UREA NITROGEN 74 mg/dl (7-18); CALCIUM 8.9 mg/dl (8.5-10); CHLORIDE 102 mmol/L (98-107); CO2 22 mmol/L (21-32); CREATININE 1.4 mg/dl (0.55-1.3); GLUCOSE,RANDOM 146 mg/dl (74-106); POTASSIUM 4.4 mmol/L (3.5-5.1); SGOT/AST 20 U/L (15-37); SGPT/ALT 11 U/L (13-61); SODIUM 134 mmol/L (136-145); TOT PROT 6.6 g/dl (6.4-8.2)
[2018-12-05] MEDS ORDERED: SODIUM CHLORIDE 1,000 ML IV ONE (17:49)
--- NOTE | 2018-12-05 19:46 | HP ---
Admitting History and Physical - Primary Care Physician PCP: Josh Galeano - Admission Chief Complaint: Syncope, Rectal Bleed History of Present Illness: This is a 78 y/o man from home with a PMHx of: HTN, HLD, CAD, TX (2017), s/p CABG 4-Vessel, Ablation, Spinal Osteomyelitis, Recent admisison (11/28/18) [facility] for Syncope. Who presents to the ED with Syncopal episodes and rectal bleeding. Patient reports having several syncopal/presyncopal episodes over the last week and dark, bloody stools since Tuesday. The patient states he experienced a syncopal episode last Tuesday where he went to [facility] for evaluation - he was treated there and a loop recorder was placed and discharged the next day. The patient notes several other episodes since then. His daughter reports that on Tuesday his blood pressure got very low, 60s/40s with no LOC. That night, the patient noticed very dark stools and traces of blood on the tissue, which have been present with each bowel movement since. He reports another episode of syncope last night when he was watching tv and did not seem like his normal vasovagal episodes. Patient has noticed increasing shortness of breath and fatigue over the last week with no cause. Patient's last colonoscopy ~9years ago- had 1 polyp. Patient denies fever, chills, CP, palpitations, N/V, hematuria, dysuria. History Source: Patient, Family Member Limitations to Obtaining History: No Limitations - Past Medical History Cardiovascular: Yes: AFIB, HTN, Hyperlipdemia, [place] Pulmonary: Yes: COPD Gastrointestinal: Yes: Other (history of choledocholithiasis s/p ERCP with Dr. 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[employer] History of Recent Travel: No Home Medications - Allergies Allergies/Adverse Reactions: Allergies Allergy/AdvReac Type Severity Reaction Status Date / Time aloe Allergy Severe Rash Verified 12/05/18 16:18 aloe vera Allergy Severe Rash Verified 12/05/18 16:18 - Home Medications Home Medications: Ambulatory Orders Duloxetine HCl [Cymbalta -] 30 mg PO DAILY 05/16/17 Montelukast Na [Singulair -] 10 mg PO AM 05/16/17 Pregabalin [Lyrica -] 50 mg PO AM 05/16/17 Apixaban [Eliquis -] 5 mg PO BID tablet 05/20/17 Ferrous Sulfate [Feosol] 325 mg PO BIDWM tablet 05/20/17 levETIRAcetam [Keppra -] 500 mg PO BID 05/30/17 Carvedilol [Coreg -] 6.25 mg PO BID tablet 07/25/17 Spironolactone [Aldactone -] 25 mg PO DAILY tablet 07/25/17 Valsartan [Diovan] 80 mg PO DAILY tablet 07/25/17 Aspirin [Aspirin EC] 81 mg PO DAILY 12/05/18 Atorvastatin Ca [Lipitor] 80 mg PO HS 12/05/18 Duloxetine HCl 30 mg PO AM 12/05/18 Family Disease History - Family Disease History Family Disease History: Other: Father ( 44: CVA), Mother ( 93: old age) , Sister (2 sisters, healthy) Review of Systems - Review of Systems Constitutional: reports: Chills, Weakness Eyes: reports: No Symptoms HENT: reports: No Symptoms Neck: reports: No Symptoms Cardiovascular: reports: Shortness of Breath Respiratory: reports: SOB Gastrointestinal: reports: Melena, Rectal Bleeding Genitourinary: reports: No Symptoms Breasts: reports: No Symptoms Reported Musculoskeletal: reports: No Symptoms Integumentary: reports: No Symptoms Neurological: reports: Dizziness, Syncope, Weakness Endocrine: reports: No Symptoms Hematology/Lymphatic: reports: No Symptoms Psychiatric: reports: No Symptoms Pain Intensity: 0 Physical Examination Vital Signs: Vital Signs Temperature 97.7 F 12/05/18 16:15 Pulse Rate 89 12/05/18 19:28 Respiratory Rate 16 12/05/18 19:28 Blood Pressure 132/85 12/05/18 19:28 O2 Sat by Pulse Oximetry (%) 97 12/05/18 19:28 Constitutional: Yes: Well Nourished, No Distress, Calm Eyes: Yes: Conjunctiva Clear (pale), EOM Intact, PERRL HENT: Yes: WNL, Atraumatic, Normocephalic Neck: Yes: WNL, Supple, Trachea Midline Cardiovascular: Yes: Regular Rate and Rhythm, S1, S2 Respiratory: Yes: WNL, Regular, CTA Bilaterally Gastrointestinal: Yes: WNL, Normal Bowel Sounds, Soft, Abdomen, Obese, Rectal Bleeding ...Rectal Exam: Yes: Guaiac Positive, Sphincter Tone Normal Renal/: Yes: WNL Breast(s): Yes: WNL Musculoskeletal: Yes: WNL Extremities: Yes: WNL Edema: No Peripheral Pulses WNL: Yes Integumentary: Yes: WNL Neurological: Yes: WNL, Alert, Oriented, Cran Nerves II-XII Intact, Other (gait not observed) ...Motor Strength: WNL Psychiatric: Yes: WNL, Alert, Oriented Labs: CBC, BMP 12/05/18 17:00 12/05/18 17:00 Laboratory Results - last 24 hr 12/05/18 12/05/18 12/05/18 16:50 17:00 17:00 WBC 8.9 RBC 2.92 L Hgb 9.0 L Hct 27.9 L MCV 95.5 MCH 30.7 MCHC 32.2 RDW 14.2 Plt Count 244 MPV 8.4 Absolute Neuts (auto) 7.4 Neutrophils % 83.5 H Lymphocytes % 7.9 L Monocytes % 7.5 Eosinophils % 0.7 Basophils % 0.4 PT with INR 16.9 H INR 1.52 H Sodium Potassium Chloride Carbon Dioxide Anion Gap BUN Creatinine Creat Clearance w eGFR Random Glucose Calcium Total Bilirubin AST ALT Alkaline Phosphatase Creatine Kinase Creatine Kinase Index CK-MB (CK-2) Troponin I Total Protein Albumin Lipase Stool Occult Blood Positive Blood Type Antibody Screen 12/05/18 12/05/18 12/05/18 17:00 17:00 17:00 WBC RBC Hgb Hct MCV MCH MCHC RDW Plt Count MPV Absolute Neuts (auto) Neutrophils % Lymphocytes % Monocytes % Eosinophils % Basophils % PT with INR INR Sodium 134 L Potassium 4.4 Chloride 102 Carbon Dioxide 22 Anion Gap 10 BUN 74 H Creatinine 1.4 H Creat Clearance w eGFR 49.27 Random Glucose 146 H Calcium 8.9 Total Bilirubin 0.6 AST 20 ALT 11 L Alkaline Phosphatase 69 Creatine Kinase Creatine Kinase Index CK-MB (CK-2) Troponin I < 0.03 Total Protein 6.6 Albumin 3.9 Lipase Stool Occult Blood Blood Type A POSITIVE Antibody Screen Negative 12/05/18 12/05/18 17:00 17:00 WBC RBC Hgb Hct MCV MCH MCHC RDW Plt Count MPV Absolute Neuts (auto) Neutrophils % Lymphocytes % Monocytes % Eosinophils % Basophils % PT with INR INR Sodium Potassium Chloride Carbon Dioxide Anion Gap BUN Creatinine Creat Clearance w eGFR Random Glucose Calcium Total Bilirubin AST ALT Alkaline Phosphatase Creatine Kinase 189 Creatine Kinase Index 4.7 CK-MB (CK-2) 8.9 H Troponin I Total Protein Albumin Lipase 167 Stool Occult Blood Blood Type Antibody Screen Intake & Output 12/02/18 12/03/18 12/04/18 12/05/18 23:59 23:59 23:59 23:59 Weight 87.09 kg Imaging - Results Chest X-ray: Image Reviewed EKG: Image Reviewed Problem List - Problems (1) Syncope Assessment/Plan: Admit to Telemetry Cardiac monitoring Serial Enzymes negx1, will trend Appreciate Cardiology consult Patient reports having an Echo last week at [facility], will need to obtain records for review Fall Precautions Monitor CBC, BMP Code(s): R55 - SYNCOPE AND COLLAPSE Qualifiers: Syncope type: vasovagal syncope Qualified Code(s): R55 - Syncope and collapse (2) GI bleed Assessment/Plan: Cardiac monitoring Stool Occult + GI following pending EGD NPO IVF Monitor CBC Continue PPI Code(s): K92.2 - GASTROINTESTINAL HEMORRHAGE, UNSPECIFIED (3) Melena Assessment/Plan: See above Code(s): K92.1 - MELENA (4) CAD (coronary artery disease) Assessment/Plan: EKG- NSR with incomplete RBBB Continue Coreg, Valsartan, Lipitor Hold Asa secondary to GIB Code(s): I25.10 - ATHSCL HEART DISEASE OF [place] CORONARY ARTERY W/O ANG PCTRS Qualifiers: Coronary Disease-Associated Artery/Lesion type: unspecified vessel or lesion type [place] vs. transplanted heart: [place] heart Associated angina: angina presence unspecified Qualified Code(s): I25.10 - Atherosclerotic heart disease of [place] coronary artery without angina pectoris (5) Acute on chronic systolic (congestive) heart failure Assessment/Plan: stable Chest Xray reviewed Appreciate Cardiology consult Continue Spironolactone Strict INOs Daily weights Code(s): I50.23 - ACUTE ON CHRONIC SYSTOLIC (CONGESTIVE) HEART FAILURE (6) Atrial fibrillation Assessment/Plan: stable EKG- NSR with incomplete RBBB Continue BB [id number] 3 Hold Eliquis secondary to GIB Code(s): I48.91 - UNSPECIFIED ATRIAL FIBRILLATION Qualifiers: Atrial fibrillation type: paroxysmal Qualified Code(s): I48.0 - Paroxysmal atrial fibrillation (7) COPD (chronic obstructive pulmonary disease) Assessment/Plan: stable Continue O2 Duonebs Code(s): J44.9 - CHRONIC OBSTRUCTIVE PULMONARY DISEASE, UNSPECIFIED Qualifiers: COPD type: unspecified COPD Qualified Code(s): J44.9 - Chronic obstructive pulmonary disease, unspecified (8) HTN (hypertension) Assessment/Plan: stable Monitor BP Continue home meds Monitor renal function Code(s): I10 - ESSENTIAL (PRIMARY) HYPERTENSION Qualifiers: Hypertension type: essential hypertension Qualified Code(s): I10 - Essential (primary) hypertension (9) HLD (hyperlipidemia) Assessment/Plan: Continue Lipitor Monitor LFTs Code(s): E78.5 - HYPERLIPIDEMIA, UNSPECIFIED Assessment/Plan This is a 78 y/o man with a PMHx of: HTN, HLD, CAD, [place], s/p CABG 4-vessel, Spinal Osteomyelitis, recent admission for Syncope [facility] 11/28/17. Admitted to Telemetry for Syncope, GI Bleed for further evaluation of their emergent condition. Plan: See problem List FEN NS@100ml/hr Replete lytes prn NPO DVT ppx OOB SCDs Hold AC secondary to GIB Dispo: Requires Inpatient Care Visit type - Emergency Visit Emergency Visit: Yes ED Registration Date: 12/05/18 Care time: The patient presented to the Emergency Department on the above date and was hospitalized for further evaluation of their emergent condition. - New Patient This patient is new to me today: Yes Date on this admission: 12/05/18 - Critical Care Critical Care patient: No
[2018-12-05] MEDS ORDERED: SODIUM CHLORIDE NASAL SPRAY 44 ML BOTTLE NS PRN (19:53)
[2018-12-05] MEDS: ATORVASTATIN CA 80 MG TABLET (FP) PO SCH (22:00)
[2018-12-05] MEDS: CARVEDILOL 6.25 MG TABLET (FP) PO SCH (22:00)
[2018-12-05] MEDS: levETIRAcetam 500 MG TABLET (FP) PO SCH (22:00)
--- NOTE | 2018-12-05 22:06 | CONS ---
DATE OF CONSULTATION: DATE OF DICTATION: 12/05/2018 The patient is a 78-year-old man with a past medical history of vasovagal syndrome, CAD, bypass surgery, CHF, MS, hypertension, hyperlipidemia, COPD, osteomyelitis, gallbladder surgery, and ERCP in the past who presented to the hospital with complaints of several syncopal and presyncopal episodes over the past week along with dark stool over the past week. His last episode of syncope was Tuesday, at which time he went to [facility] and was treated with a loop recorder and discharged the following day. He has had several other episodes since then. He now presents to the hospital with another episode of syncope while at home and shortness of breath and fatigue. Last colonoscopy was 9 years ago. Patient currently states he is feeling better. Denies abdominal pain, nausea, vomiting, or hematemesis or gross hematochezia. PAST MEDICAL AND SURGICAL HISTORY: As listed in the HPI. ALLERGIES: ALOE. SOCIAL HISTORY: Drinks socially. Denies tobacco and illicit drug abuse. FAMILY HISTORY: No history of GI or gynecological malignancy. PHYSICAL EXAMINATION: Vital Signs: Temperature 97, respiratory rate 12, blood pressure 140/84, pulse rate 86, pulse oximetry 97%. General: No acute distress. HEENT: Anicteric sclerae. Cardiovascular: S1, S2. Regular rate and rhythm. Lungs: Bilaterally clear to auscultation. Abdomen: Soft and nontender. Extremities: No edema. LABORATORY: White blood cell count 8.9, hemoglobin 9, hematocrit 27, MCV of 95, platelet count 244, INR 1.5. Sodium 134, BUN 74, creatinine 1.4, glucose 146, AST 20, ALT 11, bilirubin 0.8, troponin is negative x1, lipase 167. Stool for occult blood is positive. Chest x-ray was done, but not resulted. HOME MEDICATIONS: Reviewed and include Cymbalta, Singulair, Lyrica, Eliquis last taken on Tuesday, iron, Keppra, Coreg, Aldactone, Diovan, aspirin, and Lipitor as well as duloxetine. IMPRESSION: Anemia. Episodes of melena, suspicious for peptic ulcer disease, telangiectasia in the setting of Eliquis anticoagulation therapy. There is no sign of an overt GI bleed at this time. He is hemodynamically stable. RECOMMENDATIONS: N.P.O., IV fluids, serial CBCs q.6 hours, keep hemoglobin above 9, hold Eliquis as well as aspirin. Will plan for diagnostic upper endoscopy tomorrow. Risks explained in detail including but not limited to perforation, bleeding, infection, and sedation. DO JIL SANCHEZ/[id number]
[2018-12-06 00:45] VITALS: BMI 28.7
[2018-12-06 07:59] LABS: BASO % 0.7 % (0-2.0); HEMOGLOBIN 7.8 GM/dl (11.7-16.9); MCH 31.2 pg (25.7-33.7); MCHC 32.5 g/dl (32.0-35.9); MEAN CELL VOLUME 96.2 fl (80-96); MEAN PLT VOLUME 8.3 fl (7.5-11.1); MONO % 13.3 % (3.8-10.2); PLATELET COUNT 190 K/MM3 (134-434); WHITE BLOOD COUNT 6.9 K/mm3 (4.0-10.8)
[2018-12-06 08:37] LABS: ALBUMIN 3.3 g/dl (3.4-5.0); ALK PHOS 60 U/L (45-117); ANION GAP 5 MMOL/L (8-16); BILIRUBIN,TOTAL 0.9 mg/dl (0.2-1); BLOOD UREA NITROGEN 61 mg/dl (7-18); CALCIUM 8.9 mg/dl (8.5-10); CHLORIDE 111 mmol/L (98-107); CO2 24 mmol/L (21-32); CREATININE 1.3 mg/dl (0.55-1.3); GLUCOSE,RANDOM 97 mg/dl (74-106); PHOSPHOROUS 3.9 mg/dl (2.5-4.9); POTASSIUM 4.2 mmol/L (3.5-5.1); SGOT/AST 18 U/L (15-37); SGPT/ALT 11 U/L (13-61); SODIUM 140 mmol/L (136-145); TOT PROT 5.9 g/dl (6.4-8.2)
--- NOTE | 2018-12-06 09:45 | PN ---
Physical Exam: SUBJECTIVE: Patient seen and examined at bedside. Has no complaints. Denies abdominal pain. +melena stool this afternoon OBJECTIVE: Vital Signs Period Temp Pulse Resp BP Sys/Cat Pulse Ox Last 24 Hr 97.6 F-98.0 F 78-97 16-20 107-145/56-85 95-97 GENERAL: The patient is awake, alert, and fully oriented LUNGS: Breath sounds equal, clear to auscultation bilaterally, no wheezes, no crackles, no accessory muscle use. HEART: Regular rate and rhythm, S1, S2 ABDOMEN: Soft, nontender, nondistended, normoactive bowel sounds, no guarding, no rebound tenderness EXTREMITIES: 2+ pulses, warm, well-perfused, no edema. NEUROLOGICAL: Cranial nerves II through XII grossly intact. Normal speech, gait not observed. SKIN: Warm, dry, normal turgor Laboratory Results - last 24 hr 12/05/18 12/05/18 12/05/18 16:50 17:00 17:00 WBC 8.9 RBC 2.92 L Hgb 9.0 L Hct 27.9 L MCV 95.5 MCH 30.7 MCHC 32.2 RDW 14.2 Plt Count 244 MPV 8.4 Absolute Neuts (auto) 7.4 Neutrophils % 83.5 H Lymphocytes % 7.9 L Monocytes % 7.5 Eosinophils % 0.7 Basophils % 0.4 PT with INR 16.9 H INR 1.52 H Sodium Potassium Chloride Carbon Dioxide Anion Gap BUN Creatinine Creat Clearance w eGFR Random Glucose Calcium Phosphorus Total Bilirubin AST ALT Alkaline Phosphatase Creatine Kinase Creatine Kinase Index CK-MB (CK-2) Troponin I Total Protein Albumin Lipase Stool Occult Blood Positive Blood Type Antibody Screen 12/05/18 12/05/18 12/05/18 17:00 17:00 17:00 WBC RBC Hgb Hct MCV MCH MCHC RDW Plt Count MPV Absolute Neuts (auto) Neutrophils % Lymphocytes % Monocytes % Eosinophils % Basophils % PT with INR INR Sodium 134 L Potassium 4.4 Chloride 102 Carbon Dioxide 22 Anion Gap 10 BUN 74 H Creatinine 1.4 H Creat Clearance w eGFR 49.27 Random Glucose 146 H Calcium 8.9 Phosphorus Total Bilirubin 0.6 AST 20 ALT 11 L Alkaline Phosphatase 69 Creatine Kinase Creatine Kinase Index CK-MB (CK-2) Troponin I < 0.03 Total Protein 6.6 Albumin 3.9 Lipase Stool Occult Blood Blood Type A POSITIVE Antibody Screen Negative 12/05/18 12/05/18 12/06/18 17:00 17:00 00:01 WBC RBC Hgb Hct MCV MCH MCHC RDW Plt Count MPV Absolute Neuts (auto) Neutrophils % Lymphocytes % Monocytes % Eosinophils % Basophils % PT with INR INR Sodium Potassium Chloride Carbon Dioxide Anion Gap BUN Creatinine Creat Clearance w eGFR Random Glucose Calcium Phosphorus Total Bilirubin AST ALT Alkaline Phosphatase Creatine Kinase 189 Creatine Kinase Index 4.7 CK-MB (CK-2) 8.9 H Troponin I 0.03 Total Protein Albumin Lipase 167 Stool Occult Blood Blood Type Antibody Screen 12/06/18 12/06/18 12/06/18 06:00 07:10 07:10 WBC 6.9 RBC 2.50 L Hgb 7.8 L Hct 24.0 L MCV 96.2 H MCH 31.2 MCHC 32.5 RDW 14.0 Plt Count 190 D MPV 8.3 Absolute Neuts (auto) 4.5 Neutrophils % 64.0 D Lymphocytes % 16.0 D Monocytes % 13.3 H Eosinophils % 6.0 H D Basophils % 0.7 PT with INR INR Sodium 140 Potassium 4.2 Chloride 111 H Carbon Dioxide 24 Anion Gap 5 L BUN 61 H Creatinine 1.3 Creat Clearance w eGFR 53.67 Random Glucose 97 Calcium 8.9 Phosphorus 3.9 Total Bilirubin 0.9 AST 18 ALT 11 L Alkaline Phosphatase 60 Creatine Kinase Creatine Kinase Index CK-MB (CK-2) Troponin I < 0.03 Total Protein 5.9 L Albumin 3.3 L Lipase Stool Occult Blood Blood Type Antibody Screen Active Medications Generic Name Dose Route Start Last Admin Trade Name Harshalq PRN Reason Stop Dose Admin Atorvastatin Calcium 80 mg 12/05/18 22:00 12/05/18 22:00 Lipitor - PO 80 mg HS DOMITILA Administration Carvedilol 6.25 mg 12/05/18 22:00 12/05/18 22:00 Coreg - PO 6.25 mg BID DOMITILA Administration Duloxetine HCl 30 mg 12/06/18 10:00 Cymbalta - PO DAILY DOMITILA Levetiracetam 500 mg 12/05/18 22:00 12/05/18 22:00 Keppra - PO 500 mg BID DOMITILA Administration Montelukast Sodium 10 mg 12/06/18 22:00 Singulair - PO HS DOMITILA Pantoprazole Sodium 40 mg 12/06/18 10:00 Protonix Iv IVPUSH DAILY [facility] Sodium Chloride 2 spray 12/05/18 19:53 [place] - NS Q8H PRN NASAL CONGESTION Spironolactone 25 mg 12/06/18 10:00 Aldactone - PO DAILY [facility] Valsartan 80 mg 12/06/18 12:00 Diovan - PO DAILY@1200 [facility] Assessment & Plan 78 year-old male with a PMH significanbt for HTN, HLD, CAD s/p CABG (2018), LIANNA closure with Atriclip (2018), paroxysmal afib on Eliquis, MSSA spinal osteomyelitis, and recurrent syncope. Admitted for acute blood loss anemia likely secondary to GI bleed. Acute blood loss anemia likely secondary to GI bleed in setting of ASA and Eliquis use --melena x 2 today, Hgb 9.0-->7.8 --underwent EGD earlier today with Dr. Miller, mild gastritis, no bleeding identified --transfuse 1U PRBC --maintain Hgb >8 --repeat cbc now --hold ASA and Eliquis --protonix Recurrent syncope --has been undergoing outpatient workup, suspect neurogenic, hypovolemic, vasovagal causes --ILR placed 11/28/18 at [facility] --telemetry monitoring Systolic and diastolic heart failure --08/28/2018 Echo: Normal LV size with normal thickness, moderate decreased LVEF 35-40%, grade II diastolic dysfunction with RWMA HK apical septum, basal anteroseptum, basal inferoseptal, mid anteroseptum and mid inferosepmptum, mild decreased RV fxn, mild LAE, mild-mod AR, mod MR --continue aldactone CAD s/p CABG Hypertension Hyperlipidemia --continue carvedilol, Lipitor, valsartan, aldactone --hold ASA Paroxysmal afib s/p Watchman's procedure --in sinus rhythm --[id number] post LIANNA occlusion with Atriclip (2018) --holding Eliquis MSSA spinal osteomyelitis --stable FEN Fluids: PO intake adequate Electrolytes: replete as indicated Nutrition: low sodium DVT prophylaxis: hold chemical prophylaxis due to bleeding; SCDs, oob, ambulation Dispo: continues to require inpatient care. Full code. Visit type - Emergency Visit Emergency Visit: Yes ED Registration Date: 12/05/18 Care time: The patient presented to the Emergency Department on the above date and was hospitalized for further evaluation of their emergent condition. - New Patient This patient is new to me today: Yes Date on this admission: 12/06/18 - Critical Care Critical Care patient: No
--- NOTE | 2018-12-06 10:03 | CON.CARD ---
Consult Consult Specialty:: Cardiology Referred by:: Hospitalist Medicine Reason for Consultation:: Ischemic cardiomyopathy, PAF - History of Present Illness Chief Complaint: Melena, syncope History of Present Illness: Patient is a 78 year old male h/o 4.1 cm TAA, HTN, HLD, CAD, AR (2016) , s/p CABG (MALONE->D1->LAD, SVG->OM2->OM1, SVG->PDA), LIANNA closure with Atriclip 11/15/2017, PAF on Eliquis, MSSA Spinal Osteomyelitis, ischemic cardiomyopathy, lap michell, last seen in office 10/03/2018 recent admission (11/28/18) [facility] for Syncope who presents to the ED with syncopal episodes, melena and rectal bleeding. Patient reports having several syncopal/presyncopal episodes over the last week and dark, bloody stools since Tuesday. The patient states he experienced a syncopal episode last Tuesday where he went to [facility] for evaluation - he was treated there and a loop recorder was placed and discharged the next day. The patient notes several other episodes since then. His daughter reports that on Tuesday his blood pressure got very low , 60s/40s with no LOC. That night, the patient noticed very dark stools and traces of blood on the tissue, which have been present with each bowel movement since. He reports another episode of syncope last night when he was watching tv and did not seem like his normal vasovagal episodes. Patient has noticed increasing shortness of breath and fatigue over the last week. Patient's last colonoscopy ~9years ago- had 1 polyp. Patient denies fever, chills, CP, palpitations, N/V, hematuria, dysuria. - History Source History Provided By: Patient Limitations to Obtaining History: No Limitations - Past Medical History Cardio/Vascular: Yes: AFIB, HTN, Hyperlipdemia, AR Pulmonary: Yes: COPD Gastrointestinal: Yes: Other (history of choledocholithiasis s/p ERCP with Dr. 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 [employer] History of Recent Travel: No Home Medications - Allergies Allergies/Adverse Reactions: Allergies Allergy/AdvReac Type Severity Reaction Status Date / Time aloe Allergy Severe Rash Verified 12/05/18 16:18 aloe vera Allergy Severe Rash Verified 12/05/18 16:18 - Home Medications Home Medications: Ambulatory Orders Duloxetine HCl [Cymbalta -] 30 mg PO DAILY 05/16/17 Montelukast Na [Singulair -] 10 mg PO AM 05/16/17 Pregabalin [Lyrica -] 50 mg PO AM 05/16/17 Apixaban [Eliquis -] 5 mg PO BID tablet 05/20/17 Ferrous Sulfate [Feosol] 325 mg PO BIDWM tablet 05/20/17 levETIRAcetam [Keppra -] 500 mg PO BID 05/30/17 Carvedilol [Coreg -] 6.25 mg PO BID tablet 07/25/17 Spironolactone [Aldactone -] 25 mg PO DAILY tablet 07/25/17 Valsartan [Diovan] 80 mg PO DAILY tablet 07/25/17 Aspirin [Aspirin EC] 81 mg PO DAILY 12/05/18 Atorvastatin Ca [Lipitor] 80 mg PO HS 12/05/18 Duloxetine HCl 30 mg PO AM 12/05/18 Family Disease History - Family Disease History Family Disease History: Other: Father ( 44: CVA), Mother ( 93: old age) , Sister (2 sisters, healthy) Review of Systems - Review of Systems Constitutional: reports: Lethargy, Weakness Gastrointestinal: reports: Melena Neurological: reports: Weakness Vital Signs: Vital Signs Temperature 97.7 F 12/06/18 06:59 Pulse Rate 91 H 12/06/18 06:59 Respiratory Rate 20 12/06/18 06:59 Blood Pressure 127/70 12/06/18 06:59 O2 Sat by Pulse Oximetry (%) 95 12/05/18 23:38 Constitutional: Yes: No Distress, Calm Neck: Yes: Supple Respiratory: Yes: Regular, CTA Bilaterally Gastrointestinal: Yes: Soft, Hypoactive Bowel Sounds Cardiovascular: Yes: Regular Rate and Rhythm JVD: No Carotid Bruit: No Heart Sounds: Yes: S1, S2 Murmur: Yes: Systolic Murmur, Grade 1 Edema: No - Other Data Labs, Other Data: CBC, BMP 12/06/18 07:10 12/06/18 07:10 INR, PTT INR 1.52 (0.82-1.09) H 12/05/18 17:00 Troponin, BNP 12/05/18 12/06/18 12/06/18 17:00 00:01 06:00 Troponin I < 0.03 0.03 < 0.03 Troponin, BNP 12/05/18 12/06/18 12/06/18 17:00 00:01 06:00 Troponin I < 0.03 0.03 < 0.03 NSR LVH Echo: Report Reviewed Prior Cardiac Procedures: CABG Ejection Fraction %: LVEF < 40 % Imaging - Results Chest X-ray: Report Reviewed (Alberto GALLEGOS) Problem List - Problems (1) Ischemic cardiomyopathy Code(s): I25.5 - ISCHEMIC CARDIOMYOPATHY (2) CAD (coronary artery disease) Code(s): I25.10 - ATHSCL HEART DISEASE OF [place] CORONARY ARTERY W/O ANG PCTRS Qualifiers: Coronary Disease-Associated Artery/Lesion type: [place] artery [place] vs. transplanted heart: [place] heart Associated angina: without angina Qualified Code(s): I25.10 - Atherosclerotic heart disease of [place] coronary artery without angina pectoris (3) HLD (hyperlipidemia) Code(s): E78.5 - HYPERLIPIDEMIA, UNSPECIFIED Qualifiers: Hyperlipidemia type: pure hypercholesterolemia Qualified Code(s): E78.00 - Pure hypercholesterolemia, unspecified; E78.0 - Pure hypercholesterolemia (4) Melena Code(s): K92.1 - MELENA (5) Upper GI bleed Code(s): K92.2 - GASTROINTESTINAL HEMORRHAGE, UNSPECIFIED (6) Vasovagal syncope Code(s): R55 - SYNCOPE AND COLLAPSE (7) Paroxysmal atrial fibrillation Code(s): I48.0 - PAROXYSMAL ATRIAL FIBRILLATION (8) Thoracic aortic aneurysm without rupture Code(s): I71.2 - THORACIC AORTIC ANEURYSM, WITHOUT RUPTURE (9) Chronic anticoagulation Code(s): Z79.01 - DETENTION (CURRENT) USE OF ANTICOAGULANTS Assessment/Plan 08/28/2018 Echo: Normal LV size with normal thickness, moderate decreased LVEF 35-40%, grade II diastolic dysfunction with RWMA HK apical septum, basal anteroseptum, basal inferoseptal, mid anteroseptum and mid inferosepmptum, mild decreased RV fxn, mild LAE, mild-mod AR, mod MR 1. Recurrent syncope h/o ILR suspect neurocardiogenic, vasaovagal, hypovolemic referable to 2. Anemia, melena, UGI bleed r/o PUD, AVM 3. CAD s/p CABG 4. Ischemic cardiomyopathy 5. PAF->SR [id number] post LIANNA occlusion with Atriclip 6. Hyperlipidemia 7. Labile hypertension 8. H/o discitis, paraspinal abscess and MSSA sepsis P:1. Hold ASA and Eliquis pending hemostasis and EGD for UGI bleed elucidation, continue PPI, transfuse to maintain Hgb>8.0 2. Given CABG last year and absence of symptoms of acute coronary syndrome, decompensated CHF or malignant arrhythmia, may proceed with EGD from CV- standpoint w/o further testing, ILR interrogation in office 3. Continue carvedilol 6.25 bid, Lipitor 80 qd, Diovan 80 qd and Aldactone 25 qd as hemodynamics tolerate 4. Thank you for consultative opportunity
--- NOTE | 2018-12-06 11:02 | EKG ---
Test Reason : Blood Pressure : / mmHG Vent. Rate : 090 BPM Atrial Rate : 090 BPM P-R Int : 166 ms QRS Dur : 098 ms QT Int : 382 ms P-R-T Axes : 033 -26 052 degrees QTc Int : 467 ms NORMAL SINUS RHYTHM INCOMPLETE RIGHT BUNDLE BRANCH BLOCK MODERATE VOLTAGE CRITERIA FOR LVH, MAY BE NORMAL VARIANT BORDERLINE ECG WHEN COMPARED WITH ECG OF 23-JUL-2017 11:07, CRITERIA FOR INFERIOR INFARCT ARE NO LONGER PRESENT NONSPECIFIC T WAVE ABNORMALITY NO LONGER EVIDENT IN INFERIOR LEADS T WAVE INVERSION NO LONGER EVIDENT IN ANTEROLATERAL LEADS Confirmed by JENNA LOPEZ, HEIDI ([id number]) on 12/06/2018 11:02:31 AM Referred By: Chay Enrique Confirmed By:HEIDI WEST MD
[2018-12-06] MEDS: PANTOPRAZOLE SODIUM 40 MG VIAL IVPUSH SCH (11:10)
[2018-12-06 11:55] LABS: BASO % 0.8 % (0-2.0); EOS % 6.2 % (0-4.5); HEMATOCRIT 24.5 % (35.4-49); HEMOGLOBIN 7.8 GM/dl (11.7-16.9); LYMPH % 14.8 % (8-40); MCH 30.5 pg (25.7-33.7); MCHC 31.6 g/dl (32.0-35.9); MEAN CELL VOLUME 96.6 fl (80-96); MEAN PLT VOLUME 7.9 fl (7.5-11.1); MONO % 12.4 % (3.8-10.2); NEUT % 65.8 % (42.8-82.8); PLATELET COUNT 211 K/MM3 (134-434); RBC 2.54 M/mm3 (4.00-5.60); RDW 14.1 % (11.9-15.9); WHITE BLOOD COUNT 7.1 K/mm3 (4.0-10.8)
[2018-12-06] MEDS ORDERED: VALSARTAN 80 MG TABLET (UD) PO SCH (12:00)
[2018-12-06] MEDS: DULoxetine HCL 30 MG CAPSULE.DR PO SCH (15:14)
[2018-12-06] MEDS: SPIRONOLACTONE 25 MG TABLET (FP) PO SCH (15:14)
[2018-12-06] MEDS: CARVEDILOL 6.25 MG TABLET (FP) PO SCH ×2 (15:15→21:23)
[2018-12-06] MEDS: levETIRAcetam 500 MG TABLET (FP) PO SCH ×2 (15:15→21:23)
[2018-12-06 17:06] LABS: HEMATOCRIT 25.5 % (35.4-49); MCH 30.3 pg (25.7-33.7); MCHC 31.2 g/dl (32.0-35.9); MEAN CELL VOLUME 96.9 fl (80-96); MEAN PLT VOLUME 7.7 fl (7.5-11.1); PLATELET COUNT 230 K/MM3 (134-434); RBC 2.63 M/mm3 (4.00-5.60); RDW 14.5 % (11.9-15.9); WHITE BLOOD COUNT 6.9 K/mm3 (4.0-10.8)
[2018-12-06] MEDS: FERROUS SO4 325 MG TABLET (FP) PO SCH (17:42)
[2018-12-06] MEDS: ATORVASTATIN CA 80 MG TABLET (FP) PO SCH (21:23)
[2018-12-06] MEDS ORDERED: MONTELUKAST NA 10 MG TABLET PO SCH (22:00)
[2018-12-07 05:36] VITALS: BP 120/65; PULSE 73; TEMP 98
[2018-12-07] MEDS: FERROUS SO4 325 MG TABLET (FP) PO SCH (08:05)
[2018-12-07 08:18] LABS: HEMATOCRIT 26.2 % (35.4-49); HEMOGLOBIN 8.5 GM/dl (11.7-16.9); MCH 30.7 pg (25.7-33.7); MCHC 32.6 g/dl (32.0-35.9); MEAN CELL VOLUME 94.3 fl (80-96); MEAN PLT VOLUME 8.5 fl (7.5-11.1); PLATELET COUNT 188 K/MM3 (134-434); RBC 2.78 M/mm3 (4.00-5.60); RDW 15.1 % (11.9-15.9); WHITE BLOOD COUNT 5.9 K/mm3 (4.0-10.8)
[2018-12-07 08:48] LABS: ALBUMIN 3.3 g/dl (3.4-5.0); ALK PHOS 66 U/L (45-117); ANION GAP 6 MMOL/L (8-16); BLOOD UREA NITROGEN 40 mg/dl (7-18); CALCIUM 8.7 mg/dl (8.5-10); CHLORIDE 109 mmol/L (98-107); CO2 24 mmol/L (21-32); CREATININE 1.1 mg/dl (0.55-1.3); GLUCOSE,RANDOM 95 mg/dl (74-106); MAGNESIUM 1.8 mg/dL (1.8-2.4); SGOT/AST 24 U/L (15-37); SGPT/ALT 13 U/L (13-61); SODIUM 139 mmol/L (136-145); TOT PROT 5.8 g/dl (6.4-8.2)
--- NOTE | 2018-12-07 09:47 | PN ---
Progress Note, Physician History of Present Illness: Melena resolving, Hgb stable, EGD shows mild erythematous gastropathy. - Current Medication List Current Medications: Active Medications Atorvastatin Calcium (Lipitor -) 80 mg PO HS [facility] Last Admin: 12/06/18 21:23 Dose: 80 mg Carvedilol (Coreg -) 6.25 mg PO BID [facility] Last Admin: 12/06/18 21:23 Dose: 6.25 mg Duloxetine HCl (Cymbalta -) 30 mg PO DAILY [facility] Last Admin: 12/06/18 15:14 Dose: 30 mg Ferrous Sulfate (Feosol -) 325 mg PO BIDWM [facility] Last Admin: 12/06/18 17:42 Dose: 325 mg Levetiracetam (Keppra -) 500 mg PO BID [facility] Last Admin: 12/06/18 21:23 Dose: 500 mg Montelukast Sodium (Singulair -) 10 mg PO HS [facility] Last Admin: 12/06/18 21:23 Dose: 10 mg Pantoprazole Sodium (Protonix Iv) 40 mg IVPUSH DAILY [facility] Last Admin: 12/06/18 11:10 Dose: 40 mg Pregabalin (Lyrica -) 50 mg PO DAILY [facility] Sodium Chloride ([place]al [place] -) 2 spray NS Q8H PRN PRN Reason: NASAL CONGESTION Spironolactone (Aldactone -) 25 mg PO DAILY [facility] Last Admin: 12/06/18 15:14 Dose: 25 mg Valsartan (Diovan -) 80 mg PO DAILY@1200 [facility] Last Admin: 12/06/18 15:14 Dose: 80 mg - Objective Vital Signs: Vital Signs Temperature 98.0 F 12/07/18 05:32 Pulse Rate 73 12/07/18 05:32 Respiratory Rate 18 12/07/18 05:32 Blood Pressure 120/65 12/07/18 05:32 O2 Sat by Pulse Oximetry (%) 96 12/06/18 20:08 Constitutional: Yes: No Distress, Calm Neck: Yes: Supple Cardiovascular: Yes: Regular Rate and Rhythm Respiratory: Yes: Regular, CTA Bilaterally Gastrointestinal: Yes: Normal Bowel Sounds, Soft Edema: No Labs: CBC, BMP 12/07/18 07:06 12/07/18 07:06 INR, PTT INR 1.52 (0.82-1.09) H 12/05/18 17:00 Problem List - Problems (1) Ischemic cardiomyopathy Code(s): I25.5 - ISCHEMIC CARDIOMYOPATHY (2) CAD (coronary artery disease) Code(s): I25.10 - ATHSCL HEART DISEASE OF [place] CORONARY ARTERY W/O ANG PCTRS Qualifiers: Coronary Disease-Associated Artery/Lesion type: [place] artery [place] vs. transplanted heart: [place] heart Associated angina: without angina Qualified Code(s): I25.10 - Atherosclerotic heart disease of [place] coronary artery without angina pectoris (3) HLD (hyperlipidemia) Code(s): E78.5 - HYPERLIPIDEMIA, UNSPECIFIED Qualifiers: Hyperlipidemia type: pure hypercholesterolemia Qualified Code(s): E78.00 - Pure hypercholesterolemia, unspecified; E78.0 - Pure hypercholesterolemia (4) Melena Code(s): K92.1 - MELENA (5) Vasovagal syncope Code(s): R55 - SYNCOPE AND COLLAPSE (6) Paroxysmal atrial fibrillation Code(s): I48.0 - PAROXYSMAL ATRIAL FIBRILLATION (7) Thoracic aortic aneurysm without rupture Code(s): I71.2 - THORACIC AORTIC ANEURYSM, WITHOUT RUPTURE (8) Chronic anticoagulation Code(s): Z79.01 - LONG-TERM (CURRENT) USE OF ANTICOAGULANTS (9) Erythematous gastropathy Code(s): K29.70 - GASTRITIS, UNSPECIFIED, WITHOUT BLEEDING Assessment/Plan 08/28/2018 Echo: Normal LV size with normal thickness, moderate decreased LVEF 35-40%, grade II diastolic dysfunction with RWMA HK apical septum, basal anteroseptum, basal inferoseptal, mid anteroseptum and mid inferosepmptum, mild decreased RV fxn, mild LAE, mild-mod AR, mod MR 1. Recurrent syncope h/o ILR suspect neurocardiogenic, vasaovagal, hypovolemic referable to 2. Anemia, melena, UGI bleed referable to mild erythematous gastropathy 3. CAD s/p CABG 4. Ischemic cardiomyopathy 5. PAF->SR [id number] post LIANNA occlusion with Atriclip 6. Hyperlipidemia 7. Labile hypertension 8. H/o discitis, paraspinal abscess and MSSA sepsis P:1. D/c ASA and resume Eliquis 5 bid with input from GI, oral PPI, transfuse to maintain Hgb>8.0, outpatient colonoscopy 2. Given CABG last year and absence of symptoms of acute coronary syndrome, decompensated CHF or malignant arrhythmia, may proceed with colonoscopy from CV- standpoint w/o further testing, ILR interrogation in office 3. Continue carvedilol 6.25 bid, Lipitor 80 qd, Diovan 80 qd and Aldactone 25 qd as hemodynamics tolerate
[2018-12-07] MEDS ORDERED: PREGABALIN 50 MG CAPSULE PO SCH (10:00)
[2018-12-07] MEDS: levETIRAcetam 500 MG TABLET (FP) PO SCH (10:39)
[2018-12-07] MEDS: SPIRONOLACTONE 25 MG TABLET (FP) PO SCH (10:39)
[2018-12-07] MEDS: CARVEDILOL 6.25 MG TABLET (FP) PO SCH (10:39)
[2018-12-07] MEDS: PANTOPRAZOLE SODIUM 40 MG VIAL IVPUSH SCH (10:39)
[2018-12-07] MEDS: DULoxetine HCL 30 MG CAPSULE.DR PO SCH (10:39)
--- NOTE | 2018-12-07 10:44 | DS ---
Physical Exam: SUBJECTIVE: Patient seen and examined OBJECTIVE: Vital Signs Period Temp Pulse Resp BP Sys/Cat Pulse Ox Last 24 Hr 98.0 F-98.8 F 73-85 16-19 120-154/65-85 96-98 PHYSICAL EXAM GENERAL: The patient is awake, alert, and fully oriented LUNGS: Breath sounds equal, clear to auscultation bilaterally, no wheezes, no crackles, no accessory muscle use. HEART: Regular rate and rhythm, S1, S2 ABDOMEN: Soft, nontender, nondistended, normoactive bowel sounds, no guarding, no rebound tenderness EXTREMITIES: 2+ pulses, warm, well-perfused, no edema. NEUROLOGICAL: Cranial nerves II through XII grossly intact. Normal speech, gait not observed. SKIN: Warm, dry, normal turgor LABS Laboratory Results - last 24 hr 12/05/18 12/06/18 12/06/18 17:00 11:45 16:45 WBC 7.1 6.9 RBC 2.54 L 2.63 L Hgb 7.8 L 8.0 L Hct 24.5 L 25.5 L MCV 96.6 H 96.9 H MCH 30.5 30.3 MCHC 31.6 L 31.2 L RDW 14.1 14.5 Plt Count 211 230 MPV 7.9 7.7 Absolute Neuts (auto) 4.6 Neutrophils % 65.8 Lymphocytes % 14.8 Monocytes % 12.4 H Eosinophils % 6.2 H Basophils % 0.8 Sodium Potassium Chloride Carbon Dioxide Anion Gap BUN Creatinine Creat Clearance w eGFR Random Glucose Calcium Magnesium Total Bilirubin AST ALT Alkaline Phosphatase Total Protein Albumin Blood Type A POSITIVE Antibody Screen Negative Crossmatch See Detail 12/07/18 12/07/18 07:06 07:06 WBC 5.9 RBC 2.78 L Hgb 8.5 L Hct 26.2 L MCV 94.3 MCH 30.7 MCHC 32.6 RDW 15.1 Plt Count 188 MPV 8.5 D Absolute Neuts (auto) Neutrophils % Lymphocytes % Monocytes % Eosinophils % Basophils % Sodium 139 Potassium 4.0 Chloride 109 H Carbon Dioxide 24 Anion Gap 6 L BUN 40 H Creatinine 1.1 Creat Clearance w eGFR 65.08 Random Glucose 95 Calcium 8.7 Magnesium 1.8 Total Bilirubin 1.0 AST 24 ALT 13 Alkaline Phosphatase 66 Total Protein 5.8 L Albumin 3.3 L Blood Type Antibody Screen Crossmatch HOSPITAL COURSE: Date of Admission:12/05/18 Date of Discharge: 12/07/18 78 year-old male with a PMH significant for HTN, HLD, CAD s/p CABG (2018), LIANNA closure with Atriclip (2018), paroxysmal afib on Eliquis, MSSA spinal osteomyelitis, and recurrent syncope. Admitted for acute blood loss anemia likely secondary to GI bleed. Acute blood loss anemia likely secondary to GI bleed in setting of ASA and Eliquis use --Hgb on admission 9.0 followed by several melanotic stools; hgb dropped 7.8 ; transfused 1U --?8.0-->8.5 --underwent EGD with Dr. Miller, mild gastritis, no bleeding identified --treated with protonix BID; ASA and Eliquis were held Recurrent syncope --has been undergoing outpatient workup, suspect neurogenic, hypovolemic, vasovagal causes --ILR placed 11/28/18 at [facility] --will continue to follow with primary cardiologists Systolic and diastolic heart failure --08/28/2018 Echo: Normal LV size with normal thickness, moderate decreased LVEF 35-40%, grade II diastolic dysfunction with RWMA HK apical septum, basal anteroseptum, basal inferoseptal, mid anteroseptum and mid inferosepmptum, mild decreased RV fxn, mild LAE, mild-mod AR, mod MR --continued aldactone CAD s/p CABG Hypertension Hyperlipidemia --continued carvedilol, Lipitor, valsartan, aldactone --due to GI bleed ASA was discontinued Paroxysmal afib s/p Watchman's procedure --in sinus rhythm --[id number] post LIANNA occlusion with Atriclip (2018) --Eliquis held during hospital stay; resumed on date of discharge MSSA spinal osteomyelitis --stable Minutes to complete discharge: 35 Discharge Summary Reason For Visit: VASOVAGAL SYNCOPE/UPPER GI HEMMORHAGE Current Active Problems CAD (coronary artery disease) (Acute) Chronic anticoagulation (Acute) Erythematous gastropathy (Acute) GI bleed (Acute) HLD (hyperlipidemia) (Acute) Ischemic cardiomyopathy (Acute) Melena (Acute) Upper GI bleed (Acute) Vasovagal syncope (Acute) Condition: Improved - Instructions Diet, Activity, Other Instructions: You should STOP taking aspirin. Referrals: Sobia Miller DO [Staff Physician] - Beto Lester MD [Staff Physician] - 1 Week Chay Reyna MD [Staff Physician] - 1 Week Disposition: HOME - Home Medications Comprehensive Discharge Medication List: Ambulatory Orders Duloxetine HCl [Cymbalta -] 30 mg PO DAILY 05/16/17 Montelukast Na [Singulair -] 10 mg PO AM 05/16/17 Pregabalin [Lyrica -] 50 mg PO AM 05/16/17 Apixaban [Eliquis -] 5 mg PO BID tablet 05/20/17 Ferrous Sulfate [Feosol] 325 mg PO BIDWM tablet 05/20/17 levETIRAcetam [Keppra -] 500 mg PO BID 05/30/17 Carvedilol [Coreg -] 6.25 mg PO BID tablet 07/25/17 Spironolactone [Aldactone -] 25 mg PO DAILY tablet 07/25/17 Valsartan [Diovan] 80 mg PO DAILY tablet 07/25/17 Atorvastatin Ca [Lipitor] 80 mg PO HS 12/05/18 Duloxetine HCl 30 mg PO AM 12/05/18 Carvedilol [Coreg -] 6.25 mg PO BID tablet 12/07/18 Pantoprazole Sodium [Protonix -] 40 mg PO DAILY #30 tablet.ec 12/07/18 This patient is new to me today: No Emergency Visit: Yes ED Registration Date: 12/05/18 Care time: The patient presented to the Emergency Department on the above date and was hospitalized for further evaluation of their emergent condition. Critical Care patient: No - Discharge Referral Referred to [facility] No
--- NOTE | 2018-12-07 12:17 | DS ---
Physical Exam: SUBJECTIVE: Patient seen and examined OBJECTIVE: Vital Signs Period Temp Pulse Resp BP Sys/Cat Pulse Ox Last 24 Hr 98.0 F-98.8 F 73-85 16-19 120-154/65-85 96-98 PHYSICAL EXAM GENERAL: The patient is awake, alert, and fully oriented, in no acute distress. HEAD: Normal with no signs of trauma. EYES: PERRL, extraocular movements intact, sclera anicteric, conjunctiva clear. ENT: Ears normal, nares patent, oropharynx clear without exudates, moist mucous membranes. NECK: Trachea midline, full range of motion, supple. LUNGS: Breath sounds equal, clear to auscultation bilaterally, no wheezes, no crackles, no accessory muscle use. HEART: Regular rate and rhythm, S1, S2 without murmur, rub or gallop. ABDOMEN: Soft, nontender, nondistended, normoactive bowel sounds, no guarding, no rebound, no hepatosplenomegaly, no masses. EXTREMITIES: 2+ pulses, warm, well-perfused, no edema. NEUROLOGICAL: Cranial nerves II through XII grossly intact. Normal speech, gait not observed. PSYCH: Normal mood, normal affect. SKIN: Warm, dry, normal turgor, no rashes or lesions noted. LABS Laboratory Results - last 24 hr 12/05/18 12/06/18 12/06/18 17:00 11:45 16:45 WBC 7.1 6.9 RBC 2.54 L 2.63 L Hgb 7.8 L 8.0 L Hct 24.5 L 25.5 L MCV 96.6 H 96.9 H MCH 30.5 30.3 MCHC 31.6 L 31.2 L RDW 14.1 14.5 Plt Count 211 230 MPV 7.9 7.7 Absolute Neuts (auto) 4.6 Neutrophils % 65.8 Lymphocytes % 14.8 Monocytes % 12.4 H Eosinophils % 6.2 H Basophils % 0.8 Sodium Potassium Chloride Carbon Dioxide Anion Gap BUN Creatinine Creat Clearance w eGFR Random Glucose Calcium Magnesium Total Bilirubin AST ALT Alkaline Phosphatase Total Protein Albumin Blood Type A POSITIVE Antibody Screen Negative Crossmatch See Detail 12/07/18 12/07/18 07:06 07:06 WBC 5.9 RBC 2.78 L Hgb 8.5 L Hct 26.2 L MCV 94.3 MCH 30.7 MCHC 32.6 RDW 15.1 Plt Count 188 MPV 8.5 D Absolute Neuts (auto) Neutrophils % Lymphocytes % Monocytes % Eosinophils % Basophils % Sodium 139 Potassium 4.0 Chloride 109 H Carbon Dioxide 24 Anion Gap 6 L BUN 40 H Creatinine 1.1 Creat Clearance w eGFR 65.08 Random Glucose 95 Calcium 8.7 Magnesium 1.8 Total Bilirubin 1.0 AST 24 ALT 13 Alkaline Phosphatase 66 Total Protein 5.8 L Albumin 3.3 L Blood Type Antibody Screen Crossmatch HOSPITAL COURSE: Date of Admission:12/05/18 Date of Discharge: 12/07/18 Minutes to complete discharge: 35 Discharge Summary Reason For Visit: VASOVAGAL SYNCOPE/UPPER GI HEMMORHAGE Current Active Problems CAD (coronary artery disease) (Acute) Chronic anticoagulation (Acute) Erythematous gastropathy (Acute) GI bleed (Acute) HLD (hyperlipidemia) (Acute) Ischemic cardiomyopathy (Acute) Melena (Acute) Upper GI bleed (Acute) Vasovagal syncope (Acute) Condition: Stable - Instructions Diet, Activity, Other Instructions: You should STOP taking aspirin. Referrals: Beto Lester MD [Staff Physician] - 1 Week Chay Reyna MD [Staff Physician] - 1 Week Sobia Miller DO [Staff Physician] - Disposition: HOME - Home Medications Comprehensive Discharge Medication List: Ambulatory Orders Duloxetine HCl [Cymbalta -] 30 mg PO DAILY 05/16/17 Montelukast Na [Singulair -] 10 mg PO AM 05/16/17 Pregabalin [Lyrica -] 50 mg PO AM 05/16/17 Apixaban [Eliquis -] 5 mg PO BID tablet 05/20/17 Ferrous Sulfate [Feosol] 325 mg PO BIDWM tablet 05/20/17 levETIRAcetam [Keppra -] 500 mg PO BID 05/30/17 Carvedilol [Coreg -] 6.25 mg PO BID tablet 07/25/17 Spironolactone [Aldactone -] 25 mg PO DAILY tablet 07/25/17 Valsartan [Diovan] 80 mg PO DAILY tablet 07/25/17 Atorvastatin Ca [Lipitor] 80 mg PO HS 12/05/18 Duloxetine HCl 30 mg PO AM 12/05/18 Carvedilol [Coreg -] 6.25 mg PO BID tablet 12/07/18 Pantoprazole Sodium [Protonix -] 40 mg PO DAILY #30 tablet.ec 12/07/18 - Discharge Referral Referred to [facility] No
== END 2018-12-07 10:55 | disposition home or self-care (01) | DRG 378 ==
LOC: FER 16:15 → FM/S 18:52
PROVIDERS: ADMIT Internal Medicine; ATTEND Nurse Practitioner Acute Care
PROC: 30233N1 Transfusion of Nonautologous Red Blood Cells into Peripheral Vein, Percutaneous Approach (ICD-10-PCS; 2018-12-06)
PROC: 0DJ08ZZ Inspection of Upper Intestinal Tract, Via Natural or Artificial Opening Endoscopic (ICD-10-PCS; principal; 2018-12-06 14:20)
DX: K92.2 Gastrointestinal hemorrhage, unspecified (principal); D62 Acute posthemorrhagic anemia; M46.20 Osteomyelitis of vertebra, site unspecified; I50.40 Unspecified combined systolic (congestive) and diastolic (congestive) heart failure; I25.10 Atherosclerotic heart disease of native coronary artery without angina pectoris; I25.2 Old myocardial infarction; E78.5 Hyperlipidemia, unspecified; J44.9 Chronic obstructive pulmonary disease, unspecified; I71.2 Thoracic aortic aneurysm, without rupture; I48.0 Paroxysmal atrial fibrillation; R55 Syncope and collapse; K29.70 Gastritis, unspecified, without bleeding; M54.5 Low back pain; M54.31 Sciatica, right side; I11.0 Hypertensive heart disease with heart failure; K31.9 Disease of stomach and duodenum, unspecified; I25.5 Ischemic cardiomyopathy; Z95.1 Presence of aortocoronary bypass graft; Z79.01 Long term (current) use of anticoagulants
CPT/HCPCS: 36415; 36430; 71045-TC-FY; 80053; 82272; 82550; 82553; 83690; 83735; 84100; 84484; 85025; 85027; 85610; 86850; 86900; 86901; 86922; 93005; 99285-25; J7030; P9038; P9058

== ENCOUNTER 2021-12-17 12:29 | Inpatient (IN) | payer OTHER, BC ==
[2021-12-17] MEDS ORDERED: morphine CARPU-JECT 4 MG/1 ML DISP.SYRIN IVPUSH ONE (13:05)
[2021-12-17] MEDS ORDERED: morphine SULFATE 4 MG/ML VIAL ONE (13:08)
[2021-12-17 13:41] LABS: BASO % 0.9 % (0-2.0); EOS % 2.9 % (0-4.5); HEMATOCRIT 42.3 % (35.4-49); HEMOGLOBIN 13.6 GM/dL (11.7-16.9); MCH 31.2 pg (25.7-33.7); MCHC 32.2 g/dl (32.0-35.9); MEAN CELL VOLUME 96.8 fl (80-96); MEAN PLT VOLUME 9.8 fl (7.5-11.1); MONO % 15.9 % (3.8-10.2); NEUT % 70.3 % (42.8-82.8); PLATELET COUNT 153 10^3/uL (134-434); RBC 4.37 M/mm3 (4.00-5.60); RDW 16.6 % (11.9-15.9); WHITE BLOOD COUNT 5.5 K/mm3 (4.0-10.0)
[2021-12-17 14:00] LABS: CHLORIDE 96 mmol/L (98-107); SODIUM 130 mmol/L (136-145)
[2021-12-17 14:01] LABS: ALBUMIN 2.9 g/dl (3.4-5.0)
[2021-12-17 14:02] LABS: BLOOD UREA NITROGEN 46.7 mg/dL (7-18); CALCIUM 8.4 mg/dL (8.5-10.1); CO2 37 mmol/L (21-32); GLUCOSE,RANDOM 86 mg/dL (74-106)
[2021-12-17 14:06] LABS: CREATININE 1.6 mg/dL (0.55-1.3)
[2021-12-17 14:07] LABS: TOT PROT 7.9 g/dl (6.4-8.2)
[2021-12-17 14:08] LABS: ALK PHOS 80 U/L (45-117)
[2021-12-17 14:10] LABS: N-TERMINAL BNP 5866.9 pg/ml (5-450)
[2021-12-17] MEDS ORDERED: FUROSEMIDE 40 MG/4 ML INJECTABLE VIAL IVPUSH ONE ×2 (14:28→23:42)
[2021-12-17] MEDS ORDERED: FUROSEMIDE 40 MG/4 ML INJECTABLE VIAL ONE (14:45)
[2021-12-17 14:48] LABS: ANION GAP -3 MMOL/L (8-16)
[2021-12-17] MEDS ORDERED: NALOXONE HCL 0.4 MG/ML VIAL ONE ×2 (15:57→16:03)
[2021-12-17] MEDS ORDERED: NALOXONE HCL 0.4 MG/ML VIAL IVPUSH ONE ×2 (16:09→23:02)
[2021-12-17 16:45] LABS: ALBUMIN 3.1 g/dl (3.4-5.0); BLOOD UREA NITROGEN 44.5 mg/dL (7-18); CALCIUM 8.6 mg/dL (8.5-10.1)
[2021-12-17 16:48] LABS: CREATININE 1.7 mg/dL (0.55-1.3)
[2021-12-17 16:50] LABS: TOT PROT 6.8 g/dl (6.4-8.2)
[2021-12-17 19:51] LABS: ARTERIAL BLD GAS O2 SATURATION 89.5 % (95-98); ARTERIAL BLOOD GAS BASE EXCESS 6.1 mmol/L (-2-2); ARTERIAL BLOOD GAS PO2 71.7 mmHg (80-100); ARTERIAL BLOOD GAS pH 7.202 (7.350-7.450)
[2021-12-17 19:52] LABS: ALLENS TEST POSITIVE
[2021-12-17 22:33] LABS: ARTERIAL BLD GAS O2 SATURATION 95.7 % (95-98); ARTERIAL BLOOD GAS BASE EXCESS 5.6 mmol/L (-2-2); ARTERIAL BLOOD GAS PO2 100.7 mmHg (80-100)
[2021-12-17 22:45] LABS: ALLENS TEST POSITIVE; VENT MODE S/T
[2021-12-17 22:48] LABS: VENT RATE 20
[2021-12-17 22:50] LABS: ARTERIAL BLOOD GAS pH 7.193 (7.350-7.450)
[2021-12-17 23:50] LABS: ARTERIAL BLD GAS O2 SATURATION 98.8 % (95-98); ARTERIAL BLOOD GAS BASE EXCESS 7.4 mmol/L (-2-2); ARTERIAL BLOOD GAS PO2 171.8 mmHg (80-100)
[2021-12-17 23:53] LABS: ALLENS TEST POSITIVE
[2021-12-17 23:54] LABS: VENT MODE S/T; VENT RATE 26
[2021-12-18] MEDS ORDERED: LIDOCAINE HCL 2% JELLY 10 ML CARTRIDGE UR ONE (00:23)
[2021-12-18] MEDS: HEPARIN NA (PORCINE) 5,000 UNITS/ML 1ML VIAL SQ SCH ×4 (01:00→21:22)
[2021-12-18] MEDS: NYSTATIN POWDER 100,000 UNITS/GM - 15 GM TOPICAL POWDER TP SCH ×3 (01:46→21:22)
[2021-12-18 02:46] LABS: ARTERIAL BLD GAS O2 SATURATION 98.3 % (95-98); ARTERIAL BLOOD GAS BASE EXCESS 7.3 mmol/L (-2-2); ARTERIAL BLOOD GAS PO2 123.9 mmHg (80-100); ARTERIAL BLOOD GAS pH 7.367 (7.350-7.450)
[2021-12-18] MEDS: DOCUSATE SODIUM 100 MG CAPSULE (FP) PO SCH ×3 (05:29→21:22)
[2021-12-18] MEDS: PREGABALIN 50 MG CAPSULE PO SCH (06:43)
[2021-12-18 08:06] LABS: BASO % 0.7 % (0-2.0); EOS % 4.1 % (0-4.5); HEMATOCRIT 41.6 % (35.4-49); LYMPH % 11.7 % (8-40); MCH 31.4 pg (25.7-33.7); MCHC 31.2 g/dl (32.0-35.9); MEAN CELL VOLUME 100.4 fl (80-96); MEAN PLT VOLUME 9.8 fl (7.5-11.1); NEUT % 67.5 % (42.8-82.8); PLATELET COUNT 116 10^3/uL (134-434); RBC 4.15 M/mm3 (4.00-5.60); RDW 16.5 % (11.9-15.9)
[2021-12-18 08:17] LABS: CALCIUM 8.3 mg/dL (8.5-10.1)
[2021-12-18 08:18] LABS: MAGNESIUM 2.1 mg/dL (1.8-2.4)
[2021-12-18 08:20] LABS: ALBUMIN 2.8 g/dl (3.4-5.0)
[2021-12-18 08:21] LABS: CREATININE 1.6 mg/dL (0.55-1.3)
[2021-12-18 08:23] LABS: PHOSPHOROUS 5.3 mg/dL (2.5-4.9); TOT PROT 6.4 g/dl (6.4-8.2)
[2021-12-18 08:24] LABS: BILIRUBIN,TOTAL 1.6 mg/dL (0.2-1)
[2021-12-18] MEDS: FUROSEMIDE 40 MG/4 ML INJECTABLE VIAL IVPUSH SCH ×2 (08:42→14:19)
[2021-12-18] MEDS ORDERED: ACETAMINOPHEN 1000 MG/100 ML BAG IVPB PRN (09:10)
[2021-12-18] MEDS ORDERED: ACETAMINOPHEN 1000 MG/100 ML BAG IVPB ONE (09:25)
[2021-12-18] MEDS ORDERED: FUROSEMIDE 40 MG/4 ML INJECTABLE VIAL IVPUSH SCH (10:00)
[2021-12-18] MEDS: BACITRACIN 15 GM TUBE TOPICAL OINTMENT TP SCH (10:45)
[2021-12-18] MEDS: LIDOCAINE 5% TOPICAL PATCH TP SCH (10:45)
[2021-12-18] MEDS: CARVEDILOL 25 MG TABLET (FP) PO SCH ×2 (10:59→21:22)
[2021-12-18] MEDS: DULoxetine HCL 30 MG CAPSULE.DR PO SCH (10:59)
[2021-12-18] MEDS: VALSARTAN 80 MG TABLET PO SCH ×2 (10:59→21:22)
[2021-12-18] MEDS: ATORVASTATIN CA 80 MG TABLET (FP) PO SCH (21:22)
[2021-12-18] MEDS: LIDOCAINE PATCH REMOVAL MC SCH (21:22)
[2021-12-18] MEDS: MONTELUKAST NA 10 MG TABLET PO SCH (21:22)
[2021-12-19] MEDS: DOCUSATE SODIUM 100 MG CAPSULE (FP) PO SCH ×3 (06:06→21:26)
[2021-12-19] MEDS: PREGABALIN 50 MG CAPSULE PO SCH (06:06)
[2021-12-19] MEDS: FUROSEMIDE 40 MG/4 ML INJECTABLE VIAL IVPUSH SCH ×2 (06:06→14:18)
[2021-12-19] MEDS: HEPARIN NA (PORCINE) 5,000 UNITS/ML 1ML VIAL SQ SCH ×3 (06:06→21:26)
[2021-12-19] MEDS: VALSARTAN 80 MG TABLET PO SCH ×2 (10:09→21:26)
[2021-12-19] MEDS: BACITRACIN 15 GM TUBE TOPICAL OINTMENT TP SCH (10:09)
[2021-12-19] MEDS: DULoxetine HCL 30 MG CAPSULE.DR PO SCH (10:10)
[2021-12-19] MEDS: LIDOCAINE 5% TOPICAL PATCH TP SCH (10:10)
[2021-12-19] MEDS: CARVEDILOL 25 MG TABLET (FP) PO SCH ×2 (10:12→21:26)
[2021-12-19] MEDS: NYSTATIN POWDER 100,000 UNITS/GM - 15 GM TOPICAL POWDER TP SCH ×2 (10:13→21:26)
[2021-12-19 10:39] LABS: BASO % 0.5 % (0-2.0); EOS % 3.9 % (0-4.5); HEMATOCRIT 35.6 % (35.4-49); HEMOGLOBIN 11.8 GM/dL (11.7-16.9); LYMPH % 10.4 % (8-40); MCH 32.2 pg (25.7-33.7); MCHC 33.1 g/dl (32.0-35.9); MEAN CELL VOLUME 97.5 fl (80-96); MONO % 10.9 % (3.8-10.2); NEUT % 74.3 % (42.8-82.8); PLATELET COUNT 103 10^3/uL (134-434); RBC 3.66 M/mm3 (4.00-5.60); RDW 15.8 % (11.9-15.9)
[2021-12-19 10:45] LABS: CALCIUM 8.2 mg/dL (8.5-10.1)
[2021-12-19 10:46] LABS: ALBUMIN 2.6 g/dl (3.4-5.0); MAGNESIUM 1.8 mg/dL (1.8-2.4)
[2021-12-19 10:47] LABS: BLOOD UREA NITROGEN 43.5 mg/dL (7-18)
[2021-12-19 10:49] LABS: CREATININE 1.4 mg/dL (0.55-1.3)
[2021-12-19 10:51] LABS: TOT PROT 5.3 g/dl (6.4-8.2)
[2021-12-19] MEDS ORDERED: POTASSIUM CHLORIDE TABS 20 MEQ TABLET.ER (FP) PO ONE (12:03)
[2021-12-19] MEDS: MONTELUKAST NA 10 MG TABLET PO SCH (21:26)
[2021-12-19] MEDS: ATORVASTATIN CA 80 MG TABLET (FP) PO SCH (21:26)
[2021-12-19] MEDS: LIDOCAINE PATCH REMOVAL MC SCH (21:26)
[2021-12-20] MEDS: FUROSEMIDE 40 MG/4 ML INJECTABLE VIAL IVPUSH SCH ×2 (05:53→14:32)
[2021-12-20] MEDS: HEPARIN NA (PORCINE) 5,000 UNITS/ML 1ML VIAL SQ SCH ×3 (05:54→22:17)
[2021-12-20 06:04] LABS: ARTERIAL BLD GAS O2 SATURATION 90.4 % (95-98); ARTERIAL BLOOD GAS BASE EXCESS 9.9 mmol/L (-2-2); ARTERIAL BLOOD GAS PO2 65.3 mmHg (80-100); ARTERIAL BLOOD GAS pH 7.326 (7.350-7.450)
[2021-12-20 06:05] LABS: ALLENS TEST POSITIVE
[2021-12-20] MEDS: DOCUSATE SODIUM 100 MG CAPSULE (FP) PO SCH ×3 (06:09→22:17)
[2021-12-20] MEDS: PREGABALIN 50 MG CAPSULE PO SCH (06:09)
[2021-12-20 08:07] LABS: CALCIUM 7.9 mg/dL (8.5-10.1)
[2021-12-20 08:08] LABS: ALBUMIN 2.3 g/dl (3.4-5.0); BLOOD UREA NITROGEN 35.7 mg/dL (7-18)
[2021-12-20 08:11] LABS: CREATININE 1.2 mg/dL (0.55-1.3)
[2021-12-20 08:12] LABS: HEMATOCRIT 35.8 % (35.4-49); HEMOGLOBIN 11.3 GM/dL (11.7-16.9); MCH 31.3 pg (25.7-33.7); MCHC 31.7 g/dl (32.0-35.9); MEAN CELL VOLUME 98.7 fl (80-96); MEAN PLT VOLUME 9.9 fl (7.5-11.1); PLATELET COUNT 119 10^3/uL (134-434); RBC 3.63 M/mm3 (4.00-5.60); RDW 15.8 % (11.9-15.9); WHITE BLOOD COUNT 4.4 K/mm3 (4.0-10.0)
[2021-12-20 08:13] LABS: TOT PROT 5.4 g/dl (6.4-8.2)
[2021-12-20] MEDS: LIDOCAINE 5% TOPICAL PATCH TP SCH (09:18)
[2021-12-20] MEDS: DULoxetine HCL 30 MG CAPSULE.DR PO SCH (09:19)
[2021-12-20] MEDS: CARVEDILOL 25 MG TABLET (FP) PO SCH ×2 (09:19→22:17)
[2021-12-20] MEDS: VALSARTAN 80 MG TABLET PO SCH ×2 (09:20→22:17)
[2021-12-20] MEDS: BACITRACIN 15 GM TUBE TOPICAL OINTMENT TP SCH (09:20)
[2021-12-20] MEDS: NYSTATIN POWDER 100,000 UNITS/GM - 15 GM TOPICAL POWDER TP SCH ×2 (09:20→22:17)
[2021-12-20] MEDS: ACETAMINOPHEN 1000 MG/100 ML BAG IVPB PRN ×3 (10:18→22:23)
[2021-12-20 10:23] LABS: ANISOCYTOSIS 0; HELMET CELLS 0; HOWELL-JOLLY BODIES 0; MACROCYTOSIS 0; OVALOCYTE 0; ROULEAU 0; SICKELED CELLS 0; TARGET CELLS 0; TEAR DROP CELLS 0; TOXIC GRANULATION 0
[2021-12-20] MEDS ORDERED: MELATONIN 5 MG TABLETS PO ONE (21:18)
[2021-12-20] MEDS: LIDOCAINE PATCH REMOVAL MC SCH (22:17)
[2021-12-20] MEDS: ATORVASTATIN CA 80 MG TABLET (FP) PO SCH (22:17)
[2021-12-20] MEDS: MONTELUKAST NA 10 MG TABLET PO SCH (22:17)
[2021-12-21] MEDS: HEPARIN NA (PORCINE) 5,000 UNITS/ML 1ML VIAL SQ SCH ×3 (06:24→22:16)
[2021-12-21] MEDS: ACETAMINOPHEN 1000 MG/100 ML BAG IVPB PRN (06:24)
[2021-12-21] MEDS: DOCUSATE SODIUM 100 MG CAPSULE (FP) PO SCH ×3 (06:24→22:16)
[2021-12-21] MEDS: FUROSEMIDE 40 MG/4 ML INJECTABLE VIAL IVPUSH SCH ×2 (06:24→14:47)
[2021-12-21] MEDS: PREGABALIN 50 MG CAPSULE PO SCH (06:24)
[2021-12-21 08:14] LABS: ALBUMIN 2.4 g/dl (3.4-5.0); BLOOD UREA NITROGEN 38.4 mg/dL (7-18); CREATININE 1.2 mg/dL (0.55-1.3)
[2021-12-21 08:15] LABS: CALCIUM 8.3 mg/dL (8.5-10.1); MAGNESIUM 1.9 mg/dL (1.8-2.4)
[2021-12-21 08:16] LABS: TOT PROT 5.3 g/dl (6.4-8.2)
[2021-12-21 08:30] LABS: BASO % 0.6 % (0-2.0); EOS % 7.5 % (0-4.5); HEMATOCRIT 34.6 % (35.4-49); LYMPH % 10.8 % (8-40); MCH 31.4 pg (25.7-33.7); MCHC 31.9 g/dl (32.0-35.9); MEAN CELL VOLUME 98.4 fl (80-96); MEAN PLT VOLUME 9.5 fl (7.5-11.1); MONO % 17.7 % (3.8-10.2); NEUT % 63.4 % (42.8-82.8); PLATELET COUNT 113 10^3/uL (134-434); RBC 3.52 M/mm3 (4.00-5.60); RDW 15.9 % (11.9-15.9); WHITE BLOOD COUNT 4.5 K/mm3 (4.0-10.0)
[2021-12-21] MEDS: LIDOCAINE 5% TOPICAL PATCH TP SCH ×2 (09:04→14:48)
[2021-12-21] MEDS: CARVEDILOL 25 MG TABLET (FP) PO SCH ×2 (09:04→22:16)
[2021-12-21] MEDS: BACITRACIN 15 GM TUBE TOPICAL OINTMENT TP SCH (09:04)
[2021-12-21] MEDS: VALSARTAN 80 MG TABLET PO SCH ×2 (09:04→22:16)
[2021-12-21] MEDS: DULoxetine HCL 30 MG CAPSULE.DR PO SCH (09:05)
[2021-12-21] MEDS: NYSTATIN POWDER 100,000 UNITS/GM - 15 GM TOPICAL POWDER TP SCH ×2 (09:11→22:16)
[2021-12-21] MEDS ORDERED: oxyCODONE HCL 5 MG TABLET PO ONE (11:14)
[2021-12-21] MEDS ORDERED: LIDOCAINE 5% TOPICAL PATCH TP SCH (12:00)
[2021-12-21] MEDS ORDERED: oxyCODONE HCL 5 MG TABLET PO PRN (12:02)
[2021-12-21] MEDS: ACETAMINOPHEN 325 MG TABLET (FP) PO SCH ×2 (12:25→17:39)
[2021-12-21 12:44] LABS: ARTERIAL BLD GAS O2 SATURATION 94.4 % (95-98); ARTERIAL BLOOD GAS BASE EXCESS 14.4 mmol/L (-2-2); ARTERIAL BLOOD GAS PO2 77.7 mmHg (80-100); ARTERIAL BLOOD GAS pH 7.365 (7.350-7.450)
[2021-12-21 12:45] LABS: ALLENS TEST POSITIVE
[2021-12-21] MEDS ORDERED: MELATONIN 5 MG TABLETS PO PRN (21:00)
[2021-12-21] MEDS: LIDOCAINE PATCH REMOVAL MC SCH (22:16)
[2021-12-21] MEDS: ATORVASTATIN CA 80 MG TABLET (FP) PO SCH (22:16)
[2021-12-21] MEDS: MONTELUKAST NA 10 MG TABLET PO SCH (22:16)
[2021-12-22] MEDS: ACETAMINOPHEN 325 MG TABLET (FP) PO SCH ×4 (00:28→17:32)
[2021-12-22] MEDS: DOCUSATE SODIUM 100 MG CAPSULE (FP) PO SCH ×3 (05:44→21:41)
[2021-12-22] MEDS: FUROSEMIDE 40 MG/4 ML INJECTABLE VIAL IVPUSH SCH ×2 (05:45→14:30)
[2021-12-22] MEDS: HEPARIN NA (PORCINE) 5,000 UNITS/ML 1ML VIAL SQ SCH ×3 (05:45→21:40)
[2021-12-22] MEDS: PREGABALIN 50 MG CAPSULE PO SCH (06:33)
[2021-12-22 06:51] LABS: BASO % 0.8 % (0-2.0); EOS % 8.9 % (0-4.5); HEMATOCRIT 35.7 % (35.4-49); HEMOGLOBIN 11.3 GM/dL (11.7-16.9); LYMPH % 13.1 % (8-40); MCH 31.2 pg (25.7-33.7); MCHC 31.6 g/dl (32.0-35.9); MEAN CELL VOLUME 98.6 fl (80-96); MEAN PLT VOLUME 9.8 fl (7.5-11.1); MONO % 17.8 % (3.8-10.2); NEUT % 59.4 % (42.8-82.8); PLATELET COUNT 123 10^3/uL (134-434); RBC 3.62 M/mm3 (4.00-5.60); WHITE BLOOD COUNT 4.2 K/mm3 (4.0-10.0)
[2021-12-22 07:09] LABS: BLOOD UREA NITROGEN 34.9 mg/dL (7-18); CALCIUM 8.2 mg/dL (8.5-10.1)
[2021-12-22 07:10] LABS: ALBUMIN 2.2 g/dl (3.4-5.0); MAGNESIUM 1.9 mg/dL (1.8-2.4)
[2021-12-22 07:12] LABS: CREATININE 1.1 mg/dL (0.55-1.3)
[2021-12-22 07:14] LABS: BILIRUBIN,TOTAL 1.3 mg/dL (0.2-1); TOT PROT 5.7 g/dl (6.4-8.2)
[2021-12-22] MEDS: CARVEDILOL 25 MG TABLET (FP) PO SCH ×2 (10:09→21:40)
[2021-12-22] MEDS: DULoxetine HCL 30 MG CAPSULE.DR PO SCH (10:09)
[2021-12-22] MEDS: VALSARTAN 80 MG TABLET PO SCH ×2 (10:09→21:40)
[2021-12-22] MEDS: LIDOCAINE 5% TOPICAL PATCH TP SCH (10:09)
[2021-12-22] MEDS: NYSTATIN POWDER 100,000 UNITS/GM - 15 GM TOPICAL POWDER TP SCH ×2 (10:10→22:20)
[2021-12-22] MEDS: BACITRACIN 15 GM TUBE TOPICAL OINTMENT TP SCH (10:10)
[2021-12-22] MEDS ORDERED: TAMSULOSIN HCL 0.4 MG CAP PO ONE (11:07)
[2021-12-22 13:51] VITALS: BMI 34.4
[2021-12-22] MEDS: AMINO ACIDS/PROTEIN HYDROLYS 30 ML LIQUID.PKT PO SCH (17:32)
[2021-12-22] MEDS: ATORVASTATIN CA 80 MG TABLET (FP) PO SCH (21:40)
[2021-12-22] MEDS: MONTELUKAST NA 10 MG TABLET PO SCH (21:41)
[2021-12-22] MEDS: LIDOCAINE PATCH REMOVAL MC SCH (21:41)
[2021-12-22] MEDS: TAMSULOSIN HCL 0.4 MG CAP PO SCH (21:41)
[2021-12-23] MEDS: ACETAMINOPHEN 325 MG TABLET (FP) PO SCH ×5 (00:20→23:32)
[2021-12-23] MEDS: FUROSEMIDE 40 MG/4 ML INJECTABLE VIAL IVPUSH SCH ×2 (06:39→13:26)
[2021-12-23] MEDS: DOCUSATE SODIUM 100 MG CAPSULE (FP) PO SCH ×3 (06:39→21:25)
[2021-12-23] MEDS: PREGABALIN 50 MG CAPSULE PO SCH (06:39)
[2021-12-23] MEDS: HEPARIN NA (PORCINE) 5,000 UNITS/ML 1ML VIAL SQ SCH ×3 (06:39→21:24)
[2021-12-23 07:22] LABS: HEMATOCRIT 34.6 % (35.4-49); HEMOGLOBIN 11.3 GM/dL (11.7-16.9); MCH 31.8 pg (25.7-33.7); MCHC 32.8 g/dl (32.0-35.9); MEAN CELL VOLUME 97.2 fl (80-96); MEAN PLT VOLUME 9.6 fl (7.5-11.1); PLATELET COUNT 122 10^3/uL (134-434); RBC 3.56 M/mm3 (4.00-5.60); RDW 15.8 % (11.9-15.9); WHITE BLOOD COUNT 3.8 K/mm3 (4.0-10.0)
[2021-12-23 07:34] LABS: CALCIUM 8.5 mg/dL (8.5-10.1)
[2021-12-23 07:35] LABS: ALBUMIN 2.5 g/dl (3.4-5.0); BLOOD UREA NITROGEN 39.7 mg/dL (7-18)
[2021-12-23 07:40] LABS: BILIRUBIN,TOTAL 1.9 mg/dL (0.2-1); TOT PROT 5.7 g/dl (6.4-8.2)
[2021-12-23] MEDS ORDERED: TAMSULOSIN HCL 0.4 MG CAP PO SCH (08:30)
[2021-12-23] MEDS: AMINO ACIDS/PROTEIN HYDROLYS 30 ML LIQUID.PKT PO SCH ×2 (08:31→17:13)
[2021-12-23] MEDS: TAMSULOSIN HCL 0.4 MG CAP PO SCH ×2 (08:31→21:24)
[2021-12-23] MEDS: NYSTATIN POWDER 100,000 UNITS/GM - 15 GM TOPICAL POWDER TP SCH ×2 (09:20→21:25)
[2021-12-23] MEDS: BACITRACIN 15 GM TUBE TOPICAL OINTMENT TP SCH (09:20)
[2021-12-23] MEDS: DULoxetine HCL 30 MG CAPSULE.DR PO SCH (09:21)
[2021-12-23] MEDS: LIDOCAINE 5% TOPICAL PATCH TP SCH (09:21)
[2021-12-23] MEDS: VALSARTAN 80 MG TABLET PO SCH ×2 (09:21→21:24)
[2021-12-23] MEDS: CARVEDILOL 25 MG TABLET (FP) PO SCH ×2 (09:21→21:25)
[2021-12-23] MEDS: MULTIVITAMINS (DAILY MVI) TABLET (FP) PO SCH (09:22)
[2021-12-23 09:33] LABS: ANISOCYTOSIS 0; MACROCYTOSIS 0
[2021-12-23] MEDS ORDERED: cefTRIAXone SODIUM 1 GM VIAL ONE (11:33)
[2021-12-23] MEDS ORDERED: DEXTROSE 5%-WATER - 50 ML IVPB ONE (11:33)
[2021-12-23] MEDS: CEFTRIAXONE 1 GM in DEXTROSE 5%-WATER - 50 ML IVPB SCH (11:34)
[2021-12-23] MEDS ORDERED: oxyCODONE HCL 5 MG TABLET PO ONE (11:45)
[2021-12-23] MEDS: ALBUTEROL SO4 2.5/IPRATROPIUM 0.5 INH SOL 3 ML VIAL.NEB. NEB SCH ×2 (15:00→20:06)
[2021-12-23] MEDS: ATORVASTATIN CA 80 MG TABLET (FP) PO SCH (21:24)
[2021-12-23] MEDS: MONTELUKAST NA 10 MG TABLET PO SCH (21:24)
[2021-12-23] MEDS: LIDOCAINE PATCH REMOVAL MC SCH (21:25)
[2021-12-24] MEDS: FUROSEMIDE 40 MG/4 ML INJECTABLE VIAL IVPUSH SCH ×2 (05:44→14:59)
[2021-12-24] MEDS: DOCUSATE SODIUM 100 MG CAPSULE (FP) PO SCH ×3 (05:46→21:20)
[2021-12-24] MEDS: ACETAMINOPHEN 325 MG TABLET (FP) PO SCH ×4 (05:46→23:48)
[2021-12-24] MEDS: HEPARIN NA (PORCINE) 5,000 UNITS/ML 1ML VIAL SQ SCH ×3 (05:47→21:21)
[2021-12-24] MEDS: PREGABALIN 50 MG CAPSULE PO SCH (06:02)
[2021-12-24 07:04] LABS: ALBUMIN 2.5 g/dl (3.4-5.0)
[2021-12-24 07:05] LABS: MAGNESIUM 2.1 mg/dL (1.8-2.4)
[2021-12-24 07:06] LABS: CREATININE 0.9 mg/dL (0.55-1.3)
[2021-12-24 07:09] LABS: BILIRUBIN,TOTAL 1.4 mg/dL (0.2-1)
[2021-12-24] MEDS: ALBUTEROL SO4 2.5/IPRATROPIUM 0.5 INH SOL 3 ML VIAL.NEB. NEB SCH ×3 (07:50→20:20)
[2021-12-24] MEDS ORDERED: cefTRIAXone SODIUM 1 GM VIAL ONE (10:05)
[2021-12-24] MEDS ORDERED: DEXTROSE 5%-WATER - 50 ML IVPB ONE (10:05)
[2021-12-24] MEDS: LIDOCAINE 5% TOPICAL PATCH TP SCH (10:06)
[2021-12-24] MEDS: DULoxetine HCL 30 MG CAPSULE.DR PO SCH (10:06)
[2021-12-24] MEDS: AMINO ACIDS/PROTEIN HYDROLYS 30 ML LIQUID.PKT PO SCH ×2 (10:06→17:33)
[2021-12-24] MEDS: CARVEDILOL 25 MG TABLET (FP) PO SCH ×2 (10:06→21:21)
[2021-12-24] MEDS: TAMSULOSIN HCL 0.4 MG CAP PO SCH ×2 (10:06→21:21)
[2021-12-24] MEDS: BACITRACIN 15 GM TUBE TOPICAL OINTMENT TP SCH (10:06)
[2021-12-24] MEDS: VALSARTAN 80 MG TABLET PO SCH ×2 (10:06→21:21)
[2021-12-24] MEDS: CEFTRIAXONE 1 GM in DEXTROSE 5%-WATER - 50 ML IVPB SCH (10:07)
[2021-12-24] MEDS: MULTIVITAMINS (DAILY MVI) TABLET (FP) PO SCH (10:07)
[2021-12-24] MEDS: NYSTATIN POWDER 100,000 UNITS/GM - 15 GM TOPICAL POWDER TP SCH ×2 (10:07→21:45)
[2021-12-24] MEDS: MONTELUKAST NA 10 MG TABLET PO SCH (21:21)
[2021-12-24] MEDS: ATORVASTATIN CA 80 MG TABLET (FP) PO SCH (21:21)
[2021-12-24] MEDS: LIDOCAINE PATCH REMOVAL MC SCH (21:45)
[2021-12-25] MEDS: HEPARIN NA (PORCINE) 5,000 UNITS/ML 1ML VIAL SQ SCH (05:00)
[2021-12-25] MEDS: FUROSEMIDE 40 MG/4 ML INJECTABLE VIAL IVPUSH SCH (05:00)
[2021-12-25] MEDS: ACETAMINOPHEN 325 MG TABLET (FP) PO SCH ×3 (05:01→18:50)
[2021-12-25] MEDS: DOCUSATE SODIUM 100 MG CAPSULE (FP) PO SCH ×3 (05:57→21:05)
[2021-12-25] MEDS: PREGABALIN 50 MG CAPSULE PO SCH (05:59)
[2021-12-25 07:38] LABS: ALBUMIN 2.2 g/dl (3.4-5.0); CALCIUM 8.6 mg/dL (8.5-10.1)
[2021-12-25 07:43] LABS: TOT PROT 5.8 g/dl (6.4-8.2)
[2021-12-25] MEDS: ALBUTEROL SO4 2.5/IPRATROPIUM 0.5 INH SOL 3 ML VIAL.NEB. NEB SCH ×3 (08:31→20:54)
[2021-12-25] MEDS ORDERED: CEPHALEXIN 250 MG/5 ML ORAL SUSPENSION PO SCH (10:00)
[2021-12-25] MEDS ORDERED: cefTRIAXone SODIUM 1 GM VIAL ONE (10:31)
[2021-12-25] MEDS ORDERED: DEXTROSE 5%-WATER - 50 ML IVPB ONE (10:31)
[2021-12-25] MEDS: MULTIVITAMINS (DAILY MVI) TABLET (FP) PO SCH (10:33)
[2021-12-25] MEDS: CARVEDILOL 25 MG TABLET (FP) PO SCH ×2 (10:33→21:04)
[2021-12-25] MEDS: VALSARTAN 80 MG TABLET PO SCH ×2 (10:33→21:04)
[2021-12-25] MEDS: AMINO ACIDS/PROTEIN HYDROLYS 30 ML LIQUID.PKT PO SCH ×2 (10:34→18:25)
[2021-12-25] MEDS: TAMSULOSIN HCL 0.4 MG CAP PO SCH ×2 (10:34→21:05)
[2021-12-25] MEDS: CEFTRIAXONE 1 GM in DEXTROSE 5%-WATER - 50 ML IVPB SCH (10:34)
[2021-12-25] MEDS: DULoxetine HCL 30 MG CAPSULE.DR PO SCH (10:34)
[2021-12-25] MEDS: LIDOCAINE 5% TOPICAL PATCH TP SCH (10:35)
[2021-12-25] MEDS: BACITRACIN 15 GM TUBE TOPICAL OINTMENT TP SCH (10:35)
[2021-12-25] MEDS: NYSTATIN POWDER 100,000 UNITS/GM - 15 GM TOPICAL POWDER TP SCH ×2 (10:35→21:05)
[2021-12-25] MEDS ORDERED: FUROSEMIDE 40 MG TABLET (FP) PO SCH (14:00)
[2021-12-25 19:28] VITALS: TEMP 98.5
[2021-12-25] MEDS: MONTELUKAST NA 10 MG TABLET PO SCH (21:04)
[2021-12-25] MEDS: ATORVASTATIN CA 80 MG TABLET (FP) PO SCH (21:05)
[2021-12-25] MEDS: LIDOCAINE PATCH REMOVAL MC SCH (21:05)
[2021-12-25] MEDS ORDERED: APIXABAN 5 MG TABLET PO SCH (22:00)
[2021-12-25 22:03] VITALS: BP 145/68; PULSE 71
[2021-12-26] MEDS ORDERED: CEPHALEXIN MONOHYDRATE 500 MG CAPSULE (UD) PO SCH (10:00)
[2021-12-26 19:08] LABS: SARS-CoV-2 NAA Not Detected (Not Detected)
== END 2021-12-25 22:18 | DRG 291 ==
LOC: JER 12:29 → JERBED 15:03 → J2W 22:52
PROVIDERS: ADMIT Internal Medicine; ATTEND Nurse Practitioner Acute Care
PROC: 5A09357 Assistance with Respiratory Ventilation, Less than 24 Consecutive Hours, Continuous Positive Airway Pressure (ICD-10-PCS; principal; 2021-12-17)
DX: I13.0 Hypertensive heart and chronic kidney disease with heart failure and stage 1 through stage 4 chronic kidney disease, or unspecified chronic kidney disease (principal); J96.01 Acute respiratory failure with hypoxia; J96.02 Acute respiratory failure with hypercapnia; I50.43 Acute on chronic combined systolic (congestive) and diastolic (congestive) heart failure; S42.292A Other displaced fracture of upper end of left humerus, initial encounter for closed fracture; N17.9 Acute kidney failure, unspecified; J44.1 Chronic obstructive pulmonary disease with (acute) exacerbation; D61.818 Other pancytopenia; D62 Acute posthemorrhagic anemia; I25.10 Atherosclerotic heart disease of native coronary artery without angina pectoris; I48.0 Paroxysmal atrial fibrillation; Z95.1 Presence of aortocoronary bypass graft; W19.XXXA Unspecified fall, initial encounter; Y93.89 Activity, other specified; Y92.89 Other specified places as the place of occurrence of the external cause; Y99.8 Other external cause status; I44.7 Left bundle-branch block, unspecified; I25.5 Ischemic cardiomyopathy; D64.9 Anemia, unspecified; Z79.01 Long term (current) use of anticoagulants; I71.2 Thoracic aortic aneurysm, without rupture; I34.0 Nonrheumatic mitral (valve) insufficiency; R33.9 Retention of urine, unspecified; E66.09 Other obesity due to excess calories; Z68.34 Body mass index [BMI] 34.0-34.9, adult; I36.1 Nonrheumatic tricuspid (valve) insufficiency; I27.20 Pulmonary hypertension, unspecified; N18.9 Chronic kidney disease, unspecified; L89.312 Pressure ulcer of right buttock, stage 2; N47.1 Phimosis
CPT/HCPCS: 36415; 36600; 70450-TC; 71045-TC-FY; 73030-TC-LT-FY; 73060-TC-LT-FY; 73200-TC-RT; 73560-TC-LT-FY; 73560-TC-RT-FY; 80053; 80061; 82803; 82962; 83735; 83880; 84100; 84484; 85025; 87070; 87086; 87186; 87205; 93005; 93010; 93306-TC; 94010; 94640; 94660; 97116-GP; 97163-GP; 99285-25; C9803-CS; J1644; U0003; U0005

== ENCOUNTER 2022-06-23 12:46 | Inpatient (IN) | payer OTHER, BC ==
[2022-06-23 14:47] LABS: VENOUS BASE EXCESS 6.3 mmol/L (-2-2); VENOUS O2 SATURATION 83.7 % (70-80)
[2022-06-23 14:50] LABS: VENOUS PH 7.114 (7.310-7.410)
[2022-06-23 14:51] LABS: VENOUS PCO2 131.1 mmHg (38-52)
[2022-06-23] MEDS ORDERED: ALBUTEROL SO4 2.5/IPRATROPIUM 0.5 INH SOL 3 ML VIAL.NEB. NEB ONE ×6 (14:57→16:10)
[2022-06-23 14:58] LABS: BASO % 0.2 % (0-2.0); HEMATOCRIT 45.1 % (35.4-49); HEMOGLOBIN 13.8 GM/dL (11.7-16.9); LYMPH % 6.5 % (8-40); MCH 31.4 pg (25.7-33.7); MCHC 30.7 g/dl (32.0-35.9); MEAN CELL VOLUME 102.5 fl (80-96); MEAN PLT VOLUME 9.1 fl (7.5-11.1); MONO % 10.7 % (3.8-10.2); NEUT % 81.6 % (42.8-82.8); PLATELET COUNT 134 10^3/uL (134-434); RDW 16.6 % (11.9-15.9); WHITE BLOOD COUNT 5.3 K/mm3 (4.0-10.0)
[2022-06-23] MEDS ORDERED: FUROSEMIDE 40 MG/4 ML INJECTABLE VIAL IVPUSH ONE (15:08)
[2022-06-23 15:16] LABS: BLOOD UREA NITROGEN 68.5 mg/dL (7-18); CALCIUM 8.4 mg/dL (8.5-10.1)
[2022-06-23] MEDS ORDERED: FUROSEMIDE 40 MG/4 ML INJECTABLE VIAL ONE (15:19)
[2022-06-23 15:20] LABS: CREATININE 1.9 mg/dL (0.55-1.3)
[2022-06-23 15:21] LABS: BILIRUBIN,TOTAL 0.7 mg/dL (0.2-1); TOT PROT 6.7 g/dl (6.4-8.2)
[2022-06-23 15:36] LABS: VENOUS O2 SATURATION 95.7 % (70-80)
[2022-06-23 15:38] LABS: VENOUS PCO2 136.2 mmHg (38-52); VENOUS PH 7.098 (7.310-7.410)
[2022-06-23] MEDS ORDERED: methylPREDNISolone NA SUCC 125 MG/2 ML VIAL IVPUSH ONE (15:42)
[2022-06-23] MEDS ORDERED: methylPREDNISolone NA SUCC 125 MG/2 ML VIAL ONE (15:45)
[2022-06-23] MEDS ORDERED: methylPREDNISolone NA SUCC 40 MG/1 ML VIAL IVPUSH SCH (17:00)
[2022-06-23 17:01] LABS: ARTERIAL BLD GAS O2 SATURATION 80.8 % (95-98); ARTERIAL BLOOD GAS BASE EXCESS 5.2 mmol/L (-2-2); ARTERIAL BLOOD GAS PO2 60.2 mmHg (80-100)
[2022-06-23 17:15] LABS: ALLENS TEST POSITIVE
[2022-06-23 17:16] LABS: VENT RATE 20
[2022-06-23 17:17] LABS: ARTERIAL BLOOD GAS pH 7.146 (7.350-7.450)
[2022-06-23] MEDS ORDERED: PIPERACILLIN/TAZOB 4.5 GM 4.5 GM in DEXTROSE 5%-WATER 100 ML IVPB ONE (19:17)
[2022-06-23 19:44] LABS: ARTERIAL BLD GAS O2 SATURATION 92.1 % (95-98); ARTERIAL BLOOD GAS BASE EXCESS 5.4 mmol/L (-2-2); ARTERIAL BLOOD GAS PO2 79.8 mmHg (80-100)
[2022-06-23 19:45] LABS: ALLENS TEST POSITIVE
[2022-06-23 19:57] LABS: ARTERIAL BLOOD GAS pH 7.199 (7.350-7.450)
[2022-06-23] MEDS ORDERED: GENTAMICIN IVPB ONE (20:00)
[2022-06-23] MEDS ORDERED: DEXTROSE 5% IVPB ONE (20:00)
[2022-06-23] MEDS ORDERED: WATER IVPB ONE (20:00)
[2022-06-23] MEDS: LINEZOLID 600 MG PREMIX BAG 600 MG/300 ML BAG IVPB SCH (20:22)
[2022-06-23] MEDS: PANTOPRAZOLE SODIUM 40 MG VIAL IVPUSH SCH (20:22)
[2022-06-23 20:49] LABS: URINE APPEARANCE CLEAR; URINE BILIRUBIN NEGATIVE (NEGATIVE); URINE COLOR YELLOW; URINE GLUCOSE (UA) NEGATIVE (NEGATIVE); URINE KETONE NEGATIVE (NEGATIVE); URINE LEUK ESTERASE NEGATIVE (NEGATIVE); URINE NITRITE NEGATIVE (NEGATIVE); URINE PROTEIN TRACE (NEGATIVE)
[2022-06-23] MEDS: FUROSEMIDE INJECTION 100 MG in SODIUM CHLORIDE 90 ML IVPB SCH (20:50)
[2022-06-23] MEDS ORDERED: ATORVASTATIN CA 80 MG TABLET (FP) PO SCH (22:00)
[2022-06-23] MEDS ORDERED: methylPREDNISolone NA SUCC 125 MG/2 ML VIAL IVPUSH SCH (22:00)
[2022-06-23] MEDS ORDERED: METOLAZONE 5 MG TABLET PO STA (22:15)
[2022-06-23] MEDS: CHLORHEXIDINE GLUCONATE 4% CLEANSER FOR DECOLONIZATION TP SCH (22:21)
[2022-06-23] MEDS: CARVEDILOL 25 MG TABLET (FP) PO SCH (22:21)
[2022-06-23] MEDS: MONTELUKAST NA 10 MG TABLET PO SCH (22:22)
[2022-06-23] MEDS: BUDESONIDE/FORMETEROL FUMARATE 160/4.5 mcg INHALER IH SCH (22:22)
[2022-06-23] MEDS: MUPIROCIN 2% TOPICAL OINTMENT FOR DECOLONIZATION NS SCH (22:23)
[2022-06-23] MEDS: NYSTATIN 100,000 UNIT/GM TOPICAL CREAM 15 GM TUBE TP SCH (22:23)
[2022-06-24] MEDS: FUROSEMIDE INJECTION 100 MG in SODIUM CHLORIDE 90 ML IVPB SCH ×2 (06:25→16:08)
[2022-06-24] MEDS: PREGABALIN 50 MG CAPSULE PO SCH (06:25)
[2022-06-24 07:15] LABS: ARTERIAL BLD GAS O2 SATURATION 98.5 % (95-98); ARTERIAL BLOOD GAS BASE EXCESS 5.8 mmol/L (-2-2)
[2022-06-24 07:17] LABS: VENT RATE 14
[2022-06-24 07:19] LABS: ARTERIAL BLOOD GAS pH 7.091 (7.350-7.450)
[2022-06-24 07:28] LABS: HEMATOCRIT 46.9 % (35.4-49); HEMOGLOBIN 14.3 GM/dL (11.7-16.9); MCH 30.9 pg (25.7-33.7); MCHC 30.5 g/dl (32.0-35.9); MEAN CELL VOLUME 101.4 fl (80-96); MEAN PLT VOLUME 9.4 fl (7.5-11.1); PLATELET COUNT 146 10^3/uL (134-434); RBC 4.62 M/mm3 (4.00-5.60); RDW 16.2 % (11.9-15.9); WHITE BLOOD COUNT 5.6 K/mm3 (4.0-10.0)
[2022-06-24 07:45] LABS: CALCIUM 8.3 mg/dL (8.5-10.1)
[2022-06-24 07:46] LABS: BLOOD UREA NITROGEN 67.8 mg/dL (7-18); MAGNESIUM 2.5 mg/dL (1.8-2.4)
[2022-06-24 07:49] LABS: CREATININE 1.9 mg/dL (0.55-1.3); PHOSPHOROUS 5.9 mg/dL (2.5-4.9)
[2022-06-24 07:51] LABS: BILIRUBIN,TOTAL 0.8 mg/dL (0.2-1); TOT PROT 6.8 g/dl (6.4-8.2)
[2022-06-24] MEDS: TAMSULOSIN HCL 0.4 MG CAP PO SCH (09:00)
[2022-06-24] MEDS: LINEZOLID 600 MG PREMIX BAG 600 MG/300 ML BAG IVPB SCH (09:00)
[2022-06-24 09:04] LABS: ANISOCYTOSIS 1+; MACROCYTOSIS 1+
[2022-06-24] MEDS: DOPAMINE 400 MG/D5W - 400,000 MCG/250 ML INFUS.BAG IVPB SCH (09:08)
[2022-06-24] MEDS: MUPIROCIN 2% TOPICAL OINTMENT FOR DECOLONIZATION NS SCH ×2 (09:45→23:23)
[2022-06-24] MEDS: DOCUSATE SODIUM 100 MG CAPSULE (FP) PO SCH (09:45)
[2022-06-24] MEDS: DULoxetine HCL 30 MG CAPSULE.DR PO SCH (09:46)
[2022-06-24] MEDS: CARVEDILOL 25 MG TABLET (FP) PO SCH ×2 (09:46→23:22)
[2022-06-24] MEDS: BUDESONIDE/FORMETEROL FUMARATE 160/4.5 mcg INHALER IH SCH ×2 (09:47→23:23)
[2022-06-24] MEDS: PANTOPRAZOLE SODIUM 40 MG VIAL IVPUSH SCH (09:47)
[2022-06-24] MEDS: NYSTATIN 100,000 UNIT/GM TOPICAL CREAM 15 GM TUBE TP SCH ×2 (09:47→23:23)
[2022-06-24] MEDS: HEPARIN NA (PORCINE) 5,000 UNITS/ML 1ML VIAL SQ SCH ×3 (09:49→23:25)
[2022-06-24 11:05] LABS: ARTERIAL BLD GAS O2 SATURATION 98.8 % (95-98); ARTERIAL BLOOD GAS BASE EXCESS 5.3 mmol/L (-2-2); ARTERIAL BLOOD GAS PO2 217.2 mmHg (80-100)
[2022-06-24 11:20] LABS: ALLENS TEST POSITIVE; VENT MODE PSV; VENT RATE 26
[2022-06-24 11:21] LABS: ARTERIAL BLOOD GAS PCO2 > 148.50 mmHg (35-45); ARTERIAL BLOOD GAS pH 7.037 (7.350-7.450)
[2022-06-24] MEDS: CEFTRIAXONE 2 GM in DEXTROSE 5%-WATER 100 ML IVPB SCH (14:08)
[2022-06-24] MEDS ORDERED: DEXTROSE 50%-WATER - 25 GM/50 ML VIAL IVPUSH ONE (18:47)
[2022-06-24] MEDS ORDERED: DEXTROSE 50%-WATER 25 GM/50 ML DISP.SYRIN ONE (19:24)
[2022-06-24] MEDS: CHLORHEXIDINE GLUCONATE 4% CLEANSER FOR DECOLONIZATION TP SCH (23:23)
[2022-06-24] MEDS: MONTELUKAST NA 10 MG TABLET PO SCH (23:23)
[2022-06-25] MEDS: DEXMEDETOMIDINE PREMIX 400 MCG/100 ML BAG IVPB SCH ×4 (00:01→22:13)
[2022-06-25] MEDS ORDERED: HYDROmorphone HCl 2 MG/ML VIAL IVPUSH STA (01:07)
[2022-06-25] MEDS: FUROSEMIDE INJECTION 100 MG in SODIUM CHLORIDE 90 ML IVPB SCH ×2 (03:00→13:03)
[2022-06-25] MEDS: HEPARIN NA (PORCINE) 5,000 UNITS/ML 1ML VIAL SQ SCH (05:51)
[2022-06-25] MEDS: PREGABALIN 50 MG CAPSULE PO SCH (06:37)
[2022-06-25 06:53] LABS: ARTERIAL BLD GAS O2 SATURATION 98.3 % (95-98); ARTERIAL BLOOD GAS PO2 143.1 mmHg (80-100); ARTERIAL BLOOD GAS pH 7.248 (7.350-7.450)
[2022-06-25 06:55] LABS: VENT MODE PSV; VENT RATE 26
[2022-06-25] MEDS: LINEZOLID 600 MG PREMIX BAG 600 MG in PREMIX 300 IVPB SCH ×2 (08:09→08:12)
[2022-06-25] MEDS: TAMSULOSIN HCL 0.4 MG CAP PO SCH (08:11)
[2022-06-25 08:25] LABS: BASO % 0.3 % (0-2.0); EOS % 1.2 % (0-4.5); HEMATOCRIT 43.6 % (35.4-49); HEMOGLOBIN 13.9 GM/dL (11.7-16.9); LYMPH % 8.5 % (8-40); MCH 31.7 pg (25.7-33.7); MCHC 31.9 g/dl (32.0-35.9); MEAN CELL VOLUME 99.4 fl (80-96); MEAN PLT VOLUME 9.8 fl (7.5-11.1); MONO % 12.5 % (3.8-10.2); NEUT % 77.5 % (42.8-82.8); PLATELET COUNT 131 10^3/uL (134-434); RBC 4.38 M/mm3 (4.00-5.60); RDW 15.6 % (11.9-15.9); WHITE BLOOD COUNT 6.3 K/mm3 (4.0-10.0)
[2022-06-25 08:54] LABS: PHOSPHOROUS 3.2 mg/dL (2.5-4.9)
[2022-06-25 08:56] LABS: CALCIUM 8.8 mg/dL (8.5-10.1); TOT PROT 6.7 g/dl (6.4-8.2)
[2022-06-25 08:57] LABS: BLOOD UREA NITROGEN 67.1 mg/dL (7-18); MAGNESIUM 2.3 mg/dL (1.8-2.4)
[2022-06-25 09:02] LABS: CREATININE 1.6 mg/dL (0.55-1.3)
[2022-06-25 09:03] LABS: ALBUMIN 2.9 g/dl (3.4-5.0)
[2022-06-25 09:04] LABS: BILIRUBIN,TOTAL 0.6 mg/dL (0.2-1)
[2022-06-25] MEDS: CEFTRIAXONE 2 GM in DEXTROSE 5%-WATER 100 ML IVPB SCH (09:21)
[2022-06-25] MEDS: DOPAMINE 400 MG/D5W - 400,000 MCG/250 ML INFUS.BAG IVPB SCH (09:28)
[2022-06-25] MEDS: MUPIROCIN 2% TOPICAL OINTMENT FOR DECOLONIZATION NS SCH ×2 (09:30→22:12)
[2022-06-25] MEDS: DOCUSATE SODIUM 100 MG CAPSULE (FP) PO SCH (09:30)
[2022-06-25] MEDS: NYSTATIN 100,000 UNIT/GM TOPICAL CREAM 15 GM TUBE TP SCH ×2 (09:31→22:13)
[2022-06-25] MEDS: DULoxetine HCL 30 MG CAPSULE.DR PO SCH (09:31)
[2022-06-25] MEDS: CARVEDILOL 25 MG TABLET (FP) PO SCH ×2 (09:31→22:12)
[2022-06-25] MEDS: PANTOPRAZOLE SODIUM 40 MG VIAL IVPUSH SCH (09:32)
[2022-06-25] MEDS: BUDESONIDE/FORMETEROL FUMARATE 160/4.5 mcg INHALER IH SCH ×2 (09:32→22:13)
[2022-06-25] MEDS ORDERED: NICARDIPINE 25 MG in DEXTROSE 5%-WATER - 240 ML IVPB SCH (15:15)
[2022-06-25] MEDS: ENOXAPARIN NA (PORCINE) 100 MG/1 ML DISP.SYRIN SQ SCH (22:11)
[2022-06-25] MEDS: CHLORHEXIDINE GLUCONATE 4% CLEANSER FOR DECOLONIZATION TP SCH (22:12)
[2022-06-25] MEDS: MONTELUKAST NA 10 MG TABLET PO SCH (22:13)
[2022-06-26] MEDS ORDERED: METOPROLOL TARTRATE 5 MG/5 ML VIAL IVPUSH ONE ×2 (00:13→00:24)
[2022-06-26] MEDS: FUROSEMIDE INJECTION 100 MG in SODIUM CHLORIDE 90 ML IVPB SCH ×2 (03:10→09:30)
[2022-06-26] MEDS ORDERED: hydrALAZINE HCL 20 MG/ML VIAL IVPUSH ONE ×2 (03:12→06:17)
[2022-06-26] MEDS: DEXMEDETOMIDINE PREMIX 400 MCG/100 ML BAG IVPB SCH ×2 (03:45→10:22)
[2022-06-26] MEDS: PREGABALIN 50 MG CAPSULE PO SCH (06:22)
[2022-06-26] MEDS: DOPAMINE 400 MG/D5W - 400,000 MCG/250 ML INFUS.BAG IVPB SCH (06:22)
[2022-06-26 06:40] LABS: ARTERIAL BLD GAS O2 SATURATION 98.8 % (95-98); ARTERIAL BLOOD GAS BASE EXCESS 25.4 mmol/L (-2-2); ARTERIAL BLOOD GAS pH 7.522 (7.350-7.450)
[2022-06-26 06:46] LABS: VENT MODE PSV; VENT RATE 20
[2022-06-26 08:10] LABS: BASO % 0.5 % (0-2.0); EOS % 1.2 % (0-4.5); HEMOGLOBIN 15.6 GM/dL (11.7-16.9); MCHC 31.8 g/dl (32.0-35.9); MEAN CELL VOLUME 97.3 fl (80-96); MEAN PLT VOLUME 9.4 fl (7.5-11.1); MONO % 13.2 % (3.8-10.2); NEUT % 77.1 % (42.8-82.8); PLATELET COUNT 127 10^3/uL (134-434); RBC 5.04 M/mm3 (4.00-5.60); RDW 15.4 % (11.9-15.9); WHITE BLOOD COUNT 6.1 K/mm3 (4.0-10.0)
[2022-06-26 08:17] LABS: CHLORIDE 86 mmol/L (98-107); SODIUM 144 mmol/L (136-145)
[2022-06-26 08:21] LABS: CALCIUM 9.9 mg/dL (8.5-10.1); GLUCOSE,RANDOM 116 mg/dL (74-106)
[2022-06-26 08:22] LABS: ALBUMIN 3.4 g/dl (3.4-5.0); BLOOD UREA NITROGEN 58.4 mg/dL (7-18)
[2022-06-26 08:24] LABS: PHOSPHOROUS 2.3 mg/dL (2.5-4.9); SGOT/AST 10 U/L (15-37); SGPT/ALT 14 U/L (13-61)
[2022-06-26 08:25] LABS: CREATININE 1.2 mg/dL (0.55-1.3)
[2022-06-26 08:26] LABS: BILIRUBIN,TOTAL 1.1 mg/dL (0.2-1); TOT PROT 7.7 g/dl (6.4-8.2)
[2022-06-26 08:27] LABS: ALK PHOS 103 U/L (45-117)
[2022-06-26 08:35] LABS: ANION GAP 13 MMOL/L (8-16); CO2 > 45 mmol/L (21-32)
[2022-06-26] MEDS: TAMSULOSIN HCL 0.4 MG CAP PO SCH (09:00)
[2022-06-26] MEDS: MUPIROCIN 2% TOPICAL OINTMENT FOR DECOLONIZATION NS SCH ×2 (10:22→21:33)
[2022-06-26] MEDS: DOCUSATE SODIUM 100 MG CAPSULE (FP) PO SCH (10:23)
[2022-06-26] MEDS: DULoxetine HCL 30 MG CAPSULE.DR PO SCH (10:23)
[2022-06-26] MEDS: CARVEDILOL 25 MG TABLET (FP) PO SCH ×2 (10:23→21:35)
[2022-06-26] MEDS: NYSTATIN 100,000 UNIT/GM TOPICAL CREAM 15 GM TUBE TP SCH ×2 (10:24→21:34)
[2022-06-26] MEDS: ENOXAPARIN NA (PORCINE) 100 MG/1 ML DISP.SYRIN SQ SCH ×2 (10:24→21:32)
[2022-06-26] MEDS: PANTOPRAZOLE SODIUM 40 MG VIAL IVPUSH SCH (10:24)
[2022-06-26] MEDS: BUDESONIDE/FORMETEROL FUMARATE 160/4.5 mcg INHALER IH SCH ×2 (10:45→21:34)
[2022-06-26] MEDS: CEFTRIAXONE 2 GM in DEXTROSE 5%-WATER 100 ML IVPB SCH (11:00)
[2022-06-26] MEDS: CHLORHEXIDINE GLUCONATE 4% CLEANSER FOR DECOLONIZATION TP SCH (21:33)
[2022-06-26] MEDS: MONTELUKAST NA 10 MG TABLET PO SCH (21:34)
[2022-06-27] MEDS: PREGABALIN 50 MG CAPSULE PO SCH ×2 (06:01→13:02)
[2022-06-27 06:49] LABS: ARTERIAL BLD GAS O2 SATURATION 94.6 % (95-98); ARTERIAL BLOOD GAS BASE EXCESS 22.4 mmol/L (-2-2); ARTERIAL BLOOD GAS PO2 68.1 mmHg (80-100); ARTERIAL BLOOD GAS pH 7.515 (7.350-7.450)
[2022-06-27 06:55] LABS: ALLENS TEST POSITIVE
[2022-06-27 07:39] LABS: BASO % 0.4 % (0-2.0); EOS % 1.2 % (0-4.5); HEMATOCRIT 44.2 % (35.4-49); HEMOGLOBIN 14.5 GM/dL (11.7-16.9); LYMPH % 9.2 % (8-40); MCH 31.5 pg (25.7-33.7); MCHC 32.9 g/dl (32.0-35.9); MEAN CELL VOLUME 95.9 fl (80-96); MEAN PLT VOLUME 8.8 fl (7.5-11.1); MONO % 14.9 % (3.8-10.2); NEUT % 74.3 % (42.8-82.8); PLATELET COUNT 124 10^3/uL (134-434); RBC 4.61 M/mm3 (4.00-5.60); RDW 15.4 % (11.9-15.9); WHITE BLOOD COUNT 8.1 K/mm3 (4.0-10.0)
[2022-06-27 08:38] LABS: ALBUMIN 2.9 g/dl (3.4-5.0); ALK PHOS 82 U/L (45-117); ANION GAP 13 MMOL/L (8-16); BILIRUBIN,TOTAL 1.2 mg/dL (0.2-1); BLOOD UREA NITROGEN 65.9 mg/dL (7-18); CALCIUM 9.2 mg/dL (8.5-10.1); CHLORIDE 84 mmol/L (98-107); CO2 > 45 mmol/L (21-32); CREATININE 1.3 mg/dL (0.55-1.3); GLUCOSE,RANDOM 89 mg/dL (74-106); MAGNESIUM 1.8 mg/dL (1.8-2.4); PHOSPHOROUS 1.8 mg/dL (2.5-4.9); SGOT/AST 21 U/L (15-37); SGPT/ALT 10 U/L (13-61); SODIUM 142 mmol/L (136-145); TOT PROT 6.7 g/dl (6.4-8.2)
[2022-06-27] MEDS ORDERED: FUROSEMIDE 40 MG/4 ML INJECTABLE VIAL IVPUSH SCH (10:00)
[2022-06-27] MEDS ORDERED: POTASSIUM PHOSPHATE 30 MM in SODIUM CHLORIDE 250 ML IVPB ONE (10:00)
[2022-06-27] MEDS: NYSTATIN 100,000 UNIT/GM TOPICAL CREAM 15 GM TUBE TP SCH ×2 (10:50→21:13)
[2022-06-27] MEDS: BUDESONIDE/FORMETEROL FUMARATE 160/4.5 mcg INHALER IH SCH ×2 (10:55→21:45)
[2022-06-27] MEDS: CEFTRIAXONE 2 GM in DEXTROSE 5%-WATER 100 ML IVPB SCH (10:57)
[2022-06-27] MEDS: KCL 10 MEQ IVPB 10 MEQ/100 ML INFUS.BAG IVPB SCH ×2 (10:57→13:00)
[2022-06-27] MEDS: MUPIROCIN 2% TOPICAL OINTMENT FOR DECOLONIZATION NS SCH (10:58)
[2022-06-27] MEDS: PANTOPRAZOLE SODIUM 40 MG VIAL IVPUSH SCH (10:58)
[2022-06-27] MEDS: ENOXAPARIN NA (PORCINE) 100 MG/1 ML DISP.SYRIN SQ SCH ×2 (11:00→21:08)
[2022-06-27] MEDS: DOCUSATE SODIUM 100 MG CAPSULE (FP) PO SCH ×2 (11:01→13:01)
[2022-06-27] MEDS: TAMSULOSIN HCL 0.4 MG CAP PO SCH ×2 (11:01→13:01)
[2022-06-27] MEDS: DULoxetine HCL 30 MG CAPSULE.DR PO SCH ×2 (11:01→13:01)
[2022-06-27] MEDS: CARVEDILOL 25 MG TABLET (FP) PO SCH ×3 (11:01→21:08)
[2022-06-27 15:01] LABS: ANION GAP 14 MMOL/L (8-16); BLOOD UREA NITROGEN 61.7 mg/dL (7-18); CALCIUM 9.5 mg/dL (8.5-10.1); CHLORIDE 83 mmol/L (98-107); CO2 > 45 mmol/L (21-32); CREATININE 1.4 mg/dL (0.55-1.3); GLUCOSE,RANDOM 138 mg/dL (74-106); SODIUM 142 mmol/L (136-145)
[2022-06-27] MEDS: MONTELUKAST NA 10 MG TABLET PO SCH (21:08)
[2022-06-28] MEDS: PREGABALIN 50 MG CAPSULE PO SCH (06:06)
[2022-06-28 06:36] LABS: ARTERIAL BLD GAS O2 SATURATION 98.3 % (95-98); ARTERIAL BLOOD GAS BASE EXCESS 22.4 mmol/L (-2-2); ARTERIAL BLOOD GAS PO2 106.6 mmHg (80-100); ARTERIAL BLOOD GAS pH 7.542 (7.350-7.450)
[2022-06-28 06:52] LABS: ALLENS TEST POSITIVE
[2022-06-28 08:11] LABS: BASO % 0.5 % (0-2.0); EOS % 1.7 % (0-4.5); HEMATOCRIT 43.5 % (35.4-49); HEMOGLOBIN 13.8 GM/dL (11.7-16.9); LYMPH % 9.3 % (8-40); MCH 30.8 pg (25.7-33.7); MCHC 31.9 g/dl (32.0-35.9); MEAN CELL VOLUME 96.8 fl (80-96); MEAN PLT VOLUME 9.6 fl (7.5-11.1); NEUT % 72.5 % (42.8-82.8); PLATELET COUNT 130 10^3/uL (134-434); RBC 4.49 M/mm3 (4.00-5.60); RDW 15.5 % (11.9-15.9); WHITE BLOOD COUNT 8.3 K/mm3 (4.0-10.0)
[2022-06-28 08:29] LABS: CHLORIDE 86 mmol/L (98-107); SODIUM 142 mmol/L (136-145)
[2022-06-28 08:33] LABS: ALBUMIN 2.8 g/dl (3.4-5.0); BLOOD UREA NITROGEN 67.3 mg/dL (7-18); CALCIUM 8.8 mg/dL (8.5-10.1); GLUCOSE,RANDOM 98 mg/dL (74-106); MAGNESIUM 1.9 mg/dL (1.8-2.4)
[2022-06-28 08:36] LABS: CREATININE 1.6 mg/dL (0.55-1.3); PHOSPHOROUS 3.8 mg/dL (2.5-4.9); SGPT/ALT 11 U/L (13-61)
[2022-06-28 08:38] LABS: BILIRUBIN,TOTAL 0.9 mg/dL (0.2-1); SGOT/AST 20 U/L (15-37); TOT PROT 6.3 g/dl (6.4-8.2)
[2022-06-28 08:40] LABS: ALK PHOS 73 U/L (45-117); ANION GAP 12 MMOL/L (8-16); CO2 > 45 mmol/L (21-32)
[2022-06-28] MEDS ORDERED: POTASSIUM CHLORIDE TABS 20 MEQ TABLET.ER (FP) PO ONE (08:42)
[2022-06-28] MEDS: KCL 10 MEQ IVPB 10 MEQ/100 ML INFUS.BAG IVPB SCH ×2 (10:04→10:39)
[2022-06-28] MEDS: TAMSULOSIN HCL 0.4 MG CAP PO SCH (10:39)
[2022-06-28] MEDS: DOCUSATE SODIUM 100 MG CAPSULE (FP) PO SCH (10:40)
[2022-06-28] MEDS: ENOXAPARIN NA (PORCINE) 100 MG/1 ML DISP.SYRIN SQ SCH ×2 (10:40→22:09)
[2022-06-28] MEDS: CARVEDILOL 25 MG TABLET (FP) PO SCH ×2 (10:40→22:08)
[2022-06-28] MEDS: DULoxetine HCL 30 MG CAPSULE.DR PO SCH (10:40)
[2022-06-28] MEDS: NYSTATIN 100,000 UNIT/GM TOPICAL CREAM 15 GM TUBE TP SCH ×2 (10:41→22:10)
[2022-06-28] MEDS: BUDESONIDE/FORMETEROL FUMARATE 160/4.5 mcg INHALER IH SCH ×2 (10:41→22:10)
[2022-06-28] MEDS: PANTOPRAZOLE SODIUM 40 MG VIAL IVPUSH SCH (10:41)
[2022-06-28] MEDS ORDERED: SODIUM CHLORIDE 500 ML IV STA ×2 (14:11→14:37)
[2022-06-28] MEDS ORDERED: LIDOCAINE 5% TOPICAL PATCH TP ONE (14:15)
[2022-06-28 15:22] LABS: CHLORIDE 88 mmol/L (98-107); SODIUM 140 mmol/L (136-145)
[2022-06-28 15:23] LABS: CALCIUM 8.1 mg/dL (8.5-10.1)
[2022-06-28 15:24] LABS: BLOOD UREA NITROGEN 65.1 mg/dL (7-18); GLUCOSE,RANDOM 173 mg/dL (74-106)
[2022-06-28 15:27] LABS: ANION GAP 7 MMOL/L (8-16); CO2 > 45 mmol/L (21-32); CREATININE 1.8 mg/dL (0.55-1.3)
[2022-06-28] MEDS ORDERED: KCL 10 MEQ IVPB 10 MEQ/100 ML INFUS.BAG IVPB SCH (16:45)
[2022-06-28] MEDS ORDERED: LIDOCAINE PATCH REMOVAL MC SCH (22:00)
[2022-06-28] MEDS: MONTELUKAST NA 10 MG TABLET PO SCH (22:09)
[2022-06-29] MEDS: PREGABALIN 50 MG CAPSULE PO SCH (06:43)
[2022-06-29 08:01] LABS: BASO % 0.5 % (0-2.0); EOS % 4.7 % (0-4.5); HEMATOCRIT 38.8 % (35.4-49); HEMOGLOBIN 12.6 GM/dL (11.7-16.9); LYMPH % 10.8 % (8-40); MCH 31.1 pg (25.7-33.7); MCHC 32.3 g/dl (32.0-35.9); MEAN PLT VOLUME 9.7 fl (7.5-11.1); PLATELET COUNT 102 10^3/uL (134-434); RBC 4.05 M/mm3 (4.00-5.60); WHITE BLOOD COUNT 7.5 K/mm3 (4.0-10.0)
[2022-06-29 08:08] LABS: CHLORIDE 89 mmol/L (98-107); SODIUM 142 mmol/L (136-145)
[2022-06-29 08:11] LABS: ALBUMIN 2.5 g/dl (3.4-5.0); BLOOD UREA NITROGEN 67.2 mg/dL (7-18); CALCIUM 8.4 mg/dL (8.5-10.1); GLUCOSE,RANDOM 95 mg/dL (74-106); MAGNESIUM 1.9 mg/dL (1.8-2.4)
[2022-06-29 08:14] LABS: CREATININE 1.5 mg/dL (0.55-1.3); SGOT/AST 17 U/L (15-37); SGPT/ALT 10 U/L (13-61)
[2022-06-29 08:15] LABS: PHOSPHOROUS 2.9 mg/dL (2.5-4.9)
[2022-06-29 08:16] LABS: TOT PROT 5.7 g/dl (6.4-8.2)
[2022-06-29 08:17] LABS: ALK PHOS 63 U/L (45-117)
[2022-06-29 08:18] LABS: ANION GAP 7 MMOL/L (8-16); CO2 > 45 mmol/L (21-32)
[2022-06-29] MEDS: TAMSULOSIN HCL 0.4 MG CAP PO SCH (09:25)
[2022-06-29] MEDS: DOCUSATE SODIUM 100 MG CAPSULE (FP) PO SCH (09:43)
[2022-06-29] MEDS: ENOXAPARIN NA (PORCINE) 100 MG/1 ML DISP.SYRIN SQ SCH ×2 (09:44→21:43)
[2022-06-29] MEDS: CARVEDILOL 25 MG TABLET (FP) PO SCH ×2 (09:44→21:43)
[2022-06-29] MEDS: PANTOPRAZOLE SODIUM 40 MG VIAL IVPUSH SCH (09:44)
[2022-06-29] MEDS: NYSTATIN 100,000 UNIT/GM TOPICAL CREAM 15 GM TUBE TP SCH ×2 (09:45→21:44)
[2022-06-29] MEDS: DULoxetine HCL 30 MG CAPSULE.DR PO SCH (09:45)
[2022-06-29] MEDS: BUDESONIDE/FORMETEROL FUMARATE 160/4.5 mcg INHALER IH SCH ×2 (09:56→21:44)
[2022-06-29] MEDS ORDERED: POTASSIUM CHLORIDE TABS 20 MEQ TABLET.ER (FP) PO ONE (10:06)
[2022-06-29] MEDS ORDERED: SODIUM CHLORIDE 500 ML IV STA (10:11)
[2022-06-29] MEDS: MIDODRINE HCL 5 MG TABLET PO SCH ×3 (12:30→18:08)
[2022-06-29] MEDS: MONTELUKAST NA 10 MG TABLET PO SCH (21:43)
[2022-06-30] MEDS: PREGABALIN 50 MG CAPSULE PO SCH (06:22)
[2022-06-30] MEDS: TAMSULOSIN HCL 0.4 MG CAP PO SCH (08:39)
[2022-06-30] MEDS: DOCUSATE SODIUM 100 MG CAPSULE (FP) PO SCH (09:38)
[2022-06-30] MEDS: ENOXAPARIN NA (PORCINE) 100 MG/1 ML DISP.SYRIN SQ SCH (09:38)
[2022-06-30] MEDS: PANTOPRAZOLE SODIUM 40 MG VIAL IVPUSH SCH (09:38)
[2022-06-30] MEDS: MIDODRINE HCL 5 MG TABLET PO SCH ×2 (09:38→13:36)
[2022-06-30] MEDS: CARVEDILOL 25 MG TABLET (FP) PO SCH (09:38)
[2022-06-30] MEDS: DULoxetine HCL 30 MG CAPSULE.DR PO SCH (09:39)
[2022-06-30] MEDS: BUDESONIDE/FORMETEROL FUMARATE 160/4.5 mcg INHALER IH SCH ×2 (10:30→21:26)
[2022-06-30] MEDS: NYSTATIN 100,000 UNIT/GM TOPICAL CREAM 15 GM TUBE TP SCH ×2 (10:30→21:26)
[2022-06-30 12:57] LABS: BASO % 0.6 % (0-2.0); EOS % 5.3 % (0-4.5); HEMATOCRIT 34.9 % (35.4-49); HEMOGLOBIN 11.2 GM/dL (11.7-16.9); LYMPH % 9.3 % (8-40); MCH 31.3 pg (25.7-33.7); MCHC 32.2 g/dl (32.0-35.9); MEAN CELL VOLUME 97.2 fl (80-96); MEAN PLT VOLUME 9.9 fl (7.5-11.1); MONO % 14.7 % (3.8-10.2); NEUT % 70.1 % (42.8-82.8); PLATELET COUNT 93 10^3/uL (134-434); RBC 3.59 M/mm3 (4.00-5.60); RDW 15.2 % (11.9-15.9); WHITE BLOOD COUNT 7.2 K/mm3 (4.0-10.0)
[2022-06-30 13:28] LABS: ALBUMIN 2.4 g/dl (3.4-5.0); ALK PHOS 64 U/L (45-117); ANION GAP 6 MMOL/L (8-16); BILIRUBIN,TOTAL 0.9 mg/dL (0.2-1); BLOOD UREA NITROGEN 73.4 mg/dL (7-18); CALCIUM 8.8 mg/dL (8.5-10.1); CHLORIDE 91 mmol/L (98-107); CO2 > 45 mmol/L (21-32); CREATININE 1.7 mg/dL (0.55-1.3); GLUCOSE,RANDOM 94 mg/dL (74-106); MAGNESIUM 2.3 mg/dL (1.8-2.4); SGOT/AST 17 U/L (15-37); SGPT/ALT 15 U/L (13-61); SODIUM 142 mmol/L (136-145); TOT PROT 5.8 g/dl (6.4-8.2)
[2022-06-30 16:01] VITALS: BMI 26.7
[2022-06-30] MEDS: AMINO ACIDS/PROTEIN HYDROLYS 30 ML LIQUID.PKT PO SCH (17:53)
[2022-06-30] MEDS: APIXABAN 2.5 MG TABLET PO SCH (21:26)
[2022-06-30] MEDS: MONTELUKAST NA 10 MG TABLET PO SCH (21:26)
[2022-06-30] MEDS: CARVEDILOL 6.25 MG TABLET (FP) PO SCH (21:26)
[2022-06-30] MEDS ORDERED: APIXABAN 5 MG TABLET PO SCH (22:00)
[2022-06-30] MEDS ORDERED: MIDODRINE HCL 5 MG TABLET PO SCH (22:00)
[2022-07-01] MEDS: PREGABALIN 50 MG CAPSULE PO SCH (06:26)
[2022-07-01 07:57] LABS: BASO % 0.6 % (0-2.0); EOS % 6.3 % (0-4.5); HEMATOCRIT 36.1 % (35.4-49); HEMOGLOBIN 11.4 GM/dL (11.7-16.9); MCH 30.7 pg (25.7-33.7); MCHC 31.7 g/dl (32.0-35.9); MEAN PLT VOLUME 10.5 fl (7.5-11.1); MONO % 12.7 % (3.8-10.2); NEUT % 69.4 % (42.8-82.8); PLATELET COUNT 109 10^3/uL (134-434); RBC 3.72 M/mm3 (4.00-5.60); RDW 14.9 % (11.9-15.9); WHITE BLOOD COUNT 7.2 K/mm3 (4.0-10.0)
[2022-07-01 08:09] LABS: ALBUMIN 2.6 g/dl (3.4-5.0); BLOOD UREA NITROGEN 83.3 mg/dL (7-18); CALCIUM 9.1 mg/dL (8.5-10.1); MAGNESIUM 2.2 mg/dL (1.8-2.4)
[2022-07-01 08:12] LABS: CREATININE 1.8 mg/dL (0.55-1.3)
[2022-07-01 08:15] LABS: TOT PROT 6.2 g/dl (6.4-8.2)
[2022-07-01] MEDS: TAMSULOSIN HCL 0.4 MG CAP PO SCH (10:09)
[2022-07-01] MEDS: AMINO ACIDS/PROTEIN HYDROLYS 30 ML LIQUID.PKT PO SCH ×2 (10:09→18:41)
[2022-07-01] MEDS: DULoxetine HCL 30 MG CAPSULE.DR PO SCH (10:09)
[2022-07-01] MEDS: CARVEDILOL 6.25 MG TABLET (FP) PO SCH ×3 (10:09→21:19)
[2022-07-01] MEDS: DOCUSATE SODIUM 100 MG CAPSULE (FP) PO SCH (10:09)
[2022-07-01] MEDS: PANTOPRAZOLE SODIUM 40 MG VIAL IVPUSH SCH (10:11)
[2022-07-01] MEDS: APIXABAN 2.5 MG TABLET PO SCH ×2 (10:11→21:17)
[2022-07-01] MEDS: NYSTATIN 100,000 UNIT/GM TOPICAL CREAM 15 GM TUBE TP SCH ×2 (10:11→21:17)
[2022-07-01] MEDS: BUDESONIDE/FORMETEROL FUMARATE 160/4.5 mcg INHALER IH SCH ×2 (10:12→21:17)
[2022-07-01] MEDS ORDERED: SODIUM CHLORIDE 500 ML IV STA (13:29)
[2022-07-01] MEDS: FUROSEMIDE 40 MG TABLET (FP) PO SCH (13:38)
[2022-07-01] MEDS: MONTELUKAST NA 10 MG TABLET PO SCH (21:17)
[2022-07-02] MEDS: PREGABALIN 50 MG CAPSULE PO SCH (06:15)
[2022-07-02] MEDS: FUROSEMIDE 40 MG TABLET (FP) PO SCH ×2 (06:15→15:25)
[2022-07-02] MEDS: APIXABAN 2.5 MG TABLET PO SCH ×2 (10:34→21:04)
[2022-07-02] MEDS: DULoxetine HCL 30 MG CAPSULE.DR PO SCH (10:34)
[2022-07-02] MEDS: DOCUSATE SODIUM 100 MG CAPSULE (FP) PO SCH (10:34)
[2022-07-02] MEDS: AMINO ACIDS/PROTEIN HYDROLYS 30 ML LIQUID.PKT PO SCH ×2 (10:34→17:25)
[2022-07-02] MEDS: CARVEDILOL 6.25 MG TABLET (FP) PO SCH ×2 (10:34→21:04)
[2022-07-02] MEDS: TAMSULOSIN HCL 0.4 MG CAP PO SCH (10:34)
[2022-07-02] MEDS: PANTOPRAZOLE SODIUM 40 MG VIAL IVPUSH SCH (10:34)
[2022-07-02] MEDS: BUDESONIDE/FORMETEROL FUMARATE 160/4.5 mcg INHALER IH SCH ×2 (10:34→21:04)
[2022-07-02] MEDS: NYSTATIN 100,000 UNIT/GM TOPICAL CREAM 15 GM TUBE TP SCH ×2 (10:41→21:04)
[2022-07-02 14:43] LABS: BASO % 0.9 % (0-2.0); EOS % 4.8 % (0-4.5); HEMATOCRIT 31.9 % (35.4-49); HEMOGLOBIN 10.7 GM/dL (11.7-16.9); LYMPH % 6.6 % (8-40); MCH 32.3 pg (25.7-33.7); MCHC 33.4 g/dl (32.0-35.9); MEAN CELL VOLUME 96.7 fl (80-96); MEAN PLT VOLUME 9.7 fl (7.5-11.1); NEUT % 78.7 % (42.8-82.8); PLATELET COUNT 128 10^3/uL (134-434); RDW 14.8 % (11.9-15.9); WHITE BLOOD COUNT 8.4 K/mm3 (4.0-10.0)
[2022-07-02 15:15] LABS: BLOOD UREA NITROGEN 79.9 mg/dL (7-18); CALCIUM 8.8 mg/dL (8.5-10.1); MAGNESIUM 2.1 mg/dL (1.8-2.4)
[2022-07-02 15:18] LABS: ALBUMIN 2.6 g/dl (3.4-5.0); CREATININE 1.4 mg/dL (0.55-1.3)
[2022-07-02 15:20] LABS: BILIRUBIN,TOTAL 0.8 mg/dL (0.2-1); TOT PROT 6.1 g/dl (6.4-8.2)
[2022-07-02] MEDS: MONTELUKAST NA 10 MG TABLET PO SCH (21:04)
[2022-07-03] MEDS: FUROSEMIDE 40 MG TABLET (FP) PO SCH ×2 (06:05→13:58)
[2022-07-03] MEDS: PREGABALIN 50 MG CAPSULE PO SCH (06:05)
[2022-07-03] MEDS: AMINO ACIDS/PROTEIN HYDROLYS 30 ML LIQUID.PKT PO SCH ×2 (09:00→18:16)
[2022-07-03] MEDS: TAMSULOSIN HCL 0.4 MG CAP PO SCH (09:00)
[2022-07-03] MEDS: APIXABAN 2.5 MG TABLET PO SCH ×2 (09:32→21:10)
[2022-07-03] MEDS: DULoxetine HCL 30 MG CAPSULE.DR PO SCH (09:32)
[2022-07-03] MEDS: PANTOPRAZOLE SODIUM 40 MG VIAL IVPUSH SCH (09:32)
[2022-07-03] MEDS: CARVEDILOL 6.25 MG TABLET (FP) PO SCH ×2 (09:32→21:10)
[2022-07-03] MEDS: DOCUSATE SODIUM 100 MG CAPSULE (FP) PO SCH (09:32)
[2022-07-03] MEDS: BUDESONIDE/FORMETEROL FUMARATE 160/4.5 mcg INHALER IH SCH ×2 (09:33→21:10)
[2022-07-03] MEDS: NYSTATIN 100,000 UNIT/GM TOPICAL CREAM 15 GM TUBE TP SCH ×2 (09:33→21:10)
[2022-07-03 10:28] LABS: BASO % 0.3 % (0-2.0); EOS % 4.4 % (0-4.5); HEMATOCRIT 31.3 % (35.4-49); HEMOGLOBIN 10.1 GM/dL (11.7-16.9); LYMPH % 6.4 % (8-40); MCH 31.4 pg (25.7-33.7); MCHC 32.3 g/dl (32.0-35.9); MEAN CELL VOLUME 97.3 fl (80-96); MEAN PLT VOLUME 9.8 fl (7.5-11.1); MONO % 5.6 % (3.8-10.2); NEUT % 83.3 % (42.8-82.8); PLATELET COUNT 161 10^3/uL (134-434); RBC 3.21 M/mm3 (4.00-5.60); RDW 14.9 % (11.9-15.9)
[2022-07-03 10:50] LABS: ALBUMIN 2.6 g/dl (3.4-5.0); CALCIUM 8.7 mg/dL (8.5-10.1); MAGNESIUM 2.1 mg/dL (1.8-2.4)
[2022-07-03 10:51] LABS: BLOOD UREA NITROGEN 79.5 mg/dL (7-18)
[2022-07-03 10:53] LABS: CREATININE 1.6 mg/dL (0.55-1.3)
[2022-07-03 10:55] LABS: BILIRUBIN,TOTAL 0.6 mg/dL (0.2-1); TOT PROT 6.1 g/dl (6.4-8.2)
[2022-07-03] MEDS: ACETAMINOPHEN 325 MG TABLET (FP) PO PRN (18:50)
[2022-07-03] MEDS: MONTELUKAST NA 10 MG TABLET PO SCH (21:10)
[2022-07-03 22:35] LABS: PH,URINE 6.5 (5.0-8.0); URINE APPEARANCE CLEAR; URINE BILIRUBIN NEGATIVE (NEGATIVE); URINE COLOR YELLOW; URINE GLUCOSE (UA) NEGATIVE (NEGATIVE); URINE KETONE NEGATIVE (NEGATIVE); URINE LEUK ESTERASE NEGATIVE (NEGATIVE); URINE NITRITE NEGATIVE (NEGATIVE); URINE PROTEIN TRACE (NEGATIVE); URINE UROBILINOGEN 0.2 mg/dL (0.2-1.0)
[2022-07-04] MEDS: FUROSEMIDE 40 MG TABLET (FP) PO SCH ×2 (06:06→14:31)
[2022-07-04] MEDS: PREGABALIN 50 MG CAPSULE PO SCH (06:06)
[2022-07-04] MEDS: TAMSULOSIN HCL 0.4 MG CAP PO SCH (08:51)
[2022-07-04] MEDS: AMINO ACIDS/PROTEIN HYDROLYS 30 ML LIQUID.PKT PO SCH ×2 (08:51→18:25)
[2022-07-04 09:11] LABS: BASO % 0.5 % (0-2.0); EOS % 3.3 % (0-4.5); HEMATOCRIT 30.9 % (35.4-49); HEMOGLOBIN 9.9 GM/dL (11.7-16.9); LYMPH % 7.9 % (8-40); MCH 30.9 pg (25.7-33.7); MEAN CELL VOLUME 96.6 fl (80-96); MEAN PLT VOLUME 9.8 fl (7.5-11.1); MONO % 11.2 % (3.8-10.2); NEUT % 77.1 % (42.8-82.8); PLATELET COUNT 180 10^3/uL (134-434); RDW 14.8 % (11.9-15.9); WHITE BLOOD COUNT 8.7 K/mm3 (4.0-10.0)
[2022-07-04 09:30] LABS: ALBUMIN 2.6 g/dl (3.4-5.0); CALCIUM 8.8 mg/dL (8.5-10.1)
[2022-07-04 09:31] LABS: MAGNESIUM 1.8 mg/dL (1.8-2.4)
[2022-07-04 09:33] LABS: CREATININE 1.4 mg/dL (0.55-1.3)
[2022-07-04 09:35] LABS: BILIRUBIN,TOTAL 1.2 mg/dL (0.2-1); TOT PROT 6.1 g/dl (6.4-8.2)
[2022-07-04] MEDS: APIXABAN 2.5 MG TABLET PO SCH ×2 (10:52→21:29)
[2022-07-04] MEDS: NYSTATIN 100,000 UNIT/GM TOPICAL CREAM 15 GM TUBE TP SCH ×2 (10:52→21:29)
[2022-07-04] MEDS: DOCUSATE SODIUM 100 MG CAPSULE (FP) PO SCH (10:52)
[2022-07-04] MEDS: DULoxetine HCL 30 MG CAPSULE.DR PO SCH (10:52)
[2022-07-04] MEDS: CARVEDILOL 6.25 MG TABLET (FP) PO SCH ×2 (10:52→21:29)
[2022-07-04] MEDS: BUDESONIDE/FORMETEROL FUMARATE 160/4.5 mcg INHALER IH SCH ×2 (10:53→21:29)
[2022-07-04] MEDS: PANTOPRAZOLE SODIUM 40 MG VIAL IVPUSH SCH (10:53)
[2022-07-04] MEDS: MONTELUKAST NA 10 MG TABLET PO SCH (21:29)
[2022-07-05] MEDS: PREGABALIN 50 MG CAPSULE PO SCH (06:09)
[2022-07-05] MEDS: FUROSEMIDE 40 MG TABLET (FP) PO SCH ×2 (06:09→14:20)
[2022-07-05] MEDS: TAMSULOSIN HCL 0.4 MG CAP PO SCH (08:23)
[2022-07-05] MEDS: AMINO ACIDS/PROTEIN HYDROLYS 30 ML LIQUID.PKT PO SCH ×2 (08:23→17:03)
[2022-07-05 08:54] LABS: BASO % 0.5 % (0-2.0); HEMOGLOBIN 9.6 GM/dL (11.7-16.9); LYMPH % 7.1 % (8-40); MCHC 31.9 g/dl (32.0-35.9); MEAN CELL VOLUME 97.3 fl (80-96); MEAN PLT VOLUME 9.8 fl (7.5-11.1); MONO % 12.9 % (3.8-10.2); NEUT % 75.5 % (42.8-82.8); PLATELET COUNT 212 10^3/uL (134-434); RBC 3.08 M/mm3 (4.00-5.60); RDW 14.7 % (11.9-15.9)
[2022-07-05 09:21] LABS: BLOOD UREA NITROGEN 68.1 mg/dL (7-18); CALCIUM 9.1 mg/dL (8.5-10.1); MAGNESIUM 1.7 mg/dL (1.8-2.4)
[2022-07-05 09:22] LABS: ALBUMIN 2.4 g/dl (3.4-5.0)
[2022-07-05 09:25] LABS: CREATININE 1.3 mg/dL (0.55-1.3)
[2022-07-05 09:26] LABS: BILIRUBIN,TOTAL 0.8 mg/dL (0.2-1)
[2022-07-05] MEDS: BUDESONIDE/FORMETEROL FUMARATE 160/4.5 mcg INHALER IH SCH ×2 (09:28→21:14)
[2022-07-05] MEDS: PANTOPRAZOLE SODIUM 40 MG VIAL IVPUSH SCH (09:28)
[2022-07-05] MEDS: APIXABAN 2.5 MG TABLET PO SCH ×2 (09:28→21:12)
[2022-07-05] MEDS: DULoxetine HCL 30 MG CAPSULE.DR PO SCH (09:28)
[2022-07-05] MEDS: CARVEDILOL 6.25 MG TABLET (FP) PO SCH ×2 (09:28→21:12)
[2022-07-05] MEDS: DOCUSATE SODIUM 100 MG CAPSULE (FP) PO SCH (09:28)
[2022-07-05] MEDS: NYSTATIN 100,000 UNIT/GM TOPICAL CREAM 15 GM TUBE TP SCH ×2 (09:29→21:15)
[2022-07-05] MEDS: MONTELUKAST NA 10 MG TABLET PO SCH (21:12)
[2022-07-06] MEDS: PREGABALIN 50 MG CAPSULE PO SCH (06:08)
[2022-07-06] MEDS: FUROSEMIDE 40 MG TABLET (FP) PO SCH ×2 (06:08→15:02)
[2022-07-06 08:34] LABS: BASO % 0.6 % (0-2.0); EOS % 5.5 % (0-4.5); HEMATOCRIT 29.5 % (35.4-49); HEMOGLOBIN 9.5 GM/dL (11.7-16.9); LYMPH % 8.9 % (8-40); MCH 31.3 pg (25.7-33.7); MCHC 32.2 g/dl (32.0-35.9); MEAN CELL VOLUME 97.1 fl (80-96); MEAN PLT VOLUME 9.6 fl (7.5-11.1); MONO % 11.4 % (3.8-10.2); NEUT % 73.6 % (42.8-82.8); PLATELET COUNT 230 10^3/uL (134-434); RBC 3.04 M/mm3 (4.00-5.60); RDW 14.4 % (11.9-15.9); WHITE BLOOD COUNT 6.4 K/mm3 (4.0-10.0)
[2022-07-06 08:59] LABS: ALBUMIN 2.4 g/dl (3.4-5.0); BLOOD UREA NITROGEN 67.9 mg/dL (7-18); CALCIUM 8.8 mg/dL (8.5-10.1); MAGNESIUM 1.7 mg/dL (1.8-2.4)
[2022-07-06 09:01] LABS: CREATININE 1.3 mg/dL (0.55-1.3)
[2022-07-06 09:03] LABS: BILIRUBIN,TOTAL 0.8 mg/dL (0.2-1)
[2022-07-06] MEDS ORDERED: MAGNESIUM OXIDE 400 MG TABLET (FP) PO ONE (09:15)
[2022-07-06] MEDS: DOCUSATE SODIUM 100 MG CAPSULE (FP) PO SCH (09:34)
[2022-07-06] MEDS: DULoxetine HCL 30 MG CAPSULE.DR PO SCH (09:34)
[2022-07-06] MEDS: TAMSULOSIN HCL 0.4 MG CAP PO SCH (09:34)
[2022-07-06] MEDS: CARVEDILOL 6.25 MG TABLET (FP) PO SCH ×2 (09:34→21:08)
[2022-07-06] MEDS: APIXABAN 2.5 MG TABLET PO SCH ×2 (09:34→21:08)
[2022-07-06] MEDS: BUDESONIDE/FORMETEROL FUMARATE 160/4.5 mcg INHALER IH SCH ×2 (09:35→21:09)
[2022-07-06] MEDS: NYSTATIN 100,000 UNIT/GM TOPICAL CREAM 15 GM TUBE TP SCH ×2 (09:35→21:09)
[2022-07-06] MEDS: PANTOPRAZOLE SODIUM 40 MG VIAL IVPUSH SCH (09:35)
[2022-07-06] MEDS: AMINO ACIDS/PROTEIN HYDROLYS 30 ML LIQUID.PKT PO SCH ×2 (09:35→17:18)
[2022-07-06] MEDS: MONTELUKAST NA 10 MG TABLET PO SCH (21:08)
[2022-07-07] MEDS: FUROSEMIDE 40 MG TABLET (FP) PO SCH ×2 (05:40→13:52)
[2022-07-07] MEDS: ACETAMINOPHEN 325 MG TABLET (FP) PO PRN (06:07)
[2022-07-07 07:16] LABS: BASO % 0.5 % (0-2.0); EOS % 4.8 % (0-4.5); HEMATOCRIT 30.7 % (35.4-49); HEMOGLOBIN 9.9 GM/dL (11.7-16.9); LYMPH % 7.9 % (8-40); MCH 31.4 pg (25.7-33.7); MCHC 32.4 g/dl (32.0-35.9); MEAN CELL VOLUME 96.9 fl (80-96); MEAN PLT VOLUME 9.3 fl (7.5-11.1); MONO % 9.1 % (3.8-10.2); NEUT % 77.7 % (42.8-82.8); PLATELET COUNT 268 10^3/uL (134-434); RBC 3.16 M/mm3 (4.00-5.60); RDW 14.4 % (11.9-15.9); WHITE BLOOD COUNT 6.6 K/mm3 (4.0-10.0)
[2022-07-07 07:38] LABS: ALBUMIN 2.4 g/dl (3.4-5.0); CALCIUM 9.3 mg/dL (8.5-10.1)
[2022-07-07 07:39] LABS: BLOOD UREA NITROGEN 60.5 mg/dL (7-18); MAGNESIUM 1.6 mg/dL (1.8-2.4)
[2022-07-07 07:41] LABS: CREATININE 1.2 mg/dL (0.55-1.3)
[2022-07-07 07:43] LABS: BILIRUBIN,TOTAL 0.8 mg/dL (0.2-1); TOT PROT 6.2 g/dl (6.4-8.2)
[2022-07-07] MEDS: APIXABAN 2.5 MG TABLET PO SCH (09:41)
[2022-07-07] MEDS: DULoxetine HCL 30 MG CAPSULE.DR PO SCH (09:41)
[2022-07-07] MEDS: TAMSULOSIN HCL 0.4 MG CAP PO SCH (09:41)
[2022-07-07] MEDS: AMINO ACIDS/PROTEIN HYDROLYS 30 ML LIQUID.PKT PO SCH (09:41)
[2022-07-07] MEDS: PANTOPRAZOLE SODIUM 40 MG VIAL IVPUSH SCH (09:41)
[2022-07-07] MEDS: DOCUSATE SODIUM 100 MG CAPSULE (FP) PO SCH (09:41)
[2022-07-07] MEDS: CARVEDILOL 6.25 MG TABLET (FP) PO SCH (09:41)
[2022-07-07] MEDS: NYSTATIN 100,000 UNIT/GM TOPICAL CREAM 15 GM TUBE TP SCH (09:42)
[2022-07-07] MEDS: BUDESONIDE/FORMETEROL FUMARATE 160/4.5 mcg INHALER IH SCH (09:43)
[2022-07-07] MEDS ORDERED: MULTIVITAMINS (DAILY MVI) TABLET (FP) PO SCH (10:00)
[2022-07-07 11:42] VITALS: BP 122/77; RESP 19; TEMP 98.7
[2022-07-07] MEDS ORDERED: CARVEDILOL 6.25 MG TABLET (FP) PO ONE (12:30)
[2022-07-07 13:09] VITALS: PULSE 89
== END 2022-07-07 14:25 | DRG 291 ==
LOC: JER 12:46 → JERBED 15:15 → JICU 18:17 → J4S 06-29 20:13
PROVIDERS: ADMIT Internal Medicine Pulmonary Disease; ATTEND Nurse Practitioner Acute Care
DX: I13.0 Hypertensive heart and chronic kidney disease with heart failure and stage 1 through stage 4 chronic kidney disease, or unspecified chronic kidney disease (principal); G93.41 Metabolic encephalopathy; I50.43 Acute on chronic combined systolic (congestive) and diastolic (congestive) heart failure; J96.21 Acute and chronic respiratory failure with hypoxia; J96.22 Acute and chronic respiratory failure with hypercapnia; N17.9 Acute kidney failure, unspecified; J44.1 Chronic obstructive pulmonary disease with (acute) exacerbation; E87.29 Other acidosis; I43 Cardiomyopathy in diseases classified elsewhere; N18.30 Chronic kidney disease, stage 3 unspecified; I25.10 Atherosclerotic heart disease of native coronary artery without angina pectoris; E78.5 Hyperlipidemia, unspecified; I48.0 Paroxysmal atrial fibrillation; D69.6 Thrombocytopenia, unspecified; D64.9 Anemia, unspecified; E87.6 Hypokalemia; Z95.1 Presence of aortocoronary bypass graft; J44.9 Chronic obstructive pulmonary disease, unspecified; Z66 Do not resuscitate; L30.4 Erythema intertrigo
CPT/HCPCS: 0241U-QW; 36415; 36600; 71045-TC-FY; 74176-TC; 76775-TC; 80048; 80053; 81003; 82570; 82803; 82962; 83735; 83880; 84100; 84300; 84439; 84443; 84484; 85025; 87040; 87086; 87186; 87899; 93005; 93010; 93306-TC; 94660; 97116-GP; 97163-GP; 99291; C9803-CS; J1644; U0003; U0005

== ENCOUNTER 2022-08-09 05:46 | Day surgery (SDC) | payer OTHER, BC ==
[2022-08-05 15:28] VITALS: BMI 30.2
[2022-08-09] MEDS ORDERED: EPI-SHUGARCAINE (EPINEPHRINE 0.025% & LIDOCAINE-PF 0.75%) 4ML ONE (08:18)
[2022-08-09] MEDS ORDERED: BETAXOLOL HCL 0.25% OPHTHALMIC 10 ML DROPSBTL ONE (08:18)
[2022-08-09] MEDS ORDERED: BACITRACIN/POLYMYXIN OPH OINT 3.5 GM TUBE ONE (08:18)
[2022-08-09] MEDS ORDERED: NEO/POLYMYX B SULF/DEXAMETH OPHTHALMIC 5ML BOTTLE ONE (08:19)
[2022-08-09] MEDS ORDERED: POVIDONE-IODINE 5% OPHTHALMIC PREP 30 ML SOLUTION ONE (08:19)
[2022-08-09] MEDS ORDERED: BSS (NA/CA/MG/K) BALANCED SALT SOLUTION OPHTH SOLN 15 ML BOTTLE ONE (08:19)
[2022-08-09] MEDS ORDERED: TETRACAINE 0.5% OPHTH SOLN 2 ML BOTTLE ONE (08:19)
[2022-08-09] MEDS ORDERED: DEXMEDETOMIDINE HCL 200 MCG/2 ML IVPB ONE (11:17)
[2022-08-09] MEDS ORDERED: PROPOFOL 20 ML ONE (11:29)
[2022-08-09] MEDS ORDERED: FENTANYL CITRATE/PF 50 MCG/ML VIAL ONE ×2 (11:29→11:58)
[2022-08-09] MEDS ORDERED: LIDOCAINE HCL/PF 2% SDV 5ML VIAL ONE (11:29)
[2022-08-09] MEDS ORDERED: LIDOCAINE HCL 1%, 10 MG/ML (20ML VIAL) ONE (11:37)
[2022-08-09] MEDS ORDERED: LIDOCAINE HCL 1%, 10 MG/ML (20ML VIAL) NR ONE (11:47)
[2022-08-09] MEDS ORDERED: ONDANSETRON 4 MG/2 ML VIAL IVPUSH PRN (12:37)
[2022-08-09] MEDS ORDERED: ACETAMINOPHEN 1000 MG/100 ML BAG IVPB ONE (12:38)
[2022-08-09] MEDS ORDERED: LACTATED RINGERS SOLUTION 1,000 ML IV SCH (12:45)
[2022-08-09 14:34] VITALS: RESP 20
[2022-08-09 16:52] VITALS: TEMP 97.3
[2022-08-09 18:25] VITALS: BP 120/67; PULSE 78
== END 2022-08-09 18:15 | disposition home or self-care (01) ==
LOC: JASU-SURG 05:46
PROVIDERS: ATTEND Surgery Vascular Surgery
PROC: 0Y9F0ZZ Drainage of Right Knee Region, Open Approach (ICD-10-PCS; 2022-08-09)
PROC: 0JBP0ZZ Excision of Left Lower Leg Subcutaneous Tissue and Fascia, Open Approach (ICD-10-PCS; principal; 2022-08-09 11:00)
DX: S80.02XS Contusion of left knee, sequela (principal); W19.XXXS Unspecified fall, sequela
CPT/HCPCS: 88304-TC; 94760

== ENCOUNTER 2024-02-05 12:09 | Inpatient (IN) | payer OTHER, BC ==
[2024-02-05] MEDS ORDERED: METOPROLOL TARTRATE 5 MG/5 ML VIAL ONE (12:39)
[2024-02-05] MEDS: METOPROLOL TARTRATE 5 MG/5 ML VIAL IVPUSH ONE (12:47)
[2024-02-05] MEDS ORDERED: FUROSEMIDE 40 MG/4 ML INJECTABLE VIAL ONE (13:35)
[2024-02-05 13:39] LABS: BASO % 0.5 % (0-2.0); EOS % 0.7 % (0-4.5); HEMATOCRIT 41.8 % (35.4-49); HEMOGLOBIN 14.1 GM/dL (11.7-16.9); LYMPH % 6.3 % (8-40); MCH 32.5 pg (25.7-33.7); MCHC 33.7 g/dl (32.0-35.9); MEAN CELL VOLUME 96.4 fl (80-96); MEAN PLT VOLUME 9.2 fl (7.5-11.1); MONO % 9.3 % (3.8-10.2); NEUT % 83.2 % (42.8-82.8); PLATELET COUNT 162 10^3/uL (134-434); RBC 4.33 M/mm3 (4.00-5.60); RDW 13.7 % (11.9-15.9); WHITE BLOOD COUNT 8.7 K/mm3 (4.0-10.0)
[2024-02-05] MEDS: FUROSEMIDE 40 MG/4 ML INJECTABLE VIAL IVPUSH ONE ×2 (13:39→21:20)
[2024-02-05 13:41] LABS: VENOUS BASE EXCESS -1.2 mmol/L (-2-2); VENOUS O2 SATURATION 75.1 % (70-80); VENOUS PCO2 49.2 mmHg (38-52); VENOUS PH 7.33 (7.310-7.410)
[2024-02-05 13:48] LABS: INR 1.16 (0.83-1.09)
[2024-02-05 13:50] LABS: EPI CELLS 4 /uL (0-25.1); HYALINE CASTS 0 /uL (0-3.1); PH,URINE 6.5 (5.0-8.0); URINE APPEARANCE CLEAR; URINE BACTERIA 18 /uL (0-1359); URINE BILIRUBIN NEGATIVE (NEGATIVE); URINE COLOR YELLOW; URINE GLUCOSE (UA) NEGATIVE (NEGATIVE); URINE KETONE NEGATIVE (NEGATIVE); URINE LEUK ESTERASE TRACE (NEGATIVE); URINE NITRITE NEGATIVE (NEGATIVE); URINE PROTEIN 2+ (NEGATIVE); URINE RBC 10 /uL (0-23.9); URINE WBC 30 /uL (0-25.8)
[2024-02-05 13:59] LABS: ACTIVATED PTT 37.6 SECONDS (25.2-36.5)
[2024-02-05 14:02] LABS: POTASSIUM 4.1 mmol/L (3.5-5.1)
[2024-02-05 14:04] LABS: ALBUMIN 3.9 g/dl (3.4-5.0); BLOOD UREA NITROGEN 33.2 mg/dL (7-18); CALCIUM 9.6 mg/dL (8.5-10.1)
[2024-02-05 14:07] LABS: CREATININE 1.6 mg/dL (0.55-1.3)
[2024-02-05 14:09] LABS: BILIRUBIN,TOTAL 1.5 mg/dL (0.2-1)
[2024-02-05 14:13] LABS: N-TERMINAL BNP 5466.2 pg/ml (5-450)
[2024-02-05] MEDS: NICARDIPINE 25 MG in DEXTROSE 5%-WATER - 240 ML IVPB SCH (16:40)
[2024-02-05] MEDS: PANTOPRAZOLE SODIUM 40 MG VIAL IVPUSH SCH (21:20)
[2024-02-05] MEDS: MUPIROCIN 2% TOPICAL OINTMENT FOR DECOLONIZATION NS SCH (21:20)
[2024-02-05] MEDS: TAMSULOSIN HCL 0.4 MG CAP PO SCH (21:37)
[2024-02-05] MEDS: APIXABAN 2.5 MG TABLET PO SCH (21:38)
[2024-02-05] MEDS: ATORVASTATIN CA 80 MG TABLET (FP) PO SCH (21:38)
[2024-02-05] MEDS: CARVEDILOL 25 MG TABLET (FP) PO SCH (21:38)
[2024-02-05] MEDS: MONTELUKAST NA 10 MG TABLET PO SCH (21:38)
[2024-02-05] MEDS: VALSARTAN 40 MG TABLET PO SCH (21:40)
[2024-02-05] MEDS: NYSTATIN 100,000 UNIT/GM TOPICAL CREAM 15 GM TUBE TP SCH (22:11)
[2024-02-05] MEDS: CHLORHEXIDINE GLUCONATE 4% CLEANSER FOR DECOLONIZATION TP SCH (22:11)
[2024-02-06 07:06] LABS: BASO % 0.4 % (0-2.0); EOS % 1.6 % (0-4.5); HEMATOCRIT 35.7 % (35.4-49); HEMOGLOBIN 12.2 GM/dL (11.7-16.9); LYMPH % 14.6 % (8-40); MCH 32.9 pg (25.7-33.7); MCHC 34.1 g/dl (32.0-35.9); MEAN CELL VOLUME 96.3 fl (80-96); MEAN PLT VOLUME 9.4 fl (7.5-11.1); MONO % 15.4 % (3.8-10.2); PLATELET COUNT 142 10^3/uL (134-434); RBC 3.71 M/mm3 (4.00-5.60); RDW 13.2 % (11.9-15.9); WHITE BLOOD COUNT 5.8 K/mm3 (4.0-10.0)
[2024-02-06 07:17] LABS: POTASSIUM 4.3 mmol/L (3.5-5.1)
[2024-02-06 07:20] LABS: ALBUMIN 3.2 g/dl (3.4-5.0); CALCIUM 9.1 mg/dL (8.5-10.1); MAGNESIUM 1.8 mg/dL (1.8-2.4)
[2024-02-06 07:21] LABS: BLOOD UREA NITROGEN 31.5 mg/dL (7-18)
[2024-02-06 07:23] LABS: CREATININE 1.6 mg/dL (0.55-1.3); INR 1.53 (0.83-1.09); PHOSPHOROUS 3.4 mg/dL (2.5-4.9); PROTHROMBIN TIME (PATIENT) 17.1 SEC (9.7-13.0)
[2024-02-06 07:25] LABS: ACTIVATED PTT 36.3 SECONDS (25.2-36.5); BILIRUBIN,TOTAL 2.3 mg/dL (0.2-1); TOT PROT 6.8 g/dl (6.4-8.2)
[2024-02-06] MEDS: VANCOMYCIN/WATER FOR INJ (PEG) 1 GM/200 ML BAG IVPB ONE (08:26)
[2024-02-06] MEDS: FUROSEMIDE 40 MG/4 ML INJECTABLE VIAL IVPUSH SCH (13:39)
[2024-02-06] MEDS ORDERED: FUROSEMIDE 40 MG/4 ML INJECTABLE VIAL IVPUSH SCH (14:00)
[2024-02-07 07:05] LABS: HEMATOCRIT 35.5 % (35.4-49); HEMOGLOBIN 11.7 GM/dL (11.7-16.9); MCH 31.9 pg (25.7-33.7); MCHC 32.9 g/dl (32.0-35.9); MEAN CELL VOLUME 97.2 fl (80-96); MEAN PLT VOLUME 9.4 fl (7.5-11.1); PLATELET COUNT 133 10^3/uL (134-434); RBC 3.66 M/mm3 (4.00-5.60); RDW 13.6 % (11.9-15.9); WHITE BLOOD COUNT 6.1 K/mm3 (4.0-10.0)
[2024-02-07 07:19] LABS: POTASSIUM 3.2 mmol/L (3.5-5.1)
[2024-02-07 07:29] LABS: BLOOD UREA NITROGEN 35.3 mg/dL (7-18); CALCIUM 8.7 mg/dL (8.5-10.1); MAGNESIUM 1.8 mg/dL (1.8-2.4)
[2024-02-07 07:33] LABS: CREATININE 1.6 mg/dL (0.55-1.3); PHOSPHOROUS 3.2 mg/dL (2.5-4.9)
[2024-02-07 07:34] LABS: TOT PROT 6.3 g/dl (6.4-8.2)
[2024-02-07 07:35] LABS: BILIRUBIN,TOTAL 1.3 mg/dL (0.2-1)
[2024-02-07] MEDS: TAMSULOSIN HCL 0.4 MG CAP PO SCH (08:37)
[2024-02-07] MEDS: VANCOMYCIN/WATER FOR INJ (PEG) 1,000 MG/200 ML BAG IVPB ONE (08:54)
[2024-02-07] MEDS: VALSARTAN 40 MG TABLET PO SCH (09:03)
[2024-02-07] MEDS: CARVEDILOL 6.25 MG TABLET (FP) PO SCH (09:03)
[2024-02-07] MEDS: PANTOPRAZOLE 40 MG TABLET PO SCH (09:04)
[2024-02-07] MEDS: AMIODARONE HCL 200 MG TABLET PO SCH (09:08)
[2024-02-07] MEDS: POTASSIUM CHLORIDE ORAL LIQUID 20 MEQ/15 ML PO ONE ×2 (11:22→15:25)
[2024-02-07 14:07] VITALS: BMI 29.3
[2024-02-08 07:18] LABS: POTASSIUM 4.2 mmol/L (3.5-5.1)
[2024-02-08 07:20] LABS: CALCIUM 9.2 mg/dL (8.5-10.1)
[2024-02-08 07:21] LABS: BLOOD UREA NITROGEN 39.6 mg/dL (7-18); MAGNESIUM 1.9 mg/dL (1.8-2.4)
[2024-02-08 07:24] LABS: CREATININE 1.7 mg/dL (0.55-1.3)
[2024-02-08] MEDS: FUROSEMIDE 40 MG TABLET (FP) PO SCH (14:00)
[2024-02-09] MEDS ORDERED: ACETAMINOPHEN 325 MG TABLET (FP) PO PRN (06:36)
[2024-02-09 07:35] LABS: POTASSIUM 4.4 mmol/L (3.5-5.1)
[2024-02-09 07:41] LABS: CALCIUM 9.8 mg/dL (8.5-10.1)
[2024-02-09 07:42] LABS: BLOOD UREA NITROGEN 38.8 mg/dL (7-18)
[2024-02-09 07:44] LABS: CREATININE 1.7 mg/dL (0.55-1.3)
[2024-02-09 07:46] LABS: BILIRUBIN,TOTAL 1.4 mg/dL (0.2-1); TOT PROT 6.8 g/dl (6.4-8.2)
[2024-02-09 10:18] VITALS: TEMP 98.3
[2024-02-09 12:19] VITALS: BP 127/66; PULSE 88; RESP 20
== END 2024-02-09 15:30 | disposition home or self-care (01) | DRG 291 ==
LOC: JER 12:09 → JERBED 13:12 → JICU 14:37 → J2W 02-08 18:04
PROVIDERS: ADMIT Internal Medicine Pulmonary Disease
DX: I13.0 Hypertensive heart and chronic kidney disease with heart failure and stage 1 through stage 4 chronic kidney disease, or unspecified chronic kidney disease (principal); I50.43 Acute on chronic combined systolic (congestive) and diastolic (congestive) heart failure; J96.22 Acute and chronic respiratory failure with hypercapnia; J96.21 Acute and chronic respiratory failure with hypoxia; L03.211 Cellulitis of face; J44.1 Chronic obstructive pulmonary disease with (acute) exacerbation; N18.9 Chronic kidney disease, unspecified; E78.00 Pure hypercholesterolemia, unspecified; I25.10 Atherosclerotic heart disease of native coronary artery without angina pectoris; I08.1 Rheumatic disorders of both mitral and tricuspid valves; I48.0 Paroxysmal atrial fibrillation; M54.50 Low back pain, unspecified; D69.6 Thrombocytopenia, unspecified; G47.33 Obstructive sleep apnea (adult) (pediatric); G62.89 Other specified polyneuropathies; K59.00 Constipation, unspecified; Z95.1 Presence of aortocoronary bypass graft; Z95.0 Presence of cardiac pacemaker; Z99.81 Dependence on supplemental oxygen
CPT/HCPCS: 0241U-QW; 36415; 71045-TC-FY; 76775-TC; 80048; 80053; 81003; 82803; 82962; 83735; 83880; 84100; 84484; 85025; 85027; 85610; 85730; 87040; 87086; 93005; 93010; 93306-TC; 94660; 94761; 97116-GP; 97161-GP; 99285-25; G0480